=== PATIENT | male | born 1980 | race Caucasian/White ===

== ENCOUNTER → 2019-02-21 | Outpatient (CLI) | payer OTHER ==
--- NOTE | 2019-02-22 08:34 | CT ---
EXAMINATION TYPE: CT iac wo con DATE OF EXAM: 02/21/2019 COMPARISON: 03/06/2016 HISTORY: Right sided ear pain and hearing loss CT DLP: 251 mGycm. Automated Exposure Control for Dose Reduction was Utilized. TECHNIQUE: CT scan of internal auditory canal is performed without contrast, thin cut axial images ar e obtained, coronal reformatted images are also reviewed. FINDINGS: Just cranial to the oval windows bilaterally linear opacity that is attenuation of complex fluid is seen. The previously seen fluid within the petrous apices has resolved in the interim. There is no blunting of the scutum bilaterally. The external auditory canals are patent bilaterally. Mast oid air cells show no evidence of abnormal opacification bilaterally. The middle ear ossicles are sy mmetric and unremarkable. The cochlea and the semicircular canals are symmetric and unremarkable. V estibular aqueduct and internal carotid canal appear unremarkable. Temporomandibular joints are maintained bilaterally. Visualized paranasal sinuses are grossly clear other than mild mucosal thickening in the ethmoid sinuses. The previously seen circumferential mucosa l thickening of the sphenoid sinus is resolved in the interim. Visualized portion brain parenchyma is suboptimally evaluated given technique. IMPRESSION: 1. Bandlike scans complex fluid within the mesotympanum bilaterally may represent sequela of chronic otitis with formation of a septation. 2. Resolution of the previously seen scant petrous apical fluid in the setting of prior petrous apici tis and resolved sphenoid sinus mucosal thickening. 3. Scant mucosal thickening of the ethmoid sinuses.
== END | disposition home or self-care (01) ==
LOC: RADCTMAIN 16:30
PROVIDERS: ATTEND Family Medicine
DX: R93.49 Abnormal radiologic findings on diagnostic imaging of other urinary organs (principal); H70.11 Chronic mastoiditis, right ear
CPT/HCPCS: 70480

== ENCOUNTER → 2021-12-25 | Outpatient (CLI) | payer OTHER ==
--- NOTE | 2021-12-26 03:09 | MR ---
EXAMINATION TYPE: MR lumbar spine wo/w con DATE OF EXAM: 12/25/2021 COMPARISON: 02/10/2012 HISTORY: LBP, BLE radiculopathy. CONTRAST: Standard multiplanar, multisequence MRI departmental protocol images were obtained without contrast a nd with 14 mL intravenous Gadavist gadolinium contrast. The lumbar vertebrae have normal alignment. Disc spaces are fairly well-maintained. There is no compr ession fracture. Posterior elements are intact. Facet joints are intact. The neural foramina are well maintained. There is no lumbar paraspinal mass. There is no spinal stenosis. There is no evidence of lumbar disc herniation. Sacroiliac joints are intact. Lumbar nerve roots appear normal. IMPRESSION: Negative MR scan of the lumbar spine. No lumbar disc herniation or spinal stenosis. No change.
== END | disposition home or self-care (01) ==
LOC: RADMRIMAIN 21:38
PROVIDERS: ATTEND Family Medicine
DX: M54.16 Radiculopathy, lumbar region (principal)
CPT/HCPCS: 72158; A9585

== ENCOUNTER → 2022-01-08 | Outpatient (CLI) | payer OTHER ==
--- NOTE | 2022-01-08 09:27 | P.CON ---
Consult Note - . Consult date: 01/08/22 Assessment/Plan:: HISTORY OF PRESENT ILLNESS: 41 year old male as a referral from Dr. Alda Milton presents today for lower back pain due to muscle strain. Patient states his lower back pain is of an achy, throbbing character, 3 out of 10 in intensity, escalates as high as 8-9 out of 10 in intensity with bending, lifting or extending his spine. He also admits to achy pain that radiates to his left buttock. Alleviates pain with Motrin and Tylenol OTC cannabis use, injections in 2005, physical therapy in 2005, chiropractic treatments months ago, weekly cardio regimen at the gym, and rest. Past Medical History: GERD/Reflux, Hearing Disorder / Deafness, Hypertension, Lumbar DDD, Heterozygous MTHFR, ADD/ADHD, Bipolar Disorder Past Surgical History: Joint Replacement, DVT x3 (last 2012), L knee replacement, L index finger surgery Social History: Denies tobacco use. Rare ETOH use. Cannabis user. Family History: Mother- behavioral health. Father- CAD, [place], Defibrillator implantation. Brother- Denies. Sister- skin cancer All: NKDA Meds: See list REVIEW OF ORGAN SYSTEMS: CONSTITUTIONAL: No fevers or chills. No recent weight loss. HEENT: No visual acuity loss, eye pain, difficulties with hearing. No nosebleeds. No difficulty swallowing. RESPIRATORY: Denies any troubles with breathing or dyspnea on exertion. CARDIOVASCULAR: Denies any chest pain, palpitations, or recent heart attacks. GASTROINTESTINAL: Denies fatty food intolerance. Has change in bowel habits and gas bloat. GENITOURINARY: Denies any blood in urine. Has increased urinary frequency. NEUROLOGICAL: + numbness and tingling along the distal extremities. No seizure disorders or headaches. MUSCULOSKELETAL: + back pain SKIN: No skin cancer. No rash. PSYCHIATRIC: Denies current depression or suicidal thoughts. ENDOCRINE: Denies current thyroid disorders. Denies any blood sugar glucose intolerance. HEME/LYMPHATIC: Denies any lumps and bumps around the neck. History of deep venous thrombosis. ALLERGY/IMMUNOLOGY: No immunoglobulin therapy. No immune deficiencies. BREAST: Denies current breast lumps, pain or nipple discharge. Physical Examinations : Constitutional : Cooperative , not in acute distress . HEENT: Neck supple. No Lymphadenopathy. Normal thyroid size . Eyes no ptosis , no icterus, no photophobia . Hearing intact. Normal oropharynx. No Thrush. Respiratory : Chest clear to auscultations bilaterally. No wheezing. No rhonchi. Cardiovascular : Regular rate and rhythm , S1 / S2. No S3 . No S4. Gastrointestinal : Abdomen soft. No tenderness. Bowel sounds x 4. No organomegaly . Genitourinary : Deferred. Neurologic : Cranial nerve II to XII intact. No focal neurological deficits. Psychiatric : alert & oriented x 3. Matching mood & appropriate affect. Judgment & insight intact. Lymphatic No Lymphadenopathy. Musculoskeletal : Cervical Spine Motor strength in the deltoid and biceps: Normal right side. Normal Left side Motor strength biceps and the wrist extensors: Normal right side . Normal left side Motor strength in the triceps muscle: Normal right side. Normal left side Deep tendon reflexes: Normal at the biceps. Normal at Brachioradialis. Normal at triceps Cervical facet loading test: positive bilaterally Spurling test: positive bilaterally Neck distraction test: positive bilaterally Gatito sign: positive bilaterally Lumbar spine Motor strength lower extremities ,thigh and legs 5/5 Right side , 5/5 Left side Deep tendon reflexes : Normal Knee Jerk. Normal Ankle Jerk Vertebral body tenderness over Lumbar facet Loading Test: positive Right / positive Left Range of motion of the lumbar spine Flexion 30 degrees, extension 10 degrees Straight Leg Raise test: Left/ Right positive at degree Hai test: positive right / positive left. Severe tenderness over the Sacroiliac joint on the Right / Left sides Gaenslen test: positive bilaterally Seated flexion test: positive bilaterally. Imaging: MRI of the lumbar spine from 12/25/21 reviewed. Assessment/ Plan : Recommendation of TPI of the left L3 to S1. He need a series of injections to obtain sufficient pain relief. Risks, benefits of procedure discussed and patient verbalized understanding. Denies aspirin or anti- coagulant use. Denies medical history of DM. All questions answered. I have spent greater than 50 minutes on patient care today. Dr Sigala was available by phone for the evaluation of this patient. The time was used to review the medical records including relevant urine studies and Prescription history (MAPs), review of the available imaging, evaluation and examination of the patient, coordination of care with the medical staff and if applicable referring physicians, as well as creation of the medical record PQRS Measure Charge Sheet PQRS Narrative: Smoking Status Never smoker Narcotic Agreement Date Signed 06/26/14 Pain Intensity [Lower Back] 7 Scale Used Numeric (1 - 10) Hx Alcohol Use (MH) Yes Home Medications: Ambulatory Orders Aspirin 81 mg PO DAILY chew 01/31/16 Apixaban [Eliquis] 5 mg PO BID 01/06/22 Atorvastatin [Lipitor] 20 mg PO DAILY 01/06/22 Esomeprazole Magnesium 40 mg PO DAILY 01/06/22 Vortioxetine Hydrobromide [Trintellix] 10 mg PO DAILY 01/06/22 dilTIAZem HCL [dilTIAZem HCL 24Hr ER (Xr)] 240 mg PO DAILY 01/06/22 hydroCHLOROthiazide [Hydrodiuril] 25 mg PO DAILY 01/06/22 lisinopriL 40 mg PO DAILY 01/06/22 traZODone HCL 100 mg PO HS 01/06/22
[2022-01-08 10:55] VITALS: BP 186/89; PULSE 87; RESP 16; TEMP 97.9
== END ==
LOC: PNWHC3 08:37
PROVIDERS: ATTEND Physician Assistant Medical
DX: M54.50 Low back pain, unspecified (principal); K21.9 Gastro-esophageal reflux disease without esophagitis; H91.90 Unspecified hearing loss, unspecified ear; I10 Essential (primary) hypertension; F31.9 Bipolar disorder, unspecified; Z79.899 Other long term (current) drug therapy
CPT/HCPCS: 99211

== ENCOUNTER 2022-01-09 09:41 | Day surgery (SDC) | payer OTHER ==
[2022-01-06 12:18] VITALS: BMI 43.0
--- NOTE | 2022-01-09 07:50 | P.GSHP ---
History of Present Illness H&P Date: 01/09/22 CHIEF COMPLAINT: Colon screen HISTORY OF PRESENT ILLNESS: The patient is a 41-year-old male who presents for colon screen. Lower endoscopy was offered for further evaluation and management. PAST MEDICAL HISTORY: Please see list. PAST SURGICAL HISTORY: Please see list. MEDICATIONS: Please see list. ALLERGIES: Please see list. SOCIAL HISTORY: No illicit drug use FAMILY HISTORY: No reports of Crohn disease or ulcerative colitis. REVIEW OF ORGAN SYSTEMS: CONSTITUTIONAL: No reports of fevers or chills. PHYSICAL EXAM: VITAL SIGNS: Stable GENERAL: Well-developed pleasant in no acute distress. HEENT: No scleral icterus. Extraocular movements grossly intact. Moist buccal mucosa. NECK: Supple without lymphadenopathy. CHEST: Unlabored respirations. Equal bilateral excursions. CARDIOVASCULAR: Regular rate and rhythm. Distal 2+ pulses. ABDOMEN: Soft, nontender, nondistended. MUSCULOSKELETAL: No clubbing, cyanosis, or edema. ASSESSMENT: 1. Colon screen. PLAN: 1. Recommend proceeding with a lower endoscopy Past Medical History Past Medical History: Atrial Fibrillation, Blood Disorder, GERD/Reflux, Hearing Disorder / Deafness, Hyperlipidemia, Hypertension, Myocardial Infarction (SC) Additional Past Medical History / Comment(s): DVT X 3- LAST TIME 2012- LT LEG, LUMBAR DDD- . HAS HX MTHFR GENE MUTATION-POSITIVE FOR HETEROZYGOUS PER DR. FRANCISCO'S OFFICE,. SLIGHT SC-09/2021 Last Myocardial Infarction Date:: 09/2021 History of Any Multi-Drug Resistant Organisms: None Reported Past Surgical History: Heart Catheterization, Joint Replacement Additional Past Surgical History / Comment(s): LEFT KNEE REPLACEMENT AND LT INDEX JOINT REPLACEMENT, PAIN CLINIC PROCEDURES, COLONOSCOPY Past Anesthesia/Blood Transfusion Reactions: Previous Problems w/ Anesthesia, Family History of Problems w/ Anesthesia, Motion Sickness Additional Past Anesthesia/Blood Transfusion Reaction / Comment(s): HARD TO PUT TO SLEEP-(pt and father) Smoking Status: Never smoker - Past Family History Father Family Medical History: Coronary Artery Disease (CAD) Additional Family Medical History / Comment(s): Father is age 69 with history of coronary artery disease with previous myocardial infarction and defibrillator implantation. Brother(s) Additional Family Medical History / Comment(s): Patient has 1 brother that is healthy and 1 sister with history of skin cancer. Patient has 3 daughters that are age 4, 5, 11. Mother History Unknown: Yes Family Medical History: No Reported History Additional Family Medical History / Comment(s): Mother is 67 years of age and has mental health issues. Medications and Allergies Home Medications Medication Instructions Recorded Confirmed Type Aspirin 81 mg PO DAILY chew 01/31/16 01/06/22 Rx Apixaban [Eliquis] 5 mg PO BID 01/06/22 01/06/22 History Atorvastatin [Lipitor] 20 mg PO DAILY 01/06/22 01/06/22 History Esomeprazole Magnesium 40 mg PO DAILY 01/06/22 01/06/22 History Vortioxetine Hydrobromide 10 mg PO DAILY 01/06/22 01/06/22 History [Trintellix] dilTIAZem HCL [dilTIAZem HCL 24Hr 240 mg PO DAILY 01/06/22 01/06/22 History ER (Xr)] hydroCHLOROthiazide [Hydrodiuril] 25 mg PO DAILY 01/06/22 01/06/22 History lisinopriL 40 mg PO DAILY 01/06/22 01/06/22 History traZODone HCL 100 mg PO HS 01/06/22 01/06/22 History Allergies Allergy/AdvReac Type Severity Reaction Status Date / Time No Known Allergies Allergy Verified 01/06/22 11:57
[~2022-01-09 09:41] MED LIST: LACTATED RINGERS 1,000 ML IV SCH; LIDOCAINE 1% (10MG/ML) FOR IV START INTRADERMA PRN
[2022-01-09 09:57] VITALS: TEMP 96.9
[2022-01-09] MEDS ORDERED: PROPOFOL 10 MG/ML 20 ML VIAL IV ONE (10:14)
[2022-01-09] MEDS ORDERED: LIDOCAINE 1% INJ 10MG/ML (20 ML MDV) ONE (10:14)
[2022-01-09 10:48] VITALS: RESP 16
--- NOTE | 2022-01-09 10:49 | P.PCN ---
Date of Procedure: 01/09/22 Description of Procedure: PREOPERATIVE DIAGNOSIS: Family history malignant colon polyps Colonoscopy screening POSTOPERATIVE DIAGNOSIS: Tubular adenoma hepatic flexure Sigmoid diverticulosis OPERATION: Colonoscopy to the ileocecal valve and appendiceal orifice, cecum Colonoscopy with cold forceps biopsy SURGEON: Lo Sun MD. ANESTHESIA: MAC. INDICATIONS: The patient is an 41-year-old male who presents family history of malignant colon polyps and his first screening. Benefits and risks were described and informed consent was obtained. DESCRIPTION OF PROCEDURE: The patient had undergone Sutab prep. The patient had been brought into the operating room and laid in the left lateral decubitus position. After adequate intravenous sedation, the rectum was examined with 2% lidocaine jelly. The prostate was unremarkable. External hemorrhoids were encountered. The rectal tone was within normal limits. No lesions were palpated in the rectal vault. An Olympus colonoscope was advanced until the cecum, ileocecal valve and appendiceal orifice were clearly viewed. The prep was good. Sigmoid diverticulosis was encountered. Colonic polyps were found and removed. No evidence of focal colitis was found. Retroflexion of the scope demonstrated grade 1 internal hemorrhoids without active bleeding or inflammation. The colon was desufflated. The patient had tolerated the procedure well. Withdrawal time was over 6 minutes. FINDINGS: Aronchick preparation quality scale 2 (1-5) Internal hemorrhoids, grade 1 No external hemorrhoids No arteriovenous malformations. Sigmoid diverticulosis Removal of 1 polyp: - Cold forceps biopsy at hepatic flexure colon, 4 mm polyp. No focal colitis. RECOMMENDATIONS: Repeat colonoscopy in 3 years, 2024 Plan - Discharge Summary Discharge Rx Participant: No New Discharge Prescriptions: Continue Aspirin 81 mg PO DAILY chew hydroCHLOROthiazide [Hydrodiuril] 25 mg PO DAILY Atorvastatin [Lipitor] 20 mg PO DAILY dilTIAZem HCL [dilTIAZem HCL 24Hr ER (Xr)] 240 mg PO DAILY Vortioxetine Hydrobromide [Trintellix] 10 mg PO DAILY Esomeprazole Magnesium 40 mg PO DAILY Apixaban [Eliquis] 5 mg PO BID lisinopriL 40 mg PO DAILY traZODone HCL 100 mg PO HS Discharge Medication List Aspirin 81 mg PO DAILY chew 01/31/16 [Rx] Apixaban [Eliquis] 5 mg PO BID 01/06/22 [History] Atorvastatin [Lipitor] 20 mg PO DAILY 01/06/22 [History] Esomeprazole Magnesium 40 mg PO DAILY 01/06/22 [History] Vortioxetine Hydrobromide [Trintellix] 10 mg PO DAILY 01/06/22 [History] dilTIAZem HCL [dilTIAZem HCL 24Hr ER (Xr)] 240 mg PO DAILY 01/06/22 [History] hydroCHLOROthiazide [Hydrodiuril] 25 mg PO DAILY 01/06/22 [History] lisinopriL 40 mg PO DAILY 01/06/22 [History] traZODone HCL 100 mg PO HS 01/06/22 [History] Follow up Appointment(s)/Referral(s): Lo Sun MD [STAFF PHYSICIAN] - 01/23/22 Patient Instructions/Handouts: Colorectal Polyps (GEN), Diverticulosis Diet (GEN), Diverticulosis (GEN) Activity/Diet/Wound Care/Special Instructions: Repeat colonoscopy in 3 years, 2024 Discharge Disposition: HOME SELF-CARE
[2022-01-09 11:03] VITALS: BP 133/80; PULSE 84
== END 2022-01-09 11:16 | disposition home or self-care (01) ==
LOC: ORWHC2ENDO 09:41
PROVIDERS: ATTEND Surgery Plastic and Reconstructive Surgery
DX: Z12.11 Encounter for screening for malignant neoplasm of colon (principal); K63.5 Polyp of colon; Z80.0 Family history of malignant neoplasm of digestive organs; K57.30 Diverticulosis of large intestine without perforation or abscess without bleeding; K64.0 First degree hemorrhoids; I48.91 Unspecified atrial fibrillation; K21.9 Gastro-esophageal reflux disease without esophagitis; H91.90 Unspecified hearing loss, unspecified ear; E78.5 Hyperlipidemia, unspecified; I10 Essential (primary) hypertension; F32.A Depression, unspecified; I25.2 Old myocardial infarction; Z86.718 Personal history of other venous thrombosis and embolism; E72.12 Methylenetetrahydrofolate reductase deficiency; Z98.890 Other specified postprocedural states; Z96.652 Presence of left artificial knee joint; Z96.692 Finger-joint replacement of left hand; Z82.49 Family history of ischemic heart disease and other diseases of the circulatory system; Z80.8 Family history of malignant neoplasm of other organs or systems; Z79.01 Long term (current) use of anticoagulants; Z79.82 Long term (current) use of aspirin; Z79.899 Other long term (current) drug therapy
CPT/HCPCS: 88305; 45380; J2001; J2704

== ENCOUNTER 2022-01-13 19:37 | Observation (INO) | payer OTHER ==
--- NOTE | 2022-01-13 20:14 | ED ---
Arrhythmia/Palpitations HPI <Misbah Thomas - Last Filed: 01/13/22 21:05> - General Source: patient, RN notes reviewed Mode of arrival: wheelchair Limitations: no limitations <Bruno White - Last Filed: 01/13/22 22:18> - General Chief Complaint: Arrhythmia/Palpitations Stated Complaint: Chest Pain, SOB, AFIB Time Seen by Provider: 01/13/22 20:02 - History of Present Illness Initial Comments: This is a pleasant 41-year-old male with a history of atrial fibrillation and hypertension. Patient states about 4 PM he started developing some chest discomfort. He is describing a pressure in the anterior chest. No radiation. He also had a sensation of shortness of breath. Patient states she checked his watch and saw that his heart rate was well over 100. His pressure was also greater than 200/100. Patient has had some diaphoresis, no nausea, no vomiting, no abdominal pain. Patient states the chest pressure is still present. No headache, no fever or chills, no changes in vision or hearing, no sore throat or difficulty with speech, no neck pain, no abdominal pain, no nausea or vomiting, no changes in urination or bowel movements, no numbness or tingling, no extremity pain, no skin rashes or lesions. (Bruno White) - Related Data Home Medications Medication Instructions Recorded Confirmed Apixaban [Eliquis] 5 mg PO BID 01/06/22 01/13/22 Atorvastatin [Lipitor] 20 mg PO DAILY 01/06/22 01/13/22 Esomeprazole Magnesium 40 mg PO DAILY 01/06/22 01/13/22 Vortioxetine Hydrobromide 10 mg PO DAILY 01/06/22 01/13/22 [Trintellix] dilTIAZem HCL [dilTIAZem HCL 24Hr 240 mg PO DAILY 01/06/22 01/13/22 ER (Xr)] hydroCHLOROthiazide [Hydrodiuril] 25 mg PO DAILY 01/06/22 01/13/22 lisinopriL 40 mg PO DAILY 01/06/22 01/13/22 Mirtazapine [Remeron] 15 mg PO HS PRN 01/13/22 01/13/22 busPIRone HCL 15 mg PO BID 01/13/22 01/13/22 hydrOXYzine HCL [Atarax] 50 mg PO TID 01/13/22 01/13/22 Previous Rx's Medication Instructions Recorded Aspirin 81 mg PO DAILY chew 01/31/16 Allergies Allergy/AdvReac Type Severity Reaction Status Date / Time No Known Allergies Allergy Verified 01/13/22 21:48 Review of Systems ROS Other: All systems not noted in ROS Statement are negative. <Misbah Thomas - Last Filed: 01/13/22 21:05> ROS Other: All systems not noted in ROS Statement are negative. <Bruno White - Last Filed: 01/13/22 22:18> ROS Statement: Those systems with pertinent positive or pertinent negative responses have been documented in the HPI. Past Medical History Past Medical History: Atrial Fibrillation, Blood Disorder, GERD/Reflux, Hearing Disorder / Deafness, Hypertension, Myocardial Infarction ([place]) Additional Past Medical History / Comment(s): DVT X 3- LAST TIME 2012- LT LEG, LUMBAR DDD- . HAS HX MTHFR GENE MUTATION-POSITIVE FOR HETEROZYGOUS PER DR. FRANCISCO'S OFFICE Last Myocardial Infarction Date:: 09/2021 History of Any Multi-Drug Resistant Organisms: None Reported Past Surgical History: Heart Catheterization, Joint Replacement Additional Past Surgical History / Comment(s): LEFT KNEE REPLACEMENT AND LT INDEX JOINT REPLACEMENT, PAIN CLINIC PROCEDURES, COLONOSCOPY Past Anesthesia/Blood Transfusion Reactions: Previous Problems w/ Anesthesia, Family History of Problems w/ Anesthesia, Motion Sickness Additional Past Anesthesia/Blood Transfusion Reaction / Comment(s): HARD TO PUT TO SLEEP-(pt and father) Past Psychological History: Depression Smoking Status: Never smoker Past Alcohol Use History: Occasional Past Drug Use History: None Reported - Past Family History Father Family Medical History: Coronary Artery Disease (CAD) Additional Family Medical History / Comment(s): Father is age 69 with history of coronary artery disease with previous myocardial infarction and defibrillator implantation. Brother(s) Additional Family Medical History / Comment(s): Patient has 1 brother that is healthy and 1 sister with history of skin cancer. Patient has 3 daughters that are age 4, 5, 11. Mother History Unknown: Yes Family Medical History: No Reported History Additional Family Medical History / Comment(s): Mother is 67 years of age and has mental health issues. <Bruno White - Last Filed: 01/13/22 22:18> General Exam Limitations: no limitations General appearance: in distress, obese Head exam: Present: atraumatic, normocephalic, normal inspection Eye exam: Present: normal appearance, PERRL, EOMI. Absent: scleral icterus, conjunctival injection, periorbital swelling ENT exam: Present: normal exam, mucous membranes moist Neck exam: Present: normal inspection. Absent: tenderness, meningismus, lymphadenopathy Respiratory exam: Present: normal lung sounds bilaterally. Absent: respiratory distress, wheezes, rales, rhonchi, stridor Cardiovascular Exam: Present: regular rate, normal rhythm, normal heart sounds. Absent: systolic murmur, diastolic murmur, rubs, gallop, clicks GI/Abdominal exam: Present: soft, normal bowel sounds. Absent: distended, tenderness, guarding, rebound, rigid Extremities exam: Present: normal inspection, full ROM, normal capillary refill. Absent: tenderness, pedal edema, joint swelling, calf tenderness Back exam: Present: normal inspection Neurological exam: Present: alert, oriented X3, CN II-XII intact Psychiatric exam: Present: normal affect, normal mood Skin exam: Present: warm, dry, intact, normal color. Absent: rash <Bruno White - Last Filed: 01/13/22 22:18> - General Exam Comments Initial Comments: Patient in mild distress, noted to be hypertensive. Patient does not appear to be ill or toxic. 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 Patient now being assessed by the ED attending physician, Dr. Thomas Patient is informed of results and questions answered Patient in no distress (Bruno White) Reevaluation #2: 01/13/22 20:57 Medical record is reviewed Symptoms are improved --patient had some relief with nitroglycerin. Patient is informed of results and questions answered Patient in no distress (Bruno White) EKG Findings - EKG Comments: EKG Findings:: EKG shows sinus rhythm with a short IN interval, nonspecific T- wave abnormality, normal axis, no definitive ST elevation. When compared with previous study from May 2014there is no specific change. We will assess for a more recent EKG as the patient states he was given a cardiac catheterization in October. Remainder of the intervals are normal. Repeat EKG at 2112 reveals sinus rhythm with rate of 77, normal axis, no definitive ST changes. No cure his morphology. Normal intervals. No significant change from the initial study <Bruno White - Last Filed: 01/13/22 22:18> Medical Decision Making - Lab Data Result diagrams: 01/13/22 20:16 <Misbah Thomas - Last Filed: 01/13/22 21:05> - Lab Data Result diagrams: 01/13/22 20:16 <Bruno White - Last Filed: 01/13/22 22:18> - Medical Decision Making Patient was seen and evaluated with physician educational program assistant, Jc White. Patient seen and evaluated at the bedside at 8:45 PM. Patient is 41-year-old male presents with typical chest pain for the last several hours. He has strong family history her father was at the bedside had his first heart attack in his 40s. Patient allegedly had a cardiac cath one year ago and did not receive a stent at that time. Unclear what the results of cardiac cath was. Serial EKGs were reviewed. Compared to EKG from 2013. There doesn't appear to be any reciprocal changes however there does appear to be some slight ST elevation seen in the precordial leads. Patient having active chest pain. Cardiology was contacted. Spoke with Dr. Wolfe at 8:50 PM. He will go through the cardiology office charts to look for any results on cardiac cath. Furthermore he will review the EKGs through the electronic medical record. Dr. Wolfe was able to access patient's chart states that he Patient in September with clean cath and no findings of coronary artery disease while he was at [facility]. He also at that time had negative troponins. He did review the EKGs did not feel that patient's EKG reflected ischemia or infarction. His recommendation was to obtain serial troponins and serial EKGs. (Misbah Thomas) The case was discussed in detail with ED attending physician. Presentation, findings, treatment plan discussed in detail--case discussed at 8:[address] Thomas. Patient presents with chest pressure. Differential includes cardiac ischemia, chest wall pain, palpitations, will give aspirin and nitroglycerin. EKG shows nonspecific changes. EKG was discussed immediately with ED attending physician. No definitive ST elevation. We'll repeat EKG 30 minutes. This case was discussed with cardiology by the ED attending physician. I discu ssed the case with the admitting hospitalist physician, Dr. Luo. Patient will be admitted for serial troponins and observation. Cardiology consultation. (Bruno White) - Lab Data Lab Results 01/13/22 01/13/22 01/13/22 Range/Units 20:16 20:16 21:04 WBC 10.5 (3.8-10.6) k/uL RBC 5.49 (4.30-5.90) m/uL Hgb 16.3 (13.0-17.5) gm/dL Hct 48.2 (39.0-53.0) % MCV 87.8 (80.0-100.0) fL MCH 29.7 (25.0-35.0) pg MCHC 33.8 (31.0-37.0) g/dL RDW 14.3 (11.5-15.5) % Plt Count 257 (150-450) k/uL MPV 6.7 Neutrophils % 79 % Lymphocytes % 14 % Monocytes % 5 % Eosinophils % 1 % Basophils % 0 % Neutrophils # 8.3 H (1.3-7.7) k/uL Lymphocytes # 1.5 (1.0-4.8) k/uL Monocytes # 0.5 (0-1.0) k/uL Eosinophils # 0.1 (0-0.7) k/uL Basophils # 0.0 (0-0.2) k/uL PT 10.1 (9.0-12.0) sec INR 0.9 (<1.2) APTT 23.5 (22.0-30.0) sec Troponin I <0.012 (0.000-0.034) ng/mL Disposition <Misbah Thomas - Last Filed: 01/13/22 21:05> Time of Disposition: 22:08 <Bruno White - Last Filed: 01/13/22 22:18> Clinical Impression: Chest pain, Uncontrolled hypertension Disposition: ADMITTED IP TO THIS HOSP Condition: Fair
[2022-01-13] MEDS ORDERED: ASPIRIN 81 MG PO STA (20:18)
[2022-01-13] MEDS ORDERED: NITROGLYCERIN SL TABS 0.4 MG TAB SUBLINGUAL PRN (20:18)
--- NOTE | 2022-01-13 20:28 | XR ---
EXAMINATION TYPE: XR chest 2V DATE OF EXAM: 01/13/2022 8:06 PM COMPARISON:Chest radiographs from 09/03/2013. TECHNIQUE: XR chest 2V Frontal and lateral views of the chest. CLINICAL INDICATION:Male, 41 years old with history of dysrhythmia; FINDINGS: Lungs/Pleura: There is no evidence of pleural effusion, focal consolidation, or pneumothorax. Pulmonary vascularity: Unremarkable. Heart/mediastinum: Cardiomediastinal silhouette is unremarkable. Musculoskeletal: No acute osseous pathology. IMPRESSION: No acute cardiopulmonary disease/process.
[2022-01-13 20:29] LABS: Basophils % (A) 0 %; Eosinophils # (A) 0.1 k/uL (0-0.7); Eosinophils % (A) 1 %; HCT 48.2 % (39.0-53.0); HGB 16.3 gm/dL (13.0-17.5); Lymphocytes # (A) 1.5 k/uL (1.0-4.8); Lymphocytes % (A) 14 %; MCH 29.7 pg (25.0-35.0); MCHC 33.8 g/dL (31.0-37.0); MCV 87.8 fL (80.0-100.0); Mean Platelet Volume 6.7; Monocytes # (A) 0.5 k/uL (0-1.0); Monocytes % (A) 5 %; Neutrophils # (A) 8.3 k/uL (1.3-7.7); Neutrophils % (A) 79 %; Platelet Count 257 k/uL (150-450); RBC 5.49 m/uL (4.30-5.90); RDW 14.3 % (11.5-15.5); WBC 10.5 k/uL (3.8-10.6)
[2022-01-13 20:47] LABS: INR 0.9 (<1.2); Partial Thromboplastin Time 23.5 sec (22.0-30.0); Prothrombin Time 10.1 sec (9.0-12.0)
[2022-01-13] MEDS ORDERED: NITROGLYCERIN-D5W PMX 50 MG in DEXTROSE/WATER 1 250ML.BAG IV ONE (20:57)
[2022-01-13] MEDS ORDERED: NITROGLYCERIN OINT 1 INCH/GM PACKET TOPICAL STA (21:00)
[2022-01-13 21:28] LABS: ALT 55 U/L (4-49); African American GFR (CKD) >90 (>60 ml/min/1.73 sqM); Anion Gap 6 mmol/L; Blood Urea Nitrogen 16 mg/dL (9-20); Calcium 9.1 mg/dL (8.4-10.2); Carbon Dioxide 26 mmol/L (22-30); Chloride 103 mmol/L (98-107); Glucose 112 mg/dL (74-99); Non-African American GFR(CKD) >90 (>60 ml/min/1.73 sqM); Sodium 135 mmol/L (137-145); Total Bilirubin 0.8 mg/dL (0.2-1.3)
[2022-01-13] MEDS ORDERED: ACETAMINOPHEN TAB 325 MG TAB PO PRN (22:13)
[2022-01-13] MEDS ORDERED: NALOXONE 0.4 MG/ML 1 ML VIAL IV PRN (22:13)
[2022-01-13] MEDS ORDERED: ONDANSETRON 4 MG/2 ML VIAL IVP PRN (22:13)
[2022-01-13 22:14] LABS: Total Protein 6.6 g/dL (6.3-8.2)
[2022-01-13 22:15] LABS: AST 41 U/L (17-59); Alkaline Phosphatase 74 U/L (38-126); Magnesium 2.1 mg/dL (1.6-2.3); Potassium 4.1 mmol/L (3.5-5.1)
[2022-01-13] MEDS ORDERED: ENOXAPARIN 40 MG/0.4 ML SYRINGE SQ SCH (22:30)
[2022-01-13] MEDS ORDERED: LORazepam 1 MG TAB PO STA (23:30)
[2022-01-13] MEDS: MORPHINE SULFATE 4 MG/ML SYRINGE IV PRN (23:54)
[2022-01-14] MEDS ORDERED: ZOLPIDEM 5 MG TAB PO PRN (01:28)
--- NOTE | 2022-01-14 01:38 | P.HPIM ---
History of Present Illness H&P Date: 01/13/22 Chief Complaint: Chest pain 41-year-old male with paroxysmal A. fib and hypertension Patient comes in with sudden onset left-sided chest pain rated as 8 out of 10 throbbing in nature, started suddenly while driving he wasn't doing anything physical at the time reports associated diaphoresis and tachypnea denies any nausea or vomiting denies any dizziness or lightheadedness he wears a smart watch which was telling him that he is in A. fib and then we took when he took his vital signs he noticed that his blood pressure was elevated for which she decided to come into the hospital for evaluation. Patient reports strong family history of cardiac disease in the family Patient had clean left heart cath last year. EKG showed nonspecific ST changes. Case was discussed with cardiology recommended admission for observation for chest pain rule out and serial troponins Initial workup showed negative troponin rest of his blood work was unremarkable Chest x-ray was negative Patient denies any recent travel her hospital stay. He denies any exertional dyspnea at baseline. He reports that his A. fib has been controlled with by mouth Cardizem Patient is on Eliquis due to recurrent history of blood clots in the past Review of Systems Pertinent positives as noted in HPI. All other systems were reviewed and are negative Past Medical History Past Medical History: Atrial Fibrillation, Blood Disorder, GERD/Reflux, Hearing Disorder / Deafness, Hypertension, Myocardial Infarction ([place]) Additional Past Medical History / Comment(s): DVT X 3- LAST TIME 2012- LT LEG, LUMBAR DDD- . HAS HX MTHFR GENE MUTATION-POSITIVE FOR HETEROZYGOUS PER DR. FRANCISCO'S OFFICE Last Myocardial Infarction Date:: 09/2021 History of Any Multi-Drug Resistant Organisms: None Reported Past Surgical History: Heart Catheterization, Joint Replacement Additional Past Surgical History / Comment(s): LEFT KNEE REPLACEMENT AND LT INDEX JOINT REPLACEMENT, PAIN CLINIC PROCEDURES, COLONOSCOPY Past Anesthesia/Blood Transfusion Reactions: Previous Problems w/ Anesthesia, Family History of Problems w/ Anesthesia, Motion Sickness Additional Past Anesthesia/Blood Transfusion Reaction / Comment(s): HARD TO PUT TO SLEEP-(pt and father) Past Psychological History: Depression Smoking Status: Never smoker Past Alcohol Use History: Occasional Past Drug Use History: None Reported - Past Family History Father Family Medical History: Coronary Artery Disease (CAD) Additional Family Medical History / Comment(s): Father is age 69 with history of coronary artery disease with previous myocardial infarction and defibrillator implantation. Brother(s) Additional Family Medical History / Comment(s): Patient has 1 brother that is healthy and 1 sister with history of skin cancer. Patient has 3 daughters that are age 4, 5, 11. Mother History Unknown: Yes Family Medical History: No Reported History Additional Family Medical History / Comment(s): Mother is 67 years of age and has mental health issues. Medications and Allergies Home Medications Medication Instructions Recorded Confirmed Type Aspirin 81 mg PO DAILY chew 01/31/16 01/13/22 Rx Apixaban [Eliquis] 5 mg PO BID 01/06/22 01/13/22 History Atorvastatin [Lipitor] 20 mg PO DAILY 01/06/22 01/13/22 History Esomeprazole Magnesium 40 mg PO DAILY 01/06/22 01/13/22 History Vortioxetine Hydrobromide 10 mg PO DAILY 01/06/22 01/13/22 History [Trintellix] dilTIAZem HCL [dilTIAZem HCL 24Hr 240 mg PO DAILY 01/06/22 01/13/22 History ER (Xr)] hydroCHLOROthiazide [Hydrodiuril] 25 mg PO DAILY 01/06/22 01/13/22 History lisinopriL 40 mg PO DAILY 01/06/22 01/13/22 History Mirtazapine [Remeron] 15 mg PO HS PRN 01/13/22 01/13/22 History busPIRone HCL 15 mg PO BID 01/13/22 01/13/22 History hydrOXYzine HCL [Atarax] 50 mg PO TID 01/13/22 01/13/22 History Allergies Allergy/AdvReac Type Severity Reaction Status Date / Time No Known Allergies Allergy Verified 01/13/22 21:48 Physical Exam Vitals: Vital Signs Temp Pulse Pulse Resp BP Pulse Ox 01/14/22 01:28 79 18 144/86 96 01/13/22 23:00 78 18 138/93 97 01/13/22 22:00 76 18 114/76 97 01/13/22 21:53 75 18 126/79 97 01/13/22 20:40 90 01/13/22 20:28 90 18 163/92 97 01/13/22 19:41 98.2 F 92 18 170/96 98 Intake and Output 01/13/22 01/13/22 01/14/22 14:59 22:59 06:59 Other: Weight 149.685 kg Constitutional: No acute distress, conversant, pleasant Eyes: Anicteric sclerae, moist conjunctiva, Pupils equal round reactive to light ENMT: NC/AT Oropharynx clear, no erythema, or exudates Neck: Supple, FROM, no masses, or JVD No carotid bruits No thyromegaly Lungs: Clear to auscultation Clear to percussion Normal respiratory effort, no accessory muscle use Cardiovascular: Heart regular in rate and rhythm, No murmurs, gallops, or rubs No peripheral edema Abdominal: Soft Nontender, no guarding, rebound or rigidity Abdomen moving with respiration Normoactive bowel sounds No hepatomegaly, No splenomegaly No palpable mass No abdominal wall hernia noted Skin: Normal temperature, tone, texture, turgor No induration No subcutaneous nodules No rash, lesions No ulcers Extremities: No digital cyanosis No clubbing Pedal pulses intact and symmetrical Radial pulses intact and symmetrical No calf tenderness Psychiatric: Alert and oriented to person, place and time Appropriate affect fair judgement Neuro Muscles Strength 5/5 in all 4 extremities Sensation to light touch grossly present throughout Cranial nerves II-XII grossly intact No focal sensory deficits Lymphatics: no palpable cervical or supraclavicular , or inguinal lymph nodes Results CBC & Chem 7: 01/13/22 20:16 01/13/22 21:04 Labs: Abnormal Lab Results - Last 24 Hours (Table) 01/13/22 01/13/22 Range/Units 20:16 21:04 Neutrophils # 8.3 H (1.3-7.7) k/uL Sodium 135 L (137-145) mmol/L Glucose 112 H (74-99) mg/dL ALT 55 H (4-49) U/L Assessment and Plan Assessment: Atypical chest pain rule out ACS 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 fib Continue with Cardizem History of multiple episodes of deep vein thrombosis History of genetic mutation Continue Eliquis Hypertension Continue with home cardiac meds Hyperlipidemia Continue statin Anxiety Ambien for sleep Full code DVT prophylaxis patient on Eliquis for history of venous thromboembolic Anticipated length of stay less than 2 midnights
[2022-01-14] MEDS: SODIUM CHLORIDE 0.9% 1,000 ML IV SCH ×2 (03:41→15:00)
[2022-01-14 05:17] LABS: African American GFR (CKD) >90 (>60 ml/min/1.73 sqM); Anion Gap 5 mmol/L; Blood Urea Nitrogen 19 mg/dL (9-20); Calcium 8.9 mg/dL (8.4-10.2); Carbon Dioxide 31 mmol/L (22-30); Chloride 101 mmol/L (98-107); Glucose 103 mg/dL (74-99); Magnesium 2.1 mg/dL (1.6-2.3); Non-African American GFR(CKD) >90 (>60 ml/min/1.73 sqM); Potassium 3.5 mmol/L (3.5-5.1); Sodium 137 mmol/L (137-145)
[2022-01-14 05:26] LABS: Basophils # (A) 0.1 k/uL (0-0.2); Basophils % (A) 1 %; Eosinophils # (A) 0.1 k/uL (0-0.7); Eosinophils % (A) 1 %; HCT 46.2 % (39.0-53.0); HGB 15.3 gm/dL (13.0-17.5); Lymphocytes # (A) 2.4 k/uL (1.0-4.8); Lymphocytes % (A) 29 %; MCH 29.1 pg (25.0-35.0); MCHC 33.1 g/dL (31.0-37.0); MCV 87.9 fL (80.0-100.0); Mean Platelet Volume 6.8; Monocytes # (A) 0.6 k/uL (0-1.0); Monocytes % (A) 7 %; Neutrophils % (A) 61 %; Platelet Count 225 k/uL (150-450); RBC 5.25 m/uL (4.30-5.90); WBC 8.2 k/uL (3.8-10.6)
[2022-01-14] MEDS ORDERED: PANTOPRAZOLE 40 MG TABLET PO SCH (07:30)
[2022-01-14] MEDS ORDERED: POTASSIUM CHLORIDE ER 20 MEQ TAB.ER PO STA (07:59)
[2022-01-14] MEDS: MORPHINE SULFATE 4 MG/ML SYRINGE IV PRN (08:44)
[2022-01-14] MEDS ORDERED: METOPROLOL TARTRATE 12.5 MG TAB PO SCH (09:00)
[2022-01-14] MEDS ORDERED: DILTIAZEM CD 240 MG CAP.ER.24H PO SCH (09:00)
[2022-01-14] MEDS ORDERED: lisinopriL 20 MG TAB PO SCH (09:00)
[2022-01-14] MEDS ORDERED: busPIRone HCl 5 MG TAB PO SCH (09:00)
[2022-01-14] MEDS ORDERED: VORTIOXETINE HYDROBROMIDE 10 MG TABLET PO SCH (09:00)
[2022-01-14] MEDS ORDERED: amLODIPine 5 MG TAB PO SCH (09:00)
[2022-01-14] MEDS ORDERED: ATORVASTATIN 20 MG TAB PO SCH (09:00)
[2022-01-14] MEDS ORDERED: ASPIRIN 325 MG TAB PO SCH (09:00)
[2022-01-14] MEDS ORDERED: hydrOXYzine HCL 25 MG TAB PO SCH (09:00)
[2022-01-14] MEDS ORDERED: APIXABAN 5 MG TAB PO SCH (09:00)
[2022-01-14] MEDS ORDERED: hydroCHLOROthiazide 25 MG TAB PO SCH (09:00)
--- NOTE | 2022-01-14 13:23 | CONS ---
CONSULTATION Jose Juan Crisostomo is a 41-year-old obese gentleman with a history of hypertension, paroxysmal atrial fibrillation and also a history of DVT. He sees Dr. Wolfe in the outpatient setting. In September he had a cardiac catheterization because of atypical chest pain which was unremarkable. His blood pressure control was suboptimal. He takes aspirin and Eliquis combination. He came into the hospital mainly because of accelerated blood pressure and his pressure continued to be high. He was concerned and came into the hospital. He also complained of some chest tightness and pressure. The quality of pain is atypical. Troponins are normal. Blood pressure was, however, higher and that made him more anxious and he came into the hospital. At the time of my evaluation the pressure has improved. He feels better. No further symptoms. He is resting comfortably at the time of my evaluation. His 3 sets of troponins are normal and he had a cardiac catheterization in September that was also unremarkable. On examination, his blood pressure is 160/90. Pulse rate is about 80 per minute. HEENT unremarkable. Fundus was not examined by me. Neck is supple. No JVD. I do not hear a carotid bruit. There is no thyromegaly. Heart exam reveals S1, S2 heard normally but distantly. Lungs are clear. Abdomen is soft, nontender. Lower extremities reveal normal pulses. No edema. Central nervous system is normal. EKG revealed sinus mechanism, no acute changes. Troponins are normal. IMPRESSION: 1. Accelerated hypertension. 2. Atypical chest pain. 3. History of normal coronaries in September. 4. History of paroxysmal atrial fibrillation, in sinus rhythm. 5. History of deep vein thrombosis. RECOMMENDATIONS: I am recommending that we will optimize his blood pressure control, add amlodipine 5 mg b.i.d. to his regimen, and continue his other medications as before except diltiazem, which I will stop. Continue lisinopril and add metoprolol tartrate 12.5 mg daily. We will keep him in the hospital. Once his blood pressure control is optimized, he may be discharged and be compliant with medications and follow up with his PCP and Dr. Wolfe. Thank you very much for the consult. MMODL / IJN: [id number] /
[2022-01-14] MEDS ORDERED: LORazepam 2 MG/ML INJ IV STA (13:35)
[2022-01-14 14:17] VITALS: BP 154/94; PULSE 84; RESP 16; TEMP 98.4
--- NOTE | 2022-01-14 17:29 | P.DS ---
Providers Date of admission: 01/13/22 23:17 Expected date of discharge: 01/14/22 Attending physician: Ofe Luo MD Consults: 01/13/22 23:04 Consult Physician Stat Consulting Provider: Fadi Wolfe Consult Reason/Comments: Chest pain Do you want consulting provider notified?: Already Contacted Primary care physician: Jules Davis Hospital Course: Discharge Diagnosis: Chest pain, acute coronary event ruled out. Hypertensive urgency, patient instructed to monitor blood pressures closely at home Paroxysmal atrial fibrillation on anticoagulation History of MTHFR gene mutation on anticoagulation History of CAD Hyperlipidemia Hospital Course: Patient is a very pleasant 41-year-old male with a past medical history of CAD, hypertension, hyperlipidemia paroxysmal atrial fibrillation and MTHFR gene mutation on anticoagulation with Eliquis. He presented to the emergency department on 01/13/22 with a chief complaint of chest pain. Patient reports chest pain was sudden onset accompanied by diaphoresis. Patient states this pain was felt to his left anterior chest and states that his Smart watch notified him that he was also in atrial fibrillation. Upon arrival to the hospital patient underwent full evaluation. Patient was found to have hypertensive urgency with blood pressure as high as 170/96 and 201/121. EKGs were completed all revealing sinus mechanism with no significant T-wave or ST abnormalities showing no signs of acute ischemia. Troponins were trended and all less than 0.0123 draws. Patient underwent evaluation by cardiology. Patient being placed on additional antihypertensive medications amlodipine and metoprolol in addition to his daily home medication with hydrochlorothiazide and lisinopril. Cardiology recommending patient follow-up outpatient in one week with their office. Patient monitored closely, blood pressures decreasing and do wn to 154/94. Patient denies having any further chest pain, palpitations, shortness of breath, dizziness, lightheadedness, or any other complaints at this time. Patient educated on the importance of monitoring his blood pressures at home twice daily. Patient instructed to document these results in a daily journal/log to bring with him to his next doctor's appointments. Patient instructed if he again experiences hypertensive urgency with blood pressure greater than 180 he is to notify his producer director as additional adjustments may need to be made to his medication regimen. Patient medically stable for discharge at this time and to follow up with PCP and cardiology as directed. Physical examination: Patient seen and examined at bedside. Vital signs reviewed and stable. General: Nontoxic, no distress and appears stated age. Derm: Skin warm and dry, normal coloration for ethnicity. Head: Atraumatic, normocephalic and symmetric. Eyes: EOMs intact, no lid lag, and anicteric sclera Mouth: no lip lesions, mucus membranes moist Cardiovascular: regular rate and rhythm with normal S1S2, no murmur, positive posterior tibial pulses bilaterally, and cap refill < 2 seconds. Lungs: Respirations even, regular, and unlabored on room air. Lungs CTA bilaterally, no rhonchi, no rales, no wheezing, and no accessory muscle usage. Abdominal: soft, nontender to palpation, no guarding, no appreciable organomegaly Ext: ROM intact. No gross muscle atrophy, no edema, no contractures Neuro: Speech clear, face symmetrical and CN II-XII grossly intact with no noted focal neuro deficits Psych: Alert and oriented to person, place, time, and situation. Appropriate and pleasant affect. A total of 35 minutes of time were spent preparing this complex discharge summary. Patient Condition at Discharge: Stable Plan - Discharge Summary New Discharge Prescriptions: New amLODIPine [Norvasc] 5 mg PO BID 30 Days #60 tab Metoprolol Tartrate [Lopressor] 12.5 mg PO BID 30 Days #60 tab Continue Aspirin 81 mg PO DAILY chew hydroCHLOROthiazide [Hydrodiuril] 25 mg PO DAILY Atorvastatin [Lipitor] 20 mg PO DAILY dilTIAZem HCL [dilTIAZem HCL 24Hr ER (Xr)] 240 mg PO DAILY Vortioxetine Hydrobromide [Trintellix] 10 mg PO DAILY Esomeprazole Magnesium 40 mg PO DAILY hydrOXYzine HCL [Atarax] 50 mg PO TID Mirtazapine [Remeron] 15 mg PO HS PRN PRN Reason: sleep Apixaban [Eliquis] 5 mg PO BID lisinopriL 40 mg PO DAILY busPIRone HCL 15 mg PO BID Discharge Medication List Aspirin 81 mg PO DAILY chew 01/31/16 [Rx] Apixaban [Eliquis] 5 mg PO BID 01/06/22 [History] Atorvastatin [Lipitor] 20 mg PO DAILY 01/06/22 [History] Esomeprazole Magnesium 40 mg PO DAILY 01/06/22 [History] Vortioxetine Hydrobromide [Trintellix] 10 mg PO DAILY 01/06/22 [History] dilTIAZem HCL [dilTIAZem HCL 24Hr ER (Xr)] 240 mg PO DAILY 01/06/22 [History] hydroCHLOROthiazide [Hydrodiuril] 25 mg PO DAILY 01/06/22 [History] lisinopriL 40 mg PO DAILY 01/06/22 [History] Mirtazapine [Remeron] 15 mg PO HS PRN 01/13/22 [History] busPIRone HCL 15 mg PO BID 01/13/22 [History] hydrOXYzine HCL [Atarax] 50 mg PO TID 01/13/22 [History] Metoprolol Tartrate [Lopressor] 12.5 mg PO BID 30 Days #60 tab 01/14/22 [Rx] amLODIPine [Norvasc] 5 mg PO BID 30 Days #60 tab 01/14/22 [Rx] Follow up Appointment(s)/Referral(s): Fadi Wolfe DO [STAFF PHYSICIAN] - 01/24/22 3:00 pm Jules Davis [Primary Care Provider] - 1-2 days Patient Instructions/Handouts: A-fib (Atrial Fibrillation) (DC), Chronic Hypertension (DC) Activity/Diet/Wound Care/Special Instructions: Activity: As tolerated. Take breaks as needed. Diet: Heart healthy and carb consistent diet. Avoid salts, or foods with hidden salts such as canned or boxed foods and frozen dinners. Extra salt makes your heart work harder and traps the fluid in your body for longer. Special Instructions: Take all of your medications as directed and remember to keep all of your doctor's appointments and follow-up as needed. As we discussed, it is highly important for you to monitor your blood pressure twice a day every day and document these results in a daily log/journal and bring with you to your next doctor's appointment both with your PCP and producer director. It is important to follow closely with these trends therefore additional adjustments/changes can be made to your medication regimen to provide optimal control. Thank you for allowing us to participate in your care, it was truly a pleasure having you for our patient!!! Discharge Disposition: HOME SELF-CARE
== END 2022-01-14 15:31 | disposition home or self-care (01) ==
LOC: EC 19:37 → 6NMEDSUR 23:17
PROVIDERS: ADMIT Internal Medicine; ATTEND Internal Medicine
DX: R07.89 Other chest pain (principal); I16.0 Hypertensive urgency; I48.0 Paroxysmal atrial fibrillation; I10 Essential (primary) hypertension; E78.5 Hyperlipidemia, unspecified; I25.10 Atherosclerotic heart disease of native coronary artery without angina pectoris; I25.2 Old myocardial infarction; E72.12 Methylenetetrahydrofolate reductase deficiency; K21.9 Gastro-esophageal reflux disease without esophagitis; H91.90 Unspecified hearing loss, unspecified ear; M51.36 Other intervertebral disc degeneration, lumbar region; F32.A Depression, unspecified; F41.9 Anxiety disorder, unspecified; Z79.01 Long term (current) use of anticoagulants; Z79.82 Long term (current) use of aspirin; Z79.899 Other long term (current) drug therapy; Z86.718 Personal history of other venous thrombosis and embolism; Z96.652 Presence of left artificial knee joint; Z96.692 Finger-joint replacement of left hand; Z98.890 Other specified postprocedural states; Z82.49 Family history of ischemic heart disease and other diseases of the circulatory system; Z80.8 Family history of malignant neoplasm of other organs or systems; Z81.8 Family history of other mental and behavioral disorders
CPT/HCPCS: 96376; 96372; 96374; 99285; 36415; 93005; 80053; 80048; 84443; 83735 ×2; 84484 ×2; 85025 ×2; 85610; 85730; 71046; G0378 ×2; J2270 ×2; J1650

== ENCOUNTER → 2022-02-28 | Outpatient (CLI) | payer OTHER ==
[2022-02-28 10:27] LABS: HCT 48.2 % (39.6-50.0); HGB 15.9 g/dL (13.0-17.0); MCH 27.7 pg (27.0-32.0); MCV 84.1 fL (80.0-97.0); Mean Platelet Volume 8.5 fL (9.5-12.2); NRBC Per 100 WBC 0 /100 WBCS (0.0-0.0); Platelet Count 251 X 10*3/uL (140-440); RBC 5.73 X 10*6/uL (4.40-5.60); RDW 13.4 % (11.5-14.5); WBC 7.28 X 10*3/uL (4.50-10.00)
[2022-02-28 10:37] LABS: African American GFR (CKD) 120.8 (60.0-200.0); Anion Gap 8.2 mmol/L (10.00-18.00); Carbon Dioxide 30.7 mmol/L (20.0-27.5); Non-African American GFR(CKD) 104.2 (60.0-200.0); Potassium 4.5 mmol/L (3.5-5.5)
== END | disposition home or self-care (01) ==
LOC: LABPAT 07:35
PROVIDERS: ATTEND Internal Medicine Clinical Cardiac Electrophysiology
DX: Z01.812 Encounter for preprocedural laboratory examination (principal); I48.0 Paroxysmal atrial fibrillation
CPT/HCPCS: 36415; 80051; 82565; 84520; 85027

== ENCOUNTER 2022-03-20 10:52 | Day surgery (SDC) | payer OTHER ==
[2022-03-19 10:34] VITALS: BMI 46.2
[2022-03-20] MEDS: SODIUM CHLORIDE 0.9% 1,000 ML IV SCH ×2 (11:15→22:54)
[2022-03-20] MEDS ORDERED: diphenhydrAMINE 50 MG/ML 1 ML VIAL ONE (11:59)
[2022-03-20] MEDS ORDERED: ePHEDrine 50 MG/ML 1 ML VIAL ONE (11:59)
[2022-03-20] MEDS ORDERED: ONDANSETRON 4 MG/2 ML VIAL ONE (11:59)
[2022-03-20] MEDS ORDERED: fentaNYL (PF) 50 MCG/ML 2 ML AMP ONE (11:59)
[2022-03-20] MEDS ORDERED: PHENYLEPHRINE-0.9% NACL SYG 1,000 MCG/10 ML SYRINGE ONE (11:59)
[2022-03-20] MEDS ORDERED: MIDAZOLAM 2 MG/2 ML VIAL ONE (11:59)
[2022-03-20] MEDS ORDERED: SUCCINYLCHOLINE CHLORIDE VIAL 200 MG/10 ML VIAL IV ONE (11:59)
[2022-03-20] MEDS ORDERED: PROPOFOL 10 MG/ML 20 ML VIAL IV ONE (11:59)
[2022-03-20] MEDS ORDERED: HEPARIN SODIUM,PORCINE 10,000 UNIT/ML 1 ML VIAL ONE (11:59)
[2022-03-20] MEDS ORDERED: ISOPROTERENOL 250 MCG/1.25 ML SYR IV ONE (11:59)
[2022-03-20] MEDS ORDERED: LIDOCAINE 2% INJ 20 MG/ML (2 ML VIAL) ONE (11:59)
[2022-03-20] MEDS ORDERED: HYDROmorphone (PF) 1 MG/ML ONE (11:59)
[2022-03-20] MEDS ORDERED: HEPARIN SOD,PORK IN 0.45% NACL 25,000 UNIT in 0.45% NACL 1 250ML.BAG IV ONE ×2 (12:24)
[2022-03-20] MEDS ORDERED: LIDOCAINE 1% INJ 10MG/ML (30 ML VIAL-PF) SQ ONE (12:55)
[2022-03-20] MEDS ORDERED: IOPAMIDOL-370 100ML BTL INJ ONE (14:40)
[2022-03-20] MEDS ORDERED: SODIUM CHLORIDE 0.9% 500 ML 500 ML IV ONE (14:51)
[2022-03-20] MEDS ORDERED: MIRTAZAPINE 15 MG TAB PO PRN (15:06)
[2022-03-20] MEDS ORDERED: ACETAMINOPHEN IV (For NPO) 1,000 MG in EMPTY BAG 1 BAG IVPB ONE (15:08)
[2022-03-20] MEDS ORDERED: ACETAMINOPHEN TAB 325 MG TAB PO PRN (15:08)
[2022-03-20] MEDS ORDERED: HYDROmorphone 0.5 MG/0.5 ML SYRINGE IVP ONE (16:15)
[2022-03-20] MEDS ORDERED: ACETAMINOPHEN IV (For NPO) 1,000 MG/100 ML VIAL IVPB ONE (16:18)
--- NOTE | 2022-03-20 16:44 | P.HPCAR ---
History of Present Illness This is Dr. Zhang dictating an H/P on this patient The patient was interviewed and examined IMPRESSION / ASSESSMENT: Paroxysmal atrial fibrillation with RVR, symptomatic with shortness of breath and dizziness Hypertension Obesity,morbid Obstructive sleep apnea using CPAP mask History of DVT Normal coronary arteries by Deepti catheterization Regular social alcohol use Patient denies any chest discomfort dizziness lightheadedness undue shortness of breath orthopnea PND in the last one week No fever chills PLAN: Proceed with PVI for management of atrial fibrillation Continue anticoagulation HPI Patient is a history of paroxysmal atrial fibrillation RVR associated dizziness shortness of breath He also has hypertension which, better controlled No orthopnea PND no chest discomfort ROS: No fever chills or rigors, no cough, phlegm or expectoration, no nausea, vomiting or diarrhea, no hematuria, dysuria, no musculoskeletal complaints, no strokes or seizures, no skin lesions. EXAMINATION: Pulse rate in the 90s, afebrile Normal heart sounds regular Normal breath sounds no rhonchi no crackles Extremities warm no edema line no JVD REVIEW OF LABS, ECG & MEDICAL DATA Coronavirus PCR undetectable Physical Exam Vitals: Vital Signs Temp Pulse Pulse Resp BP Pulse Ox 03/20/22 16:00 93 16 141/70 96 03/20/22 15:45 92 16 143/73 96 03/20/22 15:30 94 16 138/66 96 03/20/22 15:17 98.4 F 93 16 147/82 97 03/20/22 11:13 98.5 F 69 18 120/74 96 Intake and Output 03/20/22 03/20/22 03/20/22 06:59 14:59 22:59 Intake Total 989 0 Balance 989 0 Intake: IV 989 0 Other: Weight 163.7 kg Past Medical History Past Medical History: Atrial Fibrillation, Blood Disorder, GERD/Reflux, Hearing Disorder / Deafness, Hypertension, Myocardial Infarction ([place]) Additional Past Medical History / Comment(s): DVT X 3- LAST TIME 2012- LT LEG, LUMBAR DDD- . HAS HX MTHFR GENE MUTATION-POSITIVE FOR HETEROZYGOUS PER DR. FRANCISCO'S OFFICE Last Myocardial Infarction Date:: 09/2021 History of Any Multi-Drug Resistant Organisms: None Reported Past Surgical History: Heart Catheterization, Joint Replacement Additional Past Surgical History / Comment(s): LEFT KNEE REPLACEMENT AND LT INDEX JOINT REPLACEMENT, PAIN CLINIC PROCEDURES, COLONOSCOPY Past Anesthesia/Blood Transfusion Reactions: Previous Problems w/ Anesthesia, Family History of Problems w/ Anesthesia, Motion Sickness Additional Past Anesthesia/Blood Transfusion Reaction / Comment(s): HARD TO PUT TO SLEEP-(pt and father) Past Psychological History: Depression Smoking Status: Never smoker Past Alcohol Use History: Occasional Additional Past Alcohol Use History / Comment(s): Patient is a lifelong nons moker. He states he smokes marijuana occasionally. He drinks alcohol rarely. He has been off oxycodone since April 2015. Past Drug Use History: None Reported Additional Drug Use History / Comment(s): RARE MARIJUANA USE - Past Family History Father Family Medical History: Coronary Artery Disease (CAD) Additional Family Medical History / Comment(s): Father is age 69 with history of coronary artery disease with previous myocardial infarction and defibrillator implantation. Brother(s) Family Medical History: No Reported History Additional Family Medical History / Comment(s): Patient has 1 brother that is healthy and 1 sister with history of skin cancer. Patient has 3 daughters that are age 4, 5, 11. Sister(s) Family Medical History: Cancer Additional Family Medical History / Comment(s): Skin cancer. Mother History Unknown: Yes Family Medical History: No Reported History Additional Family Medical History / Comment(s): Mother is 67 years of age and has mental health issues. Physical Examination Vital Signs Temp Pulse Pulse Resp BP Pulse Ox 03/20/22 16:00 93 16 141/70 96 03/20/22 15:45 92 16 143/73 96 03/20/22 15:30 94 16 138/66 96 03/20/22 15:17 98.4 F 93 16 147/82 97 03/20/22 11:13 98.5 F 69 18 120/74 96 Intake and Output 03/20/22 03/20/22 03/20/22 06:59 14:59 22:59 Intake Total 989 0 Balance 989 0 Intake: IV 989 0 Other: Weight 163.7 kg Results Current Medications Generic Name Dose Route Start Last Admin Trade Name Freq PRN Reason Stop Dose Admin Acetaminophen 650 mg 03/20/22 15:08 Acetaminophen Tab 325 Mg Tab PO 04/19/22 15:09 Q6HR PRN Mild Pain Amlodipine Besylate 5 mg 03/20/22 21:00 Amlodipine 5 Mg Tab PO 04/19/22 21:01 BID [facility] Apixaban 5 mg 03/20/22 21:00 Apixaban 5 Mg Tab PO 04/19/22 21:01 BID [facility] Protocol Aspirin 81 mg 03/21/22 09:00 Aspirin 81 Mg PO 04/20/22 09:01 DAILY [facility] Atorvastatin Calcium 20 mg 03/21/22 09:00 Atorvastatin 20 Mg Tab PO 04/20/22 09:01 DAILY [facility] Buspirone HCl 15 mg 03/20/22 21:00 Buspirone Hcl 5 Mg Tab PO 04/19/22 21:01 BID [facility] Diltiazem HCl 240 mg 03/21/22 09:00 Diltiazem Cd 240 Mg Cap.Er.24h PO 04/20/22 09:01 DAILY [facility] Hydrochlorothiazide 25 mg 03/21/22 09:00 Hydrochlorothiazide 25 Mg Tab PO 04/20/22 09:01 DAILY [facility] Lactated Ringer's 1,000 mls @ 20 mls/hr 03/20/22 06:06 Lactated Ringers IV 04/19/22 06:07 .Q24H [facility] Sodium Chloride 1,000 mls @ 20 mls/hr 03/20/22 06:06 03/20/22 11:15 Saline 0.9% IV 04/19/22 06:07 970 mls .Q24H [facility] Administration Lisinopril 40 mg 03/21/22 09:00 Lisinopril 20 Mg Tab PO 04/20/22 09:01 DAILY [facility] Mirtazapine 15 mg 03/20/22 15:06 Mirtazapine 15 Mg Tab PO 04/19/22 15:07 HS PRN sleep Pantoprazole Sodium 40 mg 03/21/22 07:30 Pantoprazole 40 Mg Tablet PO AC-BRKFST [facility] Sodium Chloride 12 ml 03/20/22 15:08 Sodium Chloride 0.9% Flush 10 Ml Syringe IV 04/19/22 15:09 Q12HR PRN Line Flush Vortioxetine 20 mg 03/21/22 09:00 Vortioxetine Hydrobromide 20 Mg Tablet PO 04/20/22 09:01 DAILY [facility] Intake and Output 03/20/22 03/20/22 03/20/22 06:59 14:59 22:59 Intake Total 989 0 Balance 989 0 Intake: IV 989 0 Other: Weight 163.7 kg Patient Weight 03/21/22 06:59 Weight 163.7 kg
--- NOTE | 2022-03-20 16:55 | P.HPCAR ---
History of Present Illness PROCEDURE A. fib ablation, PVI, left septal ablation, left amanda ablation DIAGNOSIS Paroxysmal Atrial fibrillation, symptomatic RESULT No left atrial appendage mass seen on intracardiac echo: Normal LV function Successful A. fib ablation/pulmonary vein isolation of all veins using cryo- ablation Complete entrance block in all 4 veins confirmed Ablation of the left amanda and ablation of the left septum No evidence for phrenic nerve injury Esophageal deflection YES , right-sided PROCEDURE DETAILS Patient was brought to the EP lab in a fasting state after obtaining written informed consent. Procedure performed under general anesthesia Esophagus was intubated. Esophageal temperature monitoring with circa catheter. Esophageal deflection with an endoscope to avoid hypothermia of the esophagus. After initial muscle relaxant use, muscle relaxants were not given thereafter in order to assess phrenic nerve during procedure. Patient prepped and draped as per protocol Cryo ablation-set up with standard preparation of the cryoablation tools done. Femoral Venous access obtained on the right and left groins and sheaths placed Diagnostic catheters for the high right atrium, phrenic nerve stimulation and pacing, His bundle, coronary sinus placed Intracardiac echo catheter placed. Long sheath placed in the right atrium Left and right transseptal catheterization performed under intracardiac echo guidance. Intravenous heparin with aCT above 300 Later, catheter positioning and balloon positioning in the left atrium and pulmonary veins, under intracardiac echo guidance Diagnostic EP study with coronary sinus pacing and recording Baseline measurements: Sinus cycle length 868 ms, NJ interval 114 ms, QRS 180 ms and QT 418 ms HV interval 35 ms Sinus recovery times at 600, 504 100 ms were 785, 801 and 480 ms AV node Wenckebach block to 50 ms Slow pathway conduction 270 ms No inducible SVT on Isuprel and straight pacing Transseptal catheterization performed RA pressure 23/17/20 LA pressure 20/7/14 Transseptal catheterization performed with standard sheath. The cryoablation sheath was then placed with an over the wire exchange without any acute complications. The cryoablation balloon was placed in the office of each pulmonary vein and all 4 pulmonary veins were isolated. IV dye was injected to confirm occlusion. Goal: achieve complete occlusion of the pulmonary vein, achieve -30 degrees C at 30 seconds and achieve -40 degrees C at 60 seconds and a time to effect of less than 60 seconds. If not, the balloon was repositioned to obtain this result After completion of Cryoblation with durations from 180-240 seconds, entrance block was confirmed with the Attain circular catheter in a roving fashion around the antrum of the pulmonary veins Phrenic nerve pacing was performed from the SVC, right innominate vein area and diaphragm voltage was monitored. Diaphragmatic contractions were also monitored manually for strength of contraction. At the end of the procedure the Achieve catheter was once again used to check for entrance block Phrenic nerve stimulation was performed to confirm diaphragmatic stimulation the end of the procedure Cine fluoroscopy was performed at the very end of the procedure to confirm movement of both diaphragms with inspiration and expiration At the end of the procedure the patient was extubated Venous sheaths were removed and hemostasis assured with a closure device PROCEDURES PERFORMED Diagnostic EP study CS pacing and recording Left and right transseptal catheterization Catheter the mapping of the tachycardia Intracardiac echocardiography Pulmonary vein isolation with transseptal and comprehensive EPS, [id number] Drug infusion, +[id number] Linear ablation, septum left atrium, +[id number] Ablation of the left amanda in between the left superior and left inferior pulmonary veins, +[id number] Physical Exam Vitals: Vital Signs Temp Pulse Pulse Resp BP Pulse Ox 03/20/22 16:00 93 16 141/70 96 03/20/22 15:45 92 16 143/73 96 03/20/22 15:30 94 16 138/66 96 03/20/22 15:17 98.4 F 93 16 147/82 97 03/20/22 11:13 98.5 F 69 18 120/74 96 Intake and Output 03/20/22 03/20/22 03/20/22 06:59 14:59 22:59 Intake Total 989 0 Balance 989 0 Intake: IV 989 0 Other: Weight 163.7 kg Past Medical History Past Medical History: Atrial Fibrillation, Blood Disorder, GERD/Reflux, Hearing Disorder / Deafness, Hypertension, Myocardial Infarction ([place]) Additional Past Medical History / Comment(s): DVT X 3- LAST TIME 2013- LT LEG, LUMBAR DDD- . HAS HX MTHFR GENE MUTATION-POSITIVE FOR HETEROZYGOUS PER DR. FRANCISCO'S OFFICE Last Myocardial Infarction Date:: 09/2021 History of Any Multi-Drug Resistant Organisms: None Reported Past Surgical History: Heart Catheterization, Joint Replacement Additional Past Surgical History / Comment(s): LEFT KNEE REPLACEMENT AND LT INDEX JOINT REPLACEMENT, PAIN CLINIC PROCEDURES, COLONOSCOPY Past Anesthesia/Blood Transfusion Reactions: Previous Problems w/ Anesthesia, Family History of Problems w/ Anesthesia, Motion Sickness Additional Past Anesthesia/Blood Transfusion Reaction / Comment(s): HARD TO PUT TO SLEEP-(pt and father) Past Psychological History: Depression Smoking Status: Never smoker Past Alcohol Use History: Occasional Additional Past Alcohol Use History / Comment(s): Patient is a lifelong nonsmoker. He states he smokes marijuana occasionally. He drinks alcohol rarely. He has been off oxycodone since April 2015. Past Drug Use History: None Reported Additional Drug Use History / Comment(s): RARE MARIJUANA USE - Past Family History Father Family Medical History: Coronary Artery Disease (CAD) Additional Family Medical History / Comment(s): Father is age 69 with history of coronary artery disease with previous myocardial infarction and defibrillator implantation. Brother(s) Family Medical History: No Reported History Additional Family Medical History / Comment(s): Patient has 1 brother that is healthy and 1 sister with history of skin cancer. Patient has 3 daughters that are age 4, 5, 11. Sister(s) Family Medical History: Cancer Additional Family Medical History / Comment(s): Skin cancer. Mother History Unknown: Yes Family Medical History: No Reported History Additional Family Medical History / Comment(s): Mother is 67 years of age and has mental health issues. Physical Examination Vital Signs Temp Pulse Pulse Resp BP Pulse Ox 03/20/22 16:00 93 16 141/70 96 03/20/22 15:45 92 16 143/73 96 03/20/22 15:30 94 16 138/66 96 03/20/22 15:17 98.4 F 93 16 147/82 97 03/20/22 11:13 98.5 F 69 18 120/74 96 Intake and Output 03/20/22 03/20/22 03/20/22 06:59 14:59 22:59 Intake Total 989 0 Balance 989 0 Intake: IV 989 0 Other: Weight 163.7 kg Results Current Medications Generic Name Dose Route Start Last Admin Trade Name Freq PRN Reason Stop Dose Admin Acetaminophen 650 mg 03/20/22 15:08 Acetaminophen Tab 325 Mg Tab PO 04/19/22 15:09 Q6HR PRN Mild Pain Amlodipine Besylate 5 mg 03/20/22 21:00 Amlodipine 5 Mg Tab PO 04/19/22 21:01 BID [facility] Apixaban 5 mg 03/20/22 21:00 Apixaban 5 Mg Tab PO 04/19/22 21:01 BID [facility] Protocol Aspirin 81 mg 03/21/22 09:00 Aspirin 81 Mg PO 04/20/22 09:01 DAILY [facility] Atorvastatin Calcium 20 mg 03/21/22 09:00 Atorvastatin 20 Mg Tab PO 04/20/22 09:01 DAILY [facility] Buspirone HCl 15 mg 03/20/22 21:00 Buspirone Hcl 5 Mg Tab PO 04/19/22 21:01 BID [facility] Diltiazem HCl 240 mg 03/21/22 09:00 Diltiazem Cd 240 Mg Cap.Er.24h PO 04/20/22 09:01 DAILY [facility] Hydrochlorothiazide 25 mg 03/21/22 09:00 Hydrochlorothiazide 25 Mg Tab PO 04/20/22 09:01 DAILY [facility] Lactated Ringer's 1,000 mls @ 20 mls/hr 03/20/22 06:06 Lactated Ringers IV 04/19/22 06:07 .Q24H [facility] Sodium Chloride 1,000 mls @ 20 mls/hr 03/20/22 06:06 03/20/22 11:15 Saline 0.9% IV 04/19/22 06:07 970 mls .Q24H [facility] Administration Lisinopril 40 mg 03/21/22 09:00 Lisinopril 20 Mg Tab PO 04/20/22 09:01 DAILY [facility] Mirtazapine 15 mg 03/20/22 15:06 Mirtazapine 15 Mg Tab PO 04/19/22 15:07 HS PRN sleep Pantoprazole Sodium 40 mg 03/21/22 07:30 Pantoprazole 40 Mg Tablet PO AC-BRKFST [facility] Sodium Chloride 12 ml 03/20/22 15:08 Sodium Chloride 0.9% Flush 10 Ml Syringe IV 04/19/22 15:09 Q12HR PRN Line Flush Vortioxetine 20 mg 03/21/22 09:00 Vortioxetine Hydrobromide 20 Mg Tablet PO 04/20/22 09:01 DAILY [facility] Intake and Output 03/20/22 03/20/22 03/20/22 06:59 14:59 22:59 Intake Total 989 0 Balance 989 0 Intake: IV 989 0 Other: Weight 163.7 kg Patient Weight 03/21/22 06:59 Weight 163.7 kg
[2022-03-20] MEDS: LACTATED RINGERS 1,000 ML IV SCH ×2 (17:18→22:54)
[2022-03-20] MEDS ORDERED: HYDROcodone/APAP 10-325MG 1 EACH TAB PO PRN (18:46)
[2022-03-20] MEDS: APIXABAN 5 MG TAB PO SCH (20:42)
[2022-03-20] MEDS: amLODIPine 5 MG TAB PO SCH (20:42)
[2022-03-20] MEDS: busPIRone HCl 5 MG TAB PO SCH (20:42)
[2022-03-21 06:12] VITALS: PULSE 95
[2022-03-21 07:05] VITALS: BP 106/70; RESP 16; TEMP 97.5
[2022-03-21] MEDS ORDERED: PANTOPRAZOLE 40 MG TABLET PO SCH (07:30)
[2022-03-21] MEDS: busPIRone HCl 5 MG TAB PO SCH (08:15)
[2022-03-21] MEDS: amLODIPine 5 MG TAB PO SCH (08:16)
[2022-03-21] MEDS: APIXABAN 5 MG TAB PO SCH (08:16)
[2022-03-21] MEDS ORDERED: hydroCHLOROthiazide 25 MG TAB PO SCH (09:00)
[2022-03-21] MEDS ORDERED: ATORVASTATIN 20 MG TAB PO SCH (09:00)
[2022-03-21] MEDS ORDERED: lisinopriL 20 MG TAB PO SCH (09:00)
[2022-03-21] MEDS ORDERED: VORTIOXETINE HYDROBROMIDE 20 MG TABLET PO SCH (09:00)
[2022-03-21] MEDS ORDERED: ASPIRIN 81 MG PO SCH (09:00)
[2022-03-21] MEDS ORDERED: DILTIAZEM CD 240 MG CAP.ER.24H PO SCH (09:00)
--- NOTE | 2022-03-21 13:07 | P.PCN ---
Preoperative Diagnosis: Patient is doing well today His groin sites are tender but there is absolutely no hematoma minimal bruising He simply tender to touch on both sides He complained of some sore throat and mild chest discomfort but bruits extremely comfortable No pleuritic discomfort Ablating around in the room Vitals are stable Blood pressure 116/68 mmHg respiratory rate 16 afebrile Breath sounds are clear no rhonchi no crackles Normal heart sounds normal S1 normal S2 Impression Pulmonary vein isolation/cryoablation of the pulmonary veins No inducible atrial fibrillation thereafter on and off Isuprel Plan Stop metoprolol Continue current medications
== END 2022-03-21 13:41 | disposition home or self-care (01) ==
LOC: CATHEP 10:52 → 6NMEDSUR 15:01 → CATHEP 03-21 13:41
PROVIDERS: ATTEND Internal Medicine Clinical Cardiac Electrophysiology
DX: I48.0 Paroxysmal atrial fibrillation (principal); I10 Essential (primary) hypertension; G47.33 Obstructive sleep apnea (adult) (pediatric); K21.9 Gastro-esophageal reflux disease without esophagitis; I25.2 Old myocardial infarction; H91.90 Unspecified hearing loss, unspecified ear; F32.A Depression, unspecified; E66.01 Morbid (severe) obesity due to excess calories; Z20.822 Contact with and (suspected) exposure to COVID-19; Z68.42 Body mass index [BMI] 45.0-49.9, adult; Z86.718 Personal history of other venous thrombosis and embolism; Z79.899 Other long term (current) drug therapy; Z79.01 Long term (current) use of anticoagulants; Z96.652 Presence of left artificial knee joint; Z96.692 Finger-joint replacement of left hand; Z82.49 Family history of ischemic heart disease and other diseases of the circulatory system; Z80.8 Family history of malignant neoplasm of other organs or systems
CPT/HCPCS: 93623; 93656; 87635; C1894 ×2; C1769 ×4; C1760; C1730 ×2; C1759; C1893; C1733; C1766; J2001; J0131; J1170; Q9967; J1644

== ENCOUNTER → 2022-04-11 | Outpatient (CLI) | payer OTHER ==
[2022-04-11 09:17] LABS: Partial Thromboplastin Time 25.7 sec (22.0-30.0); Prothrombin Time 10.6 sec (9.0-12.0)
[2022-04-11 14:21] LABS: HCT 49.6 % (39.6-50.0); MCH 27.7 pg (27.0-32.0); MCHC 32.3 g/dL (32.0-37.0); Mean Platelet Volume 8.9 fL (9.5-12.2); NRBC Per 100 WBC 0 /100 WBCS (0.0-0.0); Platelet Count 312 X 10*3/uL (140-440); RBC 5.77 X 10*6/uL (4.40-5.60); RDW 13.2 % (11.5-14.5); WBC 7.27 X 10*3/uL (4.50-10.00)
[2022-04-11 15:40] LABS: % Iron Saturation 25.22 (15.00-50.00); ALT 61 U/L (10-49); AST 27 U/L (14-35); African American GFR (CKD) 120.8 (60.0-200.0); Albumin 4.5 g/dL (3.8-4.9); Albumin/Globulin Ratio 1.73 (1.60-3.17); Alkaline Phosphatase 90 U/L (41-126); BUN/Creat Ratio 14.56 Ratio (12.00-20.00); Blood Urea Nitrogen 13.1 mg/dL (9.0-27.0); Calcium 9.6 mg/dL (8.7-10.3); Carbon Dioxide 23.4 mmol/L (20.0-27.5); Chloride 98 mmol/L (96-109); Globulin 2.6 g/dL (1.6-3.3); Glucose 144 mg/dL (70-110); Iron 96 ug/dL (65-175); Magnesium 2.1 mg/dL (1.5-2.4); Non-African American GFR(CKD) 104.2 (60.0-200.0); Phosphorus 2.3 mg/dL (2.4-5.1); Potassium 3.7 mmol/L (3.5-5.5); Sodium 136 mmol/L (135-145); Total Iron Binding Capacity 382 ug/dL (228-460); Total Protein 7.1 g/dL (6.2-8.2)
[2022-04-11 15:45] LABS: Chol/HDL Ratio 4.31 Ratio; LDL Cholesterol,Calculated 105.8 mg/dL (0.0-131.0); Prealbumin 33.7 mg/dL (18.0-42.0)
== END | disposition home or self-care (01) ==
LOC: LABWHC1 07:48
PROVIDERS: ATTEND Surgery Plastic and Reconstructive Surgery
DX: E89.1 Postprocedural hypoinsulinemia (principal); E50.8 Other manifestations of vitamin A deficiency; D50.9 Iron deficiency anemia, unspecified; E44.0 Moderate protein-calorie malnutrition; E45 Retarded development following protein-calorie malnutrition; E55.9 Vitamin D deficiency, unspecified; K74.1 Hepatic sclerosis; N19 Unspecified kidney failure; T56.894A Toxic effect of other metals, undetermined, initial encounter; K50.90 Crohn's disease, unspecified, without complications; Z71.51 Drug abuse counseling and surveillance of drug abuser
CPT/HCPCS: 84255; 84134; 84425; 80061; 80053; 82607; 82728; 82525; 82746; 83540; 83550; 83735; 84100; 84443; 84590; 84630; 85027; 85610; 85730; 82306; 83970; 83036; 80307; 36415; G0480; G0482; 80323

== ENCOUNTER 2022-05-05 07:07 | Day surgery (SDC) | payer OTHER ==
[2022-05-01 12:32] VITALS: BMI 43.7
[2022-05-05 07:35] VITALS: TEMP 97.9
--- NOTE | 2022-05-05 08:00 | P.GSHP ---
History of Present Illness H&P Date: 05/05/22 CHIEF COMPLAINT: GERD HISTORY OF PRESENT ILLNESS: The patient is a 42-year-old male who presents reports gastroesophageal reflux disease. Upper endoscopy was offered for further evaluation and management. PAST MEDICAL HISTORY: Please see list. PAST SURGICAL HISTORY: Please see list. MEDICATIONS: Please see list. ALLERGIES: Please see list. SOCIAL HISTORY: No illicit drug use FAMILY HISTORY: No reports of Crohn disease or ulcerative colitis. REVIEW OF ORGAN SYSTEMS: CONSTITUTIONAL: No reports of fevers or chills. GI: Denies any blood in stools or constipation. PHYSICAL EXAM: VITAL SIGNS: Stable GENERAL: Well-developed and pleasant in no acute distress. HEENT: No scleral icterus. Extraocular movements grossly intact. Moist buccal mucosa. NECK: Supple without lymphadenopathy. CHEST: Unlabored respirations. Equal bilateral excursions. CARDIOVASCULAR: Regular rate and rhythm. Distal 2+ pulses. ABDOMEN: Soft, nondistended. MUSCULOSKELETAL: No clubbing, cyanosis, or edema. ASSESSMENT: 1. Gastroesophageal reflux disease PLAN: 1. Recommend proceeding with an upper endoscopy Past Medical History Past Medical History: Atrial Fibrillation, Blood Disorder, Deep Vein Thrombosis (DVT), GERD/Reflux, Hearing Disorder / Deafness, Hypertension, Myocardial Infarction ([place]) Additional Past Medical History / Comment(s): DVT X 3- LAST TIME 2013- LT LEG, LUMBAR DDD- . HAS HX MTHFR GENE MUTATION-POSITIVE FOR HETEROZYGOUS PER DR. FRANCISCO'S OFFICE Last Myocardial Infarction Date:: 09/2021 History of Any Multi-Drug Resistant Organisms: None Reported Past Surgical History: Cardiac Ablation, Heart Catheterization, Joint Replacement Additional Past Surgical History / Comment(s): LEFT KNEE REPLACEMENT, LT INDEX JOINT REPLACEMENT, PAIN CLINIC PROCEDURES, COLONOSCOPY Past Anesthesia/Blood Transfusion Reactions: Previous Problems w/ Anesthesia, Family History of Problems w/ Anesthesia, Motion Sickness Additional Past Anesthesia/Blood Transfusion Reaction / Comment(s): HARD TO PUT TO SLEEP-(pt and father) Smoking Status: Never smoker - Past Family History Father Family Medical History: Coronary Artery Disease (CAD) Additional Family Medical History / Comment(s): Father is age 69 with history of coronary artery disease with previous myocardial infarction and defibrillator implantation. Brother(s) Family Medical History: No Reported History Additional Family Medical History / Comment(s): Patient has 1 brother that is healthy and 1 sister with history of skin cancer. Patient has 3 daughters that are age 4, 5, 11. Sister(s) Family Medical History: Cancer Additional Family Medical History / Comment(s): Skin cancer. Mother History Unknown: Yes Family Medical History: No Reported History Additional Family Medical History / Comment(s): Mother is 67 years of age and has mental health issues. Medications and Allergies Home Medications Medication Instructions Recorded Confirmed Type Aspirin 81 mg PO DAILY chew 01/31/16 05/05/22 Rx Apixaban [Eliquis] 5 mg PO BID 01/06/22 05/05/22 History Atorvastatin [Lipitor] 20 mg PO DAILY 01/06/22 05/05/22 History Esomeprazole Magnesium 40 mg PO DAILY 01/06/22 05/05/22 History Vortioxetine Hydrobromide 20 mg PO DAILY 01/06/22 05/05/22 History [Trintellix] dilTIAZem HCL [dilTIAZem HCL 24Hr 240 mg PO DAILY 01/06/22 05/05/22 History ER (Xr)] hydroCHLOROthiazide [Hydrodiuril] 25 mg PO DAILY 01/06/22 05/05/22 History lisinopriL 40 mg PO DAILY 01/06/22 05/05/22 History Mirtazapine [Remeron] 15 mg PO HS PRN 01/13/22 05/05/22 History busPIRone HCL 15 mg PO BID 01/13/22 05/05/22 History hydrOXYzine HCL [Atarax] 50 mg PO TID 01/13/22 05/05/22 History Metoprolol Tartrate [Lopressor] 12.5 mg PO BID 30 Days #60 tab 01/14/22 05/05/22 Rx amLODIPine [Norvasc] 5 mg PO BID 30 Days #60 tab 01/14/22 05/05/22 Rx Allergies Allergy/AdvReac Type Severity Reaction Status Date / Time No Known Allergies Allergy Verified 05/05/22 07:29 Surgical - Exam Vital Signs Temp Pulse Resp BP Pulse Ox 97.9 F 101 H 18 136/83 97 05/05/22 07:27 05/05/22 07:27 05/05/22 07:27 05/05/22 07:27 05/05/22 07:27
[2022-05-05] MEDS ORDERED: PROPOFOL 10 MG/ML 20 ML VIAL IV ONE (08:02)
[2022-05-05] MEDS ORDERED: LIDOCAINE 2% INJ 20 MG/ML (2 ML VIAL) ONE (08:02)
--- NOTE | 2022-05-05 08:29 | P.PCN ---
Date of Procedure: 05/05/22 Description of Procedure: PREOPERATIVE DIAGNOSIS: Gastroesophageal reflux disease. Morbid obesity. POSTOPERATIVE DIAGNOSIS: Gastroesophageal reflux disease. Morbid obesity. Gastritis. OPERATION: Esophagogastroduodenoscopy with biopsies along antrum. SURGEON: Lo Sun MD ANESTHESIA: MAC. INDICATIONS: The patient is a 42-year-old male who presents with reflux disease. Benefits and risks of the procedure were described. Informed consent was obtained. DESCRIPTION: The patient was brought into the endoscopy suite and laid in the left lateral decubitus position. An Olympus gastroscope was passed along the posterior oropharynx down to the distal esophagus where the squamocolumnar junction was encountered at 43 cm from the incisors. The stomach was entered and no bile reflux was found. Additional findings are listed below. Biopsies with cold forceps were obtained of the antrum. The first through third portion of the duodenum was examined. Retroflexion of the scope confirmed Hill grade 2 lower esophageal valve. The squamocolumnar junction demonstrated LA grade A erosive esophagitis. The stomach was desufflated. The patient tolerated the procedure well. FINDINGS: Squamocolumnar junction 43 cm from the incisors. Diaphragmatic hiatus at 43 cm. Hill grade 2 lower esophageal valve. LA grade A erosive esophagitis. No active duodenitis. Chronic gastritis RECOMMENDATIONS: Upper endoscopy as needed. Plan - Discharge Summary New Discharge Prescriptions: Continue Aspirin 81 mg PO DAILY chew hydroCHLOROthiazide [Hydrodiuril] 25 mg PO DAILY Atorvastatin [Lipitor] 20 mg PO DAILY dilTIAZem HCL [dilTIAZem HCL 24Hr ER (Xr)] 240 mg PO DAILY Vortioxetine Hydrobromide [Trintellix] 20 mg PO DAILY Esomeprazole Magnesium 40 mg PO DAILY hydrOXYzine HCL [Atarax] 50 mg PO TID Mirtazapine [Remeron] 15 mg PO HS PRN PRN Reason: sleep amLODIPine [Norvasc] 5 mg PO BID 30 Days #60 tab Apixaban [Eliquis] 5 mg PO BID lisinopriL 40 mg PO DAILY busPIRone HCL 15 mg PO BID Metoprolol Tartrate [Lopressor] 12.5 mg PO BID 30 Days #60 tab Discharge Medication List Aspirin 81 mg PO DAILY chew 01/31/16 [Rx] Apixaban [Eliquis] 5 mg PO BID 01/06/22 [History] Atorvastatin [Lipitor] 20 mg PO DAILY 01/06/22 [History] Esomeprazole Magnesium 40 mg PO DAILY 01/06/22 [History] Vortioxetine Hydrobromide [Trintellix] 20 mg PO DAILY 01/06/22 [History] dilTIAZem HCL [dilTIAZem HCL 24Hr ER (Xr)] 240 mg PO DAILY 01/06/22 [History] hydroCHLOROthiazide [Hydrodiuril] 25 mg PO DAILY 01/06/22 [History] lisinopriL 40 mg PO DAILY 01/06/22 [History] Mirtazapine [Remeron] 15 mg PO HS PRN 01/13/22 [History] busPIRone HCL 15 mg PO BID 01/13/22 [History] hydrOXYzine HCL [Atarax] 50 mg PO TID 01/13/22 [History] Metoprolol Tartrate [Lopressor] 12.5 mg PO BID 30 Days #60 tab 01/14/22 [Rx] amLODIPine [Norvasc] 5 mg PO BID 30 Days #60 tab 01/14/22 [Rx] [facility] [facility] [place] [place] [facility] - [facility]22 Patient Instructions/Handouts: *[facility] - (Anesthesia) Endoscopy Discharge Instructions, Upper Endoscopy (DC) Activity/Diet/Wound Care/Special Instructions: START BLOOD THINNER ThursdayMAY 08 Discharge Disposition: HOME SELF-CARE
[2022-05-05 08:36] VITALS: BP 106/74; PULSE 94; RESP 20
== END 2022-05-05 08:47 | disposition home or self-care (01) ==
LOC: ORWHC2ENDO 07:07
PROVIDERS: ATTEND Surgery Plastic and Reconstructive Surgery
DX: K21.00 Gastro-esophageal reflux disease with esophagitis, without bleeding (principal); K29.50 Unspecified chronic gastritis without bleeding; K44.9 Diaphragmatic hernia without obstruction or gangrene; E66.01 Morbid (severe) obesity due to excess calories; Z68.41 Body mass index [BMI] 40.0-44.9, adult; Z79.82 Long term (current) use of aspirin; Z79.01 Long term (current) use of anticoagulants; Z79.899 Other long term (current) drug therapy; Z82.49 Family history of ischemic heart disease and other diseases of the circulatory system; Z81.8 Family history of other mental and behavioral disorders; Z80.8 Family history of malignant neoplasm of other organs or systems
CPT/HCPCS: 88305; 43239; J2704; J2001

== ENCOUNTER → 2022-06-24 | Outpatient (CLI) | payer OTHER ==
--- NOTE | 2022-06-24 10:42 | CA ---
Transthoracic Echo Report Name: Jose Juan Crisostomo Age: 42 Gender: M : 1980 Exam Date: 06/24/2022 08:29 Exam Location: [place] [facility] Ht (in): 73 Wt (lb): 380 Ordering Physician: Jules Davis Attending/Referring Phys: Innovation Analyst Lucina Mayorga RDCS Procedure CPT: Indications: R42 orthostatic dizziness Cardiac Hx: Technical Quality: Technically difficult study Contrast 1: Lumason Total Dose (mL): 1 Contrast 2: Total Dose (mL): MEASUREMENTS (Male / Female) Normal Values 2D ECHO LV Diastolic Diameter PLAX 4.3 cm 4.2 - 5.9 / 3.9 - 5.3 cm LV Systolic Diameter PLAX 2.6 cm IVS Diastolic Thickness 1.4 cm 0.6 - 1.0 / 0.6 - 0.9 cm LVPW Diastolic Thickness 1.7 cm 0.6 - 1.0 / 0.6 - 0.9 cm LV Relative Wall Thickness 0.7 M-MODE Aortic Root Diameter MM 3.5 cm LA Systolic Diameter MM 4.3 cm LA Ao Ratio MM 1.2 MV E Point Septal Separation 0.9 cm AV Cusp Separation MM 2.4 cm DOPPLER AV Peak Velocity 105.1 cm/s AV Peak Gradient 4.4 mmHg MV Area PHT 4.0 cm??? MR Peak Velocity 98.2 cm/s MR Peak Gradient 3.9 mmHg Mitral E Point Velocity 49.3 cm/s Mitral A Point Velocity 42.8 cm/s Mitral E to A Ratio 1.2 MV Deceleration Time 189.6 ms TR Peak Velocity 112.9 cm/s TR Peak Gradient 5.1 mmHg Right Ventricular Systolic Press 10.1 mmHg FINDINGS Left Ventricle Mildly increased septal wall thickness. Left ventricular ejection fraction is estimated at 55-60 %. Lumason used to visualize segmental wall motion. Right Ventricle Right ventricle not well visualized. Right Atrium Right atrium not well visualized. Left Atrium Left atrium not well visualized. Mitral Valve Mitral valve not well visualized. Trace mitral regurgitation. Aortic Valve Aortic valve not well visualized. No aortic regurgitation. Tricuspid Valve Tricuspid valve not well visualized. Trace tricuspid regurgitation. Pulmonic Valve Pulmonic valve not well visualized. No pulmonic regurgitation. Pericardium No pericardial effusion. Aorta Aortic root and proximal ascending aorta not well visualized. CONCLUSIONS Technically difficult study for interpretation. Definity was used Normal left ventricular dimension and systolic function Previewed by: Dr. Perfecto Cartagena MD (Electronically Signed) Final Date: 24 June 2022 10:41
== END | disposition home or self-care (01) ==
LOC: RADECHMAIN 08:26
PROVIDERS: ATTEND Family Medicine
DX: E66.01 Morbid (severe) obesity due to excess calories (principal); R06.02 Shortness of breath; R42 Dizziness and giddiness
CPT/HCPCS: C8929; Q9950; 93306

== ENCOUNTER → 2022-07-10 | Outpatient (CLI) | payer OTHER ==
[2022-07-10 15:28] LABS: HCT 42.7 % (39.6-50.0); HGB 14.2 g/dL (13.0-17.0); MCH 28.5 pg (27.0-32.0); MCHC 33.3 g/dL (32.0-37.0); MCV 85.6 fL (80.0-97.0); Mean Platelet Volume 8.7 fL (9.5-12.2); NRBC Per 100 WBC 0 /100 WBCS (0.0-0.0); Platelet Count 305 X 10*3/uL (140-440); RBC 4.99 X 10*6/uL (4.40-5.60); RDW 13.1 % (11.5-14.5); WBC 8.09 X 10*3/uL (4.50-10.00)
[2022-07-10 16:11] LABS: African American GFR (CKD) 109.9 (60.0-200.0); Albumin 4.2 g/dL (3.8-4.9); Anion Gap 8.5 mmol/L (10.00-18.00); BUN/Creat Ratio 14.18 Ratio (12.00-20.00); Blood Urea Nitrogen 13.8 mg/dL (9.0-27.0); Calcium 9.5 mg/dL (8.7-10.3); Carbon Dioxide 30.3 mmol/L (20.0-27.5); Non-African American GFR(CKD) 94.9 (60.0-200.0); Phosphorus 2.2 mg/dL (2.4-5.1); Potassium 4.7 mmol/L (3.5-5.5)
== END | disposition home or self-care (01) ==
LOC: LABWHC1 10:19
PROVIDERS: ATTEND Internal Medicine
DX: D64.9 Anemia, unspecified (principal); I50.9 Heart failure, unspecified; K92.1 Melena; R06.02 Shortness of breath
CPT/HCPCS: 36415; 80069; 83880; 85027

== ENCOUNTER → 2022-11-10 | Outpatient (CLI) | payer OTHER ==
[2022-11-10 10:46] VITALS: BMI 48.9
== END ==
LOC: BARWHC3 08:45
PROVIDERS: ATTEND Surgery Plastic and Reconstructive Surgery
DX: Z71.3 Dietary counseling and surveillance (principal); E66.01 Morbid (severe) obesity due to excess calories; Z68.42 Body mass index [BMI] 45.0-49.9, adult
CPT/HCPCS: 97804

== ENCOUNTER → 2022-12-11 | Outpatient (CLI) | payer OTHER ==
--- NOTE | 2022-12-11 15:13 | XR ---
EXAMINATION TYPE: XR knee complete LT DATE OF EXAM: 12/11/2022 3:01 PM INDICATION: Patient age:Male; 42 years old; Reason for study: M25.562; COMPARISON: None. TECHNIQUE: The Left knee(s) was examined in Frontal, lateral and oblique projections. FINDINGS: Status post total knee arthroplasty changes with hardware in appropriate alignment and in tact. No evidence of fracture. IMPRESSION: Status post total knee arthroplasty changes with hardware intact and appropriate alignment. No fractu res identified.
== END | disposition home or self-care (01) ==
LOC: RADXRMAIN 14:03
PROVIDERS: ATTEND Family Medicine
DX: M25.562 Pain in left knee (principal); Z96.651 Presence of right artificial knee joint

== ENCOUNTER → 2023-02-25 | Outpatient (CLI) | payer OTHER ==
[2023-02-25 11:01] LABS: Basophils # (A) 0.04 X 10*3/uL (0.00-0.10); Basophils % (A) 0.4 %; Eosinophils # (A) 0.14 X 10*3/uL (0.04-0.35); Eosinophils % (A) 1.6 %; HCT 44.9 % (39.6-50.0); Immature Grans, Automated 0.6 %; Lymphocytes # (A) 1.63 X 10*3/uL (0.90-5.00); Lymphocytes % (A) 18.3 %; MCH 27.7 pg (27.0-32.0); MCHC 31.2 g/dL (32.0-37.0); MCV 88.7 fL (80.0-97.0); Mean Platelet Volume 8.3 fL (9.5-12.2); Monocytes # (A) 0.67 X 10*3/uL (0.20-1.00); Monocytes % (A) 7.5 %; NRBC Per 100 WBC 0 /100 WBCS (0.0-0.0); Neutrophils # (A) 6.36 X 10*3/uL (1.80-7.70); Neutrophils % (A) 71.6 %; Platelet Count 395 X 10*3/uL (140-440); RBC 5.06 X 10*6/uL (4.40-5.60); RDW 14.6 % (11.5-14.5); WBC 8.89 X 10*3/uL (4.50-10.00)
[2023-02-25 11:11] LABS: ALT 20 U/L (10-49); AST 17 U/L (14-35); African American GFR (CKD) 84.7 (60.0-200.0); Albumin 4.2 g/dL (3.8-4.9); Albumin/Globulin Ratio 1.83 (1.60-3.17); Alkaline Phosphatase 81 U/L (41-126); BUN/Creat Ratio 14.67 Ratio (12.00-20.00); Blood Urea Nitrogen 17.6 mg/dL (9.0-27.0); Calcium 10.3 mg/dL (8.7-10.3); Carbon Dioxide 28.6 mmol/L (20.0-27.5); Chloride 98 mmol/L (96-109); Chol/HDL Ratio 6.98 Ratio; Globulin 2.3 g/dL (1.6-3.3); Glucose 143 mg/dL (70-110); LDL Cholesterol,Calculated 170.8 mg/dL (0.0-131.0); Non-African American GFR(CKD) 73.1 (60.0-200.0); Sodium 138 mmol/L (135-145); Total Protein 6.5 g/dL (6.2-8.2)
== END | disposition home or self-care (01) ==
LOC: LABWHC1 07:27
PROVIDERS: ATTEND Family Medicine
DX: Z01.812 Encounter for preprocedural laboratory examination (principal)
CPT/HCPCS: 36415; 80053; 80061; 84443; 85025

== ENCOUNTER → 2023-03-13 | Outpatient (CLI) | payer OTHER ==
[2023-03-13 15:09] LABS: Basophils # (A) 0.04 X 10*3/uL (0.00-0.10); Basophils % (A) 0.4 %; Eosinophils # (A) 0.24 X 10*3/uL (0.04-0.35); Eosinophils % (A) 2.3 %; Immature Grans, Automated 0.8 %; Lymphocytes # (A) 1.64 X 10*3/uL (0.90-5.00); Lymphocytes % (A) 15.5 %; MCH 27.6 pg (27.0-32.0); MCHC 30.2 g/dL (32.0-37.0); MCV 91.3 fL (80.0-97.0); Monocytes # (A) 0.63 X 10*3/uL (0.20-1.00); Monocytes % (A) 5.9 %; NRBC Per 100 WBC 0 /100 WBCS (0.0-0.0); Neutrophils # (A) 7.97 X 10*3/uL (1.80-7.70); Neutrophils % (A) 75.1 %; Platelet Count 343 X 10*3/uL (140-440); RBC 4.71 X 10*6/uL (4.40-5.60); RDW 14.9 % (11.5-14.5); WBC 10.61 X 10*3/uL (4.50-10.00)
[2023-03-13 15:29] LABS: Erythrocyte Sedimentation Rate 34 mm/Hr (0-15)
[2023-03-13 17:02] LABS: African American GFR (CKD) 81.4 (60.0-200.0); Albumin 4.1 g/dL (3.8-4.9); Albumin/Globulin Ratio 1.82 (1.60-3.17); Anion Gap 9.9 mmol/L (10.00-18.00); BUN/Creat Ratio 16.29 Ratio (12.00-20.00); Blood Urea Nitrogen 20.2 mg/dL (9.0-27.0); C Reactive Protein 4.1 mg/dL (0.00-0.80); Calcium 9.7 mg/dL (8.7-10.3); Carbon Dioxide 29.8 mmol/L (20.0-27.5); Globulin 2.2 g/dL (1.6-3.3); Non-African American GFR(CKD) 70.3 (60.0-200.0); Potassium 5.4 mmol/L (3.5-5.5); Total Bilirubin 0.3 mg/dL (0.30-1.20); Total Protein 6.3 g/dL (6.2-8.2)
== END | disposition home or self-care (01) ==
LOC: LABWHC1 10:36
PROVIDERS: ATTEND Internal Medicine
DX: L50.9 Urticaria, unspecified (principal)
CPT/HCPCS: 36415; 80053; 84443; 85025; 85652; 86038; 86140; 86160

== ENCOUNTER 2023-03-27 10:27 | Emergency (ER) | payer OTHER ==
[2023-03-27] MEDS ORDERED: SODIUM CHLORIDE 0.9% 1,000 ML IV STA (10:40)
[2023-03-27] MEDS ORDERED: diphenhydrAMINE 50 MG CAP PO STA (10:40)
[2023-03-27] MEDS ORDERED: FAMOTIDINE 20 MG/2 ML VIAL IV STA (10:40)
[2023-03-27] MEDS ORDERED: methylPREDNISolone SOD SUCCI 125 MG/2 ML VIAL IV STA (10:40)
--- NOTE | 2023-03-27 10:48 | ED ---
Allergic Reaction HPI - General Chief complaint: Allergic Reaction Stated complaint: Allergic Reaction Time Seen by Provider: 03/27/23 10:34 Source: patient, RN notes reviewed Mode of arrival: ambulatory Limitations: no limitations - History of Present Illness Initial Comments: This is a 43-year-old male who presents to the emergency department for concerns of an allergic reaction. States that when he woke up this morning, he noticed swelling to his face and lips. Also feels like he had swelling in the hands and feet. Denies any history of similar symptoms in the past and he has no known allergies. Denies any exposures to new medications, soaps, detergents, or foods. He went to urgent care this morning, and they advised him to come to the emergency department. They did not give him any medications. They were concerned that it may be related to the lisinopril. He's been on the lisinopril for many years without any problems. Denies any fevers, chills, sore throat, cough, palpitations, abdominal pain, nausea, vomiting, diarrhea, back pain, or headaches. MD Complaint: allergic reaction, facial swelling Symptoms: facial swelling, lip swelling - Related Data Home Medications Medication Instructions Recorded Confirmed Apixaban [Eliquis] 5 mg PO BID 01/06/22 03/27/23 Esomeprazole Magnesium 40 mg PO DAILY 01/06/22 03/27/23 hydroCHLOROthiazide [Hydrodiuril] 25 mg PO DAILY 01/06/22 03/27/23 busPIRone HCL 15 mg PO TID 01/13/22 03/27/23 Albuterol Sulfate [Albuterol 2 puff INHALATION RT-Q4H PRN 03/27/23 03/27/23 Sulfate Hfa] Bumetanide [BUMEX] 2 mg PO BID 03/27/23 03/27/23 Cetirizine HCl [Zyrtec] 10 mg PO HS 03/27/23 03/27/23 Famotidine [Pepcid] 20 mg PO BID 03/27/23 03/27/23 Fluticasone Propionate 220 Mcg 2 puff INHALATION RT-BID PRN 03/27/23 03/27/23 [Flovent 220 Mcg Inhaler] Loratadine [Claritin] 10 mg PO DAILY 03/27/23 03/27/23 Metoprolol Tartrate [Lopressor] 25 mg PO BID 03/27/23 03/27/23 Mirtazapine [Remeron] 30 mg PO HS PRN 03/27/23 03/27/23 Spironolactone [Aldactone] 50 mg PO DAILY 03/27/23 03/27/23 Spironolactone [Aldactone] 100 mg PO DAILY 03/27/23 03/27/23 Valsartan [Diovan] 320 mg PO DAILY 03/27/23 03/27/23 Venlafaxine HCl [Effexor XR] 75 mg PO DAILY 03/27/23 03/27/23 clonazePAM 0.5 mg PO TID PRN 03/27/23 03/27/23 Previous Rx's Medication Instructions Recorded predniSONE 50 mg PO DAILY 5 Days #5 tab 03/27/23 Allergies Allergy/AdvReac Type Severity Reaction Status Date / Time No Known Allergies Allergy Verified 03/27/23 11:44 Review of Systems ROS Statement: Those systems with pertinent positive or pertinent negative responses have been documented in the HPI. ROS Other: All systems not noted in ROS Statement are negative. Past Medical History Past Medical History: Atrial Fibrillation, Blood Disorder, Deep Vein Thrombosis (DVT), GERD/Reflux, Hearing Disorder / Deafness, Hypertension, Myocardial Infarction ([place]) Additional Past Medical History / Comment(s): DVT X 3- LAST TIME 2012- LT LEG, LUMBAR DDD- . HAS HX MTHFR GENE MUTATION-POSITIVE FOR HETEROZYGOUS PER DR. FRANCISCO'S OFFICE Last Myocardial Infarction Date:: 09/2021 History of Any Multi-Drug Resistant Organisms: None Reported Past Surgical History: Cardiac Ablation, Heart Catheterization, Joint Replacement Additional Past Surgical History / Comment(s): LEFT KNEE REPLACEMENT, LT INDEX JOINT REPLACEMENT, PAIN CLINIC PROCEDURES, COLONOSCOPY Past Anesthesia/Blood Transfusion Reactions: Previous Problems w/ Anesthesia, Family History of Problems w/ Anesthesia, Motion Sickness Additional Past Anesthesia/Blood Transfusion Reaction / Comment(s): HARD TO PUT TO SLEEP-(pt and father) Past Psychological History: Depression Smoking Status: Never smoker Past Alcohol Use History: Occasional Past Drug Use History: None Reported - Past Family History Sister(s) Family Medical History: Cancer Additional Family Medical History / Comment(s): Skin cancer. Mother History Unknown: Yes General Exam Limitations: no limitations General appearance: alert, in no apparent distress Head exam: Present: atraumatic, normocephalic, normal inspection ENT exam: Present: normal oropharynx, mucous membranes moist, other (Minor sw elling to the upper and lower lips.) Respiratory exam: Present: normal lung sounds bilaterally. Absent: respiratory distress, wheezes, rales, rhonchi, stridor Cardiovascular Exam: Present: regular rate, normal rhythm, normal heart sounds. Absent: systolic murmur, diastolic murmur, rubs, gallop, clicks Extremities exam: Present: other (No obvious swelling to the upper or lower extremities.) Neurological exam: Present: alert, oriented X3, CN II-XII intact Psychiatric exam: Present: normal affect, normal mood Skin exam: Present: warm, dry, intact, normal color. Absent: rash Course Vital Signs 03/27/23 03/27/23 10:30 12:01 Temperature 99.9 F H 98.9 F Pulse Rate 123 H 89 Respiratory 20 18 Rate Blood Pressure 186/87 133/64 O2 Sat by Pulse 99 97 Oximetry Medical Decision Making - Medical Decision Making This is a 43-year-old male who presents to the emergency department for concerns of an allergic reaction. Was pt. sent in by a medical professional or institution? @ -Urgent care Did you speak to anyone other than the patient for history? @ -No Did you review nursing and triage notes? @ -Yes, and I agree, it is accurate with regards to the patient's symptoms. Were old charts reviewed? @ -No Differential Diagnosis? @ -Differential Facial Swelling: Allergic reaction, atopic dermatitis, contact dermatitis, hypothyroidism, sinusitis, pharyngitis, COVID, influenza, asthma exacerbation. This is not meant to be an all-inclusive list. EKG interpreted by me (3pts min.)? @ -Not obtained X-rays interpreted by me (1pt min.)? @ -Chest x-ray obtained, my interpretation identifies no localized consolidations or infiltrates. CT interpreted by me (1pt min.)? @ -Not obtained U/S interpreted by me (1pt. min.)? @ -Not obtained What testing was considered but not performed? (CT, X-rays, U/S, labs)? Why? @ -None What meds were considered but not given? Why? @ -None Did you discuss the management of the patient with other professionals? @ -No Did you reconcile home meds? @ -No Was smoking cessation discussed for >3mins.? @ -No Was critical care preformed (if so, how long)? @ -No Were there social determinants of health that impacted care today? How? (Homelessness, low income, unemployed, alcoholism, drug addiction, transpor tation, low edu. Level, literacy, decrease access to med. care, snf, rehab)? @ -No Was there de-escalation of care discussed even if they declined? (Discuss DNR or withdrawal of care, Hospice)? @ -No What co-morbidities impacted this encounter? (DM, HTN, Smoking, COPD, CAD, Cancer, CVA, Hep., AIDS, mental health diagnosis, sleep apnea, morbid obesity)? @ -HTN Was patient admitted / discharged? @ -Discharged. Given that this has never happened to the patient before, I did obtain basic labs on him and a chest x-ray, which were found to be nonactionable. He was given IV fluids and an allergy cocktail consisting Solu- Medrol, Benadryl, and Pepcid. He did note improvement in symptoms following medication administration. Discussed that this can be related to his lisinopril. Instructed him to discontinue this for now and contact his primary care provider regarding the emergency department visit to see what she would like him to do with the medication moving forward. Prescription for an additional 5 day course of prednisone provided with dosing instructions reviewed. Advised taking this with benadryl and pepcid if needed as well. Undiagnosed new problem with uncertain prognosis? @ -None Drug Therapy requiring intensive monitoring for toxicity (Heparin, Nitro, Insulin, Cardizem)? @ -None Were any procedures done? @ -None Diagnosis/symptom? @ -Allergic reaction Acute, or Chronic, or Acute on Chronic? @ -Acute Uncomplicated (without systemic symptoms) or Complicated (systemic symptoms)? @ -Uncomplicated Side effects of treatment? @ -None Exacerbation, Progression, or Severe Exacerbation] @ -Not applicable Poses a threat to life or bodily function? @ -Not at this time, however if he were to develop an anaphylactic reaction, it would be life threatening. Return precautions reviewed in depth, the patient is instructed to return to the emergency department with any new, worsening, or concerning symptoms. Patient verbalized understanding. This case was discussed in detail with the attending ED physician, Dr. Pedro. Presentation, findings, and treatment plan discussed in detail as well. - Lab Data Result diagrams: 03/27/23 10:52 03/27/23 10:52 Lab Results 03/27/23 03/27/23 Range/Units 10:52 10:52 WBC 11.8 H (3.8-10.6) k/uL RBC 4.81 (4.30-5.90) m/uL Hgb 13.8 (13.0-17.5) gm/dL Hct 41.2 (39.0-53.0) % MCV 85.6 (80.0-100.0) fL MCH 28.7 (25.0-35.0) pg MCHC 33.5 (31.0-37.0) g/dL RDW 14.8 (11.5-15.5) % Plt Count 379 (150-450) k/uL MPV 6.4 Neutrophils % 87 % Lymphocytes % 7 % Monocytes % 4 % Eosinophils % 1 % Basophils % 0 % Neutrophils # 10.2 H (1.3-7.7) k/uL Lymphocytes # 0.9 L (1.0-4.8) k/uL Monocytes # 0.5 (0-1.0) k/uL Eosinophils # 0.1 (0-0.7) k/uL Basophils # 0.0 (0-0.2) k/uL Hypochromasia Slight Poikilocytosis Slight Sodium 134 L (137-145) mmol/L Potassium 4.4 (3.5-5.1) mmol/L Chloride 93 L (98-107) mmol/L Carbon Dioxide 30 (22-30) mmol/L Anion Gap 11 mmol/L BUN 21 H (9-20) mg/dL Creatinine 1.01 (0.66-1.25) mg/dL Est GFR (CKD-EPI)AfAm >90 (>60 ml/min/1.73 sqM) Est GFR (CKD-EPI)NonAf >90 (>60 ml/min/1.73 sqM) Glucose 121 H (74-99) mg/dL Calcium 9.5 (8.4-10.2) mg/dL Total Bilirubin 0.6 (0.2-1.3) mg/dL AST 24 (17-59) U/L ALT 25 (4-49) U/L Alkaline Phosphatase 82 (38-126) U/L Total Protein 6.7 (6.3-8.2) g/dL Albumin 4.0 (3.5-5.0) g/dL TSH 1.260 (0.465-4.680) mIU/L - Radiology Data Radiology results: report reviewed, image reviewed Disposition Clinical Impression: Allergic reaction Disposition: HOME SELF-CARE Instructions (If sedation given, give patient instructions): General Allergic Reaction (ED) Additional Instructions: Return to the emergency department with any new, worsening, or concerning symptoms. Take the prednisone daily for 5 days. You can also take this with Benadryl or another brwk-[id number]-[id number] antihistamine if needed. Stop taking the lisinopril for now, and contact your primary care provider regarding the problem and see if they would like you to continue it or change medications. Follow up with your primary care provider in 1-2 days. Prescriptions: predniSONE 50 mg PO DAILY 5 Days #5 tab Is patient prescribed a controlled substance at d/c from ED?: No Referrals: Aden Diaz MD [Primary Care Provider] - 1-2 days
[2023-03-27 11:03] LABS: Basophils % (A) 0 %; Eosinophils # (A) 0.1 k/uL (0-0.7); Eosinophils % (A) 1 %; HCT 41.2 % (39.0-53.0); HGB 13.8 gm/dL (13.0-17.5); Hypochromasia Slight; Lymphocytes # (A) 0.9 k/uL (1.0-4.8); Lymphocytes % (A) 7 %; MCH 28.7 pg (25.0-35.0); MCHC 33.5 g/dL (31.0-37.0); MCV 85.6 fL (80.0-100.0); Mean Platelet Volume 6.4; Monocytes # (A) 0.5 k/uL (0-1.0); Monocytes % (A) 4 %; Neutrophils # (A) 10.2 k/uL (1.3-7.7); Neutrophils % (A) 87 %; Platelet Count 379 k/uL (150-450); Poikilocytosis Slight; RBC 4.81 m/uL (4.30-5.90); RDW 14.8 % (11.5-15.5); WBC 11.8 k/uL (3.8-10.6)
--- NOTE | 2023-03-27 11:07 | XR ---
EXAMINATION TYPE: XR chest 2V DATE OF EXAM: 03/27/2023 COMPARISON: Chest x-ray January 13, 2022 HISTORY: Difficulty in breathing. TECHNIQUE: Frontal and lateral views of the chest are obtained. FINDINGS: There is no focal air space opacity, pleural effusion, or pneumothorax seen. The cardiac silhouette size is stable and within normal limits. The osseous structures are intact. IMPRESSION: No acute process. No significant change from prior.
[2023-03-27 11:10] LABS: ALT 25 U/L (4-49); AST 24 U/L (17-59); African American GFR (CKD) >90 (>60 ml/min/1.73 sqM); Alkaline Phosphatase 82 U/L (38-126); Anion Gap 11 mmol/L; Blood Urea Nitrogen 21 mg/dL (9-20); Calcium 9.5 mg/dL (8.4-10.2); Carbon Dioxide 30 mmol/L (22-30); Chloride 93 mmol/L (98-107); Glucose 121 mg/dL (74-99); Non-African American GFR(CKD) >90 (>60 ml/min/1.73 sqM); Potassium 4.4 mmol/L (3.5-5.1); Sodium 134 mmol/L (137-145); Total Bilirubin 0.6 mg/dL (0.2-1.3); Total Protein 6.7 g/dL (6.3-8.2)
[2023-03-27 12:03] VITALS: BP 133/64; PULSE 89; RESP 18; TEMP 98.9
== END 2023-03-27 12:02 | disposition home or self-care (01) ==
LOC: EC 10:27
DX: T78.40XA Allergy, unspecified, initial encounter (principal); I48.91 Unspecified atrial fibrillation; K21.9 Gastro-esophageal reflux disease without esophagitis; I10 Essential (primary) hypertension; I25.2 Old myocardial infarction; F32.A Depression, unspecified; Z79.01 Long term (current) use of anticoagulants; Z79.899 Other long term (current) drug therapy
CPT/HCPCS: 36415; 80053; 84443; 85025; 71046; 99283; 96374; 96375; 96361; J2930

== ENCOUNTER → 2023-04-01 | Outpatient (CLI) | payer OTHER ==
[2023-04-01 11:16] LABS: INR 0.9 (<1.2); Partial Thromboplastin Time 24.4 sec (22.0-30.0); Prothrombin Time 9.9 sec (9.0-12.0)
[2023-04-01 15:39] LABS: % Iron Saturation 11.6 (15.00-50.00); Magnesium 2.2 mg/dL (1.5-2.4); Phosphorus 2.7 mg/dL (2.4-5.1); Prealbumin 31.1 mg/dL (18.0-42.0)
[2023-04-01 16:50] LABS: HDL Cholesterol 41.5 mg/dL (40.00-60.00)
[2023-04-01 17:02] LABS: Chol/HDL Ratio 5.88 Ratio
[2023-04-02 09:39] LABS: Zinc, Serum 71 ug/dL (60-130)
[2023-04-03 07:22] LABS: Vit B1(Thiamine) 77 ug/L (38-122)
== END | disposition home or self-care (01) ==
LOC: LABWHC1 09:27
PROVIDERS: ATTEND Surgery Plastic and Reconstructive Surgery
DX: E66.01 Morbid (severe) obesity due to excess calories (principal); E89.1 Postprocedural hypoinsulinemia; D50.8 Other iron deficiency anemias; K91.2 Postsurgical malabsorption, not elsewhere classified; E45 Retarded development following protein-calorie malnutrition; E46 Unspecified protein-calorie malnutrition; E55.9 Vitamin D deficiency, unspecified; K74.1 Hepatic sclerosis; N19 Unspecified kidney failure; T56.894A Toxic effect of other metals, undetermined, initial encounter; K50.90 Crohn's disease, unspecified, without complications; I44.4 Left anterior fascicular block; I21.19 ST elevation (STEMI) myocardial infarction involving other coronary artery of inferior wall; R94.31 Abnormal electrocardiogram [ECG] [EKG]
CPT/HCPCS: 36415; 80061; 82306; 82525; 82607; 82728; 82746; 83036; 83540; 83550; 83721; 83735; 83970; 84100; 84134; 84255; 84425; 84590; 84630; 85610; 85730; 93005

== ENCOUNTER → 2023-04-08 | Outpatient (CLI) | payer OTHER ==
[2023-04-08 19:53] LABS: Protein, Total 6.2 g/dL (6.2-8.2)
[2023-04-10 06:39] LABS: Albumin 3.43 g/dL (3.80-4.90); Gamma Globulin 0.5 g/dL (0.70-1.50)
== END | disposition home or self-care (01) ==
LOC: LABWHC1 15:12
PROVIDERS: ATTEND Internal Medicine
DX: T78.3XXA Angioneurotic edema, initial encounter (principal)
CPT/HCPCS: 36415; 84165; 86160; 86161

== ENCOUNTER → 2023-04-08 | Outpatient (CLI) | payer OTHER ==
[2023-04-08 16:07] VITALS: BP 151/83; PULSE 114; TEMP 97.9; BMI 53.5
--- NOTE | 2023-04-08 16:55 | P.BASOAP ---
Subjective Progress Note Date: 04/08/23 He completed his labs. Findings of multiple vitamin deficiences including iron new, vitamin d, higher triglycerides, cholesterol. Has worsening leukocytosis. Findings of iron deficiency anemia. Patient then reveals dark stools with epigastric pain and worsening. Findings consistent with iron deficiency due to blood loss. Recommend women MVI, vitamin D weekly, re-check chol, do 2 week protein diet. Objective - Vital Signs Vital signs: Vital Signs Temp 97.9 F 04/08/23 16:03 Pulse 114 H 04/08/23 16:03 Resp BP 151/83 04/08/23 16:03 Pulse Ox FiO2 Intake & Output 04/07/23 04/08/23 04/08/23 18:59 06:59 18:59 Weight 184.159 kg Assessment/Plan Plan: Date: 04/08/23 Initial Weight: Initial BMI: Current Weight: 184.159 kg Current BMI: 53.5 Type of Surgery: Total Volume in Band: Previous Volume: Volume Removed: Volume Added: Band Size:
== END ==
LOC: BARWHC3 15:36
PROVIDERS: ATTEND Surgery Plastic and Reconstructive Surgery
DX: E66.01 Morbid (severe) obesity due to excess calories (principal); Z68.43 Body mass index [BMI] 50.0-59.9, adult
CPT/HCPCS: 99211

== ENCOUNTER 2023-04-27 07:02 | Day surgery (SDC) | payer OTHER ==
[2023-04-27 07:31] VITALS: RESP 16; TEMP 97.6
--- NOTE | 2023-04-27 07:34 | P.GSHP ---
History of Present Illness H&P Date: 04/27/23 CHIEF COMPLAINT: GERD and colon screen HISTORY OF PRESENT ILLNESS: The patient is a 43-year-old male who presents with gastroesophageal reflux disease and need for colon screen. Upper and lower endoscopy were offered for further evaluation and management. PAST MEDICAL HISTORY: Please see list. PAST SURGICAL HISTORY: Please see list. MEDICATIONS: Please see list. ALLERGIES: Please see list. SOCIAL HISTORY: No illicit drug use FAMILY HISTORY: No reports of Crohn disease or ulcerative colitis. REVIEW OF ORGAN SYSTEMS: CONSTITUTIONAL: No reports of fevers or chills. GI: Denies any blood in stools or constipation. PHYSICAL EXAM: VITAL SIGNS: Stable GENERAL: Well-developed pleasant in no acute distress. HEENT: No scleral icterus. Extraocular movements grossly intact. Moist buccal mucosa. NECK: Supple without lymphadenopathy. CHEST: Unlabored respirations. Equal bilateral excursions. CARDIOVASCULAR: Regular rate and rhythm. Distal 2+ pulses. ABDOMEN: Soft, nondistended. MUSCULOSKELETAL: No clubbing, cyanosis, or edema. ASSESSMENT: 1. Gastroesophageal reflux disease 2. Colon screen. PLAN: 1. Recommend proceeding with an upper and lower endoscopy Past Medical History Past Medical History: Atrial Fibrillation, Asthma, Blood Disorder, Deep Vein Thrombosis (DVT), GERD/Reflux, Hearing Disorder / Deafness, Hyperlipidemia, Hypertension, Myocardial Infarction ([place]), Pneumonia, Sleep Apnea/CPAP/BIPAP Additional Past Medical History / Comment(s): Recent rectal bleed. DVT X 3- LAST TIME 2012- LT LEG, L leg edema, LUMBAR DDD- . HAS HX MTHFR GENE MUTATION- POSITIVE FOR HETEROZYGOUS PER DR. FRANCISCO'S OFFICE, PILY/difficulty tolerating device, bilateral hearing loss, recent allergic reaction/hives/cause unknown. Last Myocardial Infarction Date:: 09/2021 History of Any Multi-Drug Resistant Organisms: None Reported Past Surgical History: Cardiac Ablation, Heart Catheterization, Joint Replacement Additional Past Surgical History / Comment(s): LEFT KNEE REPLACEMENT, LT INDEX JOINT REPLACEMENT, PAIN CLINIC PROCEDURES, COLONOSCOPY Past Anesthesia/Blood Transfusion Reactions: Previous Problems w/ Anesthesia, Family History of Problems w/ Anesthesia, Motion Sickness, Postoperative Nausea & Vomiting (PONV) Additional Past Anesthesia/Blood Transfusion Reaction / Comment(s): HARD TO PUT TO SLEEP-(pt and father) Smoking Status: Never smoker - Past Family History Sister(s) Family Medical History: Cancer Additional Family Medical History / Comment(s): Skin cancer. Mother History Unknown: Yes Medications and Allergies Home Medications Medication Instructions Recorded Confirmed Type Apixaban [Eliquis] 5 mg PO BID 01/06/22 04/27/23 History Esomeprazole Magnesium 40 mg PO DAILY 01/06/22 04/22/23 History Bumetanide [BUMEX] 2 mg PO BID 03/27/23 04/22/23 History Metoprolol Tartrate [Lopressor] 25 mg PO BID 03/27/23 04/22/23 History Spironolactone [Aldactone] 50 mg PO DAILY 03/27/23 04/22/23 History Valsartan [Diovan] 320 mg PO QAM 03/27/23 04/22/23 History Venlafaxine HCl [Effexor XR] 187.5 mg PO QAM 03/27/23 04/22/23 History clonazePAM 0.5 mg PO TID PRN 03/27/23 04/22/23 History Cholecalciferol [Vitamin D3 (25 25 mcg PO BID 04/22/23 04/22/23 History Mcg = 1000 Iu)] Mirtazapine [Remeron] 30 mg PO HS PRN 04/22/23 04/22/23 History Multivit with Calcium,Iron,Min 1 each PO DAILY 04/22/23 04/22/23 History [Women's Multivitamin] hydroCHLOROthiazide [Hydrodiuril] 25 mg PO DAILY 04/22/23 04/22/23 History Allergies Allergy/AdvReac Type Severity Reaction Status Date / Time No Known Allergies Allergy Verified 04/27/23 07:19 Surgical - Exam Vital Signs Temp Pulse Resp BP Pulse Ox 97.6 F 90 16 154/81 96 04/27/23 07:24 04/27/23 07:24 04/27/23 07:24 04/27/23 07:24 04/27/23 07:24
[2023-04-27] MEDS ORDERED: LIDOCAINE 2% INJ 20 MG/ML (2 ML VIAL) ONE (07:46)
[2023-04-27] MEDS ORDERED: KETAMINE 10 MG/ML 20 ML VIAL ONE (07:46)
[2023-04-27] MEDS ORDERED: PROPOFOL 10 MG/ML 20 ML VIAL IV ONE (07:46)
--- NOTE | 2023-04-27 08:05 | P.PCN ---
Date of Procedure: 04/27/23 Description of Procedure: PREOPERATIVE DIAGNOSIS: Gastroesophageal reflux disease. Morbid obesity. GI bleed POSTOPERATIVE DIAGNOSIS: Gastroesophageal reflux disease. Morbid obesity. Gastritis. OPERATION: Esophagogastroduodenoscopy with biopsies along antrum. SURGEON: Lo Sun MD ANESTHESIA: MAC. INDICATIONS: The patient is a 43-year-old male who presents with reflux disease. Benefits and risks of the procedure were described. Informed consent was obtained. DESCRIPTION: The patient was brought into the endoscopy suite and laid in the left lateral decubitus position. An Olympus gastroscope was passed along the posterior oropharynx down to the distal esophagus where the squamocolumnar junction was encountered at 45 cm from the incisors. The stomach was entered and no bile reflux was found. Additional findings are listed below. Biopsies with cold forceps were obtained of the antrum. The first through third portion of the duodenum was examined. Retroflexion of the scope confirmed Hill grade 2 lower esophageal valve. The squamocolumnar junction demonstrated LA grade B erosive es ophagitis. The stomach was desufflated. The patient tolerated the procedure well. FINDINGS: Squamocolumnar junction 45 cm from the incisors. Diaphragmatic hiatus at 45 cm. Hill grade 2 lower esophageal valve. LA grade B erosive esophagitis. Biopsies obtained of the duodenum. Chronic gastritis with biopsies obtained. RECOMMENDATIONS: Upper endoscopy as needed.
--- NOTE | 2023-04-27 08:31 | P.PCN ---
Date of Procedure: 04/27/23 Description of Procedure: PREOPERATIVE DIAGNOSIS: GI bleed History of anticoagulant use POSTOPERATIVE DIAGNOSIS: Tubular adenoma cecum Pandiverticulosis, scattered Sigmoid diverticulosis Internal hemorrhoids, grade 2 OPERATION: Colonoscopy to the ileocecal valve and appendiceal orifice, cecum Colonoscopy with cold forceps biopsy SURGEON: Lo Sun MD. ANESTHESIA: MAC. INDICATIONS: The patient is an 43-year-old male who presents with GI bleed. Benefits and risks were described and informed consent was obtained. DESCRIPTION OF PROCEDURE: The patient had undergone Sutab prep. The patient had been brought into the operating room and laid in the left lateral decubitus position. After adequate intravenous sedation, the rectum was examined with 2% lidocaine jelly. The prostate was unremarkable. External hemorrhoids were encountered. The rectal tone was within normal limits. No lesions were palpated in the rectal vault. An Olympus colonoscope was advanced until the cecum, ileocecal valve and appendiceal orifice were clearly viewed. The prep was excellent. Scattered pandiverticulosis with few sigmoid diverticulosis was encountered. Colonic polyps were found and removed. No evidence of focal colitis was found. Retroflexion of the scope demonstrated grade 2 internal hemorrhoids without active bleeding or inflammation. The colon was desufflated. The patient had tolerated the procedure well. Withdrawal time was over 6 minutes. FINDINGS: Aronchick preparation quality scale 1 (1-5) Internal hemorrhoids, grade 2 External hemorrhoids, grade 2. No arteriovenous malformations. Sigmoid diverticulosis with pandiverticulosis Removal of 2 polyps: - Cold forceps biopsy at cecum 2, 3 to 4 mm adenoma No focal colitis. RECOMMENDATIONS: Repeat colonoscopy 3 years, 2025 Plan - Discharge Summary Discharge Rx Participant: No New Discharge Prescriptions: Continue Esomeprazole Magnesium 40 mg PO DAILY Bumetanide [BUMEX] 2 mg PO BID Venlafaxine HCl [Effexor XR] 187.5 mg PO QAM Multivit with Calcium,Iron,Min [Women's Multivitamin] 1 each PO DAILY Mirtazapine [Remeron] 30 mg PO HS PRN PRN Reason: sleep Apixaban [Eliquis] 5 mg PO BID Metoprolol Tartrate [Lopressor] 25 mg PO BID Spironolactone [Aldactone] 50 mg PO DAILY clonazePAM 0.5 mg PO TID PRN PRN Reason: Anxiety Valsartan [Diovan] 320 mg PO QAM Cholecalciferol [Vitamin D3 (25 Mcg = 1000 Iu)] 25 mcg PO BID hydroCHLOROthiazide [Hydrodiuril] 25 mg PO DAILY Discharge Medication List Apixaban [Eliquis] 5 mg PO BID 01/06/22 [History] Esomeprazole Magnesium 40 mg PO DAILY 01/06/22 [History] Bumetanide [BUMEX] 2 mg PO BID 03/27/23 [History] Metoprolol Tartrate [Lopressor] 25 mg PO BID 03/27/23 [History] Spironolactone [Aldactone] 50 mg PO DAILY 03/27/23 [History] Valsartan [Diovan] 320 mg PO QAM 03/27/23 [History] Venlafaxine HCl [Effexor XR] 187.5 mg PO QAM 03/27/23 [History] clonazePAM 0.5 mg PO TID PRN 03/27/23 [History] Cholecalciferol [Vitamin D3 (25 Mcg = 1000 Iu)] 25 mcg PO BID 04/22/23 [History] Mirtazapine [Remeron] 30 mg PO HS PRN 04/22/23 [History] Multivit with Calcium,Iron,Min [Women's Multivitamin] 1 each PO DAILY 04/22/23 [History] hydroCHLOROthiazide [Hydrodiuril] 25 mg PO DAILY 04/22/23 [History] [place] [facility] [facility] [place] [place] Patient Instructions/Handouts: GERD (Gastroesophageal Reflux Disease) (DC), Colorectal Polyps (GEN), Diverticulosis Diet (GEN), Diverticulosis (DC) Activity/Diet/Wound Care/Special Instructions: Repeat colonoscopy in 3 years, 2025 Discharge Disposition: HOME SELF-CARE
[2023-04-27 08:36] VITALS: BP 135/90; PULSE 105
== END 2023-04-27 08:59 | disposition home or self-care (01) ==
LOC: ORWHC2ENDO 07:02
PROVIDERS: ATTEND Surgery Plastic and Reconstructive Surgery
DX: D12.0 Benign neoplasm of cecum (principal); K57.30 Diverticulosis of large intestine without perforation or abscess without bleeding; K64.1 Second degree hemorrhoids; K64.4 Residual hemorrhoidal skin tags; K29.90 Gastroduodenitis, unspecified, without bleeding; K21.00 Gastro-esophageal reflux disease with esophagitis, without bleeding; K44.9 Diaphragmatic hernia without obstruction or gangrene; I25.2 Old myocardial infarction; I25.10 Atherosclerotic heart disease of native coronary artery without angina pectoris; I48.91 Unspecified atrial fibrillation; I10 Essential (primary) hypertension; E78.5 Hyperlipidemia, unspecified; G47.33 Obstructive sleep apnea (adult) (pediatric); Z99.89 Dependence on other enabling machines and devices; Z86.718 Personal history of other venous thrombosis and embolism; J45.909 Unspecified asthma, uncomplicated; H91.93 Unspecified hearing loss, bilateral; Z79.01 Long term (current) use of anticoagulants; Z79.899 Other long term (current) drug therapy
CPT/HCPCS: 88305; 45380; 43239; J2704; J2001

== ENCOUNTER → 2023-05-14 | Outpatient (CLI) | payer OTHER ==
--- NOTE | 2023-05-14 08:55 | US ---
EXAMINATION TYPE: US renal artery duplex complet DATE OF EXAM: 05/14/2023 COMPARISON: NONE CLINICAL INDICATION: Male, 43 years old with history of I10 HTN; HTN for 20 years MEASUREMENTS: RENAL SIZE: Rt Kidney: 11.9 x 5.9 x 5.7cm Lt Kidney: 12.6 x 5.8 x 5.5cm RESISTANCE INDEX Right: 0.65 Left: 0.62 RA/AO RATIO (< 3.5 ) Right: Cannot calculate due to obscuration of the aorta due to overlying bowel gas Left: Cannot calculate due to obscuration of the aorta due to overlying bowel gas RA VELOCITY ( < 180 cm/s) Right: 150.9cm/s Left: 124.9cm/s Extremely limited exam due to patient's body habitus and large amount of overlying bowel content. Aor ta obscured. Renals appear unremarkable as visualized. Limited evaluation of bilateral renal arteries . IMPRESSION: Extremely limited examination due to patient's body habitus and overlying bowel gas. The aorta was ob scured. The renal artery velocities and resistive indices are within normal limits. No definitive ult rasound evidence for renal artery stenosis within these limitations. If there is continued clinical c oncern, consider further evaluation with CTA or MRA abdomen.
== END | disposition home or self-care (01) ==
LOC: RADUSWWP 07:58
PROVIDERS: ATTEND Family Medicine
DX: I10 Essential (primary) hypertension (principal)
CPT/HCPCS: 93975

== ENCOUNTER 2023-05-15 10:42 | Emergency (ER) | payer OTHER ==
[2023-05-15 10:50] VITALS: RESP 18
[2023-05-15] MEDS ORDERED: HYDROcodone/APAP 7.5-325MG 1 EACH TAB PO ONE (11:02)
--- NOTE | 2023-05-15 11:21 | ED ---
Extremity Problem HPI - General Chief complaint: Extremity Problem,Nontraumatic Stated complaint: left leg poss DVT Time Seen by Provider: 05/15/23 10:51 Source: patient, RN notes reviewed Mode of arrival: ambulatory Limitations: no limitations - History of Present Illness Initial comments: This is a 43-year-old male who presents to the emergency department for left lower extremity pain and swelling. States that this started yesterday. He is concerned about a blood clot. He does have a history of DVTs and is currently taking Eliquis. States that he has had blood clots while on Eliquis before. He is not taking anything to treat his pain. Denies any chest pain or shortness of breath. Denies any fevers, chills, sore throat, cough, dyspnea, chest pain, palpitations, abdominal pain, nausea, vomiting, diarrhea, back pain, or headaches. MD Complaint: extremity pain, extremity swelling - Related Data Home Medications Medication Instructions Recorded Confirmed Apixaban [Eliquis] 5 mg PO BID 01/06/22 04/27/23 Esomeprazole Magnesium 40 mg PO DAILY 01/06/22 04/22/23 Bumetanide [BUMEX] 2 mg PO BID 03/27/23 04/22/23 Metoprolol Tartrate [Lopressor] 25 mg PO BID 03/27/23 04/22/23 Spironolactone [Aldactone] 50 mg PO DAILY 03/27/23 04/22/23 Valsartan [Diovan] 320 mg PO QAM 03/27/23 04/22/23 Venlafaxine HCl [Effexor XR] 187.5 mg PO QAM 03/27/23 04/22/23 clonazePAM 0.5 mg PO TID PRN 03/27/23 04/22/23 Cholecalciferol [Vitamin D3 (25 25 mcg PO BID 04/22/23 04/22/23 Mcg = 1000 Iu)] Mirtazapine [Remeron] 30 mg PO HS PRN 04/22/23 04/22/23 Multivit with Calcium,Iron,Min 1 each PO DAILY 04/22/23 04/22/23 [Women's Multivitamin] hydroCHLOROthiazide [Hydrodiuril] 25 mg PO DAILY 04/22/23 04/22/23 Previous Rx's Medication Instructions Recorded Cephalexin [Keflex] 500 mg PO Q6HR 7 Days #28 cap 05/15/23 HYDROcodone/APAP 5-325MG [[place] 1 tab PO Q6HR PRN 3 Days #12 tab 05/15/23 5-325] Allergies Allergy/AdvReac Type Severity Reaction Status Date / Time No Known Allergies Allergy Verified 05/15/23 10:50 Review of Systems ROS Statement: Those systems with pertinent positive or pertinent negative responses have been documented in the HPI. ROS Other: All systems not noted in ROS Statement are negative. Past Medical History Past Medical History: Atrial Fibrillation, Blood Disorder, Deep Vein Thrombosis (DVT), GERD/Reflux, Hearing Disorder / Deafness, Hypertension, Myocardial Infarction (NE) Additional Past Medical History / Comment(s): DVT X 3- LAST TIME 2012- LT LEG, LUMBAR DDD- . HAS HX MTHFR GENE MUTATION-POSITIVE FOR HETEROZYGOUS PER DR. FRANCISCO'S OFFICE Last Myocardial Infarction Date:: 09/2021 History of Any Multi-Drug Resistant Organisms: None Reported Past Surgical History: Cardiac Ablation, Heart Catheterization, Joint Replacement Additional Past Surgical History / Comment(s): LEFT KNEE REPLACEMENT, LT INDEX JOINT REPLACEMENT, PAIN CLINIC PROCEDURES, COLONOSCOPY Past Anesthesia/Blood Transfusion Reactions: Previous Problems w/ Anesthesia, Family History of Problems w/ Anesthesia, Motion Sickness Additional Past Anesthesia/Blood Transfusion Reaction / Comment(s): HARD TO PUT TO SLEEP-(pt and father) Past Psychological History: Depression Smoking Status: Never smoker Past Alcohol Use History: Occasional - Past Family History Sister(s) Family Medical History: Cancer Additional Family Medical History / Comment(s): Skin cancer. Mother History Unknown: Yes General Exam Limitations: no limitations General appearance: alert, in no apparent distress Head exam: Present: atraumatic, normocephalic, normal inspection Respiratory exam: Present: normal lung sounds bilaterally. Absent: respiratory distress, wheezes, rales, rhonchi, stridor Cardiovascular Exam: Present: regular rate, normal rhythm, normal heart sounds. Absent: systolic murmur, diastolic murmur, rubs, gallop, clicks Extremities exam: Present: other (Left lower extremity erythema, swelling, and tenderness beginning in the mid calf and spreading distally. 2+ DP and PT pulses.) Neurological exam: Present: alert, oriented X3, CN II-XII intact Psychiatric exam: Present: normal affect, normal mood Skin exam: Present: warm, dry, intact Course Vital Signs 05/15/23 05/15/23 10:47 13:28 Temperature 98 F 97.9 F Pulse Rate 96 86 Respiratory 18 18 Rate Blood Pressure 115/66 121/74 O2 Sat by Pulse 94 L 95 Oximetry Medical Decision Making - Medical Decision Making This is a 43-year-old male who presents to the emergency department for left leg pain. Was pt. sent in by a medical professional or institution? @ -No Did you speak to anyone other than the patient for history? @ -No Did you review nursing and triage notes? @ -Yes, and I agree, it is accurate with regards to the patient's symptoms. Were old charts reviewed? @ -No Differential Diagnosis? @ -Differential Leg Pain: Leg fracture, leg sprain, DVT, PVD, arterial insufficiency, iliac artery aneurysm, cellulitis, compartment syndrome, tendinopathy, nerve entrapment, piriformis syndrome, osteoarthritis, rhabdomyolysis, myositis, cramping from an electrolyte imbalance, this is not meant to be an all inclusive list. EKG interpreted by me (3pts min.)? @ -Not obtained X-rays interpreted by me (1pt min.)? @ -X-ray of the left tib-fib obtained. My interpretation identifies no acute fractures or dislocations. CT interpreted by me (1pt min.)? @ -Not obtained U/S interpreted by me (1pt. min.)? @ -Duplex ultrasound of the left lower extremity obtained. My interpretation identifies no evidence of a DVT. What testing was considered but not performed? (CT, X-rays, U/S, labs)? Why? @ -None What meds were considered but not given? Why? @ -None Did you discuss the management of the patient with other professionals? @ -No Did you reconcile home meds? @ -No Was smoking cessation discussed for >3mins.? @ -No Was critical care preformed (if so, how long)? @ -No Were there social determinants of health that impacted care today? How? (Homelessness, low income, unemployed, alcoholism, drug addiction, transportation, low edu. Level, literacy, decrease access to med. care, correction, rehab)? @ -No Was there de-escalation of care discussed even if they declined? (Discuss DNR or withdrawal of care, Hospice)? @ -No What co-morbidities impacted this encounter? (DM, HTN, Smoking, COPD, CAD, Cancer, CVA, Hep., AIDS, mental health diagnosis, sleep apnea, morbid obesity)? @ -A-fib, HTN, morbid obesity Was patient admitted / discharged? @ -Discharged. Duplex US of the left lower extremity obtained. No evidence of a DVT was identified. The leg was erythematous, hot, and swollen. He does also appear to have abrasions. Discussed the possibility of a cellulitis, as they can prevent very similarly. Rx for Keflex provided with dosing instructions reviewed. He is advised follow-up with his primary care provider for reevaluation and possible repeat ultrasound in the event this persists. Given his severe pain and because he has to limit his use of NSAIDs due to being on Eliquis, he was given a prescription for a short course of [place]. Advised he ta ke this very sparingly when his pain is the most severe and he is also advised to avoid driving or operating machinery when taking this. Undiagnosed new problem with uncertain prognosis? @ -None Drug Therapy requiring intensive monitoring for toxicity (Heparin, Nitro, Insulin, Cardizem)? @ -None Were any procedures done? @ -None Diagnosis/symptom? @ -Left lower extremity cellulitis Acute, or Chronic, or Acute on Chronic? @ -Acute Uncomplicated (without systemic symptoms) or Complicated (systemic symptoms)? @ -Uncomplicated Side effects of treatment? @ -None Exacerbation, Progression, or Severe Exacerbation] @ -Not applicable Poses a threat to life or bodily function? @ -No Return precautions reviewed in depth, the patient is instructed to return to the emergency department with any new, worsening, or concerning symptoms. Patient verbalized understanding. This case was discussed in detail with the attending ED physician, Dr. De Souza. Presentation, findings, and treatment plan discussed in detail as well. - Radiology Data Radiology results: report reviewed, image reviewed Disposition Clinical Impression: Left leg cellulitis Disposition: HOME SELF-CARE Instructions (If sedation given, give patient instructions): Cellulitis (ED) Additional Instructions: Return to the emergency department with any new, worsening, or concerning symptoms. Take the antibiotics as prescribed for 7 days. Take Tylenol as needed for pain relief. Take the [place] sparingly when your pain is the most severe and avoid driving or operating machinery when taking this. Follow up with your primary care provider in 1-2 days. Prescriptions: Cephalexin [Keflex] 500 mg PO Q6HR 7 Days #28 cap HYDROcodone/APAP 5-325MG [[place] 5-325] 1 tab PO Q6HR PRN 3 Days #12 tab PRN Reason: Pain Is patient prescribed a controlled substance at d/c from ED?: No Referrals: Aden Diaz MD [Primary Care Provider] - 1-2 days
--- NOTE | 2023-05-15 11:52 | US ---
EXAMINATION TYPE: US venous doppler duplex LE LT DATE OF EXAM: 05/15/2023 11:44 AM COMPARISON: CLINICAL INDICATION: Male, 43 years old with history of Left leg pain and swelling; On blood thinners . Patient states he is gets left leg DVT. Calf pain. SIDE PERFORMED: Left TECHNIQUE: The lower extremity deep venous system is examined utilizing real time linear array sonog matheus with graded compression, doppler sonography and color-flow sonography. VESSELS IMAGED: Common Femoral Vein Deep Femoral Vein Greater Saphenous Vein * Femoral Vein Popliteal Vein Small Saphenous Vein * Proximal Calf Veins (* superficial vessels) Limited exam due to patient body habitus Left Leg: Appears negative for acute DVT. IMPRESSION: Grayscale, color doppler, spectral doppler imaging performed of the deep veins of the lo wer extremities. There is normal flow, compressibility, vascular waveforms.
[2023-05-15] MEDS ORDERED: KETOROLAC 15 MG/ML 1 ML VIAL IM SCH (12:00)
[2023-05-15] MEDS ORDERED: MORPHINE SULFATE 4 MG/ML SYRINGE IM STA (12:07)
--- NOTE | 2023-05-15 12:38 | XR ---
EXAMINATION TYPE: XR tibia fibula LT DATE OF EXAM: 05/15/2023 12:31 PM INDICATION: Patient age:Male; 43 years old; Reason for study: Leg pain and redness; COMPARISON: 12/11/2022 TECHNIQUE: The left tibia/fibula was examined in AP and lateral projections. FINDINGS: Left knee arthroplasty changes. Hardware appears intact. No evidence of any acute osseous p athology, joint dislocation, or soft tissue swelling is noted. IMPRESSION: 1. No evidence of acute fracture. 2. Arthroplasty changes of the left knee without evidence of fracture. Hardware is intact.
[2023-05-15 13:29] VITALS: BP 121/74; PULSE 86; TEMP 97.9
== END 2023-05-15 13:29 | disposition home or self-care (01) ==
LOC: EC 10:42
DX: L03.116 Cellulitis of left lower limb (principal); I10 Essential (primary) hypertension; I25.2 Old myocardial infarction; I48.91 Unspecified atrial fibrillation; F32.A Depression, unspecified; K21.9 Gastro-esophageal reflux disease without esophagitis; Z79.01 Long term (current) use of anticoagulants; Z79.899 Other long term (current) drug therapy
CPT/HCPCS: 73590; 93971; 99284; 96372 ×2; J2270; J1885

== ENCOUNTER 2023-06-22 13:45 | Inpatient (IN) | payer OTHER ==
[2023-07-06] MEDS ORDERED: ENOXAPARIN 40 MG/0.4 ML SYRINGE SQ PRN (05:00)
[2023-07-06] MEDS ORDERED: ceFAZolin 3 GM in SODIUM CHLORIDE 0.9% 100 ML IVPB PRN (05:00)
[2023-07-06] MEDS ORDERED: ALVIMOPAN 12 MG CAPSULE PO PRN (05:00)
[2023-07-06] MEDS ORDERED: ACETAMINOPHEN TAB 500 MG TAB PO PRN (05:00)
[2023-07-06] MEDS ORDERED: ONDANSETRON 4 MG/2 ML VIAL IVP PRN (05:00)
[2023-07-06] MEDS ORDERED: CHLORHEXIDINE GLUCONATE 15 ML CUP MUCOUS MEM PRN (07:00)
[2023-07-06] MEDS ORDERED: PANTOPRAZOLE 40 MG/10 ML VIAL IVP PRN (07:00)
[2023-07-06] MEDS ORDERED: droPERidol 5 MG/2 ML VIAL IVP ONE (08:49)
[2023-07-06] MEDS ORDERED: SCOPOLAMINE 1 MG/72 HR PATCH TRANSDERM STA (08:49)
--- NOTE | 2023-07-06 08:49 | P.GSHP ---
History of Present Illness H&P Date: 07/06/23 CHIEF COMPLAINT: Morbid obesity HISTORY OF PRESENT ILLNESS: Jose Juan Crisostomo is a 43-year-old male who comes with morbid obesity. As a result of his morbid obesity, he has hypertensive heart disease. He is looking into the sleeve gastrectomy. He has completed medical supervised weight loss, cardiac risk assessment, psychological assessment and medical risk assessment. At height of 6 feet 1 inches, ideal body weight is 188 pounds. His highest weight is 409 pounds, body mass index 54.1. He is 221 pounds overweight PAST MEDICAL HISTORY: 1. Morbid obesity due to excess calories, BMI 47.4 2. Atrial fibrillation 3. Hyperlipidemia 4. Gastroesophageal reflux disease 5. Hypertensive heart disease 6. Depressive disorder 7. Coronary artery disease 8. History of hypercoagulable disorder, MTHFR 9. Deep venous thrombosis 10. Myocardial infarction PAST SURGICAL HISTORY: 1. Cardiac catheterization HOME MEDICATIONS: Home Medications Medication Instructions Recorded Confirmed Apixaban [Eliquis] 5 mg PO BID 01/06/22 05/21/22 Atorvastatin [Lipitor] 20 mg PO DAILY 01/06/22 05/21/22 Esomeprazole Magnesium 40 mg PO DAILY 01/06/22 05/21/22 Vortioxetine Hydrobromide 20 mg PO DAILY 01/06/22 05/21/22 [Trintellix] dilTIAZem HCL [dilTIAZem HCL 24Hr 240 mg PO DAILY 01/06/22 05/21/22 ER (Xr)] hydroCHLOROthiazide [Hydrodiuril] 25 mg PO DAILY 01/06/22 05/21/22 lisinopriL 40 mg PO DAILY 01/06/22 05/21/22 Mirtazapine [Remeron] 15 mg PO HS PRN 01/13/22 05/21/22 busPIRone HCL 15 mg PO BID 01/13/22 05/21/22 hydrOXYzine HCL [Atarax] 50 mg PO TID 01/13/22 05/21/22 Previous Rx's Medication Instructions Recorded Aspirin 81 mg PO DAILY chew 01/31/16 Metoprolol Tartrate [Lopressor] 12.5 mg PO BID 30 Days #60 tab 01/14/22 amLODIPine [Norvasc] 5 mg PO BID 30 Days #60 tab 01/14/22 ALLERGIES: Allergies Allergy/AdvReac Type Severity Reaction Status Date / Time No Known Allergies Allergy Verified 05/05/22 07:29 SOCIAL HISTORY: Denies tobacco use. FAMILY HISTORY: No family history of ulcerative colitis disease or Crohn's disease. Family history of morbid obesity. No lupus in the family. No reports of stomach or esophageal cancer. REVIEW OF ORGAN SYSTEMS: CONSTITUTIONAL: At height of 6 feet 1 inches, ideal body weight is 188 pounds. His highest weight is 409 pounds, body mass index 54.1. He is 221 pounds overweight HEENT: Denies any active troubles with vision or hearing. ENDOCRINE: Denies diabetes. Denies hypothyroidism. CARDIOVASCULAR: History of myocardial infarction. History of cardiac catheterization. RESPIRATORY: Has daytime somnolence and snores. GASTROINTESTINAL: Denies any bright red blood per rectum. No diarrhea. No constipation. Has gastroesophageal reflux disease. GENITOURINARY: Denies bladder urgency. No recent blood in urine MUSCULOSKELETAL: Has lower back pain and joint pain. NEURO: Denies migraines. No seizure disorders. PSYCH: Has depression. No suicidal ideation. RHEUMATOLOGIC: No lupus. No rheumatoid arthritis. HEMATOLOGIC: Has hypercoagulable state. with MTHFR gene. SKIN: No rash. No skin cancer. PHYSICAL EXAM: VITAL SIGNS: Height 6 foot 1 inches, weight 409 pounds. BMI 54.1 GENERAL: Well-developed in no acute distress. HEENT: No scleral icterus. Extraocular movements grossly intact. Hears conversational speech. No nasal drainage. NECK: Supple without lymphadenopathy. CHEST: Nonlabored respirations with equal bilateral excursions. CARDIOVASCULAR: Regular rate and regular rhythm. Distal 2+ pulses. ABDOMEN: Obese, soft, nontender, nondistended. MUSCULOSKELETAL: No clubbing, cyanosis. NEURO: No focal or lateralizing signs. Cranial nerves 2 through 12 grossly within normal limits. PSYCH: Appropriate affect. Alert and oriented to person, place and time. SKIN: Good skin turgor. Well perfused. ASSESSMENT: 1. Morbid obesity due to excess calories, BMI 54.1 2. Atrial fibrillation 3. Hyperlipidemia 4. Gastroesophageal reflux disease 5. Hypertensive heart disease 6. Depressive disorder 7. Coronary artery disease 8. History of hypercoagulable disorder, MTHFR 9. Deep venous thrombosis 10. Myocardial infarction 11. Phosphorus low 12. Vitamin D deficiency 13. Hypertriglyceridemia 14. Abnormal EKG PLAN: 1. Bariatric options between a sleeve, band and a Sedrick-en-Y gastric bypass were reviewed in detail. The patient elected for a sleeve gastrectomy. Robotic assisted approach described. 2. The [place] [facility] Data was also reviewed with benefits and risks as described. 3. An 8 page second-generation bariatric consent form was reviewed in detail including potential of bleeding, infection, leaks, adequate weight loss, nutritional deficiencies which the patient demonstrated understanding of the risks. 4. A 2 week high-protein low caloric 800 kcal diet described to address hepatomegaly. 5. Preoperative labs including complete metabolic panel and CBC with type and screen recommended. 6. DVT prophylaxis per [place] [facility]. 7. Antibiotic prophylaxis. 8. Inpatient hospitalization anticipated for more than 2 nights. 9. All questions and concerns were addressed with the patient. 10. The patient is at elevated risk for perioperative complications with sleep apnea and hypertensive heart disease. 11. Overall, patient has expressed understanding of bariatric care including postoperative diet and commitment of lifestyle. Patient should benefit from surgical intervention for correction of morbid obesity. 12. He is elevated risk due to pre-existing comorbid conditions Past Medical History Past Medical History: Atrial Fibrillation, Asthma, Blood Disorder, Deep Vein Thrombosis (DVT), GERD/Reflux, Hearing Disorder / Deafness, Hypertension, Myocardial Infarction (AL), Sleep Apnea/CPAP/BIPAP Additional Past Medical History / Comment(s): DVT X 3- LAST TIME 2012- LT LEG, LUMBAR DDD- . HAS HX MTHFR GENE MUTATION-POSITIVE FOR HETEROZYGOUS PER DR. FRANCISCO'S OFFICE, supposed to use CPAP, chronic swelling left lower leg, this surg. rescheduled a few times Last Myocardial Infarction Date:: 09/2021 History of Any Multi-Drug Resistant Organisms: None Reported Past Surgical History: Cardiac Ablation, Heart Catheterization, Joint Replacement Additional Past Surgical History / Comment(s): LEFT KNEE REPLACEMENT, LT INDEX JOINT REPLACEMENT, PAIN CLINIC PROCEDURES, COLONOSCOPY, EGD Past Anesthesia/Blood Transfusion Reactions: Previous Problems w/ Anesthesia, Family History of Problems w/ Anesthesia, Motion Sickness Additional Past Anesthesia/Blood Transfusion Reaction / Comment(s): HARD TO PUT TO SLEEP-(pt and father)-needs more than normal Past Psychological History: Depression Smoking Status: Never smoker Past Alcohol Use History: Occasional Additional Past Alcohol Use History / Comment(s): . Past Drug Use History: None Reported Additional Drug Use History / Comment(s): . - Past Family History Sister(s) Family Medical History: Cancer Additional Family Medical History / Comment(s): Skin cancer. Mother History Unknown: Yes Medications and Allergies Home Medications Medication Instructions Recorded Confirmed Type Apixaban [Eliquis] 5 mg PO BID 01/06/22 06/30/23 History Esomeprazole Magnesium 40 mg PO DAILY 01/06/22 06/30/23 History Bumetanide [BUMEX] 2 mg PO BID 03/27/23 06/30/23 History Metoprolol Tartrate [Lopressor] 25 mg PO BID 03/27/23 06/30/23 History Spironolactone [Aldactone] 50 mg PO DAILY 03/27/23 06/30/23 History Venlafaxine HCl [Effexor XR] 187.5 mg PO QAM 03/27/23 06/30/23 History Cholecalciferol [Vitamin D3 (25 25 mcg PO BID 04/22/23 06/30/23 History Mcg = 1000 Iu)] Multivit with Calcium,Iron,Min 1 each PO DAILY 04/22/23 06/30/23 History [Women's Multivitamin] hydroCHLOROthiazide [Hydrodiuril] 25 mg PO DAILY 04/22/23 06/30/23 History Albuterol Inhaler [Ventolin Hfa 1 - 2 puff INHALATION Q6H PRN 06/11/23 06/30/23 History Inhaler] Allergies Allergy/AdvReac Type Severity Reaction Status Date / Time No Known Allergies Allergy Verified 06/30/23 15:25
[2023-07-06] MEDS ORDERED: DEXAMETHASONE SOD PHOSPHATE 4 MG/ML 1 ML VIAL IV ONE (10:03)
[2023-07-06] MEDS ORDERED: ONDANSETRON 4 MG/2 ML VIAL IVP ONE (10:03)
[2023-07-06] MEDS: LACTATED RINGERS 1,000 ML IV SCH (10:33)
[2023-07-06 12:06] LABS: Basophils % (A) 0 %; Eosinophils # (A) 0.1 k/uL (0-0.7); Eosinophils % (A) 1 %; HCT 42.7 % (39.0-53.0); HGB 13.9 gm/dL (13.0-17.5); Lymphocytes # (A) 1.9 k/uL (1.0-4.8); Lymphocytes % (A) 16 %; MCH 26.7 pg (25.0-35.0); MCHC 32.6 g/dL (31.0-37.0); Mean Platelet Volume 6.9; Monocytes # (A) 0.8 k/uL (0-1.0); Monocytes % (A) 6 %; Neutrophils # (A) 9.5 k/uL (1.3-7.7); Neutrophils % (A) 77 %; Platelet Count 374 k/uL (150-450); RBC 5.21 m/uL (4.30-5.90); RDW 14.8 % (11.5-15.5); WBC 12.4 k/uL (3.8-10.6)
[2023-07-06] MEDS ORDERED: LIDOCAINE 2% INJ 20 MG/ML (2 ML VIAL) ONE (12:16)
[2023-07-06] MEDS ORDERED: ROCURONIUM 10 MG/ML (5 ML VIAL) IV ONE (12:16)
[2023-07-06] MEDS ORDERED: NEOSTIGMINE 1 MG/ML 10 ML VIAL ONE (12:16)
[2023-07-06] MEDS ORDERED: HYDROmorphone (PF) 1 MG/ML ONE (12:16)
[2023-07-06] MEDS ORDERED: ONDANSETRON 4 MG/2 ML VIAL ONE (12:16)
[2023-07-06] MEDS ORDERED: PROPOFOL 10 MG/ML 20 ML VIAL IV ONE (12:16)
[2023-07-06] MEDS ORDERED: GLYCOPYRROLATE 0.2 MG/ML 2 ML VIAL ONE (12:16)
[2023-07-06] MEDS ORDERED: MIDAZOLAM 2 MG/2 ML VIAL ONE (12:16)
[2023-07-06] MEDS ORDERED: KETAMINE 10 MG/ML 20 ML VIAL ONE (12:16)
[2023-07-06] MEDS ORDERED: SUCCINYLCHOLINE CHLORIDE 200 MG/10 ML VIAL IV ONE (12:16)
[2023-07-06] MEDS ORDERED: fentaNYL (PF) 50 MCG/ML 2 ML AMP ONE (12:16)
[2023-07-06 12:25] LABS: ALT 23 U/L (4-49); AST 20 U/L (17-59); African American GFR (CKD) >90 (>60 ml/min/1.73 sqM); Alkaline Phosphatase 78 U/L (38-126); Anion Gap 9 mmol/L; Blood Urea Nitrogen 27 mg/dL (9-20); Calcium 9.4 mg/dL (8.4-10.2); Carbon Dioxide 36 mmol/L (22-30); Chloride 87 mmol/L (98-107); Glucose 126 mg/dL (74-99); Non-African American GFR(CKD) >90 (>60 ml/min/1.73 sqM); Potassium 3.8 mmol/L (3.5-5.1); Sodium 132 mmol/L (137-145); Total Bilirubin 0.6 mg/dL (0.2-1.3); Total Protein 6.7 g/dL (6.3-8.2)
[2023-07-06] MEDS ORDERED: LIDOCAINE 0.5%-EPI 1:200,000 50 ML VIAL SQ ONE (13:06)
[2023-07-06] MEDS ORDERED: LACTATED RINGERS 1,000 ML IV ONE (13:52)
[2023-07-06] MEDS: HYDROmorphone 0.5 MG/0.5 ML SYRINGE IVP PRN ×3 (15:17→17:03)
[2023-07-06] MEDS ORDERED: NALOXONE 0.4 MG/ML 1 ML VIAL IV PRN (15:40)
[2023-07-06] MEDS ORDERED: diphenhydrAMINE 50 MG/ML 1 ML VIAL IVP PRN (15:40)
[2023-07-06] MEDS: SIMETHICONE 80 MG CHEWABLE PO SCH ×2 (16:00→20:51)
[2023-07-06] MEDS: HYDROmorphone 1 MG/ML 1 ML SYRINGE IVP PRN ×2 (18:27→21:10)
[2023-07-06] MEDS: ACETAMINOPHEN IV (For NPO) 1,000 MG in EMPTY BAG 1 BAG IVPB SCH (18:27)
[2023-07-06] MEDS: 0.9% NACL WITH KCL 20 MEQ/L 1,000 ML IV SCH (19:53)
[2023-07-06] MEDS ORDERED: ceFAZolin 3 GM in SODIUM CHLORIDE 0.9% 100 ML IVPB SCH (20:00)
[2023-07-06] MEDS: ONDANSETRON 4 MG/2 ML VIAL IVP SCH (20:46)
[2023-07-06] MEDS: METOPROLOL TARTRATE 25 MG TAB PO SCH (20:51)
[2023-07-06] MEDS: PANTOPRAZOLE 40 MG/10 ML VIAL IV SCH (20:51)
[2023-07-06] MEDS: ALBUTEROL NEBULIZED 2.5 MG/3 ML INHALATION SCH (21:51)
[2023-07-07] MEDS: ONDANSETRON 4 MG/2 ML VIAL IVP SCH ×4 (00:07→18:11)
[2023-07-07] MEDS: ACETAMINOPHEN IV (For NPO) 1,000 MG in EMPTY BAG 1 BAG IVPB SCH ×3 (00:07→12:05)
[2023-07-07] MEDS: SIMETHICONE 80 MG CHEWABLE PO SCH ×4 (00:08→18:11)
[2023-07-07] MEDS: HYDROmorphone 1 MG/ML 1 ML SYRINGE IVP PRN ×7 (00:45→21:05)
[2023-07-07] MEDS: 0.9% NACL WITH KCL 20 MEQ/L 1,000 ML IV SCH ×3 (01:38→19:35)
[2023-07-07 06:02] LABS: Basophils % (A) 0 %; Eosinophils # (A) 0.2 k/uL (0-0.7); Eosinophils % (A) 2 %; HCT 41.5 % (39.0-53.0); HGB 13.2 gm/dL (13.0-17.5); Hypochromasia Slight; Lymphocytes % (A) 7 %; MCH 26.3 pg (25.0-35.0); MCHC 31.9 g/dL (31.0-37.0); MCV 82.7 fL (80.0-100.0); Mean Platelet Volume 6.7; Monocytes # (A) 0.8 k/uL (0-1.0); Monocytes % (A) 5 %; Neutrophils % (A) 85 %; Platelet Count 368 k/uL (150-450); RBC 5.01 m/uL (4.30-5.90); RDW 14.8 % (11.5-15.5); WBC 15.2 k/uL (3.8-10.6)
[2023-07-07 06:13] LABS: African American GFR (CKD) >90 (>60 ml/min/1.73 sqM); Anion Gap 6 mmol/L; Blood Urea Nitrogen 22 mg/dL (9-20); Calcium 8.9 mg/dL (8.4-10.2); Carbon Dioxide 31 mmol/L (22-30); Chloride 94 mmol/L (98-107); Magnesium 2.1 mg/dL (1.6-2.3); Non-African American GFR(CKD) >90 (>60 ml/min/1.73 sqM); Phosphorus 3.6 mg/dL (2.5-4.5); Potassium 4.1 mmol/L (3.5-5.1); Sodium 131 mmol/L (137-145)
[2023-07-07] MEDS: ENOXAPARIN 40 MG/0.4 ML SYRINGE SQ SCH (08:02)
[2023-07-07] MEDS: METOPROLOL TARTRATE 25 MG TAB PO SCH ×2 (08:03→21:05)
[2023-07-07] MEDS: PANTOPRAZOLE 40 MG/10 ML VIAL IV SCH ×2 (08:03→21:04)
[2023-07-07] MEDS: ALBUTEROL NEBULIZED 2.5 MG/3 ML INHALATION SCH ×4 (08:18→20:54)
--- NOTE | 2023-07-07 11:18 | FL ---
EXAMINATION TYPE: FL UGI DATE OF EXAM: 07/07/2023 CLINICAL HISTORY: Status post gastric sleeve Contrast: Omnipaque 350 50 mL The patient ingested contrast without difficulty or delay. Noted are postsurgical changes of gastric sleeve. There is no evidence for leak or obstruction. Contrast is noted within the duodenum. IMPRESSION: Post-surgical change of gastric sleeve without evidence for obstruction or leak at this point in time.
[2023-07-07] MEDS: LACTATED RINGERS 1,000 ML IV SCH (12:00)
[2023-07-07 13:07] VITALS: BMI 49.1
--- NOTE | 2023-07-07 15:12 | P.DS ---
Providers Date of admission: 07/06/23 10:01 Expected date of discharge: 07/07/23 Attending physician: Lo Sun Primary care physician: Aden Diaz MD Hospital Course: Discharge diagnosis 1. Morbid obesity due to excess calories, BMI 54.1 2. Atrial fibrillation 3. Hyperlipidemia 4. Gastroesophageal reflux disease 5. Hypertensive heart disease 6. Depressive disorder 7. Coronary artery disease 8. History of hypercoagulable disorder, MTHFR 9. Deep venous thrombosis 10. Myocardial infarction 11. Phosphorus low 12. Vitamin D deficiency 13. Hypertriglyceridemia 14. Abnormal EKG 15. Leukocytosis likely secondary to steroids Hospital course This is a 43-year-old male with a history of morbid obesity. He is status post Robotic laparoscopic sleeve gastrectomy. Patient tolerated surgery well. Pain is controlled. Upper GI shows no evidence of leak or obstruction. He is tolerating diet. He's having flatus. He has been up and ambulating. He is stable for discharge. Physician Employee Benefits Administrator note has been reviewed by physician. Signing provider agrees with the documented findings, assessment, and plan of care. Patient Condition at Discharge: Stable Plan - Discharge Summary Discharge Rx Participant: Yes New Discharge Prescriptions: New Acetaminophen Tab [Tylenol] 1,000 mg PO Q6HR PRN #30 tablet PRN Reason: Pain Ondansetron Odt [Zofran Odt] 4 mg PO Q8HR PRN #9 tab PRN Reason: Nausea bisacodyL [Dulcolax] 5 mg PO DAILY PRN #10 tab PRN Reason: Constipation Simethicone 40 mg/0.6 ml Drops [Mylicon Drops] 40 mg PO PCHS PRN #30 ml PRN Reason: Gas Continue Esomeprazole Magnesium 40 mg PO DAILY Venlafaxine HCl [Effexor XR] 187.5 mg PO QAM Metoprolol Tartrate [Lopressor] 25 mg PO BID Albuterol Inhaler [Ventolin Hfa Inhaler] 1 - 2 puff INHALATION Q6H PRN PRN Reason: Shortness Of Breath Discontinued Bumetanide [BUMEX] 2 mg PO BID Multivit with Calcium,Iron,Min [Women's Multivitamin] 1 each PO DAILY Apixaban [Eliquis] 5 mg PO BID Spironolactone [Aldactone] 50 mg PO DAILY Cholecalciferol [Vitamin D3 (25 Mcg = 1000 Iu)] 25 mcg PO BID hydroCHLOROthiazide [Hydrodiuril] 25 mg PO DAILY Discharge Medication List Esomeprazole Magnesium 40 mg PO DAILY 01/06/22 [History] Metoprolol Tartrate [Lopressor] 25 mg PO BID 03/27/23 [History] Venlafaxine HCl [Effexor XR] 187.5 mg PO QAM 03/27/23 [History] Albuterol Inhaler [Ventolin Hfa Inhaler] 1 - 2 puff INHALATION Q6H PRN 06/11/23 [History] Acetaminophen Tab [Tylenol] 1,000 mg PO Q6HR PRN #30 tablet 07/07/23 [Rx] Ondansetron Odt [Zofran Odt] 4 mg PO Q8HR PRN #9 tab 07/07/23 [Rx] Simethicone 40 mg/0.6 ml Drops [Mylicon Drops] 40 mg PO PCHS PRN #30 ml 07/07/23 [Rx] bisacodyL [Dulcolax] 5 mg PO DAILY PRN #10 tab 07/07/23 [Rx] Follow up [facility]ment[facility] [place] [facility] - 07/10/23 9:00 am Patient Instructions/Handouts: *Surgery [facility] - Scopalamine Patch Instructions, Nutrition after Bariatric Surgery (DC), Nutrition after Bariatric Surgery (GEN), Laparoscopic Sleeve Gastrectomy (DC), Laparoscopic Sleeve Gastrectomy (GEN) Activity/Diet/Wound Care/Special Instructions: Liquid diet only for 2 weeks No lifting over 4 pounds in 4 weeks May Shower. No soaking in bath tubs for 2 weeks Please notify your surgeon if you develop nausea and vomiting including new onset of abdominal pain. Continue to use incentive spirometry to prevent pneumonias. Please continue to ambulate at home to prevent blood clots in legs. Follow-up at the bariatric center. May shower. Dressings to be discontinued by surgeon in the office. Drink 64 oz of fluid daily. Start protein shakes on . Notify bariatric center for temp over 101.0, increased pain, drainage from incisions. No straws or carbonated beverages. Liquid diet only. Sugar content should be less than 6 g to avoid dumping syndrome. Take MOM for constipation. CRUSH, OPEN, OR CUT TABLETS LARGER THAN A SIZE OF A TIC TAC Discharge Disposition: HOME SELF-CARE
[2023-07-07] MEDS ORDERED: TRIMETHOBENZAMIDE 100 MG/ML 2 ML VIAL IM PRN (18:42)
[2023-07-07] MEDS ORDERED: DEXAMETHASONE SOD PHOSPHATE 10 MG/ML 1 ML VIAL IVP STA (18:42)
[2023-07-07] MEDS ORDERED: SODIUM CHLORIDE 0.9% 2,000 ML IV ONE (18:42)
[2023-07-08] MEDS: ONDANSETRON 4 MG/2 ML VIAL IVP SCH ×3 (00:29→12:21)
[2023-07-08] MEDS: HYDROmorphone 1 MG/ML 1 ML SYRINGE IVP PRN ×4 (01:07→11:12)
[2023-07-08 02:28] VITALS: RESP 18
[2023-07-08] MEDS: 0.9% NACL WITH KCL 20 MEQ/L 1,000 ML IV SCH ×2 (03:44→11:11)
[2023-07-08] MEDS: SIMETHICONE 80 MG CHEWABLE PO SCH ×2 (06:23→12:21)
[2023-07-08 07:51] VITALS: BP 125/70; PULSE 108; TEMP 98
[2023-07-08] MEDS ORDERED: bisacodyL 5 MG TABLET.DR PO PRN (08:00)
[2023-07-08] MEDS: ENOXAPARIN 40 MG/0.4 ML SYRINGE SQ SCH (08:07)
[2023-07-08] MEDS: METOPROLOL TARTRATE 25 MG TAB PO SCH (08:07)
[2023-07-08] MEDS: PANTOPRAZOLE 40 MG/10 ML VIAL IV SCH (08:07)
[2023-07-08] MEDS: ALBUTEROL NEBULIZED 2.5 MG/3 ML INHALATION SCH ×2 (08:51→11:37)
[2023-07-08] MEDS: LACTATED RINGERS 1,000 ML IV SCH (09:47)
--- NOTE | 2023-07-22 21:36 | P.OP ---
Date of Procedure: 07/06/23 Description of Procedure: SURGEON: [place] FERRARA MD PREOPERATIVE DIAGNOSES: 1. Morbid obesity due to excess calories, BMI 54.1 2. Atrial fibrillation 3. Hyperlipidemia 4. Gastroesophageal reflux disease 5. Hypertensive heart disease 6. Depressive disorder 7. Coronary artery disease 8. History of hypercoagulable disorder, MTHFR 9. Deep venous thrombosis 10. Myocardial infarction 11. Phosphorus low 12. Vitamin D deficiency 13. Hypertriglyceridemia 14. Abnormal EKG POSTOPERATIVE DIAGNOSES: 1. Morbid obesity due to excess calories, BMI 54.1 2. Atrial fibrillation 3. Hyperlipidemia 4. Gastroesophageal reflux disease 5. Hypertensive heart disease 6. Depressive disorder 7. Coronary artery disease 8. History of hypercoagulable disorder, MTHFR 9. Deep venous thrombosis 10. Myocardial infarction 11. Phosphorus low 12. Vitamin D deficiency 13. Hypertriglyceridemia 14. Abnormal EKG OPERATION: 1. Robotic assisted daVinci Xi laparoscopic sleeve gastrectomy with 40-Chilean bougie, multiport. 2. Intraoperative esophagogastroduodenoscopy. ANESTHESIA: Gen. local anesthetic ESTIMATED BLOOD LOSS: 5 mL SPECIMENS REMOVED: Sleeve gastrectomy COMPLICATIONS: None. FINDINGS: 1. Negative intraoperative esophagogastrojejunoscopy leak test. 2. No large hiatus hernia. 3. Total of 8 staplers used including 2 - 60 mm black, 3 - 60 mm green, 3 - 60 mm blue robot emir used to create the gastric sleeve. 4. Sleeve gastrectomy 38 x 6 cm INDICATIONS: Jose Juan Crisostomo is a 43-year-old male who comes with morbid obesity. As a result of his morbid obesity, he has hypertensive heart disease. He is looking into the sleeve gastrectomy. He has completed medical supervised weight loss, cardiac risk assessment, psychological assessment and medical risk assessment. At height of 6 feet 1 inches, ideal body weight is 188 pounds. His highest weight is 409 pounds, body mass index 54.1. He is 221 pounds overweight All surgical options for morbid obesity had been described using the [place] [facility] collaborative comorbidity resolution including complication risk score. A second-generation bariatric consent form was described in detail including the possibility of protein malnutrition, leaks, gastric stricture, venous thrombosis, gastroesophageal reflux disease, need for further surgery for which he demonstrated understanding. Benefits and risks of the procedure were described at length. Informed consent was obtained. DESCRIPTION: The patient was brought into the operating room theater. Preoperatively he had received Lovenox subcutaneously for DVT prophylaxis. Additionally he had Peridex oral solution as an oral decontaminant. After general induction, the abdomen was prepped and draped in standard sterile fashion. An Ioban draping was placed along the abdomen. No rashid catheter was placed. A robotic da Dae Xi system was prepped and primed. At 15 cm from the xiphoid, proposed port sites were marked with indelible marker along the anterior axillary line bilaterally, mid axillary line bilaterally with each ports were marked 10 to 15 cm from each other. The registrar assistant port was marked along the left lateral abdominal wall. The robotic stapler port was marked for the right midclavicular line. A 5 mm 0 degrees laparoscopic trocar entry was performed along the left upper quadrant. The abdomen was insufflated to 15 mmHg pressure he tolerated well. Diagnostic laparoscopy demonstrated no injury to bowel, viscera, or mesentery. The liver surface was remarkable for fatty liver disease. No injury had occurred to the small bowel or viscera. Along the hiatus no recurrent hiatal hernia was found. A 8 mm port was placed along the right upper abdominal wall after exchanging the 5 mm port. A separate 8 mm port was placed along the left lateral abdominal wall. Please note that the ports were placed at least 20 cm away from the target anatomy. Care was taken to check each robotic arms were safely away from collision with the bed or the patient. At the epigastrium, a medium sized Lio liver retractor was placed under direct visualization with the [employer] Equipment Mechanic placed under the right shoulder of the patient. Next, 12-mm robot stapler port was placed along the right upper quadrant. The camera 8-mm port was maintained along the epigastrium. The patient was repositioned in reverse Trendelenburg position at 21-degrees after lowering the bed. The robot was docked along the left side of the patient. Using a grasper for arm 4, a veseel sealer for arm 3, including grasper for arm 1, the robotic system was docked and primed as described. Instruments were interchanged by the registrar assistant for stapler loads. The camera was placed at 30-degrees down. I had sat at the console. The pylorus was identified and 6 cm proximally along the greater curvature of the stomach, the short gastrics were mobilized upwards to the angle of His using a vessel sealer. Hemostasis was excellent during this portion of the procedure. Next, the upper pole of the stomach was adherent to the left ovidio, which was gently dissected free using atraumatic grasper. The nursing glass cut off tender placed a 40-Chilean blunted tip bougie into the stomach. Robotic stapler black, green and blue loads 60 mm x 8 were used to create the sleeve. Initial firing was across the antrum of the stomach towards the angle of [facility]. The staple line was completely hemostatic and linear without corkscrewing. Hemostasis was excellent. The space from the angularis incisura of the sleeve was approximately 4 cm. I then went to the head of the bed to perform the intraoperative esophagogastroduodenoscopy leak test. The upper pole of the stomach was bathed using normal saline solution. The scope was withdrawn with careful inspection along the staple line for which no leaks were found along the entire length. Additionally, the sleeve was completely hemostatic without any encroachment along the angularis incisura. Its topology was a soft "J". No stricture was encountered upon placement of the scope. The GI tract was desufflated. The patient tolerated this portion of the procedure well. The scope was completely withdrawn. The robot was undocked. I then rescrubbed into case, whereby the irrigation fluid was aspirated from the abdominal cavity. Tisseel fibrin sealant was placed along the staple length. Once dried the Lio liver retractor was removed. Attention was now brought to removal of the specimen. The distal end of the sleeve gastrectomy specimen was brought out through the 12 mm port at the left upper quadrant. The specimen was gently removed en total, corresponding to 38 cm x 6 cm sleeve gastrectomy specimen. No contamination had occurred during this process. All instruments and pneumoperitoneum including irrigation fluid was removed from the abdominal cavity. The 12 mm port site was irrigated with warm normal saline solution and diluted hydron peroxide. The 12-mm port site was reapproximated using 0 Vicryl and Jomar-Adelita of the left upper quadrant. The final incisions were closed using subcuticular interrupted suture of 4-0 Monocryl. Dermabond was applied to the skin once the skin had been cleansed. OptiFoam dressing was placed along the stomach extraction site. At the end of the procedure, needle, sponge, and instrument count was verified correct by the surgical services manager. The patient was taken to the postanesthesia care unit in stable condition. He had tolerated the procedure well. Intraoperative films and findings were reviewed with the patient's family.
== END 2023-07-08 14:35 | disposition home or self-care (01) | DRG 403 ==
LOC: 2ORMAIN 07-06 10:01 → 4SSUR 07-06 17:54
PROVIDERS: ADMIT Surgery Plastic and Reconstructive Surgery; ATTEND Surgery Plastic and Reconstructive Surgery
PROC: 0D768ZZ Dilation of Stomach, Via Natural or Artificial Opening Endoscopic (ICD-10-PCS; 2023-07-06)
PROC: 8E0W4CZ Robotic Assisted Procedure of Trunk Region, Percutaneous Endoscopic Approach (ICD-10-PCS; 2023-07-06)
PROC: 0DB64Z3 Excision of Stomach, Percutaneous Endoscopic Approach, Vertical (ICD-10-PCS; principal; 2023-07-06 11:15)
DX: E66.01 Morbid (severe) obesity due to excess calories (principal); E72.12 Methylenetetrahydrofolate reductase deficiency; Z68.43 Body mass index [BMI] 50.0-59.9, adult; I48.91 Unspecified atrial fibrillation; I11.9 Hypertensive heart disease without heart failure; F32.A Depression, unspecified; J45.909 Unspecified asthma, uncomplicated; E78.5 Hyperlipidemia, unspecified; H91.90 Unspecified hearing loss, unspecified ear; K21.9 Gastro-esophageal reflux disease without esophagitis; I25.10 Atherosclerotic heart disease of native coronary artery without angina pectoris; I25.2 Old myocardial infarction; E55.9 Vitamin D deficiency, unspecified; T38.0X5A Adverse effect of glucocorticoids and synthetic analogues, initial encounter; E78.1 Pure hyperglyceridemia; D72.828 Other elevated white blood cell count; K76.0 Fatty (change of) liver, not elsewhere classified; M51.36 Other intervertebral disc degeneration, lumbar region; G47.30 Sleep apnea, unspecified; Z96.652 Presence of left artificial knee joint; Z96.692 Finger-joint replacement of left hand; Z86.718 Personal history of other venous thrombosis and embolism; Z79.82 Long term (current) use of aspirin; Z79.899 Other long term (current) drug therapy; Z79.01 Long term (current) use of anticoagulants
CPT/HCPCS: 74240; 80051; 80053; 82310; 82565; 83735; 84100; 84520; 85025; 86850; 86900; 86901; 88307; 94640; 94760

== ENCOUNTER → 2023-07-02 | Outpatient (CLI) | payer OTHER ==
[2023-07-02 15:22] LABS: ALT 23 U/L (10-49); AST 17 U/L (14-35); Albumin 4.2 d/dL (3.8-4.9); Alkaline Phosphatase 89 U/L (41-126); Blood Urea Nitrogen 10.7 mg/dL (9.0-27.0); Calcium 9.7 mg/dL (8.7-10.3); Carbon Dioxide 30.8 mmol/L (21.6-31.8); Chloride 99 mmol/L (96-109); Glucose 95 mg/dL (70-110); Potassium 4.8 mmol/L (3.5-5.5); Sodium 139 mmol/L (135-145); Total Bilirubin 0.3 mg/dL (0.3-1.2); Total Protein 6.2 d/dL (6.2-8.2)
[2023-07-02 17:59] LABS: Basophils # (A) 0.02 X 10*3/uL (0.00-0.10); Basophils % (A) 0.2 %; Eosinophils # (A) 0.19 X 10*3/uL (0.04-0.35); Eosinophils % (A) 1.9 %; HCT 43.8 % (39.6-50.0); HGB 13.3 d/dL (13.0-17.0); Lymphocytes # (A) 1.65 X 10*3/uL (0.90-5.00); Lymphocytes % (A) 16.9 %; MCH 26.2 pg (27.0-32.0); MCHC 30.4 d/dL (32.0-37.0); MCV 86.2 FL (80.0-97.0); Mean Platelet Volume 8.9 FL (9.5-12.2); Monocytes # (A) 0.62 X 10*3/uL (0.20-1.00); Monocytes % (A) 6.3 %; NRBC Per 100 WBC 0 X 10*3/uL (0.00-0.01); Neutrophils # (A) 7.24 X 10*3/uL (1.80-7.70); Neutrophils % (A) 74.2 %; Platelet Count 369 X 10*3/uL (140-440); RBC 5.08 X 10*6/uL (4.40-5.60); RDW 14.3 % (11.5-14.5); WBC 9.77 X 10*3/uL (4.50-10.00)
== END | disposition home or self-care (01) ==
LOC: LABPAT 10:58
PROVIDERS: ATTEND Surgery Plastic and Reconstructive Surgery
DX: Z01.812 Encounter for preprocedural laboratory examination (principal)
CPT/HCPCS: 80053; 85025

== ENCOUNTER → 2023-07-10 | Outpatient (CLI) | payer OTHER ==
[2023-07-10 09:30] VITALS: BP 120/76; PULSE 93; TEMP 98.1; BMI 47.9
--- NOTE | 2023-07-10 10:25 | P.BASOAP ---
Subjective Progress Note Date: 07/10/23 Patient is status post sleeve gastrectomy. Comes in with erythema of the conjunctiva. No signs of infection. Recommend start blood thinner Thursday. Additionally, using Benadryl scheduled for the next 48 hours advised. Caution with stimulants for pre-existing heart disease. Antibacterial soap and hydroperoxide for wound care. May start protein shakes. Overall doing very well. Objective - Vital Signs Vital signs: Vital Signs Temp 98.1 F 07/10/23 09:26 Pulse 93 07/10/23 09:26 Resp BP 120/76 07/10/23 09:26 Pulse Ox FiO2 Intake & Output 07/09/23 07/10/23 07/10/23 18:59 06:59 18:59 Weight 164.654 kg Assessment/Plan Plan: Date: 07/10/23 Initial Weight: Initial BMI: Current Weight: 164.654 kg Current BMI: 47.9 Type of Surgery: Total Volume in Band: Previous Volume: Volume Removed: Volume Added: Band Size:
== END ==
LOC: BARWHC3 08:56
PROVIDERS: ATTEND Surgery Plastic and Reconstructive Surgery
DX: Z53.9 Procedure and treatment not carried out, unspecified reason (principal)
CPT/HCPCS: 99211

== ENCOUNTER → 2023-07-15 | Outpatient (CLI) | payer OTHER ==
[2023-07-15 15:16] VITALS: PULSE 90; TEMP 98.1; BMI 49.8
[2023-07-15 15:18] VITALS: BP 97/66
== END ==
LOC: BARWHC3 15:02
PROVIDERS: ATTEND Surgery Plastic and Reconstructive Surgery
DX: E66.01 Morbid (severe) obesity due to excess calories (principal); Z68.42 Body mass index [BMI] 45.0-49.9, adult; Z09 Encounter for follow-up examination after completed treatment for conditions other than malignant neoplasm; Z98.84 Bariatric surgery status
CPT/HCPCS: 97802; G0463; 99211

== ENCOUNTER → 2023-07-16 | Outpatient (CLI) | payer OTHER ==
[~2023-07-16] MED LIST changes: -LACTATED RINGERS 1,000 ML IV SCH; -LIDOCAINE 1% (10MG/ML) FOR IV START INTRADERMA PRN; +SODIUM CHLORIDE 0.9% 500 ML 500 ML in EMPTY BAG 1 BAG IV PRN
[2023-07-16 11:37] VITALS: BP 108/69; PULSE 94; RESP 16; TEMP 97.9
[2023-07-16] MEDS: SODIUM CHLORIDE 0.9% 1,000 ML IV NR ×2 (11:40→12:52)
== END ==
LOC: PROCWHC3 11:24
PROVIDERS: ATTEND Surgery Plastic and Reconstructive Surgery
DX: E86.0 Dehydration (principal)
CPT/HCPCS: 96360; 96361

== ENCOUNTER → 2023-07-20 | Outpatient (CLI) | payer OTHER ==
--- NOTE | 2023-07-20 10:25 | XR ---
EXAMINATION TYPE: XR sacroiliac joint comp BILAT DATE OF EXAM: 07/20/2023 COMPARISON: NONE HISTORY: M46.1 SACROILIITIS, NOT ELSEWHERE CLASSIFIED TECHNIQUE: 3 views of the sacroiliac joints are submitted. FINDINGS: There is mild narrowing and vacuum changes seen of the sacroiliac joints right greater than left. No evidence for abnormal widening or erosive change. No fracture or bony destructive process. 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
== END | disposition home or self-care (01) ==
LOC: RADXRMAIN 09:07
PROVIDERS: ATTEND Psychiatry & Neurology Pain Medicine
DX: M46.1 Sacroiliitis, not elsewhere classified (principal); M51.36 Other intervertebral disc degeneration, lumbar region
CPT/HCPCS: 72202

== ENCOUNTER → 2023-08-18 | Outpatient (CLI) | payer OTHER ==
--- NOTE | 2023-08-18 09:52 | MR ---
EXAMINATION TYPE: MR lumbar spine wo con DATE OF EXAM: 08/18/2023 COMPARISON: NONE HISTORY: Back pain TECHNIQUE: T1 and T2 axial and sagittal images of the lumbar spine are submitted. FINDINGS: There is no abnormal signal seen within the visualized spinal cord or paraspinal soft tissu es. At L1-2 there is no evidence of degenerative disc disease, disc herniation, canal stenosis or foramin al encroachment. At L2-3 there is no evidence of degenerative disc disease, disc herniation, canal stenosis or foramin al encroachment. At L3-4 there is no evidence of degenerative disc disease, disc herniation, canal stenosis or foramin al encroachment. Mild hypertrophic changes of the facet. At L4-5 there is facet arthropathy with no disc herniation or canal stenosis. No evidence of foramina l encroachment. At L5-S1 there is annular tear with facet arthropathy but no disc herniation or canal stenosis. Neuro foramina are patent. IMPRESSION: 1. Annular tear L5-S1 with no discrete herniation or canal stenosis. 2. No significant degenerative disc disease. 3. Facet arthropathy L4-5 and L5-S1.
== END | disposition home or self-care (01) ==
LOC: RADMRIMAIN 08:09
PROVIDERS: ATTEND Psychiatry & Neurology Neurology
DX: M47.817 Spondylosis without myelopathy or radiculopathy, lumbosacral region (principal); M51.87 Other intervertebral disc disorders, lumbosacral region
CPT/HCPCS: 72148

== ENCOUNTER → 2023-08-19 | Outpatient (CLI) | payer OTHER ==
[2023-08-19 14:19] VITALS: BP 129/81; PULSE 88; RESP 13; TEMP 97.9; BMI 48.2
--- NOTE | 2023-08-19 14:48 | P.BASOAP ---
Subjective Progress Note Date: 08/19/23 Highest weight 425 pounds. Increase protein 100 grams. Currently at 75 grams. REcommend labs. FU for After thanks giving. No GERD. Objective - Vital Signs Vital signs: Vital Signs Temp 97.9 F 08/19/23 14:14 Pulse 88 08/19/23 14:14 Resp 13 08/19/23 14:14 BP 129/81 08/19/23 14:14 Pulse Ox FiO2 Intake & Output 08/18/23 08/19/23 08/19/23 18:59 06:59 18:59 Weight 165.652 kg Assessment/Plan Plan: Date: 08/19/23 Initial Weight: Initial BMI: Current Weight: 165.652 kg Current BMI: 48.2 Type of Surgery: Total Volume in Band: Previous Volume: Volume Removed: Volume Added: Band Size:
== END ==
LOC: BARWHC3 08:29
PROVIDERS: ATTEND Surgery Plastic and Reconstructive Surgery
DX: E66.01 Morbid (severe) obesity due to excess calories (principal); Z68.42 Body mass index [BMI] 45.0-49.9, adult; Z71.3 Dietary counseling and surveillance
CPT/HCPCS: 97803; G0463; 99211

== ENCOUNTER → 2023-10-07 | Outpatient (CLI) | payer OTHER ==
--- NOTE | 2023-10-07 15:04 | P.BASOAP ---
Subjective Progress Note Date: 10/07/23 Was 420 pounds now 348 pounds. He has lost over 70 pounds. He wants to get 240 pounds. Got height of 6'1'.5. Plan for labs. He is getting moderate dizziness from his medications. Magnesium 400 mg at night. Metoprolol in the monring. Esophagram and EHD. US gallbladder. Objective - Vital Signs Vital signs: Vital Signs Temp 98.3 F 10/07/23 14:43 Pulse 101 H 10/07/23 14:43 Resp BP 113/75 10/07/23 14:43 Pulse Ox FiO2 Intake & Output 10/06/23 10/07/23 10/07/23 18:59 06:59 18:59 Weight 157.85 kg Assessment/Plan Plan: Date: 10/07/23 Initial Weight: Initial BMI: Current Weight: 157.85 kg Current BMI: 45.9 Type of Surgery: Total Volume in Band: Previous Volume: Volume Removed: Volume Added: Band Size:
[2023-10-07 15:14] VITALS: BP 113/75; PULSE 101; TEMP 98.3; BMI 45.9
== END ==
LOC: BARWHC3 13:53
PROVIDERS: ATTEND Surgery Plastic and Reconstructive Surgery
DX: Z53.9 Procedure and treatment not carried out, unspecified reason (principal)
CPT/HCPCS: 99211

== ENCOUNTER → 2023-10-27 | Outpatient (CLI) | payer OTHER ==
[2023-10-27 08:45] LABS: INR 0.9 (<1.2); Prothrombin Time 10.4 sec (10.0-12.5)
[2023-10-27 09:07] LABS: ALT 21 U/L (4-49); AST 21 U/L (17-59); African American GFR (CKD) >90 (>60 ml/min/1.73 sqM); Albumin 3.8 g/dL (3.5-5.0); Albumin/Globulin Ratio 1.6; Alkaline Phosphatase 84 U/L (38-126); Anion Gap 9 mmol/L; Blood Urea Nitrogen 21 mg/dL (9-20); Calcium 9.4 mg/dL (8.4-10.2); Carbon Dioxide 29 mmol/L (22-30); Chloride 100 mmol/L (98-107); Globulin 2.4 g/dL; Glucose 110 mg/dL (74-99); Magnesium 2.1 mg/dL (1.6-2.3); Non-African American GFR(CKD) >90 (>60 ml/min/1.73 sqM); Phosphorus 3.3 mg/dL (2.5-4.5); Potassium 4.2 mmol/L (3.5-5.1); Sodium 138 mmol/L (137-145); Total Bilirubin 0.6 mg/dL (0.2-1.3); Total Protein 6.2 g/dL (6.3-8.2)
[2023-10-27 10:54] LABS: HCT 41.9 % (39.6-50.0); HGB 13.3 g/dL (13.0-17.0); MCHC 31.7 g/dL (32.0-37.0); Mean Platelet Volume 8.9 FL (9.5-12.2); NRBC Per 100 WBC 0 X 10*3/uL (0.00-0.01); Platelet Count 275 X 10*3/uL (140-440); RBC 5.11 X 10*6/uL (4.40-5.60)
--- NOTE | 2023-10-27 15:30 | NM ---
EXAMINATION TYPE: NM hepatobiliary w EF DATE OF EXAM: 10/27/2023 COMPARISON: NONE CLINICAL INDICATION: Male, 43 years old with history of R10.11 RUQ pain; TECHNIQUE: After the intravenous administration of 5.0 mCi Tc 99m Mebrofenin hepatobiliary scintigrap hy is performed. Immediate images post injection. FINDINGS: There is satisfactory initial accumulation of tracer by the liver. The gallbladder is visualized wit hin 10 minutes. The small bowel activity is noted within 6 minutes. At one hour 8 ounces of oral en sure plus is given to mimic CCK and gallbladder ejection fraction is calculated at 72 %, upper limits of the normal range. IMPRESSION: No scintigraphic evidence for acute/chronic cholecystitis or biliary dyskinesia.
[2023-10-27 16:18] LABS: Prealbumin 27.8 mg/dL (18.0-42.0)
[2023-10-27 16:37] LABS: Chol/HDL Ratio 5.44 Ratio
[2023-10-27 16:38] LABS: % Iron Saturation 13.52 (15.00-50.00); Iron 43 UG/DL (65-175); LDL Cholesterol,Calculated 89.8 mg/dL (0.0-131.0); Total Iron Binding Capacity 318 UG/DL (228-460)
[2023-10-28 09:23] LABS: Zinc, Serum 50 ug/dL (60-130)
[2023-10-29 06:52] LABS: Vitamin A 80 ug/dL (38-106)
[2023-10-29 07:22] LABS: Vit B1(Thiamine) 80 ug/L (38-122)
== END | disposition home or self-care (01) ==
LOC: RADNMMAIN 06:58
PROVIDERS: ATTEND Surgery Plastic and Reconstructive Surgery
DX: R10.11 Right upper quadrant pain (principal); R13.10 Dysphagia, unspecified
CPT/HCPCS: 84255; 84134; 84425; 80061; 80053; 82607; 82728; 82525; 82746; 83540; 83550; 83735; 84100; 84443; 84590; 84630; 85027; 85610; 85730; 82306; 83970; 83036; 78226; A9537; 36415

== ENCOUNTER 2023-11-04 09:08 | Day surgery (SDC) | payer OTHER ==
[2023-10-29 13:02] VITALS: BMI 44.9
--- NOTE | 2023-11-04 07:47 | P.GSHP ---
History of Present Illness H&P Date: 11/04/23 CHIEF COMPLAINT: GERD HISTORY OF PRESENT ILLNESS: The patient is a 43-year-old male who presents reports gastroesophageal reflux disease. Upper endoscopy was offered for further evaluation and management. PAST MEDICAL HISTORY: Please see list. PAST SURGICAL HISTORY: Please see list. MEDICATIONS: Please see list. ALLERGIES: Please see list. SOCIAL HISTORY: No illicit drug use FAMILY HISTORY: No reports of Crohn disease or ulcerative colitis. REVIEW OF ORGAN SYSTEMS: CONSTITUTIONAL: No reports of fevers or chills. GI: Denies any blood in stools or constipation. PHYSICAL EXAM: VITAL SIGNS: Stable GENERAL: Well-developed and pleasant in no acute distress. HEENT: No scleral icterus. Extraocular movements grossly intact. Moist buccal mucosa. NECK: Supple without lymphadenopathy. CHEST: Unlabored respirations. Equal bilateral excursions. CARDIOVASCULAR: Regular rate and rhythm. Distal 2+ pulses. ABDOMEN: Soft, nondistended. MUSCULOSKELETAL: No clubbing, cyanosis, or edema. ASSESSMENT: 1. Gastroesophageal reflux disease PLAN: 1. Recommend proceeding with an upper endoscopy Past Medical History Past Medical History: Atrial Fibrillation, Blood Disorder, CVA/TIA, Deep Vein Thrombosis (DVT), GERD/Reflux, Hearing Disorder / Deafness, Hypertension, Myocardial Infarction (ND), Sleep Apnea/CPAP/BIPAP Additional Past Medical History / Comment(s): DVT X 3- LAST TIME 2012- LT LEG, LUMBAR DDD- . HAS HX MTHFR GENE MUTATION-POSITIVE FOR HETEROZYGOUS PER DR. FRANCISCO'S OFFICE, supposed to use CPAP, chronic swelling left lower leg stroke at 23 no deficits Last Myocardial Infarction Date:: 09/2021 History of Any Multi-Drug Resistant Organisms: None Reported Past Surgical History: Bariatric Surgery, Cardiac Ablation, Heart Catheterization, Joint Replacement Additional Past Surgical History / Comment(s): LEFT KNEE REPLACEMENT, LT INDEX JOINT REPLACEMENT, PAIN CLINIC PROCEDURES, COLONOSCOPY, EGD. Gastric bypass 07-06-23 Past Anesthesia/Blood Transfusion Reactions: Previous Problems w/ Anesthesia, Family History of Problems w/ Anesthesia, Motion Sickness Additional Past Anesthesia/Blood Transfusion Reaction / Comment(s): HARD TO PUT TO SLEEP-(pt and father)-needs more than normal Smoking Status: Never smoker - Past Family History Sister(s) Family Medical History: Cancer Additional Family Medical History / Comment(s): Skin cancer. Mother History Unknown: Yes Medications and Allergies Home Medications Medication Instructions Recorded Confirmed Type Esomeprazole Magnesium 400 mg PO DAILY 01/06/22 10/29/23 History Metoprolol Tartrate [Lopressor] 25 mg PO DAILY 03/27/23 10/29/23 History Omeprazole 40 mg PO DAILY 07/10/23 10/29/23 History Apixaban [Eliquis] 5 mg PO BID 10/08/23 10/29/23 History Allergies Allergy/AdvReac Type Severity Reaction Status Date / Time No Known Allergies Allergy Verified 08/19/23 14:11
[~2023-11-04 09:08] MED LIST changes: +LACTATED RINGERS 1,000 ML IV SCH; +LIDOCAINE 1% (10MG/ML) FOR IV START INTRADERMA PRN; -SODIUM CHLORIDE 0.9% 500 ML 500 ML in EMPTY BAG 1 BAG IV PRN
[2023-11-04 10:04] VITALS: TEMP 97.6
[2023-11-04] MEDS ORDERED: LIDOCAINE 1% INJ 10MG/ML (20 ML MDV) ONE (10:16)
[2023-11-04] MEDS ORDERED: PROPOFOL 10 MG/ML 20 ML VIAL IV ONE (10:16)
--- NOTE | 2023-11-04 10:29 | P.PCN ---
Date of Procedure: 11/04/23 Description of Procedure: PREOPERATIVE DIAGNOSIS: Gastroesophageal reflux disease. Status post sleeve gastrectomy. Epigastric abdominal pain. POSTOPERATIVE DIAGNOSIS: Status post sleeve gastrectomy. Gastroesophageal reflux disease with erosive esophagitis Epigastric abdominal pain. Erosive esophagitis, chronic. OPERATION: Esophagogastroduodenoscopy SURGEON: Lo Sun MD ANESTHESIA: MAC. INDICATIONS: The patient is a 43-year-old male who presents with gastroesophageal reflux disease, history of sleeve gastrectomy with abdominal pain. Benefits and risks of the procedure were described. Informed consent was obtained. DESCRIPTION: The patient was brought into the endoscopy suite and laid in the left lateral decubitus position. An Olympus gastroscope was passed along the posterior oropharynx down to the distal esophagus where the squamocolumnar junction was at centimeters from the incisors remarkable for chronic erosive esophagitis with LA grade A without ulceration. The stomach was entered where diaphragmatic hiatus found at 43 cm. The sleeve reservoir was within normal limits Chronic gastritis albeit mild was found along the antrum with cold biopsies obtained. The first through third portion of the duodenum was examined and unremarkable. The scope again had easily retroflexed along the antrum. The stomach was desufflated. The patient tolerated the procedure well. FINDINGS: No acute ulceration found along her sleeve. No corkscrewing sleeve gastrectomy. Squamocolumnar junction at 43 cm from the incisors. Diaphragmatic hiatus at 43 cm. Gastric reservoir with prior history of sleeve gastrectomy allowing retroflexion of the gastroscope to view the lower esophageal valve. LA grade B erosive esophagitis. No active duodenitis. Chronic gastritis. RECOMMENDATIONS: Upper endoscopy as needed. Continue omeprazole. Add Carafate for reflux Plan - Discharge Summary Discharge Rx Participant: No New Discharge Prescriptions: Continue Esomeprazole Magnesium 400 mg PO DAILY Metoprolol Tartrate [Lopressor] 25 mg PO DAILY Omeprazole 40 mg PO DAILY Apixaban [Eliquis] 5 mg PO BID Discharge Medication List Esomeprazole Magnesium 400 mg PO DAILY 01/06/22 [History] Metoprolol Tartrate [Lopressor] 25 mg PO DAILY 03/27/23 [History] Omeprazole 40 mg PO DAILY 07/10/23 [History] Apixaban [Eliquis] 5 mg PO BID 10/08/23 [History] Follow up Appointment(s)/Referral(s): [facility] [[facility]-STAFF] - 11/18/23 Patient Instructions/Handouts: GERD (Gastroesophageal Reflux Disease) (GEN) Activity/Diet/Wound Care/Special Instructions: Start blood thinner Thursday, 11/06 Discharge Disposition: HOME SELF-CARE
[2023-11-04 11:02] VITALS: BP 140/81; PULSE 90; RESP 20
== END 2023-11-04 11:13 | disposition home or self-care (01) ==
LOC: ORWHC2ENDO 09:08
PROVIDERS: ATTEND Surgery Plastic and Reconstructive Surgery
DX: K21.00 Gastro-esophageal reflux disease with esophagitis, without bleeding (principal); K44.9 Diaphragmatic hernia without obstruction or gangrene; I10 Essential (primary) hypertension; G47.33 Obstructive sleep apnea (adult) (pediatric); I25.2 Old myocardial infarction; I48.91 Unspecified atrial fibrillation; E66.01 Morbid (severe) obesity due to excess calories; K22.10 Ulcer of esophagus without bleeding; Z79.01 Long term (current) use of anticoagulants; Z79.899 Other long term (current) drug therapy; Z86.718 Personal history of other venous thrombosis and embolism; Z86.73 Personal history of transient ischemic attack (TIA), and cerebral infarction without residual deficits; Z98.84 Bariatric surgery status; Z68.42 Body mass index [BMI] 45.0-49.9, adult
CPT/HCPCS: 43235; J2001; J2704

== ENCOUNTER → 2023-11-18 | Outpatient (CLI) | payer OTHER ==
--- NOTE | 2023-11-18 15:15 | P.BASOAP ---
Subjective Progress Note Date: 11/18/23 DATE OF SERVICE: 11/18/23 CHIEF COMPLAINT: Status post sleeve gastrectomy HISTORY OF PRESENT ILLNESS: Jose Juan Crisostomo is a 43-year-old male status post sleeve gastrectomy 06/28/2023. He is 4 months postop. He reports pre-existing epigastric abdominal pain. He had EGD that was unremarkable. He hardly eats. His weight loss has slowed. He reports lower belt like pain. Presents due to his persistent abdominal pain of the epigastrium for over 1 to 2 months. At height of 6 feet 1 inches, ideal body weight is 188 pounds. His highest weight is 405 pounds, body mass index 53.6. He comes in 345 pounds from 372 pounds 1 year ago. He has lost 28 pounds in 1 year. His body mass index is 45.5. He is 157 pounds overweight. Lifetime weight loss 60 pounds. Lifetime percent excess weight loss 28%. PAST MEDICAL HISTORY: 1. Morbid obesity due to excess calories, BMI 49.2 2. Atrial fibrillation 3. Hyperlipidemia 4. Gastroesophageal reflux disease 5. Hypertensive heart disease 6. Depressive disorder 7. Coronary artery disease 8. History of hypercoagulable disorder, MTHFR 9. Deep venous thrombosis 10. Myocardial infarction PAST SURGICAL HISTORY: 1. Cardiac catheterization 2. Status post sleeve gastrectomy HOME MEDICATIONS: Home Medications Medication Instructions Recorded Confirmed Omeprazole 40 mg PO DAILY 07/10/23 11/30/23 Apixaban [Eliquis] 5 mg PO BID 10/08/23 11/30/23 Atorvastatin [Lipitor] 40 mg PO HS 11/18/23 11/30/23 Cyclobenzaprine HCl 10 mg PO QID PRN 11/18/23 11/30/23 Ergocalciferol [Vitamin D2 (1250 1,250 mcg PO MO 11/18/23 11/30/23 Mcg = 34947 Iu)] Famotidine [Pepcid] 20 mg PO DAILY 11/18/23 11/30/23 Gabapentin [Neurontin] 400 mg PO TID 11/18/23 11/30/23 Loratadine 10 mg PO BID 11/18/23 11/30/23 Metoprolol Tartrate [Lopressor] 25 mg PO BID 11/18/23 11/30/23 Spironolactone 50 mg PO DAILY 11/18/23 11/30/23 Sucralfate [Carafate] 1 gm PO BID 11/18/23 11/30/23 Valsartan 320 mg PO DAILY 11/18/23 11/30/23 hydroCHLOROthiazide 25 mg PO DAILY 11/18/23 11/30/23 Ferrous Sulfate [Iron (65 MG 325 mg PO DAILY 11/30/23 11/30/23 Elemental)] HYDROcodone/APAP 10-325MG [Barton 1 tab PO TID PRN 11/30/23 11/30/23 10-325] Magnesium Oxide [Magnesium] 1,000 mg PO DAILY 11/30/23 11/30/23 Previous Rx's Medication Instructions Recorded Fenofibrate [Lofibra] 160 mg PO DAILY 30 Days #30 tab 12/03/23 ALLERGIES: Allergies Allergy/AdvReac Type Severity Reaction Status Date / Time No Known Allergies Allergy Verified 11/30/23 15:38 SOCIAL HISTORY: Denies tobacco use. FAMILY HISTORY: No family history of ulcerative colitis disease or Crohn's disease. Family history of morbid obesity. No lupus in the family. No reports of stomach or esophageal cancer. REVIEW OF ORGAN SYSTEMS: CONSTITUTIONAL: At height of 6 feet 1 inches, ideal body weight is 188 pounds. His highest weight is 405 pounds, body mass index 53.6. He comes in 345 pounds from 372 pounds 1 year ago. He has lost 28 pounds in 1 year. His body mass index is 45.5. He is 157 pounds overweight. Lifetime weight loss 60 pounds. Lifetime percent excess weight loss 28%. HEENT: Denies any active troubles with vision or hearing. ENDOCRINE: Denies diabetes. Denies hypothyroidism. CARDIOVASCULAR: History of myocardial infarction. History of cardiac catheterization. RESPIRATORY: Has daytime somnolence and snores. GASTROINTESTINAL: Denies any bright red blood per rectum. No diarrhea. No constipation. Has gastroesophageal reflux disease. GENITOURINARY: Denies bladder urgency. No recent blood in urine MUSCULOSKELETAL: Has lower back pain and joint pain. NEURO: Denies migraines. No seizure disorders. PSYCH: Has depression. No suicidal ideation. RHEUMATOLOGIC: No lupus. No rheumatoid arthritis. HEMATOLOGIC: Has hypercoagulable state. with MTHFR gene. SKIN: No rash. No skin cancer. PHYSICAL EXAM: VITAL SIGNS: Height 6 foot 1 inches, weight 345 pounds. BMI 45.5 Vital Signs Temp 98.5 F 11/18/23 15:09 Pulse 97 11/18/23 15:09 Resp BP 126/81 11/18/23 15:09 Pulse Ox FiO2 GENERAL: Well-developed in no acute distress. HEENT: No scleral icterus. Extraocular movements grossly intact. Hears conversational speech. No nasal drainage. NECK: Supple without lymphadenopathy. CHEST: Nonlabored respirations with equal bilateral excursions. CARDIOVASCULAR: Regular rate and regular rhythm. Distal 2+ pulses. ABDOMEN: Obese, soft, nontender, nondistended. MUSCULOSKELETAL: No clubbing, cyanosis. NEURO: No focal or lateralizing signs. Cranial nerves 2 through 12 grossly within normal limits. PSYCH: Appropriate affect. Alert and oriented to person, place and time. SKIN: Good skin turgor. Well perfused. LABS: Bariatric labs reviewed demonstrating zinc deficiency. Iron low. EGD FINDINGS: No acute ulceration found along her sleeve. No corkscrewing sleeve gastrectomy. Squamocolumnar junction at 43 cm from the incisors. Diaphragmatic hiatus at 43 cm. Gastric reservoir with prior history of sleeve gastrectomy allowing retroflexion of the gastroscope to view the lower esophageal valve. LA grade B erosive esophagitis. No active duodenitis. Chronic gastritis. STUDIES: Hepatobiliary scan independently reviewed demonstrates normal ejection fraction of 72%. This is my independent interpretation. ASSESSMENT: 1. Morbid obesity due to excess calories, BMI 53.6 to 45.5 2. Atrial fibrillation 3. Hyperlipidemia 4. Gastroesophageal reflux disease 5. Hypertensive heart disease 6. Depressive disorder 7. Coronary artery disease 8. History of hypercoagulable disorder, MTHFR 9. Deep venous thrombosis 10. Myocardial infarction 11. Phosphorus low 12. Vitamin D deficiency 13. Hypertriglyceridemia 14. Abnormal EKG 15. Iron deficiency 16. Status post sleeve gastrectomy 17. Zinc deficiency PLAN: 1. He has epigastric abdominal pain and has not been evaluated for gallbladder disease. Recommend ultrasound of the gallbladder. 2. With worsening epigastric abdominal pain and risk of gallstones, recommend low-fat diet. Objective - Vital Signs Vital signs: Vital Signs Temp 98.5 F 11/18/23 15:09 Pulse 97 11/18/23 15:09 Resp BP 126/81 11/18/23 15:09 Pulse Ox FiO2 Intake & Output 11/17/23 11/18/23 11/18/23 18:59 06:59 18:59 Weight 156.353 kg Assessment/Plan Plan: Date: 11/18/23 Initial Weight: Initial BMI: Current Weight: 156.353 kg Current BMI: 45.4 Type of Surgery: Total Volume in Band: Previous Volume: Volume Removed: Volume Added: Band Size:
[2023-11-18 15:27] VITALS: BP 126/81; PULSE 97; TEMP 98.5; BMI 45.4
== END ==
LOC: BARWHC3 14:02
PROVIDERS: ATTEND Surgery Plastic and Reconstructive Surgery
DX: K21.9 Gastro-esophageal reflux disease without esophagitis (principal); E66.01 Morbid (severe) obesity due to excess calories; I48.91 Unspecified atrial fibrillation; E78.5 Hyperlipidemia, unspecified; I11.9 Hypertensive heart disease without heart failure; F32.A Depression, unspecified; I25.10 Atherosclerotic heart disease of native coronary artery without angina pectoris; I25.2 Old myocardial infarction; E55.9 Vitamin D deficiency, unspecified; E78.1 Pure hyperglyceridemia; R94.31 Abnormal electrocardiogram [ECG] [EKG]; E61.1 Iron deficiency; E60 Dietary zinc deficiency; Z98.84 Bariatric surgery status; Z86.2 Personal history of diseases of the blood and blood-forming organs and certain disorders involving the immune mechanism; Z86.718 Personal history of other venous thrombosis and embolism; Z68.42 Body mass index [BMI] 45.0-49.9, adult; Z79.01 Long term (current) use of anticoagulants; Z79.899 Other long term (current) drug therapy
CPT/HCPCS: 99211

== ENCOUNTER → 2023-11-19 | Outpatient (CLI) | payer OTHER ==
--- NOTE | 2023-11-20 12:03 | US ---
EXAMINATION TYPE: US gallbladder DATE OF EXAM: 11/19/2023 COMPARISON: NONE CLINICAL INDICATION: Male, 43 years old with history of R10.11 RIGHT UPPER QUADRANT PAIN R13.10 DYSP HAGIA; RUQ pain, vomiting after gastric bypass in June 2023 TECHNIQUE: Multiple sonographic images of the right upper quadrant are obtained. FINDINGS: EXAM MEASUREMENTS: Liver Length: 16.0 cm Gallbladder Wall: 0.2 cm CBD: 0.3 cm Right Kidney: 10.9x5.0x6.2 cm [employer] NOTES: Pancreas: Obscured by bowel gas Liver: upper limits, increased echogenicity Gallbladder: No stones seen Evidence for sonographic Brandt's sign: No CBD: wnl Right Kidney: No hydronephrosis or masses seen exam limited by bowel and body habitus IMPRESSION: Mild fatty infiltration liver. Borderline hepatic enlargement present.
== END | disposition home or self-care (01) ==
LOC: RADUSWWP 06:57
PROVIDERS: ATTEND Surgery Plastic and Reconstructive Surgery
DX: K76.0 Fatty (change of) liver, not elsewhere classified (principal); R13.10 Dysphagia, unspecified; R11.0 Nausea
CPT/HCPCS: 76705

== ENCOUNTER → 2023-11-19 | Outpatient (CLI) | payer OTHER ==
--- NOTE | 2023-11-19 08:32 | XR ---
EXAMINATION TYPE: XR chest 2V DATE OF EXAM: 11/19/2023 COMPARISON: 03/27/2023 INDICATION: Deep venous thrombosis TECHNIQUE: Frontal and lateral views of the chest are obtained. FINDINGS: The heart size is normal. The pulmonary vasculature is normal. The lungs are clear. IMPRESSION: 1. No acute pulmonary process radiographically apparent..
== END | disposition home or self-care (01) ==
LOC: RADXRMAIN 07:33
PROVIDERS: ATTEND Internal Medicine Hematology & Oncology
DX: I82.5Z9 Chronic embolism and thrombosis of unspecified deep veins of unspecified distal lower extremity (principal); D68.59 Other primary thrombophilia
CPT/HCPCS: 71046

== ENCOUNTER 2023-11-30 13:48 | Observation (INO) | payer OTHER ==
[2023-11-30] MEDS ORDERED: SODIUM CHLORIDE 0.9% 1,000 ML IV ONE (14:48)
[2023-11-30] MEDS ORDERED: IBUPROFEN 600 MG TAB PO STA (14:48)
[2023-11-30] MEDS ORDERED: ACETAMINOPHEN TAB 500 MG TAB PO STA (14:48)
--- NOTE | 2023-11-30 15:00 | ED ---
General Adult HPI - General Chief complaint: Chest Pain Stated complaint: Afib,Chest Pain,Dizziness Time Seen by Provider: 11/30/23 14:20 Source: patient, RN notes reviewed, old records reviewed Mode of arrival: wheelchair Limitations: no limitations - History of Present Illness Initial comments: This is a 43-year-old male presents emergency Department complaining that he felt his heart racing a little dizzy and had some body aches so he decided come to the emergency department. Patient does have a history of atrial fibrillation. Patient also states he has a history of a heart attack and a stroke. Patient denies any fever but does feel hot. Patient states he is also a little lightheaded. Patient denies any significant cough. Patient states she's having some tightness in his chest along with the palpitations. Patient denies shortness of breath. Patient denies abdominal pain patient denies nausea vomiting diarrhea. - Related Data Home Medications Medication Instructions Recorded Confirmed Omeprazole 40 mg PO DAILY 07/10/23 11/30/23 Apixaban [Eliquis] 5 mg PO BID 10/08/23 11/30/23 Atorvastatin [Lipitor] 40 mg PO HS 11/18/23 11/30/23 Cyclobenzaprine HCl 10 mg PO QID PRN 11/18/23 11/30/23 Ergocalciferol [Vitamin D2 (1250 1,250 mcg PO [place] 11/18/23 11/30/23 Mcg = 04359 Iu)] Famotidine [Pepcid] 20 mg PO DAILY 11/18/23 11/30/23 Gabapentin [Neurontin] 400 mg PO TID 11/18/23 11/30/23 Loratadine 10 mg PO BID 11/18/23 11/30/23 Metoprolol Tartrate [Lopressor] 25 mg PO BID 11/18/23 11/30/23 Spironolactone 50 mg PO DAILY 11/18/23 11/30/23 Sucralfate [Carafate] 1 gm PO BID 11/18/23 11/30/23 Valsartan 320 mg PO DAILY 11/18/23 11/30/23 hydroCHLOROthiazide 25 mg PO DAILY 11/18/23 11/30/23 Ferrous Sulfate [Feosol] 325 mg PO DAILY 11/30/23 11/30/23 HYDROcodone/APAP 10-325MG [[place] 1 tab PO TID PRN 11/30/23 11/30/23 10-325] Magnesium Oxide [Magnesium] 1,000 mg PO DAILY 11/30/23 11/30/23 Allergies Allergy/AdvReac Type Severity Reaction Status Date / Time No Known Allergies Allergy Verified 11/30/23 15:38 Review of Systems ROS Statement: Those systems with pertinent positive or pertinent negative responses have been documented in the HPI. ROS Other: All systems not noted in ROS Statement are negative. Past Medical History Past Medical History: Atrial Fibrillation, Asthma, Blood Disorder, Deep Vein Thrombosis (DVT), GERD/Reflux, Hearing Disorder / Deafness, Hypertension, Myocardial Infarction ([place]), Sleep Apnea/CPAP/BIPAP Additional Past Medical History / Comment(s): DVT X 3- LAST TIME 2012- LT LEG, LUMBAR DDD- . HAS HX MTHFR GENE MUTATION-POSITIVE FOR HETEROZYGOUS PER DR. FRANCISCO'S OFFICE, supposed to use CPAP, chronic swelling left lower leg Last Myocardial Infarction Date:: 09/2021 History of Any Multi-Drug Resistant Organisms: None Reported Past Surgical History: Bariatric Surgery, Cardiac Ablation, Heart Catheterization, Joint Replacement Additional Past Surgical History / Comment(s): LEFT KNEE REPLACEMENT, LT INDEX JOINT REPLACEMENT, PAIN CLINIC PROCEDURES, COLONOSCOPY, EGD. Gastric bypass 07-06-23 Past Anesthesia/Blood Transfusion Reactions: Previous Problems w/ Anesthesia, Family History of Problems w/ Anesthesia, Motion Sickness Additional Past Anesthesia/Blood Transfusion Reaction / Comment(s): HARD TO PUT TO SLEEP-(pt and father)-needs more than normal Past Psychological History: Depression Smoking Status: Never smoker Past Alcohol Use History: Occasional Past Drug Use History: None Reported - Past Family History Sister(s) Family Medical History: Cancer Additional Family Medical History / Comment(s): Skin cancer. Mother History Unknown: Yes General Exam - General Exam Comments Initial Comments: GENERAL: Patient is well-developed and well-nourished. Patient is nontoxic and well- hydrated and is in mild distress. I took an oral temperature patient's temperature was 100.3 ENT: Neck is soft and supple. No significant lymphadenopathy is noted. Oropharynx is clear. Moist mucous membranes. Neck has full range of motion without eliciting any pain. EYES: The sclera were anicteric and conjunctiva were pink and moist. Extraocular movements were intact and pupils were equal round and reactive to light. Eyelids were unremarkable. PULMONARY: Unlabored respirations. Good breath sounds bilaterally. No audible rales rhonchi or wheezing was noted. CARDIOVASCULAR: Patient is tachycardic in the 130 beats minute ABDOMEN: Soft and nontender with normal bowel sounds. SKIN: Skin is clear with no lesions or rashes and otherwise unremarkable. NEUROLOGIC: Patient is alert and oriented x3. Cranial nerves II through XII are grossly intact. Motor and sensory are also intact. Normal speech, volume and content. Symmetrical smile. Cerebellar exam grossly intact. MUSCULOSKELETAL: Normal extremities with adequate strength and full range of motion. No lower extremity swelling or edema. No calf tenderness. LYMPHATICS: No significant lymphadenopathy is noted PSYCHIATRIC: Normal psychiatric evaluation. Limitations: no limitations Course Vital Signs 11/30/23 11/30/23 13:53 15:43 Temperature 98.8 F 98.4 F Pulse Rate 132 H 104 H Respiratory 18 16 Rate Blood Pressure 134/78 115/77 O2 Sat by Pulse 98 97 Oximetry Medical Decision Making - Medical Decision Making EKG is interpreted by myself. EKG shows a sinus tachycardia 121 bpm MT interval 141 QRS is 95 Q-T intervals to a 70 QTC is 359. Patient's EKG shows no ST segment elevation or depression. Was pt. sent in by a medical professional or institution (, PA, CARTON FOLDER, urgent care, hospital, or custodial...) When possible be specific @ -No Did you speak to anyone other than the patient for history (EMS, parent, family, police, friend...)? What history was obtained from this source @ -No Did you review nursing and triage notes (agree or disagree)? Why? @ -I reviewed and agree with nursing and triage notes Were old charts reviewed (outside hosp., previous admission, EMS record, old EKG, old radiological studies, urgent care reports/EKG's, custodial records)? Report findings @ -Prior charts in prior laboratory comes patient Differential Diagnosis (chest pain, altered mental status, abdominal pain women, abdominal pain men, vaginal bleeding, weakness, fever, dyspnea, syncope, headache, dizziness, GI bleed, back pain, seizure, CVA, palpatations, mental health, musculoskeletal)? @ -Differential Chest Pain: Stable Angina, Unstable Angina, STEMI, NSTEMI Aortic Dissection, Pneumothorax, Musculoskeletal, Esophageal Spasm GERD, Cholecystitis, Pancreatitis, Zoster, this is not meant to be an all-inclusive list. Differential Dyspnea: Coronary syndrome, arrhythmia, tamponade, asthma, COPD, pulmonary embolism, pneumonia, pneumothorax, pulmonary effusion, anaphylaxis, diabetic ketoacidosis, flailed chest, pulmonary contusion, diaphragmatic rupture, anemia, n euromuscular, this is not meant to be an all-inclusive list. EKG interpreted by me (3pts min.). @ -As above X-rays interpreted by me (1pt min.). @ -Chest x-ray shows no acute abnormality CT interpreted by me (1pt min.). @ -None done U/S interpreted by me (1pt. min.). @ -None done What testing was considered but not performed or refused? (CT, X-rays, U/S, labs)? Why? @ -None What meds were considered but not given or refused? Why? @ -None Did you discuss the management of the patient with other professionals (professionals i.e. , PA, CARTON F[employer]DER, lab, RT, psych nurse, sexual assault social worker, brick grader, teacher, combat information center officer, case resource manager)? Give summary @ -I spoke with Dr. Landaverde and he agreed to admit the patient admitted the patient wrote admitting orders Was smoking cessation discussed for >3mins.? @ -No Was critical care preformed (if so, how long)? @ -No Were there social determinants of health that impacted care today? How? (Homelessness, low income, unemployed, alcoholism, drug addiction, transportation, low edu. Level, literacy, decrease access to med. care, senior living, rehab)? @ -No Was there de-escalation of care discussed even if they declined (Discuss DNR or withdrawal of care, Hospice)? DNR status @ -No What co-morbidities impacted this encounter? (DM, HTN, Smoking, COPD, CAD, Cancer, CVA, ARF, Chemo, Hep., AIDS, mental health diagnosis, sleep apnea, morbid obesity)? @ -None Was patient admitted / discharged? Hospital course, mention meds given and route, prescriptions, significant lab abnormalities, going to OR and other pertinent info. @ -Patient was given Motrin and Tylenol fever came down but his heart rate stayed at 105 and he still was feeling some chest tightness and shortness of breath. Patient stated in the past had a blood clot in his leg when he was on another thinner he can't remember what that there was. At this point, I decided to order CT for PE. I spoke with Dr. Landaverde he was in agreement to follow up this test and patient will be admitted off both cardiology consult Undiagnosed new problem with uncertain prognosis? @ -No Drug Therapy requiring intensive monitoring for toxicity (Heparin, Nitro, Insuli n, Cardizem)? @ -No Were any procedures done? @ -No Diagnosis/symptom? @ -Chest pain Acute, or Chronic, or Acute on Chronic? @ -Acute Uncomplicated (without systemic symptoms) or Complicated (systemic symptoms)? @ -Complicated Side effects of treatment? @ -No Exacerbation, Progression, or Severe Exacerbation? @ -No Poses a threat to life or bodily function? How? (Chest pain, [place], [place], pneumonia, PE, COPD, DKA, ARF, appy, cholecystitis, CVA, Diverticulitis, Homicidal, Suicidal, threat to staff... and all critical care pts) @ -Yes this could lead to an [place] and end organ dysfunction Diagnosis/symptom? @ -Dyspnea with fever Acute, or Chronic, or Acute on Chronic? @ -Acute Uncomplicated (without systemic symptoms) or Complicated (systemic symptoms)? @ -Complicated Side effects of treatment? @ -none Exacerbation, Progression, or Severe Exacerbation] @ -no Poses a threat to life or bodily function? @ -no - Lab Data Result diagrams: 11/30/23 14:54 11/30/23 14:54 Lab Results 11/30/23 11/30/23 11/30/23 Range/Units 14:54 14:54 14:54 WBC 12.4 H (3.8-10.6) k/uL RBC 5.44 (4.30-5.90) m/uL Hgb 14.8 (13.0-17.5) gm/dL Hct 45.2 (39.0-53.0) % MCV 83.1 (80.0-100.0) fL MCH 27.1 (25.0-35.0) pg MCHC 32.6 (31.0-37.0) g/dL RDW 14.2 (11.5-15.5) % Plt Count 400 (150-450) k/uL MPV 6.8 Neutrophils % 79 % Lymphocytes % 12 % Monocytes % 5 % Eosinophils % 2 % Basophils % 0 % Neutrophils # 9.8 H (1.3-7.7) k/uL Lymphocytes # 1.5 (1.0-4.8) k/uL Monocytes # 0.6 (0-1.0) k/uL Eosinophils # 0.3 (0-0.7) k/uL Basophils # 0.0 (0-0.2) k/uL Hypochromasia Slight Sodium 139 (137-145) mmol/L Potassium 4.6 (3.5-5.1) mmol/L Chloride 103 (98-107) mmol/L Carbon Dioxide 29 (22-30) mmol/L Anion Gap 7 mmol/L BUN 13 (9-20) mg/dL Creatinine 0.91 (0.66-1.25) mg/dL Est GFR (CKD-EPI)AfAm >90 (>60 ml/min/1.73 sqM) Est GFR (CKD-EPI)NonAf >90 (>60 ml/min/1.73 sqM) Glucose 93 (74-99) mg/dL Plasma Lactic Acid Jordan (0.7-2.0) mmol/L Calcium 9.7 (8.4-10.2) mg/dL Magnesium 2.0 (1.6-2.3) mg/dL Total Bilirubin 0.5 (0.2-1.3) mg/dL AST 21 (17-59) U/L ALT 18 (4-49) U/L Alkaline Phosphatase 89 (38-126) U/L Troponin I <0.012 (0.000-0.034) ng/mL Total Protein 6.8 (6.3-8.2) g/dL Albumin 4.2 (3.5-5.0) g/dL Influenza Type A (PCR) (Not Detectd) Influenza Type B (PCR) (Not Detectd) RSV (PCR) (Not Detectd) SARS-CoV-2 (PCR) (Not Detectd) 11/30/23 11/30/23 Range/Units 14:54 14:54 WBC (3.8-10.6) k/uL RBC (4.30-5.90) m/uL Hgb (13.0-17.5) gm/dL Hct (39.0-53.0) % MCV (80.0-100.0) fL MCH (25.0-35.0) pg MCHC (31.0-37.0) g/dL RDW (11.5-15.5) % Plt Count (150-450) k/uL MPV Neutrophils % % Lymphocytes % % Monocytes % % Eosinophils % % Basophils % % Neutrophils # (1.3-7.7) k/uL Lymphocytes # (1.0-4.8) k/uL Monocytes # (0-1.0) k/uL Eosinophils # (0-0.7) k/uL Basophils # (0-0.2) k/uL Hypochromasia Sodium (137-145) mmol/L Potassium (3.5-5.1) mmol/L Chloride (98-107) mmol/L Carbon Dioxide (22-30) mmol/L Anion Gap mmol/L BUN (9-20) mg/dL Creatinine (0.66-1.25) mg/dL Est GFR (CKD-EPI)AfAm (>60 ml/min/1.73 sqM) Est GFR (CKD-EPI)NonAf (>60 ml/min/1.73 sqM) Glucose (74-99) mg/dL Plasma Lactic Acid Jordan 2.0 (0.7-2.0) mmol/L Calcium (8.4-10.2) mg/dL Magnesium (1.6-2.3) mg/dL Total Bilirubin (0.2-1.3) mg/dL AST (17-59) U/L ALT (4-49) U/L Alkaline Phosphatase (38-126) U/L Troponin I (0.000-0.034) ng/mL Total Protein (6.3-8.2) g/dL Albumin (3.5-5.0) g/dL Influenza Type A (PCR) Not Detected (Not Detectd) Influenza Type B (PCR) Not Detected (Not Detectd) RSV (PCR) Not Detected (Not Detectd) SARS-CoV-2 (PCR) Not Detected (Not Detectd) Disposition Clinical Impression: Chest pain, Dyspnea, Fever Disposition: ADMITTED IP TO THIS HOSP Referrals: Aden Diaz MD [Primary Care Provider] - 1-2 days Time of Disposition: 16:28
[2023-11-30 15:11] LABS: Basophils % (A) 0 %; Eosinophils # (A) 0.3 k/uL (0-0.7); Eosinophils % (A) 2 %; HCT 45.2 % (39.0-53.0); HGB 14.8 gm/dL (13.0-17.5); Hypochromasia Slight; Lymphocytes # (A) 1.5 k/uL (1.0-4.8); Lymphocytes % (A) 12 %; MCH 27.1 pg (25.0-35.0); MCHC 32.6 g/dL (31.0-37.0); MCV 83.1 fL (80.0-100.0); Mean Platelet Volume 6.8; Monocytes # (A) 0.6 k/uL (0-1.0); Monocytes % (A) 5 %; Neutrophils # (A) 9.8 k/uL (1.3-7.7); Neutrophils % (A) 79 %; Platelet Count 400 k/uL (150-450); RBC 5.44 m/uL (4.30-5.90); RDW 14.2 % (11.5-15.5); WBC 12.4 k/uL (3.8-10.6)
[2023-11-30 15:20] LABS: ALT 18 U/L (4-49); AST 21 U/L (17-59); African American GFR (CKD) >90 (>60 ml/min/1.73 sqM); Albumin 4.2 g/dL (3.5-5.0); Alkaline Phosphatase 89 U/L (38-126); Anion Gap 7 mmol/L; Blood Urea Nitrogen 13 mg/dL (9-20); Calcium 9.7 mg/dL (8.4-10.2); Carbon Dioxide 29 mmol/L (22-30); Chloride 103 mmol/L (98-107); Glucose 93 mg/dL (74-99); Non-African American GFR(CKD) >90 (>60 ml/min/1.73 sqM); Potassium 4.6 mmol/L (3.5-5.1); Sodium 139 mmol/L (137-145); Total Bilirubin 0.5 mg/dL (0.2-1.3); Total Protein 6.8 g/dL (6.3-8.2)
--- NOTE | 2023-11-30 15:22 | XR ---
EXAMINATION TYPE: XR chest 2V DATE OF EXAM: 11/30/2023 COMPARISON: 11/19/2023 HISTORY: 43-year-old male with chest pain TECHNIQUE: PA and lateral views FINDINGS: The cardiomediastinal silhouette, aorta, and pulmonary vasculature are within normal limits. Lungs an d pleural spaces are clear. IMPRESSION: No acute cardiopulmonary process.
[2023-11-30] MEDS ORDERED: ASPIRIN 81 MG PO STA (16:29)
[2023-11-30] MEDS ORDERED: NITROGLYCERIN SL TABS 0.4 MG TAB SUBLINGUAL PRN (16:29)
[2023-11-30] MEDS ORDERED: MAG HYDROX/AL HYDROX/SIMETH 30 ML, HYOSCYAMINE ELIXIR 10 ML, LIDOCAINE VISCOUS 10 ML PO ONE ×3 (17:38)
[2023-11-30] MEDS ORDERED: HYDROmorphone 1 MG/ML 1 ML SYRINGE IVP STA (17:38)
--- NOTE | 2023-11-30 17:46 | P.HPIM ---
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 He presented to the emergency department with a chief complaint of palpitations, chest pain, and dizziness/lightheadedness. Patient reports his day starting out normal and suddenly he began having tightness throughout his chest and feelings of his heart racing so he came to the emergency department for evaluation. Patient denies having any headache, changes in vision or hearing, palpitations, shortness of breath, sore throat, cough or congestion, abdominal pain, nausea, vomiting, or experiencing any numbness/tingling/weakness/swelling in his extremities. He underwent full evaluation in the emergency department. Vital signs upon arrival show blood pressure 134/78, heart rate 132, respiratory rate 18, temp 98.8F, and SpO2 of 98% on room air. EKG was completed showing sinus tachycardia at 121 bpm with T- wave inversion in lateral leads 2 and aVL. Chest x-ray completed negative for acute cardiopulmonary process. Labs completed and reviewed. CBC showing mild cytosis with WBC count of 12.4. BMP unremarkable. Lactic acid normal findings at 2.0. Magnesium also normal findings at 2.0. Liver profile unremarkable. Troponin negative at less than 0.012. Influenza A, influenza B, RSV, and Covid PCR negative. Patient admitted under our services with consultation cardiology. Patient reports that he follows with Dr. Wolfe with [facility]. Review of systems: Pertinent positives and negatives as discussed in HPI, a complete review of systems was performed and all other systems are negative. Physical exam: Vital signs reviewed and stable. General: Nontoxic, no distress and appears stated age. Derm: Skin warm and dry, normal coloration for ethnicity. Head: Atraumatic, normocephalic and symmetric. Eyes: EOMs intact, no lid lag, and anicteric sclera Mouth: no lip lesions, mucus membranes moist Cardiovascular: tachycardic rate with regular rhythm, normal S1S2, no murmur, positive posterior tibial pulses bilaterally, and cap refill < 2 seconds. Lungs: Respirations even, regular, and unlabored on room air. Lungs CTA bilaterally, no rhonchi, no rales, no wheezing, and no accessory muscle usage. Abdominal: soft, nontender to palpation, no guarding, no appreciable organomegaly Ext: ROM intact. No gross muscle atrophy, no edema, no contractures Neuro: Speech clear, face symmetrical and CN II-XII grossly intact with no noted focal neuro deficits Psych: Alert and oriented to person, place, time, and situation. Appropriate and pleasant affect. Assessment and Plan of Care: Chest pain, palpitations and dizziness/lightheadedness rule out acute coronary event Sinus tachycardia History of atrial fibrillation with recurrent DVTs History of CAD Hypertension Hyperlipidemia MTHFR gene mutation -Cardiology consulted, appreciate further recommendations -Telemetry monitoring -Trend troponins and obtain a stat TSH with reflex free T4 -CTA ordered by ED physician and awaiting completion. -Cardiac diet, NPO at midnight -Continue cardiac medication regimen with aspirin 81 mg daily, Eliquis 5 mg twice daily, atorvastatin 40 mg nightly, hydrochlorothiazide 25 mg daily, metoprolol 25 mg twice daily, Aldactone 50 mg daily, and valsartan 320 mg daily. -Lipid profile with a.m. labs. -Echocardiogram completed 06/24/22 showing preserved EF of 55-60%. Will defer ordering of repeat echocardiogram to motor teacher per their discretion. GERD History of gastric bypass 06/2023 Continue daily medication regimen with omeprazole 40 mg daily, Pepcid 20 mg daily, and Carafate 1 g twice daily. Order placed for GI cocktail 1 dose secondary to patient's reports of chest tightness and burning. Patient recently underwent gallbladder ultrasound on 11/19/23 and report reviewed showing mild fatty infiltration of liver with borderline hepatic enlargement and HIDA scan on 10/27/23 which showed gallbladder ejection fraction to be calculated at 72% upper limits of the normal range. Data and imaging reviewed: As stated above in HPI. The patient is admitted with an anticipated less than 2 midnight stay for evaluation of chest pain. CODE STATUS: Full code DVT prophylaxis: Eliquis Anticipated discharge date: 24-[address]: Home Patient was seen independently by Nurse Practitioner. This document was prepared using [employer] dictation software. Please allow for errors in rn enterostomal while rare they do occur. I reviewed the documentation as provided by the СЕРГЕЙ above, who is the original author of this note. I agree with the documented assessment and plan, with the following changes: none Past Medical History Past Medical History: Atrial Fibrillation, Asthma, Blood Disorder, Deep Vein Thrombosis (DVT), GERD/Reflux, Hearing Disorder / Deafness, Hypertension, Myocardial Infarction ([place]), Sleep Apnea/CPAP/BIPAP Additional Past Medical History / Comment(s): DVT X 3- LAST TIME 2012- LT LEG, LUMBAR DDD- . HAS HX MTHFR GENE MUTATION-POSITIVE FOR HETEROZYGOUS PER DR. FRANCISCO'S OFFICE, supposed to use CPAP, chronic swelling left lower leg Last Myocardial Infarction Date:: 09/2021 History of Any Multi-Drug Resistant Organisms: None Reported Past Surgical History: Bariatric Surgery, Cardiac Ablation, Heart Catheterization, Joint Replacement Additional Past Surgical History / Comment(s): LEFT KNEE REPLACEMENT, LT INDEX JOINT REPLACEMENT, PAIN CLINIC PROCEDURES, COLONOSCOPY, EGD. Gastric bypass 07-06-23 Past Anesthesia/Blood Transfusion Reactions: Previous Problems w/ Anesthesia, Family History of Problems w/ Anesthesia, Motion Sickness Additional Past Anesthesia/Blood Transfusion Reaction / Comment(s): HARD TO PUT TO SLEEP-(pt and father)-needs more than normal Past Psychological History: Depression Smoking Status: Never smoker Past Alcohol Use History: Occasional Past Drug Use History: None Reported - Past Family History Sister(s) Family Medical History: Cancer Additional Family Medical History / Comment(s): Skin cancer. Mother History Unknown: Yes Medications and Allergies Home Medications Medication Instructions Recorded Confirmed Type Omeprazole 40 mg PO DAILY 07/10/23 11/30/23 History Apixaban [Eliquis] 5 mg PO BID 10/08/23 11/30/23 History Atorvastatin [Lipitor] 40 mg PO HS 11/18/23 11/30/23 History Cyclobenzaprine HCl 10 mg PO QID PRN 11/18/23 11/30/23 History Ergocalciferol [Vitamin D2 (1250 1,250 mcg PO MO 11/18/23 11/30/23 History Mcg = 80325 Iu)] Famotidine [Pepcid] 20 mg PO DAILY 11/18/23 11/30/23 History Gabapentin [Neurontin] 400 mg PO TID 11/18/23 11/30/23 History Loratadine 10 mg PO BID 11/18/23 11/30/23 History Metoprolol Tartrate [Lopressor] 25 mg PO BID 11/18/23 11/30/23 History Spironolactone 50 mg PO DAILY 11/18/23 11/30/23 History Sucralfate [Carafate] 1 gm PO BID 11/18/23 11/30/23 History Valsartan 320 mg PO DAILY 11/18/23 11/30/23 History hydroCHLOROthiazide 25 mg PO DAILY 11/18/23 11/30/23 History Ferrous Sulfate [Feosol] 325 mg PO DAILY 11/30/23 11/30/23 History HYDROcodone/APAP 10-325MG [[place] 1 tab PO TID PRN 11/30/23 11/30/23 History 10-325] Magnesium Oxide [Magnesium] 1,000 mg PO DAILY 11/30/23 11/30/23 History Allergies Allergy/AdvReac Type Severity Reaction Status Date / Time No Known Allergies Allergy Verified 11/30/23 15:38 Physical Exam Osteopathic Statement: *. No significant issues noted on an osteopathic structural exam other than those noted in the History and Physical/Consult. Vitals: Vital Signs Temp Pulse Resp BP Pulse Ox 11/30/23 15:43 98.4 F 104 H 16 115/77 97 11/30/23 13:53 98.8 F 132 H 18 134/78 98 Intake and Output 11/30/23 11/30/23 11/30/23 06:59 14:59 22:59 Other: Weight 154.221 kg Results CBC & Chem 7: 11/30/23 14:54 11/30/23 14:54 Labs: Abnormal Lab Results - Last 24 Hours (Table) 11/30/23 Range/Units 14:54 WBC 12.4 H (3.8-10.6) k/uL Neutrophils # 9.8 H (1.3-7.7) k/uL
[2023-11-30] MEDS: NITROGLYCERIN OINT 1 INCH/GM PACKET TOPICAL SCH (18:04)
--- NOTE | 2023-11-30 18:10 | CT ---
EXAMINATION TYPE: CT chest angio for PE DATE OF EXAM: 11/30/2023 COMPARISON: None HISTORY: Dyspnea, Chest tightness, fever. CT DLP: 1010.4 mGycm Automated exposure control for dose reduction was used. CONTRAST: CT Chest for pulmonary embolism performed with with IV Contrast, patient injected with 100ml mL of Is ovue 300. 3-D postprocessing was performed. FINDINGS: LUNGS: The lungs are grossly clear, there is no concerning parenchymal mass or nodule identified. T here is no pleural effusion or pneumothorax seen. The tracheobronchial tree is patent. MEDIASTINUM: There is satisfactory enhancement of the pulmonary artery and its branches, there is no CT evidence for pulmonary embolism. There are no greater than 1 cm hilar or mediastinal lymph nodes. No pericardial effusion is seen. OTHER: No additional significant abnormality is seen. IMPRESSION: 1. No acute cardiopulmonary disease. 2. Slightly suboptimal opacification of pulmonary arteries and branches but no filling defects are se en within the limits the exam. Tiny distal subsegmental branch emboli cannot be entirely excluded wit h this technique. Follow-up recommendations for incidental pulmonary nodules are per [employer] or [employer].
[2023-11-30] MEDS: METOPROLOL TARTRATE 25 MG TAB PO SCH (21:26)
[2023-11-30] MEDS: SUCRALFATE 1 GM TAB PO SCH (21:26)
[2023-11-30] MEDS: APIXABAN 5 MG TAB PO SCH (21:26)
[2023-11-30] MEDS: ATORVASTATIN 40 MG TAB PO SCH (21:26)
[2023-11-30 22:17] LABS: T4, Free (Free Thyroxine) 1.16 ng/dL (0.78-2.19)
[2023-11-30] MEDS: GABAPENTIN 400 MG CAP PO SCH (22:47)
[2023-11-30] MEDS: HYDROcodone/APAP 10-325MG 1 EACH TAB PO PRN (22:50)
[2023-12-01] MEDS: NITROGLYCERIN OINT 1 INCH/GM PACKET TOPICAL SCH ×5 (00:18→23:25)
[2023-12-01] MEDS ORDERED: ASPIRIN 325 MG TAB PO SCH (09:00)
[2023-12-01] MEDS: ASPIRIN 81 MG PO SCH (09:22)
[2023-12-01] MEDS: APIXABAN 5 MG TAB PO SCH ×2 (09:22→21:11)
[2023-12-01] MEDS: METOPROLOL TARTRATE 25 MG TAB PO SCH ×2 (09:23→21:11)
[2023-12-01] MEDS: hydroCHLOROthiazide 25 MG TAB PO SCH (09:23)
[2023-12-01] MEDS: SPIRONOLACTONE 25 MG TAB PO SCH (09:23)
[2023-12-01] MEDS: FERROUS SULFATE 325 MG TAB PO SCH (09:23)
[2023-12-01] MEDS: FAMOTIDINE 20 MG TAB PO SCH (09:23)
[2023-12-01] MEDS: SUCRALFATE 1 GM TAB PO SCH ×2 (09:23→21:11)
[2023-12-01] MEDS: PANTOPRAZOLE 40 MG TABLET PO SCH (09:23)
[2023-12-01] MEDS: GABAPENTIN 400 MG CAP PO SCH ×3 (09:27→21:11)
[2023-12-01] MEDS: HYDROcodone/APAP 10-325MG 1 EACH TAB PO PRN ×2 (09:27→16:43)
[2023-12-01] MEDS: VALSARTAN 160 MG TAB PO SCH (09:48)
[2023-12-01] MEDS ORDERED: HYDROmorphone 1 MG/ML 1 ML SYRINGE IVP STA (12:04)
--- NOTE | 2023-12-01 12:17 | P.CRDCN ---
History of Present Illness Consult date: 12/01/23 Consult reason: chest pain (dyspnea) History of present illness: History of present illness: This is a 43-year-old male patient of Dr. Wolfe with past medical history of DVT on long-term anticoagulation with Eliquis, MTHFR gene mutation, obstructive sleep apnea, hypertension, strong family history of coronary artery disease, normal coronary arteries on heart catheterization, paroxysmal atrial fibrillation status post atrial fibrillation ablation in March [address] Zhang, chronic venous insufficiency. We have been asked to evaluate the patient for chest pain and dyspnea. Patient is seen today in the emergency center waiting for a bed on the observation unit. Patient states he had sudden onset that her heart rate was elevated and also experienced chest pain with this that was achy and tight. He also had a little lightheadedness and dizziness without syncope. He states his heart rate at the time was 145 bpm. Patient also voiced concern that he was in atrial fibrillation. He states he has been taking all of his medications as directed. He had a temperature of 100.1. Patient denies any sick contacts, no fevers. Reviewed telemetry and EKGs with no sign of atrial fibrillation. Patient is also complaining of back pain going down his leg. EKG sinus tach at 121 bpm CTA of the chest: No acute cardiopulmonary disease. Distal subsegmental branch emboli cannot be entirely excluded. Chest x-ray: No acute finding. WBC 12.4, hemoglobin 14.8, platelet count 400. Electrolytes, renal function, liver function test are all within normal limits. TSH 0.321, free T4 normal at 1.16. Troponin negative x 3. Home cardiac medications: Eliquis 5 mg twice daily, atorvastatin 40 mg at bedtime, hydrochlorothiazide 25 mg daily, magnesium oxide 1000 mg daily, Lopressor 25 mg twice daily, spironolactone 50 mg daily, valsartan 320 mg daily, patient is also on ferrous sulfate 325 mg daily. Echocardiogram performed 06/24/2022 revealed technically difficult study for interpretation. Definity was used. Normal left ventricular dimension and systolic function. Atrial fibrillation ablation 03/20/[address] Zhang. Review Of Systems: At the time of my evaluation: Constitutional: No fever, no chills. No weakness, fatigue or lethargy. EENT: No headache. No dizziness. Lungs: No shortness of breath, cough, no sputum production. No wheezing. Cardiovascular: No chest pain, no lower extremity edema. No palpitations. No p aroxysmal nocturnal dyspnea. No orthopnea. No lightheadedness or dizziness. No syncopal episodes. Abdominal: No abdominal pain. No nausea, vomiting. No diarrhea. No constipation. No bloody or tarry stools. Genitourinary: No dysuria.. No urinary retention. Musculoskeletal: No myalgias. No muscle weakness, no frequent falls. No back pain. No neck pain. Integumentary: No wounds. No rash. No unusual bruising. Neurologic: No aphasia. No facial droop. No change in mentation. No head injury. No headache. Physical examination: Gen: This is a 43-year-old male in no acute distress VS: reviewed blood pressure 126/80, heart rate 96 HEENT: Head is atraumatic, normocephalic. Pupils equal, round. Sclerae is anicteric. NECK: Supple. No JVD. LUNGS: Clear to auscultation. No wheezes or rhonchi. No intercostal retractions. HEART: Regular rate and rhythm. No murmur. ABDOMEN: Soft No tenderness. EXTREMITIES: No pedal edema. No calf tenderness. NEUROLOGICAL: Patient is awake, alert and oriented x3. Assessment: Sinus tachycardia Atypical chest pain most likely secondary to tachycardia History of DVT MTHFR gene mutation Obstructive sleep apnea Hypertension Strong family history of coronary artery disease Paroxysmal atrial fibrillation status post atrial fibrillation ablation in March 2022 Fever per patient. Temperature max documented as 99.8 Plan: Continue patient's home cardiac medications Continue telemetry monitoring overnight Obtain 2-D echocardiogram and Doppler study to assess cardiac structure and function Further recommendations to follow based upon clinical course Thank you kindly for this consultation. Nurse practitioner note has been reviewed, I agree with documented findings and plan of care. Patient was seen and examined. Past Medical History Past Medical History: Atrial Fibrillation, Asthma, Blood Disorder, Deep Vein Thrombosis (DVT), GERD/Reflux, Hearing Disorder / Deafness, Hypertension, Myocardial Infarction ([place]), Sleep Apnea/CPAP/BIPAP Additional Past Medical History / Comment(s): DVT X 3- LAST TIME 2012- LT LEG, LUMBAR DDD- . HAS HX MTHFR GENE MUTATION-POSITIVE FOR HETEROZYGOUS PER DR. FRANCISCO'S OFFICE, supposed to use CPAP, chronic swelling left lower leg Last Myocardial Infarction Date:: 09/2021 History of Any Multi-Drug Resistant Organisms: None Reported Past Surgical History: Bariatric Surgery, Cardiac Ablation, Heart Catheterization, Joint Replacement Additional Past Surgical History / Comment(s): LEFT KNEE REPLACEMENT, LT INDEX JOINT REPLACEMENT, PAIN CLINIC PROCEDURES, COLONOSCOPY, EGD. Gastric bypass 07-06-23 Past Anesthesia/Blood Transfusion Reactions: Previous Problems w/ Anesthesia, Family History of Problems w/ Anesthesia, Motion Sickness Additional Past Anesthesia/Blood Transfusion Reaction / Comment(s): HARD TO PUT TO SLEEP-(pt and father)-needs more than normal Past Psychological History: Depression Smoking Status: Never smoker Past Alcohol Use History: Occasional Past Drug Use History: None Reported - Past Family History Sister(s) Family Medical History: Cancer Additional Family Medical History / Comment(s): Skin cancer. Mother History Unknown: Yes Medications and Allergies Home Medications Medication Instructions Recorded Confirmed Type Omeprazole 40 mg PO DAILY 07/10/23 11/30/23 History Apixaban [Eliquis] 5 mg PO BID 10/08/23 11/30/23 History Atorvastatin [Lipitor] 40 mg PO HS 11/18/23 11/30/23 History Cyclobenzaprine HCl 10 mg PO QID PRN 11/18/23 11/30/23 History Ergocalciferol [Vitamin D2 (1250 1,250 mcg PO MO 11/18/23 11/30/23 History Mcg = 94651 Iu)] Famotidine [Pepcid] 20 mg PO DAILY 11/18/23 11/30/23 History Gabapentin [Neurontin] 400 mg PO TID 11/18/23 11/30/23 History Loratadine 10 mg PO BID 11/18/23 11/30/23 History Metoprolol Tartrate [Lopressor] 25 mg PO BID 11/18/23 11/30/23 History Spironolactone 50 mg PO DAILY 11/18/23 11/30/23 History Sucralfate [Carafate] 1 gm PO BID 11/18/23 11/30/23 History Valsartan 320 mg PO DAILY 11/18/23 11/30/23 History hydroCHLOROthiazide 25 mg PO DAILY 11/18/23 11/30/23 History Ferrous Sulfate [Feosol] 325 mg PO DAILY 11/30/23 11/30/23 History HYDROcodone/APAP 10-325MG [[place] 1 tab PO TID PRN 11/30/23 11/30/23 History 10-325] Magnesium Oxide [Magnesium] 1,000 mg PO DAILY 11/30/23 11/30/23 History Allergies Allergy/AdvReac Type Severity Reaction Status Date / Time No Known Allergies Allergy Verified 11/30/23 15:38 Physical Exam Vitals: Vital Signs Temp Pulse Resp BP Pulse Ox 12/01/23 08:55 96 126/80 96 12/01/23 06:26 98.3 F 89 19 131/80 100 12/01/23 05:14 57 L 19 12/01/23 00:20 80 18 117/84 96 11/30/23 17:42 99.8 F H 97 18 131/71 98 11/30/23 15:43 98.4 F 104 H 16 115/77 97 11/30/23 13:53 98.8 F 132 H 18 134/78 98 Results 11/30/23 14:54 11/30/23 14:54 Cardiac Enzymes 11/30/23 11/30/23 11/30/23 Range/Units 14:54 14:54 18:56 AST 21 (17-59) U/L Troponin I <0.012 <0.012 (0.000-0.034) ng/mL 11/30/23 Range/Units 21:08 AST (17-59) U/L Troponin I <0.012 (0.000-0.034) ng/mL CBC 11/30/23 Range/Units 14:54 WBC 12.4 H (3.8-10.6) k/uL RBC 5.44 (4.30-5.90) m/uL Hgb 14.8 (13.0-17.5) gm/dL Hct 45.2 (39.0-53.0) % Plt Count 400 (150-450) k/uL Comprehensive Metabolic Panel 11/30/23 Range/Units 14:54 Sodium 139 (137-145) mmol/L Potassium 4.6 (3.5-5.1) mmol/L Chloride 103 (98-107) mmol/L Carbon Dioxide 29 (22-30) mmol/L BUN 13 (9-20) mg/dL Creatinine 0.91 (0.66-1.25) mg/dL Glucose 93 (74-99) mg/dL Calcium 9.7 (8.4-10.2) mg/dL AST 21 (17-59) U/L ALT 18 (4-49) U/L Alkaline Phosphatase 89 (38-126) U/L Total Protein 6.8 (6.3-8.2) g/dL Albumin 4.2 (3.5-5.0) g/dL Current Medications Generic Name Dose Route Start Last Admin Trade Name Freq PRN Reason Stop Dose Admin Hydrocodone Bitart/Acetaminophen 1 each 11/30/23 16:46 12/01/23 09:27 Hydrocodone/Apap 10-325mg 1 Each Tab PO 1 each TID PRN Administration Pain Apixaban 5 mg 11/30/23 21:00 12/01/23 09:22 Apixaban 5 Mg Tab PO 5 mg BID [facility] Administration Protocol Aspirin 81 mg 12/01/23 09:00 12/01/23 09:22 Aspirin 81 Mg PO 81 mg DAILY [facility]ARD Administration Atorvastatin Calcium 40 mg 11/30/23 21:00 11/30/23 21:26 Atorvastatin 40 Mg Tab PO 40 mg HS [facility] Administration Famotidine 20 mg 12/01/23 09:00 12/01/23 09:23 Famotidine 20 Mg Tab PO 20 mg DAILY LEONARD Administration Ferrous Sulfate 325 mg 12/01/23 09:00 12/01/23 09:23 Ferrous Sulfate 325 Mg Tab PO 325 mg DAILY [facility]ONARD Administration Gabapentin 400 mg 11/30/23 22:00 12/01/23 09:27 Gabapentin 400 Mg Cap PO 400 mg TID [facility] Administration Hydrochlorothiazide 25 mg 12/01/23 09:00 12/01/23 09:23 Hydrochlorothiazide 25 Mg Tab PO 25 mg DAILY [facility] Administration Metoprolol Tartrate 25 mg 11/30/23 21:00 12/01/23 09:23 Metoprolol Tartrate 25 Mg Tab PO 25 mg BID [facility] Administration Nitroglycerin 0.4 mg 11/30/23 16:29 Nitroglycerin Sl Tabs 0.4 Mg Tab SUBLINGUAL Q5M PRN Chest Pain Nitroglycerin 1 inch 11/30/23 18:00 12/01/23 05:34 Nitroglycerin Oint 1 Inch/Gm Packet TOPICAL Not Given Q6HR [facility] Pantoprazole Sodium 40 mg 12/01/23 07:30 01/23/24 09:23 Pantoprazole 40 Mg Tablet PO 40 mg [id number] [facility] Administration Spironolactone 50 mg 12/01/23 09:00 12/01/23 09:23 Spironolactone 25 Mg Tab PO 50 mg DAILY [facility] Administration Sucralfate 1 gm 11/30/23 21:00 12/01/23 09:23 Sucralfate 1 Gm Tab PO 1 gm BID [facility] Administration Valsartan 320 mg 12/01/23 09:00 12/01/23 09:48 Valsartan 160 Mg Tab PO 320 mg DAILY [facility] Administration 11/30/23 14:54 11/30/23 14:54
--- NOTE | 2023-12-01 12:26 | P.PN ---
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 He presented to the emergency department with a chief complaint of palpitations, chest pain, and dizziness/lightheadedness. He underwent full evaluation in the emergency department. Vital signs upon arrival show blood pressure 134/78, heart rate 132, respiratory rate 18, temp 98.8F, and SpO2 of 98% on room air. EKG was completed showing sinus tachycardia at 121 bpm with T-wave inversion in lateral leads 2 and aVL. Chest x-ray completed negative for acute cardiopulmonary process. Labs completed and reviewed. CBC showing mild cytosis with WBC count of 12.4. BMP unremarkable. Lactic acid normal findings at 2.0. Magnesium also normal findings at 2.0. Liver profile unremarkable. Troponin negative at less than 0.012. Influenza A, influenza B, RSV, and Covid PCR negative. Patient admitted under our services with consultation cardiology. Patient reports that he follows with Dr. Wolfe with [facility]. Troponins trended overnight all negative at less than 0 .012 x 3 draws. CTA chest completed with radiology report stating no CT evidence for pulmonary embolism and no pericardial effusion, revealing slightly suboptimal opacification of pulmonary arteries and branches but no filling defects are reported. Physical exam: Patient seen and evaluated at bedside this morning. Reports feeling slightly better but continues to have mild pain/pressure to midsternal chest and also reports acute on chronic lower back pain with pain radiating down the left leg. Vital signs reviewed and stable. General: Nontoxic, no distress and appears stated age. Derm: Skin warm and dry, normal coloration for ethnicity. Head: Atraumatic, normocephalic and symmetric. Eyes: EOMs intact, no lid lag, and anicteric sclera Mouth: no lip lesions, mucus membranes moist Cardiovascular: tachycardic rate with regular rhythm, normal S1S2, no murmur, positive posterior tibial pulses bilaterally, and cap refill < 2 seconds. Lungs: Respirations even, regular, and unlabored on room air. Lungs CTA bilaterally, no rhonchi, no rales, no wheezing, and no accessory muscle usage. Abdominal: soft, nontender to palpation, no guarding, no appreciable organomegaly Ext: ROM intact. No gross muscle atrophy, no edema, no contractures Neuro: Speech clear, face symmetrical and CN II-XII grossly intact with no noted focal neuro deficits Psych: Alert and oriented to person, place, time, and situation. Appropriate and pleasant affect. Assessment and Plan of Care: Chest pain, palpitations and dizziness/lightheadedness, acute coronary event ruled out Sinus tachycardia History of atrial fibrillation with recurrent DVTs History of CAD Hypertension Hyperlipidemia MTHFR gene mutation -Cardiology consulted, appreciate further recommendations -Telemetry monitoring -Troponins negative at less than 0.012 x 3 draws. -TSH was low at 0.321 however free T4 normal findings at 1.16. -CTA chest completed with radiology report stating no CT evidence for pulmonary embolism and no pericardial effusion, revealing slightly suboptimal opacification of pulmonary arteries and branches but no filling defects are reported. -Cardiac diet -Continue cardiac medication regimen with aspirin 81 mg daily, Eliquis 5 mg twice daily, atorvastatin 40 mg nightly, hydrochlorothiazide 25 mg daily, metoprolol 25 mg twice daily, Aldactone 50 mg daily, and valsartan 320 mg daily. -Lipid profile pending. -Echocardiogram completed 06/24/22 showing preserved EF of 55-60%. Will defer ordering of repeat echocardiogram to cleaning validation consultant per their discretion. GERD History of gastric bypass 06/2023 Continue daily medication regimen with omeprazole 40 mg daily, Pepcid 20 mg daily, and Carafate 1 g twice daily. Order placed for GI cocktail 1 dose secondary to patient's reports of chest tightness and burning. Patient recently underwent gallbladder ultrasound on 11/19/23 and report reviewed showing mild fatty infiltration of liver with borderline hepatic enlargement and HIDA scan on 10/27/23 which showed gallbladder ejection fraction to be calculated at 72% upper limits of the normal range. Data and imaging reviewed: Vital signs reviewed. Blood pressure 126/80, heart rate 96, respiratory rate 19, temp 98.3 F, SpO2 of 96% on room air. Troponins trended overnight all negative at less than 0.012 x 3 draws. TSH low at 0.321 however free T4 was normal at 1.16. CODE STATUS: Full code DVT prophylaxis: Eliquis Anticipated discharge date: Anticipate discharge within the next [address]: Home Patient was seen independently by Nurse Practitioner. This document was prepared using [employer] dictation software. Please allow for errors in mailroom coordinator while rare they do occur. Jacob Ying [employer]AV[employer] EQUIPMENT OPERATOR rendered care for this patient independently, reviewed the findings and plan as documented in the note above. I did not physically speak with or examine the patient on this date. Objective - Vital Signs Vital signs: Vital Signs Temp 98.3 F 12/01/23 06:26 Pulse 96 12/01/23 08:55 Resp 19 12/01/23 06:26 BP 126/80 12/01/23 08:55 Pulse Ox 96 12/01/23 08:55 FiO2 Intake & Output 11/30/23 12/01/23 12/01/23 18:59 06:59 18:59 Weight 154.221 kg - Labs CBC & Chem 7: 11/30/23 14:54 11/30/23 14:54 Labs: Abnormal Lab Results - Last 24 Hours (Table) 11/30/23 11/30/23 Range/Units 14:54 14:54 WBC 12.4 H (3.8-10.6) k/uL Neutrophils # 9.8 H (1.3-7.7) k/uL TSH 0.321 L (0.465-4.680) mIU/L
[2023-12-01 13:42] LABS: HCT 43.4 % (39.6-50.0); HGB 12.9 g/dL (13.0-17.0); MCH 25.6 pg (27.0-32.0); MCHC 29.7 g/dL (32.0-37.0); MCV 86.3 FL (80.0-97.0); Mean Platelet Volume 9.4 FL (9.5-12.2); NRBC Per 100 WBC 0 X 10*3/uL (0.00-0.01); Platelet Count 334 X 10*3/uL (140-440); RBC 5.03 X 10*6/uL (4.40-5.60); RDW 14.4 % (11.5-14.5); WBC 11.09 X 10*3/uL (4.50-10.00)
[2023-12-01 13:51] LABS: ALT 11 U/L (10-49); AST 14 U/L (14-35); Albumin 3.8 g/dL (3.8-4.9); Alkaline Phosphatase 79 U/L (41-126); BUN/Creat Ratio 11.27 Ratio (12.00-20.00); Blood Urea Nitrogen 12.4 mg/dL (9.0-27.0); Calcium 9.9 mg/dL (8.7-10.3); Carbon Dioxide 27.5 mmol/L (21.6-31.8); Chloride 103 mmol/L (96-109); Chol/HDL Ratio 4.73 Ratio; Glucose 108 mg/dL (70-110); LDL Cholesterol,Calculated 95.9 mg/dL (0.0-131.0); Sodium 141 mmol/L (135-145); Total Bilirubin 0.5 mg/dL (0.3-1.2); Total Protein 5.8 g/dL (6.2-8.2)
--- NOTE | 2023-12-01 17:58 | CA ---
Transthoracic Echo Report Name: Jose Juan Crisostomo Age: 43 Gender: M : 1980 Exam Date: 12/01/2023 14:59 Exam Location: [facility] Ht (in): 75 Wt (lb): 340 Ordering Physician: Rosa Champion Attending/Referring Phys: [id number], Jaycee Brush Finisher Ashok Edmondson RD Procedure CPT: Indications: LVF Cardiac Hx: Technical Quality: Very technically difficult study Contrast 1: Total Dose (mL): Contrast 2: Total Dose (mL): MEASUREMENTS (Male / Female) Normal Values 2D ECHO LV Diastolic Diameter PLAX 4.8 cm 4.2 - 5.9 / 3.9 - 5.3 cm LV Systolic Diameter PLAX 3.4 cm IVS Diastolic Thickness 1.3 cm 0.6 - 1.0 / 0.6 - 0.9 cm LVPW Diastolic Thickness 1.4 cm 0.6 - 1.0 / 0.6 - 0.9 cm LV Relative Wall Thickness 0.6 RV Internal Dim ED PLAX 3.1 cm LVOT Diameter 2.6 cm Aortic Root Diameter 3.4 cm LA Systolic Diameter LX 2.8 cm 3.0 - 4.0 / 2.7 - 3.8 cm LV Diastolic Volume MOD 4C 105.3 cm??? LV Diastolic Length 4C 8.3 cm LA Volume 62.5 cm??? 18 - 58 / 22 - 52 cm??? LA Volume Index 21.4 cm???/m??? 16 - 28 cm???/m??? Ascending Aorta Diameter 3.0 cm DOPPLER AV Peak Velocity 111.7 cm/s AV Peak Gradient 5.0 mmHg LVOT Peak Velocity 111.8 cm/s LVOT Peak Gradient 5.0 mmHg LVOT Velocity Time Integral 21.5 cm LVOT Stroke Volume 114.4 cm??? LVOT Stroke Volume Index 41.6 ml/m??? LVOT Cardiac Index 3173.8 cm???/min???m??? AV Area Cont Eq pk 5.3 cm??? MV Peak Velocity 69.9 cm/s MV Peak Gradient 2.0 mmHg MV Mean Velocity 30.4 cm/s MV Mean Gradient 0.5 mmHg MV Velocity Time Integral 19.2 cm Mitral E Point Velocity 65.4 cm/s Mitral A Point Velocity 38.1 cm/s Mitral E to A Ratio 1.7 MV Deceleration Time 163.5 ms MV E' Velocity 11.8 cm/s Mitral E to MV E' Ratio 5.6 TR Peak Velocity 115.4 cm/s TR Peak Gradient 5.3 mmHg Right Ventricular Systolic Press 10.3 mmHg FINDINGS Left Ventricle Normal LV size. Mild concentric LVH. Left ventricular ejection fraction is estimated at 50 %. Right Ventricle Normal right ventricular size. Right Atrium Normal right atrial size. Left Atrium Normal left atrial size. Mitral Valve Structurally normal mitral valve. No mitral regurgitation. Aortic Valve Aortic valve not well visualized. No aortic valve stenosis or regurgitation. Tricuspid Valve Tricuspid valve not well visualized. Trace TR. Pulmonic Valve Pulmonic valve not well visualized. No pulmonic regurgitation. Pericardium Not well visualized. Aorta Normal size aortic root and proximal ascending aorta. CONCLUSIONS Technically difficult study for interpretation Low normal LV systolic function. The EF is at 50% Previewed by: Dr. Perfecto Cartagena MD (Electronically Signed) Final Date: 01 December 2023 17:57
[2023-12-02] MEDS: HYDROcodone/APAP 10-325MG 1 EACH TAB PO PRN ×3 (01:09→23:28)
[2023-12-02] MEDS: NITROGLYCERIN OINT 1 INCH/GM PACKET TOPICAL SCH ×4 (05:11→23:28)
[2023-12-02] MEDS: PANTOPRAZOLE 40 MG TABLET PO SCH (05:59)
[2023-12-02] MEDS: FERROUS SULFATE 325 MG TAB PO SCH (09:33)
[2023-12-02] MEDS: ASPIRIN 81 MG PO SCH (09:33)
[2023-12-02] MEDS: GABAPENTIN 400 MG CAP PO SCH ×3 (09:33→20:59)
[2023-12-02] MEDS: SUCRALFATE 1 GM TAB PO SCH ×2 (09:33→20:59)
[2023-12-02] MEDS: hydroCHLOROthiazide 25 MG TAB PO SCH (09:34)
[2023-12-02] MEDS: SPIRONOLACTONE 25 MG TAB PO SCH (09:34)
[2023-12-02] MEDS: FAMOTIDINE 20 MG TAB PO SCH (09:34)
--- NOTE | 2023-12-02 10:05 | P.PN ---
Subjective Progress Note Date: 12/02/23 Consult reason: chest pain (dyspnea) History of present illness: History of present illness: This is a 43-year-old male patient of Dr. Wolfe with past medical history of DVT on long-term anticoagulation with Eliquis, MTHFR gene mutation, obstructive sleep apnea, hypertension, strong family history of coronary artery disease, normal coronary arteries on heart catheterization, paroxysmal atrial fibrillation status post atrial fibrillation ablation in March [address] Zhang, chronic venous insufficiency. We have been asked to evaluate the patient for chest pain and dyspnea. Patient is seen today in the emergency center waiting for a bed on the observation unit. Patient states he had sudden onset that her heart rate was elevated and also experienced chest pain with this that was achy and tight. He also had a little lightheadedness and dizziness without syncope. He states his heart rate at the time was 145 bpm. Patient also voiced concern that he was in atrial fibrillation. He states he has been taking all of his medications as directed. He had a temperature of 100.1. Patient denies any sick contacts, no fevers. Reviewed telemetry and EKGs with no sign of atrial fibrillation. Patient is also complaining of back pain going down his leg. EKG sinus tach at 121 bpm CTA of the chest: No acute cardiopulmonary disease. Distal subsegmental branch emboli cannot be entirely excluded. Chest x-ray: No acute finding. WBC 12.4, hemoglobin 14.8, platelet count 400. Electrolytes, renal function, liver function test are all within normal limits. TSH 0.321, free T4 normal at 1.16. Troponin negative x 3. Home cardiac medications: Eliquis 5 mg twice daily, atorvastatin 40 mg at bedtime, hydrochlorothiazide 25 mg daily, magnesium oxide 1000 mg daily, Lopressor 25 mg twice daily, spironolactone 50 mg daily, valsartan 320 mg daily, patient is also on ferrous sulfate 325 mg daily. Echocardiogram performed 06/24/2022 revealed technically difficult study for interpretation. Definity was used. Normal left ventricular dimension and systolic function. Atrial fibrillation ablation 03/20/[address] Zhang. 12/02 Patient is seen today in follow-up on the observation unit. He denies having any chest pain or shortness of breath, no lightheadedness or dizziness. No palpitations. He states he has been ambulating without any symptoms. Heart rate has been in the 70s and 80s, blood pressure 135/79, pulse ox 96% on room air. Telemetry sinus rhythm Physical examination: Gen: This is a 43-year-old male in no acute distress VS: reviewed HEENT: Head is atraumatic, normocephalic. Pupils equal, round. Sclerae is anicteric. NECK: Supple. No JVD. LUNGS: Clear to auscultation. No wheezes or rhonchi. No intercostal retractio ns. HEART: Regular rate and rhythm. No murmur. ABDOMEN: Soft No tenderness. EXTREMITIES: No pedal edema. No calf tenderness. NEUROLOGICAL: Patient is awake, alert and oriented x3. Assessment: Sinus tachycardia Atypical chest pain most likely secondary to tachycardia History of DVT MTHFR gene mutation Obstructive sleep apnea Hypertension Strong family history of coronary artery disease Paroxysmal atrial fibrillation status post atrial fibrillation ablation in March 2022 Fever per patient. Temperature max documented as 99.8 Plan: Continue patient's home cardiac medications Schedule patient for exercise stress test today. If this testing is within normal limits, patient is cleared for discharge and may follow-up with Dr. Wolfe in 2 weeks. Nurse practitioner note has been reviewed, I agree with documented findings and plan of care. Patient was seen and examined. Objective - Vital Signs Vital signs: Vital Signs Temp 98.2 F 12/02/23 07:00 Pulse 84 12/02/23 07:00 Resp 16 12/02/23 07:00 BP 135/79 12/02/23 07:00 Pulse Ox 96 12/02/23 07:00 FiO2 Intake & Output 12/01/23 12/02/23 12/02/23 18:59 06:59 18:59 Weight 154.221 kg Other: Voiding Method Toilet # Voids 3 2 - Labs CBC & Chem 7: 12/01/23 06:34 12/01/23 06:34 Labs: Abnormal Lab Results - Last 24 Hours (Table) 12/01/23 12/01/23 Range/Units 06:34 06:34 WBC 11.09 H (4.50-10.00) X 10*3/uL Hgb 12.9 L (13.0-17.0) g/dL MCH 25.6 L (27.0-32.0) pg MCHC 29.7 L (32.0-37.0) g/dL MPV 9.4 L (9.5-12.2) FL BUN/Creatinine Ratio 11.27 L (12.00-20.00) Ratio Total Protein 5.8 L (6.2-8.2) g/dL Triglycerides 179.00 H (0.00-149.00) mg/dL HDL Cholesterol 35.30 L (40.00-60.00) mg/dL
[2023-12-02] MEDS ORDERED: AMINOPHYLLINE 500 MG/20 ML VIAL IV PRN (10:27)
[2023-12-02] MEDS ORDERED: REGADENOSON 0.4 MG/5 ML SYRINGE IV PRN (10:27)
[2023-12-02] MEDS ORDERED: CAFFEINE CITRATE 60 MG/3 ML VIAL IV PRN (10:27)
--- NOTE | 2023-12-02 11:23 | P.PN ---
Subjective Progress Note Date: 12/02/23 Hospital Course: Patient is a pleasant 43-year-old male with a past medical history of CAD, atrial fibrillation and recurrent DVTs on anticoagulation with Eliquis, MTHFR gene mutation, hypertension, hyperlipidemia, GERD, gastric bypass 06/2023, and obstructive sleep apnea. He presented to the emergency department with a chief complaint of palpitations, chest pain, and dizziness/lightheadedness. He underwent full evaluation in the emergency department. Vital signs upon arrival show blood pressure 134/78, heart rate 132, respiratory rate 18, temp 98.8F, and SpO2 of 98% on room air. EKG was completed showing sinus tachycardia at 121 bpm with T-wave inversion in lateral leads 2 and aVL. Chest x-ray completed negative for acute cardiopulmonary process. Labs completed and reviewed. CBC showing mild cytosis with WBC count of 12.4. BMP unremarkable. Lactic acid normal findings at 2.0. Magnesium also normal findings at 2.0. Liver profile unremarkable. Troponin negative at less than 0.012. Influenza A, influenza B, RSV, and Covid PCR negative. Patient admitted under our services with consultation cardiology. Patient reports that he follows with Dr. Wolfe with [facility]. Troponins trended overnight all negative at less than 0 .012 x 3 draws. CTA chest completed with radiology report stating no CT evidence for pulmonary embolism and no pericardial effusion, revealing slightly suboptimal opacification of pulmonary arteries and branches but no filling defects are reported. Physical exam: Patient seen and evaluated at bedside this morning. Reports continued light pressure to midsternal chest and acute on chronic back pain radiating down left leg and into the arches of his foot. Patient taking [place] for pain management. Vital signs reviewed and stable. General: Nontoxic, no distress and appears stated age. Derm: Skin warm and dry, normal coloration for ethnicity. Head: Atraumatic, normocephalic and symmetric. Eyes: EOMs intact, no lid lag, and anicteric sclera Mouth: no lip lesions, mucus membranes moist Cardiovascular: tachycardic rate with regular rhythm, normal S1S2, no murmur, positive posterior tibial pulses bilaterally, and cap refill < 2 seconds. Lungs: Respirations even, regular, and unlabored on room air. Lungs CTA bilaterally, no rhonchi, no rales, no wheezing, and no accessory muscle usage. Abdominal: soft, nontender to palpation, no guarding, no appreciable organomegaly Ext: ROM intact. No gross muscle atrophy, no edema, no contractures Neuro: Speech clear, face symmetrical and CN II-XII grossly intact with no noted focal neuro deficits Psych: Alert and oriented to person, place, time, and situation. Appropriate and pleasant affect. Assessment and Plan of Care: Chest pain, palpitations and dizziness/lightheadedness, acute coronary event ruled out Sinus tachycardia History of atrial fibrillation with recurrent DVTs History of CAD Hypertension Hyperlipidemia MTHFR gene mutation -Cardiology Following, taking patient for Lexiscan stress test later today. -Telemetry monitoring -Troponins were negative at less than 0.012 x 3 draws. -TSH was low at 0.321 however free T4 normal findings at 1.16. -CTA chest completed with radiology report stating no CT evidence for pulmonary embolism and no pericardial effusion, revealing slightly suboptimal opac ification of pulmonary arteries and branches but no filling defects are reported. -Cardiac diet -Continue cardiac medication regimen with aspirin 81 mg daily, Eliquis 5 mg twice daily, atorvastatin 40 mg nightly, hydrochlorothiazide 25 mg daily, metoprolol 25 mg twice daily, Aldactone 50 mg daily, and valsartan 320 mg daily. -Lipid profile showing elevated triglycerides of 179 and low HDL of 35.30. Patient started on fenofibrate 160 mg daily in addition to atorvastatin 40 mg daily. -Echocardiogram completed 06/24/22 showing preserved EF of 55-60%. Will defer ordering of repeat echocardiogram to resume specialist per their discretion. GERD History of gastric bypass 06/2023 Continue daily medication regimen with omeprazole 40 mg daily, Pepcid 20 mg daily, and Carafate 1 g twice daily. Order placed for GI cocktail 1 dose secondary to patient's reports of chest tightness and burning. Patient recently underwent gallbladder ultrasound on 11/19/23 and report reviewed showing mild fatty infiltration of liver with borderline hepatic enlargement and HIDA scan on 10/27/23 which showed gallbladder ejection fraction to be calculated at 72% upper limits of the normal range. Data and imaging reviewed: Vital signs reviewed. Blood pressure 135/79, heart rate 84, respiratory rate 16, temp 98.2 F, and SpO2 of 96% on room air. Lipid profile showing elevated triglycerides of 179 and low HDL of 35.30. CODE STATUS: Full code DVT prophylaxis: Eliquis Anticipated discharge date: Anticipate discharge within the next 24 hours, likely today if stress is negative. Anticipated discharge place: Home Patient was seen independently by Nurse Practitioner. This document was prepared using [employer] dictation software. Please allow for errors in actionscript developer while rare they do occur. Jacob Ying TEMPERING OVEN OPERATOR rendered care for this patient independently, reviewed the findings and plan as documented in the note above. I did not physically speak with or examine the patient on this date. Objective - Vital Signs Vital signs: Vital Signs Temp 98.2 F 12/02/23 07:00 Pulse 84 12/02/23 07:00 Resp 16 12/02/23 07:00 BP 135/79 12/02/23 07:00 Pulse Ox 96 12/02/23 07:00 FiO2 Intake & Output 12/01/23 12/02/23 12/02/23 18:59 06:59 18:59 Weight 154.221 kg Other: Voiding Method Toilet # Voids 3 2 - Labs CBC & Chem 7: 12/01/23 06:34 12/01/23 06:34 Labs: Abnormal Lab Results - Last 24 Hours (Table) 12/01/23 12/01/23 Range/Units 06:34 06:34 WBC 11.09 H (4.50-10.00) X 10*3/uL Hgb 12.9 L (13.0-17.0) g/dL MCH 25.6 L (27.0-32.0) pg MCHC 29.7 L (32.0-37.0) g/dL MPV 9.4 L (9.5-12.2) FL BUN/Creatinine Ratio 11.27 L (12.00-20.00) Ratio Total Protein 5.8 L (6.2-8.2) g/dL Triglycerides 179.00 H (0.00-149.00) mg/dL HDL Cholesterol 35.30 L (40.00-60.00) mg/dL
[2023-12-02] MEDS: VALSARTAN 160 MG TAB PO SCH (11:27)
[2023-12-02] MEDS: METOPROLOL TARTRATE 25 MG TAB PO SCH ×2 (11:27→20:59)
[2023-12-02] MEDS: APIXABAN 5 MG TAB PO SCH ×2 (15:33→20:59)
[2023-12-02] MEDS: FENOFIBRATE 160 MG TAB PO SCH (15:33)
--- NOTE | 2023-12-02 16:47 | NM ---
EXAMINATION TYPE: NM stress lexiscan cardiolite DATE OF EXAM: 12/02/2023 COMPARISON: NONE CLINICAL INDICATION: Male, 43 years old with history of cp; TECHNIQUE: After the intravenous administration of 9.8 mCi Tc 99m Sestamibi - Cardiolite resting SPE CT images acquired 45 minutes post injection. The patient received 0.4mg Lexiscan, 25.5 mCi Tc 99m Sestamibi - Stress images obtained [address] injection FINDINGS: Review of stress and rest SPECT images demonstrates defect along the anterior mid to apical wall. Thi s is most pronounced on rest images suggesting attenuation artifact. Gated analysis shows normal wall motion with an estimated left ventricular ejection fraction of 60 %. TID is calculated at 0.97. IMPRESSION: Perfusion defect involving the anterior wall is more pronounced on rest images suggesting attenuation artifact. No definite reversibility is identified.
[2023-12-02] MEDS: ATORVASTATIN 40 MG TAB PO SCH (20:59)
[2023-12-03 03:32] VITALS: RESP 18
[2023-12-03] MEDS: NITROGLYCERIN OINT 1 INCH/GM PACKET TOPICAL SCH (05:37)
[2023-12-03] MEDS: PANTOPRAZOLE 40 MG TABLET PO SCH (06:00)
[2023-12-03 08:20] VITALS: BP 111/68; PULSE 79; TEMP 97.9
[2023-12-03] MEDS: FAMOTIDINE 20 MG TAB PO SCH (08:37)
[2023-12-03] MEDS: hydroCHLOROthiazide 25 MG TAB PO SCH (08:37)
[2023-12-03] MEDS: HYDROcodone/APAP 10-325MG 1 EACH TAB PO PRN (08:37)
[2023-12-03] MEDS: GABAPENTIN 400 MG CAP PO SCH (08:38)
[2023-12-03] MEDS: APIXABAN 5 MG TAB PO SCH (08:38)
[2023-12-03] MEDS: VALSARTAN 160 MG TAB PO SCH (08:38)
[2023-12-03] MEDS: SPIRONOLACTONE 25 MG TAB PO SCH (08:38)
[2023-12-03] MEDS: ASPIRIN 81 MG PO SCH (08:38)
[2023-12-03] MEDS: METOPROLOL TARTRATE 25 MG TAB PO SCH (08:39)
[2023-12-03] MEDS: FERROUS SULFATE 325 MG TAB PO SCH (08:39)
[2023-12-03] MEDS: SUCRALFATE 1 GM TAB PO SCH (08:39)
[2023-12-03] MEDS: FENOFIBRATE 160 MG TAB PO SCH (08:39)
--- NOTE | 2023-12-03 10:32 | CA ---
Lexiscan Nuclear Stress Test Report Name: Jose Juan Crisostomo Exam Date: 12/02/2023 12:38 Exam Location: [place] Stress Ht (in): 73 Wt (lb): 345 BSA: 2.71 Ordering Phys: Rosa Champion Referring Phys: PERFECTO CARTAGENA,, Technologist: Bernard Haddad Age: 43 Gender: M : 1980 Procedure CPT: Indications: Reflex order-Stress test ICD-10 Codes: Patient History: Medications: SEE CHART Meds past 24 hrs: Pretest Chest Pain: STRESS TEST Lexiscan Protocol Exercise Duration (min:sec): 02:[address] Depressions (mm): Angina Score: Herbert Score: Resting HR (bpm): 75 Peak HR (bpm): 98 Resting BP (mmHg): 114 / 88 Peak BP (mmHg): 132 / 66 MPHR: 176 Target HR: 150 % MPHR: 56 METS: 1.0 Total Dose: Peak Dose: Atropine: Double Product: 12692 BP Response: Stress Termination: PROTOCOL COMPLETE Stress Symptoms: NO SYMPTOMS Stress Summary: ECG ANALYSIS Resting ECG: Stress ECG: CONCLUSIONS Nonspecific EKG changes in response to Lexiscan Dr. Perfecto Cartagena MD (Electronically Signed) Final Date: 03 December 2023 10:31
--- NOTE | 2023-12-03 11:33 | P.DS ---
Providers Date of admission: 11/30/23 16:32 Expected date of discharge: 12/03/23 Attending physician: Sintia Landaverde MD Consults: 11/30/23 16:30 Consult Physician Urgent Consulting Provider: [facility] Consult Reason/Comments: Chest pain, dyspnea Do you want consulting provider notified?: Yes Primary care physician: Aden Diaz MD Hospital Course: Discharge Diagnosis: Chest pain, palpitations and dizziness/lightheadedness, acute coronary event ruled out. Continue cardiac medication regimen with aspirin 81 mg daily, Eliquis 5 mg twice daily, atorvastatin 40 mg nightly, hydrochlorothiazide 25 mg daily, metoprolol 25 mg twice daily, Aldactone 50 mg daily, and valsartan 320 mg daily.Lipid profile showing elevated triglycerides of 179 and low HDL of 35.30. Patient started on fenofibrate 160 mg daily in addition to above medications. Echocardiogram revealed EF of 50% and Lexiscan stress test was negative. Sinus tachycardia, resolved without intervention. History of atrial fibrillation with recurrent DVTs History of CAD Hypertension Hyperlipidemia MTHFR gene mutation GERD History of gastric bypass 06/2023 Hospital Course: Patient is a pleasant 43-year-old male with a past medical history of CAD, atrial fibrillation and recurrent DVTs on anticoagulation with Eliquis, MTHFR gene mutation, hypertension, hyperlipidemia, GERD, gastric bypass 06/2023, and ob structive sleep apnea. He presented to the emergency department with a chief complaint of palpitations, chest pain, and dizziness/lightheadedness. He underwent full evaluation in the emergency department. Vital signs upon arrival show blood pressure 134/78, heart rate 132, respiratory rate 18, temp 98.8F, and SpO2 of 98% on room air. EKG was completed showing sinus tachycardia at 121 bpm with T-wave inversion in lateral leads 2 and aVL. Chest x-ray completed negative for acute cardiopulmonary process. Labs completed and reviewed. CBC showing mild cytosis with WBC count of 12.4. BMP unremarkable. Lactic acid normal findings at 2.0. Magnesium also normal findings at 2.0. Liver profile unremarkable. Troponin negative at less than 0.012. Influenza A, influenza B, RSV, and Covid PCR negative. Patient admitted under our services with consultation cardiology. Patient reports that he follows with Dr. Wolfe with [facility]. Troponins trended overnight all negative at less than 0.012 x 3 draws. CTA chest completed with radiology report stating no CT evidence for pulmonary embolism and no pericardial effusion, revealing slightly suboptimal opacification of pulmonary arteries and branches but no filling defects are reported.. Patient was evaluated by tin can feeder and a repeat echocardiogram was completed showing an EF of 50% with no significant valvular or structural abnormalities reported. Patient then underwent a Lexiscan stress test which was reviewed by tin can feeder and negative showing no signs of reversible ischemia. Cardiology clearing patient from cardiac perspective recommending outpatient follow-up in their office in 2 weeks. Medically, patient is stable at this time and stable for discharge home. Patient to follow-up outpatient with PCP in 1 to 2 days and with tin can feeder in 1 to 2 weeks. Physical exam: Vital signs reviewed and stable. General: Nontoxic, no distress and appears stated age. Derm: Skin warm and dry, normal coloration for ethnicity. Head: Atraumatic, normocephalic and symmetric. Eyes: EOMs intact, no lid lag, and anicteric sclera Mouth: no lip lesions, mucus membranes moist Cardiovascular: tachycardic rate with regular rhythm, normal S1S2, no murmur, positive posterior tibial pulses bilaterally, and cap refill < 2 seconds. Lungs: Respirations even, regular, and unlabored on room air. Lungs CTA bilaterally, no rhonchi, no rales, no wheezing, and no accessory muscle usage. Abdominal: soft, nontender to palpation, no guarding, no appreciable organomegaly Ext: ROM intact. No gross muscle atrophy, no edema, no contractures Neuro: Speech clear, face symmetrical and CN II-XII grossly intact with no noted focal neuro deficits Psych: Alert and oriented to person, place, time, and situation. Appropriate and pleasant affect. A total of 33 minutes of time were spent preparing this complex discharge summary. Pt was discharged on 12/03/2023 at 11:32 AM. Patient was seen independently by Nurse Practitioner. This document was prepared using [employer] dictation software. Please allow for errors in lacing cutter while rare they do occur. Jacob Ying NP rendered care for this patient independently, reviewed the findings and plan as documented in the note above. I did not physically speak with or examine the patient on this date. Patient Condition at Discharge: Stable Plan - Discharge Summary New Discharge Prescriptions: New Fenofibrate [Lofibra] 160 mg PO DAILY 30 Days #30 tab Continue Loratadine 10 mg PO BID Metoprolol Tartrate [Lopressor] 25 mg PO BID Cyclobenzaprine HCl 10 mg PO QID PRN PRN Reason: Pain Famotidine [Pepcid] 20 mg PO DAILY Valsartan 320 mg PO DAILY Ergocalciferol [Vitamin D2 (1250 Mcg = 39209 Iu)] 1,250 mcg PO MO Magnesium Oxide [Magnesium] 1,000 mg PO DAILY Ferrous Sulfate [Iron (65 MG Elemental)] 325 mg PO DAILY Omeprazole 40 mg PO DAILY Apixaban [Eliquis] 5 mg PO BID Gabapentin [Neurontin] 400 mg PO TID Atorvastatin [Lipitor] 40 mg PO HS hydroCHLOROthiazide 25 mg PO DAILY Spironolactone 50 mg PO DAILY Sucralfate [Carafate] 1 gm PO BID HYDROcodone/APAP 10-325MG [[place] 10-325] 1 tab PO TID PRN PRN Reason: Pain Discharge Medication List Omeprazole 40 mg PO DAILY 07/10/23 [History] Apixaban [Eliquis] 5 mg PO BID 10/08/23 [History] Atorvastatin [Lipitor] 40 mg PO HS 11/18/23 [History] Cyclobenzaprine HCl 10 mg PO QID PRN 11/18/23 [History] Ergocalciferol [Vitamin D2 (1250 Mcg = 68636 Iu)] 1,250 mcg PO MO 11/18/23 [History] Famotidine [Pepcid] 20 mg PO DAILY 11/18/23 [History] Gabapentin [Neurontin] 400 mg PO TID 11/18/23 [History] Loratadine 10 mg PO BID 11/18/23 [History] Metoprolol Tartrate [Lopressor] 25 mg PO BID 11/18/23 [History] Spironolactone 50 mg PO DAILY 11/18/23 [History] Sucralfate [Carafate] 1 gm PO BID 11/18/23 [History] Valsartan 320 mg PO DAILY 11/18/23 [History] hydroCHLOROthiazide 25 mg PO DAILY 11/18/23 [History] Ferrous Sulfate [Iron (65 MG Elemental)] 325 mg PO DAILY 11/30/23 [History] HYDROcodone/APAP 10-325MG [[place] 10-325] 1 tab PO TID PRN 11/30/23 [History] Magnesium Oxide [Magnesium] 1,000 mg PO DAILY 11/30/23 [History] Fenofibrate [Lofibra] 160 mg PO DAILY 30 Days #30 tab 12/03/23 [Rx] Follow up Appointment(s)/Referral(s): Fadi Wolfe DO [STAFF PHYSICIAN] - 12/10/23 9:30 am Aden Diaz MD [Primary Care Provider] - 1-2 days (please call for an appointment ) Patient Instructions/Handouts: Chest Pain (GEN) Activity/Diet/Wound Care/Special Instructions: Activity: As tolerated. Take breaks as needed. Diet: Heart healthy and carb consistent diet. Avoid salts, or foods with hidden salts such as canned or boxed foods and frozen dinners. Extra salt makes your heart work harder and traps the fluid in your body for longer. Special Instructions: Take all of your medications as directed and remember to keep all of your doctor's appointments and follow-up as needed. Thank you for allowing us to participate in your care, it was truly a pleasure having you for our patient!!! Discharge Disposition: HOME SELF-CARE
--- NOTE | 2023-12-03 15:13 | P.PN ---
Subjective Progress Note Date: 12/03/23 Consult reason: chest pain (dyspnea) History of present illness: History of present illness: This is a 43-year-old male patient of Dr. Wolfe with past medical history of DVT on long-term anticoagulation with Eliquis, MTHFR gene mutation, obstructive sleep apnea, hypertension, strong family history of coronary artery disease, normal coronary arteries on heart catheterization, paroxysmal atrial fibrillation status post atrial fibrillation ablation in March [address] Zhang, chronic venous insufficiency. We have been asked to evaluate the patient for chest pain and dyspnea. Patient is seen today in the emergency center waiting for a bed on the observation unit. Patient states he had sudden onset that her heart rate was elevated and also experienced chest pain with this that was achy and tight. He also had a little lightheadedness and dizziness without syncope. He states his heart rate at the time was 145 bpm. Patient also voiced concern that he was in atrial fibrillation. He states he has been taking all of his medications as directed. He had a temperature of 100.1. Patient denies any sick contacts, no fevers. Reviewed telemetry and EKGs with no sign of atrial fibrillation. Patient is also complaining of back pain going down his leg. EKG sinus tach at 121 bpm CTA of the chest: No acute cardiopulmonary disease. Distal subsegmental branch emboli cannot be entirely excluded. Chest x-ray: No acute finding. WBC 12.4, hemoglobin 14.8, platelet count 400. Electrolytes, renal function, liver function test are all within normal limits. TSH 0.321, free T4 normal at 1.16. Troponin negative x 3. Home cardiac medications: Eliquis 5 mg twice daily, atorvastatin 40 mg at bedtime, hydrochlorothiazide 25 mg daily, magnesium oxide 1000 mg daily, Lopressor 25 mg twice daily, spironolactone 50 mg daily, valsartan 320 mg daily, patient is also on ferrous sulfate 325 mg daily. Echocardiogram performed 06/24/2022 revealed technically difficult study for interpretation. Definity was used. Normal left ventricular dimension and systolic function. Atrial fibrillation ablation 03/20/[address] Zhang. 12/02 Patient is seen today in follow-up on the observation unit. He denies having any chest pain or shortness of breath, no lightheadedness or dizziness. No palpitations. He states he has been ambulating without any symptoms. Heart rate has been in the 70s and 80s, blood pressure 135/79, pulse ox 96% on room air. Telemetry sinus rhythm 12/03 Stress testing report was reviewed and was negative. Patient denies having any chest pain. He does complain of headache. Telemetry is a sinus rhythm. Blood pressure 111/60, heart rate in the 70s. Physical examination: Gen: This is a 43-year-old male in no acute distress VS: reviewed HEENT: Head is atraumatic, normocephalic. Pupils equal, round. Sclerae is anicteric. NECK: Supple. No JVD. LUNGS: Clear to auscultation. No wheezes or rhonchi. No intercostal ret ractions. HEART: Regular rate and rhythm. No murmur. ABDOMEN: Soft No tenderness. EXTREMITIES: No pedal edema. No calf tenderness. NEUROLOGICAL: Patient is awake, alert and oriented x3. Assessment: Sinus tachycardia Atypical chest pain most likely secondary to tachycardia History of DVT MTHFR gene mutation Obstructive sleep apnea Hypertension Strong family history of coronary artery disease Paroxysmal atrial fibrillation status post atrial fibrillation ablation in March 2022 Fever per patient. Temperature max documented as 99.8 Plan: Continue patient's home cardiac medications Patient is cleared for discharge and may follow-up with Dr. Wolfe in 2 weeks. Nurse practitioner note has been reviewed, I agree with documented findings and plan of care. Patient was seen and examined. Objective - Vital Signs Vital signs: Vital Signs Temp 97.9 F 12/03/23 07:25 Pulse 79 12/03/23 08:00 Resp 18 12/03/23 08:00 BP 111/68 12/03/23 07:25 Pulse Ox 97 12/03/23 07:25 FiO2 Intake & Output 12/02/23 12/03/23 12/03/23 18:59 06:59 18:59 Intake Total 0 400 Balance 0 400 Intake: Oral 0 400 Other: Voiding Method Toilet Toilet Toilet # Voids 2 2 # Bowel Movements 1 - Labs CBC & Chem 7: 12/01/23 06:34 12/01/23 06:34
== END 2023-12-03 12:17 | disposition home or self-care (01) ==
LOC: EC 13:48 → 6NMEDSUR 16:32
PROVIDERS: ADMIT Internal Medicine; ATTEND Internal Medicine
DX: R07.89 Other chest pain (principal); R00.2 Palpitations; R42 Dizziness and giddiness; R50.9 Fever, unspecified; I48.0 Paroxysmal atrial fibrillation; K21.9 Gastro-esophageal reflux disease without esophagitis; I10 Essential (primary) hypertension; I25.10 Atherosclerotic heart disease of native coronary artery without angina pectoris; F32.A Depression, unspecified; G47.33 Obstructive sleep apnea (adult) (pediatric); E72.12 Methylenetetrahydrofolate reductase deficiency; E78.5 Hyperlipidemia, unspecified; I25.2 Old myocardial infarction; Z20.822 Contact with and (suspected) exposure to COVID-19; Z86.718 Personal history of other venous thrombosis and embolism; Z98.84 Bariatric surgery status; Z79.01 Long term (current) use of anticoagulants; Z79.899 Other long term (current) drug therapy; Z82.49 Family history of ischemic heart disease and other diseases of the circulatory system
CPT/HCPCS: 96376; 96361 ×2; 96374; 99285; 36415; 93005; 93017; 84439; 80061; 80053 ×2; 84443; 83605; 83735 ×2; 84484; 85025; 85027; 87636; 71046; 71275; 78452; G0378 ×4; C8929; A9500; J1170 ×2; J2785; Q9967; 93306

== ENCOUNTER 2024-01-16 15:21 | Emergency (ER) | payer OTHER ==
--- NOTE | 2024-01-16 15:45 | ED ---
General Adult HPI - General Chief complaint: Neuro Symptoms/Deficit Stated complaint: Chest pain - pos stroke Time Seen by Provider: 01/16/24 15:37 Source: patient Mode of arrival: ambulatory Limitations: no limitations - History of Present Illness Initial comments: Patient presents to the ED complaining of having left ear pain for the past week or so. Patient states that he has been diagnosed with a left ear infection, and he is currently being treated with a course of antibiotics. Patient states that for the past 2 days, he has had slurred speech, a left-sided headache, blurry vision out of his left eye and generalized weakness/dizziness. Patient denies any new medication use besides the antibiotic that he was prescribed. Patient admits to taking hydrocodone fairly regularly for pain management. Patient denies taking any other pain medications or sedatives. Patient denies any alcohol use today. Patient denies illicit drug use. Patient denies trauma or injury, sudden onset of headache, neck pain or stiffness, eye pain, focal numbne ss or weakness, sore throat, chest pain or pressure, dyspnea, cough, palpitations, syncope, abdominal pain, nausea/vomiting/diarrhea, bloody or melanotic stool, dysuria or urinary symptoms, leg or calf swelling or pain, or any other symptoms or complaints. Patient is on Eliquis due to having a history of DVTs. - Related Data Home Medications Medication Instructions Recorded Confirmed Omeprazole 40 mg PO DAILY 07/10/23 01/16/24 Apixaban [Eliquis] 5 mg PO BID 10/08/23 01/16/24 Atorvastatin [Lipitor] 40 mg PO HS 11/18/23 01/16/24 Cyclobenzaprine HCl 10 mg PO TID PRN 11/18/23 01/16/24 Ergocalciferol [Vitamin D2 (1250 1,250 mcg PO TU 11/18/23 01/16/24 Mcg = 77050 Iu)] Famotidine [Pepcid] 20 mg PO DAILY 11/18/23 01/16/24 Gabapentin [Neurontin] 400 mg PO TID 11/18/23 01/16/24 Loratadine 10 mg PO BID 11/18/23 01/16/24 Metoprolol Tartrate [Lopressor] 25 mg PO BID 11/18/23 01/16/24 Spironolactone 50 mg PO DAILY 11/18/23 01/16/24 Sucralfate [Carafate] 1 gm PO BID 11/18/23 01/16/24 Valsartan 320 mg PO DAILY 11/18/23 01/16/24 hydroCHLOROthiazide 25 mg PO DAILY 11/18/23 01/16/24 Ferrous Sulfate [Iron (65 MG 325 mg PO DAILY 11/30/23 01/16/24 Elemental)] HYDROcodone/APAP 10-325MG [[place] 1 tab PO QID PRN 11/30/23 01/16/24 10-325] Magnesium Oxide [Magnesium] 1,000 mg PO DAILY 11/30/23 01/16/24 Albuterol Inhaler [Ventolin Hfa 1 - 2 puff INHALATION RT-Q6H PRN 01/16/24 01/16/24 Inhaler] Doxycycline Hyclate 100 mg PO BID 01/16/24 01/16/24 EPINEPHrine (Auto Inject) [Epipen] 0.3 mg IM ONCE PRN 01/16/24 01/16/24 clonazePAM [KlonoPIN] 1 mg PO BID PRN 01/16/24 01/16/24 Allergies Allergy/AdvReac Type Severity Reaction Status Date / Time No Known Allergies Allergy Verified 01/16/24 18:41 Review of Systems ROS Statement: Those systems with pertinent positive or pertinent negative responses have been documented in the HPI. ROS Other: All systems not noted in ROS Statement are negative. Past Medical History Past Medical History: Atrial Fibrillation, Asthma, Blood Disorder, Deep Vein Thrombosis (DVT), GERD/Reflux, Hearing Disorder / Deafness, Hypertension, My ocardial Infarction (RI), Sleep Apnea/CPAP/BIPAP Additional Past Medical History / Comment(s): DVT X 3- LAST TIME 2012- LT LEG, LUMBAR DDD- . HAS HX MTHFR GENE MUTATION-POSITIVE FOR HETEROZYGOUS PER DR. FRANCISCO'S OFFICE, supposed to use CPAP, chronic swelling left lower leg Last Myocardial Infarction Date:: 09/2021 History of Any Multi-Drug Resistant Organisms: None Reported Past Surgical History: Bariatric Surgery, Cardiac Ablation, Heart Catheterization, Joint Replacement Additional Past Surgical History / Comment(s): LEFT KNEE REPLACEMENT, LT INDEX JOINT REPLACEMENT, PAIN CLINIC PROCEDURES, COLONOSCOPY, EGD. Gastric bypass 07-06-23 Past Anesthesia/Blood Transfusion Reactions: Previous Problems w/ Anesthesia, Family History of Problems w/ Anesthesia, Motion Sickness Additional Past Anesthesia/Blood Transfusion Reaction / Comment(s): HARD TO PUT TO SLEEP-(pt and father)-needs more than normal Past Psychological History: Depression Smoking Status: Never smoker Past Alcohol Use History: Occasional Past Drug Use History: None Reported - Past Family History Sister(s) Family Medical History: Cancer Additional Family Medical History / Comment(s): Skin cancer. Mother History Unknown: Yes General Exam Limitations: no limitations General appearance: alert, in no apparent distress Head exam: Present: atraumatic, normocephalic Eye exam: Present: normal appearance, PERRL, EOMI ENT exam: Present: mucous membranes moist, other (Left TM is mildly bulging and with loss of landmarks) Neck exam: Present: other (Trachea is in midline; no nuchal rigidity or meningeal signs are present on exam). Absent: tenderness, meningismus Respiratory exam: Present: normal lung sounds bilaterally. Absent: respiratory distress, wheezes, rales, rhonchi, stridor Cardiovascular Exam: Present: regular rate, normal rhythm, normal heart sounds, other (Normal radial pulses bilaterally) GI/Abdominal exam: Present: soft, other (Obese abdomen). Absent: tenderness, guarding Extremities exam: Absent: tenderness, pedal edema, calf tenderness Neurological exam: Present: alert, oriented X3, CN II-XII intact, other (Possible mild slurred speech; NIH stroke scale score = 1). Absent: motor sensory deficit Skin exam: Present: warm, dry, normal color Course Vital Signs 01/16/24 01/16/24 01/16/24 15:23 16:20 18:38 Temperature 97.6 F Pulse Rate 89 85 88 Respiratory 18 18 18 Rate Blood Pressure 147/89 104/68 106/63 O2 Sat by Pulse 98 94 L 95 Oximetry 01/16/24 18:49 Temperature Pulse Rate 83 Respiratory 18 Rate Blood Pressure 106/63 O2 Sat by Pulse 97 Oximetry - Reevaluation(s) Reevaluation #1: 01/16/24 19:01 Patient's neurological exam is unchanged. Patient is aware of his test results. I discussed hospital admission at this time for further evaluation given the patient's reported symptoms, but patient declines admission at this time, stating that he wishes to go home. Patient is A & O x 4 and completely coherent. He understands the risks of this decision, and he still wishes to be discharged home from the ED at this time. He states that he will return if his symptoms worsen. He was counseled about otitis media and his symptoms, and he was clearly explained return and follow-up instructions. Patient was instructed to return to the ED should he change his mind or should his symptoms worsen. He was also instructed to follow-up closely with his primary care provider and to complete the course of antibiotics that he is currently taking. He feels co mfortable with this plan. EKG Findings - EKG Comments: EKG Findings:: ED physician interpretation (interpreted by me): Normal sinus rh ythm, no ectopy, ventricular rate of 84 bpm, normal AL interval, normal QRS duration, normal QT interval, normal axis, no ST or T wave abnormality Medical Decision Making - Medical Decision Making Was pt. sent in by a medical professional or institution (, [facility], PRODUCTION CLERKS SUPERVISOR, urgent care, hospital, or long term...) When possible be specific @ -No Did you speak to anyone other than the patient for history (EMS, parent, family, police, friend...)? What history was obtained from this source @ -No Did you review nursing and triage notes (agree or disagree)? Why? @ -I reviewed and agree with nursing and triage notes Were old charts reviewed (outside hosp., previous admission, EMS record, old EKG, old radiological studies, urgent care reports/EKG's, long term records)? Report findings @ -No old charts were reviewed Differential Diagnosis (chest pain, altered mental status, abdominal pain women, abdominal pain men, vaginal bleeding, weakness, fever, dyspnea, syncope, headache, dizziness, GI bleed, back pain, seizure, CVA, palpatations, mental health, musculoskeletal)? @ -Differential CVA Ischemic stroke, hemorrhagic stroke, brain tumor, brain mass, otitis media, intracranial abscess, atypical migraine, multiple sclerosis, hypoglycemia, electrolytes disturbance, myasthenia gravis.... This is not meant to be an all- inclusive list EKG interpreted by me (3pts min.). @ -As above X-rays interpreted by me (1pt min.). @ -Chest x-ray was reviewed myself and shows no acute process. I agree with the radiologist's interpretation as above. CT interpreted by me (1pt min.). @ -Noncontrast head CT was reviewed myself and shows no acute intracranial abnormality. I agree with the radiologist's interpretation as above. U/S interpreted by me (1pt. min.). @ -None done What testing was considered but not performed or refused? (CT, X-rays, U/S, labs)? Why? @ -None What meds were considered but not given or refused? Why? @ -None Did you discuss the management of the patient with other professionals (professionals i.e. , PA, PRODUCTION CLERKS SUPERVISOR, lab, RT, psych nurse, social sciences department chair, table and desk finisher, teacher, chief school finance officer, case advocate)? Give summary @ -No Was smoking cessation discussed for >3mins.? @ -No Was critical care preformed (if so, how long)? @ -No Were there social determinants of health that impacted care today? How? (Homelessness, low income, unemployed, alcoholism, drug addiction, transportation, low edu. Level, literacy, decrease access to med. care, [facility], rehab)? @ -No Was there de-escalation of care discussed even if they declined (Discuss DNR or withdrawal of care, Hospice)? DNR status @ -No What co-morbidities impacted this encounter? (DM, HTN, Smoking, COPD, CAD, Cancer, CVA, ARF, Chemo, Hep., AIDS, mental health diagnosis, sleep apnea, morbid obesity)? @ -None Was patient admitted / discharged? Hospital course, mention meds given and route, prescriptions, significant lab abnormalities, going to OR and other pertinent info. @ -Patient's neurological exam is unchanged. Patient's labs and imaging studies are fairly unremarkable. Patient is aware of his test results. I discussed hospital admission at this time for further evaluation given the patient's reported symptoms, but patient declines admission at this time, stating that he wishes to go home. Patient is A & O x 4 and completely coherent. He understands the risks of this decision, and he still wishes to be discharged home from the ED at this time. He states that he will return if his symptoms worsen. He was counseled about otitis media and his symptoms, and he was clearly explained return and follow-up instructions. Patient was instructed to return to the ED should he change his mind or should his symptoms worsen. He was also instructed to follow-up closely with his primary care provider and to complete the course of antibiotics that he is currently taking. He feels comfortable with this plan. Undiagnosed new problem with uncertain prognosis? @ -No Drug Therapy requiring intensive monitoring for toxicity (Heparin, Nitro, Insulin, Cardizem)? @ -No Were any procedures done? @ -No Diagnosis/symptom? @ -Left otitis media Acute, or Chronic, or Acute on Chronic? @ -Default Uncomplicated (without systemic symptoms) or Complicated (systemic symptoms)? @ -Default Side effects of treatment? @ -No Exacerbation, Progression, or Severe Exacerbation? @ -No Poses a threat to life or bodily function? How? (Chest pain, [place], RI, pneumonia, PE, COPD, DKA, ARF, appy, cholecystitis, CVA, Diverticulitis, Homicidal, Suicidal, threat to staff... and all critical care pts) @ -No Diagnosis/symptom? @ -Slurred speech, blurry vision, generalized weakness Acute, or Chronic, or Acute on Chronic? @ -Acute Uncomplicated (without systemic symptoms) or Complicated (systemic symptoms)? @ -Default Side effects of treatment? @ -None Exacerbation, Progression, or Severe Exacerbation] @ -No Poses a threat to life or bodily function? @ -No - Lab Data Result diagrams: 01/16/24 16:00 01/16/24 16:00 Lab Results 01/16/24 01/16/24 01/16/24 Range/Units 15:47 16:00 16:00 WBC 8.8 (3.8-10.6) k/uL RBC 4.64 (4.30-5.90) m/uL Hgb 12.8 L (13.0-17.5) gm/dL Hct 39.6 (39.0-53.0) % MCV 85.4 (80.0-100.0) fL MCH 27.7 (25.0-35.0) pg MCHC 32.4 (31.0-37.0) g/dL RDW 14.3 (11.5-15.5) % Plt Count 309 (150-450) k/uL MPV 6.6 Neutrophils % 69 % Lymphocytes % 22 % Monocytes % 5 % Eosinophils % 3 % Basophils % 0 % Neutrophils # 6.0 (1.3-7.7) k/uL Lymphocytes # 1.9 (1.0-4.8) k/uL Monocytes # 0.4 (0-1.0) k/uL Eosinophils # 0.3 (0-0.7) k/uL Basophils # 0.0 (0-0.2) k/uL Hypochromasia Slight PT 10.3 (10.0-12.5) sec INR 0.9 (<1.2) APTT 27.2 (22.0-30.0) sec Sodium (137-145) mmol/L Potassium (3.5-5.1) mmol/L Chloride (98-107) mmol/L Carbon Dioxide (22-30) mmol/L Anion Gap mmol/L BUN (9-20) mg/dL Creatinine (0.66-1.25) mg/dL Est GFR (CKD-EPI)AfAm (>60 ml/min/1.73 sqM) Est GFR (CKD-EPI)NonAf (>60 ml/min/1.73 sqM) Glucose (74-99) mg/dL POC Glucose (mg/dL) 98 (70-110) mg/dL POC Glu Doughnut Fryer ID Jono Camilo Calcium (8.4-10.2) mg/dL Total Bilirubin (0.2-1.3) mg/dL AST (17-59) U/L ALT (4-49) U/L Alkaline Phosphatase (38-126) U/L Creatine Kinase (55-170) U/L Troponin I (0.000-0.034) ng/mL Total Protein (6.3-8.2) g/dL Albumin (3.5-5.0) g/dL Urine Opiates Screen (NotDetected) Ur Oxycodone Screen (NotDetected) Urine Methadone Screen (NotDetected) Ur Barbiturates Screen (NotDetected) U Tricyclic Antidepress (NotDetected) Ur Phencyclidine Scrn (NotDetected) Ur Amphetamines Screen (NotDetected) U Methamphetamines Scrn (NotDetected) U Benzodiazepines Scrn (NotDetected) Urine Cocaine Screen (NotDetected) U Marijuana (THC) Screen (NotDetected) Serum Alcohol mg/dL 01/16/24 01/16/24 01/16/24 Range/Units 16:00 16:00 16:00 WBC (3.8-10.6) k/uL RBC (4.30-5.90) m/uL Hgb (13.0-17.5) gm/dL Hct (39.0-53.0) % MCV (80.0-100.0) fL MCH (25.0-35.0) pg MCHC (31.0-37.0) g/dL RDW (11.5-15.5) % Plt Count (150-450) k/uL MPV Neutrophils % % Lymphocytes % % Monocytes % % Eosinophils % % Basophils % % Neutrophils # (1.3-7.7) k/uL Lymphocytes # (1.0-4.8) k/uL Monocytes # (0-1.0) k/uL Eosinophils # (0-0.7) k/uL Basophils # (0-0.2) k/uL Hypochromasia PT (10.0-12.5) sec INR (<1.2) APTT (22.0-30.0) sec Sodium 135 L (137-145) mmol/L Potassium 4.2 (3.5-5.1) mmol/L Chloride 100 (98-107) mmol/L Carbon Dioxide 32 H (22-30) mmol/L Anion Gap 3 mmol/L BUN 15 (9-20) mg/dL Creatinine 0.98 (0.66-1.25) mg/dL Est GFR (CKD-EPI)AfAm >90 (>60 ml/min/1.73 sqM) Est GFR (CKD-EPI)NonAf >90 (>60 ml/min/1.73 sqM) Glucose 100 H (74-99) mg/dL POC Glucose (mg/dL) (70-110) mg/dL POC Glu Doughnut Fryer ID Calcium 9.1 (8.4-10.2) mg/dL Total Bilirubin 0.3 (0.2-1.3) mg/dL AST 18 (17-59) U/L ALT 15 (4-49) U/L Alkaline Phosphatase 88 (38-126) U/L Creatine Kinase 43 L (55-170) U/L Troponin I <0.012 (0.000-0.034) ng/mL Total Protein 5.9 L (6.3-8.2) g/dL Albumin 3.7 (3.5-5.0) g/dL Urine Opiates Screen Detected H (NotDetected) Ur Oxycodone Screen Detected H (NotDetected) Urine Methadone Screen Not Detected (NotDetected) Ur Barbiturates Screen Not Detected (NotDetected) U Tricyclic Antidepress Detected H (NotDetected) Ur Phencyclidine Scrn Not Detected (NotDetected) Ur Amphetamines Screen Not Detected (NotDetected) U Methamphetamines Scrn Not Detected (NotDetected) U Benzodiazepines Scrn Not Detected (NotDetected) Urine Cocaine Screen Not Detected (NotDetected) U Marijuana (THC) Screen Not Detected (NotDetected) Serum Alcohol <10 mg/dL - Radiology Data Chest x-ray: Borderline heart size. No acute process seen. Noncontrast head CT: No acute intracranial abnormality seen. The middle ear cavities and mastoid air cells are clear. Disposition Clinical Impression: Left otitis media, Slurred speech, Blurry vision, Generalized weakness Disposition: HOME SELF-CARE Condition: Stable Instructions (If sedation given, give patient instructions): Ear Infection (ED), Weakness (ED), Dizziness (ED) Additional Instructions: Return to the ER should you change your mind or develop new or worsening symptoms. Follow-up closely with your primary care provider. Is patient prescribed a controlled substance at d/c from ED?: No Referrals: Aden Diaz MD [Primary Care Provider] - 1-2 days Time of Disposition: 19:04
[2024-01-16 15:49] LABS: Glucose,Whole Blood 98 mg/dL (70-110)
[2024-01-16 16:08] LABS: Basophils % (A) 0 %; Eosinophils # (A) 0.3 k/uL (0-0.7); Eosinophils % (A) 3 %; HCT 39.6 % (39.0-53.0); HGB 12.8 gm/dL (13.0-17.5); Hypochromasia Slight; Lymphocytes # (A) 1.9 k/uL (1.0-4.8); Lymphocytes % (A) 22 %; MCH 27.7 pg (25.0-35.0); MCHC 32.4 g/dL (31.0-37.0); MCV 85.4 fL (80.0-100.0); Mean Platelet Volume 6.6; Monocytes # (A) 0.4 k/uL (0-1.0); Monocytes % (A) 5 %; Neutrophils % (A) 69 %; Platelet Count 309 k/uL (150-450); RBC 4.64 m/uL (4.30-5.90); RDW 14.3 % (11.5-15.5); WBC 8.8 k/uL (3.8-10.6)
[2024-01-16 16:20] LABS: ALT 15 U/L (4-49); AST 18 U/L (17-59); African American GFR (CKD) >90 (>60 ml/min/1.73 sqM); Albumin 3.7 g/dL (3.5-5.0); Alcohol <10 mg/dL; Alkaline Phosphatase 88 U/L (38-126); Anion Gap 3 mmol/L; Blood Urea Nitrogen 15 mg/dL (9-20); Calcium 9.1 mg/dL (8.4-10.2); Carbon Dioxide 32 mmol/L (22-30); Chloride 100 mmol/L (98-107); Creatine Kinase 43 U/L (55-170); Glucose 100 mg/dL (74-99); INR 0.9 (<1.2); Non-African American GFR(CKD) >90 (>60 ml/min/1.73 sqM); Partial Thromboplastin Time 27.2 sec (22.0-30.0); Potassium 4.2 mmol/L (3.5-5.1); Prothrombin Time 10.3 sec (10.0-12.5); Sodium 135 mmol/L (137-145); Total Bilirubin 0.3 mg/dL (0.2-1.3); Total Protein 5.9 g/dL (6.3-8.2)
--- NOTE | 2024-01-16 16:22 | CT ---
EXAMINATION TYPE: CT brain wo con DATE OF EXAM: 01/16/2024 COMPARISON: 02/21/2019 HISTORY: 43-year-old male Slurred speech, Dizziness. Left ear infection. Hx of stroke. TECHNIQUE: Examination was done in axial plane without intravenous contrast. Coronal and sagittal r econstructions performed. CT DLP: 1195.5 mGycm Automated exposure control for dose reduction was used. FINDINGS: There is no evidence of acute intracranial hemorrhage, acute ischemic changes, mass, mass-effect, or extra-axial fluid collection. There is no effacement of cerebral sulci or basal subarachnoid cister ns. There is no hydrocephalus. There is no midline shift. Blanco-white matter distinction is preserv ed. The middle ear cavities and mastoid air cells are clear. Trace mucosal thickening ethmoid air cells. Orbits and globes are intact. IMPRESSION: No acute intracranial abnormality seen. The middle ear cavities and mastoid air cells are clear.
[2024-01-16 16:24] VITALS: RESP 18; TEMP 97.6
[2024-01-16] MEDS: MORPHINE SULFATE 2 MG/ML SYRINGE IVP STA (16:26)
--- NOTE | 2024-01-16 17:30 | XR ---
EXAMINATION TYPE: XR chest 2V DATE OF EXAM: 01/16/2024 COMPARISON: 11/30/2023 HISTORY: 43-year-old male confusion, altered mental status TECHNIQUE: PA and lateral views FINDINGS: Heart borderline in size. Aorta and pulmonary vasculature within normal limits. No consolidation or p leural effusion. IMPRESSION: Borderline heart size. No acute process seen.
[2024-01-16 17:41] LABS: Amphetamine Screen,Urine Not Detected (NotDetected); Barbiturate Screen,Urine Not Detected (NotDetected); Benzodiazepines Screen,Urine Not Detected (NotDetected); Cocaine Screen,Urine Not Detected (NotDetected); Methadone Screen, Urine Not Detected (NotDetected); Opiate Screen,Urine Detected (NotDetected); Oxycodone Screen, Urine Detected (NotDetected); Phencyclidine Screen,Urine Not Detected (NotDetected); Tricyclic Antidepressant,Urine Detected (NotDetected); Urn Cannabinoid Scrn Not Detected (NotDetected)
[2024-01-16 18:57] VITALS: BP 106/63; PULSE 83
== END 2024-01-16 19:22 | disposition home or self-care (01) ==
LOC: EC 15:21
DX: H66.92 Otitis media, unspecified, left ear (principal); H53.8 Other visual disturbances; R53.1 Weakness; I10 Essential (primary) hypertension; I25.2 Old myocardial infarction; I48.91 Unspecified atrial fibrillation; G47.30 Sleep apnea, unspecified; J45.909 Unspecified asthma, uncomplicated; K21.9 Gastro-esophageal reflux disease without esophagitis; F32.A Depression, unspecified; Z79.01 Long term (current) use of anticoagulants; Z79.899 Other long term (current) drug therapy; Z86.73 Personal history of transient ischemic attack (TIA), and cerebral infarction without residual deficits
CPT/HCPCS: 36415; 93005; 80053; 82550; 84484; 85025; 85610; 85730; 80306; 71046; 70450; 99285; 96374; G0480; J2270; 80320

== ENCOUNTER 2024-02-08 18:07 | Observation (INO) | payer OTHER ==
--- NOTE | 2024-02-08 18:19 | ED ---
Neuro HPI - General Chief Complaint: Neuro Symptoms/Deficit Stated Complaint: Neuro Symptons Time Seen by Provider: 02/08/24 18:18 Source: patient, RN notes reviewed, old records reviewed Mode of arrival: ambulatory Limitations: no limitations - History of Present Illness Is the patient presenting with stroke symptoms?: Yes -: hour(s) Initial Comments: This is a 43 male to the ED co slurred speech back pain chest pain headache difficulty with speech difficulty moving lips and tongue. Patient has history of TIA CVA. History of atrial fibrillation on Eliquis. Patient awoke with the symptoms today Location: speech, left face History of same: No Place: home Severity: moderate Improves With: none Worsens With: none On Anticoagulants: Yes Context: gradual onset Associated Symptoms: weakness Treatments Prior to Arrival: none - Related Data Home Medications: Home Medications Medication Instructions Recorded Confirmed Omeprazole 40 mg PO DAILY 07/10/23 02/08/24 Apixaban [Eliquis] 5 mg PO BID 10/08/23 02/08/24 Atorvastatin [Lipitor] 40 mg PO HS 11/18/23 02/08/24 Cyclobenzaprine HCl 10 mg PO TID PRN 11/18/23 02/08/24 Ergocalciferol [Vitamin D2 (1250 1,250 mcg PO TU 11/18/23 02/08/24 Mcg = 10129 Iu)] Famotidine [Pepcid] 20 mg PO DAILY 11/18/23 02/08/24 Gabapentin [Neurontin] 400 mg PO TID 11/18/23 02/08/24 Loratadine 10 mg PO BID 11/18/23 02/08/24 Metoprolol Tartrate [Lopressor] 25 mg PO BID 11/18/23 02/08/24 Spironolactone 50 mg PO DAILY 11/18/23 02/08/24 Sucralfate [Carafate] 1 gm PO BID 11/18/23 02/08/24 Valsartan 320 mg PO DAILY 11/18/23 02/08/24 hydroCHLOROthiazide 25 mg PO DAILY 11/18/23 02/08/24 Ferrous Sulfate [Iron (65 MG 325 mg PO DAILY 11/30/23 02/08/24 Elemental)] HYDROcodone/APAP 10-325MG [[place] 1 tab PO QID PRN 11/30/23 02/08/24 10-325] Magnesium Oxide [Magnesium] 1,000 mg PO DAILY 11/30/23 02/08/24 Albuterol Inhaler [Ventolin Hfa 1 - 2 puff INHALATION RT-Q6H PRN 01/16/24 02/08/24 Inhaler] Doxycycline Hyclate 100 mg PO DIRECTED 01/16/24 02/08/24 EPINEPHrine (Auto Inject) [Epipen] 0.3 mg IM ONCE PRN 01/16/24 02/08/24 clonazePAM [KlonoPIN] 1 mg PO BID PRN 01/16/24 02/08/24 methylPREDNISolone Dose Pack See Taper PO DIRECTED 02/08/24 02/08/24 [Medrol Dose Pack] Allergies/Adverse Reactions: Allergies Allergy/AdvReac Type Severity Reaction Status Date / Time No Known Allergies Allergy Verified 02/08/24 18:58 Review of Systems ROS Statement: Those systems with pertinent positive or pertinent negative responses have been documented in the HPI. ROS Other: All systems not noted in ROS Statement are negative. General Exam - General Exam Comments Initial Comments: NIH 3 - slurred speech Limitations: no limitations General appearance: alert, in no apparent distress Head exam: Present: atraumatic, normocephalic, normal inspection Eye exam: Present: normal appearance, PERRL, EOMI. Absent: scleral icterus, conjunctival injection, periorbital swelling ENT exam: Present: normal exam, mucous membranes moist Neck exam: Present: normal inspection. Absent: tenderness, meningismus, lymphadenopathy Respiratory exam: Present: normal lung sounds bilaterally. Absent: respiratory distress, wheezes, rales, rhonchi, stridor Cardiovascular Exam: Present: regular rate, normal rhythm, normal heart sounds. Absent: systolic murmur, diastolic murmur, rubs, gallop, clicks GI/Abdominal exam: Present: soft, normal bowel sounds. Absent: distended, tenderness, guarding, rebound, rigid Extremities exam: Present: normal inspection, full ROM, normal capillary refill. Absent: tenderness, pedal edema, joint swelling, calf tenderness Back exam: Present: normal inspection Neurological exam: Present: alert, oriented X3, CN II-XII intact Psychiatric exam: Present: normal affect, normal mood Skin exam: Present: warm, dry, intact, normal color. Absent: rash Stroke MDM - Lab Data Result diagrams: 02/08/24 18:23 02/08/24 18:23 Lab Results 02/08/24 02/08/24 02/08/24 Range/Units 18:23 18:23 18:23 WBC 12.2 H (3.8-10.6) k/uL RBC 5.12 (4.30-5.90) m/uL Hgb 13.7 (13.0-17.5) gm/dL Hct 44.2 (39.0-53.0) % MCV 86.4 (80.0-100.0) fL MCH 26.7 (25.0-35.0) pg MCHC 30.9 L (31.0-37.0) g/dL RDW 14.6 (11.5-15.5) % Plt Count 366 (150-450) k/uL MPV 6.6 Neutrophils % 70 % Lymphocytes % 20 % Monocytes % 7 % Eosinophils % 1 % Basophils % 1 % Neutrophils # 8.5 H (1.3-7.7) k/uL Lymphocytes # 2.5 (1.0-4.8) k/uL Monocytes # 0.9 (0-1.0) k/uL Eosinophils # 0.1 (0-0.7) k/uL Basophils # 0.1 (0-0.2) k/uL Hypochromasia Slight PT 10.2 (10.0-12.5) sec INR 0.9 (<1.2) APTT 24.8 (22.0-30.0) sec Sodium 140 (137-145) mmol/L Potassium 3.8 (3.5-5.1) mmol/L Chloride 101 (98-107) mmol/L Carbon Dioxide 28 (22-30) mmol/L Anion Gap 11 mmol/L BUN 18 (9-20) mg/dL Creatinine 1.08 (0.66-1.25) mg/dL Est GFR (CKD-EPI)AfAm >90 (>60 ml/min/1.73 sqM) Est GFR (CKD-EPI)NonAf 83 (>60 ml/min/1.73 sqM) Glucose 90 (74-99) mg/dL POC Glucose (mg/dL) (70-110) mg/dL POC Glu Skiving Machine Operator ID Plasma Lactic Acid Jordan (0.7-2.0) mmol/L Calcium 9.4 (8.4-10.2) mg/dL Phosphorus 3.4 (2.5-4.5) mg/dL Magnesium 2.0 (1.6-2.3) mg/dL Total Bilirubin 0.3 (0.2-1.3) mg/dL AST 22 (17-59) U/L ALT 22 (4-49) U/L Alkaline Phosphatase 95 (38-126) U/L Troponin I (0.000-0.034) ng/mL Total Protein 6.8 (6.3-8.2) g/dL Albumin 4.1 (3.5-5.0) g/dL TSH 0.703 (0.465-4.680) mIU/L 02/08/24 02/08/24 02/08/24 Range/Units 18:23 18:23 18:23 WBC (3.8-10.6) k/uL RBC (4.30-5.90) m/uL Hgb (13.0-17.5) gm/dL Hct (39.0-53.0) % MCV (80.0-100.0) fL MCH (25.0-35.0) pg MCHC (31.0-37.0) g/dL RDW (11.5-15.5) % Plt Count (150-450) k/uL MPV Neutrophils % % Lymphocytes % % Monocytes % % Eosinophils % % Basophils % % Neutrophils # (1.3-7.7) k/uL Lymphocytes # (1.0-4.8) k/uL Monocytes # (0-1.0) k/uL Eosinophils # (0-0.7) k/uL Basophils # (0-0.2) k/uL Hypochromasia PT (10.0-12.5) sec INR (<1.2) APTT (22.0-30.0) sec Sodium (137-145) mmol/L Potassium (3.5-5.1) mmol/L Chloride (98-107) mmol/L Carbon Dioxide (22-30) mmol/L Anion Gap mmol/L BUN (9-20) mg/dL Creatinine (0.66-1.25) mg/dL Est GFR (CKD-EPI)AfAm (>60 ml/min/1.73 sqM) Est GFR (CKD-EPI)NonAf (>60 ml/min/1.73 sqM) Glucose (74-99) mg/dL POC Glucose (mg/dL) 104 (70-110) mg/dL POC Glu Skiving Machine Operator Jono Mirza Plasma Lactic Acid Jordan 1.9 (0.7-2.0) mmol/L Calcium (8.4-10.2) mg/dL Phosphorus (2.5-4.5) mg/dL Magnesium (1.6-2.3) mg/dL Total Bilirubin (0.2-1.3) mg/dL AST (17-59) U/L ALT (4-49) U/L Alkaline Phosphatase (38-126) U/L Troponin I <0.012 (0.000-0.034) ng/mL Total Protein (6.3-8.2) g/dL Albumin (3.5-5.0) g/dL TSH (0.465-4.680) mIU/L - NIH Stroke Scale 1a. Level of Consciousness: (0) alert 1b. LOC Questions: (0) answers correctly 1c. LOC Commands: (0) performs tasks correctly 2. Best Gaze: (0) normal 3. Visual: (0) no visual loss 4. Facial Palsy: (0) normal symmetrical movement 5a. Motor Arm Left: (0) no drift 5b. Motor Arm Right: (0) no drift 6a. Motor Leg Left: (0) no drift 6b. Motor Leg Right: (0) no drift 7. Limb Ataxia: (0) absent 8. Sensory: (1) mild/moderate sensory loss 9. Best Language: (1) mild/moderate aphasia 10. Dysarthria: (1) mild/moderate dysarthria 11. Extinction/Inattention: (0) no abnormality - Thrombolytic Inclusion/Exclusion Thrombolytic Exclusion Criteria: Symptom Onset > 4.5 Hours - Medical Decision Making 43 male to ER with severe symptoms. Patient also having other complaints of headache and chest pain. Patient does have history of atrial fibrillation on Eliquis so not a tPA candidate as well as patient awoke with symptoms today. Patient will be admitted for further evaluation, neurology. - Radiology Data Radiology results: report reviewed (CT brain and CTA head and neck negative for acute disease), image reviewed - EKG Data -: EKG Interpreted by Me (EG is sinus 96 [place] 123 QRS 110 QTc 406) Past Medical History Past Medical History: Atrial Fibrillation, Asthma, Blood Disorder, Deep Vein Thrombosis (DVT), GERD/Reflux, Hearing Disorder / Deafness, Hypertension, Myocardial Infarction (ME), Sleep Apnea/CPAP/BIPAP Additional Past Medical History / Comment(s): DVT X 3- LAST TIME 2012- LT LEG, LUMBAR DDD- . HAS HX MTHFR GENE MUTATION-POSITIVE FOR HETEROZYGOUS PER DR. FRANCISCO'S OFFICE, supposed to use CPAP, chronic swelling left lower leg Last Myocardial Infarction Date:: 09/2021 History of Any Multi-Drug Resistant Organisms: None Reported Past Surgical History: Bariatric Surgery, Cardiac Ablation, Heart Catheterization, Joint Replacement Additional Past Surgical History / Comment(s): LEFT KNEE REPLACEMENT, LT INDEX JOINT REPLACEMENT, PAIN CLINIC PROCEDURES, COLONOSCOPY, EGD. Gastric bypass 07-06-23 Past Anesthesia/Blood Transfusion Reactions: Previous Problems w/ Anesthesia, Family History of Problems w/ Anesthesia, Motion Sickness Additional Past Anesthesia/Blood Transfusion Reaction / Comment(s): HARD TO PUT TO SLEEP-(pt and father)-needs more than normal Past Psychological History: Depression Smoking Status: Never smoker Past Alcohol Use History: Occasional Past Drug Use History: None Reported - Past Family History Sister(s) Family Medical History: Cancer Additional Family Medical History / Comment(s): Skin cancer. Mother History Unknown: Yes Course Vital Signs 02/08/24 02/08/24 02/08/24 18:11 18:23 18:38 Temperature 97.9 F Pulse Rate 96 94 91 Respiratory 16 18 18 Rate Blood Pressure 132/79 134/88 134/72 O2 Sat by Pulse 97 98 96 Oximetry 02/08/24 02/08/24 02/08/24 18:53 19:08 19:23 Temperature Pulse Rate 92 89 87 Respiratory 18 18 18 Rate Blood Pressure 130/69 115/76 118/65 O2 Sat by Pulse 97 96 96 Oximetry - Reevaluation(s) Reevaluation #1: 02/08/24 22:15 Medical records reviewed 02/08/24 22:16 Code stroke paged on patient evaluation on arrival in the ER Patient was not a tPA candidate secondary to wake up with symptoms Reevaluation #2: 02/08/24 22:16 Patient has no change in symptoms here in the ER Reevaluation #3: 02/08/24 22:16 Patient informed of results and questions answered Reevaluation #4: Was pt. sent in by a medical professional or institution ([facility], [employer], urgent care, hospital, or halfway...) When possible be specific @ -no Did you speak to anyone other than the patient for history (EMS, parent, family, police, friend...)? What history was obtained from this source @ -no Did you review nursing and triage notes (agree or disagree)? Why? @ -agree Are old charts reviewed (outside hosp., previous admission, EMS record, old EKG, old radiological studies, urgent care reports/EKG's, halfway records)? Report findings @ -yes Differential Diagnosis (chest pain, altered mental status, abdominal pain women, abdominal pain men, vaginal bleeding, weakness, fever, dyspnea, syncope, headache, dizziness, GI bleed, back pain, seizure, CVA, palpatations, mental health, musculoskeletal)? @ -prior EKG interpreted by me (3pts min.). @ -yes X-rays interpreted by me (1pt min.). @ -yes negative for acute disease CT interpreted by me (1pt min.). @ -no U/S interpreted by me (1pt. min.). @ -no What testing was considered but not performed or refused? (CT, X-rays, U/S, labs)? Why? @ -none What meds were considered but not given or refused? Why? @ -none Did you discuss the management of the patient with other professionals (p rofessionals i.e. [facility], [employer], lab, RT, psych nurse, criminal justice social worker, tombstone polisher, teacher, revenue officer, nurse case management)? Give summary @ -no Was smoking cessation discussed for >3mins.? @ -no Was critical care preformed (if so, how long)? @ -no Were there social determinants of health that impacted care today? How? (Homelessness, low income, unemployed, alcoholism, drug addiction, transportation, low edu. Level, literacy, decrease access to med. care, detention, rehab)? @ -none Was there de-escalation of care discussed even if they declined (Discuss DNR or withdrawal of care, Hospice)? DNR status @ -no What co-morbidities impacted this encounter? (DM, HTN, Smoking, COPD, CAD, Cancer, CVA, ARF, Chemo, Hep., AIDS, mental health diagnosis, sleep apnea, morbid obesity)? @ -none Was patient admitted / discharged? Hospital course, mention meds given and route, prescriptions, significant lab abnormalities, going to OR and other pertinent info. @ - Undiagnosed new problem with uncertain prognosis? @ -no Drug Therapy requiring intensive monitoring for toxicity (Heparin, Nitro, Insulin, Cardizem)? @ -no Were any procedures done? @ -no Diagnosis/symptom? @ - Acute, or Chronic, or Acute on Chronic? @ -Acute Uncomplicated (without systemic symptoms) or Complicated (systemic symptoms)? @ -Complicated Side effects of treatment? @ -no Exacerbation, Progression, or Severe Exacerbation? @ -exacerbation Poses a threat to life or bodily function? How? (Chest pain, USA, ME, pneumonia, PE, COPD, DKA, ARF, appy, cholecystitis, CVA, Diverticulitis, Homicidal, Suicidal, threat to staff... and all critical care pts) @ -yes Reevaluation #5: 02/08/24 22:16 Differential CVA Ischemic stroke, hemorrhagic stroke, brain tumor, atypical migraine, Wernicke's encephalopathy, seizure, multiple sclerosis, meningitis, encephalitis, hypoglycemia, Guillain-Camacho, electrolytes disturbance, myasthenia gravis.... This is not meant to be an all-inclusive list - Consultations Consultation #1: Spoke with sound who agrees to admit this patient Critical Care Time Critical Care Time: Yes Total Critical Care Time: 31 Disposition Clinical Impression: Slurred speech, Generalized weakness, Uncontrolled hypertension, Atrial fibrillation, Chest pain Disposition: ADMITTED IP TO THIS HOSP Condition: Fair Is patient prescribed a controlled substance at d/c from ED?: No Referrals: Aden Diaz MD [Primary Care Provider] - 1-2 days Time of Disposition: 22:00
[2024-02-08 18:25] LABS: Glucose,Whole Blood 104 mg/dL (70-110)
[2024-02-08] MEDS: SODIUM CHLORIDE 0.9% 1,000 ML IV STA (18:30)
[2024-02-08 18:39] LABS: Basophils # (A) 0.1 k/uL (0-0.2); Basophils % (A) 1 %; Eosinophils # (A) 0.1 k/uL (0-0.7); Eosinophils % (A) 1 %; HCT 44.2 % (39.0-53.0); HGB 13.7 gm/dL (13.0-17.5); Hypochromasia Slight; Lymphocytes # (A) 2.5 k/uL (1.0-4.8); Lymphocytes % (A) 20 %; MCH 26.7 pg (25.0-35.0); MCHC 30.9 g/dL (31.0-37.0); MCV 86.4 fL (80.0-100.0); Mean Platelet Volume 6.6; Monocytes # (A) 0.9 k/uL (0-1.0); Monocytes % (A) 7 %; Neutrophils # (A) 8.5 k/uL (1.3-7.7); Neutrophils % (A) 70 %; Platelet Count 366 k/uL (150-450); RBC 5.12 m/uL (4.30-5.90); RDW 14.6 % (11.5-15.5); WBC 12.2 k/uL (3.8-10.6)
[2024-02-08 18:49] LABS: ALT 22 U/L (4-49); AST 22 U/L (17-59); African American GFR (CKD) >90 (>60 ml/min/1.73 sqM); Albumin 4.1 g/dL (3.5-5.0); Alkaline Phosphatase 95 U/L (38-126); Anion Gap 11 mmol/L; Blood Urea Nitrogen 18 mg/dL (9-20); Calcium 9.4 mg/dL (8.4-10.2); Carbon Dioxide 28 mmol/L (22-30); Chloride 101 mmol/L (98-107); Glucose 90 mg/dL (74-99); INR 0.9 (<1.2); Non-African American GFR(CKD) 83 (>60 ml/min/1.73 sqM); Partial Thromboplastin Time 24.8 sec (22.0-30.0); Phosphorus 3.4 mg/dL (2.5-4.5); Potassium 3.8 mmol/L (3.5-5.1); Prothrombin Time 10.2 sec (10.0-12.5); Sodium 140 mmol/L (137-145); Total Bilirubin 0.3 mg/dL (0.2-1.3); Total Protein 6.8 g/dL (6.3-8.2)
--- NOTE | 2024-02-08 19:13 | CT ---
EXAMINATION TYPE: CT brain wo con CT DLP: 1197.4 mGycm, Automated exposure control for dose reduction was used. DATE OF EXAM: 02/08/2024 6:51 PM COMPARISON: 01/16/2024. CLINICAL INDICATION:Male, 43 years old with history of weakness, Left side weakness, Left eye vision changes, slurred speech. TECHNIQUE: Brain: Axial CT images of the brain were obtained with coronal and sagittal reformats created and rev iewed. Contrast used: None. Oral contrast used: None. FINDINGS: Brain: Extra-axial spaces: No abnormal extra-axial fluid collections. Ventricular system: Within normal limits Cerebral parenchyma: No acute intraparenchymal hemorrhage or mass effect. The martin-white junction is well differentiated. Cerebellum: Unremarkable. Mass effect: No evidence of midline shift. Intracranial vasculature: unremarkable Soft tissues: Normal. Calvarium/osseous structures: No depressed skull fracture. Paranasal sinuses and mastoid air cells: Mild scattered paranasal sinus disease. Visualized orbits: Orbital contents are intact. IMPRESSION: No acute intracranial process.
--- NOTE | 2024-02-08 20:29 | CT ---
EXAMINATION TYPE: CT angio head neck CT DLP: 1317.4 mGycm, Automated exposure control for dose reduction was used. DATE OF EXAM: 02/08/2024 7:49 PM COMPARISON: 02/08/2024. CLINICAL INDICATION:Male, 43 years old with history of cp, left side weakness, left side vision collins es TECHNIQUE: Axially acquired helical CT angiogram of the head and neck was obtained with contrast. Axi al images are supplemented with 3D reconstructions and MIP images which were post-processed at an in dependent workstation. NASCET criteria used. Contrast used:65ml mL of Isovue 370 with IV Contrast, Oral contrast used: None. FINDINGS: Limited evaluation secondary to bolus timing. CTA HEAD: No evidence of acute intracranial hemorrhage, mass effect, or midline shift. The ventricles, sulci, a nd cisterns are unremarkable. Poorly visualized intracranial vasculature due to bolus timing. No obvious aneurysmal dilation within the larger vessels of the intracranial vasculature. CTA NECK: Limited evaluation secondary to bolus timing. Right Carotid System: The common carotid artery and external carotid artery are patent. The carotid bifurcation demonstrate s no evidence of hemodynamically significant stenosis. The remaining portions of the internal carotid artery demonstrate normal size without significant narrowing. Left Carotid System: The common carotid artery and external carotid artery are patent. The carotid bifurcation demonstrate s no evidence of hemodynamically significant stenosis. The remaining portions of the internal carotid artery demonstrate normal size without significant narrowing. Vertebral arteries are poorly visualized due to bolus timing. There is a 2-vessel aortic arch. The origins of the great vessels are patent. No evidence of hemodyna mically significant stenosis. IMPRESSION: Limited evaluation secondary to bolus timing. 1. No evidence for significant stenosis in the neck or poorly visualized intracranial vasculature. C onsider repeat examination. 2. Poor visualization of the vertebral arteries within the neck. 3. The larger vessels within the intracranial vasculature appear patent. No evidence for aneurysmal dilation.
--- NOTE | 2024-02-08 20:36 | CT ---
EXAMINATION TYPE: CT angio chest CT DLP: 1430 mGycm, Automated exposure control for dose reduction was used. DATE OF EXAM: 02/08/2024 7:49 PM COMPARISON: 01/16/2024, 11/30/2023. CLINICAL INDICATION:Male, 43 years old with history of cp; chest pain TECHNIQUE/CONTRAST: CTA scan of the thorax is performed with IV Contrast, patient injected with 100 mL of Isovue 370, MIP images are created and reviewed these are created on a separate workstation.. FINDINGS: Pulmonary Artery: There is no evidence for a filling defect within the pulmonary vasculature to sugge st acute pulmonary embolism. The pulmonary artery is of normal size. Lungs/Pleura: Subtle asymmetric reticular opacities throughout the upper and lower lungs on the right which are new from prior. No evidence of focal consolidation, pleural effusion or pneumothorax. Airway: Large airways are patent. Heart: Is prominent in size. Vasculature: No evidence of aortic aneurysm. Mediastinum: No gross evidence of adenopathy. Musculoskeletal: No acute osseous abnormalities Soft Tissues: Unremarkable. Lower neck: No significant findings. Upper Abdomen: Postsurgical changes to the gastric lumen. IMPRESSION: 1. No evidence of pulmonary embolism. 2. Subtle asymmetric right-sided reticular opacities throughout the lungs correlate for atypical pneu monia. Attention on follow-up imaging CT chest. Findings are new from 11/30/2023.
[2024-02-08] MEDS: ASPIRIN 325 MG TAB PO STA (22:45)
[2024-02-08] MEDS: HYDROmorphone 1 MG/ML 1 ML SYRINGE IVP STA (22:45)
[2024-02-09] MEDS ORDERED: ALBUTEROL NEBULIZED 2.5 MG/3 ML INHALATION PRN (02:40)
[2024-02-09] MEDS ORDERED: ACETAMINOPHEN TAB 325 MG TAB PO PRN (02:41)
--- NOTE | 2024-02-09 02:49 | P.HPIM ---
History of Present Illness H&P Date: 02/08/24 Chief Complaint: Slurred speech 43-year-old male with A-fib on Eliquis, hypertension history of DVT Patient coming in reporting symptoms of feeling disoriented since he woke up along with numbness in his upper extremities with headache. He also was found to have some slurred speech as he started talking with his dad who recommended that he goes to the hospital for evaluation due to concerns of stroke patient reports history of TIA he denies any recent fall or head injury denies any changes in his medication. Patient also reports symptoms of shortness of breath with sore throat productive cough and occasional nausea vomiting he describes vomiting phlegm due to feeling congested he denies any fevers or chills denies any abdominal pain denies any GI bleeding denies any diarrhea Patient denies tobacco smoking illicit drugs or heavy alcohol Upon arrival to the ED code stroke was activated patient was evaluated CT imaging of the brain showed no acute intracranial pathology review of systems Pertinent positives as noted in HPI. All other systems were reviewed and are negative on exam Constitutional: No acute distress, conversant, pleasant Eyes: Anicteric sclerae, moist conjunctiva, Pupils equal round reactive to light ENMT: NC/AT Oropharynx clear, no erythema, or exudates Neck: Supple, no masses, or JVD No carotid bruits No thyromegaly Lungs: Clear to auscultation Clear to percussion Normal respiratory effort, no accessory muscle use Cardiovascular: Heart regular in rate and rhythm, No murmurs, gallops, or rubs No peripheral edema Abdominal: Soft Nontender, no guarding, rebound or rigidity Abdomen moving with respiration Normoactive bowel sounds No hepatomegaly, No splenomegaly No palpable mass No abdominal wall hernia noted Skin: Normal temperature, tone, texture, turgor No induration No subcutaneous nodules No rash, lesions No ulcers Extremities: No digital cyanosis No clubbing Pedal pulses intact and symmetrical Radial pulses intact and symmetrical No calf tenderness Psychiatric: Alert and oriented to person, place and time Appropriate affect fair judgement Neuro Muscles Strength 5/5 in all 4 extremities Sensation to light touch grossly present throughout Cranial nerves II-XII grossly intact Past Medical History Past Medical History: Atrial Fibrillation, Asthma, Blood Disorder, Deep Vein Thrombosis (DVT), GERD/Reflux, Hearing Disorder / Deafness, Hypertension, Myocardial Infarction (HI), Sleep Apnea/CPAP/BIPAP Additional Past Medical History / Comment(s): DVT X 3- LAST TIME 2012- LT LEG, LUMBAR DDD- . HAS HX MTHFR GENE MUTATION-POSITIVE FOR HETEROZYGOUS PER DR. FRANCISCO'S OFFICE, supposed to use CPAP, chronic swelling left lower leg Last Myocardial Infarction Date:: 09/2021 History of Any Multi-Drug Resistant Organisms: None Reported Past Surgical History: Bariatric Surgery, Cardiac Ablation, Heart Catheterization, Joint Replacement Additional Past Surgical History / Comment(s): LEFT KNEE REPLACEMENT, LT INDEX JOINT REPLACEMENT, PAIN CLINIC PROCEDURES, COLONOSCOPY, EGD. Gastric bypass 07-06-23 Past Anesthesia/Blood Transfusion Reactions: Previous Problems w/ Anesthesia, Family History of Problems w/ Anesthesia, Motion Sickness Additional Past Anesthesia/Blood Transfusion Reaction / Comment(s): HARD TO PUT TO SLEEP-(pt and father)-needs more than normal Past Psychological History: Depression Smoking Status: Never smoker Past Alcohol Use History: Occasional Past Drug Use History: None Reported - Past Family History Sister(s) Family Medical History: Cancer Additional Family Medical History / Comment(s): Skin cancer. Mother History Unknown: Yes Medications and Allergies Home Medications Medication Instructions Recorded Confirmed Type Omeprazole 40 mg PO DAILY 07/10/23 02/08/24 History Apixaban [Eliquis] 5 mg PO BID 10/08/23 02/08/24 History Atorvastatin [Lipitor] 40 mg PO HS 11/18/23 02/08/24 History Cyclobenzaprine HCl 10 mg PO TID PRN 11/18/23 02/08/24 History Ergocalciferol [Vitamin D2 (1250 1,250 mcg PO TU 11/18/23 02/08/24 History Mcg = 99499 Iu)] Famotidine [Pepcid] 20 mg PO DAILY 11/18/23 02/08/24 History Gabapentin [Neurontin] 400 mg PO TID 11/18/23 02/08/24 History Loratadine 10 mg PO BID 11/18/23 02/08/24 History Metoprolol Tartrate [Lopressor] 25 mg PO BID 11/18/23 02/08/24 History Spironolactone 50 mg PO DAILY 11/18/23 02/08/24 History Sucralfate [Carafate] 1 gm PO BID 11/18/23 02/08/24 History Valsartan 320 mg PO DAILY 11/18/23 02/08/24 History hydroCHLOROthiazide 25 mg PO DAILY 11/18/23 02/08/24 History Ferrous Sulfate [Iron (65 MG 325 mg PO DAILY 11/30/23 02/08/24 History Elemental)] HYDROcodone/APAP 10-325MG [[place] 1 tab PO QID PRN 11/30/23 02/08/24 History 10-325] Magnesium Oxide [Magnesium] 1,000 mg PO DAILY 11/30/23 02/08/24 History Albuterol Inhaler [Ventolin Hfa 1 - 2 puff INHALATION RT-Q6H PRN 01/16/24 02/08/24 History Inhaler] Doxycycline Hyclate 100 mg PO DIRECTED 01/16/24 02/08/24 History EPINEPHrine (Auto Inject) [Epipen] 0.3 mg IM ONCE PRN 01/16/24 02/08/24 History clonazePAM [KlonoPIN] 1 mg PO BID PRN 01/16/24 02/08/24 History methylPREDNISolone Dose Pack See Taper PO DIRECTED 02/08/24 02/08/24 History [Medrol Dose Pack] Allergies Allergy/AdvReac Type Severity Reaction Status Date / Time No Known Allergies Allergy Verified 02/08/24 18:58 Physical Exam Vitals: Vital Signs Temp Pulse Resp BP Pulse Ox 02/08/24 22:15 80 18 120/70 97 02/08/24 22:00 80 18 113/70 96 02/08/24 21:30 76 18 109/68 97 02/08/24 21:00 80 18 108/62 97 02/08/24 20:38 81 18 109/66 96 02/08/24 20:23 80 18 106/72 97 02/08/24 20:08 85 18 101/72 96 02/08/24 19:53 88 18 103/58 97 02/08/24 19:38 89 18 108/60 96 02/08/24 19:23 87 18 118/65 96 02/08/24 19:08 89 18 115/76 96 02/08/24 18:53 92 18 130/69 97 02/08/24 18:38 91 18 134/72 96 02/08/24 18:23 94 18 134/88 98 02/08/24 18:11 97.9 F 96 16 132/79 97 Intake and Output 02/08/24 02/08/24 02/09/24 14:59 22:59 06:59 Other: Weight 154.221 kg Results CBC & Chem 7: 02/08/24 18:23 02/08/24 18:23 Labs: Abnormal Lab Results - Last 24 Hours (Table) 02/08/24 Range/Units 18:23 WBC 12.2 H (3.8-10.6) k/uL MCHC 30.9 L (31.0-37.0) g/dL Neutrophils # 8.5 H (1.3-7.7) k/uL Assessment and Plan Assessment: 43-year-old male coming in due to waking up feeling disoriented having slurred speech and some bilateral upper extremity numbness patient also reports symptoms suggestive of upper respiratory infection symptoms I discussed case with ED doctor and accepted the admission for TIA and pneumonia with anticipated length of stay less than 2 midnights Community-acquired pneumonia Check acute respiratory viral panel COVID, influenza, RSV Check blood cultures now Check urine Legionella antigen Empirically start patient on Rocephin 2 g IV piggyback daily and azithromycin 500 mg p.o. daily Continue with inhalers as needed Tylenol for fever and headache CTA of the chest showed hazy opacities suggestive of atypical pneumonia White count 12.2 elevated Hemoglobin 13.7 unremarkable TIA Patient presented with symptoms of disorientation and numbness of the upper extremities which has resolved CT of the brain and CT angio of the head and neck showed no acute intracranial pathology no high-grade blockages Fall precautions PT OT eval Neurology consult Check echocardiogram Chronic conditions A-fib on Eliquis Continue with metoprolol and Eliquis Cardiac monitoring History of recurrent venous thromboembolism Continue with Eliquis Blood work showing Renal function unremarkable sodium 140 potassium 3.8 BUN 18 creatinine 1 Troponin unremarkable 0.012 Full code DVT prophylaxis on Eliquis for A-fib and history of DVT GERD continue with famotidine 20 mg p.o. daily
[2024-02-09] MEDS: AZITHROMYCIN 500 MG TAB PO SCH (03:21)
[2024-02-09] MEDS: HYDROmorphone 1 MG/ML 1 ML SYRINGE IVP PRN (04:25)
[2024-02-09] MEDS: ASPIRIN 325 MG TAB PO SCH (09:31)
[2024-02-09] MEDS: APIXABAN 5 MG TAB PO SCH (09:31)
[2024-02-09] MEDS: SPIRONOLACTONE 25 MG TAB PO SCH (09:32)
[2024-02-09] MEDS: FAMOTIDINE 20 MG TAB PO SCH (09:32)
[2024-02-09] MEDS: GABAPENTIN 400 MG CAP PO SCH (09:32)
[2024-02-09] MEDS: METOPROLOL TARTRATE 25 MG TAB PO SCH (09:32)
[2024-02-09] MEDS: hydroCHLOROthiazide 25 MG TAB PO SCH (09:32)
[2024-02-09] MEDS: VALSARTAN 160 MG TAB PO SCH (10:08)
--- NOTE | 2024-02-09 13:57 | P.PN ---
Subjective Progress Note Date: 02/09/24 Hospital course: Patient is a very pleasant 43-year-old male with a past medical history of CAD, atrial fibrillation status postcardiac ablation on anticoagulation with Eliquis, hypertension, hyperlipidemia, GERD, MTHFR gene mutation, chronic swelling left lower extremity, and recent gastric bypass 07/06/2023. He presented to the emergency department on 02/08/2024 with a chief complaint of slurred speech, left upper extremity numbness/weakness, and feeling disorientated accompanied by reports of upper respiratory infection symptoms. Patient underwent evaluation in the emergency department. Vital signs upon arrival show blood pressure 132/79, heart rate 96, respiratory rate 16, temp 97.9 F, and SpO2 of 97% on room air. EKG completed showing normal sinus rhythm at 96 bpm with no significant T wave or ST abnormalities showing no signs of acute ischemia upon personal review and interpretation. Brain CT completed negative for acute intracranial process. CTA head and neck negative for acute process showing no evidence for significant stenosis in the neck, poor visualization of the vertebral arteries within the neck and patent appearing larger vessels within the intracranial vasculature with no evidence for aneurysmal dilation. CTA chest negative for pulmonary emboli showing subtle asymmetric right-sided reticular opacities throughout the lungs correlating for atypical pneumonia. Labs completed and reviewed. CBC showing leukocytosis with WBC count of 12.2. Coagulation profile normal findings. CMP unremarkable. Lactic acid 1.9. Magnesium 2.0. Troponin less than 0.012. TSH 0.703. Influenza A, influenza B, RSV, and COVID PCR negative. Physical exam: Vital signs reviewed and stable. General: Nontoxic, no distress and appears stated age. Derm: Skin warm and dry, normal coloration for ethnicity. Head: Atraumatic, normocephalic and symmetric. Eyes: EOMs intact, no lid lag, and anicteric sclera Mouth: no lip lesions, mucus membranes moist Cardiovascular: regular rate and rhythm with normal S1S2, no murmur, positive posterior tibial pulses bilaterally, and cap refill < 2 seconds. Lungs: Respirations even, regular, and unlabored on room air. Lungs CTA bilaterally, no rhonchi, no rales, no wheezing, and no accessory muscle usage. Abdominal: soft, nontender to palpation, no guarding, no appreciable organomegaly Ext: ROM intact. No gross muscle atrophy, no edema, no contractures Neuro: Speech clear, face symmetrical and CN II-XII grossly intact with no noted focal neuro deficits Psych: Alert and oriented to person, place, time, and situation. Appropriate and pleasant affect. Assessment and Plan of Care: TIA, reports of slurred speech and left upper extremity weakness/numbness -Neurology following. -MRI brain without contrast -Echocardiogram -TSH 0.703. -Continue NIH stroke scale with neuro checks every 4 hours and as needed -Daily aspirin and atorvastatin. -PT/OT consult -Swallow evaluation. -Telemetry monitoring. Community-acquired pneumonia -Influenza A, influenza B, RSV, and COVID PCR negative. -Oxygenation to be administered and titrated as needed to maintain SPO2 equal to or greater than 92% -Telemetry monitoring. -Continuous Pulse-oximetry -Duonebs as needed for SOB and/or wheezing -Incentive Spirometry -Antibiotics: Rocephin 2 g IVPB and a Zithromax 500 mg daily. -Follow-up on Legionell antigen and blood culture results.a Chronic conditions... Paroxysmal A-fib on Eliquis CAD Hypertension Hyperlipidemia MTHFR gene mutation Chronic left lower extremity edema Continue daily medication regimen with Eliquis 5 mg twice daily, aspirin 81 mg daily, atorvastatin 80 mg nightly, Aldactone 50 mg daily, valsartan 320 mg daily, Neurontin 400 mg 3 times daily, hydrochlorothiazide 25 mg daily, and metoprolol 25 mg twice daily. Telemetry monitoring. History of recurrent venous thromboembolism Continue with Eliquis 5 mg twice daily GERD History of gastric bypass Continue GI prophylaxis with Protonix 40 mg daily and Carafate 1 g with meals twice daily. Data and imaging reviewed: Vital signs reviewed. Blood pressure 124/79, heart rate 91, respiratory rate 18, temp 97.7 F, and SpO2 of 99% on room air. Influenza A, influenza B, RSV, and COVID PCR negative. CODE STATUS: Full code DVT prophylaxis: Eliquis Anticipated discharge date: Clinical course to determine, likely 24 to [address]: Home Patient was seen independently by Nurse Pracitioner. This document was prepared using [employer] dictation software. 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 Objective - Vital Signs Vital signs: Vital Signs Temp 97.7 F 02/09/24 07:51 Pulse 91 02/09/24 07:51 Resp 18 04/02/24 07:51 BP 124/79 02/09/24 07:51 Pulse Ox 99 02/09/24 07:51 FiO2 Intake & Output 02/08/24 02/09/24 02/09/24 18:59 06:59 18:59 Weight 154.221 kg - Labs CBC & Chem 7: 02/08/24 18:23 02/08/24 18:23 Labs: Abnormal Lab Results - Last 24 Hours (Table) 02/08/24 Range/Units 18:23 WBC 12.2 H (3.8-10.6) k/uL MCHC 30.9 L (31.0-37.0) g/dL Neutrophils # 8.5 H (1.3-7.7) k/uL
--- NOTE | 2024-02-09 14:17 | US ---
EXAMINATION TYPE: US carotid duplex BILAT DATE OF EXAM: 02/09/2024 COMPARISON: NONE CLINICAL INDICATION: Male, 43 years old with history of Recurrent ? TIA; Dizziness, visual changes le ft eye, slurred speech, TIA TECHNIQUE: Carotid duplex ultrasound examination. Indirect Doppler criteria was utilized. FINDINGS: EXAM MEASUREMENTS: RIGHT: Peak Systolic Velocity (PSV) cm/sec ----- Right CCA: 101.6 ----- Right ICA: 90.5 ----- Right ECA: 87.9 ICA/CCA ratio: 0.9 RIGHT: End Diastole cm/sec ----- Right CCA: 19.4 ----- Right ICA: 33.5 ----- Right ECA: 11.5 LEFT: Peak Systolic Velocity (PSV) cm/sec ----- Left CCA: 87.1 ----- Left ICA: 98.2 ----- Left ECA: 141.7 ICA/CCA ratio: 1.1 LEFT: End Diastole cm/sec ----- Left CCA: 21.0 ----- Left ICA: 25.8 ----- Left ECA: 19.5 VERTEBRALS (direction of flow): Right Vertebral: Antegrade Left Vertebral: Antegrade Rhythm: Normal WALL CLEANER NOTES: Minimal plaque bilateral bifurcations. No evidence of significant stenosis IMPRESSION: No evidence for hemodynamically significant stenosis. Criteria for Assigning % of Stenosis / Diameter reduction (Estimation based on the indirect measurements of the internal carotid artery velocities (ICA PSV). 1. Normal (no stenosis)=ICA PSV < 125 cm/s: ratio < 2.0: ICA EDV<40 cm/s. 2. Less than 50% stenosis=ICA PSV < 125 cm/s: ratio < 2.0: ICA EDV<40 cm/s. 3. 50 to 69% stenosis=ICA PSV of 125 to 230 cm/s: ration 2.0 ? 4.0: ICA EDV 40-100 cm/s. 4. Greater than 70% stenosis to near occlusion= ICA PSV > 230 cm/s: ratio > 4.0: ICA EDV > 100 cm/s. 5. Near occlusion= ICA PSV velocities may be low or undetectable: variable ratio and ICA EDV. 6. Total occlusion=unable to detect flow.
--- NOTE | 2024-02-09 15:04 | P.CNNES ---
History of Present Illness Consult date: 02/09/24 Requesting physician: Clint Richardson Reason for Consult: CVA History of Present Illness: Patient is a 43-year-old right-handed male with history of hypertension, hyperlipidemia, atrial fibrillation, came to the hospital yesterday at 6:03 PM, with recurrent episodes of dizziness, lightheadedness, nausea and slurred speech. Patient states that in the last 2 and half months, he had about 10 or 12 episodes consisting of feeling dizziness, lightheadedness, nausea, and feels leaning to the left side. His left eye gets fuzzy and sometimes difficult to see and also gets slurred speech sometimes. These episodes last for about 6 hours. He states similar episode happened last night when he became dizzy at work. His dad could not understand what he was saying and had some slurred speech. He also had blurred vision in the left eye but was not as bad this time. Patient states that by the time he went to sleep at night, he still had some symptoms, but this morning when he woke up, all symptoms are gone. He denied any focal numbness or tingling or weakness or facial droop. Patient states that when this episode happens, his head tilts to the left side but no jerking. He states that usually his fully oriented but sometimes he gets slightly disoriented, confused with these spells. Vital signs on arrival blood pressure 132/79, pulse rate 96, temperature 97.9. Blood test shows WBC 12.2 hemoglobin 13.7, normal platelets, PT PTT, normal CMP troponin. TSH is normal. Influenza, RSV and coronavirus PCR negative. CT head revealed no acute intracranial process. I personally reviewed CT head, agree w ith the findings. CTA of the chest negative for pulmonary embolism. Subtle asymmetric right-sided reticular opacities throughout the lungs, correlate for atypical pneumonia. Findings are new from 11/30/2023. EKG shows sinus rhythm. Patient has history of hypertension, hyperlipidemia but no diabetes. Denies any history of seizures. Patient states that he had history of mild stroke about 25 years ago with no residual deficits. He has never smoked, drinks alcohol socially. Patient has history of atrial fibrillation diagnosed 1 year ago, and also has history of DVT, currently on Eliquis as well as aspirin 81 mg daily. He states he is compliant with the medication. Review of Systems Constitutional: Denies chills, Denies fever Eyes: left blurred vision, denies diplopia, denies pain, denies loss of vision Ears: bilateral: decreased hearing, tinnitus, deny: earache Ears, nose, mouth and throat: Reports headache (Gets frequent headaches), Rep orts vertigo, Denies sore throat Cardiovascular: Reports chest pain, Reports shortness of breath Respiratory: Reports cough, Reports excessive sputum, Denies hemoptysis, Denies home oxygen Gastrointestinal: Reports nausea, Reports vomiting, Denies abdominal pain, Denies diarrhea Genitourinary: Denies incontinence, Denies urinary frequency Musculoskeletal: Reports low back pain, Denies neck pain Integumentary: Denies pruritus, Denies rash Neurological: Reports as per HPI Psychiatric: Reports anxiety, Denies depression Endocrine: Denies fatigue, Denies weight change Hematologic/Lymphatic: Denies easy bleeding, Denies easy bruising Past Medical History Past Medical History: Atrial Fibrillation, Asthma, Blood Disorder, Deep Vein Thrombosis (DVT), GERD/Reflux, Hearing Disorder / Deafness, Hypertension, M yocardial Infarction (NC), Sleep Apnea/CPAP/BIPAP Additional Past Medical History / Comment(s): DVT X 3- LAST TIME 2012- LT LEG, LUMBAR DDD- . HAS HX MTHFR GENE MUTATION-POSITIVE FOR HETEROZYGOUS PER DR. FRANCISCO'S OFFICE, supposed to use CPAP, chronic swelling left lower leg Last Myocardial Infarction Date:: 09/2021 History of Any Multi-Drug Resistant Organisms: None Reported Past Surgical History: Bariatric Surgery, Cardiac Ablation, Heart Catheterization, Joint Replacement Additional Past Surgical History / Comment(s): LEFT KNEE REPLACEMENT, LT INDEX JOINT REPLACEMENT, PAIN CLINIC PROCEDURES, COLONOSCOPY, EGD. Gastric bypass 07-06-23 Past Anesthesia/Blood Transfusion Reactions: Previous Problems w/ Anesthesia, Family History of Problems w/ Anesthesia, Motion Sickness Additional Past Anesthesia/Blood Transfusion Reaction / Comment(s): HARD TO PUT TO SLEEP-(pt and father)-needs more than normal Past Psychological History: Depression Smoking Status: Never smoker Past Alcohol Use History: Occasional Past Drug Use History: None Reported - Past Family History Sister(s) Family Medical History: Cancer Additional Family Medical History / Comment(s): Skin cancer. Mother History Unknown: Yes Medications and Allergies Home Medications Medication Instructions Recorded Confirmed Type Omeprazole 40 mg PO DAILY 07/10/23 02/08/24 History Apixaban [Eliquis] 5 mg PO BID 10/08/23 02/08/24 History Atorvastatin [Lipitor] 40 mg PO HS 11/18/23 02/08/24 History Cyclobenzaprine HCl 10 mg PO TID PRN 11/18/23 02/08/24 History Ergocalciferol [Vitamin D2 (1250 1,250 mcg PO TU 11/18/23 02/08/24 History Mcg = 35332 Iu)] Famotidine [Pepcid] 20 mg PO DAILY 11/18/23 02/08/24 History Gabapentin [Neurontin] 400 mg PO TID 11/18/23 02/08/24 History Loratadine 10 mg PO BID 11/18/23 02/08/24 History Metoprolol Tartrate [Lopressor] 25 mg PO BID 11/18/23 02/08/24 History Spironolactone 50 mg PO DAILY 11/18/23 02/08/24 History Sucralfate [Carafate] 1 gm PO BID 11/18/23 02/08/24 History Valsartan 320 mg PO DAILY 11/18/23 02/08/24 History hydroCHLOROthiazide 25 mg PO DAILY 11/18/23 02/08/24 History Ferrous Sulfate [Iron (65 MG 325 mg PO DAILY 11/30/23 02/08/24 History Elemental)] HYDROcodone/APAP 10-325MG [[place] 1 tab PO QID PRN 11/30/23 02/08/24 History 10-325] Magnesium Oxide [Magnesium] 1,000 mg PO DAILY 11/30/23 02/08/24 History Albuterol Inhaler [Ventolin Hfa 1 - 2 puff INHALATION RT-Q6H PRN 01/16/24 02/08/24 History Inhaler] Doxycycline Hyclate 100 mg PO DIRECTED 01/16/24 02/08/24 History EPINEPHrine (Auto Inject) [Epipen] 0.3 mg IM ONCE PRN 01/16/24 02/08/24 History clonazePAM [KlonoPIN] 1 mg PO BID PRN 01/16/24 02/08/24 History methylPREDNISolone Dose Pack See Taper PO DIRECTED 02/08/24 02/08/24 History [Medrol Dose Pack] Allergies Allergy/AdvReac Type Severity Reaction Status Date / Time No Known Allergies Allergy Verified 02/08/24 18:58 Physical Examination - Vital Signs Vital Signs: Vital Signs Temp Pulse Resp BP Pulse Ox 02/09/24 10:08 98 20 124/68 96 02/09/24 07:51 97.7 F 91 18 124/79 99 02/09/24 06:00 84 19 110/82 100 02/09/24 03:00 84 18 111/80 94 L 02/09/24 01:31 81 19 118/70 96 02/08/24 23:46 74 20 108/72 97 02/08/24 22:15 80 18 120/70 97 02/08/24 22:00 80 18 113/70 96 02/08/24 21:30 76 18 109/68 97 02/08/24 21:00 80 18 108/62 97 02/08/24 20:38 81 18 109/66 96 02/08/24 20:23 80 18 106/72 97 02/08/24 20:08 85 18 101/72 96 02/08/24 19:53 88 18 103/58 97 02/08/24 19:38 89 18 108/60 96 02/08/24 19:23 87 18 118/65 96 02/08/24 19:08 89 18 115/76 96 02/08/24 18:53 92 18 130/69 97 02/08/24 18:38 91 18 134/72 96 02/08/24 18:23 94 18 134/88 98 02/08/24 18:11 97.9 F 96 16 132/79 97 Intake and Output 02/08/24 02/09/24 02/09/24 22:59 06:59 14:59 Other: Weight 154.221 kg Patient is a middle aged male, in no acute distress. Patient is alert awake oriented to time place and person. Speech and language functions are normal. Patient can name and repeat very well. No aphasia or dysarthria. Attention, concentration and fund of knowledge is adequate. On cranial nerve examination, pupils are equal, round and reacting to light, visual [place] are full on confrontation, with no neglect on double simultaneous stimulation. Extraocular muscles are intact with no nystagmus. Face is symmetric, tongue protrudes to the midline. Palatal elevation and sensation normal, hearing and shoulder shrug normal, facial sensation normal. On muscle strength testing, there is no pronator drift and the strength is normal in arms and legs distally and proximally. Deep tendon reflexes are symmetric 1+ at the biceps, 1+ brachioradialis, 2 at the knees 1 ankles and plantars downgoing bilaterally. Sensory to touch is equal with no neglect on double simultaneous stimulation. Cerebellar function showed no ataxia for [id number] testing. No dysdiadochokinesia. No ataxia for [id number] testing on either side. Tone and bulk of muscles normal. Gait deferred.. On general examination, there is no carotid bruit or murmur, S1-S2 audible. Chest is clear on consultation. Abdomen is soft nontender. No organomegaly, bowel sounds present. Peripheral pulses are present. No peripheral edema. Results - Laboratory Findings CBC and BMP: 02/08/24 18:23 02/08/24 18:23 Abnormal Lab Findings: Abnormal Labs 02/08/24 18:23 WBC 12.2 H MCHC 30.9 L Neutrophils # 8.5 H Assessment and Plan Assessment: * Recurrent episodes (x10-12 in the last 2-1/2 months) of focal neurological symptoms consisting of dizziness, lightheadedness, left eye blurred vision, slurred speech and leaning to the left side. Each episode last for about 6 to 8 hours. Exact cause uncertain. Rule out TIA, seizures less likely. Patient is already on optimal dose of anticoagulation with Eliquis and aspirin 81 mg. * Hypertension * Hyperlipidemia * Atrial fibrillation * History of DVT * Obesity Plan: MRI of the brain without contrast, evaluate for acute CVA 2-D echo with bubble study to rule out PFO CTA head and neck showed: Limited evaluation secondary to bolus timing. No evidence for significant stenosis in the neck or poorly visualized intracranial vasculature. Poor visualization of the vertebral arteries within the neck. The larger vessels within the intracranial vasculature appears patent. No evidence for aneurysmal dilation. Carotid Doppler, performed revealed no significant stenosis in either ICA, with antegrade flow in both vertebral arteries. Patient has recurrent TIAs, rule out focal seizures. Will check EEG rule out any epileptiform activity. Fasting a.m. lipid panel Hemoglobin A1c Optimize control of blood pressure Continue Eliquis 5 mg twice daily and aspirin 81 mg daily. Neuro checks every shift. Telemetry monitoring rule out any arrhythmia PT, OT, speech therapy DVT prophylaxis: On Eliquis. Neurology will continue to follow. Thank you for the consult.
--- NOTE | 2024-02-09 15:45 | MR ---
EXAMINATION TYPE: MR brain wo con DATE OF EXAM: 02/09/2024 COMPARISON: 10/02/2010 HISTORY: Recurrent TIA. CONTRAST: Performed utilizing 0 mL intravenous Gadavist gadolinium contrast. TECHNIQUE: Multiplanar, multiecho imaging on a 3.0 Colette magnet is performed through the brain. Stud y is performed within 24 hours of arrival to the hospital. The craniovertebral junction is normal. The pituitary is normal. Diffusion-weighted imaging is performed. No abnormal hyperintensity is present to suggest an acute i ntracranial infarct or acute ischemic change. No abnormal signal is present within the brain. Ventricles and sulci are appropriate for the patient age. IMPRESSION: 1. No acute intracranial process.
[2024-02-09] MEDS: SUCRALFATE 1 GM TAB PO SCH (16:57)
[2024-02-09] MEDS ORDERED: ATORVASTATIN 40 MG TAB PO SCH (21:00)
[2024-02-09] MEDS: ATORVASTATIN 80 MG TAB PO SCH (21:25)
[2024-02-10] MEDS: clonazePAM 1 MG TAB PO STA (02:53)
[2024-02-10] MEDS: PANTOPRAZOLE 40 MG TABLET PO SCH (06:06)
[2024-02-10] MEDS: ASPIRIN 81 MG PO SCH (09:15)
[2024-02-10] MEDS: FERROUS SULFATE 325 MG TAB PO SCH (09:15)
--- NOTE | 2024-02-10 09:38 | EEG ---
DATE OF SERVICE 02/09/2024 ELECTROENCEPHALOGRAM REPORT PREAMBLE: This is a 43-year-old male with recurrent TIAs. Rule out focal seizures. EEG FINDINGS: This is a 21-channel digital EEG recorded with video component, utilizing 10/20 international system with referential and bipolar montages. Background consists of well developed, well regulated, moderate voltage activity in about 9 to 10 Hertz alpha. Background is posterior dominant and reactive to eye opening and closing. Photic driving response was not seen. The patient was drowsy during most of the study with presence of some theta frequency rhythm. Stage 2 sleep was seen with the presence of vertex waves, sleep spindles. Hyperventilation was not done. No focal or generalized epileptiform activity was seen. EKG channel showed no obvious arrhythmia. IMPRESSION: This is a normal EEG during wakefulness, drowsiness, and stage 2 sleep. No focal, lateralized or epileptiform activity was seen. MMODL / IJN: [id number] / [facility]
[2024-02-10 10:36] VITALS: RESP 16
[2024-02-10 11:57] VITALS: BP 98/67; PULSE 87; TEMP 98.1
--- NOTE | 2024-02-10 13:39 | P.DS ---
Providers Date of admission: 02/08/24 22:15 Expected date of discharge: 02/10/24 Attending physician: Raghu Jasmine MD Consults: 02/08/24 22:14 Consult Physician Routine Consulting Provider: Josh Persaud Consult Reason/Comments: cva Do you want consulting provider notified?: Yes Primary care physician: Aden Diaz MD Hospital Course: Discharge Diagnosis: Recurrent episodes of focal neurologic symptoms including reports of slurred speech and left upper extremity weakness/numbness, possible recurrent TIAs. CVA ruled out. Neurological workup negative. Community-acquired pneumonia, patient received 3-day course of IV antibiotics with azithromycin and Rocephin. Patient to complete remaining 7-day course of doxycycline as previously prescribed. Paroxysmal A-fib on Eliquis. Continue daily medication regimen with Eliquis 5 mg twice daily and metoprolol 25 mg twice daily. CAD. Continue daily medication regimen with Eliquis 5 mg twice daily, aspirin 81 mg daily, atorvastatin 40 mg nightly, Aldactone 50 mg daily, valsartan 320 mg daily, hydrochlorothiazide 25 mg daily, and metoprolol 25 mg twice daily. Hypertension. Continue daily medication regimen with Aldactone 50 mg daily, valsartan 320 mg daily, hydrochlorothiazide 25 mg daily, and metoprolol 25 mg twice daily. Hyperlipidemia. Continue daily medication regimen with atorvastatin 40 mg nightly. MTHFR gene mutation. Chronic left lower extremity edema. Continue hydrochlorothiazide 25 mg daily and Aldactone 50 mg daily. History of recurrent venous thromboembolism. Continue with Eliquis 5 mg twice daily GERD. Continue GI prophylaxis with Protonix 40 mg daily and Carafate 1 g with meals twice daily. History of gastric bypass. Continue to follow heart healthy and carb consistent diet. Hospital Course: Patient is a very pleasant 43-year-old male with a past medical history of CAD, atrial fibrillation status postcardiac ablation on anticoagulation with Eliquis, hypertension, hyperlipidemia, GERD, MTHFR gene mutation, chronic swelling left lower extremity, and recent gastric bypass 07/06/2023. He presented to the emergency department on 02/08/2024 with a chief complaint of slurred speech, left upper extremity numbness/weakness, and feeling disorientated accompanied by reports of upper respiratory infection symptoms. Patient underwent evaluation in the emergency department. Vital signs upon arrival show blood pressure 132/79, heart rate 96, respiratory rate 16, temp 97.9 F, and SpO2 of 97% on room air. EKG completed showing normal sinus rhythm at 96 bpm with no significant T wave or ST abnormalities showing no signs of acute ischemia upon personal review and interpretation. Brain CT completed negative for acute intracranial process. CTA head and neck negative for acute process showing no evidence for significant stenosis in the neck, poor visualization of the vertebral arteries within the neck and patent appearing larger vessels within the intracranial vasculature with no evidence for aneurysmal dilation. CTA chest negative for pulmonary emboli showing subtle asymmetric right-sided reticular opacities throughout the lungs correlating for atypical pneumonia. Labs completed and reviewed. CBC showing leukocytosis with WBC count of 12.2. Coagulation profile normal findings. CMP unremarkable. Lactic acid 1.9. Magnesium 2.0. Troponin less than 0.012. TSH 0.703. Influenza A, influenza B, RSV, and COVID PCR negative. Patient was placed on IV antibiotics with Rocephin and azithromycin for treatment of community-acquired pneumonia. He was evaluated by neurologist. Carotid Dopplers were completed showing no evidence for hemodynamically significant stenosis. MRI brain completed negative for acute intercranial process. EEG also completed showing normal EEG with no focal, lateralized, or epileptiform activity reported. Patient cleared from neurology perspective and is medically stable for discharge home at this time. Physical exam: Vital signs reviewed and stable. General: Nontoxic, no distress and appears stated age. Derm: Skin warm and dry, normal coloration for ethnicity. Head: Atraumatic, normocephalic and symmetric. Eyes: EOMs intact, no lid lag, and anicteric sclera Mouth: no lip lesions, mucus membranes moist Cardiovascular: regular rate and rhythm with normal S1S2, no murmur, positive posterior tibial pulses bilaterally, and cap refill < 2 seconds. Lungs: Respirations even, regular, and unlabored on room air. Lungs CTA bilaterally, no rhonchi, no rales, no wheezing, and no accessory muscle usage. Abdominal: soft, nontender to palpation, no guarding, no appreciable organomegaly Ext: ROM intact. No gross muscle atrophy, no edema, no contractures Neuro: Speech clear, face symmetrical and CN II-XII grossly intact with no noted focal neuro deficits Psych: Alert and oriented to person, place, time, and situation. Appropriate and pleasant affect. A total of 34 minutes of time were spent preparing this complex discharge summary. Pt was discharged on 02/10/2024 at 1:25 PM. Patient was seen independently by Nurse Practitioner. This document was prepared using [employer] dictation software. Please allow for errors in meal packer while rare they do occur. Patient Condition at Discharge: Stable Plan - Discharge Summary Discharge Rx Participant: No New Discharge Prescriptions: New Aspirin 81 mg PO DAILY 30 Days #30 tab Doxycycline [Vibramycin] 100 mg PO BID 7 Days #14 capsule Continue Loratadine 10 mg PO BID Metoprolol Tartrate [Lopressor] 25 mg PO BID Cyclobenzaprine HCl 10 mg PO TID PRN PRN Reason: Pain Famotidine [Pepcid] 20 mg PO DAILY Valsartan 320 mg PO DAILY Ergocalciferol [Vitamin D2 (1250 Mcg = 70962 Iu)] 1,250 mcg PO TU Magnesium Oxide [Magnesium] 1,000 mg PO DAILY Ferrous Sulfate [Iron (65 MG Elemental)] 325 mg PO DAILY EPINEPHrine (Auto Inject) [Epipen] 0.3 mg IM ONCE PRN PRN Reason: Anaphylaxis Albuterol Inhaler [Ventolin Hfa Inhaler] 1 - 2 puff INHALATION RT-Q6H PRN PRN Reason: Shortness Of Breath Omeprazole 40 mg PO DAILY Apixaban [Eliquis] 5 mg PO BID Gabapentin [Neurontin] 400 mg PO TID Atorvastatin [Lipitor] 40 mg PO HS hydroCHLOROthiazide 25 mg PO DAILY Spironolactone 50 mg PO DAILY Sucralfate [Carafate] 1 gm PO BID HYDROcodone/APAP 10-325MG [[place] 10-325] 1 tab PO QID PRN PRN Reason: Pain clonazePAM [KlonoPIN] 1 mg PO BID PRN PRN Reason: Anxiety methylPREDNISolone Dose Pack [Medrol Dose Pack] See Taper PO DIRECTED Discontinued Doxycycline Hyclate 100 mg PO DIRECTED Discharge Medication List Omeprazole 40 mg PO DAILY 07/10/23 [History] Apixaban [Eliquis] 5 mg PO BID 10/08/23 [History] Atorvastatin [Lipitor] 40 mg PO HS 11/18/23 [History] Cyclobenzaprine HCl 10 mg PO TID PRN 11/18/23 [History] Ergocalciferol [Vitamin D2 (1250 Mcg = 34760 Iu)] 1,250 mcg PO TU 11/18/23 [History] Famotidine [Pepcid] 20 mg PO DAILY 11/18/23 [History] Gabapentin [Neurontin] 400 mg PO TID 11/18/23 [History] Loratadine 10 mg PO BID 11/18/23 [History] Metoprolol Tartrate [Lopressor] 25 mg PO BID 11/18/23 [History] Spironolactone 50 mg PO DAILY 11/18/23 [History] Sucralfate [Carafate] 1 gm PO BID 11/18/23 [History] Valsartan 320 mg PO DAILY 11/18/23 [History] hydroCHLOROthiazide 25 mg PO DAILY 11/18/23 [History] Ferrous Sulfate [Iron (65 MG Elemental)] 325 mg PO DAILY 11/30/23 [History] HYDROcodone/APAP 10-325MG [[place] 10-325] 1 tab PO QID PRN 11/30/23 [History] Magnesium Oxide [Magnesium] 1,000 mg PO DAILY 11/30/23 [History] Albuterol Inhaler [Ventolin Hfa Inhaler] 1 - 2 puff INHALATION RT-Q6H PRN 01/16/24 [History] EPINEPHrine (Auto Inject) [Epipen] 0.3 mg IM ONCE PRN 01/16/24 [History] clonazePAM [KlonoPIN] 1 mg PO BID PRN 01/16/24 [History] methylPREDNISolone Dose Pack [Medrol Dose Pack] See Taper PO DIRECTED 02/08/24 [History] Aspirin 81 mg PO DAILY 30 Days #30 tab 02/10/24 [Rx] Doxycycline [Vibramycin] 100 mg PO BID 7 Days #14 capsule 02/10/24 [Rx] Follow up Appointment(s)/Referral(s): Aden Diaz MD [Primary Care Provider] - 1-2 days Activity/Diet/Wound Care/Special Instructions: Activity: As tolerated. Take breaks as needed. Diet: Heart healthy and carb consistent diet. Avoid salts, or foods with hidden salts such as canned or boxed foods and frozen dinners. Extra salt makes your heart work harder and traps the fluid in your body for longer. Special Instructions: Take all of your medications as directed and remember to keep all of your doctor's appointments and follow-up as needed. Thank you for allowing us to participate in your care, it was truly a pleasure having you for our patient!!! Discharge Disposition: HOME SELF-CARE
[2024-02-10] MEDS: HYDROcodone/APAP 10-325MG 1 EACH TAB PO PRN (13:57)
[2024-02-10 15:41] LABS: Chol/HDL Ratio 5.22 Ratio; LDL Cholesterol,Calculated 85.7 mg/dL (0.0-131.0)
== END 2024-02-10 14:12 | disposition home or self-care (01) ==
LOC: EC 18:07 → 3SCARD 22:15
PROVIDERS: ADMIT Internal Medicine; ATTEND Internal Medicine
DX: G45.9 Transient cerebral ischemic attack, unspecified (principal); R47.81 Slurred speech; M54.9 Dorsalgia, unspecified; R07.9 Chest pain, unspecified; I48.91 Unspecified atrial fibrillation; J18.9 Pneumonia, unspecified organism; I48.0 Paroxysmal atrial fibrillation; E66.9 Obesity, unspecified; I25.2 Old myocardial infarction; I25.10 Atherosclerotic heart disease of native coronary artery without angina pectoris; I10 Essential (primary) hypertension; E78.5 Hyperlipidemia, unspecified; E72.12 Methylenetetrahydrofolate reductase deficiency; R60.0 Localized edema; K21.9 Gastro-esophageal reflux disease without esophagitis; Z98.84 Bariatric surgery status; Z86.718 Personal history of other venous thrombosis and embolism; Z79.82 Long term (current) use of aspirin; Z79.01 Long term (current) use of anticoagulants; Z79.899 Other long term (current) drug therapy; Z86.73 Personal history of transient ischemic attack (TIA), and cerebral infarction without residual deficits; Z11.52 Encounter for screening for COVID-19
CPT/HCPCS: 96361; 96365; 96366 ×2; 96367; 99285; 36415; 95816; 93005; 97161; 92610; 80061; 80053; 87449; 83605; 83735; 84100; 84443; 84484; 85025; 85610; 85730; 87040; 83036; 87636; 93880; 70496; 70450; 70498; 71275; 70551; G0378 ×3; J0696 ×2; J1170 ×3; Q9967

== ENCOUNTER → 2024-03-23 | Outpatient (CLI) | payer OTHER ==
[2024-03-23 14:30] VITALS: BP 121/79; PULSE 92; RESP 14; TEMP 98.2; BMI 43.1
--- NOTE | 2024-03-23 14:35 | P.BASOAP ---
Subjective Progress Note Date: 03/23/24 He has GI bleed. Has diverticulosis. Has chronic gallbladder attacks. Has full cardiac work-up. Colonoscopy reviewed for tics and polyps, and hemorrhoids. Need gallbladder removal. Nitrostat cream for fissure. Sitz baths. SUTAB prescribed. Objective - Vital Signs Vital signs: Vital Signs Temp 98.2 F 03/23/24 13:54 Pulse 92 03/23/24 13:54 Resp 14 03/23/24 13:54 BP 121/79 03/23/24 13:54 Pulse Ox FiO2 Intake & Output 03/22/24 03/23/24 03/23/24 18:59 06:59 18:59 Weight 148.325 kg Assessment/Plan Plan: Date: 03/23/24 Initial Weight: Initial BMI: Current Weight: 148.325 kg Current BMI: 43.1 Type of Surgery: Total Volume in Band: Previous Volume: Volume Removed: Volume Added: Band Size:
[2024-03-23 15:29] LABS: INR 0.9 (<1.2); Partial Thromboplastin Time 26.3 sec (22.0-30.0); Prothrombin Time 10.4 sec (10.0-12.5)
[2024-03-23 19:11] LABS: HCT 45.8 % (39.6-50.0); HGB 14.2 g/dL (13.0-17.0); MCH 26.9 pg (27.0-32.0); MCV 86.7 FL (80.0-97.0); Mean Platelet Volume 9.4 FL (9.5-12.2); NRBC Per 100 WBC 0 X 10*3/uL (0.00-0.01); Platelet Count 353 X 10*3/uL (140-440); RBC 5.28 X 10*6/uL (4.40-5.60); WBC 6.65 X 10*3/uL (4.50-10.00)
[2024-03-23 19:50] LABS: % Iron Saturation 10.03 (15.00-50.00); ALT 13 U/L (10-49); AST 14 U/L (14-35); Albumin 4.4 g/dL (3.8-4.9); Alkaline Phosphatase 92 U/L (41-126); BUN/Creat Ratio 9.11 Ratio (12.00-20.00); Blood Urea Nitrogen 8.2 mg/dL (9.0-27.0); Calcium 9.6 mg/dL (8.7-10.3); Chloride 100 mmol/L (96-109); Chol/HDL Ratio 5.18 Ratio; Globulin 2.1 g/dL (1.6-3.3); Glucose 97 mg/dL (70-110); Iron 35 UG/DL (65-175); LDL Cholesterol,Calculated 101.9 mg/dL (0.0-131.0); Magnesium 2.2 mg/dL (1.5-2.4); Phosphorus 3.6 mg/dL (2.4-5.1); Potassium 4.9 mmol/L (3.5-5.5); Sodium 140 mmol/L (135-145); Total Bilirubin 0.2 mg/dL (0.3-1.2); Total Iron Binding Capacity 349 UG/DL (228-460); Total Protein 6.5 g/dL (6.2-8.2)
[2024-03-24 05:29] LABS: Prealbumin 25.8 mg/dL (18.0-42.0)
[2024-03-30 22:43] LABS: Albumin, LC/MS/MS 4.3 g/dL (3.6-5.1); Testosterone, Free, LC/MS/MS 48.3 pg/mL (46.0-224.0)
== END ==
LOC: BARWHC3 13:33
PROVIDERS: ATTEND Surgery Plastic and Reconstructive Surgery
DX: E66.01 Morbid (severe) obesity due to excess calories (principal); D50.8 Other iron deficiency anemias; K90.89 Other intestinal malabsorption; E89.1 Postprocedural hypoinsulinemia; E55.9 Vitamin D deficiency, unspecified; K74.1 Hepatic sclerosis; N19 Unspecified kidney failure; T56.894A Toxic effect of other metals, undetermined, initial encounter; K50.90 Crohn's disease, unspecified, without complications; K57.90 Diverticulosis of intestine, part unspecified, without perforation or abscess without bleeding; K64.8 Other hemorrhoids; K82.8 Other specified diseases of gallbladder; Z68.41 Body mass index [BMI] 40.0-44.9, adult
CPT/HCPCS: 84255; 84134; 84425; 80061; 80053; 84443; 82607; 82728; 82525; 82746; 83540; 83550; 83735; 84100; 84590; 84630; 85027; 85610; 85730; 84270; 82040; 84403; 83090; 82306; 83970; 83036; G0463; 99211

== ENCOUNTER → 2024-03-23 | Outpatient (CLI) | payer OTHER | END | disposition home or self-care (01) | LOC: LABT 14:49 | PROVIDERS: ATTEND Family Medicine | DX: Z53.9 Procedure and treatment not carried out, unspecified reason (principal) ==

== ENCOUNTER 2024-04-18 07:17 | Day surgery (SDC) | payer OTHER ==
[2024-04-14 17:28] VITALS: BMI 32.1
[~2024-04-18 07:17] MED LIST changes: -LACTATED RINGERS 1,000 ML IV SCH
[2024-04-18 07:40] VITALS: TEMP 97
[2024-04-18] MEDS: IV FLUID CONTINUATION 1,000 ML IV ONE (07:40)
--- NOTE | 2024-04-18 07:47 | P.GSHP ---
History of Present Illness H&P Date: 04/18/24 CHIEF COMPLAINT: Change in bowel habits GI bleed HISTORY OF PRESENT ILLNESS: The patient is a 44-year-old male who presents for change in bowel habits over 6 month including GI bleed. Lower endoscopy was offered for further evaluation and management. PAST MEDICAL HISTORY: Please see list. PAST SURGICAL HISTORY: Please see list. MEDICATIONS: Please see list. ALLERGIES: Please see list. SOCIAL HISTORY: No illicit drug use FAMILY HISTORY: No reports of Crohn disease or ulcerative colitis. REVIEW OF ORGAN SYSTEMS: CONSTITUTIONAL: No reports of fevers or chills. PHYSICAL EXAM: VITAL SIGNS: Stable GENERAL: Well-developed pleasant in no acute distress. HEENT: No scleral icterus. Extraocular movements grossly intact. Moist buccal mucosa. NECK: Supple without lymphadenopathy. CHEST: Unlabored respirations. Equal bilateral excursions. CARDIOVASCULAR: Regular rate and rhythm. Distal 2+ pulses. ABDOMEN: Soft, nontender, nondistended. MUSCULOSKELETAL: No clubbing, cyanosis, or edema. ASSESSMENT: 1. Change in bowel habit GI bleed 2. GI bleed PLAN: 1. Recommend proceeding with a lower endoscopy Past Medical History Past Medical History: Atrial Fibrillation, Asthma, Blood Disorder, Deep Vein Thrombosis (DVT), GERD/Reflux, Hearing Disorder / Deafness, Hypertension, Myocardial Infarction ([place]), Sleep Apnea/CPAP/BIPAP Additional Past Medical History / Comment(s): bleeding with and without stools from the rectal area,DVT X 3- LAST TIME 2012- LT LEG, LUMBAR DDD- . HAS HX MTHFR GENE MUTATION-POSITIVE FOR HETEROZYGOUS PER DR. FRANCISCO'S OFFICE, doen not use CPAP, chronic swelling left lower leg Last Myocardial Infarction Date:: 09/2021 History of Any Multi-Drug Resistant Organisms: None Reported Past Surgical History: Bariatric Surgery, Cardiac Ablation, Heart Catheterization, Joint Replacement Additional Past Surgical History / Comment(s): LEFT KNEE REPLACEMENT, LT INDEX JOINT REPLACEMENT, PAIN CLINIC PROCEDURES, COLONOSCOPY, EGD. Gastric bypass 07-06-23 Past Anesthesia/Blood Transfusion Reactions: Previous Problems w/ Anesthesia, Family History of Problems w/ Anesthesia, Motion Sickness Additional Past Anesthesia/Blood Transfusion Reaction / Comment(s): HARD TO PUT TO SLEEP-(pt and father)-needs more than normal. no hx blood transfusion Smoking Status: Never smoker - Past Family History Sister(s) Family Medical History: Cancer Additional Family Medical History / Comment(s): Skin cancer. Mother History Unknown: Yes Medications and Allergies Home Medications Medication Instructions Recorded Confirmed Type Omeprazole 40 mg PO DAILY 07/10/23 04/18/24 History Apixaban [Eliquis] 5 mg PO BID 10/08/23 04/18/24 History Cyclobenzaprine HCl 10 mg PO TID PRN 11/18/23 04/18/24 History Ergocalciferol [Vitamin D2 (1250 1,250 mcg PO TU 11/18/23 04/18/24 History Mcg = 38630 Iu)] Famotidine [Pepcid] 20 mg PO QAM 11/18/23 04/18/24 History Gabapentin [Neurontin] 400 mg PO TID 11/18/23 04/18/24 History Loratadine 10 mg PO BID 11/18/23 04/18/24 History Metoprolol Tartrate [Lopressor] 25 mg PO BID 11/18/23 04/18/24 History Spironolactone 50 mg PO DAILY 11/18/23 04/18/24 History Sucralfate [Carafate] 1 gm PO BID 11/18/23 04/18/24 History Valsartan 320 mg PO QAM 11/18/23 04/18/24 History hydroCHLOROthiazide 25 mg PO DAILY 11/18/23 04/18/24 History Ferrous Sulfate [Iron (65 MG 325 mg PO DAILY 11/30/23 04/18/24 History Elemental)] HYDROcodone/APAP 10-325MG [[place] 1 tab PO QID PRN 11/30/23 04/18/24 History 10-325] Magnesium Oxide [Magnesium] 1,000 mg PO DAILY 11/30/23 04/18/24 History Albuterol Inhaler [Ventolin Hfa 1 - 2 puff INHALATION RT-Q6H PRN 01/16/24 04/18/24 History Inhaler] EPINEPHrine (Auto Inject) [Epipen] 0.3 mg IM ONCE PRN 01/16/24 04/18/24 History clonazePAM [KlonoPIN] 1 mg PO BID PRN 01/16/24 04/18/24 History Aspirin 81 mg PO DAILY 30 Days #30 tab 02/10/24 04/18/24 Rx Hydrocortisone/Pramoxine 1 applic RECTAL BID #20 gm 03/23/24 04/18/24 Rx [Proctofoam-Hc 1%-1% Foam] Allergies Allergy/AdvReac Type Severity Reaction Status Date / Time No Known Allergies Allergy Verified 04/18/24 07:34 Surgical - Exam Vital Signs Temp Pulse Resp BP Pulse Ox 97 F L 103 H 16 142/74 100 04/18/24 07:35 04/18/24 07:35 04/18/24 07:35 04/18/24 07:35 04/18/24 07:35
[2024-04-18] MEDS ORDERED: PROPOFOL 10 MG/ML 20 ML VIAL IV ONE (07:50)
[2024-04-18] MEDS: LACTATED RINGERS 1,000 ML IV SCH (07:52)
--- NOTE | 2024-04-18 08:22 | P.PCN ---
Date of Procedure: 04/18/24 Description of Procedure: PREOPERATIVE DIAGNOSIS: GI bleeding History of anticoagulant use POSTOPERATIVE DIAGNOSIS: Tubular adenoma ascending colon Internal hemorrhoids, grade 2 OPERATION: Colonoscopy to the ileocecal valve and appendiceal orifice, cecum Colonoscopy with cold forceps biopsy SURGEON: Lo Sun MD. ANESTHESIA: MAC. INDICATIONS: The patient is an 64-year-old male who presents family history of malignant colon polyps and personal history of colon polyps. Last colonoscopy 5 years. Benefits and risks were described and informed consent was obtained. DESCRIPTION OF PROCEDURE: The patient had undergone Sutab prep. The patient had been brought into the operating room and laid in the left lateral decubitus position. After adequate intravenous sedation, the rectum was examined with 2% lidocaine jelly. The prostate was unremarkable. External hemorrhoids were encountered. The rectal tone was within normal limits. No lesions were palpated in the rectal vault. An Olympus colonoscope was advanced until the cecum, ileocecal valve and appendiceal orifice were clearly viewed. The prep was fair. Moderate bubbles were identified within the colon. No large sigmoid diverticulosis was encountered. Colonic polyps were found and removed. No evidence of focal colitis was found. Retroflexion of the scope demonstrated grade 2 internal hemorrhoids without active bleeding or inflammation. The colon was desufflated. The patient had tolerated the procedure well. Withdrawal time was over 6 minutes. FINDINGS: Aronchick preparation quality scale 2+ (1-5) Internal hemorrhoids, grade 2 External hemorrhoids, grade 2. No arteriovenous malformations. No large sigmoid diverticulosis Removal of 1 polyps: - Cold forceps biopsy at mid transverse colon, 4 mm adenoma No focal colitis. RECOMMENDATIONS: Repeat colonoscopy 3 years, 2026 Plan - Discharge Summary Discharge Rx Participant: No New Discharge Prescriptions: Continue Loratadine 10 mg PO BID Metoprolol Tartrate [Lopressor] 25 mg PO BID Cyclobenzaprine HCl 10 mg PO TID PRN PRN Reason: Pain Valsartan 320 mg PO QAM Ergocalciferol [Vitamin D2 (1250 Mcg = 30961 Iu)] 1,250 mcg PO TU Magnesium Oxide [Magnesium] 1,000 mg PO DAILY Ferrous Sulfate [Iron (65 MG Elemental)] 325 mg PO DAILY EPINEPHrine (Auto Inject) [Epipen] 0.3 mg IM ONCE PRN PRN Reason: Anaphylaxis Albuterol Inhaler [Ventolin Hfa Inhaler] 1 - 2 puff INHALATION RT-Q6H PRN PRN Reason: Shortness Of Breath Aspirin 81 mg PO DAILY 30 Days #30 tab Hydrocortisone/Pramoxine [Proctofoam-Hc 1%-1% Foam] 1 applic RECTAL BID #20 gm Omeprazole 40 mg PO DAILY Apixaban [Eliquis] 5 mg PO BID Gabapentin [Neurontin] 400 mg PO TID hydroCHLOROthiazide 25 mg PO DAILY Spironolactone 50 mg PO DAILY Sucralfate [Carafate] 1 gm PO BID HYDROcodone/APAP 10-325MG [[place] 10-325] 1 tab PO QID PRN PRN Reason: Pain clonazePAM [KlonoPIN] 1 mg PO BID PRN PRN Reason: Anxiety Discontinued Famotidine [Pepcid] 20 mg PO QAM Discharge Medication List Omeprazole 40 mg PO DAILY 07/10/23 [History] Apixaban [Eliquis] 5 mg PO BID 10/08/23 [History] Cyclobenzaprine HCl 10 mg PO TID PRN 11/18/23 [History] Ergocalciferol [Vitamin D2 (1250 Mcg = 11356 Iu)] 1,250 mcg PO TU 11/18/23 [History] Gabapentin [Neurontin] 400 mg PO TID 11/18/23 [History] Loratadine 10 mg PO BID 11/18/23 [History] Metoprolol Tartrate [Lopressor] 25 mg PO BID 11/18/23 [History] Spironolactone 50 mg PO DAILY 11/18/23 [History] Sucralfate [Carafate] 1 gm PO BID 11/18/23 [History] Valsartan 320 mg PO QAM 11/18/23 [History] hydroCHLOROthiazide 25 mg PO DAILY 11/18/23 [History] Ferrous Sulfate [Iron (65 MG Elemental)] 325 mg PO DAILY 11/30/23 [History] HYDROcodone/APAP 10-325MG [[place] 10-325] 1 tab PO QID PRN 11/30/23 [History] Magnesium Oxide [Magnesium] 1,000 mg PO DAILY 11/30/23 [History] Albuterol Inhaler [Ventolin Hfa Inhaler] 1 - 2 puff INHALATION RT-Q6H PRN 01/16/24 [History] EPINEPHrine (Auto Inject) [Epipen] 0.3 mg IM ONCE PRN 01/16/24 [History] clonazePAM [KlonoPIN] 1 mg PO BID PRN 01/16/24 [History] Aspirin 81 mg PO DAILY 30 Days #30 tab 02/10/24 [Rx] Hydrocortisone/Pramoxine [Proctofoam-Hc 1%-1% Foam] 1 applic RECTAL BID #20 gm 03/23/24 [Rx] Follow up Appointment(s)/Referral(s): [facility] [place] [place] - 05/11/24 Patient Instructions/Handouts: Colorectal Polyps (GEN), Hemorrhoids (DC), Rectal Bleeding (DC) Activity/Diet/Wound Care/Special Instructions: Repeat colonoscopy 3 years, 2026 Discharge Disposition: HOME SELF-CARE
[2024-04-18 08:29] VITALS: PULSE 79; RESP 18
[2024-04-18 08:32] VITALS: BP 130/83
== END 2024-04-18 09:04 | disposition home or self-care (01) ==
LOC: ORWHC2ENDO 07:17
PROVIDERS: ATTEND Surgery Plastic and Reconstructive Surgery
DX: D12.2 Benign neoplasm of ascending colon (principal); K64.1 Second degree hemorrhoids; K64.4 Residual hemorrhoidal skin tags; K21.9 Gastro-esophageal reflux disease without esophagitis; J45.909 Unspecified asthma, uncomplicated; I25.2 Old myocardial infarction; I10 Essential (primary) hypertension; I48.91 Unspecified atrial fibrillation; G47.33 Obstructive sleep apnea (adult) (pediatric); Z79.01 Long term (current) use of anticoagulants; Z79.82 Long term (current) use of aspirin; Z79.899 Other long term (current) drug therapy; Z80.0 Family history of malignant neoplasm of digestive organs; Z86.718 Personal history of other venous thrombosis and embolism; Z98.84 Bariatric surgery status; Z95.5 Presence of coronary angioplasty implant and graft
CPT/HCPCS: 88305; 45380; J2704

== ENCOUNTER → 2024-06-01 | Outpatient (CLI) | payer OTHER ==
[2024-06-02 02:26] LABS: Basophils # (A) 0.04 X 10*3/uL (0.00-0.10); Basophils % (A) 0.5 %; Eosinophils # (A) 0.17 X 10*3/uL (0.04-0.35); HGB 12.6 g/dL (13.0-17.0); Lymphocytes # (A) 1.48 X 10*3/uL (0.90-5.00); Lymphocytes % (A) 17.2 %; MCH 26.4 pg (27.0-32.0); MCHC 30.7 g/dL (32.0-37.0); MCV 85.8 FL (80.0-97.0); Mean Platelet Volume 9.3 FL (9.5-12.2); Monocytes # (A) 0.59 X 10*3/uL (0.20-1.00); Monocytes % (A) 6.9 %; NRBC Per 100 WBC 0 X 10*3/uL (0.00-0.01); Neutrophils # (A) 6.31 X 10*3/uL (1.80-7.70); Neutrophils % (A) 73.2 %; Platelet Count 329 X 10*3/uL (140-440); RBC 4.78 X 10*6/uL (4.40-5.60); RDW 13.3 % (11.5-14.5); WBC 8.61 X 10*3/uL (4.50-10.00)
[2024-06-02 02:56] LABS: ALT 10 U/L (10-49); AST 17 U/L (14-35); Albumin 4.1 g/dL (3.8-4.9); Albumin/Globulin Ratio 1.95 Ratio (1.60-3.17); Alkaline Phosphatase 78 U/L (41-126); BUN/Creat Ratio 10.33 Ratio (12.00-20.00); Blood Urea Nitrogen 9.3 mg/dL (9.0-27.0); Calcium 9.8 mg/dL (8.7-10.3); Carbon Dioxide 27.2 mmol/L (21.6-31.8); Chloride 101 mmol/L (96-109); Globulin 2.1 g/dL (1.6-3.3); Glucose 118 mg/dL (70-110); Potassium 4.4 mmol/L (3.5-5.5); Sodium 140 mmol/L (135-145); Total Bilirubin 0.3 mg/dL (0.3-1.2); Total Protein 6.2 g/dL (6.2-8.2)
== END | disposition home or self-care (01) ==
LOC: LABPAT 16:05
PROVIDERS: ATTEND Surgery Plastic and Reconstructive Surgery
DX: Z01.812 Encounter for preprocedural laboratory examination (principal)
CPT/HCPCS: 80053; 85025

== ENCOUNTER 2024-06-03 06:10 | Day surgery (SDC) | payer OTHER ==
[2024-06-01 15:45] VITALS: BMI 40.8
[~2024-06-03 06:10] MED LIST changes: +MIDAZOLAM 2 MG/2 ML VIAL IV PRN; +fentaNYL (PF) 50 MCG/ML 2 ML AMP IVP PRN
--- NOTE | 2024-06-03 07:07 | P.GSHP ---
History of Present Illness H&P Date: 06/03/24 CHIEF COMPLAINT: Cholecystitis HISTORY OF PRESENT ILLNESS: The patient is a 44-year-old male who presents with history of epigastric including right upper quadrant abdominal pain. He underwent diagnostic studies for the gallbladder. Separately his clinical picture was consistent with cholecystitis. Now he presents for surgical intervention. PAST MEDICAL HISTORY: Please see list PAST SURGICAL HISTORY: Please see list MEDICATIONS: Please see list ALLERGIES: Denies. SOCIAL HISTORY: No illicit drug use or recent tobacco use FAMILY HISTORY: Pertinent for gallbladder disease REVIEW OF ORGAN SYSTEMS: CONSTITUTIONAL: No reports of fevers or chills. HEENT: Denies any troubles with hearing. ENDOCRINE: No reports of hypothyroidism. No diabetes. RESPIRATORY: No recent pneumonias. CARDIOVASCULAR: Past palpitations GI: Has blood in stools or constipation. MUSCULOSKELETAL: Has occasional joint pain including back pain. NEURO: No seizure disorders or headaches. No recent stroke. PSYCH: No depression or suicidal ideation. HEMATOLOGIC: No personal or family history of DVTs or pulmonary emboli. PHYSICAL EXAM: VITAL SIGNS: Afebrile vital signs stable GENERAL: Well-developed pleasant male in no acute distress. HEENT: No scleral icterus. Extraocular movements grossly intact. Moist buccal mucosa. NECK: Supple without lymphadenopathy. CHEST: Unlabored respirations. Equal bilateral excursions. CARDIOVASCULAR: Regular rate regular rhythm rhythm. Distal 2+ pulses. ABDOMEN: Soft, nondistended. Tender along the epigastrium and right upper quadrant. MUSCULOSKELETAL: No clubbing, cyanosis, or edema. NEURO : No focal or lateralizing signs. Cranial nerves II-12 within normal limits. PSYCH: Alert and oriented to person, place and time. SKIN: Well perfused. Good skin turgor. ASSESSMENT: 1. Epigastric and right upper quadrant abdominal pain 2. Chronic cholecystitis PLAN: 1. Will need a robotic cholecystectomy possible open. Benefits and risks were described. 2. Heparin for DVT prophylaxis 5000 units. 3. Antibiotic prophylaxis. 4. CBC and CMP reviewed. 5. Non-narcotic pre and post op pain management reviewed. 6. Indocyanine green for biliary imaging. Past Medical History Past Medical History: Atrial Fibrillation, Asthma, Blood Disorder, Deep Vein Thrombosis (DVT), GERD/Reflux, Hearing Disorder / Deafness, Hypertension, Myocardial Infarction ([place]), Sleep Apnea/CPAP/BIPAP Additional Past Medical History / Comment(s): bleeding with and without stools from the rectal area,DVT X 3- LAST TIME 2013- LT LEG, LUMBAR DDD- . HAS HX MTHFR GENE MUTATION-POSITIVE FOR HETEROZYGOUS PER DR. FRANCISCO'S OFFICE, doen not use CPAP, chronic swelling left lower leg Last Myocardial Infarction Date:: 09/2021 History of Any Multi-Drug Resistant Organisms: None Reported Past Surgical History: Bariatric Surgery, Cardiac Ablation, Heart Catheterization, Joint Replacement Additional Past Surgical History / Comment(s): LEFT KNEE REPLACEMENT, LT INDEX JOINT REPLACEMENT, PAIN CLINIC PROCEDURES, COLONOSCOPY, EGD. Gastric bypass 07-06-23 Past Anesthesia/Blood Transfusion Reactions: Previous Problems w/ Anesthesia, Family History of Problems w/ Anesthesia, Motion Sickness Additional Past Anesthesia/Blood Transfusion Reaction / Comment(s): HARD TO PUT TO SLEEP-(pt and father)-needs more than normal. no hx blood transfusion Smoking Status: Never smoker - Past Family History Sister(s) Family Medical History: Cancer Additional Family Medical History / Comment(s): Skin cancer. Mother History Unknown: Yes Medications and Allergies Home Medications Medication Instructions Recorded Confirmed Type Omeprazole 40 mg PO QAM 07/10/23 06/03/24 History Apixaban [Eliquis] 5 mg PO BID 10/08/23 06/03/24 History Cyclobenzaprine HCl 10 mg PO TID PRN 11/18/23 06/03/24 History Ergocalciferol [Vitamin D2 (1250 1,250 mcg PO TU 11/18/23 06/03/24 History Mcg = 53454 Iu)] Gabapentin [Neurontin] 400 mg PO TID 11/18/23 06/03/24 History Metoprolol Tartrate [Lopressor] 25 mg PO BID 11/18/23 06/03/24 History Spironolactone 50 mg PO DAILY 11/18/23 06/03/24 History Sucralfate [Carafate] 1 gm PO BID 11/18/23 06/03/24 History Valsartan 160 mg PO QAM 11/18/23 06/03/24 History hydroCHLOROthiazide 25 mg PO DAILY 11/18/23 06/03/24 History Ferrous Sulfate [Iron (65 MG 325 mg PO DAILY 11/30/23 06/03/24 History Elemental)] HYDROcodone/APAP 10-325MG [[place] 1 tab PO QID PRN 11/30/23 06/03/24 History 10-325] Magnesium Oxide [Magnesium] 1,000 mg PO DAILY 11/30/23 06/03/24 History EPINEPHrine (Auto Inject) [Epipen] 0.3 mg IM ONCE PRN 01/16/24 06/03/24 History clonazePAM [KlonoPIN] 1 mg PO BID PRN 01/16/24 06/03/24 History Aspirin 81 mg PO DAILY 30 Days #30 tab 02/10/24 06/03/24 Rx Allergies Allergy/AdvReac Type Severity Reaction Status Date / Time No Known Allergies Allergy Verified 06/03/24 06:53
[2024-06-03] MEDS: IV FLUID CONTINUATION 1,000 ML IV ONE (07:08)
[2024-06-03] MEDS: LACTATED RINGERS 1,000 ML IV SCH (07:17)
[2024-06-03] MEDS: ONDANSETRON 4 MG/2 ML VIAL IVP ONE (07:18)
[2024-06-03] MEDS: HEPARIN SODIUM,PORCINE 5,000 UNIT/ML 1 ML VIAL SQ PRN (07:18)
[2024-06-03] MEDS: DEXAMETHASONE SOD PHOSPHATE 4 MG/ML 1 ML VIAL IV ONE (07:18)
[2024-06-03] MEDS ORDERED: ROCURONIUM 10 MG/ML (5 ML VIAL) IV ONE (07:29)
[2024-06-03] MEDS ORDERED: NEOSTIGMINE 1 MG/ML 10 ML VIAL ONE (07:29)
[2024-06-03] MEDS ORDERED: PROPOFOL 10 MG/ML 20 ML VIAL IV ONE (07:29)
[2024-06-03] MEDS ORDERED: SUCCINYLCHOLINE CHLORIDE 200 MG/10 ML VIAL IV ONE (07:29)
[2024-06-03] MEDS ORDERED: KETOROLAC 30 MG/ML 1 ML VIAL ONE (07:29)
[2024-06-03] MEDS ORDERED: HYDROmorphone (PF) 1 MG/ML ONE (07:29)
[2024-06-03] MEDS ORDERED: LIDOCAINE 1% INJ 10MG/ML (20 ML MDV) ONE (07:29)
[2024-06-03] MEDS ORDERED: MIDAZOLAM 2 MG/2 ML VIAL ONE (07:29)
[2024-06-03] MEDS ORDERED: fentaNYL (PF) 50 MCG/ML 2 ML AMP ONE (07:29)
[2024-06-03] MEDS ORDERED: GLYCOPYRROLATE 0.2 MG/ML 2 ML VIAL ONE (07:29)
[2024-06-03] MEDS ORDERED: METOPROLOL TARTRATE 5 MG/5 ML VIAL IVP ONE (07:29)
[2024-06-03] MEDS: FAMOTIDINE 20 MG/2 ML VIAL IV STA (07:31)
[2024-06-03] MEDS: ceFAZolin 3 GM in SODIUM CHLORIDE 0.9% 100 ML IVPB PRN (07:35)
[2024-06-03] MEDS: LIDOCAINE 1%-EPI 1:100,000 20 ML VIAL SQ ONE (08:01)
[2024-06-03] MEDS: LACTATED RINGERS 1,000 ML IV ONE (08:50)
[2024-06-03] MEDS: HYDROmorphone 0.5 MG/0.5 ML SYRINGE IVP PRN (09:50)
[2024-06-03] MEDS: hydrALAZINE HCL 20 MG/ML 1 ML VIAL IVP PRN (09:57)
--- NOTE | 2024-06-03 10:47 | P.OP ---
Date of Procedure: 06/03/24 Description of Procedure: SURGEON: [place] MD PREOPERATIVE DIAGNOSES: 1. Chronic cholecystitis 2. Atrial fibrillation 3. Hyperlipidemia 4. Gastroesophageal reflux disease 5. Hypertensive heart disease 6. Depressive disorder 7. Coronary artery disease 8. History of hypercoagulable disorder, MTHFR 9. Deep venous thrombosis 10. Myocardial infarction, history 11. Phosphorus low 12. Vitamin D deficiency 13. Hypertriglyceridemia 14. Abnormal EKG 15. Morbid obesity due to excess calories, BMI 41.9 16. Status post sleeve gastrectomy 17. Chronic anticoagulation 18. Symptomatic internal/external hemorrhoids POSTOPERATIVE DIAGNOSES: 1. Chronic cholecystitis with hydrops cholecystitis 2. Atrial fibrillation 3. Hyperlipidemia 4. Gastroesophageal reflux disease 5. Hypertensive heart disease 6. Depressive disorder 7. Coronary artery disease 8. History of hypercoagulable disorder, MTHFR 9. Deep venous thrombosis 10. Myocardial infarction, history 11. Phosphorus low 12. Vitamin D deficiency 13. Hypertriglyceridemia 14. Abnormal EKG 15. Morbid obesity due to excess calories, BMI 41.9 16. Status post sleeve gastrectomy 17. Chronic anticoagulation 18. Symptomatic internal/external hemorrhoids OPERATION: Robotic-assisted da Dae Xi laparoscopic cholecystectomy, multiport with FIREFLY ESTIMATED BLOOD LOSS: 10 mL. SPECIMENS REMOVED: Gallbladder. COMPLICATIONS: None. OPERATIVE FINDINGS: 1. Hydrops cholecystitis with gallbladder 200% size of normal gallbladder, 15 cm INDICATIONS: The patient is a 44-year-old male who presents with symptomatic gallstones. Robotic assisted laparoscopic approach was described. Benefits and risks of the procedure including but not limited to bleeding, infection, injury to the biliary tree was described. Informed consent was obtained. DESCRIPTION OF PROCEDURE: Patient was brought to the operating room, placed in supine position. After general induction, the abdomen had been prepped and draped in standard sterile fashion. The robotic da Dae XI system was primed. After a timeout protocol was performed, the patient had been prepped and draped in standard sterile fashion. The patient was injected with indocyanine green. A 5 mm 0 degrees laparoscopic trocar entry was performed along the left upper quadrant. The abdomen insufflated to 15 mmHg pressure which was tolerated well. Diagnostic laparoscopy demonstrated no injury to bowel viscera or mesentery. The liver surface was unremarkable. Next, two 8 mm robotic ports were placed along the right upper abdomen. The camera 8-mm port was maintained along the epigastrium. Another 8 mm port was placed along the left upper abdominal wall after exchanging the 5 mm port. Please note that the ports were placed at least 10 to 15 cm away from the target anatomy of the gallbladder. The robot was docked along the left lateral abdomen. The patient was repositioned in reverse Trendelenburg position. Using a grasper for arm 3, a grasper for arm 4, including hook cautery for arm 1, the robotic system was docked and primed as described. Instruments were interchanged by the assistant professor of physics including hook cautery, Bovie cautery and clip appliers. I had sat at the console. The gallbladder was moderately distended with features of hydrops cholecystitis. Dome down technique was performed from the fundus towards the infundibulum using hook artery. Next attention was brought to the infundibulum and cystic structures. The infundibulum and cystic duct were dissected free from surrounding tissues. The cystic duct was isolated. FIREFLY was used to identify the cystic artery and cystic structures. A critical view of safety was obtained. Large PLASTIC clips were used throughout the entire case. Using a clip surgical corsetier, 3 clips were placed along the cystic artery and divided using hook artery. Additional venous structure was divided after placing 2 clips. Similarly, at the junction of the infundibulum and cystic duct, 3 clips were applied and divided using hook artery. Electro-Bovie cautery was used to remove the gallbladder from the hepatic fossa. Hemostasis was checked and found to be adequate. The robot was undocked. I re-scrubbed into the case. An initial 10 mm Endo Catch bag was used to envelope the gallbladder however was too large. An additional 10 mm Endo Catch bag via the left upper quadrant incision was placed, the specimen was removed from the abdominal cavity after widening the incision to 3 cm. Jomar Rosa 0 Vicryl was used to close the fascial defect. All pneumoperitoneum instruments were evacuated from the abdominal cavity. The incisions were reapproximated using 4-0 Monocryl in an interrupted subcuticular fashion. Please note along the trocar sites, local anesthetic was placed as a field block prior to insertion of all instruments. Liquid glue was applied to the skin. At the end of the procedure needle, sponge, and instrument count had been verified correct by the neurosurgical nurse practitioner. The patient was transferred to postanesthesia care unit in stable condition. Intraoperative films were shared with the patient's family. Plan - Discharge Summary Discharge Rx Participant: No New Discharge Prescriptions: New witmaggy Gregg [Tucks Medicated Pads] 1 pad TOPICAL BID #30 pad Simethicone [Gas-X] 125 mg PO AC-TID PRN #20 capsule PRN Reason: Pain Acetaminophen Tab [Tylenol Tab] 1,000 mg PO Q6HR PRN #30 tablet PRN Reason: Pain Pramox/Mineral Oil/Znox Oint [Tucks Hemorrhoidal Oint] 1 applic RECTAL BID #28 gm Continue Metoprolol Tartrate [Lopressor] 25 mg PO BID Cyclobenzaprine HCl 10 mg PO TID PRN PRN Reason: Pain Valsartan 160 mg PO QAM Ergocalciferol [Vitamin D2 (1250 Mcg = 57409 Iu)] 1,250 mcg PO TU Magnesium Oxide [Magnesium] 1,000 mg PO DAILY Ferrous Sulfate [Iron (65 MG Elemental)] 325 mg PO DAILY EPINEPHrine (Auto Inject) [Epipen] 0.3 mg IM ONCE PRN PRN Reason: Anaphylaxis Aspirin 81 mg PO DAILY 30 Days #30 tab Omeprazole 40 mg PO QAM Gabapentin [Neurontin] 400 mg PO TID hydroCHLOROthiazide 25 mg PO DAILY Spironolactone 50 mg PO DAILY HYDROcodone/APAP 10-325MG [[place] 10-325] 1 tab PO QID PRN PRN Reason: Pain clonazePAM [KlonoPIN] 1 mg PO BID PRN PRN Reason: Anxiety Discontinued Apixaban [Eliquis] 5 mg PO BID Sucralfate [Carafate] 1 gm PO BID Discharge Medication List Omeprazole 40 mg PO QAM 07/10/23 [History] Cyclobenzaprine HCl 10 mg PO TID PRN 11/18/23 [History] Ergocalciferol [Vitamin D2 (1250 Mcg = 77014 Iu)] 1,250 mcg PO TU 11/18/23 [History] Gabapentin [Neurontin] 400 mg PO TID 11/18/23 [History] Metoprolol Tartrate [Lopressor] 25 mg PO BID 11/18/23 [History] Spironolactone 50 mg PO DAILY 11/18/23 [History] Valsartan 160 mg PO QAM 11/18/23 [History] hydroCHLOROthiazide 25 mg PO DAILY 11/18/23 [History] Ferrous Sulfate [Iron (65 MG Elemental)] 325 mg PO DAILY 11/30/23 [History] HYDROcodone/APAP 10-325MG [[place] 10-325] 1 tab PO QID PRN 11/30/23 [History] Magnesium Oxide [Magnesium] 1,000 mg PO DAILY 11/30/23 [History] EPINEPHrine (Auto Inject) [Epipen] 0.3 mg IM ONCE PRN 01/16/24 [History] clonazePAM [KlonoPIN] 1 mg PO BID PRN 01/16/24 [History] Aspirin 81 mg PO DAILY 30 Days #30 tab 02/10/24 [Rx] Acetaminophen Tab [Tylenol Tab] 1,000 mg PO Q6HR PRN #30 tablet 06/03/24 [Rx] Pramox/Mineral Oil/Znox Oint [Tucks Hemorrhoidal Oint] 1 applic RECTAL BID #28 gm 06/03/24 [Rx] Simethicone [Gas-X] 125 mg PO AC-TID PRN #20 capsule 06/03/24 [Rx] billy crookseL [Tucks Medicated Pads] 1 pad TOPICAL BID #30 pad 06/03/24 [Rx] Follow up Appointment(s)/Referral(s): Bariatric [place], [place] [NON-STAFF] - 06/08/24 4:00 pm Patient Instructions/Handouts: *Surgery [facility] - (Anesthesia) Discharge Instructions Outpatient Surgery, Hemorrhoids (DC), Low Fat Diet (DC), Sitz Bath (DC), Laparoscopic Cholecystectomy (DC) Activity/Diet/Wound Care/Special Instructions: DO NOT RESTART ELIQUIS UNTIL ThursdayJUNE 06 No lifting over 10 pounds in 2 weeks until Jun 17. March shower. No bath tub soaks for two weeks until Jun 17. NO LONG DRIVES OR AIRPLANE RIDES OVER 30 MINUTES FOR THE NEXT 2 WEEKS DUE TO HIGH RISK OF PULMONARY EMBOLISM/DVTs Diet as tolerated. No driving while on narcotics. Use Tylenol scheduled for the next 24-48 hours for best pain relief. Use ice along incisions for today to prevent swelling. For today, avoid high fat foods for next 2 days HEMORRHOIDS Use Tucks and preparation H Discharge Disposition: HOME SELF-CARE
[2024-06-03] MEDS: HYDROcodone/APAP 10-325MG 1 EACH TAB PO ONE (11:25)
[2024-06-03] MEDS: INDOCYANINE GREEN 25 MG VIAL IV STA (13:47)
--- NOTE | 2024-06-03 14:38 | P.PN ---
Progress Note - Text Progress Note Date: 06/03/24 Patient reports moderate diffuse pain including from hemorrhoids and back pain. He is very uncomfortable to go home. Patient being admitted for observation. Will continue with pain management. Start sitz bath's.
[2024-06-03] MEDS ORDERED: CYCLOBENZAPRINE 10 MG TAB PO PRN (14:40)
[2024-06-03] MEDS ORDERED: NON FORMULARY DRUG (Epinephrine (Auto Inject) 0.3 MG/0.3 ML Each) IM PRN (14:40)
[2024-06-03] MEDS: HYDROmorphone 1 MG/ML 1 ML SYRINGE IVP PRN (14:48)
[2024-06-03] MEDS: HYDROCORTISONE 2.5% RECTAL CREAM 30 GM TUBE RECTAL SCH (15:36)
[2024-06-03] MEDS: ENOXAPARIN 40 MG/0.4 ML SYRINGE SQ SCH (15:38)
[2024-06-03] MEDS: SIMETHICONE 40 MG/0.6 ML DROPS 2,000 MG/30 ML BOTTLE PO SCH (15:38)
--- NOTE | 2024-06-03 16:24 | P.CONS ---
History of Present Illness - Reason for Consult Consult date: 06/03/24 Medical Management Requesting physician: Lo Sun - History of Present Illness History of Presenting Illness: Patient is a very pleasant 44-year-old male with a past medical history of CAD, atrial fibrillation status postcardiac ablation on anticoagulation with Eliquis (stopped taking 3 days ago for planned surgical procedure), hypertension, hyperlipidemia, GERD, MTHFR gene mutation, TIA, chronic swelling left lower extremity, and gastric bypass 07/06/2023. He is currently admitted under general surgery team status post laparoscopic cholecystectomy secondary to chronic cholecystitis. Patient was seen and evaluated at bedside in room 619. He reports postoperative nausea and moderate postoperative abdominal pain. He denies having any headache, lightheadedness, dizziness, chest pain, palpitations, shortness of breath, cough or congestion, episodes of vomiting, or any other complaints at this time. Patient reports he has urinated and postoperative period. Review of systems: Pertinent positives and negatives as discussed in HPI, a complete review of systems was performed and all other systems are negative. Physical exam: Vital signs reviewed and stable. General: Nontoxic, no distress and appears stated age. Derm: Skin warm and dry, normal coloration for ethnicity. Head: Atraumatic, normocephalic and symmetric. Eyes: EOMs intact, no lid lag, and anicteric sclera Mouth: no lip lesions, mucus membranes moist Cardiovascular: regular rate and rhythm with normal S1S2, no murmur, positive posterior tibial pulses bilaterally, and cap refill < 2 seconds. Lungs: Respirations even, regular, and unlabored on room air. Lungs CTA bilaterally, no rhonchi, no rales, no wheezing, and no accessory muscle usage. Abdominal: soft, diffuse tenderness, no guarding, no appreciable organomegaly. Laparoscopic incisions well-approximated, no drainage, erythema or bleeding noted. Ext: ROM intact. No gross muscle atrophy, no edema, no contractures Neuro: Speech clear, face symmetrical and CN II-XII grossly intact with no noted focal neuro deficits Psych: Alert and oriented to person, place, time, and situation. Appropriate and pleasant affect. Assessment and Plan of Care: Status post laparoscopic cholecystectomy Chronic cholecystitis -Management per primary admitting general surgery team including DVT prophylaxis, pain management, wound/dressing management, advancement of diet. -Order placed for postoperative labs including CBC, CMP, and magnesium for tomorrow morning. Will follow-up on these results and place additional orders if indicated based upon these findings. -Encourage ambulation and use of incentive spirometry. Paroxysmal A-fib on Eliquis CAD Hypertension Hyperlipidemia MTHFR gene mutation Chronic left lower extremity edema Continue daily medication regimen with aspirin 81 mg daily, Aldactone 50 mg daily, valsartan 320 mg daily, Neurontin 400 mg 3 times daily, hydrochlorothiazide 25 mg daily, and metoprolol 25 mg twice daily. Recommend resuming Eliquis once cleared by general surgery team to resume. Telemetry monitoring Data and imaging reviewed: Reviewed operative report Vital signs reviewed. Blood pressure 130/87, heart rate 94, respiratory rate 16, temp 98.1 F, and SpO2 of 94% on room air. Preoperative labs completed and reviewed. CBC showing WBC count of 8.61, hemoglobin 12.6, and platelet count of 329,000. Thank you for allowing us to participate in the care of this pleasant patient. Do not hesitate to contact us with questions. Someone can be reached from the [facility] hospitalist group all hours of the day at [phone] or via MyStream. Patient was seen independently by Nurse Practitioner. This document was prepared using [employer] dictation software. Please allow for errors in wall scraper while rare they do occur. I reviewed the documentation as provided by the СЕРГЕЙ above, who is the original author of this note. I agree with the documented assessment and plan, with the following changes: none Past Medical History Past Medical History: Atrial Fibrillation, Asthma, Blood Disorder, Deep Vein Thrombosis (DVT), GERD/Reflux, Hearing Disorder / Deafness, Hypertension, Myocardial Infarction ([place]), Sleep Apnea/CPAP/BIPAP Additional Past Medical History / Comment(s): bleeding with and without stools from the rectal area,DVT X 3- LAST TIME 2013- LT LEG, LUMBAR DDD- . HAS HX MTHFR GENE MUTATION-POSITIVE FOR HETEROZYGOUS PER DR. FRANCISCO'S OFFICE, doen not use CPAP, chronic swelling left lower leg Last Myocardial Infarction Date:: 09/2021 History of Any Multi-Drug Resistant Organisms: None Reported Past Surgical History: Bariatric Surgery, Cardiac Ablation, Heart Catheterization, Joint Replacement Additional Past Surgical History / Comment(s): LEFT KNEE REPLACEMENT, LT INDEX JOINT REPLACEMENT, PAIN CLINIC PROCEDURES, COLONOSCOPY, EGD. Gastric bypass 07-06-23 Past Anesthesia/Blood Transfusion Reactions: Previous Problems w/ Anesthesia, Family History of Problems w/ Anesthesia, Motion Sickness Additional Past Anesthesia/Blood Transfusion Reaction / Comm: HARD TO PUT TO SLEEP-(pt and father)-needs more than normal. no hx blood transfusion Past Psychological History: Depression Smoking Status: Never smoker Past Alcohol Use History: Occasional Additional Past Alcohol Use History / Comment(s): . Past Drug Use History: None Reported Additional Drug Use History / Comment(s): . - Past Family History Sister(s) Family Medical History: Cancer Additional Family Medical History / Comment(s): Skin cancer. Mother History Unknown: Yes Medications and Allergies Home Medications Medication Instructions Recorded Confirmed Type Omeprazole 40 mg PO QAM 07/10/23 06/03/24 History Cyclobenzaprine HCl 10 mg PO TID PRN 11/18/23 06/03/24 History Ergocalciferol [Vitamin D2 (1250 1,250 mcg PO TU 11/18/23 06/03/24 History Mcg = 54402 Iu)] Gabapentin [Neurontin] 400 mg PO TID 11/18/23 06/03/24 History Metoprolol Tartrate [Lopressor] 25 mg PO BID 11/18/23 06/03/24 History Spironolactone 50 mg PO DAILY 11/18/23 06/03/24 History Valsartan 160 mg PO QAM 11/18/23 06/03/24 History hydroCHLOROthiazide 25 mg PO DAILY 11/18/23 06/03/24 History Ferrous Sulfate [Iron (65 MG 325 mg PO DAILY 11/30/23 06/03/24 History Elemental)] HYDROcodone/APAP 10-325MG [[place] 1 tab PO QID PRN 11/30/23 06/03/24 History 10-325] Magnesium Oxide [Magnesium] 1,000 mg PO DAILY 11/30/23 06/03/24 History EPINEPHrine (Auto Inject) [Epipen] 0.3 mg IM ONCE PRN 01/16/24 06/03/24 History clonazePAM [KlonoPIN] 1 mg PO BID PRN 01/16/24 06/03/24 History Aspirin 81 mg PO DAILY 30 Days #30 tab 02/10/24 06/03/24 Rx Acetaminophen Tab [Tylenol Tab] 1,000 mg PO Q6HR PRN #30 tablet 06/03/24 Rx Apixaban [Eliquis] 5 mg PO BID 06/03/24 06/03/24 History Pramox/Mineral Oil/Znox Oint 1 applic RECTAL BID #28 gm 06/03/24 Rx [Tucks Hemorrhoidal Oint] Simethicone [Gas-X] 125 mg PO AC-TID PRN #20 capsule 06/03/24 Rx witch Gregg [Tucks Medicated Pads] 1 pad TOPICAL BID #30 pad 06/03/24 Rx Allergies Allergy/AdvReac Type Severity Reaction Status Date / Time No Known Allergies Allergy Verified 06/03/24 06:53 Physical Exam Vitals: Vital Signs Temp Pulse Resp BP Pulse Ox 06/03/24 15:00 94 137/87 95 06/03/24 14:01 95 142/88 98 06/03/24 13:31 98.1 F 92 16 142/86 95 06/03/24 13:00 98.1 F 92 16 144/88 98 06/03/24 12:13 89 16 116/71 98 06/03/24 11:27 82 18 132/75 98 06/03/24 11:12 87 18 116/67 95 06/03/24 11:05 81 16 133/64 93 L 06/03/24 10:49 88 16 125/57 93 L 06/03/24 10:34 89 16 135/64 94 L 06/03/24 10:19 85 16 172/75 98 06/03/24 10:04 88 16 173/77 99 06/03/24 09:51 82 16 172/73 98 06/03/24 09:36 86 16 171/90 99 06/03/24 09:21 84 16 161/92 99 06/03/24 09:06 99.3 F 97 14 178/74 100 06/03/24 07:00 97.5 F L 91 16 139/86 98 Intake and Output 06/03/24 06/03/24 06/03/24 06:59 14:59 22:59 Intake Total 1750 Output Total 10 Balance 1740 Intake: IV 1750 Output: Estimated Blood Loss 10 Other: # Voids 1 Weight 148 kg Results CBC & Chem 7: 06/04/24 06:45 06/04/24 06:45
[2024-06-03] MEDS: GABAPENTIN 400 MG CAP PO SCH (16:33)
[2024-06-03] MEDS: KETOROLAC 15 MG/ML 1 ML VIAL IVP SCH (17:58)
[2024-06-03] MEDS: METOPROLOL TARTRATE 25 MG TAB PO SCH (20:00)
[2024-06-03] MEDS: HYDROcodone/APAP 10-325MG 1 EACH TAB PO PRN (21:49)
[2024-06-03] MEDS: clonazePAM 1 MG TAB PO PRN (23:13)
[2024-06-04] MEDS: SPIRONOLACTONE 25 MG TAB PO SCH (09:11)
[2024-06-04] MEDS: MAGNESIUM OXIDE 400 MG TAB PO SCH (09:11)
[2024-06-04] MEDS: hydroCHLOROthiazide 25 MG TAB PO SCH (09:11)
[2024-06-04] MEDS: VALSARTAN 160 MG TAB PO SCH (09:12)
[2024-06-04] MEDS: PANTOPRAZOLE 40 MG TABLET PO SCH (09:12)
[2024-06-04] MEDS: FERROUS SULFATE 325 MG TAB PO SCH (09:12)
[2024-06-04] MEDS: ASPIRIN 81 MG PO SCH (09:12)
[2024-06-04 10:26] LABS: HCT 35.6 % (39.6-50.0); HGB 11.5 g/dL (13.0-17.0); MCH 26.9 pg (27.0-32.0); MCHC 32.3 g/dL (32.0-37.0); MCV 83.2 FL (80.0-97.0); NRBC Per 100 WBC 0 X 10*3/uL (0.00-0.01); Platelet Count 278 X 10*3/uL (140-440); RBC 4.28 X 10*6/uL (4.40-5.60); RDW 13.3 % (11.5-14.5); WBC 10.88 X 10*3/uL (4.50-10.00)
[2024-06-04 10:44] LABS: ALT 14 U/L (10-49); AST 20 U/L (14-35); Albumin 3.5 g/dL (3.8-4.9); Albumin/Globulin Ratio 2.06 Ratio (1.60-3.17); Alkaline Phosphatase 68 U/L (41-126); Blood Urea Nitrogen 12.8 mg/dL (9.0-27.0); Calcium 8.8 mg/dL (8.7-10.3); Carbon Dioxide 26.4 mmol/L (21.6-31.8); Chloride 101 mmol/L (96-109); Globulin 1.7 g/dL (1.6-3.3); Glucose 106 mg/dL (70-110); Potassium 4.3 mmol/L (3.5-5.5); Sodium 138 mmol/L (135-145); Total Bilirubin 0.3 mg/dL (0.3-1.2); Total Protein 5.2 g/dL (6.2-8.2)
--- NOTE | 2024-06-04 11:06 | P.PN ---
Subjective Progress Note Date: 06/04/24 Principal diagnosis: I reviewed the documentation as provided by the СЕРГЕЙ above, who is the original author of this note. I agree with the documented assessment and plan, with the following changes: none Hospital course: Patient is a very pleasant 44-year-old male with a past medical history of CAD, atrial fibrillation status postcardiac ablation on anticoagulation with Eliquis (stopped taking 3 days ago for planned surgical procedure), hypertension, hyperlipidemia, GERD, MTHFR gene mutation, TIA, chronic swelling left lower extremity, and gastric bypass 07/06/2023. He is currently admitted under general surgery team status post laparoscopic cholecystectomy secondary to chronic cholecystitis completed by Dr. Sun on 06/03/2024.. Physical exam: Patient was seen and fully evaluated at the bedside this morning. He reports moderate postoperative discomfort but denies any further episodes of postoperative nausea or vomiting. Patient tolerated oral intake with regular diet and ate most of his breakfast. He is urinating without any difficulties. Patient denies having any other pain or complaints. Vital signs reviewed and stable. General: Nontoxic, no distress and appears stated age. Derm: Skin warm and dry, normal coloration for ethnicity. Head: Atraumatic, normocephalic and symmetric. Eyes: EOMs intact, no lid lag, and anicteric sclera Mouth: no lip lesions, mucus membranes moist Cardiovascular: regular rate and rhythm with normal S1S2, no murmur, positive posterior tibial pulses bilaterally, and cap refill < 2 seconds. Lungs: Respirations even, regular, and unlabored on room air. Lungs CTA bilaterally, no rhonchi, no rales, no wheezing, and no accessory muscle usage. Abdominal: soft, diffuse tenderness, no guarding, no appreciable organomegaly. Laparoscopic incisions well-approximated, no drainage, erythema or bleeding no vivian. Ext: ROM intact. No gross muscle atrophy, no edema, no contractures Neuro: Speech clear, face symmetrical and CN II-XII grossly intact with no noted focal neuro deficits Psych: Alert and oriented to person, place, time, and situation. Appropriate and pleasant affect. Assessment and Plan of Care: Status post laparoscopic cholecystectomy Chronic cholecystitis -Management per primary admitting general surgery team including DVT prophylaxis, pain management, wound/dressing management, advancement of diet. -Order placed for postoperative labs including CBC, CMP, and magnesium for tomorrow morning. Will follow-up on these results and place additional orders if indicated based upon these findings. -Encourage ambulation and use of incentive spirometry. Postoperative nausea, resolved -Continue Zofran 4 mg IVP every 6 hours as needed. Acute postoperative blood loss anemia Stable and expected finding. Preoperative hemoglobin of 12.6 with p ostoperative hemoglobin of 11.5. No need for transfusion, repeat labs, or further intervention at this time. Paroxysmal A-fib on Eliquis CAD Hypertension Hyperlipidemia MTHFR gene mutation Chronic left lower extremity edema Continue daily medication regimen with aspirin 81 mg daily, Aldactone 50 mg daily, valsartan 320 mg daily, Neurontin 400 mg 3 times daily, hydrochlorothiazide 25 mg daily, and metoprolol 25 mg twice daily. Recommend resuming Eliquis once cleared by general surgery team to resume. Telemetry monitoring Data and imaging reviewed: Vital signs reviewed. Blood pressure 118/71, heart rate 86, respiratory rate 14, temp 97.8 F, and SpO2 of 98% on room air. Postoperative labs reviewed. CBC showing mild leukocytosis with WBC count of 10.88 and acute postoperative blood loss anemia with hemoglobin of 11.5 and stable. BMP unremarkable. Liver profile unremarkable with the exception of slightly low albumin of 3.5. Magnesium normal findings at 2.0. Patient is medically optimized for discharge and cleared once discharged by primary admitting general surgery team. Patient to resume Eliquis once cleared by general surgery team to resume anticoagulant. Thank you for allowing us to participate in the care of this pleasant patient. Do not hesitate to contact us with questions. Someone can be reached from the [facility] hospitalist group all hours of the day at [phone] or via perfect serve. Patient was seen independently by Nurse Practitioner. This document was prepared using [employer] dictation software. Please allow for errors in conduit reamer operator while rare they do occur. Objective - Vital Signs Vital signs: Vital Signs Temp 97.8 F 06/04/24 07:00 Pulse 86 06/04/24 07:00 Resp 14 06/04/24 07:00 BP 118/71 06/04/24 07:00 Pulse Ox 98 06/04/24 07:00 FiO2 Intake & Output 06/03/24 06/04/24 06/04/24 18:59 06:59 18:59 Intake Total 1868 Output Total 10 Balance 1858 Weight 148 kg Intake: IV 1750 Oral 118 Output: Estimated Blood Loss 10 Other: # Voids 2 3 - Labs CBC & Chem 7: 06/04/24 06:45 06/04/24 06:45
[2024-06-04 15:21] VITALS: BP 114/73; PULSE 70; RESP 15; TEMP 98.2
== END 2024-06-04 20:22 | disposition home or self-care (01) ==
LOC: OR 06:10 → 6NMEDSUR 09:11 → OR 06-04 20:22
PROVIDERS: ATTEND Surgery Plastic and Reconstructive Surgery
DX: K81.1 Chronic cholecystitis (principal); K82.1 Hydrops of gallbladder; J45.909 Unspecified asthma, uncomplicated; K21.9 Gastro-esophageal reflux disease without esophagitis; K64.4 Residual hemorrhoidal skin tags; K64.8 Other hemorrhoids; I25.2 Old myocardial infarction; I25.10 Atherosclerotic heart disease of native coronary artery without angina pectoris; I48.0 Paroxysmal atrial fibrillation; I11.9 Hypertensive heart disease without heart failure; F32.A Depression, unspecified; E66.01 Morbid (severe) obesity due to excess calories; G47.30 Sleep apnea, unspecified; E55.9 Vitamin D deficiency, unspecified; E78.1 Pure hyperglyceridemia; E72.12 Methylenetetrahydrofolate reductase deficiency; D62 Acute posthemorrhagic anemia; Z68.41 Body mass index [BMI] 40.0-44.9, adult; Z79.01 Long term (current) use of anticoagulants; Z79.82 Long term (current) use of aspirin; Z79.899 Other long term (current) drug therapy; Z86.718 Personal history of other venous thrombosis and embolism; Z98.84 Bariatric surgery status; Z86.73 Personal history of transient ischemic attack (TIA), and cerebral infarction without residual deficits; Z90.49 Acquired absence of other specified parts of digestive tract
CPT/HCPCS: 47562; S2900; 80053; 83735; 85027; 88304

== ENCOUNTER 2024-06-06 18:14 | Emergency (ER) | payer OTHER ==
[2024-06-06 19:21] LABS: Basophils % (A) 0 %; Eosinophils # (A) 0.3 k/uL (0-0.7); Eosinophils % (A) 3 %; HCT 39.9 % (39.0-53.0); HGB 12.9 gm/dL (13.0-17.5); Hypochromasia Moderate; Lymphocytes # (A) 1.1 k/uL (1.0-4.8); Lymphocytes % (A) 12 %; MCH 26.9 pg (25.0-35.0); MCHC 32.2 g/dL (31.0-37.0); MCV 83.4 fL (80.0-100.0); Mean Platelet Volume 6.8; Monocytes # (A) 0.3 k/uL (0-1.0); Monocytes % (A) 4 %; Neutrophils # (A) 7.5 k/uL (1.3-7.7); Neutrophils % (A) 80 %; Platelet Count 292 k/uL (150-450); RBC 4.79 m/uL (4.30-5.90); RDW 13.7 % (11.5-15.5); WBC 9.4 k/uL (3.8-10.6)
[2024-06-06 19:32] LABS: ALT 15 U/L (4-49); AST 21 U/L (17-59); African American GFR (CKD) >90 (>60 ml/min/1.73 sqM); Albumin 3.8 g/dL (3.5-5.0); Alkaline Phosphatase 69 U/L (38-126); Amylase 35 U/L (30-110); Anion Gap 7 mmol/L; Blood Urea Nitrogen 11 mg/dL (9-20); Calcium 9.2 mg/dL (8.4-10.2); Carbon Dioxide 27 mmol/L (22-30); Chloride 102 mmol/L (98-107); Glucose 84 mg/dL (74-99); Lipase 37 U/L (23-300); Non-African American GFR(CKD) >90 (>60 ml/min/1.73 sqM); Potassium 4.1 mmol/L (3.5-5.1); Sodium 136 mmol/L (137-145); Total Bilirubin 0.6 mg/dL (0.2-1.3)
[2024-06-06 19:33] LABS: Partial Thromboplastin Time 26.5 sec (22.0-30.0); Prothrombin Time 10.7 sec (10.0-12.5)
--- NOTE | 2024-06-06 20:03 | XR ---
EXAMINATION TYPE: XR chest 2V DATE OF EXAM: 06/06/2024 7:33 PM CLINICAL INDICATION:Male, 44 years old with history of Chest Pain; COMPARISON: 01/16/2024 TECHNIQUE: XR chest 2V Frontal view of the chest. FINDINGS: Lungs/Pleura: There is no evidence of pleural effusion, focal consolidation, or pneumothorax. Pulmonary vascularity: Unremarkable. Heart/mediastinum: Cardiomediastinal silhouette is unremarkable. Musculoskeletal: No acute osseous pathology. Other findings: None IMPRESSION: No acute cardiopulmonary disease/process.
[2024-06-06 21:18] VITALS: RESP 17; TEMP 98.4
[2024-06-06 21:42] LABS: Appearance,Urine Clear (Clear); Bilirubin,Urine Negative (Negative); Blood,Urine Negative (Negative); Color,Urine Yellow; Glucose,Urine (UA) Negative (Negative); Ketones,Urine Negative (Negative); Leukocyte Esterase,Urine Negative (Negative); Nitrite,Urine Negative (Negative); Protein,Urine Trace (Negative); Specific Gravity,Urine 1.026 (1.001-1.035); Urobilinogen,Urine <2.0 mg/dL (<2.0)
--- NOTE | 2024-06-06 22:28 | ED ---
General Adult HPI - General Chief complaint: Chest Pain Stated complaint: Post-op abd pain,vomiting Time Seen by Provider: 06/06/24 22:16 Source: patient Mode of arrival: ambulatory Limitations: no limitations - History of Present Illness Initial comments: This patient is a 44-year-old man who is postoperative day 3 following laparoscopic cholecystectomy by Dr. Sun, and presents to have evaluation of epigastric pain, nausea vomiting, and seeing that his Apple Watch was telling him he was in atrial fibrillation. The patient states that the symptoms have subsided a little bit from when they were at their worst. He has not noted fever or chills. No diaphoresis or dyspnea associated. -: hour(s) Location: chest, abdomen Radiation: non-radiation Quality: dull Consistency: now resolved Improves with: none Worsens with: none Associated Symptoms: nausea/vomiting Treatments Prior to Arrival: none - Related Data Home Medications Medication Instructions Recorded Confirmed Omeprazole 40 mg PO DAILY 07/10/23 06/12/24 Cyclobenzaprine HCl 10 mg PO TID PRN 11/18/23 06/12/24 Gabapentin [Neurontin] 400 mg PO TID 11/18/23 06/12/24 Valsartan 320 mg PO DAILY 11/18/23 06/12/24 Ferrous Sulfate [Iron (65 MG 325 mg PO BID 11/30/23 06/12/24 Elemental)] HYDROcodone/APAP 10-325MG [[place] 1 tab PO QID PRN 11/30/23 06/12/24 10-325] EPINEPHrine (Auto Inject) [Epipen] 0.3 mg IM ONCE PRN 01/16/24 06/12/24 clonazePAM [KlonoPIN] 1 mg PO TID 01/16/24 06/12/24 Apixaban [Eliquis] 5 mg PO BID 06/03/24 06/12/24 Albuterol Inhaler [Ventolin Hfa 2 puff INHALATION RT-Q6H PRN 06/08/24 06/12/24 Inhaler] Atorvastatin [Lipitor] 40 mg PO HS 06/08/24 06/12/24 Famotidine [Pepcid] 20 mg PO DAILY 06/08/24 06/12/24 Lactulose [Constulose] 30 gm PO BID 06/08/24 06/12/24 Loratadine 10 mg PO DAILY 06/08/24 06/12/24 Metoprolol Tartrate [Lopressor] 25 mg PO BID 06/08/24 06/12/24 Previous Rx's Medication Instructions Recorded Aspirin 81 mg PO DAILY 30 Days #30 tab 02/10/24 Acetaminophen Tab [Tylenol Tab] 1,000 mg PO Q6HR PRN #30 tablet 06/03/24 oxyCODONE HCL/ACETAMINOPHEN 1 tab PO Q6HR PRN 5 Days #20 tab 06/11/24 [Percocet 10-325 mg] Allergies Allergy/AdvReac Type Severity Reaction Status Date / Time No Known Allergies Allergy Verified 06/12/24 18:58 Review of Systems ROS Statement: Those systems with pertinent positive or pertinent negative responses have been documented in the HPI. ROS Other: All systems not noted in ROS Statement are negative. Constitutional: Denies: fever, chills, weakness Respiratory: Denies: cough, dyspnea Cardiovascular: Reports: chest pain, palpitations. Denies: orthopnea, edema, syncope Gastrointestinal: Reports: abdominal pain, nausea, vomiting. Denies: diarrhea, hematemesis, melena, hematochezia Genitourinary: Denies: dysuria, hematuria Musculoskeletal: Denies: back pain Skin: Denies: rash Neurological: Denies: headache, weakness, numbness Past Medical History Past Medical History: Atrial Fibrillation, Asthma, Blood Disorder, Deep Vein Thrombosis (DVT), GERD/Reflux, Hearing Disorder / Deafness, Hypertension, Myocardial Infarction ([place]), Sleep Apnea/CPAP/BIPAP Additional Past Medical History / Comment(s): bleeding with and without stools from the rectal area,DVT X 3- LAST TIME 2012- LT LEG, LUMBAR DDD- . HAS HX MTHFR GENE MUTATION-POSITIVE FOR HETEROZYGOUS PER DR. FRANCISCO'S OFFICE, doen not use CPAP, chronic swelling left lower leg Last Myocardial Infarction Date:: 09/2021 History of Any Multi-Drug Resistant Organisms: None Reported Past Surgical History: Bariatric Surgery, Cardiac Ablation, Cholecystectomy, Heart Catheterization, Joint Replacement Additional Past Surgical History / Comment(s): LEFT KNEE REPLACEMENT, LT INDEX JOINT REPLACEMENT, PAIN CLINIC PROCEDURES, COLONOSCOPY, EGD. Gastric bypass 07-06-23 Past Anesthesia/Blood Transfusion Reactions: Previous Problems w/ Anesthesia, Family History of Problems w/ Anesthesia, Motion Sickness Additional Past Anesthesia/Blood Transfusion Reaction / Comment(s): HARD TO PUT TO SLEEP-(pt and father)-needs more than normal. no hx blood transfusion Past Psychological History: Depression Smoking Status: Never smoker Past Alcohol Use History: Occasional Past Drug Use History: None Reported - Past Family History Sister(s) Family Medical History: Cancer Additional Family Medical History / Comment(s): Skin cancer. Mother History Unknown: Yes General Exam Limitations: no limitations General appearance: alert, in no apparent distress Head exam: Present: atraumatic, normocephalic Eye exam: Present: normal appearance. Absent: scleral icterus, conjunctival injection ENT exam: Present: normal oropharynx Neck exam: Present: normal inspection Respiratory exam: Present: normal lung sounds bilaterally. Absent: respiratory distress, wheezes, rales, rhonchi, stridor, accessory muscle use Cardiovascular Exam: Present: regular rate, normal rhythm, normal heart sounds. Absent: systolic murmur, diastolic murmur, rubs, gallop GI/Abdominal exam: Present: soft, tenderness (There is some mild miah-incisional tenderness. No rebound or guarding), normal bowel sounds, other (The patient's surgical incisions are clean dry and intact without any abnormal erythema or warmth.). Absent: distended, guarding, rebound, rigid, mass, pulsatile mass, hernia Extremities exam: Present: normal inspection, normal capillary refill. Absent: pedal edema, calf tenderness Back exam: Present: normal inspection. Absent: CVA tenderness (R), CVA tenderness (L) Neurological exam: Present: alert Skin exam: Present: warm, dry, intact, normal color. Absent: rash Course Vital Signs 06/06/24 06/06/24 06/07/24 18:25 21:12 00:06 Temperature 97.3 F L 98.4 F Pulse Rate 94 97 96 Respiratory 20 17 17 Rate Blood Pressure 132/69 153/96 152/97 O2 Sat by Pulse 92 L 100 99 Oximetry EKG Findings - EKG Results: EKG: interpreted by ERMD, sinus rhythm (With PVC, rate 91 bpm), normal axis, normal QRS, normal ST/T Medical Decision Making - Medical Decision Making Patient had chest x-ray that interpreted as negative for acute infiltrate, pneumothorax, congestive heart failure Was pt. sent in by a medical professional or institution (, PA, MUSIC BOX MECHANIC, urgent care, hospital, or snf...) When possible be specific @ -[No] Did you speak to anyone other than the patient for history (EMS, parent, family, police, friend...)? What history was obtained from this source @ -[No] Did you review nursing and triage notes (agree or disagree)? Why? @ -[I reviewed and agree with nursing and triage notes] Were old charts reviewed (outside hosp., previous admission, EMS record, old EKG, old radiological studies, urgent care reports/EKG's, snf records)? Report findings @ -[No old charts were reviewed] Differential Diagnosis (chest pain, altered mental status, abdominal pain women, abdominal pain men, vaginal bleeding, weakness, fever, dyspnea, syncope, headache, dizziness, GI bleed, back pain, seizure, CVA, palpatations, mental health, musculoskeletal)? @ -[Differential Chest Pain: Stable Angina, Unstable Angina, STEMI, NSTEMI Aortic Dissection, Pneumothorax, Musculoskeletal, Esophageal Spasm GERD, Cholecystitis, Pancreatitis, Zoster, this is not meant to be an all-inclusive list. EKG interpreted by me (3pts min.). @ -[I interpreted as above X-rays interpreted by me (1pt min.). @ -I interpreted as above CT interpreted by me (1pt min.). @ -[None done] U/S interpreted by me (1pt. min.). @ -[None done] What testing was considered but not performed or refused? (CT, X-rays, U/S, labs)? Why? @ -[A CT scan of the abdomen was considered but the patient has had resolution of symptoms, feels well and will have close follow-up. Will return for this s tudy should symptoms recur What meds were considered but not given or refused? Why? @ -[None] Did you discuss the management of the patient with other professionals (professionals i.e. , PA, MUSIC BOX MECHANIC, lab, RT, psych nurse, health and social care teacher, campaign advisor, teacher, chief nursing officer, insurance case manager)? Give summary @ -[No] Was smoking cessation discussed for >3mins.? @ -[No] Was critical care preformed (if so, how long)? @ -[No] Were there social determinants of health that impacted care today? How? (Homelessness, low income, unemployed, alcoholism, drug addiction, transportation, low edu. Level, literacy, decrease access to med. care, fdc, rehab)? @ -[No] Was there de-escalation of care discussed even if they declined (Discuss DNR or withdrawal of care, Hospice)? DNR status @ -[No] What co-morbidities impacted this encounter? (DM, HTN, Smoking, COPD, CAD, Cancer, CVA, ARF, Chemo, Hep., AIDS, mental health diagnosis, sleep apnea, morbid obesity)? @ -[None] Was patient admitted / discharged? Hospital course, mention meds given and route, prescriptions, significant lab abnormalities, going to OR and other pertinent info. @ -[Patient is 44-year-old man postop day 3 following cholecystectomy. His symptoms have improved. His exam is unremarkable. There does not appear to be any postsurgical complication at this point. The patient stable to see Dr. Sun as outpatient and he will call to set up appointment in the morning. Discussed return parameters Undiagnosed new problem with uncertain prognosis? @ -[No] Drug Therapy requiring intensive monitoring for toxicity (Heparin, Nitro, In sulin, Cardizem)? @ -[No] Were any procedures done? @ -[No] Diagnosis/symptom? @ -[Postoperative pain, acute Acute, or Chronic, or Acute on Chronic? @ -[Acute Uncomplicated (without systemic symptoms) or Complicated (systemic symptoms)? @ -[Uncomplicated Side effects of treatment? @ -[No] Exacerbation, Progression, or Severe Exacerbation? @ -[No] Poses a threat to life or bodily function? How? (Chest pain, [place], [place], pneumonia, PE, COPD, DKA, ARF, appy, cholecystitis, CVA, Diverticulitis, Homicidal, Suicidal, threat to staff... and all critical care pts) @ -[No] - Lab Data Result diagrams: 06/06/24 19:08 06/06/24 19:08 Lab Results 06/06/24 06/06/24 06/06/24 Range/Units 19:08 19:08 19:08 WBC 9.4 (3.8-10.6) k/uL RBC 4.79 (4.30-5.90) m/uL Hgb 12.9 L (13.0-17.5) gm/dL Hct 39.9 (39.0-53.0) % MCV 83.4 (80.0-100.0) fL MCH 26.9 (25.0-35.0) pg MCHC 32.2 (31.0-37.0) g/dL RDW 13.7 (11.5-15.5) % Plt Count 292 (150-450) k/uL MPV 6.8 Neutrophils % 80 % Lymphocytes % 12 % Monocytes % 4 % Eosinophils % 3 % Basophils % 0 % Neutrophils # 7.5 (1.3-7.7) k/uL Lymphocytes # 1.1 (1.0-4.8) k/uL Monocytes # 0.3 (0-1.0) k/uL Eosinophils # 0.3 (0-0.7) k/uL Basophils # 0.0 (0-0.2) k/uL Hypochromasia Moderate ESR 47 H (0-15) mm/Hr PT 10.7 (10.0-12.5) sec INR 1.0 (<1.2) APTT 26.5 (22.0-30.0) sec Sodium 136 L (137-145) mmol/L Potassium 4.1 (3.5-5.1) mmol/L Chloride 102 (98-107) mmol/L Carbon Dioxide 27 (22-30) mmol/L Anion Gap 7 mmol/L BUN 11 (9-20) mg/dL Creatinine 0.83 (0.66-1.25) mg/dL Est GFR (CKD-EPI)AfAm >90 (>60 ml/min/1.73 sqM) Est GFR (CKD-EPI)NonAf >90 (>60 ml/min/1.73 sqM) Glucose 84 (74-99) mg/dL Plasma Lactic Acid [place] (0.7-2.0) mmol/L Calcium 9.2 (8.4-10.2) mg/dL Magnesium 2.0 (1.6-2.3) mg/dL Total Bilirubin 0.6 (0.2-1.3) mg/dL AST 21 (17-59) U/L ALT 15 (4-49) U/L Alkaline Phosphatase 69 (38-126) U/L Troponin I (0.000-0.034) ng/mL Total Protein 6.0 L (6.3-8.2) g/dL Albumin 3.8 (3.5-5.0) g/dL Amylase 35 (30-110) U/L Lipase 37 (23-300) U/L Urine Color Urine Appearance (Clear) Urine pH (5.0-8.0) Ur Specific [place] (1.001-1.035) Urine Protein (Negative) Urine Glucose (UA) (Negative) Urine Ketones (Negative) Urine Blood (Negative) Urine Nitrite (Negative) Urine Bilirubin (Negative) Urine Urobilinogen (<2.0) mg/dL Ur Leukocyte Esterase (Negative) 06/06/24 06/06/24 06/06/24 Range/Units 19:08 19:08 21:18 WBC (3.8-10.6) k/uL RBC (4.30-5.90) m/uL Hgb (13.0-17.5) gm/dL Hct (39.0-53.0) % MCV (80.0-100.0) fL MCH (25.0-35.0) pg MCHC (31.0-37.0) g/dL RDW (11.5-15.5) % Plt Count (150-450) k/uL MPV Neutrophils % % Lymphocytes % % Monocytes % % Eosinophils % % Basophils % % Neutrophils # (1.3-7.7) k/uL Lymphocytes # (1.0-4.8) k/uL Monocytes # (0-1.0) k/uL Eosinophils # (0-0.7) k/uL Basophils # (0-0.2) k/uL Hypochromasia ESR (0-15) mm/Hr PT (10.0-12.5) sec INR (<1.2) APTT (22.0-30.0) sec Sodium (137-145) mmol/L Potassium (3.5-5.1) mmol/L Chloride (98-107) mmol/L Carbon Dioxide (22-30) mmol/L Anion Gap mmol/L BUN (9-20) mg/dL Creatinine (0.66-1.25) mg/dL Est GFR (CKD-EPI)AfAm (>60 ml/min/1.73 sqM) Est GFR (CKD-EPI)NonAf (>60 ml/min/1.73 sqM) Glucose (74-99) mg/dL Plasma Lactic Acid [place] 2.0 (0.7-2.0) mmol/L Calcium (8.4-10.2) mg/dL Magnesium (1.6-2.3) mg/dL Total Bilirubin (0.2-1.3) mg/dL AST (17-59) U/L ALT (4-49) U/L Alkaline Phosphatase (38-126) U/L Troponin I <0.012 (0.000-0.034) ng/mL Total Protein (6.3-8.2) g/dL Albumin (3.5-5.0) g/dL Amylase (30-110) U/L Lipase (23-300) U/L Urine Color Yellow Urine Appearance Clear (Clear) Urine pH 8.0 (5.0-8.0) Ur Specific [place] 1.026 (1.001-1.035) Urine Protein Trace H (Negative) Urine Glucose (UA) Negative (Negative) Urine Ketones Negative (Negative) Urine Blood Negative (Negative) Urine Nitrite Negative (Negative) Urine Bilirubin Negative (Negative) Urine Urobilinogen <2.0 (<2.0) mg/dL Ur Leukocyte Esterase Negative (Negative) Disposition Clinical Impression: Abdominal pain Disposition: HOME SELF-CARE Condition: Good Instructions (If sedation given, give patient instructions): Abdominal Pain (ED) Is patient prescribed a controlled substance at d/c from ED?: No Referrals: Aden Diaz MD [Primary Care Provider] - 1-2 days Lo Sun MD [STAFF PHYSICIAN] - 1-2 days
[2024-06-06] MEDS: SODIUM CHLORIDE 0.9% 1,000 ML IV STA (22:48)
[2024-06-06] MEDS: SODIUM CHLORIDE 0.9% 1,000 ML IV ONE (22:48)
[2024-06-06] MEDS: HYDROmorphone 0.5 MG/0.5 ML SYRINGE IVP STA (22:54)
[2024-06-06] MEDS: ONDANSETRON 4 MG/2 ML VIAL IVP STA (22:55)
[2024-06-07 00:08] VITALS: BP 152/97; PULSE 96
[2024-06-07] MEDS: HYDROmorphone 0.5 MG/0.5 ML SYRINGE IVP STA (00:08)
[2024-06-07 02:40] LABS: Erythrocyte Sedimentation Rate 47 mm/Hr (0-15)
== END 2024-06-07 00:41 | disposition home or self-care (01) ==
LOC: EC 18:14
DX: R10.13 Epigastric pain (principal); I48.91 Unspecified atrial fibrillation; Z90.49 Acquired absence of other specified parts of digestive tract
CPT/HCPCS: 36415; 93005; 80053; 85652; 82150; 83605; 83690; 83735; 84484; 85025; 85610; 85730; 81003; 71046; 99285; 96374; 96375; 96361 ×2; 96376; J2405; J1170 ×2; 25605

== ENCOUNTER 2024-06-08 16:10 | Inpatient (IN) | payer OTHER ==
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
[2024-06-08] MEDS: PANTOPRAZOLE 40 MG/10 ML VIAL IVP STA (17:18)
[2024-06-08] MEDS: HYDROmorphone 1 MG/ML 1 ML SYRINGE IVP STA ×2 (17:19→18:52)
[2024-06-08] MEDS: SODIUM CHLORIDE 0.9% 1,000 ML IV STA (17:20)
[2024-06-08 17:38] LABS: Basophils % (A) 0 %; Eosinophils # (A) 0.4 k/uL (0-0.7); Eosinophils % (A) 4 %; HGB 12.3 gm/dL (13.0-17.5); Hypochromasia Moderate; Lymphocytes # (A) 1.6 k/uL (1.0-4.8); Lymphocytes % (A) 18 %; MCH 26.4 pg (25.0-35.0); MCHC 31.7 g/dL (31.0-37.0); MCV 83.5 fL (80.0-100.0); Mean Platelet Volume 6.9; Monocytes # (A) 0.5 k/uL (0-1.0); Monocytes % (A) 6 %; Neutrophils # (A) 6.2 k/uL (1.3-7.7); Neutrophils % (A) 70 %; Platelet Count 308 k/uL (150-450); RBC 4.67 m/uL (4.30-5.90); RDW 13.5 % (11.5-15.5); WBC 8.8 k/uL (3.8-10.6)
[2024-06-08 17:41] LABS: Appearance,Urine Clear (Clear); Bilirubin,Urine Negative (Negative); Blood,Urine Negative (Negative); Color,Urine Colorless; Glucose,Urine (UA) Negative (Negative); Ketones,Urine Negative (Negative); Leukocyte Esterase,Urine Negative (Negative); Nitrite,Urine Negative (Negative); PH, Urine 6.5 (5.0-8.0); Protein,Urine Negative (Negative); Specific Gravity,Urine 1.012 (1.001-1.035); Urobilinogen,Urine <2.0 mg/dL (<2.0)
[2024-06-08 17:51] LABS: Partial Thromboplastin Time 29.5 sec (22.0-30.0); Prothrombin Time 10.7 sec (10.0-12.5)
[2024-06-08 17:55] LABS: ALT 10 U/L (4-49); AST 17 U/L (17-59); African American GFR (CKD) >90 (>60 ml/min/1.73 sqM); Albumin 3.5 g/dL (3.5-5.0); Alkaline Phosphatase 67 U/L (38-126); Amylase <30 U/L (30-110); Anion Gap 6 mmol/L; Blood Urea Nitrogen 8 mg/dL (9-20); Calcium 9.4 mg/dL (8.4-10.2); Carbon Dioxide 25 mmol/L (22-30); Chloride 104 mmol/L (98-107); Glucose 88 mg/dL (74-99); Lipase 44 U/L (23-300); Non-African American GFR(CKD) >90 (>60 ml/min/1.73 sqM); Potassium 4.5 mmol/L (3.5-5.1); Sodium 135 mmol/L (137-145); Total Bilirubin 0.4 mg/dL (0.2-1.3); Total Protein 5.9 g/dL (6.3-8.2)
[2024-06-08] MEDS: IOPAMIDOL CONTRAST (ORAL USE) VIAL PO PRN (18:43)
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
[2024-06-08] MEDS ORDERED: NALOXONE 0.4 MG/ML 1 ML VIAL IV PRN (22:02)
[2024-06-08] MEDS ORDERED: ONDANSETRON 4 MG/2 ML VIAL IVP PRN (22:02)
--- NOTE | 2024-06-08 22:02 | ED ---
Medical Decision Making - Medical Decision Making Dr. Epperson did come down evaluate patient as patient is still having some discomfort. She will keep patient for observation. - Lab Data Result diagrams: 06/08/24 17:26 06/08/24 17:26 Lab Results 06/08/24 06/08/24 06/08/24 Range/Units 17:26 17:26 17:26 WBC 8.8 (3.8-10.6) k/uL RBC 4.67 (4.30-5.90) m/uL Hgb 12.3 L (13.0-17.5) gm/dL Hct 39.0 (39.0-53.0) % MCV 83.5 (80.0-100.0) fL MCH 26.4 (25.0-35.0) pg MCHC 31.7 (31.0-37.0) g/dL RDW 13.5 (11.5-15.5) % Plt Count 308 (150-450) k/uL MPV 6.9 Neutrophils % 70 % Lymphocytes % 18 % Monocytes % 6 % Eosinophils % 4 % Basophils % 0 % Neutrophils # 6.2 (1.3-7.7) k/uL Lymphocytes # 1.6 (1.0-4.8) k/uL Monocytes # 0.5 (0-1.0) k/uL Eosinophils # 0.4 (0-0.7) k/uL Basophils # 0.0 (0-0.2) k/uL Hypochromasia Moderate PT 10.7 (10.0-12.5) sec INR 1.0 (<1.2) APTT 29.5 (22.0-30.0) sec Sodium (137-145) mmol/L Potassium (3.5-5.1) mmol/L Chloride (98-107) mmol/L Carbon Dioxide (22-30) mmol/L Anion Gap mmol/L BUN (9-20) mg/dL Creatinine (0.66-1.25) mg/dL Est GFR (CKD-EPI)AfAm (>60 ml/min/1.73 sqM) Est GFR (CKD-EPI)NonAf (>60 ml/min/1.73 sqM) Glucose (74-99) mg/dL Calcium (8.4-10.2) mg/dL Total Bilirubin (0.2-1.3) mg/dL AST (17-59) U/L ALT (4-49) U/L Alkaline Phosphatase (38-126) U/L Total Protein (6.3-8.2) g/dL Albumin (3.5-5.0) g/dL Amylase (30-110) U/L Lipase (23-300) U/L Urine Color Colorless Urine Appearance Clear (Clear) Urine pH 6.5 (5.0-8.0) Ur Specific [place] 1.012 (1.001-1.035) Urine Protein Negative (Negative) Urine Glucose (UA) Negative (Negative) Urine Ketones Negative (Negative) Urine Blood Negative (Negative) Urine Nitrite Negative (Negative) Urine Bilirubin Negative (Negative) Urine Urobilinogen <2.0 (<2.0) mg/dL Ur Leukocyte Esterase Negative (Negative) 06/08/24 Range/Units 17:26 WBC (3.8-10.6) k/uL RBC (4.30-5.90) m/uL Hgb (13.0-17.5) gm/dL Hct (39.0-53.0) % MCV (80.0-100.0) fL MCH (25.0-35.0) pg MCHC (31.0-37.0) g/dL RDW (11.5-15.5) % Plt Count (150-450) k/uL MPV Neutrophils % % Lymphocytes % % Monocytes % % Eosinophils % % Basophils % % Neutrophils # (1.3-7.7) k/uL Lymphocytes # (1.0-4.8) k/uL Monocytes # (0-1.0) k/uL Eosinophils # (0-0.7) k/uL Basophils # (0-0.2) k/uL Hypochromasia PT (10.0-12.5) sec INR (<1.2) APTT (22.0-30.0) sec Sodium 135 L (137-145) mmol/L Potassium 4.5 (3.5-5.1) mmol/L Chloride 104 (98-107) mmol/L Carbon Dioxide 25 (22-30) mmol/L Anion Gap 6 mmol/L BUN 8 L (9-20) mg/dL Creatinine 0.77 (0.66-1.25) mg/dL Est GFR (CKD-EPI)AfAm >90 (>60 ml/min/1.73 sqM) Est GFR (CKD-EPI)NonAf >90 (>60 ml/min/1.73 sqM) Glucose 88 (74-99) mg/dL Calcium 9.4 (8.4-10.2) mg/dL Total Bilirubin 0.4 (0.2-1.3) mg/dL AST 17 (17-59) U/L ALT 10 (4-49) U/L Alkaline Phosphatase 67 (38-126) U/L Total Protein 5.9 L (6.3-8.2) g/dL Albumin 3.5 (3.5-5.0) g/dL Amylase <30 L (30-110) U/L Lipase 44 (23-300) U/L Urine Color Urine Appearance (Clear) Urine pH (5.0-8.0) Ur Specific [place] (1.001-1.035) Urine Protein (Negative) Urine Glucose (UA) (Negative) Urine Ketones (Negative) Urine Blood (Negative) Urine Nitrite (Negative) Urine Bilirubin (Negative) Urine Urobilinogen (<2.0) mg/dL Ur Leukocyte Esterase (Negative) Disposition Clinical Impression: Abdominal pain Disposition: ADMITTED IP TO THIS HOSP Condition: Stable Instructions (If sedation given, give patient instructions): Abdominal Pain (ED) Additional Instructions: Please do follow-up with your primary care physician and surgeon in the next day or 2 for recheck. Return for increased pain, fever, vomiting, worsening or changing symptoms or other concerns. Is patient prescribed a controlled substance at d/c from ED?: No Referrals: Aden Diaz MD [Primary Care Provider] - 1-2 days Time of Disposition: 22:01
[2024-06-08] MEDS: ACETAMINOPHEN IV (For NPO) 1,000 MG in EMPTY BAG 1 BAG IVPB ONE (22:17)
[2024-06-08] MEDS: SODIUM CHLORIDE 0.9% 1,000 ML IV SCH (22:19)
[2024-06-08] MEDS: HYDROmorphone 1 MG/ML 1 ML SYRINGE IVP PRN (22:55)
[2024-06-08] MEDS: clonazePAM 1 MG TAB PO STA (23:17)
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
[2024-06-09 07:46] LABS: Basophils % (A) 0 %; Eosinophils # (A) 0.5 k/uL (0-0.7); Eosinophils % (A) 6 %; HGB 11.9 gm/dL (13.0-17.5); Hypochromasia Marked; Lymphocytes # (A) 1.5 k/uL (1.0-4.8); Lymphocytes % (A) 18 %; MCH 27.1 pg (25.0-35.0); MCHC 32.2 g/dL (31.0-37.0); MCV 84.3 fL (80.0-100.0); Mean Platelet Volume 6.9; Monocytes # (A) 0.4 k/uL (0-1.0); Monocytes % (A) 5 %; Neutrophils # (A) 5.6 k/uL (1.3-7.7); Neutrophils % (A) 70 %; Platelet Count 305 k/uL (150-450); RBC 4.39 m/uL (4.30-5.90); RDW 13.6 % (11.5-15.5); WBC 8.1 k/uL (3.8-10.6)
[2024-06-09] MEDS ORDERED: HYDROcodone/APAP 10-325MG 1 EACH TAB PO PRN (08:04)
[2024-06-09 08:21] LABS: ALT 10 U/L (4-49); AST 15 U/L (17-59); African American GFR (CKD) >90 (>60 ml/min/1.73 sqM); Albumin 3.1 g/dL (3.5-5.0); Alkaline Phosphatase 61 U/L (38-126); Anion Gap 4 mmol/L; Blood Urea Nitrogen 6 mg/dL (9-20); Calcium 9.2 mg/dL (8.4-10.2); Carbon Dioxide 27 mmol/L (22-30); Chloride 105 mmol/L (98-107); Glucose 90 mg/dL (74-99); Non-African American GFR(CKD) >90 (>60 ml/min/1.73 sqM); Potassium 4.6 mmol/L (3.5-5.1); Sodium 136 mmol/L (137-145); Total Bilirubin 0.6 mg/dL (0.2-1.3); Total Protein 5.4 g/dL (6.3-8.2)
[2024-06-09] MEDS: PANTOPRAZOLE 40 MG/10 ML VIAL IV SCH (08:36)
--- NOTE | 2024-06-09 11:49 | NM ---
EXAMINATION TYPE: NM hepatobiliary wo EF DATE OF EXAM: 06/09/2024 COMPARISON: NONE CLINICAL INDICATION: Male, 44 years old with history of Fluid s/p cholecystectomy for bile leak, pain ; TECHNIQUE: After the intravenous administration of 5.2 mCi Tc 99m Mebrofenin hepatobiliary scintigrap hy is performed. Immediate images post injection. FINDINGS: Delayed images demonstrate small focus of increased radiotracer accumulation overlying the expected l ocation of the gallbladder fossa which may reflect a small contained bile leak. No evidence of par[place] lic, interloop or pelvic radiotracer accumulation. IMPRESSION: I Cannot exclude a small contained leak at the level of the gallbladder fossa
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
[2024-06-09] MEDS: HEPARIN SODIUM,PORCINE 5,000 UNIT/ML 1 ML VIAL SQ SCH (15:53)
[2024-06-09] MEDS ORDERED: NON FORMULARY DRUG (Epinephrine (Auto Inject) 0.3 MG/0.3 ML Each) IM PRN (16:33)
[2024-06-09] MEDS ORDERED: ALBUTEROL HFA INHALER INHALATION PRN (16:33)
[2024-06-09] MEDS: KETOROLAC 15 MG/ML 1 ML VIAL IVP SCH (18:36)
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
[2024-06-09] MEDS: HYDROmorphone 1 MG/ML 1 ML SYRINGE IVP PRN (18:54)
[2024-06-09] MEDS: clonazePAM 1 MG TAB PO SCH (21:56)
[2024-06-09] MEDS: METOPROLOL TARTRATE 25 MG TAB PO SCH (21:56)
[2024-06-09] MEDS: GABAPENTIN 400 MG CAP PO SCH (21:56)
[2024-06-09] MEDS: LACTULOSE 200 GM/300 ML (FROM 1/2 GAL JUG) PO SCH (23:26)
[2024-06-10] MEDS: LORATADINE 10 MG TAB PO SCH (08:29)
[2024-06-10] MEDS: PANTOPRAZOLE 40 MG TABLET PO SCH (08:35)
[2024-06-10] MEDS: VALSARTAN 160 MG TAB PO SCH (08:38)
[2024-06-10] MEDS ORDERED: ASPIRIN 81 MG PO SCH (09:00)
[2024-06-10] MEDS ORDERED: methylPREDNISolone ACETATE 80 MG/ML 1 ML VIAL ONE (11:30)
[2024-06-10] MEDS ORDERED: MIDAZOLAM 2 MG/2 ML VIAL ONE (11:30)
[2024-06-10] MEDS ORDERED: IOPAMIDOL M200 10 ML VIAL ONE (11:30)
[2024-06-10] MEDS ORDERED: ROPIVACAINE 5MG/ML 20ML VIAL ONE (11:30)
[2024-06-10] MEDS ORDERED: fentaNYL (PF) 50 MCG/ML 2 ML AMP ONE ×2 (11:30→16:45)
--- NOTE | 2024-06-10 11:44 | P.PCN ---
Date of Procedure: 06/10/24 Procedure(s) Performed: PREOPERATIVE DIAGNOSIS: 1- Lumbar Degenerative Disc Diseases 2-Lumbar spondylosis with Facet arthropathy without myelopathy. 3-lumbar myofascial pain syndrome POSTOPERATIVE DIAGNOSIS: 1-lumbar degenerative disc disease. 2-lumbar spondylosis with facet arthropathy without myelopathy. 3-lumbar myofascial pain syndrome PROCEDURE 1. Lumbar epidural steroid injection under fluoroscopic guidance at the L5-S1 level. (Fluoroscopy imaging was available in radiology department) 2. Lumbar epidurogram. 3-trigger point injection lumbar paraspinal muscles 4 on the left side, and 2 on the right side lumbar paraspinal muscles ANESTHESIA: Moderate sedation with Versed 2 mg and fentanyl 100 mcg, ( sedations start at 11:30, finished at 11:35 ). EBL: Minimal PROCEDURE INDICATION: The patient with low back pain and radiculitis symptoms unresponsive to conservative treatment. Fluoroscopy was used to optimize visualization of the needle placement and to maximize safety. PROCEDURE DESCRIPTION / TECHNIQUE: The patient was seen and identified in the preoperative area. Risks, benefits, complications including but not limited to infections ,bleeding ,allergic reaction to the medications ,nerve damage and not complete pain releife , and alternatives were discussed with the patient. The patient agreed to proceed with the procedure and signed the consent, and vital signs were stable. Patient was taken to the OR and time out was completed. The patient was placed in the prone position on procedure table and a pillow was placed under the abdomen to reduce lumbar lordosis. The lumbosacral area was prepped and draped in the usual sterile fashion.ere closely monitored during the procedure. Vital signs was monitered during the entire procedure. Using anterior-posterior fluoroscopy, the L5-S1 interlaminar space was identified and the skin over this site was marked and then infiltrated with 1% lidocaine subcutaneously. Subsequently, a 18 -gauge 6 inches Tuohy epidural needle was inserted and advanced toward the epidural space using the ``Loss of resistance technique and guided by AP and lateral fluoroscopy. The correct needle position in the epidural space was verified with the injection of 2 mL of the water soluble contrast dye Isovue 200 contrast and observing an excellent epidurogram with the epidural spread of the dye, after negative aspiration for blood and CSF and in the absence of paresthesias. Again after negative aspiration, a 6 ml mixture containing 80 mg of Depo-medrol ( Preservetive Free ), and 2 ml of preservative free Normal Saline, and 2 ml of preservative free lidocaine 1% solution was injected and a washout of epidurogram was seen. Needle was withdrawn intact. And after that the trigger point injection done using 25-gauge needle each of the trigger point injected with the ropivacaine 0.5% 2 mL injected at each trigger point after negative aspiration a total of 12 mL of ropivacaine used 2 mL injected at each trigger point 4 on the left side lumbar paraspinal muscles and 2 on the right side lumbar paraspinal muscles. Patient tolerated the procedure well without any complications COMPLICATIONS: None DISPOSITION / PLANS: . There was no evidence of lower extremity motor or sensory deficit after the procedure.
--- NOTE | 2024-06-10 11:57 | FL ---
Fluoroscopy History: GLADYSI MARY 1 SEC [place] .[id number] DAP
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
[2024-06-10] MEDS: LEVOFLOXACIN 500MG-D5W PMX 500 MG in DEXTROSE/WATER 1 100ML.BAG IVPB SCH (15:27)
[2024-06-10] MEDS: INDOMETHACIN 100 MG SUPPOSITORY RECTAL ONE (15:31)
[2024-06-10] MEDS ORDERED: SUCCINYLCHOLINE CHLORIDE 200 MG/10 ML VIAL IV ONE (16:45)
[2024-06-10] MEDS ORDERED: LIDOCAINE 1% INJ 10MG/ML (20 ML MDV) ONE (16:45)
[2024-06-10] MEDS ORDERED: PROPOFOL 10 MG/ML 20 ML VIAL IV ONE (16:45)
[2024-06-10] MEDS: IOPAMIDOL-300 50ML BTL MISCELLANE ONE (17:19)
[2024-06-10] MEDS: IV FLUID CONTINUATION 1,000 ML IV ONE (17:25)
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
[2024-06-10] MEDS: HYDROmorphone 0.5 MG/0.5 ML SYRINGE IVP PRN ×2 (17:42→18:21)
[2024-06-10] MEDS: HYDROmorphone 0.5 MG/0.5 ML SYRINGE IVP STA (18:00)
[2024-06-10] MEDS: LACTULOSE 20 GM/30 ML CUP PO SCH (21:51)
[2024-06-11 07:33] VITALS: BP 146/85; PULSE 78; RESP 17; TEMP 97.7
[2024-06-11] MEDS ORDERED: oxyCODONE-APAP 10-325MG 1 EACH TAB PO PRN (10:45)
--- NOTE | 2024-06-11 16:36 | FL ---
EXAMINATION TYPE: FL ERCP DATE OF EXAM: 06/10/2024 FLUOROSCOPY Procedure fluoroscopy during ERCP. One image is provided. FL TIME- 23.7 SEC DAP- [id number] Gycm2
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
== END 2024-06-11 14:34 | disposition home or self-care (01) ==
LOC: EC 16:10 → 1SOBS 22:03 → OBSVTOIN 22:04 → 1SOBS 22:18
PROVIDERS: ADMIT Surgery Plastic and Reconstructive Surgery; ATTEND Surgery Plastic and Reconstructive Surgery
PROC: B01B1ZZ Fluoroscopy of Spinal Cord using Low Osmolar Contrast (ICD-10-PCS; 2024-06-10)
PROC: 3E0233Z Introduction of Anti-inflammatory into Muscle, Percutaneous Approach (ICD-10-PCS; 2024-06-10)
PROC: 3E023BZ Introduction of Anesthetic Agent into Muscle, Percutaneous Approach (ICD-10-PCS; 2024-06-10)
PROC: 0F798DZ Dilation of Common Bile Duct with Intraluminal Device, Via Natural or Artificial Opening Endoscopic (ICD-10-PCS; principal; 2024-06-10 08:00)
PROC: 3E0R33Z Introduction of Anti-inflammatory into Spinal Canal, Percutaneous Approach (ICD-10-PCS; 2024-06-10 09:00)
DX: K83.2 Perforation of bile duct (principal); R10.10 Upper abdominal pain, unspecified; Y92.410 Unspecified street and highway as the place of occurrence of the external cause; V48.5XXA Car driver injured in noncollision transport accident in traffic accident, initial encounter; E55.9 Vitamin D deficiency, unspecified; E66.01 Morbid (severe) obesity due to excess calories; E78.1 Pure hyperglyceridemia; F32.A Depression, unspecified; G89.4 Chronic pain syndrome; I25.10 Atherosclerotic heart disease of native coronary artery without angina pectoris; I25.2 Old myocardial infarction; I48.0 Paroxysmal atrial fibrillation; H91.90 Unspecified hearing loss, unspecified ear; I10 Essential (primary) hypertension; M79.18 Myalgia, other site; J45.909 Unspecified asthma, uncomplicated; K21.9 Gastro-esophageal reflux disease without esophagitis; M47.816 Spondylosis without myelopathy or radiculopathy, lumbar region; Z68.41 Body mass index [BMI] 40.0-44.9, adult; Z79.01 Long term (current) use of anticoagulants; Z79.82 Long term (current) use of aspirin; Z79.899 Other long term (current) drug therapy; Z86.718 Personal history of other venous thrombosis and embolism; Z90.49 Acquired absence of other specified parts of digestive tract; Z96.652 Presence of left artificial knee joint; Z98.84 Bariatric surgery status; E72.12 Methylenetetrahydrofolate reductase deficiency
CPT/HCPCS: 36415; 74177; 74330; 78226; 80053; 81003; 82150; 83690; 85025; 85610; 85730; 93005; 96361; 96365; 96375; 96376; 99152; 99285

== ENCOUNTER 2024-06-12 13:22 | Observation (INO) | payer OTHER ==
--- NOTE | 2024-06-12 13:53 | ED ---
Abdominal Pain HPI - General Source: patient, RN notes reviewed Mode of arrival: ambulatory Limitations: no limitations <BryanAmita - Last Filed: 06/12/24 13:54> - General Source: patient, RN notes reviewed, old records reviewed Mode of arrival: ambulatory Limitations: no limitations - History of Present Illness MD Complaint: abdominal pain -: days(s) Location: diffuse, periumbilical, epigastric, suprapubic Radiation: epigastric, suprapubic Severity: moderate Severity scale (1-10): 7 Quality: stabbing, aching Consistency: constant Improves With: nothing Worsens With: nothing Associated Symptoms: nausea Treatments Prior to Arrival: other (0) <Clint Richardson - Last Filed: 07/06/24 02:48> - General Chief Complaint: Abdominal Pain Stated Complaint: abd pain Time Seen by Provider: 06/12/24 13:52 - History of Present Illness Initial Comments: Quick [id number] male presenting for right upper quadrant abdominal pain. He recently underwent cholecystectomy by Dr. Sun and was discharged yesterday. He states that his pain is not being relieved by his home medi cations. (Amita Adams) This is a 44-year-old male to the ER for evaluation of severe abdominal pain right upper quadrant abdominal pain with recent cholecystectomy, after chol ecystectomy patient did have stent placed gallbladder stent with persistent abdominal pain here in the emergency department. Patient has mild nausea and vomiting but no bowel movement for the last few days. (Clint Richardson) - Related Data Home Medications Medication Instructions Recorded Confirmed Omeprazole 40 mg PO DAILY 07/10/23 06/12/24 Cyclobenzaprine HCl 10 mg PO TID PRN 11/18/23 06/12/24 Gabapentin [Neurontin] 400 mg PO TID 11/18/23 06/12/24 Valsartan 320 mg PO DAILY 11/18/23 06/12/24 Ferrous Sulfate [Iron (65 MG 325 mg PO BID 11/30/23 06/12/24 Elemental)] HYDROcodone/APAP 10-325MG [[place] 1 tab PO QID PRN 11/30/23 06/12/24 10-325] EPINEPHrine (Auto Inject) [Epipen] 0.3 mg IM ONCE PRN 01/16/24 06/12/24 clonazePAM [KlonoPIN] 1 mg PO TID 01/16/24 06/12/24 Apixaban [Eliquis] 5 mg PO BID 06/03/24 06/12/24 Albuterol Inhaler [Ventolin Hfa 2 puff INHALATION RT-Q6H PRN 06/08/24 06/12/24 Inhaler] Atorvastatin [Lipitor] 40 mg PO HS 06/08/24 06/12/24 Famotidine [Pepcid] 20 mg PO DAILY 06/08/24 06/12/24 Lactulose [Constulose] 30 gm PO BID 06/08/24 06/12/24 Loratadine 10 mg PO DAILY 06/08/24 06/12/24 Metoprolol Tartrate [Lopressor] 25 mg PO BID 06/08/24 06/12/24 Previous Rx's Medication Instructions Recorded Aspirin 81 mg PO DAILY 30 Days #30 tab 02/10/24 Acetaminophen Tab [Tylenol Tab] 1,000 mg PO Q6HR PRN #30 tablet 06/03/24 oxyCODONE HCL/ACETAMINOPHEN 1 tab PO Q6HR PRN 5 Days #20 tab 06/11/24 [Percocet 10-325 mg] Allergies Allergy/AdvReac Type Severity Reaction Status Date / Time No Known Allergies Allergy Verified 06/12/24 18:58 Review of Systems ROS Other: All systems not noted in ROS Statement are negative. <Amita Adams - Last Filed: 06/12/24 13:54> ROS Other: All systems not noted in ROS Statement are negative. <Clint Richardson - Last Filed: 07/06/24 02:48> ROS Statement: Those systems with pertinent positive or pertinent negative responses have been documented in the HPI. Past Medical History Past Medical History: Atrial Fibrillation, Asthma, Blood Disorder, Deep Vein Thrombosis (DVT), GERD/Reflux, Hearing Disorder / Deafness, Hypertension, Myocardial Infarction ([place]), Sleep Apnea/CPAP/BIPAP Additional Past Medical History / Comment(s): bleeding with and without stools from the rectal area,DVT X 3- LAST TIME 2012- LT LEG, LUMBAR DDD- . HAS HX MTHFR GENE MUTATION-POSITIVE FOR HETEROZYGOUS PER DR. FRANCISCO'S OFFICE, doen not use CPAP, chronic swelling left lower leg Last Myocardial Infarction Date:: 09/2021 History of Any Multi-Drug Resistant Organisms: None Reported Past Surgical History: Bariatric Surgery, Cardiac Ablation, Cholecystectomy, Heart Catheterization, Joint Replacement Additional Past Surgical History / Comment(s): LEFT KNEE REPLACEMENT, LT INDEX JOINT REPLACEMENT, PAIN CLINIC PROCEDURES, COLONOSCOPY, EGD. Gastric bypass 07-06-23 Past Anesthesia/Blood Transfusion Reactions: Previous Problems w/ Anesthesia, Family History of Problems w/ Anesthesia, Motion Sickness Additional Past Anesthesia/Blood Transfusion Reaction / Comment(s): HARD TO PUT TO SLEEP-(pt and father)-needs more than normal. no hx blood transfusion Past Psychological History: Depression Smoking Status: Never smoker Past Alcohol Use History: Occasional Past Drug Use History: None Reported - Past Family History Sister(s) Family Medical History: Cancer Additional Family Medical History / Comment(s): Skin cancer. Mother History Unknown: Yes <Amita Adams - Last Filed: 06/12/24 13:54> General Exam Limitations: no limitations <AdamsAmita - Last Filed: 06/12/24 13:54> General appearance: alert, in no apparent distress, anxious Head exam: Present: atraumatic, normocephalic, normal inspection Eye exam: Present: normal appearance, PERRL, EOMI. Absent: scleral icterus, conjunctival injection, periorbital swelling ENT exam: Present: normal exam, mucous membranes moist Neck exam: Present: normal inspection. Absent: tenderness, meningismus, lymphadenopathy Respiratory exam: Present: normal lung sounds bilaterally. Absent: respiratory distress, wheezes, rales, rhonchi, stridor Cardiovascular Exam: Present: regular rate, normal rhythm, normal heart sounds. Absent: systolic murmur, diastolic murmur, rubs, gallop, clicks GI/Abdominal exam: Present: soft, normal bowel sounds. Absent: distended, tenderness, guarding, rebound, rigid Extremities exam: Present: normal inspection, full ROM, normal capillary refill. Absent: tenderness, pedal edema, joint swelling, calf tenderness Back exam: Present: normal inspection Neurological exam: Present: alert, oriented X3, CN II-XII intact Psychiatric exam: Present: normal affect, normal mood Skin exam: Present: warm, dry, intact, normal color. Absent: rash <Clint Richardson - Last Filed: 07/06/24 02:48> - General Exam Comments Initial Comments: Visual Physical Exam Vital signs reviewed General: Well-appearing, nontoxic, no acute distress. Head: Normocephalic, atraumatic Eyes: PERRLA, EOMI ENT: Airway patent Chest: Nonlabored breathing Skin: No visual rash, normal skin tone Neuro: Alert and oriented 3 Musculoskeletal: No gross abnormalities (AdamsAmita) Course <Clint Richardson - Last Filed: 07/06/24 02:48> Vital Signs 06/12/24 06/12/24 06/12/24 13:30 16:53 20:09 Temperature 97.8 F Pulse Rate 86 84 77 Pulse Rate [ Pulse Oximetery ] Respiratory 18 16 16 Rate Blood Pressure 121/74 128/74 132/76 Blood Pressure [Left Arm] O2 Sat by Pulse 97 98 99 Oximetry 06/12/24 22:01 Temperature 98.6 F Pulse Rate Pulse Rate [ 73 Pulse Oximetery ] Respiratory 16 Rate Blood Pressure Blood Pressure 122/81 [Left Arm] O2 Sat by Pulse 95 Oximetry - Reevaluation(s) Reevaluation #1: 06/12/24 15:52 Records reviewed (Clint Richardson) Reevaluation #2: 06/12/24 17:48 Medical records reviewed (Clint Richardson) Reevaluation #3: 06/12/24 17:48 Informed of results and questions answered (Clint Richardson) Reevaluation #4: Was pt. sent in by a medical professional or institution (, PA, HEAD WORKER, urgent care, hospital, or correction...) When possible be specific @ -no Did you speak to anyone other than the patient for history (EMS, parent, family, police, friend...)? What history was obtained from this source @ -no Did you review nursing and triage notes (agree or disagree)? Why? @ -agree Are old charts reviewed (outside hosp., previous admission, EMS record, old EKG, old radiological studies, urgent care reports/EKG's, correction records)? Report findings @ -yes Differential Diagnosis (chest pain, altered mental status, abdominal pain women, abdominal pain men, vaginal bleeding, weakness, fever, dyspnea, syncope, headache, dizziness, GI bleed, back pain, seizure, CVA, palpatations, mental health, musculoskeletal)? @ -prior EKG interpreted by me (3pts min.). @ -yes X-rays interpreted by me (1pt min.). @ -no CT interpreted by me (1pt min.). @ -yes negative for acute disease U/S interpreted by me (1pt. min.). @ -no What testing was considered but not performed or refused? (CT, X-rays, U/S, labs)? Why? @ -none What meds were considered but not given or refused? Why? @ -none Did you discuss the management of the patient with other professionals (professionals i.e. , PA, HEAD WORKER, lab, RT, psych nurse, secondary social studies teacher, middle school spanish teacher, teacher, recruitment officer, housing case manager)? Give summary @ -no Was smoking cessation discussed for >3mins.? @ -no Was critical care preformed (if so, how long)? @ -no Were there social determinants of health that impacted care today? How? (Homelessness, low income, unemployed, alcoholism, drug addiction, transportation, low edu. Level, literacy, decrease access to med. care, penitentiary, rehab)? @ -none Was there de-escalation of care discussed even if they declined (Discuss DNR or withdrawal of care, Hospice)? DNR status @ -no What co-morbidities impacted this encounter? (DM, HTN, Smoking, COPD, CAD, Cancer, CVA, ARF, Chemo, Hep., AIDS, mental health diagnosis, sleep apnea, morbid obesity)? @ -none Was patient admitted / discharged? Hospital course, mention meds given and route, prescriptions, significant lab abnormalities, going to OR and other pertinent info. @ - 44 male to the ER for evaluation of severe abdominal pain postoperative abdominal pain noted here in the emergency room. Patient be admitted for pain control Admitted Undiagnosed new problem with uncertain prognosis? @ -no Drug Therapy requiring intensive monitoring for toxicity (Heparin, Nitro, Insulin, Cardizem)? @ -no Were any procedures done? @ -no Diagnosis/symptom? @ -Postoperative pain Acute, or Chronic, or Acute on Chronic? @ -Acute Uncomplicated (without systemic symptoms) or Complicated (systemic symptoms)? @ -Complicated Side effects of treatment? @ -no Exacerbation, Progression, or Severe Exacerbation? @ -exacerbation Poses a threat to life or bodily function? How? (Chest pain, [place], [place], pneumonia, PE, COPD, DKA, ARF, appy, cholecystitis, CVA, Diverticulitis, Homicidal, Suicidal, threat to staff... and all critical care pts) @ -yes with postoperative complications (Clint Richardson) Reevaluation #5: Differential Abdominal Pain Men: Appendicitis, cholecystitis, diverticulosis, ischemic bowel, pancreatitis, hepatitis, UTI, gastroenteritis, AAA, incarcerated hernia, bowel obstruction, constipation, inflammatory bowel, hepatitis, peptic ulcer disease, splenic infarction, perforated viscus, testicular torsion, this is not meant to be an all-inclusive list (Clint Richardson) - Consultations Consultation #1: Spoke with patient agrees to admit this patient (Clint Richardson) Medical Decision Making <Amita Adams - Last Filed: 06/12/24 13:54> - Lab Data Result diagrams: 06/12/24 13:55 06/12/24 13:55 - Radiology Data Radiology results: report reviewed (CT abdomen pelvis is negative for acute disease), image reviewed <Clint Richardson - Last Filed: 07/06/24 02:48> - Medical Decision Making I completed the quick note portion of this chart signed Amita Adams PA-C (Amita Adams) 44 male to the ER for evaluation of severe abdominal pain postoperative abdominal pain noted here in the emergency room. Patient be admitted for pain control (Clint Richardson) - Lab Data Lab Results 06/12/24 06/12/24 06/12/24 Range/Units 13:55 13:55 13:55 WBC 10.5 (3.8-10.6) k/uL RBC 5.01 (4.30-5.90) m/uL Hgb 13.2 (13.0-17.5) gm/dL Hct 42.3 (39.0-53.0) % MCV 84.3 (80.0-100.0) fL MCH 26.3 (25.0-35.0) pg MCHC 31.1 (31.0-37.0) g/dL RDW 13.5 (11.5-15.5) % Plt Count 378 (150-450) k/uL MPV 6.6 Neutrophils % 72 % Lymphocytes % 15 % Monocytes % 5 % Eosinophils % 7 % Basophils % 0 % Neutrophils # 7.6 (1.3-7.7) k/uL Lymphocytes # 1.6 (1.0-4.8) k/uL Monocytes # 0.6 (0-1.0) k/uL Eosinophils # 0.7 (0-0.7) k/uL Basophils # 0.0 (0-0.2) k/uL Hypochromasia Marked Sodium 141 (137-145) mmol/L Potassium 4.5 (3.5-5.1) mmol/L Chloride 104 (98-107) mmol/L Carbon Dioxide 31 H (22-30) mmol/L Anion Gap 6 mmol/L BUN 13 (9-20) mg/dL Creatinine 1.11 (0.66-1.25) mg/dL Est GFR (CKD-EPI)AfAm >90 (>60 ml/min/1.73 sqM) Est GFR (CKD-EPI)NonAf 80 (>60 ml/min/1.73 sqM) Glucose 98 (74-99) mg/dL Lactic Ac Sepsis Rflx Plasma Lactic Acid Jordan 2.3 H* (0.7-2.0) mmol/L Calcium 9.3 (8.4-10.2) mg/dL Total Bilirubin 0.4 (0.2-1.3) mg/dL AST 16 L (17-59) U/L ALT 11 (4-49) U/L Alkaline Phosphatase 73 (38-126) U/L Total Protein 6.2 L (6.3-8.2) g/dL Albumin 3.8 (3.5-5.0) g/dL Lipase 64 (23-300) U/L 06/12/24 Range/Units 16:09 WBC (3.8-10.6) k/uL RBC (4.30-5.90) m/uL Hgb (13.0-17.5) gm/dL Hct (39.0-53.0) % MCV (80.0-100.0) fL MCH (25.0-35.0) pg MCHC (31.0-37.0) g/dL RDW (11.5-15.5) % Plt Count (150-450) k/uL MPV Neutrophils % % Lymphocytes % % Monocytes % % Eosinophils % % Basophils % % Neutrophils # (1.3-7.7) k/uL Lymphocytes # (1.0-4.8) k/uL Monocytes # (0-1.0) k/uL Eosinophils # (0-0.7) k/uL Basophils # (0-0.2) k/uL Hypochromasia Sodium (137-145) mmol/L Potassium (3.5-5.1) mmol/L Chloride (98-107) mmol/L Carbon Dioxide (22-30) mmol/L Anion Gap mmol/L BUN (9-20) mg/dL Creatinine (0.66-1.25) mg/dL Est GFR (CKD-EPI)AfAm (>60 ml/min/1.73 sqM) Est GFR (CKD-EPI)NonAf (>60 ml/min/1.73 sqM) Glucose (74-99) mg/dL Lactic Ac Sepsis Rflx Y Plasma Lactic Acid Jordan (0.7-2.0) mmol/L Calcium (8.4-10.2) mg/dL Total Bilirubin (0.2-1.3) mg/dL AST (17-59) U/L ALT (4-49) U/L Alkaline Phosphatase (38-126) U/L Total Protein (6.3-8.2) g/dL Albumin (3.5-5.0) g/dL Lipase (23-300) U/L Disposition <Amita Adams - Last Filed: 06/12/24 13:54> Is patient prescribed a controlled substance at d/c from ED?: No Time of Disposition: 17:25 <Clint Richardson - Last Filed: 07/06/24 02:48> Clinical Impression: Obesity (BMI 30-39.9), Generalized weakness, Abdominal pain, Status post laparoscopic cholecystectomy, Chest pain, Postoperative pain Disposition: ADMITTED IP TO THIS HOSP Condition: Fair
[2024-06-12 15:52] LABS: Basophils % (A) 0 %; Eosinophils # (A) 0.7 k/uL (0-0.7); Eosinophils % (A) 7 %; HCT 42.3 % (39.0-53.0); HGB 13.2 gm/dL (13.0-17.5); Hypochromasia Marked; Lymphocytes # (A) 1.6 k/uL (1.0-4.8); Lymphocytes % (A) 15 %; MCH 26.3 pg (25.0-35.0); MCHC 31.1 g/dL (31.0-37.0); MCV 84.3 fL (80.0-100.0); Mean Platelet Volume 6.6; Monocytes # (A) 0.6 k/uL (0-1.0); Monocytes % (A) 5 %; Neutrophils # (A) 7.6 k/uL (1.3-7.7); Neutrophils % (A) 72 %; Platelet Count 378 k/uL (150-450); RBC 5.01 m/uL (4.30-5.90); RDW 13.5 % (11.5-15.5); WBC 10.5 k/uL (3.8-10.6)
[2024-06-12] MEDS: HYDROmorphone 1 MG/ML 1 ML SYRINGE IVP STA ×2 (16:03→18:06)
[2024-06-12] MEDS: SODIUM CHLORIDE 0.9% 500 ML 500 ML IV STA (16:07)
[2024-06-12] MEDS: SODIUM CHLORIDE 0.9% 1,000 ML IV STA ×2 (16:07)
[2024-06-12 16:10] LABS: ALT 11 U/L (4-49); AST 16 U/L (17-59); African American GFR (CKD) >90 (>60 ml/min/1.73 sqM); Albumin 3.8 g/dL (3.5-5.0); Alkaline Phosphatase 73 U/L (38-126); Anion Gap 6 mmol/L; Blood Urea Nitrogen 13 mg/dL (9-20); Calcium 9.3 mg/dL (8.4-10.2); Carbon Dioxide 31 mmol/L (22-30); Chloride 104 mmol/L (98-107); Glucose 98 mg/dL (74-99); Lipase 64 U/L (23-300); Non-African American GFR(CKD) 80 (>60 ml/min/1.73 sqM); Potassium 4.5 mmol/L (3.5-5.1); Sodium 141 mmol/L (137-145); Total Bilirubin 0.4 mg/dL (0.2-1.3); Total Protein 6.2 g/dL (6.3-8.2)
--- NOTE | 2024-06-12 16:39 | CT ---
EXAMINATION TYPE: CT abdomen pelvis w con CT DLP: 2380.9 mGycm, Automated exposure control for dose reduction was used. DATE OF EXAM: 06/12/2024 4:25 PM COMPARISON: CT abdomen pelvis most recent from 06/08/2024 CLINICAL INDICATION:Male, 44 years old with history of abdominal pain; pt presentd with abdominal amber n after recent GB sx with stent. TECHNIQUE: Axial CT of the abdomen and pelvis. Sagittal and coronal reformats were created on a [employer] workstation. Contrast used:100ml mL of Isovue 300 with IV Contrast, (none if empty) Oral contrast used: without Oral Contrast (none if empty) FINDINGS: LOWER CHEST: Unremarkable ABDOMEN LIVER: Unremarkable GALLBLADDER AND BILE DUCTS: Redemonstrated postsurgical changes from recent cholecystectomy. Simple f luid is again identified within the gallbladder fossa and adjacent to the right hepatic lobe, no sign ificant increase in volume when compared to the prior study. Pneumobilia is identified as well as sabrina iary stent which courses through the common bile duct and into the duodenum. PANCREAS: Unremarkable. SPLEEN: Unremarkable. ADRENAL GLANDS: Unremarkable. KIDNEYS AND URETERS: No evidence of hydronephrosis or renal calculus. The ureters are unremarkable. PELVIS BLADDER: Unremarkable REPRODUCTIVE: Unremarkable. ABDOMEN & PELVIS STOMACH AND BOWEL: Postsurgical changes are appreciated of the gastric fundus. No evidence of bowel o bstruction. PERITONEUM/RETROPERITONEUM: No evidence of pneumoperitoneum VASCULATURE: No evidence of aortic aneurysm. MUSCULOSKELETAL: No acute osseous abnormalities. Mild disc degeneration changes are present throughou t the thoracolumbar spine. LYMPH NODES: No gross evidence for lymphadenopathy. SOFT TISSUE/ABDOMINAL WALL: Postsurgical changes of anterior abdominal wall. IMPRESSION: 1. Redemonstrate postsurgical changes from recent cholecystectomy, simple fluid within the gallbladd er fossa in felt postsurgical in nature. If symptoms persist, consider follow-up right upper quadrant ultrasound to ensure continued decrease in size of the collection. 2. Biliary stent in place with small volume expected pneumobilia.
[2024-06-12 16:53] VITALS: RESP 16
[2024-06-12] MEDS ORDERED: NALOXONE 0.4 MG/ML 1 ML VIAL IV PRN (17:44)
[2024-06-12] MEDS: SODIUM CHLORIDE 0.9% 1,000 ML IV SCH (18:06)
[2024-06-12 18:24] LABS: Appearance,Urine Clear (Clear); Bilirubin,Urine Negative (Negative); Blood,Urine Negative (Negative); Color,Urine Light Yellow; Glucose,Urine (UA) Negative (Negative); Ketones,Urine Negative (Negative); Leukocyte Esterase,Urine Negative (Negative); Nitrite,Urine Negative (Negative); PH, Urine 6.5 (5.0-8.0); Protein,Urine Negative (Negative); Urobilinogen,Urine <2.0 mg/dL (<2.0)
[2024-06-12 18:29] LABS: Specific Gravity,Urine >1.050 (1.001-1.035)
[2024-06-12] MEDS: MORPHINE SULFATE 4 MG/ML SYRINGE IV PRN (21:11)
[2024-06-12] MEDS ORDERED: ALBUTEROL NEBULIZED 2.5 MG/3 ML INHALATION PRN (21:32)
[2024-06-12] MEDS: ONDANSETRON 4 MG/2 ML VIAL IVP PRN (21:51)
[2024-06-12] MEDS: METOPROLOL TARTRATE 25 MG TAB PO SCH (22:09)
[2024-06-12] MEDS: clonazePAM 1 MG TAB PO SCH (22:09)
[2024-06-12] MEDS: GABAPENTIN 400 MG CAP PO SCH (22:09)
--- NOTE | 2024-06-13 00:27 | P.HPIM ---
History of Present Illness H&P Date: 06/12/24 Chief Complaint: Abdominal pain 44-year-old male with A-fib on Eliquis hypertension history of gastric bypass surgery Patient coming in for worsening abdominal pain he has recently underwent lap christina and stent placement around June 04 stayed in the hospital for couple days and was discharged home since discharge he continues to have worsening abdominal pain he describes it as dull achy pain around his left flank and right upper quadrant not related to food but gets worse with movement and trying to get up denies any nausea vomiting reports constipation but he has been passing gases. Patient has no problem with urination denies any fevers or chills denies any chest pain or trouble breathing Patient claims surgical wound looks clean dry and intact no drainage no swelling no surrounding erythema or induration Patient denies tobacco smoking illicit drugs or heavy alcohol review of systems Pertinent positives as noted in HPI. All other systems were reviewed and are negative on exam Constitutional: No acute distress, conversant, pleasant Eyes: Anicteric sclerae, moist conjunctiva, Pupils equal round reactive to light ENMT: NC/AT Oropharynx clear, no erythema, or exudates Neck: Supple, no masses, or JVD No carotid bruits No thyromegaly Lungs: Clear to auscultation Clear to percussion Normal respiratory effort, no accessory muscle use Cardiovascular: Heart regular in rate and rhythm, No murmurs, gallops, or rubs No peripheral edema Abdominal: Soft Tender to palpation over the left flank and right upper quadrant no guarding, rebound or rigidity Abdomen moving with respiration Normoactive bowel sounds Extremities: No digital cyanosis No clubbing Pedal pulses intact and symmetrical Radial pulses intact and symmetrical No calf tenderness Psychiatric: Alert and oriented to person, place and time Appropriate affect fair judgement Neuro Muscles Strength 5/5 in all 4 extremities Sensation to light touch grossly present throughout Cranial nerves II-XII grossly intact Past Medical History Past Medical History: Atrial Fibrillation, Asthma, Blood Disorder, Deep Vein Thrombosis (DVT), GERD/Reflux, Hearing Disorder / Deafness, Hypertension, Myocardial Infarction ([place]), Sleep Apnea/CPAP/BIPAP Additional Past Medical History / Comment(s): bleeding with and without stools from the rectal area,DVT X 3- LAST TIME 2012- LT LEG, LUMBAR DDD- . HAS HX MTHFR GENE MUTATION-POSITIVE FOR HETEROZYGOUS PER DR. FRANCISCO'S OFFICE, doen not use CPAP, chronic swelling left lower leg Last Myocardial Infarction Date:: 09/2021 History of Any Multi-Drug Resistant Organisms: None Reported Past Surgical History: Bariatric Surgery, Cardiac Ablation, Cholecystectomy, Heart Catheterization, Joint Replacement Additional Past Surgical History / Comment(s): LEFT KNEE REPLACEMENT, LT INDEX JOINT REPLACEMENT, PAIN CLINIC PROCEDURES, COLONOSCOPY, EGD. Gastric bypass 07-06-23 Past Anesthesia/Blood Transfusion Reactions: Previous Problems w/ Anesthesia, Family History of Problems w/ Anesthesia, Motion Sickness Additional Past Anesthesia/Blood Transfusion Reaction / Comment(s): HARD TO PUT TO SLEEP-(pt and father)-needs more than normal. no hx blood transfusion Past Psychological History: Depression Smoking Status: Never smoker Past Alcohol Use History: Occasional Past Drug Use History: None Reported - Past Family History Sister(s) Family Medical History: Cancer Additional Family Medical History / Comment(s): Skin cancer. Mother History Unknown: Yes Medications and Allergies Home Medications Medication Instructions Recorded Confirmed Type Omeprazole 40 mg PO DAILY 07/10/23 06/12/24 History Cyclobenzaprine HCl 10 mg PO TID PRN 11/18/23 06/12/24 History Gabapentin [Neurontin] 400 mg PO TID 11/18/23 06/12/24 History Valsartan 320 mg PO DAILY 11/18/23 06/12/24 History Ferrous Sulfate [Iron (65 MG 325 mg PO BID 11/30/23 06/12/24 History Elemental)] HYDROcodone/APAP 10-325MG [[place] 1 tab PO QID PRN 11/30/23 06/12/24 History 10-325] EPINEPHrine (Auto Inject) [Epipen] 0.3 mg IM ONCE PRN 01/16/24 06/12/24 History clonazePAM [KlonoPIN] 1 mg PO TID 01/16/24 06/12/24 History Aspirin 81 mg PO DAILY 30 Days #30 tab 02/10/24 06/12/24 Rx Acetaminophen Tab [Tylenol Tab] 1,000 mg PO Q6HR PRN #30 tablet 06/03/24 06/12/24 Rx Apixaban [Eliquis] 5 mg PO BID 06/03/24 06/12/24 History Albuterol Inhaler [Ventolin Hfa 2 puff INHALATION RT-Q6H PRN 06/08/24 06/12/24 H istory Inhaler] Atorvastatin [Lipitor] 40 mg PO HS 06/08/24 06/12/24 History Famotidine [Pepcid] 20 mg PO DAILY 06/08/24 06/12/24 History Lactulose [Constulose] 30 gm PO BID 06/08/24 06/12/24 History Loratadine 10 mg PO DAILY 06/08/24 06/12/24 History Metoprolol Tartrate [Lopressor] 25 mg PO BID 06/08/24 06/12/24 History oxyCODONE HCL/ACETAMINOPHEN 1 tab PO Q6HR PRN 5 Days #20 tab 06/11/24 06/12/24 Rx [Percocet 10-325 mg] Allergies Allergy/AdvReac Type Severity Reaction Status Date / Time No Known Allergies Allergy Verified 06/12/24 18:58 Physical Exam Vitals: Vital Signs Temp Pulse Pulse Resp BP BP Pulse Ox 06/12/24 22:01 98.6 F 73 16 122/81 95 06/12/24 20:09 77 16 132/76 99 06/12/24 16:53 84 16 128/74 98 06/12/24 13:30 97.8 F 86 18 121/74 97 Intake and Output 06/12/24 06/12/24 06/13/24 14:59 22:59 06:59 Other: Weight 138.346 kg Results CBC & Chem 7: 06/12/24 13:55 06/12/24 13:55 Labs: Abnormal Lab Results - Last 24 Hours (Table) 06/12/24 06/12/24 06/12/24 Range/Units 13:55 13:55 18:11 Carbon Dioxide 31 H (22-30) mmol/L Plasma Lactic Acid [place] 2.3 H* (0.7-2.0) mmol/L AST 16 L (17-59) U/L Total Protein 6.2 L (6.3-8.2) g/dL Ur Specific [place] >1.050 H (1.001-1.035) Assessment and Plan Assessment: 44-year-old male with gastric bypass surgery GERD A-fib on Eliqu coming into the hospital for evaluation of abdominal pain which started after he had his lap christina surgery done on June 04 denies passing any bowel movements since then but he does endorse passing gases. I discussed the case with ED doctor and accepted the admission for intractable abdominal pain status post lap christina with anticipated length of stay more than 2 midnights Intractable abdominal pain status post lap christina and stenting General surgery consultation N.p.o. after midnight IV fluid hydration with normal saline 130 cc/h Pain control with Dilaudid White count 7.5 unremarkable Hemoglobin 13.2 unremarkable Lactic acid elevated slightly 2.3 upon repeat and follow-up trended down to 2.7 Troponins negative Urine analysis unremarkable Paroxysmal A-fib Eliquis on hold pending general surgery evaluation if no surgical plans consider resuming Eliquis Hypertension Resume home medications valsartan, metoprolol Renal function unremarkable sodium of 141 potassium 4.5 BUN 13 creatinine 1.11 Full code DVT prophylaxis heparin subcu 3 times daily GI prophylaxis continue with famotidine
[2024-06-13] MEDS: HYDROmorphone 1 MG/ML 1 ML SYRINGE IVP PRN ×2 (01:02→05:21)
[2024-06-13] MEDS: MELATONIN 5 MG TABLET PO STA (01:29)
[2024-06-13 01:32] VITALS: BP 124/78; PULSE 61; TEMP 97.9
[2024-06-13] MEDS ORDERED: HEPARIN SODIUM,PORCINE 5,000 UNIT/ML 1 ML VIAL SQ SCH (08:00)
[2024-06-13] MEDS ORDERED: clonazePAM 1 MG TAB ONE ×3 (08:05→22:19)
[2024-06-13] MEDS ORDERED: PANTOPRAZOLE 40 MG TABLET PO ONE (08:05)
[2024-06-13] MEDS ORDERED: FAMOTIDINE 20 MG TAB ONE (08:05)
[2024-06-13] MEDS ORDERED: GABAPENTIN 400 MG CAP ONE ×3 (08:05→22:19)
[2024-06-13] MEDS ORDERED: HEPARIN SODIUM,PORCINE 5,000 UNIT/ML 1 ML VIAL ONE ×3 (08:05→22:20)
[2024-06-13] MEDS ORDERED: HYDROmorphone 1 MG/ML 1 ML SYRINGE ONE ×5 (08:06→22:19)
[2024-06-13] MEDS ORDERED: METOPROLOL TARTRATE 25 MG TAB ONE ×2 (08:07→22:19)
[2024-06-13] MEDS ORDERED: PANTOPRAZOLE 40 MG TABLET PO SCH (09:00)
[2024-06-13] MEDS ORDERED: VALSARTAN 160 MG TAB PO SCH (09:00)
[2024-06-13] MEDS ORDERED: FAMOTIDINE 20 MG TAB PO SCH (09:00)
[2024-06-13] MEDS ORDERED: PANTOPRAZOLE 40 MG/10 ML VIAL IV SCH (09:00)
[2024-06-13] MEDS ORDERED: ALBUTEROL NEBULIZED 2.5 MG/3 ML INHALATION ONE (19:39)
[2024-06-13] MEDS ORDERED: ATORVASTATIN 40 MG TAB PO SCH (21:00)
[2024-06-13] MEDS ORDERED: ATORVASTATIN 40 MG TAB ONE (22:19)
[2024-06-14] MEDS ORDERED: HYDROmorphone 1 MG/ML 1 ML SYRINGE ONE ×5 (02:30→21:09)
[2024-06-14] MEDS ORDERED: PANTOPRAZOLE 40 MG TABLET PO ONE (09:44)
[2024-06-14] MEDS ORDERED: PANTOPRAZOLE 40 MG/10 ML VIAL ONE (09:44)
[2024-06-14] MEDS ORDERED: HEPARIN SODIUM,PORCINE 5,000 UNIT/ML 1 ML VIAL ONE ×3 (09:44→22:16)
[2024-06-14] MEDS ORDERED: FAMOTIDINE 20 MG TAB ONE (09:44)
[2024-06-14] MEDS ORDERED: METOPROLOL TARTRATE 25 MG TAB ONE ×2 (09:44→20:24)
[2024-06-14] MEDS ORDERED: clonazePAM 1 MG TAB ONE ×3 (09:45→22:19)
[2024-06-14] MEDS ORDERED: GABAPENTIN 400 MG CAP ONE ×3 (09:45→22:19)
[2024-06-14] MEDS ORDERED: ALBUTEROL NEBULIZED 2.5 MG/3 ML INHALATION ONE (20:11)
[2024-06-14] MEDS ORDERED: ATORVASTATIN 40 MG TAB ONE (20:25)
[2024-06-14] MEDS ORDERED: APIXABAN 5 MG TAB ONE (20:26)
[2024-06-14] MEDS ORDERED: LACTULOSE 20 GM/30 ML CUP ONE ×2 (20:26)
[2024-06-15] MEDS ORDERED: HYDROmorphone 1 MG/ML 1 ML SYRINGE ONE ×5 (00:03→15:31)
[2024-06-15] MEDS ORDERED: PANTOPRAZOLE 40 MG TABLET PO ONE (08:38)
[2024-06-15] MEDS ORDERED: FAMOTIDINE 20 MG TAB ONE (08:38)
[2024-06-15] MEDS ORDERED: HEPARIN SODIUM,PORCINE 5,000 UNIT/ML 1 ML VIAL ONE ×3 (08:38→23:34)
[2024-06-15] MEDS ORDERED: clonazePAM 1 MG TAB ONE ×3 (08:39→19:40)
[2024-06-15] MEDS ORDERED: GABAPENTIN 400 MG CAP ONE ×3 (08:39→19:41)
[2024-06-15] MEDS ORDERED: ASPIRIN 325 MG TAB ONE (10:00)
[2024-06-15] MEDS ORDERED: ATORVASTATIN 80 MG TAB ONE (10:00)
[2024-06-15] MEDS ORDERED: HEPARIN SODIUM 1,000 UN/ML (10ML VL) ONE ×2 (10:24)
[2024-06-15] MEDS ORDERED: MIDAZOLAM 2 MG/2 ML VIAL ONE ×3 (10:24→10:37)
[2024-06-15] MEDS ORDERED: fentaNYL (PF) 50 MCG/ML 2 ML AMP ONE ×4 (10:24→10:38)
[2024-06-15] MEDS: IOPAMIDOL-370 100ML BTL INJ ONE (10:40)
[2024-06-15] MEDS ORDERED: PIPERACILLIN-TAZOBACTAM 3.375 GM VIAL ONE ×2 (16:32→23:34)
[2024-06-15] MEDS ORDERED: HYDROcodone/APAP 10-325MG 1 EACH TAB ONE ×4 (18:59→23:46)
[2024-06-15] MEDS ORDERED: ATORVASTATIN 40 MG TAB ONE (19:39)
[2024-06-15] MEDS ORDERED: METOPROLOL TARTRATE 25 MG TAB ONE (19:39)
[2024-06-15] MEDS ORDERED: APIXABAN 5 MG TAB ONE (19:40)
[2024-06-15] MEDS ORDERED: LACTULOSE 20 GM/30 ML CUP ONE ×2 (19:41)
[2024-06-15] MEDS ORDERED: SODIUM CHLORIDE 0.9% 1,000 ML BAG ONE (23:59)
[2024-06-16] MEDS ORDERED: HYDROmorphone 0.5 MG/0.5 ML SYRINGE ONE ×4 (02:19→08:37)
[2024-06-16] MEDS ORDERED: HYDROcodone/APAP 10-325MG 1 EACH TAB ONE ×4 (06:39→10:35)
[2024-06-16] MEDS ORDERED: MAGNESIUM OXIDE 400 MG TAB ONE (10:10)
[2024-06-16] MEDS ORDERED: CYCLOBENZAPRINE 10 MG TAB ONE (10:10)
[2024-06-16] MEDS ORDERED: LACTULOSE 20 GM/30 ML CUP ONE ×2 (10:14)
[2024-06-16] MEDS ORDERED: FAMOTIDINE 20 MG TAB ONE (10:14)
[2024-06-16] MEDS ORDERED: HEPARIN SODIUM,PORCINE 5,000 UNIT/ML 1 ML VIAL ONE (10:14)
[2024-06-16] MEDS ORDERED: bisacodyL 5 MG TABLET.DR PO ONE (10:14)
[2024-06-16] MEDS ORDERED: APIXABAN 5 MG TAB ONE (10:14)
[2024-06-16] MEDS ORDERED: METOPROLOL TARTRATE 25 MG TAB ONE (10:15)
[2024-06-16] MEDS ORDERED: PIPERACILLIN-TAZOBACTAM 3.375 GM VIAL ONE (10:16)
[2024-06-16] MEDS ORDERED: PANTOPRAZOLE 40 MG TABLET PO ONE (10:16)
[2024-06-16] MEDS ORDERED: GABAPENTIN 300 MG CAP ONE (10:21)
[2024-06-16] MEDS ORDERED: clonazePAM 1 MG TAB ONE (10:21)
== END 2024-06-16 14:40 | disposition home or self-care (01) ==
LOC: EC 13:22 → 6NMEDSUR 17:46
PROVIDERS: ADMIT Internal Medicine; ATTEND Internal Medicine
DX: R10.11 Right upper quadrant pain (principal); G89.18 Other acute postprocedural pain; R53.1 Weakness; R07.9 Chest pain, unspecified; F32.A Depression, unspecified; I48.0 Paroxysmal atrial fibrillation; K21.9 Gastro-esophageal reflux disease without esophagitis; I10 Essential (primary) hypertension; G47.30 Sleep apnea, unspecified; J45.909 Unspecified asthma, uncomplicated; I25.2 Old myocardial infarction; E66.9 Obesity, unspecified; Z68.39 Body mass index [BMI] 39.0-39.9, adult; Z86.718 Personal history of other venous thrombosis and embolism; Z90.49 Acquired absence of other specified parts of digestive tract; Z98.84 Bariatric surgery status; Z79.01 Long term (current) use of anticoagulants; Z79.82 Long term (current) use of aspirin; Z79.899 Other long term (current) drug therapy
CPT/HCPCS: 36415; 80053; 83605; 83690; 84484; 85025; 81003; 74177; J2270; J2405; J1170; Q9967; 80048; 83735; 84100; 93306; 93458; 96361; 96374; 96375; 96376; 99285

== ENCOUNTER 2024-08-16 10:34 | Day surgery (SDC) | payer OTHER ==
[2024-08-16 11:16] VITALS: TEMP 97.5
[2024-08-16] MEDS: LACTATED RINGERS 1,000 ML IV SCH (11:20)
[2024-08-16] MEDS: IV FLUID CONTINUATION 1,000 ML IV ONE ×2 (11:21→12:28)
[2024-08-16] MEDS ORDERED: PROPOFOL 10 MG/ML 20 ML VIAL IV ONE (12:09)
[2024-08-16] MEDS ORDERED: LIDOCAINE 1% INJ 10MG/ML (20 ML MDV) ONE (12:09)
--- NOTE | 2024-08-16 12:20 | P.PCN ---
Date of Procedure: 08/16/24 Procedure(s) Performed: BRIEF HISTORY: Patient is a 44-year-old, pleasant, white male scheduled for an EGD for CBD stent t removal.. He had a gallbladder surgery in May of this year that was complicated by a bile leak for which he underwent ERCP with CBD stent placement on June 10, 2024.. PROCEDURE PERFORMED: Esophagogastroduodenoscopy with CBD stent removal. PREOPERATIVE DIAGNOSIS: History of bile leak status post ERCP with CBD stent placement June 2024. IV sedation per anesthesia. PROCEDURE: After informed consent was obtained, the patient was brought into the endoscopy unit. IV sedation was administered by Anesthesia under continuous monitoring. Initially the Olympus GIF-140 video endoscope was inserted into the mouth. Esophagus intubated without any difficulty. It was gradually advanced into the stomach and duodenum and carefully examined. The bulb and the second part of the duodenum appeared normal. The plastic CBD stent was visible which was held by the snare that was passed with the scope. It was gradually withdrawn along with the scope. The scope at this time was withdrawn to the stomach, adequately insufflated with air, and upon careful examination, mucosa of the antrum, body, cardia and the fundus appeared normal. The scope was then withdrawn into the esophagus. The GE junction was located at 39 cm from the incisors. The esophagus appeared normal. There were no erosions or ulcerations seen and the patient tolerated the procedure well. IMPRESSION: 1. Successful removal of the CBD stent as described above. 2. Mild gastritis. RECOMMENDATIONS: The findings of this examination were discussed with the patient as well as his family.. He was advised to resume Eliquis today. Follow-up with the office as needed.
[2024-08-16 12:47] VITALS: BP 109/57; PULSE 69; RESP 16
== END 2024-08-16 13:09 | disposition home or self-care (01) ==
LOC: ORWHC2ENDO 10:34
PROVIDERS: ATTEND Internal Medicine Gastroenterology
DX: K83.3 Fistula of bile duct
CPT/HCPCS: 44799

== ENCOUNTER 2024-08-27 18:19 | Emergency (ER) | payer OTHER ==
[2024-08-27 18:30] VITALS: RESP 18
--- NOTE | 2024-08-27 19:32 | ED ---
Abdominal Pain HPI - General Chief Complaint: Abdominal Pain Stated Complaint: Bowel issue Time Seen by Provider: 08/27/24 18:33 Source: patient Mode of arrival: ambulatory Limitations: no limitations - History of Present Illness Initial Comments: 44-year-old male presenting with chief complaint of constipation. He reports no bowel movement for the last 2 weeks. He is on chronic pain medication. He is reporting diffuse abdominal discomfort and bloating. At times he feels like the pressure is pushing up into his chest. He was seen at his PCPs office 2 days ago and told to come to the ER as they exhausted other options in the office, however the patient did not come until today. He had 1 episode of vomiting 4 days ago. He is still eating and drinking, states that over the past 4 days his appetite is somewhat decreased, but prior to that he was eating and drinking normally. No fevers or chills. No difficulty breathing. History of bariatric surgery and cholecystectomy. - Related Data Home Medications Medication Instructions Recorded Confirmed Omeprazole 40 mg PO BID 07/10/23 08/12/24 Cyclobenzaprine HCl 10 mg PO TID PRN 11/18/23 08/12/24 Gabapentin [Neurontin] 400 mg PO TID 11/18/23 08/12/24 Valsartan 320 mg PO DAILY 11/18/23 08/12/24 Ferrous Sulfate [Iron (65 MG 325 mg PO BID 11/30/23 08/12/24 Elemental)] HYDROcodone/APAP 10-325MG [[place] 1 tab PO QID PRN 11/30/23 08/12/24 10-325] EPINEPHrine (Auto Inject) [Epipen] 0.3 mg IM ONCE PRN 01/16/24 08/12/24 clonazePAM [KlonoPIN] 1 mg PO TID 01/16/24 08/16/24 Apixaban [Eliquis] 5 mg PO BID 06/03/24 08/16/24 Atorvastatin [Lipitor] 40 mg PO HS 06/08/24 08/12/24 Lactulose [Constulose] 30 gm PO BID 06/08/24 08/12/24 Loratadine 10 mg PO DAILY 06/08/24 08/12/24 Metoprolol Tartrate [Lopressor] 25 mg PO BID 06/08/24 08/16/24 Previous Rx's Medication Instructions Recorded Aspirin 81 mg PO DAILY 30 Days #30 tab 02/10/24 Acetaminophen Tab [Tylenol Tab] 1,000 mg PO Q6HR PRN #30 tablet 06/03/24 Docusate [Colace] 100 mg PO BID #60 capsule 07/27/24 Allergies Allergy/AdvReac Type Severity Reaction Status Date / Time No Known Allergies Allergy Verified 08/27/24 18:25 Review of Systems ROS Statement: Those systems with pertinent positive or pertinent negative responses have been documented in the HPI. ROS Other: All systems not noted in ROS Statement are negative. Past Medical History Past Medical History: Atrial Fibrillation, Blood Disorder, Deep Vein Thrombosis (DVT), GERD/Reflux, Hearing Disorder / Deafness, Hypertension, Myocardial Infarction (NC), Osteoarthritis (OA), Sleep Apnea/CPAP/BIPAP Additional Past Medical History / Comment(s): DVT X 3- LAST TIME 2012- LT LEG, LUMBAR DDD- . HAS HX MTHFR GENE MUTATION-POSITIVE FOR HETEROZYGOUS PER DR. FRANCISCO'S OFFICE, doesn't not use CPAP, occasional swelling left lower leg Last Myocardial Infarction Date:: 09/2021 History of Any Multi-Drug Resistant Organisms: None Reported Past Surgical History: Bariatric Surgery, Cardiac Ablation, Cholecystectomy, Heart Catheterization, Joint Replacement Additional Past Surgical History / Comment(s): LEFT KNEE REPLACEMENT, LT INDEX JOINT REPLACEMENT, PAIN CLINIC PROCEDURES, COLONOSCOPY, EGD. Gastric bypass 07-06-23 Past Anesthesia/Blood Transfusion Reactions: Previous Problems w/ Anesthesia, Family History of Problems w/ Anesthesia, Motion Sickness Additional Past Anesthesia/Blood Transfusion Reaction / Comment(s): HARD TO PUT TO SLEEP-(pt and father)-needs more than normal. no hx blood transfusion Past Psychological History: Depression Smoking Status: Never smoker - Past Family History Sister(s) Family Medical History: Cancer Additional Family Medical History / Comment(s): Skin cancer. Mother History Unknown: Yes General Exam Limitations: no limitations General appearance: alert, in no apparent distress Head exam: Present: atraumatic, normocephalic, normal inspection Eye exam: Present: normal appearance, EOMI Neck exam: Present: normal inspection. Absent: meningismus Respiratory exam: Absent: respiratory distress Cardiovascular Exam: Present: regular rate GI/Abdominal exam: Present: distended, tenderness (diffuse). Absent: guarding, rebound, rigid Neurological exam: Present: alert, oriented X3 Psychiatric exam: Present: normal affect, normal mood Skin exam: Present: warm, dry Course Vital Signs 08/27/24 08/28/24 18:25 01:55 Temperature 97.4 F L 97.8 F Pulse Rate 86 91 Respiratory 18 18 Rate Blood Pressure 103/66 115/78 O2 Sat by Pulse 97 98 Oximetry Medical Decision Making - Medical Decision Making Was pt. sent in by a medical professional or institution (, PA, FABRICATING MACHINE OPERATOR, urgent care, hospital, or fpc...) When possible be specific @ -No Did you speak to anyone other than the patient for history (EMS, parent, family, police, friend...)? What history was obtained from this source @ -No Did you review nursing and triage notes (agree or disagree)? Why? @ -I reviewed and agree with nursing and triage notes Were old charts reviewed (outside hosp., previous admission, EMS record, old EKG, old radiological studies, urgent care reports/EKG's, fpc records)? Report findings @ -No old charts were reviewed Differential Diagnosis (chest pain, altered mental status, abdominal pain women, abdominal pain men, vaginal bleeding, weakness, fever, dyspnea, syncope, headache, dizziness, GI bleed, back pain, seizure, CVA, palpatations, mental health, musculoskeletal)? @ -MDM Differential Abdominal Pain Men: Appendicitis, cholecystitis, diverticulosis, ischemic bowel, pancreatitis, hepatitis, UTI, gastroenteritis, AAA, incarcerated hernia, bowel obstruction, constipation, inflammatory bowel, hepatitis, peptic ulcer disease, splenic infarction, perforated viscus, testicular torsion... This is not meant to be an all-inclusive list EKG interpreted by me (3pts min.). @ -As above X-rays interpreted by me (1pt min.). @ -KUB shows multiple air-fluid levels throughout the abdomen correlate for obstruction versus ileus. Feces is seen throughout the rectum. CT interpreted by me (1pt min.). @ -CT shows large stool burden throughout the colon. Otherwise no evidence for acute abdominal process. No evidence for small bowel or large bowel obstruction U/S interpreted by me (1pt. min.). @ -None done What testing was considered but not performed or refused? (CT, X-rays, U/S, labs)? Why? @ -None What meds were considered but not given or refused? Why? @ -None Did you discuss the management of the patient with other professionals (professionals i.e. DrSteve, PA, FABRICATING MACHINE OPERATOR, lab, RT, psych nurse, social and human services assistant, hand booked folder and stitcher, teacher, logistics supply officer, rehabilitation case coordinator)? Give summary @ -No Was smoking cessation discussed for >3mins.? @ -No Was critical care preformed (if so, how long)? @ -No Were there social determinants of health that impacted care today? How? (Homelessness, low income, unemployed, alcoholism, drug addiction, trans portation, low edu. Level, literacy, decrease access to med. care, fdc, rehab)? @ -No Was there de-escalation of care discussed even if they declined (Discuss DNR or withdrawal of care, Hospice)? DNR status @ -No What co-morbidities impacted this encounter? (DM, HTN, Smoking, COPD, CAD, Cancer, CVA, ARF, Chemo, Hep., AIDS, mental health diagnosis, sleep apnea, morbid obesity)? @ -None Was patient admitted / discharged? Hospital course, mention meds given and route, prescriptions, significant lab abnormalities, going to OR and other pertinent info. @ -44-year-old male presenting with chief complaint of constipation. No bowel movement in 2 weeks. On exam his abdomen is distended. KUB showed air-fluid levels concerning for possible obstruction or ileus, CT shows large stool burden with no evidence of obstruction. BUN 21 creatinine 1.35, patient is receiving IV fluids. Patient is requesting pain medication, I explained to the patient that his chronic pain medication is the cause of his constipation, and extra doses here in the ER will not help long-term with his issue. Patient was given an enema, no significant relief. I attempted a disimpaction but was unable to reach the stool burden. Patient is given GoLytely to use at home. He is instructed to drink 8 ounces of the solution every 3-4 hours until constipation is resolved. Discharged. Follow-up with PCP. Report back to ER with any new or worsening symptoms. Discussed return parameters and answered all questions. Patient conveyed verbal understanding and agreed to the plan. I discussed this case in detail with my attending Dr. Parada Undiagnosed new problem with uncertain prognosis? @ -No Drug Therapy requiring intensive monitoring for toxicity (Heparin, Nitro, Insulin, Cardizem)? @ -No Were any procedures done? @ -No Diagnosis/symptom? @ -Constipation Acute, or Chronic, or Acute on Chronic? @ -Acute Uncomplicated (without systemic symptoms) or Complicated (systemic symptoms)? @ -Uncomplicated Side effects of treatment? @ -No Exacerbation, Progression, or Severe Exacerbation? @ -No Poses a threat to life or bodily function? How? (Chest pain, USA, NC, pneumonia, PE, COPD, DKA, ARF, appy, cholecystitis, CVA, Diverticulitis, Homicidal, Suicidal, threat to staff... and all critical care pts) @ -Unlikely - Lab Data Result diagrams: 08/27/24 20:29 08/27/24 20:29 Lab Results 08/27/24 08/27/24 08/27/24 Range/Units 20:29 20: 20:29 WBC 8.8 (3.8-10.6) k/uL RBC 4.77 (4.30-5.90) m/uL Hgb 12.5 L (13.0-17.5) gm/dL Hct 40.7 (39.0-53.0) % MCV 85.3 (80.0-100.0) fL MCH 26.3 (25.0-35.0) pg MCHC 30.8 L (31.0-37.0) g/dL RDW 14.7 (11.5-15.5) % Plt Count 310 (150-450) k/uL MPV 6.7 Neutrophils % 58 % Lymphocytes % 31 % Monocytes % 6 % Eosinophils % 3 % Basophils % 0 % Neutrophils # 5.2 (1.3-7.7) k/uL Lymphocytes # 2.7 (1.0-4.8) k/uL Monocytes # 0.5 (0-1.0) k/uL Eosinophils # 0.3 (0-0.7) k/uL Basophils # 0.0 (0-0.2) k/uL Hypochromasia Marked Sodium 135 L (137-145) mmol/L Potassium 3.5 (3.5-5.1) mmol/L Chloride 100 (98-107) mmol/L Carbon Dioxide 31 H (22-30) mmol/L Anion Gap 4 mmol/L BUN 21 H (9-20) mg/dL Creatinine 1.35 H (0.66-1.25) mg/dL Est GFR (CKD-EPI)AfAm 73 (>60 ml/min/1.73 sqM) Est GFR (CKD-EPI)NonAf 63 (>60 ml/min/1.73 sqM) Glucose 89 (74-99) mg/dL Plasma Lactic Acid [place] 0.9 (0.7-2.0) mmol/L Calcium 8.5 (8.4-10.2) mg/dL Total Bilirubin 0.4 (0.2-1.3) mg/dL AST 15 L (17-59) U/L ALT 15 (4-49) U/L Alkaline Phosphatase 82 (38-126) U/L Total Protein 5.7 L (6.3-8.2) g/dL Albumin 3.5 (3.5-5.0) g/dL Amylase 34 (30-110) U/L Lipase 45 (23-300) U/L Disposition Clinical Impression: Constipation Disposition: HOME SELF-CARE Condition: Good Instructions (If sedation given, give patient instructions): Constipation (ED), High Fiber Diet (ED) Additional Instructions: Follow-up with PCP. Report back to ER with any new or worsening symptoms. Drink 8 ounces of GoLytely solution every 3-4 hours as needed until constipation resolves. You want to be sure that you will be close to a bathroom during the entirety of this Is patient prescribed a controlled substance at d/c from ED?: No Referrals: Aden Diaz MD [Primary Care Provider] - 1-2 days Time of Disposition: 01:06
[2024-08-27] MEDS: KETOROLAC 15 MG/ML 1 ML VIAL IM STA (20:06)
--- NOTE | 2024-08-27 20:06 | XR ---
EXAMINATION TYPE: XR KUB DATE OF EXAM: 08/27/2024 7:47 PM CLINICAL INDICATION: Male, 44 years old with history of costipation; [facility] COMPARISON: Constipation 04/22/2011. TECHNIQUE: One radiographic view of the abdomen was obtained. FINDINGS: There is air-fluid levels throughout the abdomen. No abnormal calcifications. There is fece s seen within the descending colon and rectum. IMPRESSION: Multiple air-fluid levels throughout the abdomen correlate for obstruction versus ileus. Feces is see n throughout the rectum. [facility], Workstation: [id number], 08/27/2024 8:03 PM
[2024-08-27] MEDS: SODIUM CHLORIDE 0.9% 1,000 ML IV STA (20:30)
[2024-08-27 20:47] LABS: Basophils % (A) 0 %; Eosinophils # (A) 0.3 k/uL (0-0.7); Eosinophils % (A) 3 %; HCT 40.7 % (39.0-53.0); HGB 12.5 gm/dL (13.0-17.5); Hypochromasia Marked; Lymphocytes # (A) 2.7 k/uL (1.0-4.8); Lymphocytes % (A) 31 %; MCH 26.3 pg (25.0-35.0); MCHC 30.8 g/dL (31.0-37.0); MCV 85.3 fL (80.0-100.0); Mean Platelet Volume 6.7; Monocytes # (A) 0.5 k/uL (0-1.0); Monocytes % (A) 6 %; Neutrophils # (A) 5.2 k/uL (1.3-7.7); Neutrophils % (A) 58 %; Platelet Count 310 k/uL (150-450); RBC 4.77 m/uL (4.30-5.90); RDW 14.7 % (11.5-15.5); WBC 8.8 k/uL (3.8-10.6)
[2024-08-27] MEDS: HYDROmorphone 1 MG/ML 1 ML SYRINGE IVP STA (20:54)
[2024-08-27 21:06] LABS: ALT 15 U/L (4-49); AST 15 U/L (17-59); African American GFR (CKD) 73 (>60 ml/min/1.73 sqM); Albumin 3.5 g/dL (3.5-5.0); Alkaline Phosphatase 82 U/L (38-126); Amylase 34 U/L (30-110); Anion Gap 4 mmol/L; Blood Urea Nitrogen 21 mg/dL (9-20); Calcium 8.5 mg/dL (8.4-10.2); Carbon Dioxide 31 mmol/L (22-30); Chloride 100 mmol/L (98-107); Glucose 89 mg/dL (74-99); Lipase 45 U/L (23-300); Non-African American GFR(CKD) 63 (>60 ml/min/1.73 sqM); Potassium 3.5 mmol/L (3.5-5.1); Sodium 135 mmol/L (137-145); Total Bilirubin 0.4 mg/dL (0.2-1.3); Total Protein 5.7 g/dL (6.3-8.2)
--- NOTE | 2024-08-27 21:27 | CT ---
EXAMINATION TYPE: CT abdomen pelvis w con CT DLP: 2387 mGycm, Automated exposure control for dose reduction was used. DATE OF EXAM: 08/27/2024 9:01 PM COMPARISON: 06/12/2024 CLINICAL INDICATION: Male, 44 years old with history of abdominal pain, ileus versus obstruction; abd ominal pain, ileus versus obstruction TECHNIQUE: Axial CT abdomen pelvis w con;Sagittal and coronal reformats were created on a separate w orkstation. Contrast used:100 ml mL of Isovue 300 with IV Contrast, (none if empty) Oral contrast used: without Oral Contrast (none if empty) FINDINGS: LOWER CHEST: Unremarkable ABDOMEN LIVER: Unremarkable GALLBLADDER AND BILE DUCTS: The gallbladder is surgically absent. PANCREAS: Unremarkable. SPLEEN: Unremarkable. ADRENAL GLANDS: Unremarkable. KIDNEYS AND URETERS: No evidence of hydronephrosis or renal calculus. The ureters are unremarkable. PELVIS BLADDER: Unremarkable REPRODUCTIVE: Unremarkable. ABDOMEN & PELVIS STOMACH AND BOWEL: No evidence of bowel obstruction. Postsurgical changes of gastric lumen. Large amadou unt stool throughout colon. No evidence for large bowel obstruction. Feces extends to the rectum. PERITONEUM/RETROPERITONEUM: No evidence of pneumoperitoneum or free fluid. VASCULATURE: No evidence of aortic aneurysm. MUSCULOSKELETAL: No acute osseous abnormalities LYMPH NODES: No gross evidence for lymphadenopathy. SOFT TISSUE/ABDOMINAL WALL: Unremarkable IMPRESSION: Large stool burden throughout the colon. Otherwise no evidence for acute abdominal process. No eviden ce for small bowel or large bowel obstruction. [facility], , 08/27/2024 9:24 PM
[2024-08-27] MEDS: DICYCLOMINE 20 MG TAB PO STA (23:27)
[2024-08-28] MEDS: PEG 3350 (236 GM/BTL) + LYTES 4,000 ML BOTTLE PO ONE (01:52)
[2024-08-28 01:57] VITALS: BP 115/78; PULSE 91; TEMP 97.8
== END 2024-08-28 01:56 | disposition home or self-care (01) ==
LOC: EC 18:19
CPT/HCPCS: 36415; 74018; 74177; 80053; 82150; 83605; 83690; 85025; 96361; 96374; 99285

== ENCOUNTER → 2024-11-15 | Day surgery (SDC) | payer OTHER ==
[~2024-11-15] MED LIST changes: +BENZOCAINE SPRAY 1 CAN TOPICAL PRN; -LIDOCAINE 1% (10MG/ML) FOR IV START INTRADERMA PRN; -MIDAZOLAM 2 MG/2 ML VIAL IV PRN; +SODIUM CHLORIDE 0.9% 500 ML 500 ML IV SCH; -fentaNYL (PF) 50 MCG/ML 2 ML AMP IVP PRN
[2024-11-15 11:26] VITALS: TEMP 97.2
[2024-11-15] MEDS: IV FLUID CONTINUATION 1,000 ML IV ONE (11:39)
[2024-11-15] MEDS: BENZOCAINE SPRAY 1 EACH MM ONE ×2 (11:59→12:05)
[2024-11-15] MEDS: fentaNYL (PF) 50 MCG/ML 2 ML AMP IVP ONE ×2 (12:06→12:12)
[2024-11-15] MEDS: MIDAZOLAM 2 MG/2 ML VIAL IVP ONE ×3 (12:06→12:14)
[2024-11-15] MEDS: fentaNYL (PF) 50 MCG/ML 5 ML AMP IVP PRN (12:09)
[2024-11-15] MEDS: MIDAZOLAM 2 MG/2 ML VIAL IV PRN (12:12)
--- NOTE | 2024-11-15 13:19 | CA ---
Transesophageal Echo Report Jose Juan Crisostomo Age: 44 Gender: M : 1980 Exam Date: 11/15/2024 11:56 Exam Location: [facility] Ht (in): Wt (lb): Ordering Physician: Referring Physician: Technologist: Jaimee Petty RDCS Fellow: Procedure CPT: Indications: R/O VALVE DX/CLOT ICD-9 Codes: Technical Quality: MEASUREMENTS (Male / Female) Normal Values Contrast Medications Complications Proc. Components FINDINGS Left Ventricle Right Ventricle Right Atrium Left Atrium LA Appendage IA Septum Mitral Valve Aortic Valve Tricuspid Valve Pulmonic Valve Pericardium Aorta CONCLUSIONS Previewed by: Dr French Malone (Electronically Signed) Final Date: 15 November 2024 13:18
[2024-11-15 16:25] VITALS: RESP 16
[2024-11-15 16:27] VITALS: BP 113/66; PULSE 64
== END ==
LOC: CATHCVL 10:52
PROVIDERS: ATTEND Internal Medicine
DX: T82.867A Thrombosis due to cardiac prosthetic devices, implants and grafts, initial encounter (principal)
CPT/HCPCS: 93312; 93320; 93325; J2250; J3010 ×2

== ENCOUNTER 2024-11-17 12:44 | Observation (INO) | payer OTHER ==
[2024-11-17] MEDS: SODIUM CHLORIDE 0.9% 500 ML 500 ML IV STA (13:15)
[2024-11-17 13:20] LABS: Basophils % (A) 0 %; Eosinophils # (A) 0.3 k/uL (0-0.7); Eosinophils % (A) 4 %; HCT 41.1 % (39.0-53.0); HGB 13.5 gm/dL (13.0-17.5); Lymphocytes # (A) 1.9 k/uL (1.0-4.8); Lymphocytes % (A) 25 %; MCH 27.1 pg (25.0-35.0); MCHC 32.8 g/dL (31.0-37.0); MCV 82.6 fL (80.0-100.0); Mean Platelet Volume 6.9; Monocytes # (A) 0.4 k/uL (0-1.0); Monocytes % (A) 5 %; Neutrophils # (A) 4.9 k/uL (1.3-7.7); Neutrophils % (A) 65 %; Platelet Count 225 k/uL (150-450); RBC 4.98 m/uL (4.30-5.90); RDW 14.4 % (11.5-15.5); WBC 7.5 k/uL (3.8-10.6)
--- NOTE | 2024-11-17 13:26 | ED ---
General Adult HPI - General Chief complaint: Neuro Symptoms/Deficit Stated complaint: DIZZY, NO MEMORY Time Seen by Provider: 11/17/24 12:54 Source: patient, RN notes reviewed, old records reviewed Mode of arrival: wheelchair Limitations: no limitations - History of Present Illness Initial comments: 44-year-old male with history of recent CVA with slurred speech right arm numbness and weakness and gait instability. Patient was seen at outside [facility] where he was treated, he states this was at [facility]. This was 3 weeks prior. Patient states he fell today striking his head and he believes this was due to weakness in both of his legs. He reports that it was not 1 leg or the other. He states that his speech had somewhat improved over the past 3 weeks. The history is limited in this patient as the exact sequence of events and timing of symptom onset and improvement is difficult to obtain. Patient is on Eliquis. - Related Data Home Medications Medication Instructions Recorded Confirmed Omeprazole 40 mg PO BID 07/10/23 11/15/24 Cyclobenzaprine HCl 10 mg PO TID PRN 11/18/23 11/15/24 Gabapentin [Neurontin] 400 mg PO TID 11/18/23 11/15/24 Valsartan 320 mg PO DAILY 11/18/23 11/15/24 Ferrous Sulfate [Iron (65 MG 325 mg PO BID 11/30/23 11/15/24 Elemental)] HYDROcodone/APAP 10-325MG [[place] 1 tab PO QID PRN 11/30/23 11/15/24 10-325] EPINEPHrine (Auto Inject) [Epipen] 0.3 mg IM ONCE PRN 01/16/24 11/15/24 clonazePAM [KlonoPIN] 1 mg PO TID 01/16/24 11/15/24 Apixaban [Eliquis] 5 mg PO BID 06/03/24 11/15/24 Atorvastatin [Lipitor] 40 mg PO HS 06/08/24 11/15/24 Lactulose [Constulose] 30 gm PO BID 06/08/24 11/15/24 Loratadine 10 mg PO DAILY 06/08/24 11/15/24 Metoprolol Tartrate [Lopressor] 25 mg PO BID 06/08/24 11/15/24 Previous Rx's Medication Instructions Recorded Aspirin 81 mg PO DAILY 30 Days #30 tab 02/10/24 Acetaminophen Tab [Tylenol Tab] 1,000 mg PO Q6HR PRN #30 tablet 06/03/24 Docusate [Colace] 100 mg PO BID #60 capsule 07/27/24 Allergies Allergy/AdvReac Type Severity Reaction Status Date / Time No Known Allergies Allergy Verified 11/17/24 12:48 Review of Systems ROS Statement: Those systems with pertinent positive or pertinent negative responses have been documented in the HPI. ROS Other: All systems not noted in ROS Statement are negative. Past Medical History Past Medical History: Atrial Fibrillation, Blood Disorder, Deep Vein Thrombosis (DVT), GERD/Reflux, Hearing Disorder / Deafness, Hypertension, Myocardial Infarction (NE), Osteoarthritis (OA), Sleep Apnea/CPAP/BIPAP Additional Past Medical History / Comment(s): DVT X 3- LAST TIME 2012- LT LEG, LUMBAR DDD- . HAS HX MTHFR GENE MUTATION-POSITIVE FOR HETEROZYGOUS PER DR. FRANCISCO'S OFFICE, doesn't not use CPAP, occasional swelling left lower leg Last Myocardial Infarction Date:: 09/2021 History of Any Multi-Drug Resistant Organisms: None Reported Past Surgical History: Bariatric Surgery, Cardiac Ablation, Cholecystectomy, Heart Catheterization, Joint Replacement Additional Past Surgical History / Comment(s): LEFT KNEE REPLACEMENT, LT INDEX JOINT REPLACEMENT, PAIN CLINIC PROCEDURES, COLONOSCOPY, EGD. Gastric bypass 07-06-23 Past Anesthesia/Blood Transfusion Reactions: Previous Problems w/ Anesthesia, Family History of Problems w/ Anesthesia, Motion Sickness Additional Past Anesthesia/Blood Transfusion Reaction / Comment(s): HARD TO PUT TO SLEEP-(pt and father)-needs more than normal. no hx blood transfusion Past Psychological History: Depression Smoking Status: Never smoker Past Alcohol Use History: Rare - Past Family History Sister(s) Family Medical History: Cancer Additional Family Medical History / Comment(s): Skin cancer. Mother History Unknown: Yes General Exam Limitations: altered mental status General appearance: alert, in no apparent distress Head exam: Present: atraumatic, normocephalic Eye exam: Present: normal appearance, PERRL Respiratory exam: Present: normal lung sounds bilaterally. Absent: respiratory distress, wheezes Cardiovascular Exam: Present: regular rate, normal rhythm GI/Abdominal exam: Present: soft. Absent: distended, tenderness, guarding Extremities exam: Present: normal inspection Neurological exam: Present: alert, motor sensory deficit (Mild dysarthria, weakness in all 4 extremities this does not appear to be localized) Skin exam: Present: warm, dry, intact. Absent: cyanosis, diaphoretic Course Vital Signs 11/17/24 11/17/24 12:49 13:19 Temperature 97.4 F L Pulse Rate 77 73 Respiratory 18 16 Rate Blood Pressure 101/70 99/65 O2 Sat by Pulse 99 97 Oximetry - Reevaluation(s) Reevaluation #1: 11/17/24 13:57 I was able to obtain part of the records from hospital stay 3 weeks ago which indicated the patient had presented with left-sided weakness, and slurred speech. Patient had CT CT angiography which were negative at that time. He has had previous TIA and CVAs in the past as well as history of pulmonary embolism. Medical Decision Making - Medical Decision Making Was pt. sent in by a medical professional or institution (, PA, HEAD OF HOUSEKEEPING, urgent c are, hospital, or custodial...) When possible be specific @ -No Did you speak to anyone other than the patient for history (EMS, parent, family, police, friend...)? What history was obtained from this source @ -No Did you review nursing and triage notes (agree or disagree)? Why? @ -I reviewed and agree with nursing and triage notes Were old charts reviewed (outside hosp., previous admission, EMS record, old EKG, old radiological studies, urgent care reports/EKG's, custodial records)? Report findings @ -No old charts were reviewed Differential CVA Ischemic stroke, hemorrhagic stroke, brain tumor, atypical migraine, Wernicke's encephalopathy, seizure, multiple sclerosis, meningitis, encephalitis, hypoglycemia, Guillain-Camacho, electrolytes disturbance, myasthenia gravis.... This is not meant to be an all-inclusive list EKG interpreted by me (3pts min.). @ -EKG: Sinus rhythm rate of 74, SC interval 139, QRS duration 104, QTc [address] segment elevation. X-rays interpreted by me (1pt min.). @ -None done CT interpreted by me (1pt min.). @ -[CT brain negative for intracranial hemorrhage or mass effect U/S interpreted by me (1pt. min.). @ -None done What testing was considered but not performed or refused? (CT, X-rays, U/S, labs)? Why? @ -None What meds were considered but not given or refused? Why? @ -None Did you discuss the management of the patient with other professionals (professionals i.e. , PA, HEAD OF HOUSEKEEPING, lab, RT, psych nurse, criminal justice social worker, tray worker, teacher, project control officer, egg caser)? Give summary @ -[facility] physician group Dr. Irizarry Was smoking cessation discussed for >3mins.? @ -No Was critical care preformed (if so, how long)? @ -No Were there social determinants of health that impacted care today? How? (Homelessness, low income, unemployed, alcoholism, drug addiction, transportation, low edu. Level, literacy, decrease access to med. care, fdc, rehab)? @ -No Was there de-escalation of care discussed even if they declined (Discuss DNR or withdrawal of care, Hospice)? DNR status @ -No What co-morbidities impacted this encounter? (DM, HTN, Smoking, COPD, CAD, Cancer, CVA, ARF, Chemo, Hep., AIDS, mental health diagnosis, sleep apnea, morb id obesity)? @ -[DVT, PE, previous CVA, recent CVA at outside hospital Was patient admitted / discharged? Hospital course, mention meds given and route, prescriptions, significant lab abnormalities, going to OR and other pertinent info. @ -44-year-old male presenting with fall, generalized weakness, slurred speech. Patient had recent evaluation at outside hospital for slurred speech and left-sided weakness. Part of the medical record was obtained from this visit 3 weeks ago at [facility]. Patient is on Eliquis and states that he fell due to leg weakness. There was no external signs of trauma. Head CT was negative for intracranial hemorrhage. Patient is in sinus rhythm. Patient has low normal blood pressure, no hypertension. Laboratory testing is unremarkable. Patient will be observed with neurology on consultation for evaluation of symptoms. Undiagnosed new problem with uncertain prognosis? @ -No Drug Therapy requiring intensive monitoring for toxicity (Heparin, Nitro, Insulin, Cardizem)? @ -No Were any procedures done? @ -No Diagnosis/symptom? @ -[Generalized weakness, recent CVA with slurred speech Acute, or Chronic, or Acute on Chronic? @ -Acute Uncomplicated (without systemic symptoms) or Complicated (systemic symptoms)? @ -Complicated Side effects of treatment? @ -No Exacerbation, Progression, or Severe Exacerbation? @ -No Poses a threat to life or bodily function? How? (Chest pain, [place], NE, pneumonia, PE, COPD, DKA, ARF, appy, cholecystitis, CVA, Diverticulitis, Homicidal, Suicidal, threat to staff... and all critical care pts) @ -Yes, CVA, seizure - Lab Data Result diagrams: 11/17/24 13:12 11/17/24 13:12 Lab Results 11/17/24 11/17/24 11/17/24 Range/Units 13:12 13:12 13:12 WBC 7.5 (3.8-10.6) k/uL RBC 4.98 (4.30-5.90) m/uL Hgb 13.5 (13.0-17.5) gm/dL Hct 41.1 (39.0-53.0) % MCV 82.6 (80.0-100.0) fL MCH 27.1 (25.0-35.0) pg MCHC 32.8 (31.0-37.0) g/dL RDW 14.4 (11.5-15.5) % Plt Count 225 (150-450) k/uL MPV 6.9 Neutrophils % 65 % Lymphocytes % 25 % Monocytes % 5 % Eosinophils % 4 % Basophils % 0 % Neutrophils # 4.9 (1.3-7.7) k/uL Lymphocytes # 1.9 (1.0-4.8) k/uL Monocytes # 0.4 (0-1.0) k/uL Eosinophils # 0.3 (0-0.7) k/uL Basophils # 0.0 (0-0.2) k/uL PT 11.3 (10.0-12.5) sec INR 1.0 (<1.2) APTT 23.2 (22.0-30.0) sec Sodium 133 L (137-145) mmol/L Potassium 4.8 (3.5-5.1) mmol/L Chloride 99 (98-107) mmol/L Carbon Dioxide 27 (22-30) mmol/L Anion Gap 7 mmol/L BUN 15 (9-20) mg/dL Creatinine 1.06 (0.66-1.25) mg/dL Est GFR (CKD-EPI)AfAm >90 (>60 ml/min/1.73 sqM) Est GFR (CKD-EPI)NonAf 85 (>60 ml/min/1.73 sqM) Glucose 80 (74-99) mg/dL Calcium 8.9 (8.4-10.2) mg/dL Total Bilirubin 0.7 (0.2-1.3) mg/dL AST 23 (17-59) U/L ALT 18 (4-49) U/L Alkaline Phosphatase 75 (38-126) U/L Creatine Kinase 55 (55-170) U/L Troponin I (0.000-0.034) ng/mL Total Protein 6.1 L (6.3-8.2) g/dL Albumin 3.9 (3.5-5.0) g/dL 11/17/24 Range/Units 13:12 WBC (3.8-10.6) k/uL RBC (4.30-5.90) m/uL Hgb (13.0-17.5) gm/dL Hct (39.0-53.0) % MCV (80.0-100.0) fL MCH (25.0-35.0) pg MCHC (31.0-37.0) g/dL RDW (11.5-15.5) % Plt Count (150-450) k/uL MPV Neutrophils % % Lymphocytes % % Monocytes % % Eosinophils % % Basophils % % Neutrophils # (1.3-7.7) k/uL Lymphocytes # (1.0-4.8) k/uL Monocytes # (0-1.0) k/uL Eosinophils # (0-0.7) k/uL Basophils # (0-0.2) k/uL PT (10.0-12.5) sec INR (<1.2) APTT (22.0-30.0) sec Sodium (137-145) mmol/L Potassium (3.5-5.1) mmol/L Chloride (98-107) mmol/L Carbon Dioxide (22-30) mmol/L Anion Gap mmol/L BUN (9-20) mg/dL Creatinine (0.66-1.25) mg/dL Est GFR (CKD-EPI)AfAm (>60 ml/min/1.73 sqM) Est GFR (CKD-EPI)NonAf (>60 ml/min/1.73 sqM) Glucose (74-99) mg/dL Calcium (8.4-10.2) mg/dL Total Bilirubin (0.2-1.3) mg/dL AST (17-59) U/L ALT (4-49) U/L Alkaline Phosphatase (38-126) U/L Creatine Kinase (55-170) U/L Troponin I <0.012 (0.000-0.034) ng/mL Total Protein (6.3-8.2) g/dL Albumin (3.5-5.0) g/dL Disposition Clinical Impression: Slurred speech, Generalized weakness Disposition: ADMITTED IP TO THIS HOSP Condition: Stable Is patient prescribed a controlled substance at d/c from ED?: No Referrals: Aden Diaz MD [Primary Care Provider] - 1-2 days Time of Disposition: 14:24
[2024-11-17 13:29] LABS: Partial Thromboplastin Time 23.2 sec (22.0-30.0); Prothrombin Time 11.3 sec (10.0-12.5)
[2024-11-17 13:30] LABS: ALT 18 U/L (4-49); African American GFR (CKD) >90 (>60 ml/min/1.73 sqM); Anion Gap 7 mmol/L; Blood Urea Nitrogen 15 mg/dL (9-20); Calcium 8.9 mg/dL (8.4-10.2); Carbon Dioxide 27 mmol/L (22-30); Chloride 99 mmol/L (98-107); Creatine Kinase 55 U/L (55-170); Glucose 80 mg/dL (74-99); Non-African American GFR(CKD) 85 (>60 ml/min/1.73 sqM); Sodium 133 mmol/L (137-145); Total Bilirubin 0.7 mg/dL (0.2-1.3)
[2024-11-17 13:51] LABS: Albumin 3.9 g/dL (3.5-5.0); Potassium 4.8 mmol/L (3.5-5.1); Total Protein 6.1 g/dL (6.3-8.2)
[2024-11-17 13:52] LABS: AST 23 U/L (17-59); Alkaline Phosphatase 75 U/L (38-126)
--- NOTE | 2024-11-17 13:54 | CT ---
EXAMINATION TYPE: CT brain wo con DATE OF EXAM: 11/17/2024 COMPARISON: 02/08/2024 CLINICAL INDICATION: Male, 44 years old with history of Neuro deficit, acute, stroke suspected; PHH, AMS CT DLP: 1126.4 mGycm Automated exposure control for dose reduction was used. Findings: The ventricles, basal cisterns and sulci over the convexities are within normal limits and there is n o mass effect or shift of midline structures. No abnormal density is seen throughout the brain parenchyma and there is no acute intra or extra-axia l hemorrhage. The posterior fossa including the brainstem, fourth ventricle and cerebellar pontine angles appear no rmal. Intraorbital contents appear normal and symmetric. Visualized paranasal sinuses and mastoid air cells are well aerated. The calvarium is intact. IMPRESSION: No significant abnormality seen. There is no acute bleed or mass effect. [facility], , 11/17/2024 1:51 PM
[2024-11-17] MEDS ORDERED: NALOXONE 0.4 MG/ML 1 ML VIAL IV PRN ×2 (14:24→17:16)
[2024-11-17] MEDS ORDERED: ACETAMINOPHEN TAB 500 MG TAB PO PRN (16:01)
--- NOTE | 2024-11-17 16:08 | P.HPIM ---
History of Present Illness H&P Date: 11/17/24 Patient is a 44-year-old male with medical history of CAD, A-fib s/p cardiac ablation on Eliquis, HTN, HLD, GERD, sleep apnea, MTHFR gene mutation, TIA, PILY not using CPAP as prescribed, chronic swelling of the left lower extremity, history of DVT, history of gastric bypass 06/2023, cholecystectomy 05/2024, recent admission at [facility] for CVA with slurred speech and right arm numbness, weakness, gait instability, who presented today after a fall. Patient struck his head, he believes that that was due to bilateral lower extremity weakness. Patient is a poor historian, he does not remember what side of the brain was affected by stroke. To me he reports that he had whole body weakness and numbness, left eye blurred vision, symptoms are gone now, no particular limb weakness or sensation deficit noticed, he thinks that his speech is actually better now. He admits having chronic lower back pain that is now flaring up, he requests pain medications, specifically Dilaudid. He states that the pain radiates to his left lower extremity. He was able to ambulate today, but noted back pain. There is DREW documented as a 11/15/2024, no full report available, type. The EF was 50 to 55%, no PFO ED course: Patient was afebrile on admission, heart rate in 70s, BP 101/78, satting well on room air. Blood work: Unremarkable CBC, BMP with mild hyponatremia 133, otherwise unremarkable. EKG showed sinus rhythm, no ST elevation, depression. CT brain with no acute abnormalities. Patient admitted under observation status to our service for further evaluation of fall, neurology consult Pertinent positives and negatives as discussed in HPI, a complete review of systems was performed and all other systems are negative. Patient seen and examined at bedside. Vital signs reviewed General: nontoxic, no distress, appears at stated age, obese Derm: warm, dry Head: atraumatic, normocephalic, symmetric Eyes: EOMI, no lid lag, anicteric sclera, pupils equal round reactive to light ENT: Nose and ears atraumatic Neck: No thyromegaly, supple Mouth: no lip lesion, mucus membranes moist Cardiovascular: S1S2 reg, no murmur, no edema Lungs: clear to auscultation bilateral, no rhonchi, no rales, no wheeze, no accessory muscle use Abdominal: soft, nontender to palpation, no guarding, no appreciable organomegaly Ext: no gross muscle atrophy, muscle strength muscle strength 5 out of 5 in all 4 extremities, no contractures Neuro: CN II-XII grossly intact, speech is mildly slurred, no aphasia, no limb weakness, sensation deficit, normal finger-nose Psych: Alert, oriented, appropriate affect Assessment/Plan: Status post mechanical fall without loss of consciousness Nonspecific symptoms of whole body weakness and numbness Left eye blurred vision CVA with slurred speech and right arm numbness, weakness, gait instabilit bilateral LE weakness, unclear if residual Recent CVA TIA CAD A-fib s/p cardiac ablation on Eliquis HTN HLD -Continue patient's home aspirin 81 daily, 80 mg of atorvastatin -Continue metoprolol 25 twice daily, continue valsartan 320 daily with holding parameters -Continue Eliquis 5 twice daily -Ordered B12, B9, TSH -Denies dysuria, no UA ordered -PT OT -Neurology consulted, appreciate recommendations -Case management consulted, requested records from [facility] on chronic lower back pain Left-sided sciatica -Continue oxycodone 10 every 6 hours as needed, continue gabapentin 600 3 times daily, Tylenol 1 g every 6 hours as needed -Lidocaine patch GERD: Continue home omeprazole 40 Chronic constipation: Continue docusate, lactulose Iron deficiency: Continue iron sleep apnea, not using CPAP at home, refused CPAP in the hospital MTHFR gene mutation chronic swelling of the left lower extremity history of DVT history of gastric bypass 06/2023, cholecystectomy 05/2024 The patient is admitted with an anticipated [greater] than 2 midnight stay as [inpatient/observation] status for evaluation of nonspecific neurological symptoms, possible CVA. CODE STATUS full code DVT prophylaxis: Eliquis Anticipated discharge date: [address]: TBD, PT OT ordered A total of 40 minutes was spent on the care of this complex patient more than 50% of the time was spent in counseling and care coordination. Past Medical History Past Medical History: Atrial Fibrillation, Blood Disorder, Deep Vein Thrombosis (DVT), GERD/Reflux, Hearing Disorder / Deafness, Hypertension, Myocardial Infarction (HI), Osteoarthritis (OA), Sleep Apnea/CPAP/BIPAP Additional Past Medical History / Comment(s): DVT X 3- LAST TIME 2013- LT LEG, LUMBAR DDD- . HAS HX MTHFR GENE MUTATION-POSITIVE FOR HETEROZYGOUS PER DR. FRANCISCO'S OFFICE, doesn't not use CPAP, occasional swelling left lower leg Last Myocardial Infarction Date:: 09/2021 History of Any Multi-Drug Resistant Organisms: None Reported Past Surgical History: Bariatric Surgery, Cardiac Ablation, Cholecystectomy, Heart Catheterization, Joint Replacement Additional Past Surgical History / Comment(s): LEFT KNEE REPLACEMENT, LT INDEX JOINT REPLACEMENT, PAIN CLINIC PROCEDURES, COLONOSCOPY, EGD. Gastric bypass 07-06-23 Past Anesthesia/Blood Transfusion Reactions: Previous Problems w/ Anesthesia, Family History of Problems w/ Anesthesia, Motion Sickness Additional Past Anesthesia/Blood Transfusion Reaction / Comment(s): HARD TO PUT TO SLEEP-(pt and father)-needs more than normal. no hx blood transfusion Past Psychological History: Depression Smoking Status: Never smoker Past Alcohol Use History: Rare - Past Family History Sister(s) Family Medical History: Cancer Additional Family Medical History / Comment(s): Skin cancer. Mother History Unknown: Yes Medications and Allergies Home Medications Medication Instructions Recorded Confirmed Type Omeprazole 40 mg PO DAILY 07/10/23 11/17/24 History Cyclobenzaprine HCl 10 mg PO TID PRN 11/18/23 11/17/24 History Valsartan 320 mg PO DAILY 11/18/23 11/17/24 History Ferrous Sulfate [Iron (65 MG 325 mg PO BID 11/30/23 11/17/24 History Elemental)] EPINEPHrine (Auto Inject) [Epipen] 0.3 mg IM ONCE PRN 01/16/24 11/17/24 History clonazePAM [KlonoPIN] 1 mg PO QID 01/16/24 11/17/24 History Aspirin 81 mg PO DAILY 30 Days #30 tab 02/10/24 11/17/24 Rx Acetaminophen Tab [Tylenol Tab] 1,000 mg PO Q6HR PRN #30 tablet 06/03/24 11/17/24 Rx Apixaban [Eliquis] 5 mg PO BID 06/03/24 11/17/24 History Lactulose [Constulose] 30 gm PO BID 06/08/24 11/17/24 History Loratadine 10 mg PO DAILY 06/08/24 11/17/24 History Metoprolol Tartrate [Lopressor] 25 mg PO BID 06/08/24 11/17/24 History Docusate [Colace] 100 mg PO BID #60 capsule 07/27/24 11/17/24 Rx Atorvastatin [Lipitor] 80 mg PO HS 11/17/24 11/17/24 History Gabapentin 600 mg PO TID 11/17/24 11/17/24 History Tamsulosin HCl [Flomax] 0.4 mg PO DAILY 11/17/24 11/17/24 History oxyCODONE-APAP 10-325MG [Percoc[place] 1 tab PO Q6H PRN 11/17/24 11/17/24 History 10-325 mg] Allergies Allergy/AdvReac Type Severity Reaction Status Date / Time No Known Allergies Allergy Verified 11/17/24 15:40 Physical Exam Vitals: Vital Signs Temp Pulse Resp BP Pulse Ox 11/17/24 15:35 66 16 107/74 97 11/17/24 13:19 73 16 99/65 97 11/17/24 12:49 97.4 F L 77 18 101/70 99 Intake and Output 11/17/24 11/17/24 11/17/24 06:59 14:59 22:59 Other: Weight 136.078 kg Results CBC & Chem 7: 11/17/24 13:12 11/17/24 13:12 Labs: Abnormal Lab Results - Last 24 Hours (Table) 11/17/24 Range/Units 13:12 Sodium 133 L (137-145) mmol/L Total Protein 6.1 L (6.3-8.2) g/dL
[2024-11-17] MEDS: oxyCODONE-APAP 10-325MG 1 EACH TAB PO PRN (16:21)
[2024-11-17] MEDS: LIDOCAINE 4% PATCH TOPICAL SCH ×2 (16:22→20:37)
[2024-11-17] MEDS: METOPROLOL TARTRATE 25 MG TAB PO SCH (20:15)
[2024-11-17] MEDS: GABAPENTIN 300 MG CAP PO SCH (20:15)
[2024-11-17] MEDS: ATORVASTATIN 80 MG TAB PO SCH (20:16)
[2024-11-17] MEDS: LACTULOSE 20 GM/30 ML CUP PO SCH (20:17)
[2024-11-17] MEDS: DOCUSATE 100 MG CAP PO SCH (20:17)
[2024-11-17] MEDS: FERROUS SULFATE 325 MG TAB PO SCH (20:17)
[2024-11-17] MEDS: APIXABAN 5 MG TAB PO SCH (20:17)
[2024-11-17] MEDS: clonazePAM 1 MG TAB PO SCH (20:37)
[2024-11-18] MEDS: CYCLOBENZAPRINE 10 MG TAB PO PRN (03:40)
[2024-11-18] MEDS: LORATADINE 10 MG TAB PO SCH (10:19)
[2024-11-18] MEDS: VALSARTAN 160 MG TAB PO SCH (10:19)
[2024-11-18] MEDS: PANTOPRAZOLE 40 MG TABLET PO SCH (10:19)
[2024-11-18] MEDS: TAMSULOSIN 0.4 MG CAP.ER.24H PO SCH (10:19)
[2024-11-18] MEDS: ASPIRIN 81 MG PO SCH (10:20)
--- NOTE | 2024-11-18 15:26 | P.PN ---
Subjective Progress Note Date: 11/18/24 Hospital Course: Patient is a 44-year-old male with medical history of CAD, A-fib s/p cardiac a blation on Eliquis, HTN, HLD, GERD, sleep apnea, MTHFR gene mutation, TIA, PILY not using CPAP as prescribed, chronic swelling of the left lower extremity, history of DVT, history of gastric bypass 06/2023, cholecystectomy 05/2024, recent admission at [facility] for CVA with slurred speech and right arm numbness, weakness, gait instability, who presented today after a fall. Patient struck his head, he believes that that was due to bilateral lower extremity weakness. Patient is a poor historian, he does not remember what side of the brain was affected by stroke. To me he reports that he had whole body weakness and numbness, left eye blurred vision, symptoms are gone now, no particular limb weakness or sensation deficit noticed, he thinks that his speech is actually better now. He admits having chronic lower back pain that is now flaring up, he requests pain medications, specifically Dilaudid. He states that the pain radiates to his left lower extremity. He was able to ambulate today, but noted back pain. There is DREW documented as a 11/15/2024, no full report available, type. The EF was 50 to 55%, no PFO ED course: Patient was afebrile on admission, heart rate in 70s, BP 101/78, satting well on room air. Blood work: Unremarkable CBC, BMP with mild hyponatremia 133, otherwise u nremarkable. EKG showed sinus rhythm, no ST elevation, depression. CT brain with no acute abnormalities. Patient admitted under observation status to our service for further evaluation of fall, neurology consult 11/18: Patient continues to complain lower back pain radiating to the left leg, he states that he was able to ambulate in the hallway, still feels weak, patient states that he has severe pain although does not appear to be in any distress, he repeatedly requested Dilaudid for lower back pain, it was explained that opioids are not the optimal treatment for his sciatica and no Dilaudid will be ordered. Pertinent Imaging: Pertinent positives and negatives as discussed above, a complete review of systems was performed and all other systems are negative. Vitals Signs Reviewed. General: nontoxic, no distress, appears at stated age, obese Derm: warm, dry Head: atraumatic, normocephalic, symmetric Eyes: EOMI, no lid lag, anicteric sclera, pupils equal round reactive to light ENT: Nose and ears atraumatic Neck: No thyromegaly, supple Mouth: no lip lesion, mucus membranes moist Cardiovascular: S1S2 reg, no murmur, no edema Lungs: clear to auscultation bilateral, no rhonchi, no rales, no wheeze, no accessory muscle use Abdominal: soft, nontender to palpation, no guarding, no appreciable organomegaly Ext: no gross muscle atrophy, muscle strength muscle strength 5 out of 5 in all 4 extremities, no contractures Neuro: CN II-XII grossly intact, speech is mildly slurred, no aphasia, no limb weakness, sensation deficit, normal finger-nose, positive straight leg on the left Psych: Alert, oriented, appropriate affect Data Reviewed Today: No new blood work or imaging Assessment and Plan: Status post mechanical fall without loss of consciousness Nonspecific symptoms of whole body weakness and numbness Left eye blurred vision CVA with slurred speech and right arm numbness, weakness, gait instabilit bilateral LE weakness, unclear if residual Recent CVA TIA CAD A-fib s/p cardiac ablation on Eliquis HTN HLD -Continue patient's home aspirin 81 daily, 80 mg of atorvastatin -Continue metoprolol 25 twice daily, continue valsartan 320 daily with holding parameters -Continue Eliquis 5 twice daily -Ordered B12, B9, TSH -Denies dysuria, no UA ordered -PT OT: Discharge home -Neurology consulted, appreciate recommendations -Case management consulted, requested records from [facility] on chronic lower back pain Left-sided sciatica -Continue oxycodone 10 every 6 hours as needed, continue gabapentin 600 3 times daily, Tylenol 1 g every 6 hours as needed -Lidocaine patch -no dilaudid indicated GERD: Continue home omeprazole 40 Chronic constipation: Continue docusate, lactulose Iron deficiency: Continue iron sleep apnea, not using CPAP at home, refused CPAP in the hospital MTHFR gene mutation chronic swelling of the left lower extremity history of DVT history of gastric bypass 06/2023, cholecystectomy 05/2024 The patient is admitted with an anticipated [greater] than 2 midnight stay as [inpatient/observation] status for evaluation of nonspecific neurological symptoms, possible CVA. CODE STATUS full code DVT prophylaxis: Eliquis Anticipated discharge date: [address]: Home Objective - Vital Signs Vital signs: Vital Signs Temp 98.0 F 11/18/24 07:00 Pulse 75 11/18/24 07:00 Resp 17 11/18/24 07:00 BP 119/74 11/18/24 07:00 Pulse Ox 97 11/18/24 07:00 FiO2 Intake & Output 11/17/24 11/18/24 11/18/24 18:59 06:59 18:59 Intake Total 740 Balance 740 Weight 136.078 kg Intake: Oral 740 Other: Voiding Method Toilet # Voids 2 # Bowel Movements 1 - Labs CBC & Chem 7: 11/17/24 13:12 11/17/24 13:12
[2024-11-19] MEDS: clonazePAM 1 MG TAB PO PRN (02:45)
[2024-11-19 07:44] VITALS: RESP 17; TEMP 97.6
--- NOTE | 2024-11-19 08:51 | P.CNNES ---
History of Present Illness Consult date: 11/18/24 Requesting physician: Paul Carrazna Reason for Consult: Generalized weakness, slurred speech History of Present Illness: Patient is a 44-year-old male came to the hospital yesterday at 12:44 PM for dizziness, memory disturbance. Patient states that he came to the hospital because his heart was racing, left side of the body was numb, blurred vision in the left eye, could not pick anything with the left arm. Symptoms lasted for 6 to 7 hours and then resolved. At present all presenting symptoms have resolved. He is focused about back pain and is asking for Dilaudid constantly. As soon as I entered the room, patient states that he has "terrible headache", low back pain if he can get Dilaudid. Patient is receiving Percocets. Patient states that he has couple strokes in the past, although at least with 1 admission, when I had seen the patient, he had an MRI which did not show any acute stroke. Patient is already on optimal antiplatelet/anticoagulant regimen. Vital signs arrival blood pressure 101/70, pulse rate 77 temperature 97.4. Blood test shows normal CBC, PT PTT, normal CMP. Troponin negative. B12 293, TSH 0.695. EKG shows sinus rhythm. CT head revealed no significant abnormality seen. No acute process. I personally reviewed CT head, agree with the findings. Patient has been seen by myself on 02/09/2024 for possible CVA. Patient had presented at that time with recurrent episodes of focal neurological symptoms of dizziness lightheadedness, left eye blurred vision, slurred speech and leaning to the left side. Patient had a brain MRI done at that time, which was normal. Carotid Doppler showed no evidence of hemodynamically significant stenosis. Patient had a CTA performed 02/08/2024, which revealed no evidence of significant stenosis in the neck. It was a poor study. 2D echo performed 12/01/2023 was significant for low normal LV systolic function with EF 50%. Normal left atrial size. No valvular abnormalities. Patient had a normal EEG on 02/09/2024. Patient has history of hypertension, hyperlipidemia but no diabetes. Denies any history of seizures. Patient states that he had history of mild stroke about 25 years ago with no residual deficits. He has never smoked, drinks alcohol socially. Patient has history of atrial fibrillation diagnosed 2 years ago, and also has history of DVT, currently on Eliquis 5 mg twice daily, Lipitor 80 mg as well as aspirin 81 mg daily. He states he is compliant with the medication. Review of Systems All pertinent positive and negative review of systems mentioned in the HPI. Past Medical History Past Medical History: Atrial Fibrillation, Blood Disorder, Deep Vein Thrombosis (DVT), GERD/Reflux, Hearing Disorder / Deafness, Hypertension, Myocardial Infarction (DE), Osteoarthritis (OA), Sleep Apnea/CPAP/BIPAP Additional Past Medical History / Comment(s): DVT X 3- LAST TIME 2012- LT LEG, LUMBAR DDD- . HAS HX MTHFR GENE MUTATION-POSITIVE FOR HETEROZYGOUS PER DR. FRANCISCO'S OFFICE, doesn't not use CPAP, occasional swelling left lower leg Last Myocardial Infarction Date:: 09/2021 History of Any Multi-Drug Resistant Organisms: None Reported Past Surgical History: Bariatric Surgery, Cardiac Ablation, Cholecystectomy, Heart Catheterization, Joint Replacement Additional Past Surgical History / Comment(s): LEFT KNEE REPLACEMENT, LT INDEX JOINT REPLACEMENT, PAIN CLINIC PROCEDURES, COLONOSCOPY, EGD. Gastric bypass 07-06-23 Past Anesthesia/Blood Transfusion Reactions: Previous Problems w/ Anesthesia, Family History of Problems w/ Anesthesia, Motion Sickness Additional Past Anesthesia/Blood Transfusion Reaction / Comment(s): HARD TO PUT TO SLEEP-(pt and father)-needs more than normal. no hx blood transfusion Past Psychological History: Depression Smoking Status: Never smoker Past Alcohol Use History: Rare Additional Past Alcohol Use History / Comment(s): . Past Drug Use History: None Reported Additional Drug Use History / Comment(s): . - Past Family History Sister(s) Family Medical History: Cancer Additional Family Medical History / Comment(s): Skin cancer. Mother History Unknown: Yes Medications and Allergies Home Medications Medication Instructions Recorded Confirmed Type Omeprazole 40 mg PO DAILY 07/10/23 11/17/24 History Cyclobenzaprine HCl 10 mg PO TID PRN 11/18/23 11/17/24 History Valsartan 320 mg PO DAILY 11/18/23 11/17/24 History Ferrous Sulfate [Iron (65 MG 325 mg PO BID 11/30/23 11/17/24 History Elemental)] EPINEPHrine (Auto Inject) [Epipen] 0.3 mg IM ONCE PRN 01/16/24 11/17/24 History clonazePAM [KlonoPIN] 1 mg PO QID 01/16/24 11/17/24 History Aspirin 81 mg PO DAILY 30 Days #30 tab 02/10/24 11/17/24 Rx Acetaminophen Tab [Tylenol Tab] 1,000 mg PO Q6HR PRN #30 tablet 06/03/24 11/17/24 Rx Apixaban [Eliquis] 5 mg PO BID 06/03/24 11/17/24 History Lactulose [Constulose] 30 gm PO BID 06/08/24 11/17/24 History Loratadine 10 mg PO DAILY 06/08/24 11/17/24 History Metoprolol Tartrate [Lopressor] 25 mg PO BID 06/08/24 11/17/24 History Docusate [Colace] 100 mg PO BID #60 capsule 07/27/24 11/17/24 Rx Atorvastatin [Lipitor] 80 mg PO HS 11/17/24 11/17/24 History Gabapentin 600 mg PO TID 11/17/24 11/17/24 History Tamsulosin HCl [Flomax] 0.4 mg PO DAILY 11/17/24 11/17/24 History oxyCODONE-APAP 10-325MG [Percocet 1 tab PO Q6H PRN 11/17/24 11/17/24 History 10-325 mg] Allergies Allergy/AdvReac Type Severity Reaction Status Date / Time No Known Allergies Allergy Verified 11/17/24 15:40 Physical Examination - Vital Signs Vital Signs: Vital Signs Temp Pulse Pulse Resp BP BP Pulse Ox 11/18/24 07:00 98.0 F 75 17 119/74 97 11/18/24 01:05 97.6 F 68 18 105/62 95 11/17/24 18:30 98.3 F 68 16 150/74 100 11/17/24 17:59 98.4 F 70 14 112/69 99 11/17/24 16:00 67 18 110/77 98 11/17/24 15:35 66 16 107/74 97 Intake and Output 11/17/24 11/18/24 11/18/24 22:59 06:59 14:59 Intake Total 740 Balance 740 Intake: Oral 740 Other: Voiding Method Toilet # Voids 1 2 # Bowel Movements 1 Weight 136.078 kg Patient is a middle aged male, in no acute distress. Patient appears very comfortable. Patient is alert awake oriented to time place and person. Speech and language functions are normal. Patient can name and repeat very well. No aphasia or dysarthria. Attention, concentration and fund of knowledge is adequate. On cranial nerve examination, pupils are equal, round and reacting to light, visual carl[place] are full on confrontation, with no neglect on double simultaneous stimulation. Extraocular muscles are intact with no nystagmus. Face is symmetric, tongue protrudes to the midline. Palatal elevation and sensation normal, hearing and shoulder shrug normal, facial sensation normal. On muscle strength testing, there is no pronator drift and the strength is normal in arms and legs distally and proximally. Deep tendon reflexes are symmetric 1 at the biceps, 1 brachioradialis, 2 at the right knee, probably absent on the left from previous knee surgery. 1 at ankles and plantars downgoing bilaterally. Sensory to touch is equal with no neglect on double simultaneous stimulation. Cerebellar function showed no ataxia for eccotn-dc-daaf testing. No dys diadochokinesia. No ataxia for wfhx-tf-bhnl testing on either side. Tone and bulk of muscles normal. Gait deferred.. On general examination, there is no carotid bruit or murmur, S1-S2 audible. Ch est is clear on consultation. Abdomen is soft nontender. No organomegaly, bowel sounds present. Peripheral pulses are present. No peripheral edema. Results - Laboratory Findings CBC and BMP: 11/17/24 13:12 11/17/24 13:12 Abnormal Lab Findings: Abnormal Labs 11/17/24 13:12 Sodium 133 L Total Protein 6.1 L Assessment and Plan Assessment: * Transient symptoms including left-sided numbness, blurred vision, weakness left arm, resolved in 6 to 7 hours. Rule out TIA. Patient is already on optimal dose of anticoagulation with Eliquis and aspirin 81 mg. * Chronic back pain, asking for Dilaudid. * Hypertension * Hyperlipidemia * Atrial fibrillation * History of DVT * Obesity * Vitamin B12 deficiency * Borderline folate Plan: * Patient is already on optimal dose of medication regimen including Eliquis 5 mg twice daily and aspirin 81 mg daily. His symptoms have completely resolved. * Patient had complete workup performed on 02/09/2024 for similar symptomatology, and all tests were normal, including MRI of the brain. Other tests results as mentioned below. No need to repeat. * Carotid Doppler 02/09/2024 showed no evidence of hemodynamically significant stenosis. Antegrade flow in both vertebral arteries. * CTA performed 02/08/2024, which revealed no evidence of significant stenosis in the neck. It was a poor study. * 2D echo performed 12/01/2023 was significant for low normal LV systolic function with EF 50%. Normal left atrial size. No valvular abnormalities. * EEG on 02/09/2024 was normal. * Current CT head is normal. * Hemoglobin A1c 5.6 * Vitamin B1 293, which is low. We will start vitamin B12 replacement. * Folic acid 8.7, start folic acid 1 mg daily. TSH normal. * Regarding back pain, will defer to IM. * Neurologically clear for discharge. Thank you for the consult.
[2024-11-19 09:12] VITALS: PULSE 86
[2024-11-19 10:06] VITALS: BP 108/72
--- NOTE | 2024-11-19 13:52 | P.DS ---
Providers Date of admission: 11/17/24 14:26 Attending physician: Alex Irizarry Consults: 11/17/24 14:24 Consult Physician Routine Consulting Provider: Josh Persaud Consult Reason/Comments: gen weakness, slurred speech Do you want consulting provider notified?: Yes Primary care physician: Aden Diaz MD Hospital Course: Discharge Diagnosis: Transient left-sided numbness, left eye blurred vision, left arm weakness, rule out TIA Folate deficiency Vitamin B12 deficiency hx of CVA with slurred speech and right arm numbness, weakness, gait instabilit bilateral LE weakness, unclear if residual Recent CVA TIA CAD A-fib s/p cardiac ablation on Eliquis HTN HLD Acute on chronic lower back pain Left-sided sciatica Hospital Course: Patient is a 44-year-old male with medical history of CAD, A-fib s/p cardiac ablation on Eliquis, HTN, HLD, GERD, sleep apnea, MTHFR gene mutation, TIA, PILY not using CPAP as prescribed, chronic swelling of the left lower extremity, history of DVT, history of gastric bypass 06/2023, cholecystectomy 05/2024, recent admission at [facility] for CVA with slurred speech and right arm numbness, weakness, gait instability, who presented today after a fall. Patient struck his head, he believes that that was due to bilateral lower extremity weakness. Patient is a poor historian, he does not remember what side of the brain was affected by stroke. To me he reports that he had whole body weakness and numbness, left eye blurred vision, symptoms are gone now, no particular limb weakness or sensation deficit noticed, he thinks that his speech is actually be tter now. He admits having chronic lower back pain that is now flaring up, he requests pain medications, specifically Dilaudid. He states that the pain radiates to his left lower extremity. He was able to ambulate today, but noted back pain. There is DREW documented as a 11/15/2024, no full report available, type. The EF was 50 to 55%, no PFO ED course: Patient was afebrile on admission, heart rate in 70s, BP 101/78, satting well on room air. Blood work: Unremarkable CBC, BMP with mild hyponatremia 133, otherwise unremarkable. EKG showed sinus rhythm, no ST elevation, depression. CT brain with no acute abnormalities. Patient admitted under observation status to our service for further evaluation of fall, neurology consult. Patient is in optimal treatment regimen, symptoms have completely resolved. Vitamin B 12 and B9 will be replaced. Neurologically cleared for discharge 11/18: Patient continues to complain lower back pain radiating to the left leg, he states that he was able to ambulate in the hallway, still feels weak, patient states that he has severe pain although does not appear to be in any distress, he repeatedly requested Dilaudid for lower back pain, it was explained that opioids are not the optimal treatment for his sciatica and no Dilaudid will be ordered. Patient seen and examined at bedside. No active complaints Vital signs reviewed and stable. General: nontoxic, no distress, appears at stated age, obese Derm: warm, dry Head: atraumatic, normocephalic, symmetric Eyes: EOMI, no lid lag, anicteric sclera, pupils equal round reactive to light ENT: Nose and ears atraumatic Neck: No thyromegaly, supple Mouth: no lip lesion, mucus membranes moist Cardiovascular: S1S2 reg, no murmur, no edema Lungs: clear to auscultation bilateral, no rhonchi, no rales, no wheeze, no accessory muscle use Abdominal: soft, nontender to palpation, no guarding, no appreciable organomegaly Ext: no gross muscle atrophy, muscle strength muscle strength 5 out of 5 in all 4 extremities, no contractures Neuro: CN II-XII grossly intact, speech is mildly slurred, no aphasia, no limb weakness, sensation deficit, normal finger-nose, positive straight leg on the left Psych: Alert, oriented, appropriate affect A total of 40 minutes of time were spent preparing this complex discharge summary. Patient was discharged on 11/19/2024. Patient Condition at Discharge: Stable Plan - Discharge Summary Discharge Rx Participant: No New Discharge Prescriptions: No Action Cyclobenzaprine HCl 10 mg PO TID PRN PRN Reason: Pain Valsartan 320 mg PO DAILY Ferrous Sulfate [Iron (65 MG Elemental)] 325 mg PO BID EPINEPHrine (Auto Inject) [Epipen] 0.3 mg IM ONCE PRN PRN Reason: Anaphylaxis Aspirin 81 mg PO DAILY 30 Days #30 tab Apixaban [Eliquis] 5 mg PO BID Metoprolol Tartrate [Lopressor] 25 mg PO BID Docusate [Colace] 100 mg PO BID #60 capsule oxyCODONE-APAP 10-325MG [Percocet 10-325 mg] 1 tab PO Q6H PRN PRN Reason: Pain Tamsulosin HCl [Flomax] 0.4 mg PO DAILY Gabapentin 600 mg PO TID Atorvastatin [Lipitor] 80 mg PO HS Omeprazole 40 mg PO DAILY clonazePAM [KlonoPIN] 1 mg PO QID Acetaminophen Tab [Tylenol Tab] 1,000 mg PO Q6HR PRN #30 tablet PRN Reason: Pain Loratadine 10 mg PO DAILY Lactulose [Constulose] 30 gm PO BID Discharge Medication List Omeprazole 40 mg PO DAILY 07/10/23 [History] Cyclobenzaprine HCl 10 mg PO TID PRN 11/18/23 [History] Valsartan 320 mg PO DAILY 11/18/23 [History] Ferrous Sulfate [Iron (65 MG Elemental)] 325 mg PO BID 11/30/23 [History] EPINEPHrine (Auto Inject) [Epipen] 0.3 mg IM ONCE PRN 01/16/24 [History] clonazePAM [KlonoPIN] 1 mg PO QID 01/16/24 [History] Aspirin 81 mg PO DAILY 30 Days #30 tab 02/10/24 [Rx] Acetaminophen Tab [Tylenol Tab] 1,000 mg PO Q6HR PRN #30 tablet 06/03/24 [Rx] Apixaban [Eliquis] 5 mg PO BID 06/03/24 [History] Lactulose [Constulose] 30 gm PO BID 06/08/24 [History] Loratadine 10 mg PO DAILY 06/08/24 [History] Metoprolol Tartrate [Lopressor] 25 mg PO BID 06/08/24 [History] Docusate [Colace] 100 mg PO BID #60 capsule 07/27/24 [Rx] Atorvastatin [Lipitor] 80 mg PO HS 11/17/24 [History] Gabapentin 600 mg PO TID 11/17/24 [History] Tamsulosin HCl [Flomax] 0.4 mg PO DAILY 11/17/24 [History] oxyCODONE-APAP 10-325MG [Percocet 10-325 mg] 1 tab PO Q6H PRN 11/17/24 [History] Follow up Appointment(s)/Referral(s): Aden Diaz MD [Primary Care Provider] - 1-2 days Discharge/Stand Alone Forms: Outpatient Counseling
== END 2024-11-19 14:30 | disposition home or self-care (01) ==
LOC: EC 12:44 → 6NMEDSUR 14:26
PROVIDERS: ADMIT Student in an Organized Health Care Education/Training Program; ATTEND Student in an Organized Health Care Education/Training Program
DX: R53.1 Weakness (principal); R20.0 Anesthesia of skin; H53.8 Other visual disturbances; I69.928 Other speech and language deficits following unspecified cerebrovascular disease; I69.998 Other sequelae following unspecified cerebrovascular disease; R26.89 Other abnormalities of gait and mobility; E53.8 Deficiency of other specified B group vitamins; E61.1 Iron deficiency; E66.9 Obesity, unspecified; E78.5 Hyperlipidemia, unspecified; E87.1 Hypo-osmolality and hyponatremia; F32.A Depression, unspecified; G47.33 Obstructive sleep apnea (adult) (pediatric); G89.29 Other chronic pain; H91.90 Unspecified hearing loss, unspecified ear; I10 Essential (primary) hypertension; I25.10 Atherosclerotic heart disease of native coronary artery without angina pectoris; I25.2 Old myocardial infarction; I48.91 Unspecified atrial fibrillation; K21.9 Gastro-esophageal reflux disease without esophagitis; K59.09 Other constipation; M54.42 Lumbago with sciatica, left side; W19.XXXA Unspecified fall, initial encounter; E72.12 Methylenetetrahydrofolate reductase deficiency; M19.90 Unspecified osteoarthritis, unspecified site; M51.360 Other intervertebral disc degeneration, lumbar region with discogenic back pain only; Z79.01 Long term (current) use of anticoagulants; Z79.82 Long term (current) use of aspirin; Z79.899 Other long term (current) drug therapy; Z86.718 Personal history of other venous thrombosis and embolism; Z96.652 Presence of left artificial knee joint; Z98.84 Bariatric surgery status
CPT/HCPCS: 99285; 36415; 93005; 97161; 97165; 82747; 80053; 84443; 82607; 82550; 84484; 85025; 85610; 85730; 70450; G0378 ×3

== ENCOUNTER 2024-11-20 11:24 | Observation (INO) | payer OTHER ==
[2024-11-20] MEDS: SODIUM CHLORIDE 0.9% 500 ML 500 ML IV STA ×2 (12:06→13:26)
[2024-11-20 12:07] LABS: Basophils % (A) 0 %; Eosinophils # (A) 0.3 k/uL (0-0.7); Eosinophils % (A) 2 %; HCT 42.2 % (39.0-53.0); HGB 13.8 gm/dL (13.0-17.5); Hypochromasia Slight; Lymphocytes # (A) 1.3 k/uL (1.0-4.8); Lymphocytes % (A) 11 %; MCH 27.3 pg (25.0-35.0); MCHC 32.6 g/dL (31.0-37.0); MCV 83.6 fL (80.0-100.0); Mean Platelet Volume 6.8; Monocytes # (A) 0.5 k/uL (0-1.0); Monocytes % (A) 4 %; Neutrophils # (A) 10.2 k/uL (1.3-7.7); Neutrophils % (A) 82 %; Platelet Count 184 k/uL (150-450); RBC 5.05 m/uL (4.30-5.90); RDW 13.9 % (11.5-15.5); WBC 12.4 k/uL (3.8-10.6)
[2024-11-20 12:17] LABS: ALT 12 U/L (4-49); AST 13 U/L (17-59); African American GFR (CKD) >90 (>60 ml/min/1.73 sqM); Albumin 3.6 g/dL (3.5-5.0); Alkaline Phosphatase 88 U/L (38-126); Anion Gap 5 mmol/L; Blood Urea Nitrogen 14 mg/dL (9-20); Carbon Dioxide 31 mmol/L (22-30); Chloride 99 mmol/L (98-107); Glucose 84 mg/dL (74-99); Lipase 38 U/L (23-300); Magnesium 1.9 mg/dL (1.6-2.3); Non-African American GFR(CKD) >90 (>60 ml/min/1.73 sqM); Sodium 135 mmol/L (137-145); Total Bilirubin 0.5 mg/dL (0.2-1.3); Total Protein 5.8 g/dL (6.3-8.2)
[2024-11-20 12:25] LABS: NT-Pro-B-Type Natriuretic Pept 109 pg/mL
--- NOTE | 2024-11-20 12:25 | XR ---
EXAMINATION TYPE: XR chest 2V DATE OF EXAM: 11/20/2024 12:14 PM COMPARISON: 06/06/2024 CLINICAL INDICATION: Male, 44 years old with history of Chest Pain, TECHNIQUE: XR chest 2V view(s) obtained. FINDINGS: The heart size is normal. The pulmonary vasculature is normal. The lungs are clear. IMPRESSION: 1. No acute pulmonary process. [facility], , 11/20/2024 12:23 PM
--- NOTE | 2024-11-20 12:25 | ED ---
General Adult HPI - General Chief complaint: Chest Pain Stated complaint: chest pain and L side weakness Time Seen by Provider: 11/20/24 11:45 Source: patient, RN notes reviewed, old records reviewed Mode of arrival: wheelchair Limitations: no limitations - History of Present Illness Initial comments: Patient is a 44-year-old male who presents emergency department complaining of chest pain. States he has a history of experience this type of chest pain. Reproducible of the lower sternum. Does not radiate. No diaphoresis. No nausea or vomiting. States he took nitro at home with no improvement of the pain. Endorses worsening headache. Has a history of CVA, TIAs. Also has a history of A-fib and is on Eliquis. States he has been compliant with it. Is endorsing some paresthesias of the left upper extremity which she states he has on intermittent basis. Patient was admitted almost with identical complaints a few days ago and discharged home. States all of his symptoms started approximately 1 hour prior to arrival. Denies any recent trauma. Has been compliant with his blood thinning medications. Presents for further evaluation at this time. Attempted multiple nitro tablets prior to arrival which did not improve his symptoms. - Related Data Home Medications Medication Instructions Recorded Confirmed Omeprazole 40 mg PO DAILY 07/10/23 11/20/24 Cyclobenzaprine HCl 10 mg PO TID PRN 11/18/23 11/20/24 Valsartan 320 mg PO DAILY 11/18/23 11/20/24 Ferrous Sulfate [Iron (65 MG 325 mg PO BID 11/30/23 11/20/24 Elemental)] EPINEPHrine (Auto Inject) [Epipen] 0.3 mg IM ONCE PRN 01/16/24 11/20/24 clonazePAM [KlonoPIN] 1 mg PO QID 01/16/24 11/20/24 Apixaban [Eliquis] 5 mg PO BID 06/03/24 11/20/24 Lactulose [Constulose] 30 gm PO BID 06/08/24 11/20/24 Loratadine 10 mg PO DAILY 06/08/24 11/20/24 Metoprolol Tartrate [Lopressor] 25 mg PO BID 06/08/24 11/20/24 Atorvastatin [Lipitor] 80 mg PO HS 11/17/24 11/20/24 Gabapentin 600 mg PO TID 11/17/24 11/20/24 Tamsulosin HCl [Flomax] 0.4 mg PO DAILY 11/17/24 11/20/24 oxyCODONE-APAP 10-325MG [Percocet 1 tab PO Q6H PRN 11/17/24 11/20/24 10-325 mg] Previous Rx's Medication Instructions Recorded Aspirin 81 mg PO DAILY 30 Days #30 tab 02/10/24 Acetaminophen Tab [Tylenol] 1,000 mg PO Q6HR PRN #30 tablet 06/03/24 Docusate [Colace] 100 mg PO BID #60 capsule 07/27/24 Cyanocobalamin (Vitamin B-12) 1,000 mcg PO DAILY #30 tablet 11/19/24 [Vitamin B-12] Folic Acid 1 mg PO DAILY #60 tablet 11/19/24 Allergies Allergy/AdvReac Type Severity Reaction Status Date / Time No Known Allergies Allergy Verified 11/20/24 13:39 Review of Systems ROS Statement: Those systems with pertinent positive or pertinent negative responses have been documented in the HPI. Review of Systems: CONST: Denies fever EYES: Denies blurry vision ENT: Denies nasal congestion C/V: Endorses chest pain RESP: Denies shortness of breath GI: Denies abdominal pain : Denies dysuria SKIN: Denies rash. MSK: Denies joint pain. NEURO: Denies headache ROS Other: All systems not noted in ROS Statement are negative. Past Medical History Past Medical History: Atrial Fibrillation, Blood Disorder, Deep Vein Thrombosis (DVT), GERD/Reflux, Hearing Disorder / Deafness, Hypertension, Myocardial Infarction ([place]), Osteoarthritis (OA), Sleep Apnea/CPAP/BIPAP Additional Past Medical History / Comment(s): DVT X 3- LAST TIME 2012- LT LEG, LUMBAR DDD- . HAS HX MTHFR GENE MUTATION-POSITIVE FOR HETEROZYGOUS PER DR. FRANCISCO'S OFFICE, doesn't not use CPAP, occasional swelling left lower leg Last Myocardial Infarction Date:: 09/2021 History of Any Multi-Drug Resistant Organisms: None Reported Past Surgical History: Bariatric Surgery, Cardiac Ablation, Cholecystectomy, Heart Catheterization, Joint Replacement Additional Past Surgical History / Comment(s): LEFT KNEE REPLACEMENT, LT INDEX JOINT REPLACEMENT, PAIN CLINIC PROCEDURES, COLONOSCOPY, EGD. Gastric bypass 07-06-23 Past Anesthesia/Blood Transfusion Reactions: Previous Problems w/ Anesthesia, Family History of Problems w/ Anesthesia, Motion Sickness Additional Past Anesthesia/Blood Transfusion Reaction / Comment(s): HARD TO PUT TO SLEEP-(pt and father)-needs more than normal. no hx blood transfusion Past Psychological History: Depression Smoking Status: Never smoker Past Alcohol Use History: Rare Past Drug Use History: None Reported - Past Family History Sister(s) Family Medical History: Cancer Additional Family Medical History / Comment(s): Skin cancer. Mother History Unknown: Yes General Exam - General Exam Comments Initial Comments: General: Appears in no acute distress. HEAD: Normal with no signs of head trauma. EYES: PERRLA, EOMI, conjunctiva normal, no discharge. ENT: Hearing grossly intact, normal oropharynx. RESPIRATORY: Clear breath sounds bilaterally. No wheezes, rales, or rhonchi. C/V: Regular rate and rhythm. S1 and S2 auscultated, no edema, peripheral pulses 2+ and intact throughout ABD: Abd is soft, nontender, nondistended EXT: Normal range of motion, no obvious deformity. Chest pain is reproducible on palpation of the sternum as well as the ribs around the sternum. SKIN: No rashes or lesions observed on exposed skin. NEURO: Alert and oriented x 4. Cranial nerves II-XII intact. No focal sensory or strength deficits. NIH is 0. GCS 15. Subjective paresthesias of the left upper extremity. Limitations: no limitations Course Vital Signs 11/20/24 11/20/24 11:28 12:54 Temperature 98.5 F Pulse Rate 59 L 79 Respiratory 18 16 Rate Blood Pressure 91/57 99/64 O2 Sat by Pulse 99 97 Oximetry Medical Decision Making - Medical Decision Making Was pt. sent in by a medical professional or institution (, PA, LIQUID CENTER ASSEMBLER, urgent care, hospital, or senior living...) When possible be specific @ -No Did you speak to anyone other than the patient for history (EMS, parent, family, police, friend...)? What history was obtained from this source @ -No Did you review nursing and triage notes (agree or disagree)? Why? @ -I reviewed and agree with nursing and triage notes Were old charts reviewed (outside hosp., previous admission, EMS record, old EKG, old radiological studies, urgent care reports/EKG's, senior living records)? Report findings @ -Reviewed chart from earlier this week when he was admitted on November 17, 2024. Almost identical complaints. Today's EKG compared with EKG from November 17 which showed no obvious acute dynamic changes. Differential Diagnosis (chest pain, altered mental status, abdominal pain women, abdominal pain men, vaginal bleeding, weakness, fever, dyspnea, syncope, he adache, dizziness, GI bleed, back pain, seizure, CVA, palpatations, mental health, musculoskeletal)? @ -Differential Chest Pain: Stable Angina, Unstable Angina, STEMI, NSTEMI Aortic Dissection, Pneumothorax, Musculoskeletal, Esophageal Spasm GERD, Cholecystitis, Pancreatitis, Zoster, this is not meant to be an all-inclusive list. EKG interpreted by me (3pts min.). @ -As above X-rays interpreted by me (1pt min.). @ -Chest x-ray reveals no obvious acute cardiopulmonary process. CT interpreted by me (1pt min.). @ -CT brain reveals no evidence of acute intracranial process. U/S interpreted by me (1pt. min.). @ -None done What testing was considered but not performed or refused? (CT, X-rays, U/S, labs)? Why? @ -None What meds were considered but not given or refused? Why? @ -None Did you discuss the management of the patient with other professionals (professionals i.e. , PA, LIQUID CENTER ASSEMBLER, lab, RT, psych nurse, social media senior associate, medical stenographer, teacher, transportation officer, registered nurse hh case manager)? Give summary @ -No Was smoking cessation discussed for >3mins.? @ -No Was critical care preformed (if so, how long)? @ -No Were there social determinants of health that impacted care today? How? (Homelessness, low income, unemployed, alcoholism, drug addiction, transportation, low edu. Level, literacy, decrease access to med. care, group home, rehab)? @ -No Was there de-escalation of care discussed even if they declined (Discuss DNR or withdrawal of care, Hospice)? DNR status @ -No What co-morbidities impacted this encounter? (DM, HTN, Smoking, COPD, CAD, Cancer, CVA, ARF, Chemo, Hep., AIDS, mental health diagnosis, sleep apnea, morbid obesity)? @ -Atrial fibrillation on blood thinners. History of CVA with residual speech deficits/slurred speech. Was patient admitted / discharged? Hospital course, mention meds given and route, prescriptions, significant lab abnormalities, going to OR and other pertinent info. @ -Patient presents emergency department with acute on chronic symptoms of chest pain, left arm paresthesias. Was seen with similar complaints a few days ago. Was not evaluated by cardiology he states during that stay. No history of cardiac stents. Symptoms began prior to arrival. Vital signs remarkable for mild hypotension in triage however patient took multiple nitroglycerin tablets prior to arrival. His symptoms did not improve with this nitro and therefore patient will be administered IV Dilaudid at his request. States morphine does not help with pain. He is also given a small fluid bolus. We will obtain cardiopulmonary workup. Patient was in agreement this plan. EKG shows no signs of acute ischemia. Laboratory studies are remarkable for normal BNP.Troponin is undetectable. Imaging is unremarkable. On reevaluation, patient is still complaining of the chest wall/chest pain. Due to multiple risk factors as well as patient having this for a few days, patient will be admitted as observation telemetry. Cardiology consulted. Patient will be restarted on his home Percocet. Patient given 324 mg of aspirin. Patient was in agreement this plan. I discussed the admission with the admitting team, Dr. Lozada who accepted the admission. Undiagnosed new problem with uncertain prognosis? @ -No Drug Therapy requiring intensive monitoring for toxicity (Heparin, Nitro, Insulin, Cardizem)? @ -No Were any procedures done? @ -No Diagnosis/symptom? @ -Chest pain, chest wall pain Acute, or Chronic, or Acute on Chronic? @ -Acute Uncomplicated (without systemic symptoms) or Complicated (systemic symptoms)? @ -Complicated Side effects of treatment? @ -None Exacerbation, Progression, or Severe Exacerbation] @ -No Poses a threat to life or bodily function? @ -Potentially, yes - Lab Data Result diagrams: 11/20/24 11:49 11/20/24 11:49 Lab Results 11/20/24 11/20/24 11/20/24 Range/Units 11:49 11:49 11:49 WBC 12.4 H (3.8-10.6) k/uL RBC 5.05 (4.30-5.90) m/uL Hgb 13.8 (13.0-17.5) gm/dL Hct 42.2 (39.0-53.0) % MCV 83.6 (80.0-100.0) fL MCH 27.3 (25.0-35.0) pg MCHC 32.6 (31.0-37.0) g/dL RDW 13.9 (11.5-15.5) % Plt Count 184 (150-450) k/uL MPV 6.8 Neutrophils % 82 % Lymphocytes % 11 % Monocytes % 4 % Eosinophils % 2 % Basophils % 0 % Neutrophils # 10.2 H (1.3-7.7) k/uL Lymphocytes # 1.3 (1.0-4.8) k/uL Monocytes # 0.5 (0-1.0) k/uL Eosinophils # 0.3 (0-0.7) k/uL Basophils # 0.0 (0-0.2) k/uL Hypochromasia Slight PT 10.7 (10.0-12.5) sec INR 1.0 (<1.2) APTT 25.0 (22.0-30.0) sec Sodium 135 L (137-145) mmol/L Potassium 4.0 (3.5-5.1) mmol/L Chloride 99 (98-107) mmol/L Carbon Dioxide 31 H (22-30) mmol/L Anion Gap 5 mmol/L BUN 14 (9-20) mg/dL Creatinine 0.95 (0.66-1.25) mg/dL Est GFR (CKD-EPI)AfAm >90 (>60 ml/min/1.73 sqM) Est GFR (CKD-EPI)NonAf >90 (>60 ml/min/1.73 sqM) Glucose 84 (74-99) mg/dL Calcium 9.0 (8.4-10.2) mg/dL Magnesium 1.9 (1.6-2.3) mg/dL Total Bilirubin 0.5 (0.2-1.3) mg/dL AST 13 L (17-59) U/L ALT 12 (4-49) U/L Alkaline Phosphatase 88 (38-126) U/L Troponin I (0.000-0.034) ng/mL NT-Pro-B Natriuret Pep 109 pg/mL Total Protein 5.8 L (6.3-8.2) g/dL Albumin 3.6 (3.5-5.0) g/dL Lipase 38 (23-300) U/L 11/20/24 Range/Units 11:49 WBC (3.8-10.6) k/uL RBC (4.30-5.90) m/uL Hgb (13.0-17.5) gm/dL Hct (39.0-53.0) % MCV (80.0-100.0) fL MCH (25.0-35.0) pg MCHC (31.0-37.0) g/dL RDW (11.5-15.5) % Plt Count (150-450) k/uL MPV Neutrophils % % Lymphocytes % % Monocytes % % Eosinophils % % Basophils % % Neutrophils # (1.3-7.7) k/uL Lymphocytes # (1.0-4.8) k/uL Monocytes # (0-1.0) k/uL Eosinophils # (0-0.7) k/uL Basophils # (0-0.2) k/uL Hypochromasia PT (10.0-12.5) sec INR (<1.2) APTT (22.0-30.0) sec Sodium (137-145) mmol/L Potassium (3.5-5.1) mmol/L Chloride (98-107) mmol/L Carbon Dioxide (22-30) mmol/L Anion Gap mmol/L BUN (9-20) mg/dL Creatinine (0.66-1.25) mg/dL Est GFR (CKD-EPI)AfAm (>60 ml/min/1.73 sqM) Est GFR (CKD-EPI)NonAf (>60 ml/min/1.73 sqM) Glucose (74-99) mg/dL Calcium (8.4-10.2) mg/dL Magnesium (1.6-2.3) mg/dL Total Bilirubin (0.2-1.3) mg/dL AST (17-59) U/L ALT (4-49) U/L Alkaline Phosphatase (38-126) U/L Troponin I <0.012 (0.000-0.034) ng/mL NT-Pro-B Natriuret Pep pg/mL Total Protein (6.3-8.2) g/dL Albumin (3.5-5.0) g/dL Lipase (23-300) U/L - EKG Data -: EKG Interpreted by Me EKG Comments: 12-lead Electrocardiogram Interpretation Note EKG was reviewed and interpreted by myself. 12-lead ECG performed at 1149 is interpreted by me as revealing normal sinus rhythm at a rate of 93 beats per minute. [place] is normal. AR interval is 135 ms, QRS durations 100 ms, QTc is 378 ms.. There were no ST or T wave abnormalities to suggest myocardial ischemia or injury. R wave progression across the precordium was satisfactory. By my interpretation this EKG is non-diagnostic for acute ischemia. 12-lead Electrocardiogram Interpretation Note EKG was reviewed and interpreted by myself. 12-lead ECG performed at 1401 is interpreted by me as revealing normal sinus rhythm at a rate of 79 beats per minute. Troy is normal. AR interval is 145 ms, QRS duration is 106 ms, QTc is 3 989 ms.. There were no ST or T wave abnormalities to suggest myocardial ischemia or injury. R wave progression across the precordium was satisfactory. By my interpretation this EKG is non-diagnostic for acute ischemia. When compared with EKG from earlier, no obvious dynamic changes. Disposition Clinical Impression: Chest pain, Chest wall pain Disposition: ADMITTED IP TO THIS HOSP Condition: Stable Time of Disposition: 13:58
[2024-11-20 12:26] LABS: Prothrombin Time 10.7 sec (10.0-12.5)
[2024-11-20] MEDS: HYDROmorphone 0.5 MG/0.5 ML SYRINGE IVP STA ×2 (12:33→12:36)
--- NOTE | 2024-11-20 12:34 | CT ---
EXAMINATION TYPE: CT brain wo con DATE OF EXAM: 11/20/2024 12:26 PM COMPARISON: 11/27/2024 CLINICAL INDICATION: Male, 44 years old with history of left arm parasthesias, L sided numbness, L ey e blurry TECHNIQUE: CT of the brain is performed utilizing 3 mm thick sections through the posterior fossa and 3 mm thick sections through the remaining calvarium. Study is performed within 24 hours of arrival to the hospital. Contrast used: mL of , (none if empty) CT DLP: 1153.1 mGycm, Automated exposure control for dose reduction was used. FINDINGS: No abnormal hyperdensity is present to suggest an acute intracranial hemorrhage. No mass lesion is evident. No acute infarcts are evident. Ventricles and sulci are appropriate for the patient age. Paranasal sinuses and mastoid air cells within the [id number] are clear. No interval change. IMPRESSION: 1. No acute intracranial process. Follow up MRI can be performed as clinically indicated. [facility], , 11/20/2024 12:31 PM
[2024-11-20] MEDS: ASPIRIN 81 MG PO STA (13:27)
[2024-11-20] MEDS: SODIUM CHLORIDE 0.9% 1,000 ML IV STA (13:28)
[2024-11-20] MEDS ORDERED: ONDANSETRON 4 MG/2 ML VIAL IVP PRN (13:36)
[2024-11-20] MEDS ORDERED: NALOXONE 0.4 MG/ML 1 ML VIAL IV PRN (13:36)
[2024-11-20] MEDS ORDERED: CYCLOBENZAPRINE 10 MG TAB PO PRN (13:49)
[2024-11-20] MEDS ORDERED: ACETAMINOPHEN TAB 500 MG TAB PO PRN (13:49)
[2024-11-20] MEDS: LIDOCAINE 4% PATCH TOPICAL SCH (14:10)
[2024-11-20] MEDS: oxyCODONE-APAP 10-325MG 1 EACH TAB PO PRN (14:13)
--- NOTE | 2024-11-20 14:25 | P.HPIM ---
History of Present Illness H&P Date: 11/20/24 Patient is a 44-year-old male with medical history of CAD, A-fib s/p cardiac ablation on Eliquis, HTN, HLD, GERD, sleep apnea, MTHFR gene mutation, TIA, PILY not using CPAP as prescribed, chronic swelling of the left lower extremity, history of DVT, history of gastric bypass 06/2023, cholecystectomy 05/2024, recent admission at [facility] for CVA with slurred speech and right arm numbness, weakness, gait instability, 11/19 discharged after being evaluated for transient left-sided numbness, left-sided blurred vision left arm weakness, seen by neurology who recommended to continue patient's current treatment, his symptoms have resolved after admission, he did not require any physical therapy, of note, patient was complaining of acute on chronic lower back pain with radiation to the left leg, repeatedly requesting Dilaudid. Presented to the ER 11/20 with chest pain with no associated diaphoresis, nausea, vomiting, radiation, also stated that his whole left side of the body was hurting especially left foot. Started at9 :45in the morning. He took nitroglycerin at home with no symptoms relief, admits having left upper extremity numbness that comes and goes chronically. No trauma, falls before symptoms onset reported. Chest pain is reproducible on palpation. Left foot is also tender to palpation, no decreased ROM ED course: Afebrile, normal heart rate, respiratory rate, BP 99/64, satting well on room air, BP appears to be around patient's baseline and similar to BP during previous admission. CBC with mild leukocytosis 12.4, sodium 135, kidney function normal and stable, troponin negative. EKG showed no changes from previous, no signs of acute ischemia. Chest x-ray with no acute process. Patient will be admitted under ops with serial tropes, cardiology consulted by ED. Pertinent positives and negatives as discussed in HPI, a complete review of systems was performed and all other systems are negative. Patient seen and examined at bedside. Vital signs reviewed General: nontoxic, no distress, appears at stated age, obese, appears comfortable Derm: warm, dry Head: atraumatic, normocephalic, symmetric Eyes: EOMI, no lid lag, anicteric sclera, pupils equal round reactive to light ENT: Nose and ears atraumatic Neck: No thyromegaly, supple Mouth: no lip lesion, mucus membranes moist Cardiovascular: S1S2 reg, no murmur, no edema, chest tenderness Lungs: clear to auscultation bilateral, no rhonchi, no rales, no wheeze, no accessory muscle use Abdominal: soft, nontender to palpation, no guarding, no appreciable organomegaly Ext: no gross muscle atrophy, muscle strength muscle strength 5 out of 5 in all 4 extremities, no contractures Neuro: CN II-XII grossly intact, no aphasia, no limb weakness, sensation deficit, normal finger-nose, positive straight leg on the left Psych: Alert, oriented, appropriate affect Assessment/Plan: Reproducible chest pain likely musculoskeletal Unspecific symptoms of left-sided body pain Chronic opioid use, concern for opioid seeking behavior, asking for Dilaudid CAD A-fib s/p cardiac ablation on Eliquis HTN HLD History of CVA with slurred speech and right arm numbness, weakness, gait instabilit History of TIA -Continue patient's home aspirin 81 daily, 80 mg of atorvastatin -Continue metoprolol 25 twice daily, continue valsartan 320 daily with holding parameters -Continue Eliquis 5 twice daily -Serial troponins -Lidocaine patch -Cardiology consulted by ER -Concern for opioid seeking behavior. Will benefit from pain clinic referral chronic lower back pain -Continue oxycodone 10 every 6 hours as needed, continue gabapentin 600 3 times daily, Tylenol 1 g every 6 hours as needed -Lidocaine patch -no dilaudid indicated GERD: Continue home omeprazole 40 Chronic constipation: Continue docusate, lactulose Iron deficiency: Continue iron sleep apnea, not using CPAP at home, refused CPAP in the hospital MTHFR gene mutation Morbid obesity chronic swelling of the left lower extremity history of DVT history of gastric bypass 06/2023, cholecystectomy 05/2024 CODE STATUS full code DVT prophylaxis: Eliquis Anticipated discharge date: [address]: Home A total of 40] minutes was spent on the care of this complex patient more than 50% of the time was spent in counseling and care coordination. Past Medical History Past Medical History: Atrial Fibrillation, Blood Disorder, Deep Vein Thrombosis (DVT), GERD/Reflux, Hearing Disorder / Deafness, Hypertension, Myocardial Infarction ([place]), Osteoarthritis (OA), Sleep Apnea/CPAP/BIPAP Additional Past Medical History / Comment(s): DVT X 3- LAST TIME 2012- LT LEG, LUMBAR DDD- . HAS HX MTHFR GENE MUTATION-POSITIVE FOR HETEROZYGOUS PER DR. FRANCISCO'S OFFICE, doesn't not use CPAP, occasional swelling left lower leg Last Myocardial Infarction Date:: 09/2021 History of Any Multi-Drug Resistant Organisms: None Reported Past Surgical History: Bariatric Surgery, Cardiac Ablation, Cholecystectomy, Heart Catheterization, Joint Replacement Additional Past Surgical History / Comment(s): LEFT KNEE REPLACEMENT, LT INDEX JOINT REPLACEMENT, PAIN CLINIC PROCEDURES, COLONOSCOPY, EGD. Gastric bypass 07-06-23 Past Anesthesia/Blood Transfusion Reactions: Previous Problems w/ Anesthesia, Family History of Problems w/ Anesthesia, Motion Sickness Additional Past Anesthesia/Blood Transfusion Reaction / Comment(s): HARD TO PUT TO SLEEP-(pt and father)-needs more than normal. no hx blood transfusion Past Psychological History: Depression Smoking Status: Never smoker Past Alcohol Use History: Rare Past Drug Use History: None Reported - Past Family History Sister(s) Family Medical History: Cancer Additional Family Medical History / Comment(s): Skin cancer. Mother History Unknown: Yes Medications and Allergies Home Medications Medication Instructions Recorded Confirmed Type Omeprazole 40 mg PO DAILY 07/10/23 11/20/24 History Cyclobenzaprine HCl 10 mg PO TID PRN 11/18/23 11/20/24 History Valsartan 320 mg PO DAILY 11/18/23 11/20/24 History Ferrous Sulfate [Iron (65 MG 325 mg PO BID 11/30/23 11/20/24 History Elemental)] EPINEPHrine (Auto Inject) [Epipen] 0.3 mg IM ONCE PRN 01/16/24 11/20/24 History clonazePAM [KlonoPIN] 1 mg PO QID 01/16/24 11/20/24 History Aspirin 81 mg PO DAILY 30 Days #30 tab 02/10/24 11/20/24 Rx Acetaminophen Tab [Tylenol] 1,000 mg PO Q6HR PRN #30 tablet 06/03/24 11/20/24 Rx Apixaban [Eliquis] 5 mg PO BID 06/03/24 11/20/24 History Lactulose [Constulose] 30 gm PO BID 06/08/24 11/20/24 History Loratadine 10 mg PO DAILY 06/08/24 11/20/24 History Metoprolol Tartrate [Lopressor] 25 mg PO BID 06/08/24 11/20/24 History Docusate [Colace] 100 mg PO BID #60 capsule 07/27/24 11/20/24 Rx Atorvastatin [Lipitor] 80 mg PO HS 11/17/24 11/20/24 History Gabapentin 600 mg PO TID 11/17/24 11/20/24 History Tamsulosin HCl [Flomax] 0.4 mg PO DAILY 11/17/24 11/20/24 History oxyCODONE-APAP 10-325MG [Percocet 1 tab PO Q6H PRN 11/17/24 11/20/24 History 10-325 mg] Cyanocobalamin (Vitamin B-12) 1,000 mcg PO DAILY #30 tablet 11/19/24 11/20/24 Rx [Vitamin B-12] Folic Acid 1 mg PO DAILY #60 tablet 11/19/24 11/20/24 Rx Allergies Allergy/AdvReac Type Severity Reaction Status Date / Time No Known Allergies Allergy Verified 11/20/24 13:39 Physical Exam Vitals: Vital Signs Temp Pulse Resp BP Pulse Ox 11/20/24 12:54 79 16 99/64 97 11/20/24 11:28 98.5 F 59 L 18 91/57 99 Intake and Output 11/19/24 11/20/24 11/20/24 22:59 06:59 14:59 Other: Weight 149.685 kg Results CBC & Chem 7: 11/20/24 11:49 11/20/24 11:49 Labs: Abnormal Lab Results - Last 24 Hours (Table) 11/20/24 11/20/24 Range/Units 11:49 11:49 WBC 12.4 H (3.8-10.6) k/uL Neutrophils # 10.2 H (1.3-7.7) k/uL Sodium 135 L (137-145) mmol/L Carbon Dioxide 31 H (22-30) mmol/L AST 13 L (17-59) U/L Total Protein 5.8 L (6.3-8.2) g/dL
[2024-11-20] MEDS: GABAPENTIN 300 MG CAP PO SCH (16:41)
[2024-11-20] MEDS: clonazePAM 1 MG TAB PO SCH (18:22)
[2024-11-20] MEDS: METOPROLOL TARTRATE 25 MG TAB PO SCH (20:52)
[2024-11-20] MEDS: ATORVASTATIN 80 MG TAB PO SCH (20:53)
[2024-11-20] MEDS: FERROUS SULFATE 325 MG TAB PO SCH (20:53)
[2024-11-20] MEDS: APIXABAN 5 MG TAB PO SCH (20:53)
[2024-11-20] MEDS: DOCUSATE 100 MG CAP PO SCH (20:53)
[2024-11-20] MEDS: LACTULOSE 20 GM/30 ML CUP PO SCH (20:54)
[2024-11-20] MEDS: MELATONIN 5 MG TABLET PO ONE (22:17)
[2024-11-21] MEDS: PANTOPRAZOLE 40 MG TABLET PO SCH (05:43)
[2024-11-21 07:47] VITALS: BP 126/73; PULSE 72; RESP 16; TEMP 97.6
[2024-11-21 08:55] LABS: ALT 7 U/L (10-49); AST 9 U/L (14-35); Albumin 3.3 g/dL (3.8-4.9); Albumin/Globulin Ratio 1.94 Ratio (1.60-3.17); Alkaline Phosphatase 81 U/L (41-126); BUN/Creat Ratio 12.88 Ratio (12.00-20.00); Blood Urea Nitrogen 10.3 mg/dL (9.0-27.0); Calcium 8.6 mg/dL (8.7-10.3); Carbon Dioxide 27.3 mmol/L (21.6-31.8); Chloride 106 mmol/L (96-109); Globulin 1.7 g/dL (1.6-3.3); Glucose 81 mg/dL (70-110); Potassium 4.4 mmol/L (3.5-5.5); Sodium 140 mmol/L (135-145); Total Bilirubin 0.3 mg/dL (0.3-1.2)
[2024-11-21] MEDS: TAMSULOSIN 0.4 MG CAP.ER.24H PO SCH (09:00)
[2024-11-21] MEDS: ASPIRIN 81 MG PO SCH (09:00)
[2024-11-21] MEDS: CYANOCOBALAMIN 500 MCG TAB PO SCH (09:00)
[2024-11-21] MEDS: FOLIC ACID 1 MG TAB PO SCH (09:00)
[2024-11-21] MEDS: LORATADINE 10 MG TAB PO SCH (09:00)
--- NOTE | 2024-11-21 09:09 | P.DS ---
Providers Date of admission: 11/20/24 13:36 Expected date of discharge: 11/21/24 Attending physician: Carmen Lozada MD Consults: 11/20/24 13:36 Consult Physician Routine Consulting Provider: [facility] Consult Reason/Comments: chest pain Do you want consulting provider notified?: Yes Primary care physician: Aden Diaz MD Hospital Course: Discharge Diagnosis: Costochondritis Leukocytosis, reactive Chest pain, ACS ruled out Chronic opioid dependence CAD Paroxysmal atrial fibrillation status post cardiac ablation on Eliquis History of CVA/TIA Hypertension Dyslipidemia Chronic low back pain History of DVT Morbid obesity, BMI 42.4 Hospital Course: 44-year-old male with medical history of CAD, A-fib s/p cardiac ablation on Eliquis, HTN, HLD, GERD, sleep apnea, MTHFR gene mutation, TIA, PILY not using CPAP as prescribed, chronic swelling of the left lower extremity, history of DVT, history of gastric bypass 06/2023, cholecystectomy 05/2024, recent admission at [facility] for CVA with slurred speech and right arm numbness, weakness, gait instability, 11/19 discharged after being evaluated for transient left-sided numbness, left-sided blurred vision left arm weakness, seen by neurology who recommended to continue patient's current treatment, his symptoms have resolved after admission, he did not require any physical therapy, of note, patient was complaining of acute on chronic lower back pain with radiation to the left leg, repeatedly requesting Dilaudid. Presented to the ER 11/20 with chest pain with no associated diaphoresis, nausea, vomiting, radiation, also stated that his whole left side of the body was hurting especially left foot. ED course: Afebrile, normal heart rate, respiratory rate, BP 99/64, satting well on room air, BP appears to be around patient's baseline and similar to BP during previous admission. CBC with mild leukocytosis 12.4, sodium 135, kidney function normal and stable, troponin negative. EKG showed no changes from previous, no signs of acute ischemia. Chest x-ray with no acute process. Troponin negative x 3. Patient was evaluated by cardiology. Likely costochondritis. Patient started on topical lidocaine patches. Patient seen and examined at bedside. Vital signs reviewed and stable. General: Nontoxic, no distress, appears at stated age, morbid obesity Derm: Warm, dry Head: Atraumatic, normocephalic, symmetric Eyes: EOMI, no lid lag, anicteric sclera Mouth: No lip lesion, mucus membranes moist Cardiovascular: S1S2 reg, no murmur, reproducible chest pain Lungs: CTA bilateral, no rhonchi, no rales, no accessory muscle use Abdominal: Soft, nontender to palpation, no guarding, no appreciable organomegaly Ext: No gross muscle atrophy, no edema, no contractures Neuro: CN II-XI grossly intact, no focal neuro deficits Psych: Alert, oriented, appropriate affect A total of 36 minutes of time were spent preparing this complex discharge summary. Patient was discharged on 11/21/2024 at 903. Patient Condition at Discharge: Stable Plan - Discharge Summary Discharge Rx Participant: No New Discharge Prescriptions: New Lidocaine 4% Patch 1 patch TOPICAL DAILY #14 patch Continue Cyclobenzaprine HCl 10 mg PO TID PRN PRN Reason: Pain Valsartan 320 mg PO DAILY Ferrous Sulfate [Iron (65 MG Elemental)] 325 mg PO BID EPINEPHrine (Auto Inject) [Epipen] 0.3 mg IM ONCE PRN PRN Reason: Anaphylaxis Aspirin 81 mg PO DAILY 30 Days #30 tab Apixaban [Eliquis] 5 mg PO BID Metoprolol Tartrate [Lopressor] 25 mg PO BID Docusate [Colace] 100 mg PO BID #60 capsule oxyCODONE-APAP 10-325MG [Percocet 10-325 mg] 1 tab PO Q6H PRN PRN Reason: Pain Tamsulosin HCl [Flomax] 0.4 mg PO DAILY Gabapentin 600 mg PO TID Atorvastatin [Lipitor] 80 mg PO HS Omeprazole 40 mg PO DAILY clonazePAM [KlonoPIN] 1 mg PO QID Acetaminophen Tab [Tylenol] 1,000 mg PO Q6HR PRN #30 tablet PRN Reason: Pain Loratadine 10 mg PO DAILY Lactulose [Constulose] 30 gm PO BID Folic Acid 1 mg PO DAILY #60 tablet Cyanocobalamin (Vitamin B-12) [Vitamin B-12] 1,000 mcg PO DAILY #30 tablet Discharge Medication List Omeprazole 40 mg PO DAILY 07/10/23 [History] Cyclobenzaprine HCl 10 mg PO TID PRN 11/18/23 [History] Valsartan 320 mg PO DAILY 11/18/23 [History] Ferrous Sulfate [Iron (65 MG Elemental)] 325 mg PO BID 11/30/23 [History] EPINEPHrine (Auto Inject) [Epipen] 0.3 mg IM ONCE PRN 01/16/24 [History] clonazePAM [KlonoPIN] 1 mg PO QID 01/16/24 [History] Aspirin 81 mg PO DAILY 30 Days #30 tab 02/10/24 [Rx] Acetaminophen Tab [Tylenol] 1,000 mg PO Q6HR PRN #30 tablet 06/03/24 [Rx] Apixaban [Eliquis] 5 mg PO BID 06/03/24 [History] Lactulose [Constulose] 30 gm PO BID 06/08/24 [History] Loratadine 10 mg PO DAILY 06/08/24 [History] Metoprolol Tartrate [Lopressor] 25 mg PO BID 06/08/24 [History] Docusate [Colace] 100 mg PO BID #60 capsule 07/27/24 [Rx] Atorvastatin [Lipitor] 80 mg PO HS 11/17/24 [History] Gabapentin 600 mg PO TID 11/17/24 [History] Tamsulosin HCl [Flomax] 0.4 mg PO DAILY 11/17/24 [History] oxyCODONE-APAP 10-325MG [Percocet 10-325 mg] 1 tab PO Q6H PRN 11/17/24 [History] Cyanocobalamin (Vitamin B-12) [Vitamin B-12] 1,000 mcg PO DAILY #30 tablet 11/19/24 [Rx] Folic Acid 1 mg PO DAILY #60 tablet 11/19/24 [Rx] Lidocaine 4% Patch 1 patch TOPICAL DAILY #14 patch 11/21/24 [Rx] Follow up Appointment(s)/Referral(s): Aden Diaz MD [Primary Care Provider] - 1-2 days Patient Instructions/Handouts: Costochondritis (DC), Noncardiac Chest Pain (DC) Activity/Diet/Wound Care/Special Instructions: Please see your PCP. Discharge Disposition: HOME SELF-CARE
[2024-11-21 09:39] LABS: Basophils # (A) 0.03 X 10*3/uL (0.00-0.10); Basophils % (A) 0.6 %; Eosinophils # (A) 0.26 X 10*3/uL (0.04-0.35); Eosinophils % (A) 5.1 %; HCT 41.1 % (39.6-50.0); HGB 12.9 g/dL (13.0-17.0); Lymphocytes # (A) 1.84 X 10*3/uL (0.90-5.00); Lymphocytes % (A) 35.8 %; MCH 26.4 pg (27.0-32.0); MCHC 31.4 g/dL (32.0-37.0); MCV 84.2 FL (80.0-97.0); Mean Platelet Volume 9.5 FL (9.5-12.2); Monocytes # (A) 0.37 X 10*3/uL (0.20-1.00); Monocytes % (A) 7.2 %; NRBC Per 100 WBC 0 X 10*3/uL (0.00-0.01); Neutrophils # (A) 2.63 X 10*3/uL (1.80-7.70); Neutrophils % (A) 51.1 %; Platelet Count 180 X 10*3/uL (140-440); RBC 4.88 X 10*6/uL (4.40-5.60); RDW 13.5 % (11.5-14.5); WBC 5.14 X 10*3/uL (4.50-10.00)
[2024-11-21] MEDS: VALSARTAN 160 MG TAB PO SCH (09:54)
--- NOTE | 2024-11-21 11:09 | P.CRDCN ---
History of Present Illness History of present illness: HISTORY OF PRESENT ILLNESS: This is a 44-year-old male with a past medical history significant for DVT, obstructive sleep apnea, hypertension, normal coronary arteries, paroxysmal atrial fibrillation, and CVA. Patient follows in the office with Dr. Wolfe. We have been asked to see the patient in consultation for chest pain. Patient examined at the bedside. Patient presented to the hospital with multiple symptoms. He states that over the past few days he has been having numbness on the left side of his body. He reports having a headache at home. He also reports the bottom of his left foot was very sore. He states that he felt like he could feel his heart beating fast. He does have a history of atrial fibrillation. The patient claims he is feeling his atrial fibrillation act up 3-4 times per week. Patient has been noted to be in sinus mechanism with no evidence of atrial fibrillation on telemetry since coming to the hospital. Patient reports having some chest discomfort yesterday which she reports was minor in the morning and then continued to worsen as the day went on. He states the pain lasted pretty much all day. Patient also complaining of mild abdominal pain this morning. Patient also complains of shortness of breath. Patient also complaining of having some blood in his stool recently. His hemoglobin has remained stable. Patient does report having a history of syncope however no syncopal episodes recently. DIAGNOSTICS: - EKG reveals sinus mechanism with no signs of acute ischemia. - Chest xray negative for acute process - Laboratory data: WBC 5.14. Hemoglobin 12.9. Platelet count 180. Sodium 140. Potassium 4.4. BUN 10. Creatinine 0.80 troponin negative x 3. proBNP 109. - Current home cardiac medications include Eliquis 5 mg twice a day, aspirin 81 mg daily, atorvastatin 80 mg at night, metoprolol tartrate 25 mg twice a day, va lsartan 320 mg daily. - Patient underwent DREW with Dr. Wolfe on 11/15/2024 revealing EF 50 to 55%, no left atrial appendage thrombus. Positive PFO. - Most recent echocardiogram obtained in November 2023 revealing ejection fraction 50% with trace TR - Cardiac catheterization history: June 2024 revealing normal coronary arteries REVIEW OF SYSTEMS: At the time of my exam: CONSTITUTIONAL: Denies fever or chills. HEENT: Denies blurred vision, vision changes, or eye pain. Denies hemoptysis CARDIOVASCULAR: Denies chest pain. Denies orthopnea. Denies PND. Denies palpitations RESPIRATORY: Denies shortness of breath. GASTROINTESTINAL: Denies abdominal pain. Denies nausea or vomiting. HEMATOLOGIC: Denies bleeding disorders. GENITOURINARY: Denies any blood in urine. SKIN: Denies pruitis. Denies rash. PHYSICAL EXAM: VITAL SIGNS: Reviewed. GENERAL: Well-developed in no acute distress. HEENT: Head is normocephalic. Pupils are equal, round. Sclerae anicteric. Mucous membranes of the mouth are moist. Neck supple. No JVD or thyromegaly LUNGS: Respirations even and unlabored. Lungs essentially clear to auscultation bilaterally. HEART: Regular rate and rhythm. S1 and S2 heard. ABDOMEN: Soft. Nondistended. Nontender. EXTREMITIES: Normal range of motion. No clubbing or cyanosis. Peripheral pulses intact. No lower extremity edema NEUROLOGIC: Awake and alert. Oriented x 3. ASSESSMENT: Left-sided weakness Recent CVA Chest pain, troponin negative x 3 Paroxysmal atrial fibrillation with previous ablation History of DVT Normal coronary arteries, per cardiac catheterization, 2023 Positive PFO, per DREW in 11/2024 Obstructive sleep apnea Hypertension Chronic venous insufficiency Obesity: BMI 42.4 PLAN: An acute coronary event has been ruled out Resume home cardiac medications No need to repeat echocardiogram as patient underwent DREW in 11/2024 Patient has been maintaining sinus mechanism with no evidence of atrial fibrillation during hospitalization. May discuss further long-term monitoring with Dr. Wolfe at follow-up appointment Patient is stable from a cardiac standpoint Patient to follow-up postdischarge with Dr. Wolfe Nurse practitioner note has been reviewed by physician. Signing provider agrees with the documented findings, assessment, and plan of care documented by [employer]IN [employer] as a scribe. Past Medical History Past Medical History: Atrial Fibrillation, Blood Disorder, Deep Vein Thrombosis (DVT), GERD/Reflux, Hearing Disorder / Deafness, Hypertension, Myocardial Infarction ([place]), Osteoarthritis (OA), Sleep Apnea/CPAP/BIPAP Additional Past Medical History / Comment(s): DVT X 3- LAST TIME 2012- LT LEG, LUMBAR DDD- . HAS HX MTHFR GENE MUTATION-POSITIVE FOR HETEROZYGOUS PER DR. FRANCISCO'S OFFICE, doesn't not use CPAP, occasional swelling left lower leg Last Myocardial Infarction Date:: 09/2021 History of Any Multi-Drug Resistant Organisms: None Reported Past Surgical History: Bariatric Surgery, Cardiac Ablation, Cholecystectomy, Heart Catheterization, Joint Replacement Additional Past Surgical History / Comment(s): LEFT KNEE REPLACEMENT, LT INDEX JOINT REPLACEMENT, PAIN CLINIC PROCEDURES, COLONOSCOPY, EGD. Gastric bypass 07-06-23 Past Anesthesia/Blood Transfusion Reactions: Previous Problems w/ Anesthesia, Family History of Problems w/ Anesthesia, Motion Sickness Additional Past Anesthesia/Blood Transfusion Reaction / Comment(s): HARD TO PUT TO SLEEP-(pt and father)-needs more than normal. no hx blood transfusion Past Psychological History: Depression Smoking Status: Never smoker Past Alcohol Use History: Rare Past Drug Use History: None Reported - Past Family History Sister(s) Family Medical History: Cancer Additional Family Medical History / Comment(s): Skin cancer. Mother History Unknown: Yes Medications and Allergies Home Medications Medication Instructions Recorded Confirmed Type Omeprazole 40 mg PO DAILY 07/10/23 11/20/24 History Cyclobenzaprine HCl 10 mg PO TID PRN 11/18/23 11/20/24 History Valsartan 320 mg PO DAILY 11/18/23 11/20/24 History Ferrous Sulfate [Iron (65 MG 325 mg PO BID 11/30/23 11/20/24 History Elemental)] EPINEPHrine (Auto Inject) [Epipen] 0.3 mg IM ONCE PRN 01/16/24 11/20/24 History clonazePAM [KlonoPIN] 1 mg PO QID 01/16/24 11/20/24 History Aspirin 81 mg PO DAILY 30 Days #30 tab 02/10/24 11/20/24 Rx Acetaminophen Tab [Tylenol] 1,000 mg PO Q6HR PRN #30 tablet 06/03/24 11/20/24 Rx Apixaban [Eliquis] 5 mg PO BID 06/03/24 11/20/24 History Lactulose [Constulose] 30 gm PO BID 06/08/24 11/20/24 History Loratadine 10 mg PO DAILY 06/08/24 11/20/24 History Metoprolol Tartrate [Lopressor] 25 mg PO BID 06/08/24 11/20/24 History Docusate [Colace] 100 mg PO BID #60 capsule 07/27/24 11/20/24 Rx Atorvastatin [Lipitor] 80 mg PO HS 11/17/24 11/20/24 History Gabapentin 600 mg PO TID 11/17/24 11/20/24 History Tamsulosin HCl [Flomax] 0.4 mg PO DAILY 11/17/24 11/20/24 History oxyCODONE-APAP 10-325MG [Percocet 1 tab PO Q6H PRN 11/17/24 11/20/24 History 10-325 mg] Cyanocobalamin (Vitamin B-12) 1,000 mcg PO DAILY #30 tablet 11/19/24 11/20/24 Rx [Vitamin B-12] Folic Acid 1 mg PO DAILY #60 tablet 11/19/24 11/20/24 Rx Lidocaine 4% Patch 1 patch TOPICAL DAILY #14 patch 11/21/24 Rx Allergies Allergy/AdvReac Type Severity Reaction Status Date / Time No Known Allergies Allergy Verified 11/20/24 13:39 Physical Exam Vitals: Vital Signs Temp Pulse Pulse Resp BP BP Pulse Ox 11/21/24 07:00 97.6 F 72 16 126/73 97 11/21/24 02:31 97.9 F 74 15 120/80 97 11/20/24 18:14 97.8 F 14 126/72 99 11/20/24 17:30 77 16 118/77 97 11/20/24 12:54 79 16 99/64 97 11/20/24 11:28 98.5 F 59 L 18 91/57 99 Intake and Output 11/20/24 11/21/24 11/21/24 22:59 06:59 14:59 Intake Total 0 Balance 0 Intake: Oral 0 Other: # Voids 1 2 Weight 149.685 kg Results 11/21/24 05:11 11/21/24 05:11 Cardiac Enzymes 11/20/24 11/20/24 11/20/24 Range/Units 11:49 11:49 14:36 AST 13 L (17-59) U/L Troponin I <0.012 <0.012 (0.000-0.034) ng/mL 11/20/24 Range/Units 17:34 AST (17-59) U/L Troponin I <0.012 (0.000-0.034) ng/mL Coagulation 11/20/24 Range/Units 11:49 PT 10.7 (10.0-12.5) sec APTT 25.0 (22.0-30.0) sec CBC 11/20/24 Range/Units 11:49 WBC 12.4 H (3.8-10.6) k/uL RBC 5.05 (4.30-5.90) m/uL Hgb 13.8 (13.0-17.5) gm/dL Hct 42.2 (39.0-53.0) % Plt Count 184 (150-450) k/uL Comprehensive Metabolic Panel 11/20/24 Range/Units 11:49 Sodium 135 L (137-145) mmol/L Potassium 4.0 (3.5-5.1) mmol/L Chloride 99 (98-107) mmol/L Carbon Dioxide 31 H (22-30) mmol/L BUN 14 (9-20) mg/dL Creatinine 0.95 (0.66-1.25) mg/dL Glucose 84 (74-99) mg/dL Calcium 9.0 (8.4-10.2) mg/dL AST 13 L (17-59) U/L ALT 12 (4-49) U/L Alkaline Phosphatase 88 (38-126) U/L Total Protein 5.8 L (6.3-8.2) g/dL Albumin 3.6 (3.5-5.0) g/dL Current Medications Generic Name Dose Route Start Last Admin Trade Name Freq PRN Reason Stop Dose Admin Acetaminophen 1,000 mg 11/20/24 13:49 Acetaminophen Tab 500 Mg Tab PO Q6HR PRN Mild Pain Apixaban 5 mg 11/20/24 21:00 11/20/24 20:53 Apixaban 5 Mg Tab PO 5 mg BID [facility] Administration Protocol Aspirin 81 mg 11/21/24 09:00 Aspirin 81 Mg PO DAILY [facility] Atorvastatin Calcium 80 mg 11/20/24 21:00 11/20/24 20:53 Atorvastatin 80 Mg Tab PO 80 mg HS [facility] Administration Clonazepam 1 mg 11/20/24 18:00 11/20/24 22:17 Clonazepam 1 Mg Tab PO 1 mg QID [facility] Administration Cyanocobalamin 1,000 mcg 11/21/24 09:00 Cyanocobalamin 500 Mcg Tab PO DAILY [facility] Cyclobenzaprine HCl 10 mg 11/20/24 13:49 Cyclobenzaprine 10 Mg Tab PO TID PRN Pain Docusate Sodium 100 mg 11/20/24 21:00 11/20/24 20:53 Docusate 100 Mg Cap PO 100 mg BID [facility] Administration Ferrous Sulfate 325 mg 11/20/24 21:00 11/20/24 20:53 Ferrous Sulfate 325 Mg Tab PO 325 mg BID [facility] Administration Folic Acid 1 mg 11/21/24 09:00 Folic Acid 1 Mg Tab PO DAILY [facility] Gabapentin 600 mg 11/20/24 16:00 11/20/24 20:52 Gabapentin 300 Mg Cap PO 600 mg TID [facility] Administration Lactulose 30 gm 11/20/24 21:00 11/20/24 20:54 Lactulose 20 Gm/30 Ml Cup PO Not Given BID [facility] Lidocaine 1 patch 11/20/24 14:00 11/20/24 14:10 Lidocaine 4% Patch TOPICAL 1 patch DAILY [facility] Administration Protocol Loratadine 10 mg 11/21/24 09:00 Loratadine 10 Mg Tab PO DAILY [facility] Metoprolol Tartrate 25 mg 11/20/24 21:00 11/20/24 20:52 Metoprolol Tartrate 25 Mg Tab PO 25 mg BID [facility] Administration Naloxone HCl 0.2 mg 11/20/24 13:36 Naloxone 0.4 Mg/Ml 1 Ml Vial IV Q2M PRN Opioid Reversal Ondansetron HCl 4 mg 11/20/24 13:36 Ondansetron 4 Mg/2 Ml Vial IVP Q8HR PRN Nausea And Vomiting Oxycodone/Acetaminophen 1 each 11/20/24 13:38 11/21/24 02:41 Oxycodone-Apap 10-325mg 1 Each Tab PO 1 each Q6H PRN Administration Pain Pantoprazole Sodium 40 mg 11/21/24 07:30 11/21/24 05:43 Pantoprazole 40 Mg Tablet PO 40 mg [id number] [facility] Administration Tamsulosin HCl 0.4 mg 11/21/24 09:00 Tamsulosin 0.4 Mg Cap.Er.24h PO DAILY [facility] Valsartan 320 mg 11/21/24 09:00 Valsartan 160 Mg Tab PO DAILY [facility] Intake and Output 11/20/24 11/21/24 11/21/24 22:59 06:59 14:59 Intake Total 0 Balance 0 Intake: Oral 0 Other: # Voids 1 2 Weight 149.685 kg 11/20/24 11:49 11/20/24 11:49
== END 2024-11-21 10:50 | disposition home or self-care (01) ==
LOC: EC 11:24 → 6NMEDSUR 13:36
PROVIDERS: ADMIT Student in an Organized Health Care Education/Training Program; ATTEND Student in an Organized Health Care Education/Training Program
DX: M94.0 Chondrocostal junction syndrome [Tietze] (principal); R53.1 Weakness; G89.29 Other chronic pain; M54.50 Low back pain, unspecified; K59.09 Other constipation; E61.1 Iron deficiency; D72.829 Elevated white blood cell count, unspecified; I48.0 Paroxysmal atrial fibrillation; K21.9 Gastro-esophageal reflux disease without esophagitis; I10 Essential (primary) hypertension; F32.A Depression, unspecified; G47.33 Obstructive sleep apnea (adult) (pediatric); Q21.12 Patent foramen ovale; E78.5 Hyperlipidemia, unspecified; I25.10 Atherosclerotic heart disease of native coronary artery without angina pectoris; F11.90 Opioid use, unspecified, uncomplicated; I25.2 Old myocardial infarction; I87.2 Venous insufficiency (chronic) (peripheral); E66.01 Morbid (severe) obesity due to excess calories; Z68.41 Body mass index [BMI] 40.0-44.9, adult; Z86.718 Personal history of other venous thrombosis and embolism; Z86.73 Personal history of transient ischemic attack (TIA), and cerebral infarction without residual deficits; Z79.01 Long term (current) use of anticoagulants; Z79.82 Long term (current) use of aspirin; Z79.899 Other long term (current) drug therapy
CPT/HCPCS: 96361; 96374; 99285; 36415; 94760; 93005; 92523; 83880; 80053 ×2; 83690; 83735; 84484; 85025 ×2; 85610; 85730; 71046; 70450; G0378 ×2; J1171

== ENCOUNTER 2024-12-03 14:46 | Inpatient (IN) | payer OTHER ==
[2024-12-03 15:04] LABS: Glucose,Whole Blood 99 mg/dL (70-110)
[2024-12-03 15:26] LABS: Basophils % (A) 0 %; Eosinophils # (A) 0.2 k/uL (0-0.7); Eosinophils % (A) 2 %; HGB 13.5 gm/dL (13.0-17.5); Hypochromasia Slight; Lymphocytes # (A) 1.7 k/uL (1.0-4.8); Lymphocytes % (A) 18 %; MCH 26.6 pg (25.0-35.0); MCHC 32.1 g/dL (31.0-37.0); Mean Platelet Volume 6.7; Monocytes # (A) 0.4 k/uL (0-1.0); Monocytes % (A) 4 %; Neutrophils # (A) 7.4 k/uL (1.3-7.7); Neutrophils % (A) 75 %; Platelet Count 285 k/uL (150-450); RBC 5.06 m/uL (4.30-5.90); RDW 14.4 % (11.5-15.5); WBC 9.8 k/uL (3.8-10.6)
[2024-12-03 15:36] LABS: ALT 10 U/L (4-49); AST 17 U/L (17-59); African American GFR (CKD) >90 (>60 ml/min/1.73 sqM); Alkaline Phosphatase 69 U/L (38-126); Anion Gap 7 mmol/L; Blood Urea Nitrogen 9 mg/dL (9-20); Calcium 9.7 mg/dL (8.4-10.2); Carbon Dioxide 27 mmol/L (22-30); Chloride 105 mmol/L (98-107); Creatine Kinase 48 U/L (55-170); Glucose 107 mg/dL (74-99); Non-African American GFR(CKD) >90 (>60 ml/min/1.73 sqM); Potassium 4.5 mmol/L (3.5-5.1); Sodium 139 mmol/L (137-145); Total Bilirubin 0.5 mg/dL (0.2-1.3); Total Protein 6.4 g/dL (6.3-8.2)
--- NOTE | 2024-12-03 15:43 | ED ---
Neuro HPI - General Chief Complaint: Neuro Symptoms/Deficit Stated Complaint: LS Numb/Fatigue/Left Eye Fuzzy Time Seen by Provider: 12/03/24 15:19 Source: patient, RN notes reviewed, old records reviewed Mode of arrival: ambulatory Limitations: no limitations - History of Present Illness Is the patient presenting with stroke symptoms?: Yes -: hour(s) (8) Initial Comments: This is a 44-year-old male with multiple complaints today, first and foremost left-sided left arm weakness left leg weakness as well as slurred speech history of CVA, on Eliquis. Patient also having severe headache currently did take nitro and aspirin prior to arrival no chest pain no shortness of breath no other complaints Location: speech, left arm, left leg Place: home Severity: moderate Improves With: none Worsens With: none On Anticoagulants: Yes Associated Symptoms: denies other symptoms Treatments Prior to Arrival: none - Related Data Home Medications: Home Medications Medication Instructions Recorded Confirmed Omeprazole 40 mg PO DAILY 07/10/23 12/03/24 Cyclobenzaprine HCl 10 mg PO TID PRN 11/18/23 12/03/24 Valsartan 320 mg PO DAILY 11/18/23 12/03/24 Ferrous Sulfate [Iron (65 MG 325 mg PO BID 11/30/23 12/03/24 Elemental)] EPINEPHrine (Auto Inject) [Epipen] 0.3 mg IM ONCE PRN 01/16/24 12/03/24 clonazePAM [KlonoPIN] 1 mg PO DAILY 01/16/24 12/03/24 Apixaban [Eliquis] 5 mg PO BID 06/03/24 12/03/24 Lactulose [Constulose] 30 gm PO BID 06/08/24 12/03/24 Loratadine 10 mg PO DAILY 06/08/24 12/03/24 Atorvastatin [Lipitor] 80 mg PO HS 11/17/24 12/03/24 Gabapentin 600 mg PO TID 11/17/24 12/03/24 Tamsulosin HCl [Flomax] 0.4 mg PO DAILY 11/17/24 12/03/24 oxyCODONE-APAP 10-325MG [Percocet 1 tab PO Q4-6H PRN 11/17/24 12/03/24 10-325 mg] clonazePAM [KlonoPIN] 2 mg PO BID@1200,2100 12/03/24 12/03/24 Previous Rx's Medication Instructions Recorded Acetaminophen Tab [Tylenol] 1,000 mg PO Q6HR PRN #30 tablet 06/03/24 Docusate [Colace] 100 mg PO BID #60 capsule 07/27/24 Cyanocobalamin (Vitamin B-12) 1,000 mcg PO DAILY #30 tablet 11/19/24 [Vitamin B-12] Folic Acid 1 mg PO DAILY #60 tablet 11/19/24 Lidocaine 4% Patch 1 patch TOPICAL DAILY #14 patch 11/21/24 Clopidogrel [Plavix] 75 mg PO DAILY 30 Days #30 tablet 12/06/24 niCARdipine HCL 20 mg PO TID 30 Days #90 cap 12/06/24 Allergies/Adverse Reactions: Allergies Allergy/AdvReac Type Severity Reaction Status Date / Time No Known Allergies Allergy Verified 12/03/24 17:53 Review of Systems ROS Statement: Those systems with pertinent positive or pertinent negative responses have been documented in the HPI. ROS Other: All systems not noted in ROS Statement are negative. General Exam Limitations: no limitations General appearance: alert, in no apparent distress Head exam: Present: atraumatic, normocephalic, normal inspection Eye exam: Present: normal appearance, PERRL, EOMI. Absent: scleral icterus, c onjunctival injection, periorbital swelling ENT exam: Present: normal exam, mucous membranes moist Neck exam: Present: normal inspection. Absent: tenderness, meningismus, lymphadenopathy Respiratory exam: Present: normal lung sounds bilaterally. Absent: respiratory distress, wheezes, rales, rhonchi, stridor Cardiovascular Exam: Present: regular rate, normal rhythm, normal heart sounds. Absent: systolic murmur, diastolic murmur, rubs, gallop, clicks GI/Abdominal exam: Present: soft, normal bowel sounds. Absent: distended, tenderness, guarding, rebound, rigid Extremities exam: Present: normal inspection, full ROM, normal capillary refill. Absent: tenderness, pedal edema, joint swelling, calf tenderness Back exam: Present: normal inspection Neurological exam: Present: alert, oriented X3, CN II-XII intact Psychiatric exam: Present: normal affect, normal mood Skin exam: Present: warm, dry, intact, normal color. Absent: rash Stroke MDM - Lab Data Result diagrams: 12/03/24 15:17 12/03/24 15:17 Lab Results 12/03/24 12/03/24 12/03/24 Range/Units 15:01 15:17 15:17 WBC 9.8 (3.8-10.6) k/uL RBC 5.06 (4.30-5.90) m/uL Hgb 13.5 (13.0-17.5) gm/dL Hct 42.0 (39.0-53.0) % MCV 83.0 (80.0-100.0) fL MCH 26.6 (25.0-35.0) pg MCHC 32.1 (31.0-37.0) g/dL RDW 14.4 (11.5-15.5) % Plt Count 285 (150-450) k/uL MPV 6.7 Neutrophils % 75 % Lymphocytes % 18 % Monocytes % 4 % Eosinophils % 2 % Basophils % 0 % Neutrophils # 7.4 (1.3-7.7) k/uL Lymphocytes # 1.7 (1.0-4.8) k/uL Monocytes # 0.4 (0-1.0) k/uL Eosinophils # 0.2 (0-0.7) k/uL Basophils # 0.0 (0-0.2) k/uL Hypochromasia Slight PT 11.0 (10.0-12.5) sec INR 1.0 (<1.2) APTT 24.3 (22.0-30.0) sec Sodium (137-145) mmol/L Potassium (3.5-5.1) mmol/L Chloride (98-107) mmol/L Carbon Dioxide (22-30) mmol/L Anion Gap mmol/L BUN (9-20) mg/dL Creatinine (0.66-1.25) mg/dL Est GFR (CKD-EPI)AfAm (>60 ml/min/1.73 sqM) Est GFR (CKD-EPI)NonAf (>60 ml/min/1.73 sqM) Glucose (74-99) mg/dL POC Glucose (mg/dL) 99 (70-110) mg/dL POC Glu Equipment Technician ID Angelito Ines Calcium (8.4-10.2) mg/dL Phosphorus (2.5-4.5) mg/dL Magnesium (1.6-2.3) mg/dL Total Bilirubin (0.2-1.3) mg/dL AST (17-59) U/L ALT (4-49) U/L Alkaline Phosphatase (38-126) U/L Creatine Kinase (55-170) U/L Troponin I (0.000-0.034) ng/mL Total Protein (6.3-8.2) g/dL Albumin (3.5-5.0) g/dL 12/03/24 12/03/24 12/03/24 Range/Units 15:17 15:17 15:17 WBC (3.8-10.6) k/uL RBC (4.30-5.90) m/uL Hgb (13.0-17.5) gm/dL Hct (39.0-53.0) % MCV (80.0-100.0) fL MCH (25.0-35.0) pg MCHC (31.0-37.0) g/dL RDW (11.5-15.5) % Plt Count (150-450) k/uL MPV Neutrophils % % Lymphocytes % % Monocytes % % Eosinophils % % Basophils % % Neutrophils # (1.3-7.7) k/uL Lymphocytes # (1.0-4.8) k/uL Monocytes # (0-1.0) k/uL Eosinophils # (0-0.7) k/uL Basophils # (0-0.2) k/uL Hypochromasia PT (10.0-12.5) sec INR (<1.2) APTT (22.0-30.0) sec Sodium 139 (137-145) mmol/L Potassium 4.5 (3.5-5.1) mmol/L Chloride 105 (98-107) mmol/L Carbon Dioxide 27 (22-30) mmol/L Anion Gap 7 mmol/L BUN 9 (9-20) mg/dL Creatinine 0.88 (0.66-1.25) mg/dL Est GFR (CKD-EPI)AfAm >90 (>60 ml/min/1.73 sqM) Est GFR (CKD-EPI)NonAf >90 (>60 ml/min/1.73 sqM) Glucose 107 H (74-99) mg/dL POC Glucose (mg/dL) (70-110) mg/dL POC Glu Equipment Technician ID Calcium 9.7 (8.4-10.2) mg/dL Phosphorus 3.8 (2.5-4.5) mg/dL Magnesium 2.0 (1.6-2.3) mg/dL Total Bilirubin 0.5 (0.2-1.3) mg/dL AST 17 (17-59) U/L ALT 10 (4-49) U/L Alkaline Phosphatase 69 (38-126) U/L Creatine Kinase 48 L (55-170) U/L Troponin I <0.012 (0.000-0.034) ng/mL Total Protein 6.4 (6.3-8.2) g/dL Albumin 4.0 (3.5-5.0) g/dL - NIH Stroke Scale 1a. Level of Consciousness: (0) alert 1b. LOC Questions: (0) answers correctly 1c. LOC Commands: (0) performs tasks correctly 2. Best Gaze: (0) normal 3. Visual: (0) no visual loss 4. Facial Palsy: (0) normal symmetrical movement 5a. Motor Arm Left: (2) some gravity effort 5b. Motor Arm Right: (0) no drift 6a. Motor Leg Left: (2) some gravity effort 6b. Motor Leg Right: (0) no drift 7. Limb Ataxia: (1) present 1 limb 8. Sensory: (1) mild/moderate sensory loss 9. Best Language: (1) mild/moderate aphasia 10. Dysarthria: (1) mild/moderate dysarthria 11. Extinction/Inattention: (0) no abnormality - Thrombolytic Inclusion/Exclusion Thrombolytic Exclusion Criteria: Symptom Onset > 4.5 Hours - Medical Decision Making 44 male for CVA symptoms with headache left arm weakness and numbness NIH 6 no i mprovement patient will be admitted for evaluation and treatment patient does believe he has a hole in his heart - Radiology Data Radiology results: report reviewed (CT brain and CTA head neck negative for acute disease), image reviewed - EKG Data -: EKG Interpreted by Me (EKG sinus 70 [place] 144 QRS 100 QTc 406) Past Medical History Past Medical History: Atrial Fibrillation, Blood Disorder, Deep Vein Thrombosis (DVT), GERD/Reflux, Hearing Disorder / Deafness, Hypertension, Myocardial Infarction (NH), Osteoarthritis (OA), Sleep Apnea/CPAP/BIPAP Additional Past Medical History / Comment(s): DVT X 3- LAST TIME 2013- LT LEG, LUMBAR DDD- . HAS HX MTHFR GENE MUTATION-POSITIVE FOR HETEROZYGOUS PER DR. FRANCISCO'S OFFICE, doesn't not use CPAP, occasional swelling left lower leg Last Myocardial Infarction Date:: 09/2021 History of Any Multi-Drug Resistant Organisms: None Reported Past Surgical History: Bariatric Surgery, Cardiac Ablation, Cholecystectomy, Heart Catheterization, Joint Replacement Additional Past Surgical History / Comment(s): LEFT KNEE REPLACEMENT, LT INDEX JOINT REPLACEMENT, PAIN CLINIC PROCEDURES, COLONOSCOPY, EGD. Gastric bypass 07-06-23 Past Anesthesia/Blood Transfusion Reactions: Previous Problems w/ Anesthesia, Family History of Problems w/ Anesthesia, Motion Sickness Additional Past Anesthesia/Blood Transfusion Reaction / Comment(s): HARD TO PUT TO SLEEP-(pt and father)-needs more than normal. no hx blood transfusion Past Psychological History: Depression Smoking Status: Never smoker Past Alcohol Use History: Rare Past Drug Use History: None Reported - Past Family History Sister(s) Family Medical History: Cancer Additional Family Medical History / Comment(s): Skin cancer. Mother History Unknown: Yes Course Vital Signs 12/03/24 12/03/24 12/03/24 14:49 14:57 15:15 Temperature 98 F Pulse Rate 72 69 73 Respiratory 18 16 16 Rate Blood Pressure 124/87 126/73 118/83 O2 Sat by Pulse 97 98 100 Oximetry 12/03/24 12/03/24 12/03/24 16:29 17:00 17:59 Temperature 98.6 F Pulse Rate 69 71 71 Respiratory 17 16 18 Rate Blood Pressure 136/82 130/93 136/76 O2 Sat by Pulse 100 98 98 Oximetry - Reevaluation(s) Reevaluation #1: 12/03/24 15:52 Medical records reviewed Code stroke paged on evaluation Patient woke up with symptoms 830 on Eliquis no tPA Reevaluation #2: 12/03/24 17:48 Patient has no improvement in symptoms still with headache Reevaluation #3: 12/03/24 17:48 Patient informed of results questions answered Reevaluation #4: Was pt. sent in by a medical professional or institution (, PA, TECHNICAL REP, urgent care, hospital, or skilled nursing...) When possible be specific @ -no Did you speak to anyone other than the patient for history (EMS, parent, family, police, friend...)? What history was obtained from this source @ -no Did you review nursing and triage notes (agree or disagree)? Why? @ -agree Are old charts reviewed (outside hosp., previous admission, EMS record, old EKG, old radiological studies, urgent care reports/EKG's, skilled nursing records)? Report findings @ -yes Differential Diagnosis (chest pain, altered mental status, abdominal pain women, abdominal pain men, vaginal bleeding, weakness, fever, dyspnea, syncope, headache, dizziness, GI bleed, back pain, seizure, CVA, palpatations, mental health, musculoskeletal)? @ -prior EKG interpreted by me (3pts min.). @ -yes X-rays interpreted by me (1pt min.). @ -yes negative for acute disease CT interpreted by me (1pt min.). @ -Yes negative for acute disease U/S interpreted by me (1pt. min.). @ -no What testing was considered but not performed or refused? (CT, X-rays, U/S, labs)? Why? @ -none What meds were considered but not given or refused? Why? @ -none Did you discuss the management of the patient with other professionals (professionals i.e. , PA, TECHNICAL REP, lab, RT, psych nurse, licensed master social worker, supervisor [place], teacher, correctional officer captain, case management director)? Give summary @ -no Was smoking cessation discussed for >3mins.? @ -no Was critical care preformed (if so, how long)? @ -no Were there social determinants of health that impacted care today? How? (Homeles sness, low income, unemployed, alcoholism, drug addiction, transportation, low edu. Level, literacy, decrease access to med. care, penitentiary, rehab)? @ -none Was there de-escalation of care discussed even if they declined (Discuss DNR or withdrawal of care, Hospice)? DNR status @ -no What co-morbidities impacted this encounter? (DM, HTN, Smoking, COPD, CAD, Cancer, CVA, ARF, Chemo, Hep., AIDS, mental health diagnosis, sleep apnea, morbid obesity)? @ -none Was patient admitted / discharged? Hospital course, mention meds given and route, prescriptions, significant lab abnormalities, going to OR and other pertinent info. @ - 44 male for CVA symptoms with headache left arm weakness and numbness NIH 6 no improvement patient will be admitted for evaluation and treatment patient does believe he has a hole in his heart Admitted Undiagnosed new problem with uncertain prognosis? @ -no Drug Therapy requiring intensive monitoring for toxicity (Heparin, Nitro, Insulin, Cardizem)? @ -no Were any procedures done? @ -no Diagnosis/symptom? @ -TIA, hypertension, CVA Acute, or Chronic, or Acute on Chronic? @ -Acute Uncomplicated (without systemic symptoms) or Complicated (systemic symptoms)? @ -Complicated Side effects of treatment? @ -no Exacerbation, Progression, or Severe Exacerbation? @ -exacerbation Poses a threat to life or bodily function? How? (Chest pain, USA, NH, pneumonia, PE, COPD, DKA, ARF, appy, cholecystitis, CVA, Diverticulitis, Homicidal, Suicidal, threat to staff... and all critical care pts) @ -yes with CVA Reevaluation #5: Differential CVA Ischemic stroke, hemorrhagic stroke, brain tumor, atypical migraine, Wernicke's encephalopathy, seizure, multiple sclerosis, meningitis, encephalitis, hypoglycemia, Guillain-Camacho, electrolytes disturbance, myasthenia gravis.... This is not meant to be an all-inclusive list - Consultations Consultation #1: Spoke with sound to admit this patient Disposition Clinical Impression: Cerebrovascular accident (CVA), Slurred speech, Headache, Uncontrolled hypertension Disposition: ADMITTED IP TO THIS HOSP Condition: Fair Is patient prescribed a controlled substance at d/c from ED?: No Time of Disposition: 17:30
[2024-12-03] MEDS: SODIUM CHLORIDE 0.9% 1,000 ML IV STA ×2 (15:48→15:49)
[2024-12-03 15:52] LABS: Partial Thromboplastin Time 24.3 sec (22.0-30.0)
--- NOTE | 2024-12-03 16:21 | CT ---
EXAMINATION TYPE: CT brain wo con DATE OF EXAM: 12/03/2024 4:11 PM COMPARISON: . CLINICAL INDICATION: Male, 44 years old with history of neuro, left side weakness/slurred speech TECHNIQUE: Brain: Axial CT images of the brain were obtained with coronal and sagittal reformats created and rev iewed. Contrast used: None. Oral contrast used: None. CT DLP: 1180.5 mGycm, Automated exposure control for dose reduction was used. FINDINGS: Brain: Extra-axial spaces: No abnormal extra-axial fluid collections. Ventricular system: Within normal limits Cerebral parenchyma: No acute intraparenchymal hemorrhage or mass effect. The martin-white junction is well differentiated. Cerebellum: Unremarkable. Mass effect: No evidence of midline shift. Intracranial vasculature: unremarkable Soft tissues: Normal. Calvarium/osseous structures: No depressed skull fracture. Paranasal sinuses and mastoid air cells: Mild scattered paranasal sinus disease. Visualized orbits: Orbital contents are intact. IMPRESSION: No acute intracranial process. *Results of the study were discussed with Dr. Richardson at 4:13 PM on 12/03/2024. [facility], , 12/03/2024 4:19 PM
[2024-12-03] MEDS: ONDANSETRON 4 MG/2 ML VIAL IVP STA (16:29)
[2024-12-03] MEDS: HYDROmorphone 1 MG/ML 1 ML SYRINGE IVP STA (16:30)
[2024-12-03 17:02] LABS: Phosphorus 3.8 mg/dL (2.5-4.5)
--- NOTE | 2024-12-03 17:10 | CT ---
EXAMINATION TYPE: CT angio head neck DATE OF EXAM: 12/03/2024 4:27 PM COMPARISON: Previous CT head study 11/20/2024. CLINICAL INDICATION: Male, 44 years old with history of Neuro deficit, acute, stroke suspected; PHH, left side weakness/slurred speech TECHNIQUE: Axially acquired helical CT angiogram of the head and neck was obtained with contrast. Axi al images are supplemented with 3D reconstructions and MIP images which were post-processed at an in dependent workstation. NASCET criteria used. Contrast used:100ml mL of Isovue 370 with IV Contrast, Oral contrast used: None. CT DLP: 1047.7 mGycm, Automated exposure control for dose reduction was used. FINDINGS: CTA HEAD: No evidence of acute intracranial hemorrhage, mass effect, or midline shift. The ventricles, sulci, a nd cisterns are unremarkable. Vertebral arteries: The vertebral arteries are patent. Vertebral artery dominance: Codominant Basilar artery: The basilar artery is intact. The basilar artery bifurcation is normal. Internal Carotid arteries: The cervical, petrous, cavernous and supraclinoid segments are normal. SARIKA: Patent with no evidence of aneurysm. ACOM: Present without evidence of aneurysm. MCA: Patent with no evidence of aneurysm. FILLER SHREDDER HELPER: Patent with no evidence of aneurysm. PCOM: Hypoplastic bilaterally. Dural sinuses: Patent. CTA NECK: Right Carotid System: The common carotid artery and external carotid artery are patent. The carotid bifurcation demonstrate s no evidence of hemodynamically significant stenosis. The remaining portions of the internal carotid artery demonstrate normal size without significant narrowing. Left Carotid System: The common carotid artery and external carotid artery are patent. The carotid bifurcation demonstrate s no evidence of hemodynamically significant stenosis. The remaining portions of the internal carotid artery demonstrate normal size without significant narrowing. Vertebral arteries are patent without evidence hemodynamically significant stenosis. There is a three-vessel aortic arch. The origins of the great vessels are patent. No evidence of hemo dynamically significant stenosis. Upper thorax: IMPRESSION: 1. No evidence of dissection of the cervical internal carotid arteries or vertebral arteries. 2. No any evidence of significant stenosis at the carotid bifurcations. 3. No evidence of intracranial high-grade stenosis or intracranial aneurysm. [facility], , 12/03/2024 5:08 PM
--- NOTE | 2024-12-03 17:11 | XR ---
EXAMINATION TYPE: XR chest 2V DATE OF EXAM: 12/03/2024 5:02 PM COMPARISON: Previous chest radiograph 11/20/2024. CLINICAL INDICATION: Male, 44 years old with history of altered mental status; [facility] TECHNIQUE: XR chest 2V Frontal and lateral views of the chest. FINDINGS: Lungs/Pleura: There is no evidence of pleural effusion, focal consolidation, or pneumothorax. Pulmonary vascularity: Unremarkable. Heart/mediastinum: Cardiomegaly. Musculoskeletal: No acute osseous pathology. Old left-sided rib fracture deformities. Other findings: None IMPRESSION: No acute cardiopulmonary disease/process. [facility], , 12/03/2024 5:09 PM
[2024-12-03] MEDS: SODIUM CHLORIDE 0.9% 1,000 ML IV SCH (17:50)
[2024-12-03] MEDS ORDERED: ACETAMINOPHEN TAB 500 MG TAB PO PRN (21:32)
[2024-12-03] MEDS: oxyCODONE-APAP 10-325MG 1 EACH TAB PO PRN (21:52)
[2024-12-03] MEDS: GABAPENTIN 300 MG CAP PO SCH (21:52)
[2024-12-03] MEDS: ATORVASTATIN 80 MG TAB PO SCH (21:52)
--- NOTE | 2024-12-04 00:40 | P.HPIM ---
History of Present Illness H&P Date: 12/03/24 Patient is a 44-year-old male with PMH of ? CAD, A-fib status post cardiac ablation on Eliquis, hypertension, hyperlipidemia, GERD, TIA, PILY (not on CPAP), history of DVT presents to the ER with with complaints of feeling of left-sided weakness in upper and lower extremities as well as blurry vision in his left eye. Patient states that he started to feel numbness and tingling in his left upper and lower extremities earlier this morning around 8 AM and by afternoon he started experiencing left-sided weakness associated with blurry vision of left eye. The patient then also reports that he has been experiencing L sided weakness for the past several years but that it may have gotten worse today. He felt very weak and was barely able to stand straight. He also noticed left facial drooping as well as slurred speech. No recent travel or trauma to head. Denies any fall. Patient was recently hospitalized on 11/20/2024 for similar symptoms and was extensively evaluated to rule out CVA/TIA including CT of the brain showed no acute abnormality. Patient was discharged after CVA was ruled out. Patient stated that he continues to feel residual numbness and tingling as well as weakness of left sided in the interim until today when he got worse. Brain MRI from 02/09/2024 also showed no acute intracranial abnormality. Patient also underwent DREW with Dr. Wolfe on 11/15/2024 revealing ejection fraction of 50 to 55% and positive PFO. Patient is currently established with a pain management and neurologist at the [facility] Dr. Melvin Ogden for his chronic lower back pain. Patient states that currently pain is 10 out of 10. However the pain was better while patient was in ED where he got a dose of Dilaudid. At the time of interview, patient states that he continues to feel paresthesia and weakness in left lower and upper extremities but has improved compared to how he presented earlier in the day. He also states that his vision in left eye has improved as well. Laboratory data: WBC 9.8, hemoglobin 13.5, hematocrit 42.0, MCV 83.0, platelet count 285, PT 11.0, INR 1.0, APTT 24.3, sodium 139, potassium 4.5, chloride 105, bicarb 27, BUN 9, creatinine 0.88, glucose 107, calcium 9.7, magnesium 2.0, total bili 0.5, AST 17, ALT 10, ALP 69, creatinine kinase 48, Images: CT brain done in the ER shows no acute intracranial process or abnormalities. CT angio of head and neck done in the ER shows: - No evidence of dissection of the cervical internal carotid arteries or ve rtebral arteries. - No evidence of significant stenosis of the carotid bifurcations. - No evidence of intracranial high-grade stenosis or intracranial aneurysm. Chest x-ray done in the ER interpreted independently shows no acute cardiopulmonary process or disease. EKG done in the ER interpreted independently shows sinus rhythm with ventricular rate of 70 bpm. WV interval 144 ms. QRS duration 100 ms. QTc 4 6 ms. Vitals: Vitals on arrival: Temperature 98 F, pulse rate 72, respiratory rate 18, blood pressure 124/87, oxygen saturation 97% on room air Review of systems: Pertinent positives and negatives as discussed in HPI, a complete review of systems was performed and all other systems are negative. Patient denies chest pain, shortness of breath, abdominal pain, nausea, vomiting Social history: Tobacco: Non-smoker Alcohol: Occasionally Recreational drugs: None Family History: Cancer in the family Physical examination: Vital signs reviewed General: non toxic, no distress, appears at stated age, obese Derm: no unusual rashes/lesions, warm Head: atraumatic, normocephalic, symmetric Eyes: EOMI, no lid lag, anicteric sclera, pupils equal round reactive to light ENT: Nose and ears atraumatic Neck: No cervical lymphadenopathy, trachea midline, supple Mouth: no lip lesion, mucus membranes moist Cardiovascular: S1S2 reg, no murmur, positive dorsalis pedis pulse bilateral, no edema Lungs: CTA bilateral, no rhonchi, no rales, no accessory muscle use Abdominal: soft, nontender to palpation, no guarding Ext: Muscle strength 4 out of 5 in the left upper extremity and lower left extremity. Muscle strength 5 out of 5 in RUL and RLL, no gross muscle atrophy, no contractures, Neuro: CN II-XI grossly intact, no gross focal neuro deficits Psych: Alert, oriented, appropriate affect Assessment/Plan: This is a Patient is a 44-year-old male with PMH of ? CAD, A-fib status post cardiac ablation on Eliquis, hypertension, hyperlipidemia, GERD, sleep apnea, MTHFR gene mutation, TIA, PILY (not on CPAP), history of DVT presents to the ER with with complaints of feeling of left-sided weakness in upper and lower extremities as well as blurry vision in his left eye. . Case was discussed with the Emergency Room provider and decision was made to admit the patient for concerns regarding CVA, rule out CVA #Left upper and lower extremity paresthesia and weakness #Rule out CVA #Hx of DREW positive for PFO CT brain and CT angio head and neck in the ER are unremarkable Vitamin B12 293, TSH 0.695 and RBC folate 447 ordered on 11/18/2024 Brain MRI from 02/09/2024 also showed no acute intracranial abnormality. DREW on 11/15/2024 showed ejection fraction of 50 to 55% and positive PFO. Neurochecks Consult neurology Consult cardiology Consult PT OT Consult speech therapy Obtain LE venous Duplex #Hyperglycemia Glucose 106 Accu-Chek and sliding scale insulin #Chronic lower back pain Resume Percocet 10-325 mg 1 tab p.o. every every 4-6 hour as needed Resume gabapentin 600 mg p.o. 3 times daily and acetaminophen 1000 mg p.o. every 6 hours as needed Patient following an outpatient pain management and neurologist. Chronic condition: Chronic constipation: Resume docusate 100 mg p.o. twice daily Hypertension: Resume valsartan 320 mg p.o. daily, Lopressor 25 mg p.o. twice daily, BPH: Resume Flomax 0.4 mg p.o. daily Iron deficiency anemia: Resume ferrous sulfate 325 mg p.o. twice daily Hyperlipidemia: Resume atorvastatin 80 mg p.o. at bedtime DVT prophylaxis: Eliquis GI prophylaxis: Omeprazole 40 mg p.o. daily F: None E: Replete as needed N: Speech therapy consulted A: Patient ambulatory at baseline The patient is admitted with an anticipated less than than 2 midnight stay for evaluation of stroke/TIA, rule out CVA CODE STATUS: Full code Discussed with: Patient Anticipated discharge place: Pending clinical course Dictation was produced using [employer] dictation software. Please excuse any grammatical, word or spelling errors. Past Medical History Past Medical History: Atrial Fibrillation, Blood Disorder, Deep Vein Thrombosis (DVT), GERD/Reflux, Hearing Disorder / Deafness, Hypertension, Myocardial Infarction (MO), Osteoarthritis (OA), Sleep Apnea/CPAP/BIPAP Additional Past Medical History / Comment(s): DVT X 3- LAST TIME 2012- LT LEG, LUMBAR DDD- . HAS HX MTHFR GENE MUTATION-POSITIVE FOR HETEROZYGOUS PER DR. FRANCISCO'S OFFICE, doesn't not use CPAP, occasional swelling left lower leg Last Myocardial Infarction Date:: 09/2021 History of Any Multi-Drug Resistant Organisms: None Reported Past Surgical History: Bariatric Surgery, Cardiac Ablation, Cholecystectomy, Heart Catheterization, Joint Replacement Additional Past Surgical History / Comment(s): LEFT KNEE REPLACEMENT, LT INDEX JOINT REPLACEMENT, PAIN CLINIC PROCEDURES, COLONOSCOPY, EGD. Gastric bypass 07-06-23 Past Anesthesia/Blood Transfusion Reactions: Previous Problems w/ Anesthesia, Family History of Problems w/ Anesthesia, Motion Sickness Additional Past Anesthesia/Blood Transfusion Reaction / Comment(s): HARD TO PUT TO SLEEP-(pt and father)-needs more than normal. no hx blood transfusion Past Psychological History: Depression Smoking Status: Never smoker Past Alcohol Use History: Rare Additional Past Alcohol Use History / Comment(s): . Past Drug Use History: None Reported Additional Drug Use History / Comment(s): . - Past Family History Sister(s) Family Medical History: Cancer Additional Family Medical History / Comment(s): Skin cancer. Mother History Unknown: Yes Medications and Allergies Home Medications Medication Instructions Recorded Confirmed Type Omeprazole 40 mg PO DAILY 07/10/23 12/03/24 History Cyclobenzaprine HCl 10 mg PO TID PRN 11/18/23 12/03/24 History Valsartan 320 mg PO DAILY 11/18/23 12/03/24 History Ferrous Sulfate [Iron (65 MG 325 mg PO BID 11/30/23 12/03/24 History Elemental)] EPINEPHrine (Auto Inject) [Epipen] 0.3 mg IM ONCE PRN 01/16/24 12/03/24 History clonazePAM [KlonoPIN] 1 mg PO DAILY 01/16/24 12/03/24 History Aspirin 81 mg PO DAILY 30 Days #30 tab 02/10/24 12/03/24 Rx Acetaminophen Tab [Tylenol] 1,000 mg PO Q6HR PRN #30 tablet 06/03/24 12/03/24 Rx Apixaban [Eliquis] 5 mg PO BID 06/03/24 12/03/24 History Lactulose [Constulose] 30 gm PO BID 06/08/24 12/03/24 History Loratadine 10 mg PO DAILY 06/08/24 12/03/24 History Metoprolol Tartrate [Lopressor] 25 mg PO BID 06/08/24 12/03/24 History Docusate [Colace] 100 mg PO BID #60 capsule 07/27/24 12/03/24 Rx Atorvastatin [Lipitor] 80 mg PO HS 11/17/24 12/03/24 History Gabapentin 600 mg PO TID 11/17/24 12/03/24 History Tamsulosin HCl [Flomax] 0.4 mg PO DAILY 11/17/24 12/03/24 History oxyCODONE-APAP 10-325MG [Percocet 1 tab PO Q4-6H PRN 11/17/24 12/03/24 History 10-325 mg] Cyanocobalamin (Vitamin B-12) 1,000 mcg PO DAILY #30 tablet 11/19/24 12/03/24 Rx [Vitamin B-12] Folic Acid 1 mg PO DAILY #60 tablet 11/19/24 12/03/24 Rx Lidocaine 4% Patch 1 patch TOPICAL DAILY #14 patch 11/21/24 12/03/24 Rx clonazePAM [KlonoPIN] 2 mg PO BID@1200,2100 12/03/24 12/03/24 History Allergies Allergy/AdvReac Type Severity Reaction Status Date / Time No Known Allergies Allergy Verified 12/03/24 17:53 Physical Exam Vitals: Vital Signs Temp Pulse Pulse Resp BP BP Pulse Ox 12/03/24 21:38 98.3 F 88 18 151/90 96 12/03/24 17:59 98.6 F 71 18 136/76 98 12/03/24 17:00 71 16 130/93 98 12/03/24 16:29 69 17 136/82 100 12/03/24 15:15 73 16 118/83 100 12/03/24 14:57 69 16 126/73 98 12/03/24 14:49 98 F 72 18 124/87 97 Intake and Output 12/03/24 12/03/24 12/03/24 06:59 14:59 22:59 Other: Weight 126.099 kg Results CBC & Chem 7: 12/03/24 15:17 12/03/24 15:17 Labs: Abnormal Lab Results - Last 24 Hours (Table) 12/03/24 Range/Units 15:17 Glucose 107 H (74-99) mg/dL Creatine Kinase 48 L (55-170) U/L Thrombosis Risk Factor Assmnt - Choose All That Apply Any of the Below Risk Factors Present?: Yes Each Factor Represents 1 point: Age 41-60 years, Obesity (BMI >25) Other Risk Factors: Yes Each Risk Factor Represents 3 Points: History of DVT/PE Other congenital or acquired thrombophilia - If yes, enter type in comment: Yes Thrombosis Risk Factor Assessment Total Risk Factor Score: 5 Thrombosis Risk Factor Assessment Level: High Risk
[2024-12-04] MEDS: METOPROLOL TARTRATE 25 MG TAB PO SCH (02:01)
[2024-12-04] MEDS: LACTULOSE 20 GM/30 ML CUP PO SCH (02:01)
[2024-12-04] MEDS: PANTOPRAZOLE 40 MG TABLET PO SCH (06:48)
--- NOTE | 2024-12-04 07:44 | US ---
EXAMINATION TYPE: US venous doppler duplex LE BI DATE OF EXAM: 12/04/2024 7:33 AM COMPARISON: 05/15/2023 08/31/2015 CLINICAL INDICATION: Male, 44 years old with history of r/o dvt; Patient came in for stroke like symp toms - BL LE numbness, left worse than right; New onset swelling , Pain TECHNIQUE: The lower extremity deep venous system is examined utilizing real time linear array sonog matheus with graded compression, color doppler sonography, and spectral doppler. SIDE PERFORMED: Bilateral FINDINGS: VESSELS IMAGED: Common Femoral Vein Deep Femoral Vein Greater Saphenous Vein * Femoral Vein Popliteal Vein Small Saphenous Vein * Proximal Calf Veins (* superficial vessels) Cystic, complex, ? vascular area seen within left popliteal fossa Right Leg: Negative for DVT, Color Doppler imaging shows patency of the vessels. Spectral waveforms are within normal limits. Left Leg: Negative for DVT, Color Doppler imaging shows patency of the vessels. Spectral waveforms a re within normal limits. IMPRESSION: No ultrasound evidence for deep venous thrombosis. Probable large 6.4 x 2.5 cm left popliteal cyst. [facility], , 12/04/2024 7:42 AM
[2024-12-04] MEDS ORDERED: ASPIRIN 325 MG TAB PO SCH (09:00)
[2024-12-04] MEDS: CYANOCOBALAMIN 500 MCG TAB PO SCH (09:10)
[2024-12-04] MEDS: DOCUSATE 100 MG CAP PO SCH (09:10)
[2024-12-04] MEDS: APIXABAN 5 MG TAB PO SCH (09:10)
[2024-12-04] MEDS: FOLIC ACID 1 MG TAB PO SCH (09:11)
[2024-12-04] MEDS: TAMSULOSIN 0.4 MG CAP.ER.24H PO SCH (09:11)
[2024-12-04] MEDS: clonazePAM 1 MG TAB PO SCH ×2 (09:11→21:29)
[2024-12-04] MEDS: ASPIRIN 81 MG PO SCH (09:11)
[2024-12-04] MEDS: FERROUS SULFATE 325 MG TAB PO SCH (09:11)
[2024-12-04] MEDS: VALSARTAN 160 MG TAB PO SCH (09:12)
--- NOTE | 2024-12-04 09:57 | P.PN ---
Subjective Progress Note Date: 12/04/24 Hospital course: Patient is a 44-year-old male with a past medical history of atrial fibrillation status post cardiac ablation on anticoagulation with Eliquis, TIAs, recently diagnosed PFO, hypertension, hyperlipidemia, GERD, MTHFR gene mutation, chronic swelling left lower extremity, and gastric bypass. He presented to the emergency department on 12/03/2024 with a chief complaint of left upper and lower extremity numbness, weakness, and tingling accompanied by reports of difficulties with speech/stuttering and blurred vision of left eye. This is 3rd admit to our facility this month along with one additional known admission to [facility] for similar complaints. Upon arrival to our facility, patient underwent evaluation in the emergency department. Vital signs upon arrival show blood pressure 124/87, heart rate 72, respiratory rate 18, temp 98.0 F, and SpO2 of 97% on room air. EKG completed showing normal sinus rhythm at 70 bpm with no noted T wave or ST abnormality showing no signs of acute ischemia upon personal review and interpretation. Blood glucose 99. CT head negative for acute intracranial process. CTA head no evidence of acute process. CTA neck negative showing no evidence of dissection or significant stenosis. Dopplers bilateral lower extremity negative for DVT. Labs completed and reviewed. CBC unremarkable. Coagulation profile normal findings. BMP normal findings. Blood glucose 107. Magnesium 2.0. Liver profile normal findings. Creatinine kinase low at 48. Troponin was negative at less than 0.012. Patient was admitted under services with consultation to cardiology and neurology. Physical exam: Patient seen and fully evaluated at bedside this morning. He reports continued headache 7 out of 10 at this time. He also states some residual left sided weakness/tingling and mild blurred vision of left eye but states improvement since arrival to our facility. Patient also states that he is having difficulties with occasional stuttering in his speech. Patient requesting Dilaudid for headache, order placed for migraine cocktail with Toradol, Compazine, and Benadryl at this time. Vital signs reviewed and stable. General: Nontoxic, no distress and appears stated age. Derm: Skin warm and dry, normal coloration for ethnicity. Head: Atraumatic, normocephalic and symmetric. Eyes: EOM's intact, no lid lag, and anicteric sclera Mouth: no lip lesions, mucus membranes moist Cardiovascular: regular rate and rhythm with normal S1S2, no murmur, positive posterior tibial pulses bilaterally, and cap refill < 2 seconds. Lungs: Respirations even, regular, and unlabored on room air. Lungs CTA bilaterally, no rhonchi, no rales, no wheezing, and no accessory muscle usage. Abdominal: soft, nontender to palpation, no guarding, no appreciable organomegaly Ext: ROM intact. No gross muscle atrophy, no edema, no contractures Neuro: Speech clear, face symmetrical and CN II-XII grossly intact with no noted focal neuro deficits Psych: Alert and oriented to person, place, time, and situation. Appropriate and pleasant affect. Assessment and Plan of Care: Headache, blurred vision of left eye, difficulties with reported stuttering and left sided weakness/numbness/tingling, rule out TIA versus CVA versus complex migraine History of TIAs Recently diagnosed PFO -Neurology following. Reviewed documentation in chart -Cardiology following, reviewed documentation in chart. -MRI brain without contrast -Continue NIH stroke scale with neuro checks every 4 hours and as needed -Continue aspirin 81 mg daily, Eliquis 5 mg twice daily, and atorvastatin 80 mg nightly. -PT/OT consulted, appreciate recommendations -Speech and language pathologist consulted, appreciate recommendations -Telemetry monitoring. Paroxysmal atrial fibrillation status postcardiac ablation Hypertension Hyperlipidemia MTHFR gene mutation Chronic left lower extremity edema History of DVT -Continue daily medication regimen with Eliquis 5 mg twice daily, aspirin 81 mg daily, atorvastatin 80 mg nightly, metoprolol 25 mg twice daily, and valsartan 320 mg daily. GERD Continue Protonix 40 mg daily. Data and imaging reviewed: -EKG completed showing normal sinus rhythm at 70 bpm with no noted T wave or ST abnormality showing no signs of acute ischemia upon personal review and interpretation. -CT head negative for acute intracranial process. CTA head no evidence of acute process. CTA neck negative showing no evidence of dissection or significant stenosis. Dopplers bilateral lower extremity negative for DVT. -Labs completed and reviewed. CBC unremarkable. Coagulation profile normal f indings. BMP normal findings. Blood glucose 107. Magnesium 2.0. Liver profile normal findings. Creatinine kinase low at 48. Troponin was negative at less than 0.012 -Blood pressure 147/90, heart rate 74, respiratory rate 14, temp 98.0 F, and SpO2 of 97% on room air. CODE STATUS: Full code DVT prophylaxis: Eliquis Anticipated discharge date: Pending clinical course, likely 24 to [address]: Home Patient was seen independently by Nurse Pracitioner. This document was prepared using [id number] dictation software. Please allow for errors in optical systems engineer, while rare they do occur. Jacob Ying J2EE CONSULTANT rendered care for this patient independently, reviewed the findings and plan as documented in the note above and agree with plan. I did not physically speak with or examine the patient on this date. Objective - Vital Signs Vital signs: Vital Signs Temp 97.5 F L 12/04/24 04:00 Pulse 75 12/04/24 04:00 Resp 20 12/04/24 04:00 BP 142/91 12/04/24 04:00 Pulse Ox 99 12/04/24 04:00 FiO2 Intake & Output 12/03/24 12/04/24 12/04/24 18:59 06:59 18:59 Weight 126.099 kg 126.099 kg Other: Voiding Method Toilet - Labs CBC & Chem 7: 12/03/24 15:17 12/03/24 15:17 Labs: Abnormal Lab Results - Last 24 Hours (Table) 12/03/24 Range/Units 15:17 Glucose 107 H (74-99) mg/dL Creatine Kinase 48 L (55-170) U/L
--- NOTE | 2024-12-04 10:09 | P.CRDCN ---
History of Present Illness History of present illness: HISTORY OF PRESENT ILLNESS: This is a 44-year-old male with a past medical history significant for DVT, obstructive sleep apnea, hypertension, normal coronary arteries, paroxysmal atrial fibrillation, and CVA. Patient follows in the office with Dr. Wolfe. We have been asked to see the patient in consultation for "known". Patient examined at the bedside. Patient presented to the hospital with a chief complaint of left-sided weakness that started yesterday. He also reports having dizziness and decreased vision. He states the symptoms lasted for approximately 15 minutes. He states that it was severe enough that he was afraid to drive. He denied having any chest pain or shortness of breath. This is the patients third admission to the hospital this month for neurological symptoms. However patient's neurological workup has been negative at each time. The patient reports that he followed up with his neurologist in [place] and states that his neurologist told him that he needed to have his PFO closed. DIAGNOSTICS: - EKG reveals sinus mechanism with no signs of acute ischemia - Chest xray negative for acute process - Venous Doppler no ultrasound evidence for DVT. Probable large 6.4 x 2.5 cm left popliteal cyst - CT of the brain: Negative for acute process - Laboratory data: WBC 9.8. Hemoglobin 13.5. Platelet count 285. Sodium 139. Potassium 4.5. BUN 9. Creatinine 0.88. Troponin negative x 1. - Current home cardiac medications include valsartan 320 mg daily, metoprolol tartrate 25 mg twice a day, atorvastatin 80 mg at night, aspirin 81 mg daily, Eliquis 5 mg twice a day. - Patient underwent DREW with Dr. Wolfe on 11/15/2024 revealing EF 50 to 55%, no left atrial appendage thrombus. Positive PFO. - Most recent echocardiogram obtained in November 2023 revealing ejection fraction 50% with trace TR - Cardiac catheterization history: June 2024 revealing normal coronary arteries REVIEW OF SYSTEMS: At the time of my exam: CONSTITUTIONAL: Denies fever or chills. HEENT: Denies blurred vision, vision changes, or eye pain. Denies hemoptysis CARDIOVASCULAR: Denies chest pain. Denies orthopnea. Denies PND. Denies palpitations RESPIRATORY: Denies shortness of breath. GASTROINTESTINAL: Denies abdominal pain. Denies nausea or vomiting. HEMATOLOGIC: Denies bleeding disorders. GENITOURINARY: Denies any blood in urine. SKIN: Denies pruitis. Denies rash. PHYSICAL EXAM: VITAL SIGNS: Reviewed. GENERAL: Well-developed in no acute distress. HEENT: Head is normocephalic. Pupils are equal, round. Sclerae anicteric. Mucous membranes of the mouth are moist. Neck supple. No JVD or thyromegaly LUNGS: Respirations even and unlabored. Lungs essentially clear to auscultation bilaterally. HEART: Regular rate and rhythm. S1 and S2 heard. ABDOMEN: Soft. Nondistended. Nontender. EXTREMITIES: Normal range of motion. No clubbing or cyanosis. Peripheral pulses intact. No lower extremity edema NEUROLOGIC: Awake and alert. Oriented x 3. ASSESSMENT: Left-sided weakness, dizziness, and decrease vision Paroxysmal atrial fibrillation with previous ablation History of DVT Normal coronary arteries, per cardiac catheterization, 2023 Positive PFO, per DREW in 11/2024 Obstructive sleep apnea Hypertension Chronic venous insufficiency Obesity: BMI 42.4 History of CVA PLAN: No need to obtain echocardiogram as patient underwent DREW in November 2024 Resume home cardiac medications Patient states that he saw his primary neurologist out of [place] within the last 1 to 2 weeks. He states that his neurologist told him that he needed to have his PFO closed. Will attempt to get records from patient's primary neurology office tomorrow, Thursday, December 05, [address] Wolfe. Unsure if patients symptoms are related to patients PFO. If patient's primary neurologist feels that patient needs to have his PFO closed, Dr. Wolfe will consider closing it. Further recommendations pending patient course Nurse practitioner note has been reviewed by physician. Signing provider agrees with the documented findings, assessment, and plan of care documented by [employer] as a scribe. Past Medical History Past Medical History: Atrial Fibrillation, Blood Disorder, Deep Vein Thrombosis (DVT), GERD/Reflux, Hearing Disorder / Deafness, Hypertension, Myocardial Infarction ([place]), Osteoarthritis (OA), Sleep Apnea/CPAP/BIPAP Additional Past Medical History / Comment(s): DVT X 3- LAST TIME 2012- LT LEG, LUMBAR DDD- . HAS HX MTHFR GENE MUTATION-POSITIVE FOR HETEROZYGOUS PER DR. FRANCISCO'S OFFICE, doesn't not use CPAP, occasional swelling left lower leg Last Myocardial Infarction Date:: 09/2021 History of Any Multi-Drug Resistant Organisms: None Reported Past Surgical History: Bariatric Surgery, Cardiac Ablation, Cholecystectomy, Heart Catheterization, Joint Replacement Additional Past Surgical History / Comment(s): LEFT KNEE REPLACEMENT, LT INDEX JOINT REPLACEMENT, PAIN CLINIC PROCEDURES, COLONOSCOPY, EGD. Gastric bypass 07-06-23 Past Anesthesia/Blood Transfusion Reactions: Previous Problems w/ Anesthesia, Family History of Problems w/ Anesthesia, Motion Sickness Additional Past Anesthesia/Blood Transfusion Reaction / Comment(s): HARD TO PUT TO SLEEP-(pt and father)-needs more than normal. no hx blood transfusion Past Psychological History: Depression Smoking Status: Never smoker Past Alcohol Use History: Rare Additional Past Alcohol Use History / Comment(s): . Past Drug Use History: None Reported Additional Drug Use History / Comment(s): . - Past Family History Sister(s) Family Medical History: Cancer Additional Family Medical History / Comment(s): Skin cancer. Mother History Unknown: Yes Medications and Allergies Home Medications Medication Instructions Recorded Confirmed Type Omeprazole 40 mg PO DAILY 07/10/23 12/03/24 History Cyclobenzaprine HCl 10 mg PO TID PRN 11/18/23 12/03/24 History Valsartan 320 mg PO DAILY 11/18/23 12/03/24 History Ferrous Sulfate [Iron (65 MG 325 mg PO BID 11/30/23 12/03/24 History Elemental)] EPINEPHrine (Auto Inject) [Epipen] 0.3 mg IM ONCE PRN 01/16/24 12/03/24 History clonazePAM [KlonoPIN] 1 mg PO DAILY 01/16/24 12/03/24 History Aspirin 81 mg PO DAILY 30 Days #30 tab 02/10/24 12/03/24 Rx Acetaminophen Tab [Tylenol] 1,000 mg PO Q6HR PRN #30 tablet 06/03/24 12/03/24 Rx Apixaban [Eliquis] 5 mg PO BID 06/03/24 12/03/24 History Lactulose [Constulose] 30 gm PO BID 06/08/24 12/03/24 History Loratadine 10 mg PO DAILY 06/08/24 12/03/24 History Metoprolol Tartrate [Lopressor] 25 mg PO BID 06/08/24 12/03/24 History Docusate [Colace] 100 mg PO BID #60 capsule 07/27/24 12/03/24 Rx Atorvastatin [Lipitor] 80 mg PO HS 11/17/24 12/03/24 History Gabapentin 600 mg PO TID 11/17/24 12/03/24 History Tamsulosin HCl [Flomax] 0.4 mg PO DAILY 11/17/24 12/03/24 History oxyCODONE-APAP 10-325MG [Percocet 1 tab PO Q4-6H PRN 11/17/24 12/03/24 History 10-325 mg] Cyanocobalamin (Vitamin B-12) 1,000 mcg PO DAILY #30 tablet 11/19/24 12/03/24 Rx [Vitamin B-12] Folic Acid 1 mg PO DAILY #60 tablet 11/19/24 12/03/24 Rx Lidocaine 4% Patch 1 patch TOPICAL DAILY #14 patch 11/21/24 12/03/24 Rx clonazePAM [KlonoPIN] 2 mg PO BID@1200,2100 12/03/24 12/03/24 History Allergies Allergy/AdvReac Type Severity Reaction Status Date / Time No Known Allergies Allergy Verified 12/03/24 17:53 Physical Exam Vitals: Vital Signs Temp Pulse Pulse Resp BP BP Pulse Ox 12/04/24 04:00 97.5 F L 75 20 142/91 99 12/04/24 00:00 98.3 F 76 20 133/82 95 12/03/24 21:38 98.3 F 88 18 151/90 96 12/03/24 17:59 98.6 F 71 18 136/76 98 12/03/24 17:00 71 16 130/93 98 12/03/24 16:29 69 17 136/82 100 12/03/24 15:15 73 16 118/83 100 12/03/24 14:57 69 16 126/73 98 12/03/24 14:49 98 F 72 18 124/87 97 Intake and Output 12/03/24 12/04/24 12/04/24 22:59 06:59 14:59 Intake Total 240 Balance 240 Intake: Oral 240 Other: Voiding Method Toilet Weight 130.5 kg Results 12/03/24 15:17 12/03/24 15:17 Cardiac Enzymes 12/03/24 12/03/24 Range/Units 15:17 15:17 AST 17 (17-59) U/L Troponin I <0.012 (0.000-0.034) ng/mL Coagulation 12/03/24 Range/Units 15:17 PT 11.0 (10.0-12.5) sec APTT 24.3 (22.0-30.0) sec CBC 12/03/24 Range/Units 15:17 WBC 9.8 (3.8-10.6) k/uL RBC 5.06 (4.30-5.90) m/uL Hgb 13.5 (13.0-17.5) gm/dL Hct 42.0 (39.0-53.0) % Plt Count 285 (150-450) k/uL Comprehensive Metabolic Panel 12/03/24 Range/Units 15:17 Sodium 139 (137-145) mmol/L Potassium 4.5 (3.5-5.1) mmol/L Chloride 105 (98-107) mmol/L Carbon Dioxide 27 (22-30) mmol/L BUN 9 (9-20) mg/dL Creatinine 0.88 (0.66-1.25) mg/dL Glucose 107 H (74-99) mg/dL Calcium 9.7 (8.4-10.2) mg/dL AST 17 (17-59) U/L ALT 10 (4-49) U/L Alkaline Phosphatase 69 (38-126) U/L Total Protein 6.4 (6.3-8.2) g/dL Albumin 4.0 (3.5-5.0) g/dL Current Medications Generic Name Dose Route Start Last Admin Trade Name Freq PRN Reason Stop Dose Admin Acetaminophen 1,000 mg 12/03/24 21:32 Acetaminophen Tab 500 Mg Tab PO Q6HR PRN Pain Apixaban 5 mg 12/04/24 09:00 12/04/24 09:10 Apixaban 5 Mg Tab PO 5 mg BID LEONARD Administration Protocol Aspirin 81 mg 12/04/24 09:00 12/04/24 09:11 Aspirin 81 Mg PO 81 mg DAILY LEONARD Administration Atorvastatin Calcium 80 mg 12/03/24 21:00 12/03/24 21:52 Atorvastatin 80 Mg Tab PO 80 mg HS LEONARD Administration Clonazepam 1 mg 12/04/24 09:00 12/04/24 09:11 Clonazepam 1 Mg Tab PO 1 mg DAILY LEONARD Administration Cyanocobalamin 1,000 mcg 12/04/24 09:00 12/04/24 09:10 Cyanocobalamin 500 Mcg Tab PO 1,000 mcg DAILY LEONARD Administration Docusate Sodium 100 mg 12/04/24 09:00 12/04/24 09:10 Docusate 100 Mg Cap PO 100 mg BID LEONARD Administration Ferrous Sulfate 325 mg 12/04/24 09:00 12/04/24 09:11 Ferrous Sulfate 325 Mg Tab PO 325 mg BID LEONARD Administration Folic Acid 1 mg 12/04/24 09:00 12/04/24 09:11 Folic Acid 1 Mg Tab PO 1 mg DAILY LEONARD Administration Gabapentin 600 mg 12/03/24 22:00 12/04/24 09:10 Gabapentin 300 Mg Cap PO 600 mg TID LEONARD Administration Lactulose 30 gm 12/04/24 00:45 12/04/24 09:13 Lactulose 20 Gm/30 Ml Cup PO Not Given BID LEONARD Metoprolol Tartrate 25 mg 12/04/24 00:45 12/04/24 09:11 Metoprolol Tartrate 25 Mg Tab PO 25 mg BID LEONARD Administration Oxycodone/Acetaminophen 1 each 12/03/24 21:32 12/04/24 06:48 Oxycodone-Apap 10-325mg 1 Each Tab PO 1 each Q4H PRN Administration Pain Pantoprazole Sodium 40 mg 12/04/24 07:30 12/04/24 06:48 Pantoprazole 40 Mg Tablet PO 40 mg DAILY@0730 [facility] Administration Tamsulosin HCl 0.4 mg 12/04/24 09:00 12/04/24 09:11 Tamsulosin 0.4 Mg Cap.Er.24h PO 0.4 mg DAILY LEONARD Administration Valsartan 320 mg 12/04/24 09:00 12/04/24 09:12 Valsartan 160 Mg Tab PO 320 mg DAILY LEONARD Administration Intake and Output 12/03/24 12/04/24 12/04/24 22:59 06:59 14:59 Intake Total 240 Balance 240 Intake: Oral 240 Other: Voiding Method Toilet Weight 130.5 kg 12/03/24 15:17 12/03/24 15:17
[2024-12-04] MEDS: PROCHLORPERAZINE INJ 10 MG/2 ML VIAL IVP STA (10:50)
[2024-12-04] MEDS: diphenhydrAMINE 50 MG/ML 1 ML VIAL IVP STA (10:50)
[2024-12-04] MEDS: KETOROLAC 15 MG/ML 1 ML VIAL IVP STA (10:50)
--- NOTE | 2024-12-04 13:02 | P.CNNES ---
History of Present Illness Consult date: 12/04/24 Requesting physician: Clint Richardson Reason for Consult: CVA, TIA History of Present Illness: Patient is a 44-year-old right-handed male with history of previous possible TIA, came to the hospital yesterday at 2:46 PM for left-sided symptoms. Patient states that he woke up yesterday at 8:30 AM with headache, left-sided weakness, speech was slurred, could not see out of left side and whole left side was numb and tingling. As the symptoms persisted he came to the ER. Patient has presented with similar symptoms multiple times in the past as well. Patient had a DREW performed in November 2024, and was found to have PFO. Vital signs on arrival blood pressure 124/87 pulse 72 temperature 98.0. Blood test shows normal CBC, PT PTT, normal CMP. Troponin negative, CK normal. CT head showed. Process. I personally reviewed CT head, agree with the findings. No acute process. EKG showed sinus rhythm. Chest x-ray showed no acute cardiopulmonary process. Venous Doppler of the lower extremities negative for DVT. Probable large 6.4 x 2.5 cm left popliteal cyst. Home medications include Lipitor 80 mg, Eliquis 5 mg twice daily, aspirin 81 mg daily, B12 1000 mcg orally daily, folic acid 1 mg, gabapentin 600 mg 3 times daily and others. Patient was seen by myself on 11/18/2024 for transient symptoms including left- sided numbness, blurred vision, weakness left arm that resolved in 6 to 7 hours. Rule out TIA. Patient had a 2D echo performed which was normal. LVEF was 50%. EEG, CTA done with previous admission on 02/08/2024 were normal. Patient was found to have B12 deficiency started on B12 and folic acid. Patient has been seen by myself on 02/09/2024 for possible CVA. Patient had presented at that time with recurrent episodes of focal neurological symptoms of dizziness lightheadedness, left eye blurred vision, slurred speech and leaning to the left side. Patient had a brain MRI done at that time, which was normal. Carotid Doppler showed no evidence of hemodynamically significant stenosis. Patient had a CTA performed 02/08/2024, which revealed no evidence of significant stenosis in the neck. It was a poor study. 2D echo performed 12/01/2023 was significant for low normal LV systolic function with EF 50%. Normal left atrial size. No valvular abnormalities. Patient had a normal EEG on 02/09/2024. Patient has history of hypertension, hyperlipidemia but no diabetes. Denies any history of seizures. Patient states that he had history of mild stroke about 25 years ago with no residual deficits. He has never smoked, drinks alcohol so cially. Patient has history of atrial fibrillation diagnosed 2 years ago, and also has history of DVT. He states he is compliant with the medication. Patient states that he has been suffering from periodic headaches for last 15 years. It happens about 3-6 times a week associated with blurred vision on the left side. Patient states the headache could be mild which he rates 5/10, but sometimes could be bad which he rates 8-9/10. Once it happens, it last for the whole day. The headache is throbbing, left frontotemporal region, occasional nausea and vomiting but he does get light and noise sensitivity with the headache. His mother also suffers from migraines. Review of Systems All pertinent positive and negative review of system mentioned in the HPI, otherwise unremarkable. Past Medical History Past Medical History: Atrial Fibrillation, Blood Disorder, Deep Vein Thrombosis (DVT), GERD/Reflux, Hearing Disorder / Deafness, Hypertension, Myocardial Infarction ([place]), Osteoarthritis (OA), Sleep Apnea/CPAP/BIPAP Additional Past Medical History / Comment(s): DVT X 3- LAST TIME 2012- LT LEG, LUMBAR DDD- . HAS HX MTHFR GENE MUTATION-POSITIVE FOR HETEROZYGOUS PER DR. FRANCISCO'S OFFICE, doesn't not use CPAP, occasional swelling left lower leg Last Myocardial Infarction Date:: 09/2021 History of Any Multi-Drug Resistant Organisms: None Reported Past Surgical History: Bariatric Surgery, Cardiac Ablation, Cholecystectomy, Heart Catheterization, Joint Replacement Additional Past Surgical History / Comment(s): LEFT KNEE REPLACEMENT, LT INDEX JOINT REPLACEMENT, PAIN CLINIC PROCEDURES, COLONOSCOPY, EGD. Gastric bypass 07-06-23 Past Anesthesia/Blood Transfusion Reactions: Previous Problems w/ Anesthesia, Family History of Problems w/ Anesthesia, Motion Sickness Additional Past Anesthesia/Blood Transfusion Reaction / Comment(s): HARD TO PUT TO SLEEP-(pt and father)-needs more than normal. no hx blood transfusion Past Psychological History: Depression Smoking Status: Never smoker Past Alcohol Use History: Rare Additional Past Alcohol Use History / Comment(s): . Past Drug Use History: None Reported Additional Drug Use History / Comment(s): . - Past Family History Sister(s) Family Medical History: Cancer Additional Family Medical History / Comment(s): Skin cancer. Mother History Unknown: Yes Medications and Allergies Home Medications Medication Instructions Recorded Confirmed Type Omeprazole 40 mg PO DAILY 07/10/23 12/03/24 History Cyclobenzaprine HCl 10 mg PO TID PRN 11/18/23 12/03/24 History Valsartan 320 mg PO DAILY 11/18/23 12/03/24 History Ferrous Sulfate [Iron (65 MG 325 mg PO BID 11/30/23 12/03/24 History Elemental)] EPINEPHrine (Auto Inject) [Epipen] 0.3 mg IM ONCE PRN 01/16/24 12/03/24 History clonazePAM [KlonoPIN] 1 mg PO DAILY 01/16/24 12/03/24 History Aspirin 81 mg PO DAILY 30 Days #30 tab 02/10/24 12/03/24 Rx Acetaminophen Tab [Tylenol] 1,000 mg PO Q6HR PRN #30 tablet 06/03/24 12/03/24 Rx Apixaban [Eliquis] 5 mg PO BID 06/03/24 12/03/24 History Lactulose [Constulose] 30 gm PO BID 06/08/24 12/03/24 History Loratadine 10 mg PO DAILY 06/08/24 12/03/24 History Metoprolol Tartrate [Lopressor] 25 mg PO BID 06/08/24 12/03/24 History Docusate [Colace] 100 mg PO BID #60 capsule 07/27/24 12/03/24 Rx Atorvastatin [Lipitor] 80 mg PO HS 11/17/24 12/03/24 History Gabapentin 600 mg PO TID 11/17/24 12/03/24 History Tamsulosin HCl [Flomax] 0.4 mg PO DAILY 11/17/24 12/03/24 History oxyCODONE-APAP 10-325MG [Percocet 1 tab PO Q4-6H PRN 11/17/24 12/03/24 History 10-325 mg] Cyanocobalamin (Vitamin B-12) 1,000 mcg PO DAILY #30 tablet 11/19/24 12/03/24 Rx [Vitamin B-12] Folic Acid 1 mg PO DAILY #60 tablet 11/19/24 12/03/24 Rx Lidocaine 4% Patch 1 patch TOPICAL DAILY #14 patch 11/21/24 12/03/24 Rx clonazePAM [KlonoPIN] 2 mg PO BID@1200,2100 12/03/24 12/03/24 History Allergies Allergy/AdvReac Type Severity Reaction Status Date / Time No Known Allergies Allergy Verified 12/03/24 17:53 Physical Examination - Vital Signs Vital Signs: Vital Signs Temp Pulse Pulse Resp BP BP Pulse Ox 12/04/24 04:00 97.5 F L 75 20 142/91 99 12/04/24 00:00 98.3 F 76 20 133/82 95 12/03/24 21:38 98.3 F 88 18 151/90 96 12/03/24 17:59 98.6 F 71 18 136/76 98 12/03/24 17:00 71 16 130/93 98 12/03/24 16:29 69 17 136/82 100 12/03/24 15:15 73 16 118/83 100 12/03/24 14:57 69 16 126/73 98 12/03/24 14:49 98 F 72 18 124/87 97 Intake and Output 12/03/24 12/04/24 12/04/24 22:59 06:59 14:59 Intake Total 240 Balance 240 Intake: Oral 240 Other: Voiding Method Toilet Weight 130.5 kg Patient is a middle aged male, in no acute distress. Patient appears very comfortable. Patient is alert awake oriented to time place and person. Language functions are normal. Patient can name and repeat very well. No aphasia, although patient appears mildly dysarthric. Attention, concentration and fund of knowledge is adequate. On cranial nerve examination, pupils are equal, round and reacting to light, visual [place] are full on confrontation, with no neglect on double simultaneous stimulation. Extraocular muscles are intact with no nystagmus. Face is symmetric, tongue protrudes to the midline. Palatal elevation and sensation normal, hearing and shoulder shrug normal, facial sensation normal. On muscle strength testing, there is no pronator drift and the strength is n ormal in arms and legs distally and proximally, except left deltoid, which is slightly weak partly from left shoulder pain. Deep tendon reflexes are symmetric 1 at the biceps, 1 brachioradialis, 2 at the right knee, probably absent on the left from previous knee surgery. 1 at ankles and plantars downgoing bilaterally. Sensory to touch is equal in the arms, but decreased in the left leg as compared to the right. There is no neglect on double simultaneous stimulation. Cerebellar function showed no ataxia for [id number] testing. No dysdiadochokinesia. No ataxia for [id number] testing on either side. Tone and bulk of muscles normal. Gait deferred.. On general examination, there is no carotid bruit or murmur, S1-S2 audible. Chest is clear on consultation. Abdomen is soft nontender. No organomegaly, bowel sounds present. Peripheral pulses are present. No peripheral edema. Results - Laboratory Findings CBC and BMP: 12/03/24 15:17 12/03/24 15:17 Abnormal Lab Findings: Abnormal Labs 12/03/24 15:17 Glucose 107 H Creatine Kinase 48 L Assessment and Plan Assessment: * 44-year-old male presenting again with left-sided symptoms including numbness, blurred vision, weakness left arm and slurred speech. Patient still has some residual slurred speech and left leg numbness. Rule out stroke/TIA. Rule out complex migraine. Patient is already on optimal dose of anticoagulation with Eliquis and aspirin 81 mg. * Paroxysmal atrial fibrillation. * PFO noted on DREW. * Migraine headaches * Hypertension * Hyperlipidemia * Atrial fibrillation * History of DVT * Obesity * Vitamin B12 deficiency * Borderline folate * Chronic back pain, asking for Dilaudid. Plan: * Patient is already on optimal dose of medication regimen including Eliquis 5 mg twice daily and aspirin 81 mg daily. Patient still has some residual symptoms. Rule out stroke/TIA * MRI of the brain evaluate for any acute stroke. * CTA of head and neck revealed no evidence of dissection of the cervical internal carotid arteries or vertebral arteries. No evidence of significant stenosis of the carotid bifurcations. No evidence of intracranial high-grade stenosis or intracranial aneurysm. * Patient underwent DREW with Dr. Wolfe on 11/15/2024 revealing EF 50 to 55%, no left atrial appendage thrombus. Positive PFO. * Most recent echocardiogram obtained in November 2023 revealing ejection fraction 50% with trace TR. No need to repeat. * Patient has PFO noted on the DREW. May benefit from PFO closure. * Cardiology has ordered records from patient's outside neurologist. * Hemoglobin A1c 5.6 * Previous Vitamin B1 293, folic acid 8.7. Continue folic acid and B12 replacement. TSH normal. * Patient is asking for Dilaudid for migraine. We will give Fioricet as needed. * Dr. Arik Bob to resume neurology service in the morning. * Thank you for the consult.
[2024-12-04] MEDS ORDERED: ATORVASTATIN 80 MG TAB PO SCH (21:00)
[2024-12-05] MEDS: BUTALB/APAP/CAFF 50-325-40MG TAB PO PRN (06:08)
--- NOTE | 2024-12-05 10:17 | MR ---
INDICATION: Patient age:Male; 44 years old; Reason for study: Stroke/TIA; [facility]. COMPARISON: CT brain 12/03/2024, 11/20/2024, 11/17/2024, 02/08/2024, CTA head and neck 12/03/2024, 02/08/2024, MRI brain 02/09/2024. TECHNIQUE: Multi planar, multi sequence imaging was performed through the brain without administratio n of intravenous contrast. FINDINGS: The martin-white junctions, ventricular system, basal cisterns appear unremarkable. Age-appropriate cer ebral volume. Diffusion-weighted imaging shows no evidence of restricted diffusion to suggest acute/s ubacute infarct. Intracranial arterial flow voids are maintained. Midline structures show no abnormal ity. No new FLAIR signal abnormalities identified. The susceptibility weighted images do not reveal a ny evidence for micro-hemorrhage. The bone marrow signal is within normal limits. The paranasal sinuses and globes are unremarkable. IMPRESSION: No evidence of intracranial mass or acute/subacute infarct. [facility], , 12/05/2024 10:14 AM
[2024-12-05] MEDS ORDERED: clonazePAM 1 MG TAB PO SCH ×2 (12:00→21:15)
--- NOTE | 2024-12-05 12:22 | P.PN ---
Subjective Progress Note Date: 12/05/24 Hospital course: Patient is a 44-year-old male with a past medical history of atrial fibrillation status post cardiac ablation on anticoagulation with Eliquis, TIAs, recently diagnosed PFO, hypertension, hyperlipidemia, GERD, MTHFR gene mutation, chronic swelling left lower extremity, and gastric bypass. He presented to the emergency department on 12/03/2024 with a chief complaint of left upper and lower extremity numbness, weakness, and tingling accompanied by reports of difficulties with speech/stuttering and blurred vision of left eye. This is 3rd admit to our facility this month along with one additional known admission to [facility] for similar complaints. Upon arrival to our facility, patient underwent evaluation in the emergency department. Vital signs upon arrival show blood pressure 124/87, heart rate 72, respiratory rate 18, temp 98.0 F, and SpO2 of 97% on room air. EKG completed showing normal sinus rhythm at 70 bpm with no noted T wave or ST abnormality showing no signs of acute ischemia upon personal review and interpretation. Blood glucose 99. CT head negative for acute intracranial process. CTA head no evidence of acute process. CTA neck negative showing no evidence of dissection or significant stenosis. Dopplers bilateral lower extremity negative for DVT. Labs completed and reviewed. CBC unremarkable. Coagulation profile normal findings. BMP normal findings. Blood glucose 107. Magnesium 2.0. Liver profile normal findings. Creatinine kinase low at 48. Troponin was negative at less than 0.012. Patient was admitted under services with consultation to cardiology and neurology. Physical exam: Patient seen and fully evaluated at bedside this morning shortly after returning from MRI. Patient reports continued headache, stuttering speech, and left upper and lower extremity numbness and tingling. Vital signs reviewed and stable. General: Nontoxic, no distress and appears stated age. Derm: Skin warm and dry, normal coloration for ethnicity. Head: Atraumatic, normocephalic and symmetric. Eyes: EOM's intact, no lid lag, and anicteric sclera Mouth: no lip lesions, mucus membranes moist Cardiovascular: regular rate and rhythm with normal S1S2, no murmur, positive posterior tibial pulses bilaterally, and cap refill < 2 seconds. Lungs: Respirations even, regular, and unlabored on room air. Lungs CTA bilaterally, no rhonchi, no rales, no wheezing, and no accessory muscle usage. Abdominal: soft, nontender to palpation, no guarding, no appreciable organomegaly Ext: ROM intact. No gross muscle atrophy, no edema, no contractures Neuro: Speech clear, face symmetrical and CN II-XII grossly intact with no noted focal neuro deficits Psych: Alert and oriented to person, place, time, and situation. Appropriate and pleasant affect. Assessment and Plan of Care: Headache, blurred vision of left eye, difficulties with reported stuttering and left sided weakness/numbness/tingling, rule out TIA versus CVA versus complex migraine History of TIAs Recently diagnosed PFO -Neurology following. Reviewed documentation in chart -Cardiology following, reviewed documentation in chart. -MRI brain without contrast was completed and showing no evidence of intracranial mass or acute/subacute infarct with no new flair signal abnormalities reported. -Continue NIH stroke scale with neuro checks every 4 hours and as needed -Continue aspirin 81 mg daily, Eliquis 5 mg twice daily, and atorvastatin 80 mg nightly. -PT/OT consulted, appreciate recommendations -Speech and language pathologist consulted, appreciate recommendations -Telemetry monitoring. Paroxysmal atrial fibrillation status postcardiac ablation Hypertension Hyperlipidemia MTHFR gene mutation Chronic left lower extremity edema History of DVT -Continue daily medication regimen with Eliquis 5 mg twice daily, aspirin 81 mg daily, atorvastatin 80 mg nightly, metoprolol 25 mg twice daily, and valsartan 320 mg daily. GERD Continue Protonix 40 mg daily. Data and imaging reviewed: -MRI brain without contrast was completed and showing no evidence of intracranial mass or acute/subacute infarct with no new flair signal abnormalities reported. -Labs reviewed. CBC unremarkable. Coagulation profile normal findings. BMP normal findings. Blood glucose 107. Magnesium 2.0. Liver profile normal findings. Creatinine kinase low at 48. Troponin was negative at less than 0.012 -Blood pressure 142/87, heart rate 65, respiratory rate 16, temp 98.3 F, and SpO2 of 98% on room air. CODE STATUS: Full code DVT prophylaxis: Eliquis Anticipated discharge date: Pending cardiology and neurology clearance Anticipated discharge place: Home Patient was seen independently by Nurse Pracitioner. This document was prepared using [employer] dictation software. Please allow for errors in overseer kosher kitchen, while rare they do occur. Jacob Ying NP rendered care for this patient independently, reviewed the findings and plan as documented in the note above and agree with plan. I did not physically speak with or examine the patient on this date. Objective - Vital Signs Vital signs: Vital Signs Temp 98.0 F 12/05/24 03:50 Pulse 72 12/05/24 03:50 Resp 16 12/05/24 03:50 BP 136/89 12/05/24 03:50 Pulse Ox 97 12/05/24 03:50 FiO2 Intake & Output 12/04/24 12/05/24 12/05/24 18:59 06:59 18:59 Intake Total 560 Balance 560 Weight 130.7 kg Intake: Oral 560 Other: Voiding Method Toilet Toilet # Voids 2 1 - Labs CBC & Chem 7: 12/03/24 15:17 12/03/24 15:17
[2024-12-05] MEDS: diphenhydrAMINE 50 MG/ML 1 ML VIAL IVP STA (12:48)
[2024-12-05] MEDS: KETOROLAC 15 MG/ML 1 ML VIAL IVP STA (12:49)
--- NOTE | 2024-12-05 14:08 | P.PN ---
Subjective Progress Note Date: 12/05/24 HISTORY OF PRESENT ILLNESS: This is a 44-year-old male with a past medical history significant for DVT, obstructive sleep apnea, hypertension, normal coronary arteries, paroxysmal atrial fibrillation, and CVA. Patient follows in the office with Dr. Wolfe. We have been asked to see the patient in consultation for "known". Patient examined at the bedside. Patient presented to the hospital with a chief complaint of left-sided weakness that started yesterday. He also reports having dizziness and decreased vision. He states the symptoms lasted for approximately 15 minutes. He states that it was severe enough that he was afraid to drive. He denied having any chest pain or shortness of breath. This is the patients third admission to the hospital this month for neurological symptoms. However patient's neurological workup has been negative at each time. The patient reports that he followed up with his neurologist in [place] and states that his neurologist told him that he needed to have his PFO closed. DIAGNOSTICS: - EKG reveals sinus mechanism with no signs of acute ischemia - Chest xray negative for acute process - Venous Doppler no ultrasound evidence for DVT. Probable large 6.4 x 2.5 cm left popliteal cyst - CT of the brain: Negative for acute process - Laboratory data: WBC 9.8. Hemoglobin 13.5. Platelet count 285. Sodium 139. Potassium 4.5. BUN 9. Creatinine 0.88. Troponin negative x 1. - Current home cardiac medications include valsartan 320 mg daily, metoprolol tartrate 25 mg twice a day, atorvastatin 80 mg at night, aspirin 81 mg daily, Eliquis 5 mg twice a day. - Patient underwent DREW with Dr. Wolfe on 11/15/2024 revealing EF 50 to 55%, no left atrial appendage thrombus. Positive PFO. - Most recent echocardiogram obtained in November 2023 revealing ejection fraction 50% with trace TR - Cardiac catheterization history: June 2024 revealing normal coronary arteries 12/05 Patient was not seen today as he was gone for MRI. We will obtain records from his neurologist regarding request for PFO closure. PHYSICAL EXAM: VITAL SIGNS: Reviewed. GENERAL: Well-developed in no acute distress. HEENT: Head is normocephalic. Pupils are equal, round. Sclerae anicteric. Mucous membranes of the mouth are moist. Neck supple. No JVD or thyromegaly LUNGS: Respirations even and unlabored. Lungs essentially clear to auscultation bilaterally. HEART: Regular rate and rhythm. S1 and S2 heard. ABDOMEN: Soft. Nondistended. Nontender. EXTREMITIES: Normal range of motion. No clubbing or cyanosis. Peripheral pulses intact. No lower extremity edema NEUROLOGIC: Awake and alert. Oriented x 3. ASSESSMENT: Left-sided weakness, dizziness, and decrease vision Paroxysmal atrial fibrillation with previous ablation History of DVT Normal coronary arteries, per cardiac catheterization, 2023 Positive PFO, per DREW in 11/2024 Obstructive sleep apnea Hypertension Chronic venous insufficiency Obesity: BMI 42.4 History of CVA PLAN: No need to obtain echocardiogram as patient underwent DREW in November 2024 Continue e home cardiac medications Patient states that he saw his primary neurologist out of [place] within the last 1 to 2 weeks. He states that his neurologist told him that he needed to have his PFO closed. Will attempt to get records from patient's primary neurology office Case discussed with Dr. Wolfe. Unsure if patients symptoms are related to pa tients PFO. If patient's primary neurologist feels that patient needs to have his PFO closed, Dr. Wolfe will consider closing it. Further recommendations pending patient course Nurse practitioner note has been reviewed by physician. Signing provider agrees with the documented findings, assessment, and plan of care documented by PANEL MACHINE TENDER as a scribe. Objective - Vital Signs Vital signs: Vital Signs Temp 98.0 F 12/05/24 03:50 Pulse 72 12/05/24 03:50 Resp 16 12/05/24 03:50 BP 136/89 12/05/24 03:50 Pulse Ox 97 12/05/24 03:50 FiO2 Intake & Output 12/04/24 12/05/24 12/05/24 18:59 06:59 18:59 Intake Total 560 118 Balance 560 118 Weight 130.7 kg Intake: Oral 560 118 Other: Voiding Method Toilet Toilet # Voids 2 1 - Labs CBC & Chem 7: 12/03/24 15:17 12/03/24 15:17
--- NOTE | 2024-12-05 17:18 | P.PN ---
Subjective Progress Note Date: 12/05/24 I am seeing the patient for the first time during this hospital visit. Please refer to Dr. Persaud's note for further details. According the patient he has a history of stroke, he has methylenetetrahydrofolate reductase deficiency and states that he has a history of A-fib and he is on Eliquis. States he presented to the hospital because of worsening dysarthria. He states he has underlying history of left-sided weakness and dysarthria from his previous stroke but he feels his dysarthria got worse. Upon reviewing Dr. Persaud's note it seems that presents because of left-sided symptoms. Seems that he complained of headache left-sided weakness speech was slurred. I spoke with primary team nurse dora chung and she stated that patient was stuttering and was not consistent and it seems more functional. It seems that he had a DREW in November 2024 was found to have PFO. Also per Dr. Persaud's notes he has seen the patient in the past and he had recurrent episode of neurological symptoms of dizziness lightheadedness left blurred vision related to the left he had MRI in the past which was normal. Seems that he had a repeat MRI this time around which was normal. 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 Per the primary care nurse practitioner and she states that the patient's asking for pain medication. Objective - Vital Signs Vital signs: Vital Signs Temp 98.3 F 12/05/24 11:10 Pulse 65 12/05/24 14:11 Resp 16 12/05/24 14:11 BP 142/87 12/05/24 11:10 Pulse Ox 98 12/05/24 11:10 FiO2 Intake & Output 12/04/24 12/05/24 12/05/24 18:59 06:59 18:59 Intake Total 560 340 Balance 560 340 Weight 130.7 kg Intake: Oral 560 340 Other: Voiding Method Toilet Toilet # Voids 2 1 - Exam General: Lying in bed and is not in acute distress. Neuro: The patient is awake alert oriented to self place and time. Is following simple commands. No aphasia Visual carlisle are full confrontation. Extraocular moods intact no nystagmus. No facial weakness. No dysarthria. Patient feels he has dysarthria but on my examination he is not having any dysarthria Motor the strength is hard to assess individual muscle strength since the patient is not putting good effort on examination but is able to lift up all extremity above gravity and I stated earlier he is not placing good effort on multiple attempts - Labs CBC & Chem 7: 12/03/24 15:17 12/03/24 15:17 Assessment and Plan Assessment: This is a 44-year-old gentleman who presents to the emergency department because of left-sided weakness, headache, slurred speech, could not see out of the left side and had numbness tingling over the left side. Seems that he has recurrent symptoms with different neurological issues. Patient had multiple MRIs in the past as well as a current MRI and all the MRIs are negative for any acute process. I did not see any old lesions on the FLAIR to suggest an old stroke. Recent reported left-sided weakness, dysarthria, vision issue out of the left eye and paresthesia over the left side multiple prior recurrent neurological issues. I think this is more functional. Patient had a recent MRI during this hospital visit and is unremarkable for any acute or subacute process. 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 Per Dr. Persaud patient has a PFO and may benefit from PFO closure. I spoke with primary team nurse practitioner and seems that the patient is scheduled for PFO closure tomorrow I recommend the patient to follow-up with a neurologist as an outpatient within 2 to 3 weeks. As well as psychiatrist as an outpatient since I feel this is more functional. Consider psychiatry consultation during this hospital visit since it seems sanjay ent is having recurrent hospital visit for the same presentation and unsure if he will follow-up with psychiatry as an outpatient. Cardiology is on board. Will defer the rest of the medical management to primary and other specialist Plan discussed with the patient and the primary team nurse practitioner Time with Patient: Less than 30
[2024-12-06] MEDS: MELATONIN 5 MG TABLET PO STA (00:33)
[2024-12-06 11:03] VITALS: BP 137/86; PULSE 70; RESP 16; TEMP 98.1
[2024-12-06] MEDS: KETOROLAC 15 MG/ML 1 ML VIAL IVP STA (11:37)
--- NOTE | 2024-12-06 11:37 | P.PN ---
Progress Note - Text Please see full dictation with nurse practitioner I discussed the patient's case with Dr. Wolfe. I reviewed his records Recurrent symptoms: 4 episodes of paresthesias numbness and tingling in the left lower extremity left upper extremity and sometimes a speech disturbance. These episodes are prolonged and can last for a few days. He is still having some minor symptoms at this time Despite 4 prolonged episodes over the last several months and stated diagnosis of possible stroke, all his brain MRIs are normal in the sense that there is no evidence for an acute infarct or an old infarct. In addition the lesion/territory of involvement is always identical: Left lower extremity, left upper extremity and a little bit in the face, identical each time. He is experiencing symptoms despite aspirin and Eliquis and statins He has a history of recurrent DVT and history of clotting disorder and hence is on Eliquis His CT angio does not show any occlusive carotid or cranial disease. No evidence for intracranial aneurysm or high-grade stenosis. Patient is nondiabetic Morbid obesity positive Apparently has a PFO with [id number] shunt The patient came in wanting a PFO closure. He is seen a neurologist as an outpatient as well as inpatient neurology. Their notes state ",ay benefit from PFO closure" I discussed this with Dr. Wolfe and both he and I are not convinced that he has recurrent paradoxical embolism on aspirin and Eliquis in the exact same territory for prolonged periods of time without any evidence of infarction on multiple serial MRIs I explained this to the patient very clearly. He still desires PFO closure I explained the long-term disadvantages of PFO closure including difficulty in accessing the left atrium for an A-fib ablation which she may need in the future once again, any future mitral valve percutaneous mitral repair in the future, and pacemakers such as biventricular pacemakers in place the coronary sinus gets occluded. High septal pacing would also be difficult. In addition there is a long-term risk of stroke despite closure devices. Access to the left atrium, transmitral access to the left ventricle and access to the upper septum and sometimes even the coronary sinus could be challenging following PFO closure. The patient still desires PFO closure I made it very clear that Dr. Wolfe and I would not be recommending a closure but we would recommend that he see the neurology service at [facility] and get an opinion on whether this truly represents recurrent embolic stroke or not from them prior to proceeding with PFO closure at [facility] I would also recommend switching to Plavix and stopping aspirin Continue Eliquis Continuing statins and consideration for oral nicardipine in place of metoprolol
--- NOTE | 2024-12-06 11:48 | P.DS ---
Providers Date of admission: 12/03/24 17:30 Expected date of discharge: 12/06/24 Attending physician: Sintia Landaverde MD Consults: 12/03/24 17:30 Consult Physician Routine Consulting Provider: Josh Persaud Consult Reason/Comments: cva,tia Do you want consulting provider notified?: Yes Consult Physician Routine Consulting Provider: Bárbara Tompkins Consult Reason/Comments: known Do you want consulting provider notified?: Yes Primary care physician: Aden Diaz MD Hospital Course: Discharge Diagnosis: Headache, blurred vision of left eye, difficulties with reported stuttering and left sided weakness/numbness/tingling. CVA ruled out. MRI negative for any signs of acute/subacute stroke or any signs of previous old stroke. History of TIAs Recently diagnosed PFO Paroxysmal atrial fibrillation status postcardiac ablation Hypertension Hyperlipidemia MTHFR gene mutation Chronic left lower extremity edema History of DVT GERD Hospital course: Patient is a 44-year-old male with a past medical history of atrial fibrillation status post cardiac ablation on anticoagulation with Eliquis, TIAs, recently diagnosed PFO, hypertension, hyperlipidemia, GERD, MTHFR gene mutation, chronic swelling left lower extremity, and gastric bypass. He presented to the emergency department on 12/03/2024 with a chief complaint of left upper and lower extremity numbness, weakness, and tingling accompanied by reports of difficulties with speech/stuttering and blurred vision of left eye. This is 3rd admit to our facility this month along with one additional known admission to [facility] for similar complaints. Upon arrival to our facility, patient underwent evaluation in the emergency department. Vital signs upon arrival show blood pressure 124/87, heart rate 72, respiratory rate 18, temp 98.0 F, and SpO2 of 97% on room air. EKG completed showing normal sinus rhythm at 70 bpm with no noted T wave or ST abnormality showing no signs of acute ischemia upon personal review and interpretation. Blood glucose 99. CT head negative for acute intracranial process. CTA head no evidence of acute process. CTA neck negative showing no evidence of dissection or significant stenosis. Dopplers bilateral lower extremity negative for DVT. Labs completed and reviewed. CBC unremarkable. Coagulation profile normal findings. BMP normal findings. Blood glucose 107. Magnesium 2.0. Liver profile normal findings. Creatinine kinase low at 48. Troponin was negative at less than 0.012. Patient was admitted under services with consultation to cardiology and neurology. MRI brain without contrast was completed and showing no evidence of intracranial mass or acute/subacute infarct with no new flair signal abnormalities reported. Neurology evaluated stating upon assessment of patient and review of current MRI as well as previous MRIs reporting they are negative for any acute process or evidence of old lesions on the FLAIR to suggest even a previous stroke. Neurology reporting that it is felt that patient's symptoms are more functional and may benefit from an outpatient follow-up with a psychologist. Cardiology evaluated patient and stated despite four prolonged episodes of reported of left upper and lower extremity numbness and weakness accompanied by speech disturbances, all MRIs are normal in the sense that there are no evidence for acute infarct or an old infarct, cardiology stating they are not recommending a closure and recommend patient follow-up with neurology at [facility] to get a second opinion on whether this truly represents recurrent embolic strokes. Cardiology recommending stopping aspirin and placing patient on Plavix 75 mg daily, continuation of Eliquis 5 mg twice daily, continuing atorvastatin 80 mg nightly, and discontinuing metoprolol and starting patient on nicardipine HCl 20 mg 3 times daily. Patient cleared from both cardiology and neurology perspective and is medically optimized for discharge at this time. Physical exam: Vital signs reviewed and stable. General: Nontoxic, no distress and appears stated age. Derm: Skin warm and dry, normal coloration for ethnicity. Head: Atraumatic, normocephalic and symmetric. Eyes: EOM's intact, no lid lag, and anicteric sclera Mouth: no lip lesions, mucus membranes moist Cardiovascular: regular rate and rhythm with normal S1S2, no murmur, positive posterior tibial pulses bilaterally, and cap refill < 2 seconds. Lungs: Respirations even, regular, and unlabored on room air. Lungs CTA bilaterally, no rhonchi, no rales, no wheezing, and no accessory muscle usage. Abdominal: soft, nontender to palpation, no guarding, no appreciable organomegaly Ext: ROM intact. No gross muscle atrophy, no edema, no contractures Neuro: Speech clear, face symmetrical and CN II-XII grossly intact with no noted focal neuro deficits Psych: Alert and oriented to person, place, time, and situation. Appropriate and pleasant affect. A total of 35 minutes of time were spent preparing this complex discharge summary. Pt was discharged on 12/06/24 at 11:35 AM. Patient was seen independently by Nurse Practitioner. This document was prepared using BRIKA dictation software. Please allow for errors in neonatal nurse practitioner while rare they do occur. Jacob Ying NP rendered care for this patient independently, reviewed the findings and plan as documented in the note above. I did not physically speak with or examine the patient on this date. Patient Condition at Discharge: Stable Plan - Discharge Summary Discharge Rx Participant: Yes New Discharge Prescriptions: New Clopidogrel [Plavix] 75 mg PO DAILY 30 Days #30 tablet niCARdipine HCL 20 mg PO TID 30 Days #90 cap Continue Cyclobenzaprine HCl 10 mg PO TID PRN PRN Reason: Pain Valsartan 320 mg PO DAILY Ferrous Sulfate [Iron (65 MG Elemental)] 325 mg PO BID EPINEPHrine (Auto Inject) [Epipen] 0.3 mg IM ONCE PRN PRN Reason: Anaphylaxis Apixaban [Eliquis] 5 mg PO BID Docusate [Colace] 100 mg PO BID #60 capsule oxyCODONE-APAP 10-325MG [Percocet 10-325 mg] 1 tab PO Q4-6H PRN PRN Reason: Pain Tamsulosin HCl [Flomax] 0.4 mg PO DAILY Gabapentin 600 mg PO TID Atorvastatin [Lipitor] 80 mg PO HS Lidocaine 4% Patch 1 patch TOPICAL DAILY #14 patch clonazePAM [KlonoPIN] 2 mg PO BID@1200,2100 Omeprazole 40 mg PO DAILY clonazePAM [KlonoPIN] 1 mg PO DAILY Acetaminophen Tab [Tylenol] 1,000 mg PO Q6HR PRN #30 tablet PRN Reason: Pain Loratadine 10 mg PO DAILY Lactulose [Constulose] 30 gm PO BID Folic Acid 1 mg PO DAILY #60 tablet Cyanocobalamin (Vitamin B-12) [Vitamin B-12] 1,000 mcg PO DAILY #30 tablet Discontinued Aspirin 81 mg PO DAILY 30 Days #30 tab Metoprolol Tartrate [Lopressor] 25 mg PO BID Discharge Medication List Omeprazole 40 mg PO DAILY 07/10/23 [History] Cyclobenzaprine HCl 10 mg PO TID PRN 11/18/23 [History] Valsartan 320 mg PO DAILY 11/18/23 [History] Ferrous Sulfate [Iron (65 MG Elemental)] 325 mg PO BID 11/30/23 [History] EPINEPHrine (Auto Inject) [Epipen] 0.3 mg IM ONCE PRN 01/16/24 [History] clonazePAM [KlonoPIN] 1 mg PO DAILY 01/16/24 [History] Acetaminophen Tab [Tylenol] 1,000 mg PO Q6HR PRN #30 tablet 06/03/24 [Rx] Apixaban [Eliquis] 5 mg PO BID 06/03/24 [History] Lactulose [Constulose] 30 gm PO BID 06/08/24 [History] Loratadine 10 mg PO DAILY 06/08/24 [History] Docusate [Colace] 100 mg PO BID #60 capsule 07/27/24 [Rx] Atorvastatin [Lipitor] 80 mg PO HS 11/17/24 [History] Gabapentin 600 mg PO TID 11/17/24 [History] Tamsulosin HCl [Flomax] 0.4 mg PO DAILY 11/17/24 [History] oxyCODONE-APAP 10-325MG [Percocet 10-325 mg] 1 tab PO Q4-6H PRN 11/17/24 [History] Cyanocobalamin (Vitamin B-12) [Vitamin B-12] 1,000 mcg PO DAILY #30 tablet 11/19/24 [Rx] Folic Acid 1 mg PO DAILY #60 tablet 11/19/24 [Rx] Lidocaine 4% Patch 1 patch TOPICAL DAILY #14 patch 11/21/24 [Rx] clonazePAM [KlonoPIN] 2 mg PO BID@1200,2100 12/03/24 [History] Clopidogrel [Plavix] 75 mg PO DAILY 30 Days #30 tablet 12/06/24 [Rx] niCARdipine HCL 20 mg PO TID 30 Days #90 cap 12/06/24 [Rx] Follow up Appointment(s)/Referral(s): Fadi Wolfe DO [STAFF PHYSICIAN] - 1 Week (Please call to schedule hospital follow up. ) Aden Diaz MD [Primary Care Provider] - 1-2 days (Please call to schedule hospital follow up. ) Patient Instructions/Handouts: Migraine Headache (GEN) Activity/Diet/Wound Care/Special Instructions: Activity: As tolerated. Take breaks as needed. Diet: Heart healthy and carb consistent diet. Avoid salts, or foods with hidden salts such as canned or boxed foods and frozen dinners. Extra salt makes your heart work harder and traps the fluid in your body for longer. Special Instructions: Take all of your medications as directed and remember to keep all of your doctor's appointments and follow-up as needed. Recommend following up with your primary neurologist in 1 to 2 weeks. MRI and previous MRIs reviewed by neurologist stating no signs of acute or any signs of previous stroke. Recommending outpatient follow-up with both your neurologist and that you may benefit from following up with psychiatrist. Thank you for allowing us to participate in your care, it was truly a pleasure having you for our patient!!! . Discharge Disposition: HOME SELF-CARE
== END 2024-12-06 13:42 | disposition home or self-care (01) | DRG 861 ==
LOC: EC 14:46 → 3SCARD 17:30 → OBSVTOIN 17:30 → 3SCARD 17:53
PROVIDERS: ADMIT Internal Medicine; ATTEND Internal Medicine
DX: R53.1 Weakness (principal); Q21.12 Patent foramen ovale; I48.0 Paroxysmal atrial fibrillation; I10 Essential (primary) hypertension; E78.5 Hyperlipidemia, unspecified; E72.12 Methylenetetrahydrofolate reductase deficiency; R60.0 Localized edema; K21.9 Gastro-esophageal reflux disease without esophagitis; R47.1 Dysarthria and anarthria; I87.2 Venous insufficiency (chronic) (peripheral); E66.01 Morbid (severe) obesity due to excess calories; E53.8 Deficiency of other specified B group vitamins; G43.909 Migraine, unspecified, not intractable, without status migrainosus; R20.2 Paresthesia of skin; R73.9 Hyperglycemia, unspecified; M54.50 Low back pain, unspecified; G89.29 Other chronic pain; K59.09 Other constipation; N40.0 Benign prostatic hyperplasia without lower urinary tract symptoms; D50.9 Iron deficiency anemia, unspecified; G47.33 Obstructive sleep apnea (adult) (pediatric); Z86.718 Personal history of other venous thrombosis and embolism; Z98.84 Bariatric surgery status; Z79.01 Long term (current) use of anticoagulants; Z86.73 Personal history of transient ischemic attack (TIA), and cerebral infarction without residual deficits; Z68.41 Body mass index [BMI] 40.0-44.9, adult; Z79.82 Long term (current) use of aspirin
CPT/HCPCS: 36415; 70450; 70496; 70498; 70551; 71046; 80053; 82550; 83735; 84100; 84484; 85025; 85610; 85730; 93005; 93970; 96361; 96374; 96375; 99285

== ENCOUNTER 2025-01-03 19:02 | Emergency (ER) | payer OTHER ==
[2025-01-03 19:09] VITALS: TEMP 97.4
[2025-01-03] MEDS: HYDROmorphone 0.5 MG/0.5 ML SYRINGE IVP STA (21:50)
[2025-01-03 21:56] LABS: Basophils % (A) 0 %; Eosinophils # (A) 0.3 k/uL (0-0.7); Eosinophils % (A) 5 %; HCT 44.6 % (39.0-53.0); HGB 13.6 gm/dL (13.0-17.5); Hypochromasia Moderate; Lymphocytes # (A) 1.9 k/uL (1.0-4.8); Lymphocytes % (A) 29 %; MCH 26.1 pg (25.0-35.0); MCHC 30.4 g/dL (31.0-37.0); MCV 85.7 fL (80.0-100.0); Mean Platelet Volume 6.5; Monocytes # (A) 0.3 k/uL (0-1.0); Monocytes % (A) 5 %; Neutrophils # (A) 3.9 k/uL (1.3-7.7); Neutrophils % (A) 60 %; Platelet Count 234 k/uL (150-450); RDW 13.9 % (11.5-15.5); WBC 6.5 k/uL (3.8-10.6)
--- NOTE | 2025-01-03 21:58 | ED ---
General Adult HPI - General Chief complaint: Syncope Stated complaint: syncope, SOB Time Seen by Provider: 01/03/25 21:13 Source: patient Mode of arrival: ambulatory Limitations: no limitations - History of Present Illness Initial comments: This patient is a 44-year-old man who presents to have evaluation after he had an episode at home in which he passed out. The patient states that he had gone to the bathroom because he was not feeling well, he was having nausea. In the bathroom he vomited. Shortly after that he states that he passed out and woke up lying on the bathroom floor with the vomit. He denies feeling as if there was any injury in the fall. The patient does have some pain but he states its chronic pain he has low back pain that is usual for him. Patient denies headache, chest pain, abdominal pain or any extremity pain. Onset/Timin -: hour(s) Location: back Quality: aching Consistency: constant Improves with: none Worsens with: none Associated Symptoms: nausea/vomiting, syncope Treatments Prior to Arrival: none - Related Data Home Medications Medication Instructions Recorded Confirmed Omeprazole 40 mg PO DAILY 07/10/23 12/03/24 Cyclobenzaprine HCl 10 mg PO TID PRN 11/18/23 12/03/24 Valsartan 320 mg PO DAILY 11/18/23 12/03/24 Ferrous Sulfate [Iron (65 MG 325 mg PO BID 11/30/23 12/03/24 Elemental)] EPINEPHrine (Auto Inject) [Epipen] 0.3 mg IM ONCE PRN 01/16/24 12/03/24 clonazePAM [KlonoPIN] 1 mg PO DAILY 01/16/24 12/03/24 Apixaban [Eliquis] 5 mg PO BID 06/03/24 12/03/24 Lactulose [Constulose] 30 gm PO BID 06/08/24 12/03/24 Loratadine 10 mg PO DAILY 06/08/24 12/03/24 Atorvastatin [Lipitor] 80 mg PO HS 11/17/24 12/03/24 Gabapentin 600 mg PO TID 11/17/24 12/03/24 Tamsulosin HCl [Flomax] 0.4 mg PO DAILY 11/17/24 12/03/24 oxyCODONE-APAP 10-325MG [Percocet 1 tab PO Q4-6H PRN 11/17/24 12/03/24 10-325 mg] clonazePAM [KlonoPIN] 2 mg PO BID@1200,2100 12/03/24 12/03/24 Previous Rx's Medication Instructions Recorded Acetaminophen Tab [Tylenol] 1,000 mg PO Q6HR PRN #30 tablet 06/03/24 Docusate [Colace] 100 mg PO BID #60 capsule 07/27/24 Cyanocobalamin (Vitamin B-12) 1,000 mcg PO DAILY #30 tablet 11/19/24 [Vitamin B-12] Folic Acid 1 mg PO DAILY #60 tablet 11/19/24 Lidocaine 4% Patch 1 patch TOPICAL DAILY #14 patch 11/21/24 Clopidogrel [Plavix] 75 mg PO DAILY 30 Days #30 tablet 12/06/24 niCARdipine HCL 20 mg PO TID 30 Days #90 cap 12/06/24 Allergies Allergy/AdvReac Type Severity Reaction Status Date / Time No Known Allergies Allergy Verified 01/03/25 19:09 Review of Systems ROS Statement: Those systems with pertinent positive or pertinent negative responses have been documented in the HPI. ROS Other: All systems not noted in ROS Statement are negative. Constitutional: Denies: fever, chills, weakness Eyes: Denies: vision change ENT: Denies: congestion Respiratory: Denies: cough, dyspnea Cardiovascular: Reports: syncope. Denies: chest pain, palpitations, orthopnea, edema Gastrointestinal: Denies: abdominal pain, nausea, vomiting Genitourinary: Denies: dysuria, hematuria Musculoskeletal: Denies: back pain Skin: Denies: rash Neurological: Denies: headache, weakness Past Medical History Past Medical History: Atrial Fibrillation, Blood Disorder, Deep Vein Thrombosis (DVT), GERD/Reflux, Hearing Disorder / Deafness, Hypertension, Myocardial Infarction (GA), Osteoarthritis (OA), Sleep Apnea/CPAP/BIPAP Additional Past Medical History / Comment(s): DVT X 3- LAST TIME 2012- LT LEG, LUMBAR DDD- . HAS HX MTHFR GENE MUTATION-POSITIVE FOR HETEROZYGOUS PER DR. FRANCISCO'S OFFICE, doesn't not use CPAP, occasional swelling left lower leg Last Myocardial Infarction Date:: 09/2021 History of Any Multi-Drug Resistant Organisms: None Reported Past Surgical History: Bariatric Surgery, Cardiac Ablation, Cholecystectomy, Heart Catheterization, Joint Replacement Additional Past Surgical History / Comment(s): LEFT KNEE REPLACEMENT, LT INDEX JOINT REPLACEMENT, PAIN CLINIC PROCEDURES, COLONOSCOPY, EGD. Gastric bypass 07-06-23 Past Anesthesia/Blood Transfusion Reactions: Previous Problems w/ Anesthesia, Family History of Problems w/ Anesthesia, Motion Sickness Additional Past Anesthesia/Blood Transfusion Reaction / Comment(s): HARD TO PUT TO SLEEP-(pt and father)-needs more than normal. no hx blood transfusion Past Psychological History: Depression Smoking Status: Never smoker Past Alcohol Use History: Rare Past Drug Use History: None Reported - Past Family History Sister(s) Family Medical History: Cancer Additional Family Medical History / Comment(s): Skin cancer. Mother History Unknown: Yes General Exam Limitations: no limitations General appearance: alert, in no apparent distress Head exam: Present: atraumatic, normocephalic Eye exam: Present: normal appearance. Absent: scleral icterus, conjunctival injection ENT exam: Present: normal oropharynx Neck exam: Present: normal inspection Respiratory exam: Present: normal lung sounds bilaterally. Absent: respiratory distress, wheezes, rales, rhonchi, stridor, accessory muscle use Cardiovascular Exam: Present: regular rate, normal rhythm, normal heart sounds. Absent: systolic murmur, diastolic murmur, rubs, gallop GI/Abdominal exam: Present: soft. Absent: distended, tenderness, guarding, rebound, rigid, mass Extremities exam: Present: normal inspection, normal capillary refill. Absent: pedal edema, calf tenderness Back exam: Present: normal inspection. Absent: CVA tenderness (R), CVA tenderness (L), vertebral tenderness Neurological exam: Present: alert, oriented X3, CN II-XII intact. Absent: motor sensory deficit Skin exam: Present: warm, dry, intact, normal color. Absent: rash Course Vital Signs 01/03/25 01/03/25 19:07 23:35 Temperature 97.4 F L Pulse Rate 91 80 Respiratory 20 18 Rate Blood Pressure 128/84 131/75 O2 Sat by Pulse 99 98 Oximetry EKG Findings - EKG Results: EKG: interpreted by FAIZA, sinus rhythm (76 bpm), normal axis, normal ST/T (Will be interested to see what they serve) - Blocks, Spencer, Hypertrophy, ST Abn: QRS axis and voltage: low voltage (<0.5 MV total QRS and <1.0 MV in each precordial lead) Medical Decision Making - Medical Decision Making Patient had chest x-ray that I interpreted as negative for acute infiltrate, pneumothorax, congestive heart failure. Was pt. sent in by a medical professional or institution ([facility], [facility], urgent care, hospital, or retirement...) When possible be specific @ -[No] Did you speak to anyone other than the patient for history (EMS, parent, family, police, friend...)? What history was obtained from this source @ -[No] Did you review nursing and triage notes (agree or disagree)? Why? @ -[I reviewed and agree with nursing and triage notes] Were old charts reviewed (outside hosp., previous admission, EMS record, old EKG, old radiological studies, urgent care reports/EKG's, retirement records)? Report findings @ -[No old charts were reviewed] Differential Diagnosis (chest pain, altered mental status, abdominal pain women, abdominal pain men, vaginal bleeding, weakness, fever, dyspnea, syncope, headache, dizziness, GI bleed, back pain, seizure, CVA, palpatations, mental health, musculoskeletal)? @ -[Differential Syncope: Valvular disease, hypertrophic cardiomyopathy, pulmonary embolism, tamponade, tachycardia, bradycardia, GA, hypovolemia, hemorrhage, dissection, anemia, intracranial hemorrhage, seizure, hypoglycemia, carbon monoxide poisoning, this is not meant to be an all-inclusive list. EKG interpreted by me (3pts min.). @ -[I interpreted as above] X-rays interpreted by me (1pt min.). @ -[I interpreted as above CT interpreted by me (1pt min.). @ -[None done] U/S interpreted by me (1pt. min.). @ -[None done] What testing was considered but not performed or refused? (CT, X-rays, U/S, labs)? Why? @ -[None] What meds were considered but not given or refused? Why? @ -[None] Did you discuss the management of the patient with other professionals (professionals i.e. [facility], [facility], lab, RT, psych nurse, social science analyst, blow molding machine tender, teacher, service officer, transplant case manager)? Give summary @ -[No] Was smoking cessation discussed for >3mins.? @ -[No] Was critical care preformed (if so, how long)? @ -[No] Were there social determinants of health that impacted care today? How? (Homelessness, low income, unemployed, alcoholism, drug addiction, transportation, low edu. Level, literacy, decrease access to med. care, residential, rehab)? @ -[No] Was there de-escalation of care discussed even if they declined (Discuss DNR or withdrawal of care, Hospice)? DNR status @ -[No] What co-morbidities impacted this encounter? (DM, HTN, Smoking, COPD, CAD, Cancer, CVA, ARF, Chemo, Hep., AIDS, mental health diagnosis, sleep apnea, morbid obesity)? @ -[None] Was patient admitted / discharged? Hospital course, mention meds given and route, prescriptions, significant lab abnormalities, going to OR and other pertinent info. @ -[Patient is 44-year-old man here for evaluation after syncopal episode. The history and physical do not have any red flags related to syncope. The patient is reevaluated after the studies returned, he is feeling better and at this point would like to go home. We discussed appropriate further care and follow- up as well as return parameters. Undiagnosed new problem with uncertain prognosis? @ -[No] Drug Therapy requiring intensive monitoring for toxicity (Heparin, Nitro, Insulin, Cardizem)? @ -[No] Were any procedures done? @ -[No] Diagnosis/symptom? @ -[Acute syncopal episode Nausea and vomiting, resolved Acute, or Chronic, or Acute on Chronic? @ -[Acute Uncomplicated (without systemic symptoms) or Complicated (systemic symptoms)? @ -[Uncomplicated Side effects of treatment? @ -[No] Exacerbation, Progression, or Severe Exacerbation? @ -[No] Poses a threat to life or bodily function? How? (Chest pain, USA, GA, pneumonia, PE, COPD, DKA, ARF, appy, cholecystitis, CVA, Diverticulitis, Homicidal, Suicidal, threat to staff... and all critical care pts) @ -[No] All treatments are based on ideal body weight as in ED triage - Lab Data Result diagrams: 01/03/25 21:40 01/03/25 21:40 Lab Results 01/03/25 01/03/25 01/03/25 Range/Units 21:40 21:40 21:40 WBC 6.5 (3.8-10.6) k/uL RBC 5.20 (4.30-5.90) m/uL Hgb 13.6 (13.0-17.5) gm/dL Hct 44.6 (39.0-53.0) % MCV 85.7 (80.0-100.0) fL MCH 26.1 (25.0-35.0) pg MCHC 30.4 L (31.0-37.0) g/dL RDW 13.9 (11.5-15.5) % Plt Count 234 (150-450) k/uL MPV 6.5 Neutrophils % 60 % Lymphocytes % 29 % Monocytes % 5 % Eosinophils % 5 % Basophils % 0 % Neutrophils # 3.9 (1.3-7.7) k/uL Lymphocytes # 1.9 (1.0-4.8) k/uL Monocytes # 0.3 (0-1.0) k/uL Eosinophils # 0.3 (0-0.7) k/uL Basophils # 0.0 (0-0.2) k/uL Hypochromasia Moderate PT 10.5 (10.0-12.5) sec INR 0.9 (<1.2) APTT 25.6 (22.0-30.0) sec Sodium 139 (137-145) mmol/L Potassium 4.6 (3.5-5.1) mmol/L Chloride 103 (98-107) mmol/L Carbon Dioxide 30 (22-30) mmol/L Anion Gap 6 mmol/L BUN 11 (9-20) mg/dL Creatinine 0.94 (0.66-1.25) mg/dL Est GFR (CKD-EPI)AfAm >90 (>60 ml/min/1.73 sqM) Est GFR (CKD-EPI)NonAf >90 (>60 ml/min/1.73 sqM) Glucose 93 (74-99) mg/dL Calcium 9.2 (8.4-10.2) mg/dL Total Bilirubin 0.5 (0.2-1.3) mg/dL AST 18 (17-59) U/L ALT 12 (4-49) U/L Alkaline Phosphatase 76 (38-126) U/L Troponin I (0.000-0.034) ng/mL Total Protein 6.2 L (6.3-8.2) g/dL Albumin 4.0 (3.5-5.0) g/dL 01/03/25 Range/Units 21:40 WBC (3.8-10.6) k/uL RBC (4.30-5.90) m/uL Hgb (13.0-17.5) gm/dL Hct (39.0-53.0) % MCV (80.0-100.0) fL MCH (25.0-35.0) pg MCHC (31.0-37.0) g/dL RDW (11.5-15.5) % Plt Count (150-450) k/uL MPV Neutrophils % % Lymphocytes % % Monocytes % % Eosinophils % % Basophils % % Neutrophils # (1.3-7.7) k/uL Lymphocytes # (1.0-4.8) k/uL Monocytes # (0-1.0) k/uL Eosinophils # (0-0.7) k/uL Basophils # (0-0.2) k/uL Hypochromasia PT (10.0-12.5) sec INR (<1.2) APTT (22.0-30.0) sec Sodium (137-145) mmol/L Potassium (3.5-5.1) mmol/L Chloride (98-107) mmol/L Carbon Dioxide (22-30) mmol/L Anion Gap mmol/L BUN (9-20) mg/dL Creatinine (0.66-1.25) mg/dL Est GFR (CKD-EPI)AfAm (>60 ml/min/1.73 sqM) Est GFR (CKD-EPI)NonAf (>60 ml/min/1.73 sqM) Glucose (74-99) mg/dL Calcium (8.4-10.2) mg/dL Total Bilirubin (0.2-1.3) mg/dL AST (17-59) U/L ALT (4-49) U/L Alkaline Phosphatase (38-126) U/L Troponin I <0.012 (0.000-0.034) ng/mL Total Protein (6.3-8.2) g/dL Albumin (3.5-5.0) g/dL Disposition Clinical Impression: Syncope Disposition: HOME SELF-CARE Condition: Good Instructions (If sedation given, give patient instructions): Syncope (ED) Is patient prescribed a controlled substance at d/c from ED?: No Referrals: Aden Diaz MD [Primary Care Provider] - 1-2 days
[2025-01-03 22:06] LABS: ALT 12 U/L (4-49); AST 18 U/L (17-59); African American GFR (CKD) >90 (>60 ml/min/1.73 sqM); Alkaline Phosphatase 76 U/L (38-126); Anion Gap 6 mmol/L; Blood Urea Nitrogen 11 mg/dL (9-20); Calcium 9.2 mg/dL (8.4-10.2); Carbon Dioxide 30 mmol/L (22-30); Chloride 103 mmol/L (98-107); Glucose 93 mg/dL (74-99); Non-African American GFR(CKD) >90 (>60 ml/min/1.73 sqM); Potassium 4.6 mmol/L (3.5-5.1); Sodium 139 mmol/L (137-145); Total Bilirubin 0.5 mg/dL (0.2-1.3); Total Protein 6.2 g/dL (6.3-8.2)
[2025-01-03 22:15] LABS: INR 0.9 (<1.2); Partial Thromboplastin Time 25.6 sec (22.0-30.0); Prothrombin Time 10.5 sec (10.0-12.5)
--- NOTE | 2025-01-03 23:16 | XR ---
EXAM: XR Chest, 2 Views CLINICAL HISTORY: ITS.REASON XR Reason: syncope TECHNIQUE: Frontal and lateral views of the chest. COMPARISON: No relevant prior studies available. FINDINGS: Lungs: No consolidation. No overt edema. Pleural space: No pleural effusion. No pneumothorax. Heart: Unremarkable. No cardiomegaly. Bones/joints: Unremarkable. No fracture or malalignment. IMPRESSION: No acute cardiopulmonary abnormality.
[2025-01-03] MEDS: HYDROmorphone 1 MG/ML 1 ML SYRINGE IVP STA (23:25)
[2025-01-03] MEDS: KETOROLAC 15 MG/ML 1 ML VIAL IVP STA (23:27)
[2025-01-03 23:37] VITALS: BP 131/75; PULSE 80; RESP 18
== END 2025-01-03 23:36 | disposition home or self-care (01) ==
LOC: EC 19:02
DX: R55 Syncope and collapse (principal)
CPT/HCPCS: 36415; 93005; 80053; 84484; 85025; 85610; 85730; 71046; 99284; 96374; 96375; 96376; J1171 ×2; J1885

== ENCOUNTER → 2025-01-18 | Outpatient (CLI) | payer OTHER ==
[2025-01-18 14:46] VITALS: BP 152/93; PULSE 91; RESP 16; TEMP 98.1; BMI 37.0
--- NOTE | 2025-01-18 15:19 | P.BASOAP ---
Subjective Progress Note Date: 01/18/25 HE lost weight highest 425 pounds. He had a stroke in SEP 2025. He lost down to 281. No change in medications. He is going to [facility]. Tore rotator cuff and knee replacement needed. Already had knee replacement. Down 11 inches in waist. Lost 140 panniculectomy. Over 1 year. Nystatin 6 months treatment. Nutrition corrected. Lost vision and speech therapy. Needs picture. [facility] Objective - Vital Signs Vital signs: Vital Signs Temp 98.1 F 01/18/25 14:35 Pulse 91 01/18/25 14:35 Resp 16 01/18/25 14:35 BP 152/93 01/18/25 14:35 Pulse Ox FiO2 Intake & Output 01/17/25 01/18/25 01/18/25 18:59 06:59 18:59 Weight 127.459 kg Assessment/Plan Plan: Date: 01/18/25 Initial Weight: Initial BMI: Current Weight: 127.459 kg Current BMI: 37.0 Type of Surgery: Total Volume in Band: Previous Volume: Volume Removed: Volume Added: Band Size:
== END ==
LOC: BARWHC3 14:24
PROVIDERS: ATTEND Surgery Plastic and Reconstructive Surgery
DX: R63.4 Abnormal weight loss (principal); Z68.37 Body mass index [BMI] 37.0-37.9, adult
CPT/HCPCS: 99211

== ENCOUNTER 2025-01-25 11:27 | Emergency (ER) | payer OTHER ==
[2025-01-25 11:45] VITALS: TEMP 97.8
--- NOTE | 2025-01-25 12:07 | ED ---
General Adult HPI - General Chief complaint: Dizziness Stated complaint: syncope, dizziness Time Seen by Provider: 01/25/25 11:52 Source: patient, RN notes reviewed, old records reviewed Mode of arrival: wheelchair Limitations: no limitations - History of Present Illness Initial comments: 44-year-old male presenting for evaluation of syncope, fall. Patient did hit his head and is anticoagulated with history of DVT PE. No preceding chest pain or dyspnea. No significant headache. No focal numbness or weakness. Patient does feel somewhat dizzy and lightheaded. - Related Data Home Medications Medication Instructions Recorded Confirmed Omeprazole 40 mg PO DAILY 07/10/23 01/18/25 Cyclobenzaprine HCl 10 mg PO TID PRN 11/18/23 01/18/25 Valsartan 320 mg PO DAILY 11/18/23 01/18/25 Ferrous Sulfate [Iron (65 MG 325 mg PO BID 11/30/23 01/18/25 Elemental)] EPINEPHrine (Auto Inject) [Epipen] 0.3 mg IM ONCE PRN 01/16/24 01/18/25 clonazePAM [KlonoPIN] 1 mg PO DAILY 01/16/24 01/18/25 Apixaban [Eliquis] 5 mg PO BID 06/03/24 01/18/25 Lactulose [Constulose] 30 gm PO BID PRN 06/08/24 01/18/25 Loratadine 10 mg PO DAILY 06/08/24 01/18/25 Atorvastatin [Lipitor] 80 mg PO HS 11/17/24 01/18/25 Gabapentin 600 mg PO TID 11/17/24 01/18/25 Tamsulosin HCl [Flomax] 0.4 mg PO DAILY 11/17/24 01/18/25 oxyCODONE-APAP 10-325MG [Percocet 1 tab PO Q4-6H PRN 11/17/24 01/18/25 10-325 mg] clonazePAM [KlonoPIN] 2 mg PO BID@1200,2100 12/03/24 01/18/25 Previous Rx's Medication Instructions Recorded Acetaminophen Tab [Tylenol] 1,000 mg PO Q6HR PRN #30 tablet 06/03/24 Docusate [Colace] 100 mg PO BID #60 capsule 07/27/24 Cyanocobalamin (Vitamin B-12) 1,000 mcg PO DAILY #30 tablet 11/19/24 [Vitamin B-12] Folic Acid 1 mg PO DAILY #60 tablet 11/19/24 Clopidogrel [Plavix] 75 mg PO DAILY 30 Days #30 tablet 12/06/24 niCARdipine HCL 20 mg PO TID 30 Days #90 cap 12/06/24 Nystatin 100,000 Unit/gm Powd 1 applic TOPICAL BID #60 gm 01/18/25 [Mycostatin Powder] Allergies Allergy/AdvReac Type Severity Reaction Status Date / Time No Known Allergies Allergy Verified 01/25/25 11:44 Review of Systems ROS Statement: Those systems with pertinent positive or pertinent negative responses have been documented in the HPI. ROS Other: All systems not noted in ROS Statement are negative. Past Medical History Past Medical History: Atrial Fibrillation, Blood Disorder, CVA/TIA, Deep Vein Thrombosis (DVT), GERD/Reflux, Hearing Disorder / Deafness, Hypertension, Myocardial Infarction (OH), Osteoarthritis (OA), Sleep Apnea/CPAP/BIPAP Additional Past Medical History / Comment(s): DVT X 3- LAST TIME 2012- LT LEG, LUMBAR DDD- . HAS HX MTHFR GENE MUTATION-POSITIVE FOR HETEROZYGOUS PER DR. FRANCISCO'S OFFICE, doesn't not use CPAP, occasional swelling left lower leg, Pt states he had a stroke-September of 2024- left eye vision issues, speech slurring-going to speech therapy. PFO being seen by cardiology in [facility]. Last Myocardial Infarction Date:: 09/2021 History of Any Multi-Drug Resistant Organisms: None Reported Past Surgical History: Bariatric Surgery, Cardiac Ablation, Cholecystectomy, Heart Catheterization, Joint Replacement Additional Past Surgical History / Comment(s): LEFT KNEE REPLACEMENT, LT INDEX JOINT REPLACEMENT, PAIN CLINIC PROCEDURES, COLONOSCOPY, EGD. Gastric bypass Past Anesthesia/Blood Transfusion Reactions: Previous Problems w/ Anesthesia, Family History of Problems w/ Anesthesia, Motion Sickness Additional Past Anesthesia/Blood Transfusion Reaction / Comment(s): HARD TO PUT TO SLEEP-(pt and father)-needs more than normal. no hx blood transfusion Past Psychological History: Depression Smoking Status: Never smoker Past Alcohol Use History: Rare Past Drug Use History: None Reported - Past Family History Sister(s) Family Medical History: Cancer Additional Family Medical History / Comment(s): Skin cancer. Mother History Unknown: Yes General Exam Limitations: no limitations General appearance: alert, in no apparent distress Head exam: Present: atraumatic, normocephalic Eye exam: Present: normal appearance, PERRL Neck exam: Present: normal inspection. Absent: tenderness, meningismus Respiratory exam: Present: normal lung sounds bilaterally. Absent: respiratory distress, wheezes Cardiovascular Exam: Present: regular rate, normal rhythm GI/Abdominal exam: Present: soft. Absent: distended, tenderness Extremities exam: Present: normal inspection, normal capillary refill. Absent: calf tenderness Neurological exam: Present: alert, oriented X3, CN II-XII intact. Absent: motor sensory deficit Course Vital Signs 01/25/25 01/25/25 11:40 12:38 Temperature 97.8 F Pulse Rate 107 H 76 Respiratory 16 16 Rate Blood Pressure 91/61 110/62 O2 Sat by Pulse 97 97 Oximetry Medical Decision Making - Medical Decision Making Was pt. sent in by a medical professional or institution ([facility], [employer], urgent care, hospital, or [place] [facility] facility...) When possible be specific @ -No Did you speak to anyone other than the patient for history (EMS, parent, family, police, friend...)? What history was obtained from this source @ -No Did you review nursing and triage notes (agree or disagree)? Why? @ -I reviewed and agree with nursing and triage notes Were old charts reviewed (outside hosp., previous admission, EMS record, old EKG, old radiological studies, urgent care reports/EKG's, [place] health care facility records)? Report findings @ -No old charts were reviewed Differential Syncope: Valvular disease, hypertrophic cardiomyopathy, pulmonary embolism, tamponade, tachycardia, bradycardia, [place], hypovolemia, hemorrhage, dissection, anemia, intracranial hemorrhage, seizure, hypoglycemia, carbon monoxide poisoning, this is not meant to be an all-inclusive list. EKG interpreted by me (3pts min.). @ -Sinus rhythm rate of 87, MS interval 146, QRS duration 103, QTc [address] segment elevation. X-rays interpreted by me (1pt min.). @Chest x-ray negative for acute cardiopulmonary disease CT interpreted by me (1pt min.). @CT of the brain negative for intracranial hemorrhage or mass effect U/S interpreted by me (1pt. min.). @ -None done What testing was considered but not performed or refused? (CT, X-rays, U/S, labs)? Why? @ -None What meds were considered but not given or refused? Why? @ -None Did you discuss the management of the patient with other professionals (professionals i.e. , PA, [employer], lab, RT, psych nurse, certified social workers in health care, poultry tender, teacher, traffic maintenance officer, case management assistant)? Give summary @ -No Was smoking cessation discussed for >3mins.? @ -No Was critical care preformed (if so, how long)? @ -No Were there social determinants of health that impacted care today? How? (Homelessness, low income, unemployed, alcoholism, drug addiction, transportation, low edu. Level, literacy, decrease access to med. care, long term, rehab)? @ -No Was there de-escalation of care discussed even if they declined (Discuss DNR or withdrawal of care, Hospice)? DNR status @ -No What co-morbidities impacted this encounter? (DM, HTN, Smoking, COPD, CAD, Cancer, CVA, ARF, Chemo, Hep., AIDS, mental health diagnosis, sleep apnea, morbid obesity)? @ -Hypertension, DVT PE Was patient admitted / discharged? Hospital course, mention meds given and route, prescriptions, significant lab abnormalities, going to OR and other pertinent info. @ -44-year-old male with syncopal episode, head injury, patient is on anticoa gulation therefore head CT was obtained which is negative for hemorrhage, no acute findings. Workup for syncopal episode is unremarkable including EKG, CBC, CMP, negative troponin. Chest x-ray normal. Patient is given a liter of fluid with improvement in blood pressure. I do suspect he may need adjustment in his antihypertensive medications as he has not had taken these medications prior to the episode. He will monitor blood pressure closely, maintain hydration and follow-up with his primary care provider. Undiagnosed new problem with uncertain prognosis? @ -No Drug Therapy requiring intensive monitoring for toxicity (Heparin, Nitro, Insulin, Cardizem)? @ -No Were any procedures done? @ -No Diagnosis/symptom? @ -Syncope Acute, or Chronic, or Acute on Chronic? @ -[Acute Uncomplicated (without systemic symptoms) or Complicated (systemic symptoms)? @ -Default Side effects of treatment? @ -No Exacerbation, Progression, or Severe Exacerbation? @ -No Poses a threat to life or bodily function? How? (Chest pain, [place], [place], pneumonia, PE, COPD, DKA, ARF, appy, cholecystitis, CVA, Diverticulitis, Homicidal, Suicidal, threat to staff... and all critical care pts) @Low risk at this time - Lab Data Result diagrams: 01/25/25 12:35 01/25/25 12:35 Lab Results 01/25/25 01/25/25 01/25/25 Range/Units 12:35 12:35 12:35 WBC 6.0 (3.8-10.6) k/uL RBC 5.31 (4.30-5.90) m/uL Hgb 14.2 (13.0-17.5) gm/dL Hct 44.5 (39.0-53.0) % MCV 83.6 (80.0-100.0) fL MCH 26.7 (25.0-35.0) pg MCHC 32.0 (31.0-37.0) g/dL RDW 14.0 (11.5-15.5) % Plt Count 249 (150-450) k/uL MPV 6.7 Neutrophils % 65 % Lymphocytes % 24 % Monocytes % 5 % Eosinophils % 4 % Basophils % 0 % Neutrophils # 3.9 (1.3-7.7) k/uL Lymphocytes # 1.5 (1.0-4.8) k/uL Monocytes # 0.3 (0-1.0) k/uL Eosinophils # 0.3 (0-0.7) k/uL Basophils # 0.0 (0-0.2) k/uL Hypochromasia Slight PT 10.9 (10.0-12.5) sec INR 1.0 (<1.2) APTT 26.4 (22.0-30.0) sec Sodium 137 (137-145) mmol/L Potassium 4.1 (3.5-5.1) mmol/L Chloride 99 (98-107) mmol/L Carbon Dioxide 30 (22-30) mmol/L Anion Gap 8 mmol/L BUN 16 (9-20) mg/dL Creatinine 0.89 (0.66-1.25) mg/dL Est GFR (CKD-EPI)AfAm >90 (>60 ml/min/1.73 sqM) Est GFR (CKD-EPI)NonAf >90 (>60 ml/min/1.73 sqM) Glucose 102 H (74-99) mg/dL Plasma Lactic Acid Jordan (0.7-2.0) mmol/L Calcium 9.2 (8.4-10.2) mg/dL Magnesium 1.9 (1.6-2.3) mg/dL Total Bilirubin 0.6 (0.2-1.3) mg/dL AST 15 L (17-59) U/L ALT 9 (4-49) U/L Alkaline Phosphatase 72 (38-126) U/L Troponin I (0.000-0.034) ng/mL Total Protein 6.3 (6.3-8.2) g/dL Albumin 3.9 (3.5-5.0) g/dL 01/25/25 01/25/25 Range/Units 12:35 12:35 WBC (3.8-10.6) k/uL RBC (4.30-5.90) m/uL Hgb (13.0-17.5) gm/dL Hct (39.0-53.0) % MCV (80.0-100.0) fL MCH (25.0-35.0) pg MCHC (31.0-37.0) g/dL RDW (11.5-15.5) % Plt Count (150-450) k/uL MPV Neutrophils % % Lymphocytes % % Monocytes % % Eosinophils % % Basophils % % Neutrophils # (1.3-7.7) k/uL Lymphocytes # (1.0-4.8) k/uL Monocytes # (0-1.0) k/uL Eosinophils # (0-0.7) k/uL Basophils # (0-0.2) k/uL Hypochromasia PT (10.0-12.5) sec INR (<1.2) APTT (22.0-30.0) sec Sodium (137-145) mmol/L Potassium (3.5-5.1) mmol/L Chloride (98-107) mmol/L Carbon Dioxide (22-30) mmol/L Anion Gap mmol/L BUN (9-20) mg/dL Creatinine (0.66-1.25) mg/dL Est GFR (CKD-EPI)AfAm (>60 ml/min/1.73 sqM) Est GFR (CKD-EPI)NonAf (>60 ml/min/1.73 sqM) Glucose (74-99) mg/dL Plasma Lactic Acid Jordan 1.4 (0.7-2.0) mmol/L Calcium (8.4-10.2) mg/dL Magnesium (1.6-2.3) mg/dL Total Bilirubin (0.2-1.3) mg/dL AST (17-59) U/L ALT (4-49) U/L Alkaline Phosphatase (38-126) U/L Troponin I <0.012 (0.000-0.034) ng/mL Total Protein (6.3-8.2) g/dL Albumin (3.5-5.0) g/dL Disposition Clinical Impression: Syncope Disposition: HOME SELF-CARE Condition: Fair Instructions (If sedation given, give patient instructions): Syncope (ED) Additional Instructions: Please monitor your blood pressure at home. Please follow-up with your primary care provider regarding your current medications. Is patient prescribed a controlled substance at d/c from ED?: No Referrals: Aden Diaz MD [Primary Care Provider] - 1-2 days Time of Disposition: 13:46
--- NOTE | 2025-01-25 12:29 | XR ---
EXAMINATION TYPE: XR chest 2V DATE OF EXAM: 01/25/2025 12:24 PM COMPARISON: 01/03/2025 CLINICAL INDICATION: Male, 44 years old with history of Weakness, TECHNIQUE: Frontal and lateral views of the chest are obtained. FINDINGS: There is no focal air space opacity, pleural effusion, or pneumothorax seen. The cardiac silhouette size is within normal limits. The osseous structures are intact. IMPRESSION: No acute cardiopulmonary process. [facility], , 01/25/2025 12:27 PM
--- NOTE | 2025-01-25 12:29 | CT ---
EXAMINATION TYPE: CT brain wo con DATE OF EXAM: 01/25/2025 COMPARISON: 12/26/2024 CLINICAL INDICATION: Male, 44 years old with history of weakness; PHH, TECHNIQUE: CT of the brain performed without contrast with sagittal and coronal reformats. CT DLP: mGycm CT CTDI: mGy Automated exposure control for dose reduction was used. FINDINGS: There is no acute intracranial hemorrhage, mass effect, or midline shift identified. The ventricles and sulci are within normal limits in size. The globes are intact and the visualized sinuses are shantell ar. IMPRESSION: No acute intracranial hemorrhage, mass effect, or midline shift is seen. [facility], , 01/25/2025 12:26 PM
[2025-01-25] MEDS: SODIUM CHLORIDE 0.9% 1,000 ML IV ONE (12:37)
[2025-01-25 12:41] VITALS: BP 110/62
[2025-01-25 12:47] LABS: Basophils % (A) 0 %; Eosinophils # (A) 0.3 k/uL (0-0.7); Eosinophils % (A) 4 %; HCT 44.5 % (39.0-53.0); HGB 14.2 gm/dL (13.0-17.5); Hypochromasia Slight; Lymphocytes # (A) 1.5 k/uL (1.0-4.8); Lymphocytes % (A) 24 %; MCH 26.7 pg (25.0-35.0); MCV 83.6 fL (80.0-100.0); Mean Platelet Volume 6.7; Monocytes # (A) 0.3 k/uL (0-1.0); Monocytes % (A) 5 %; Neutrophils # (A) 3.9 k/uL (1.3-7.7); Neutrophils % (A) 65 %; Platelet Count 249 k/uL (150-450); RBC 5.31 m/uL (4.30-5.90)
[2025-01-25 13:07] LABS: ALT 9 U/L (4-49); AST 15 U/L (17-59); African American GFR (CKD) >90 (>60 ml/min/1.73 sqM); Albumin 3.9 g/dL (3.5-5.0); Alkaline Phosphatase 72 U/L (38-126); Anion Gap 8 mmol/L; Blood Urea Nitrogen 16 mg/dL (9-20); Calcium 9.2 mg/dL (8.4-10.2); Carbon Dioxide 30 mmol/L (22-30); Chloride 99 mmol/L (98-107); Glucose 102 mg/dL (74-99); Magnesium 1.9 mg/dL (1.6-2.3); Non-African American GFR(CKD) >90 (>60 ml/min/1.73 sqM); Potassium 4.1 mmol/L (3.5-5.1); Sodium 137 mmol/L (137-145); Total Bilirubin 0.6 mg/dL (0.2-1.3); Total Protein 6.3 g/dL (6.3-8.2)
[2025-01-25 13:08] LABS: Partial Thromboplastin Time 26.4 sec (22.0-30.0); Prothrombin Time 10.9 sec (10.0-12.5)
[2025-01-25 13:57] VITALS: PULSE 80; RESP 18
== END 2025-01-25 14:00 | disposition home or self-care (01) ==
LOC: EC 11:27
DX: R55 Syncope and collapse (principal); I10 Essential (primary) hypertension; Z86.718 Personal history of other venous thrombosis and embolism; W19.XXXA Unspecified fall, initial encounter
CPT/HCPCS: 36415; 70450; 71046; 80053; 83605; 83735; 84484; 85025; 85610; 85730; 93005; 96360; 99284

== ENCOUNTER 2025-01-30 13:05 | Emergency (ER) | payer OTHER ==
--- NOTE | 2025-01-30 13:16 | ED ---
Abdominal Pain HPI - General Source: patient, RN notes reviewed Mode of arrival: wheelchair Limitations: no limitations <Christina Weber - Last Filed: 01/30/25 13:15> - General Source: patient, RN notes reviewed, old records reviewed <Jose L Mccabe - Last Filed: 01/30/25 20:32> - General Stated Complaint: rectal bleeding, dizziness, on thinners Time Seen by Provider: 01/30/25 13:15 - History of Present Illness Initial Comments: Quick note: 44-year-old male presented the ER for evaluation of abdominal pain. Patient underwent gastric bypass with Dr. Sun in June 2024. He states he is currently having left-sided abdominal discomfort along with bright red blood per rectum and with bowel movements. He also admits to vomiting. Patient is on eliquis (Christina Weber) Patient is a 44-year-old male who presents emergency department complaining of concern for GI bleeding. Patient had rectal bleeding yesterday afternoon. States he is chronically constipated and is chronically on pain medications. History of history of gastric bypass and follows up with Dr. Sun but also is on Eliquis for atrial fibrillation. States he has not had any other episodes of GI bleeding. Has chronic constipation. Is endorsing chronic lower abdominal pain over the course of the entire lower abdomen. Has no other acute complaints at this time. Presents for further evaluation. Workup started in triage. I evaluated the patient in [facility]. (Jose L Mccabe) - Related Data Home Medications Medication Instructions Recorded Confirmed Omeprazole 40 mg PO DAILY 07/10/23 01/18/25 Cyclobenzaprine HCl 10 mg PO TID PRN 11/18/23 01/18/25 Valsartan 320 mg PO DAILY 11/18/23 01/18/25 Ferrous Sulfate [Iron (65 MG 325 mg PO BID 11/30/23 01/18/25 Elemental)] EPINEPHrine (Auto Inject) [Epipen] 0.3 mg IM ONCE PRN 01/16/24 01/18/25 clonazePAM [KlonoPIN] 1 mg PO DAILY 01/16/24 01/18/25 Apixaban [Eliquis] 5 mg PO BID 06/03/24 01/18/25 Lactulose [Constulose] 30 gm PO BID PRN 06/08/24 01/18/25 Loratadine 10 mg PO DAILY 06/08/24 01/18/25 Atorvastatin [Lipitor] 80 mg PO HS 11/17/24 01/18/25 Gabapentin 600 mg PO TID 11/17/24 01/18/25 Tamsulosin HCl [Flomax] 0.4 mg PO DAILY 11/17/24 01/18/25 oxyCODONE-APAP 10-325MG [Percocet 1 tab PO Q4-6H PRN 11/17/24 01/18/25 10-325 mg] clonazePAM [KlonoPIN] 2 mg PO BID@1200,2100 12/03/24 01/18/25 Previous Rx's Medication Instructions Recorded Acetaminophen Tab [Tylenol] 1,000 mg PO Q6HR PRN #30 tablet 06/03/24 Docusate [Colace] 100 mg PO BID #60 capsule 07/27/24 Cyanocobalamin (Vitamin B-12) 1,000 mcg PO DAILY #30 tablet 11/19/24 [Vitamin B-12] Folic Acid 1 mg PO DAILY #60 tablet 11/19/24 Clopidogrel [Plavix] 75 mg PO DAILY 30 Days #30 tablet 12/06/24 niCARdipine HCL 20 mg PO TID 30 Days #90 cap 12/06/24 Nystatin 100,000 Unit/gm Powd 1 applic TOPICAL BID #60 gm 01/18/25 [Mycostatin Powder] Allergies Allergy/AdvReac Type Severity Reaction Status Date / Time No Known Allergies Allergy Verified 01/30/25 13:22 Review of Systems ROS Other: All systems not noted in ROS Statement are negative. <Christina Weber - Last Filed: 01/30/25 13:15> ROS Other: All systems not noted in ROS Statement are negative. <Jose L Mccabe - Last Filed: 01/30/25 20:32> ROS Statement: Those systems with pertinent positive or pertinent negative responses have been documented in the HPI. Review of Systems: CONST: Denies fever EYES: Denies blurry vision ENT: Denies nasal congestion C/V: Denies Chest pain RESP: Denies shortness of breath GI: Endorses abdominal pain : Denies dysuria SKIN: Denies rash. MSK: Denies joint pain. NEURO: Denies headache (Jose L Mccabe) Past Medical History Past Medical History: Atrial Fibrillation, Blood Disorder, CVA/TIA, Deep Vein Thrombosis (DVT), GERD/Reflux, Hearing Disorder / Deafness, Hypertension, Myocardial Infarction (IN), Osteoarthritis (OA), Sleep Apnea/CPAP/BIPAP Additional Past Medical History / Comment(s): DVT X 3- LAST TIME 2012- LT LEG, LUMBAR DDD- . HAS HX MTHFR GENE MUTATION-POSITIVE FOR HETEROZYGOUS PER DR. FRANCISCO'S OFFICE, doesn't not use CPAP, occasional swelling left lower leg, Pt states he had a stroke-September of 2024- left eye vision issues, speech slurring-going to speech therapy. [facility]. Last Myocardial Infarction Date:: 09/2021 History of Any Multi-Drug Resistant Organisms: None Reported Past Surgical History: Bariatric Surgery, Cardiac Ablation, Cholecystectomy, Heart Catheterization, Joint Replacement Additional Past Surgical History / Comment(s): LEFT KNEE REPLACEMENT, LT INDEX JOINT REPLACEMENT, PAIN CLINIC PROCEDURES, COLONOSCOPY, EGD. Gastric bypass 07-06-23 Past Anesthesia/Blood Transfusion Reactions: Previous Problems w/ Anesthesia, Family History of Problems w/ Anesthesia, Motion Sickness Additional Past Anesthesia/Blood Transfusion Reaction / Comment(s): HARD TO PUT TO SLEEP-(pt and father)-needs more than normal. no hx blood transfusion Past Psychological History: Depression Smoking Status: Never smoker Past Alcohol Use History: Rare Past Drug Use History: None Reported - Past Family History Sister(s) Family Medical History: Cancer Additional Family Medical History / Comment(s): Skin cancer. Mother History Unknown: Yes <Christina Weber - Last Filed: 01/30/25 13:15> General Exam <Christina Weber - Last Filed: 01/30/25 13:15> <Jose L Mccabe - Last Filed: 01/30/25 20:32> - General Exam Comments Initial Comments: Visual Physical Exam Vital signs reviewed General: Well-appearing, nontoxic, no acute distress. Head: Normocephalic, atraumatic Eyes: PERRLA, EOMI ENT: Airway patent Chest: Nonlabored breathing Skin: No visual rash, normal skin tone Neuro: Alert and oriented 3 Musculoskeletal: No gross abnormalities (Christina Weber) General: Appears in no acute distress. HEAD: Normal with no signs of head trauma. EYES: EOMI ENT: Hearing grossly intact, normal oropharynx. RESPIRATORY: Clear breath sounds bilaterally. No wheezes, rales, or rhonchi. C/V: Regular rate and rhythm. S1 and S2 auscultated, no edema, peripheral pulses 2+ and intact throughout ABD: Abdomen soft, nondistended. Tender palpation across the lower abdomen. No obvious focal tenderness. No guarding or rebound tenderness. No peritoneal signs. Rectal exam performed and revealed no evidence of gross red blood per rectum. Light brown stool. Occult blood sent.. EXT: No obvious deformity SKIN: No rashes or lesions observed on exposed skin. NEURO: Alert and oriented x 4. (Jose L Mccabe) Course Vital Signs 01/30/25 01/30/25 01/30/25 13:20 18:46 20:08 Temperature 98.1 F 97.8 F 98.2 F Pulse Rate 87 72 116 H Respiratory 20 20 18 Rate Blood Pressure 122/75 137/80 164/82 O2 Sat by Pulse 98 97 95 Oximetry Medical Decision Making <Christina Weber - Last Filed: 01/30/25 13:15> - Lab Data Result diagrams: 01/30/25 14:13 01/30/25 14:13 <Jose L Mccabe - Last Filed: 01/30/25 20:32> - Medical Decision Making I performed the quick note portion of this chart. Electronically signed by Christina Weber PA-C (Christina Weber) Was pt. sent in by a medical professional or institution ([facility], [facility], urgent care, hospital, or custodial...) When possible be specific @ -No Did you speak to anyone other than the patient for history (EMS, parent, family, police, friend...)? What history was obtained from this source @ -No Did you review nursing and triage notes (agree or disagree)? Why? @ -I reviewed and agree with nursing and triage notes Were old charts reviewed (outside hosp., previous admission, EMS record, old EKG, old radiological studies, urgent care reports/EKG's, custodial records)? Report findings @ -Reviewed old charts confirming patient is on blood thinners Differential Diagnosis (chest pain, altered mental status, abdominal pain women, abdominal pain men, vaginal bleeding, weakness, fever, dyspnea, syncope, headache, dizziness, GI bleed, back pain, seizure, CVA, palpatations, mental health, musculoskeletal)? @ -Differential GI Bleed: Esophageal varices, aortoenteric fistula, Nya-Noonan, gastritis, peptic ulcer disease, diverticulosis, inflammatory bowel disease, hemorrhoids, fissure, colitis, malignancy, Meckel's diverticulum, this is not meant to be an all- inclusive list. EKG interpreted by me (3pts min.). @ -None done X-rays interpreted by me (1pt min.). @ -None done CT interpreted by me (1pt min.). @ -CT angio abdomen pelvis negative for any obvious acute process. No evidence of acute GI bleed. Possible mild constipation. U/S interpreted by me (1pt. min.). @ -None done What testing was considered but not performed or refused? (CT, X-rays, U/S, labs)? Why? @ -None What meds were considered but not given or refused? Why? @ -None Did you discuss the management of the patient with other professionals (professionals i.e. , PA, HOUSESMITH, lab, RT, psych nurse, social worker delinquency prevention, skilled nursing facilities professional, teacher, equal employment opportunity officer, registered nurse hh case manager)? Give summary @ -Discussed with patient's surgeon Dr. Sun who after review of imaging results and lab results was in agreement with plan for discharge home and follow-up with her in the office. Was smoking cessation discussed for >3mins.? @ -No Was critical care preformed (if so, how long)? @ -No Were there social determinants of health that impacted care today? How? (Homelessness, low income, unemployed, alcoholism, drug addiction, transportation, low edu. Level, literacy, decrease access to med. care, [facility], rehab)? @ -No Was there de-escalation of care discussed even if they declined (Discuss DNR or withdrawal of care, Hospice)? DNR status @ -No What co-morbidities impacted this encounter? (DM, HTN, Smoking, COPD, CAD, Cancer, CVA, ARF, Chemo, Hep., AIDS, mental health diagnosis, sleep apnea, morbid obesity)? @ -Abdominal surgeries, on blood thinners Was patient admitted / discharged? Hospital course, mention meds given and route, prescriptions, significant lab abnormalities, going to OR and other pertinent info. @ -Based on patient's presentation and physical exam, presents emergency department complaining of abdominal pain, as well as an episode of rectal bleeding 24 hours ago. No further episodes. Workup initiated in triage which showed a normal hemoglobin of 13.6, normal coags, no other obvious findings. Occult blood is positive. Rectal exam is unremarkable with no evidence of gross red blood per rectum. CT angiogram negative for any obvious acute intra- abdominal process. Mild constipation. Patient was symptomatic treatment IV fluids, pain medications, Protonix. I discussed the results with the patient as well as his surgeon, Dr. Sun. Dr. Sun believes patient is stable for discharge home as to why. Patient will follow-up with her in the office. He was also in agreement this plan. I instructed the patient to follow up with their PCP in the next 1-3 days. . I explained that the patient should return to the emergency department if they experience any worsening symptoms. Strict return precautions were discussed with the patient. The patient expressed understanding of these instructions. I answered all questions that the patient had. The patient was discharged home in good condition with their prescriptions and follow up information. Recommended he hold his dose of Eliquis this evening as well as tomorrow morning and then he can resume. He was in agreement this plan Undiagnosed new problem with uncertain prognosis? @ -No Drug Therapy requiring intensive monitoring for toxicity (Heparin, Nitro, Insulin, Cardizem)? @ -No Were any procedures done? @ -No Diagnosis/symptom? @ -Abdominal pain of unknown cause, constipation, rectal bleeding Acute, or Chronic, or Acute on Chronic? @ -Acute Uncomplicated (without systemic symptoms) or Complicated (systemic symptoms)? @ -Uncomplicated Side effects of treatment? @ -No Exacerbation, Progression, or Severe Exacerbation? @ -No Poses a threat to life or bodily function? How? (Chest pain, [place], [place], pneumonia, PE, COPD, DKA, ARF, appy, cholecystitis, CVA, Diverticulitis, Homicidal, Suicidal, threat to staff... and all critical care pts) @ -Unlikely at this time (Jose L Mccabe) - Lab Data Lab Results 01/30/25 01/30/25 01/30/25 Range/Units 14:13 14:13 14:13 WBC 5.8 (3.8-10.6) k/uL RBC 5.10 (4.30-5.90) m/uL Hgb 13.6 (13.0-17.5) gm/dL Hct 42.1 (39.0-53.0) % MCV 82.7 (80.0-100.0) fL MCH 26.7 (25.0-35.0) pg MCHC 32.3 (31.0-37.0) g/dL RDW 13.9 (11.5-15.5) % Plt Count 250 (150-450) k/uL MPV 6.8 Neutrophils % 57 % Lymphocytes % 32 % Monocytes % 5 % Eosinophils % 5 % Basophils % 0 % Neutrophils # 3.3 (1.3-7.7) k/uL Lymphocytes # 1.8 (1.0-4.8) k/uL Monocytes # 0.3 (0-1.0) k/uL Eosinophils # 0.3 (0-0.7) k/uL Basophils # 0.0 (0-0.2) k/uL Hypochromasia Slight PT (10.0-12.5) sec INR (<1.2) APTT (22.0-30.0) sec Sodium 134 L (137-145) mmol/L Potassium 4.3 (3.5-5.1) mmol/L Chloride 99 (98-107) mmol/L Carbon Dioxide 29 (22-30) mmol/L Anion Gap 6 mmol/L BUN 11 (9-20) mg/dL Creatinine 0.81 (0.66-1.25) mg/dL Est GFR (CKD-EPI)AfAm >90 (>60 ml/min/1.73 sqM) Est GFR (CKD-EPI)NonAf >90 (>60 ml/min/1.73 sqM) Glucose 86 (74-99) mg/dL Plasma Lactic Acid Jordan 1.4 (0.7-2.0) mmol/L Calcium 9.1 (8.4-10.2) mg/dL Total Bilirubin 0.5 (0.2-1.3) mg/dL AST 21 (17-59) U/L ALT 11 (4-49) U/L Alkaline Phosphatase 74 (38-126) U/L Total Protein 6.2 L (6.3-8.2) g/dL Albumin 3.9 (3.5-5.0) g/dL Amylase 42 (30-110) U/L Lipase 54 (23-300) U/L Urine Color Urine Appearance (Clear) Urine pH (5.0-8.0) Ur Specific [place] (1.001-1.035) Urine Protein (Negative) Urine Glucose (UA) (Negative) Urine Ketones (Negative) Urine Blood (Negative) Urine Nitrite (Negative) Urine Bilirubin (Negative) Urine Urobilinogen (<2.0) mg/dL Ur Leukocyte Esterase (Negative) Urine WBC (0-5) /hpf Ur Squamous Epith Cells (0-4) /hpf Urine Mucus (None) /hpf Stool Occult Blood (Negative) 01/30/25 01/30/25 01/30/25 Range/Units 14:25 17:30 18:01 WBC (3.8-10.6) k/uL RBC (4.30-5.90) m/uL Hgb (13.0-17.5) gm/dL Hct (39.0-53.0) % MCV (80.0-100.0) fL MCH (25.0-35.0) pg MCHC (31.0-37.0) g/dL RDW (11.5-15.5) % Plt Count (150-450) k/uL MPV Neutrophils % % Lymphocytes % % Monocytes % % Eosinophils % % Basophils % % Neutrophils # (1.3-7.7) k/uL Lymphocytes # (1.0-4.8) k/uL Monocytes # (0-1.0) k/uL Eosinophils # (0-0.7) k/uL Basophils # (0-0.2) k/uL Hypochromasia PT 10.9 (10.0-12.5) sec INR 1.0 (<1.2) APTT 25.7 (22.0-30.0) sec Sodium (137-145) mmol/L Potassium (3.5-5.1) mmol/L Chloride (98-107) mmol/L Carbon Dioxide (22-30) mmol/L Anion Gap mmol/L BUN (9-20) mg/dL Creatinine (0.66-1.25) mg/dL Est GFR (CKD-EPI)AfAm (>60 ml/min/1.73 sqM) Est GFR (CKD-EPI)NonAf (>60 ml/min/1.73 sqM) Glucose (74-99) mg/dL Plasma Lactic Acid Jordan (0.7-2.0) mmol/L Calcium (8.4-10.2) mg/dL Total Bilirubin (0.2-1.3) mg/dL AST (17-59) U/L ALT (4-49) U/L Alkaline Phosphatase (38-126) U/L Total Protein (6.3-8.2) g/dL Albumin (3.5-5.0) g/dL Amylase (30-110) U/L Lipase (23-300) U/L Urine Color Yellow Urine Appearance Cloudy (Clear) Urine pH 5.5 (5.0-8.0) Ur Specific [place] 1.039 H (1.001-1.035) Urine Protein Trace H (Negative) Urine Glucose (UA) Negative (Negative) Urine Ketones Negative (Negative) Urine Blood Negative (Negative) Urine Nitrite Negative (Negative) Urine Bilirubin Negative (Negative) Urine Urobilinogen 2.0 (<2.0) mg/dL Ur Leukocyte Esterase Moderate H (Negative) Urine WBC 13 H (0-5) /hpf Ur Squamous Epith Cells 6 H (0-4) /hpf Urine Mucus Rare H (None) /hpf Stool Occult Blood Positive (Negative) Disposition <Christina Weber - Last Filed: 01/30/25 13:15> Is patient prescribed a controlled substance at d/c from ED?: No Time of Disposition: 20:00 <Jose L Mccabe - Last Filed: 01/30/25 20:32> Clinical Impression: Abdominal pain of unknown cause, Rectal bleeding, Constipation Disposition: HOME SELF-CARE Condition: Good Additional Instructions: Your workup today was unremarkable. No obvious GI bleeding noted. Spoke with Dr. Sun who is in agreement plan for discharge and follow-up with her in the office. Return to the ER for any worsening symptoms. Hold your blood thinning medication tonight and tomorrow morning and resume tomorrow afternoon. Referrals: Aden Diaz MD [Primary Care Provider] - 1-2 days Lo Sun MD [STAFF PHYSICIAN] - 1-2 days
[2025-01-30 14:22] LABS: Basophils % (A) 0 %; Eosinophils # (A) 0.3 k/uL (0-0.7); Eosinophils % (A) 5 %; HCT 42.1 % (39.0-53.0); HGB 13.6 gm/dL (13.0-17.5); Hypochromasia Slight; Lymphocytes # (A) 1.8 k/uL (1.0-4.8); Lymphocytes % (A) 32 %; MCH 26.7 pg (25.0-35.0); MCHC 32.3 g/dL (31.0-37.0); MCV 82.7 fL (80.0-100.0); Mean Platelet Volume 6.8; Monocytes # (A) 0.3 k/uL (0-1.0); Monocytes % (A) 5 %; Neutrophils # (A) 3.3 k/uL (1.3-7.7); Neutrophils % (A) 57 %; Platelet Count 250 k/uL (150-450); RDW 13.9 % (11.5-15.5); WBC 5.8 k/uL (3.8-10.6)
[2025-01-30 14:40] LABS: Appearance,Urine Cloudy (Clear); Bilirubin,Urine Negative (Negative); Blood,Urine Negative (Negative); Color,Urine Yellow; Glucose,Urine (UA) Negative (Negative); Ketones,Urine Negative (Negative); Leukocyte Esterase,Urine Moderate (Negative); Mucus,Urine Rare /hpf; Nitrite,Urine Negative (Negative); PH, Urine 5.5 (5.0-8.0); Protein,Urine Trace (Negative); Specific Gravity,Urine 1.039 (1.001-1.035); Squamous Epithelial Cell,Urine 6 /hpf (0-4); WBC,Urine 13 /hpf (0-5)
[2025-01-30 14:54] LABS: ALT 11 U/L (4-49); AST 21 U/L (17-59); African American GFR (CKD) >90 (>60 ml/min/1.73 sqM); Albumin 3.9 g/dL (3.5-5.0); Alkaline Phosphatase 74 U/L (38-126); Amylase 42 U/L (30-110); Anion Gap 6 mmol/L; Blood Urea Nitrogen 11 mg/dL (9-20); Calcium 9.1 mg/dL (8.4-10.2); Carbon Dioxide 29 mmol/L (22-30); Chloride 99 mmol/L (98-107); Glucose 86 mg/dL (74-99); Lipase 54 U/L (23-300); Non-African American GFR(CKD) >90 (>60 ml/min/1.73 sqM); Potassium 4.3 mmol/L (3.5-5.1); Sodium 134 mmol/L (137-145); Total Bilirubin 0.5 mg/dL (0.2-1.3); Total Protein 6.2 g/dL (6.3-8.2)
[2025-01-30 17:49] LABS: Partial Thromboplastin Time 25.7 sec (22.0-30.0); Prothrombin Time 10.9 sec (10.0-12.5)
[2025-01-30] MEDS: HYDROmorphone 1 MG/ML 1 ML SYRINGE IVP STA (17:55)
[2025-01-30] MEDS: SODIUM CHLORIDE 0.9% 1,000 ML IV ONE (18:01)
[2025-01-30] MEDS: PANTOPRAZOLE 40 MG/10 ML VIAL IVP STA (18:08)
--- NOTE | 2025-01-30 19:01 | CT ---
EXAMINATION TYPE: CT abdomen and pelvis without contrast. CT angiogram abdomen and pelvis with contrast. DATE OF EXAM: 01/30/2025 6:44 PM COMPARISON: None. CLINICAL INDICATION: Male, 44 years old with history of gi bleed protocol; [facility], PT c.o of BM w/ brigh t red blood. Pt reprots it took him 5hrs to have the BM. Pt reports some dizziness. TECHNIQUE: CT angio abdomen pelvis CT noncontrast abdomen pelvis followed by CT angiogram abdomen and pelvis. Multiple thin slice sub-millimeter images were obtained before and after administration of contrast. maximum intensity projection images were obtained a separate workstation.. CT angio abdomen pelvis CT Contrast: Contrast used:100 ml mL of Isovue 300 with IV Contrast, Oral contrast used: without Oral Contrast None CT DLP: 4767 mGycm, Automated exposure control for dose reduction was used. FINDINGS: CTA Abdomen and pelvis: The abdominal aorta does not demonstrate aneurysmal dilatation. Atherosclero tic plaquing is identified within the abdominal aorta. The origins of the superior mesenteric artery , renal arteries, inferior mesenteric artery, and celiac axis are patent. The iliac vessels are norm al in morphology LOWER CHEST: No evidence of focal consolidation, pneumothorax or pleural effusion. Bilateral gynecoma stia changes LIVER: Unremarkable GALLBLADDER AND BILE DUCTS: The gallbladder is surgically absent. PANCREAS: Unremarkable. SPLEEN: Unremarkable. ADRENAL GLANDS: Unremarkable. KIDNEYS AND URETERS: No evidence of hydronephrosis or renal calculus. The ureters are unremarkable. PELVIS BLADDER: Unremarkable REPRODUCTIVE: Unremarkable. ABDOMEN & PELVIS STOMACH AND BOWEL: Evaluation of the gastrointestinal tract demonstrates no evidence of high density hemorrhage on arterial phase or pooling of blood on delayed phases. Redundant sigmoid colon. Post fix ation changes to the gastric lumen. Small hiatal hernia.Moderate to large amount stool in the colon. No evidence of bowel obstruction. The appendix is normal. PERITONEUM: No evidence of pneumoperitoneum or free fluid. VASCULATURE: No evidence of aortic aneurysm. MUSCULOSKELETAL: No acute osseous abnormalities LYMPH NODES: No gross evidence for lymphadenopathy. SOFT TISSUE/ABDOMINAL WALL: Unremarkable IMPRESSION: 1. No evidence for gastrointestinal hemorrhage. No evidence for occlusion. No acute abdominal proces s. 2. Redundant sigmoid colon with moderate to large amount stool. [facility], , 01/30/2025 6:58 PM
[2025-01-30] MEDS: HYDROmorphone 0.5 MG/0.5 ML SYRINGE IVP STA (19:49)
[2025-01-30 20:13] VITALS: BP 164/82; PULSE 116; RESP 18; TEMP 98.2
== END 2025-01-30 20:17 | disposition home or self-care (01) ==
LOC: EC 13:05
DX: K62.5 Hemorrhage of anus and rectum (principal); K59.00 Constipation, unspecified; I48.91 Unspecified atrial fibrillation; Z98.84 Bariatric surgery status; Z79.01 Long term (current) use of anticoagulants
CPT/HCPCS: 36415; 80053; 82150; 83605; 83690; 85025; 85610; 85730; 82272; 81001; 87086; 74174; 99285; 96374; 96375; 96376; 96361; J1171 ×2; Q9967; J2470

== ENCOUNTER → 2025-01-30 | Outpatient (CLI) | payer OTHER ==
[2025-01-30 15:27] LABS: INR 0.97 sec (0.93-1.11); Prothrombin Time 10.9 sec (9.9-11.9)
[2025-01-30 15:35] LABS: BUN/Creat Ratio 10.67 Ratio (12.00-20.00); Blood Urea Nitrogen 9.6 mg/dL (9.0-27.0); Calcium 9.2 mg/dL (8.7-10.3); Carbon Dioxide 27.8 mmol/L (21.6-31.8); Chloride 102 mmol/L (96-109); Glucose 88 mg/dL (70-110); Potassium 4.5 mmol/L (3.5-5.5); Sodium 140 mmol/L (135-145)
[2025-01-30 16:37] LABS: HCT 43.2 % (39.6-50.0); HGB 13.7 g/dL (13.0-17.0); MCH 27.1 pg (27.0-32.0); MCHC 31.7 g/dL (32.0-37.0); MCV 85.5 FL (80.0-97.0); Mean Platelet Volume 9.1 FL (9.5-12.2); NRBC Per 100 WBC 0 X 10*3/uL (0.00-0.01); Platelet Count 222 X 10*3/uL (140-440); RBC 5.05 X 10*6/uL (4.40-5.60); RDW 13.5 % (11.5-14.5); WBC 5.05 X 10*3/uL (4.50-10.00)
== END | disposition home or self-care (01) ==
LOC: LABWHC1 12:19
PROVIDERS: ATTEND Internal Medicine
DX: Q21.12 Patent foramen ovale (principal)
CPT/HCPCS: 36415; 80048; 85027; 85610

== ENCOUNTER → 2025-02-01 | Outpatient (CLI) | payer OTHER ==
[2025-02-01 15:06] VITALS: PULSE 96; TEMP 98.3; BMI 37.8
[2025-02-01 15:07] VITALS: BP 145/92; RESP 16
--- NOTE | 2025-02-01 15:59 | P.BASOAP ---
Subjective Progress Note Date: 02/01/25 Drinking 30 oz cup, Needs increase 4 cups of daily. Suprep for constipation. Drink soup. Hgb stable. Stay on blood thinner for heart. Pain medications advised. Seeing Dr Luke. Bath tubs soaks BID warm, 15 min. LIdocaine butt. Nitroglyrein bid. Objective - Vital Signs Vital signs: Vital Signs Temp 98.3 F 02/01/25 14:56 Pulse 96 02/01/25 14:56 Resp 16 02/01/25 14:56 BP 145/92 02/01/25 14:56 Pulse Ox FiO2 Intake & Output 01/31/25 02/01/25 02/01/25 18:59 06:59 18:59 Weight 130.181 kg Assessment/Plan Plan: Date: 02/01/25 Initial Weight: Initial BMI: Current Weight: 130.181 kg Current BMI: 37.8 Type of Surgery: Total Volume in Band: Previous Volume: Volume Removed: Volume Added: Band Size:
== END ==
LOC: BARWHC3 14:24
PROVIDERS: ATTEND Surgery Plastic and Reconstructive Surgery
DX: E66.01 Morbid (severe) obesity due to excess calories (principal); Z68.37 Body mass index [BMI] 37.0-37.9, adult
CPT/HCPCS: 99211

== ENCOUNTER 2025-03-17 17:58 | Emergency (ER) | payer OTHER ==
[2025-03-17 18:11] VITALS: TEMP 98.4
[2025-03-17] MEDS: NALOXONE 0.4 MG/ML 1 ML VIAL IVP STA (18:13)
--- NOTE | 2025-03-17 18:18 | ED ---
General Adult HPI - General Stated complaint: Dizziness Time Seen by Provider: 03/17/25 18:05 Source: patient, EMS Mode of arrival: EMS Limitations: no limitations - History of Present Illness Initial comments: Dictation was produced using [employer] dictation software. please excuse any grammatical, word or spelling errors. Chief Complaint: 45-year-old male with history of blood clot presents to the ER for fall History of Present Illness: Patient is 45-year-old male with history of blood clots. History of present illness obtained from daughter at the bedside along with the working on his boat. He started to stumble. Lowered to the chair with some assistance by family. Patient refused to sit so he stood straight up. EMS states that there is expressed concern by family that patient took too many of his narcotic pain medications anticoagulation medication for blood clots. Patient denies any complaints at this time. The ROS documented in this emergency department record has been reviewed and confirmed by me. Those systems with pertinent positive or negative responses have been documented in the HPI. All other systems are other negative and/or noncontributory. - Related Data Home Medications Medication Instructions Recorded Confirmed Omeprazole 40 mg PO DAILY 07/10/23 03/17/25 Cyclobenzaprine HCl 10 mg PO TID PRN 11/18/23 03/17/25 Valsartan 320 mg PO DAILY 11/18/23 03/17/25 clonazePAM [KlonoPIN] 1 mg PO DAILY 01/16/24 03/17/25 Apixaban [Eliquis] 5 mg PO BID 06/03/24 03/17/25 Tamsulosin HCl [Flomax] 0.4 mg PO DAILY 11/17/24 03/17/25 oxyCODONE-APAP 10-325MG [Percocet 1 tab PO Q4-6H PRN 11/17/24 03/17/25 10-325 mg] clonazePAM [KlonoPIN] 4 mg PO HS 12/03/24 03/17/25 Atorvastatin [Lipitor] 40 mg PO HS 03/17/25 03/17/25 Famotidine [Pepcid] 20 mg PO DAILY 03/17/25 03/17/25 Metoprolol Tartrate [Lopressor] 25 mg PO BID 03/17/25 03/17/25 Zinc Gluconate [Zinc] 50 mg PO DAILY 03/17/25 03/17/25 hydroCHLOROthiazide [Hydrodiuril] 25 mg PO DAILY 03/17/25 03/17/25 Previous Rx's Medication Instructions Recorded Docusate [Colace] 100 mg PO BID #60 capsule 07/27/24 Folic Acid 1 mg PO DAILY #60 tablet 11/19/24 Clopidogrel [Plavix] 75 mg PO DAILY 30 Days #30 tablet 12/06/24 Nystatin 100,000 Unit/gm Powd 1 applic TOPICAL BID #60 gm 01/18/25 [Mycostatin Powder] Allergies Allergy/AdvReac Type Severity Reaction Status Date / Time No Known Allergies Allergy Verified 03/17/25 19:47 Review of Systems ROS Statement: Those systems with pertinent positive or pertinent negative responses have been documented in the HPI. ROS Other: All systems not noted in ROS Statement are negative. Past Medical History Past Medical History: Atrial Fibrillation, Blood Disorder, CVA/TIA, Deep Vein Thrombosis (DVT), GERD/Reflux, Hearing Disorder / Deafness, Hypertension, Myocardial Infarction ([place]), Osteoarthritis (OA), Sleep Apnea/CPAP/BIPAP Additional Past Medical History / Comment(s): DVT X 3- LAST TIME 2012- LT LEG, LUMBAR DDD- . HAS HX MTHFR GENE MUTATION-POSITIVE FOR HETEROZYGOUS PER DR. FRANCISCO'S OFFICE, doesn't not use CPAP, occasional swelling left lower leg, Pt states he had a stroke-September of 2024- left eye vision issues, speech slurring-going to speech therapy. [facility] being [facility]. Last Myocardial Infarction Date:: 09/2021 History of Any Multi-Drug Resistant Organisms: None Reported Past Surgical History: Bariatric Surgery, Cardiac Ablation, Cholecystectomy, Hea rt Catheterization, Joint Replacement Additional Past Surgical History / Comment(s): LEFT KNEE REPLACEMENT, LT INDEX JOINT REPLACEMENT, PAIN CLINIC PROCEDURES, COLONOSCOPY, EGD. Gastric bypass 07-06-23 Past Anesthesia/Blood Transfusion Reactions: Previous Problems w/ Anesthesia, Family History of Problems w/ Anesthesia, Motion Sickness Additional Past Anesthesia/Blood Transfusion Reaction / Comment(s): HARD TO PUT TO SLEEP-(pt and father)-needs more than normal. no hx blood transfusion Past Psychological History: Depression Smoking Status: Never smoker Past Alcohol Use History: Rare Past Drug Use History: Prescription Drug Abuse - Past Family History Sister(s) Family Medical History: Cancer Additional Family Medical History / Comment(s): Skin cancer. Mother History Unknown: Yes General Exam - General Exam Comments Initial Comments: PHYSICAL EXAM: General Impression: Alert and oriented x3, somnolent, arousable HEENT: Normocephalic atraumatic, extra-ocular movements intact, pinpoint pupils bilaterally, mucous membranes moist. Cardiovascular: Heart regular rate and rhythm Chest: Able to complete full sentences, no retractions, no tachypnea Abdomen: abdomen soft, non-tender, non-distended, no organomegaly Musculoskeletal: Pulses present and equal in all extremities, no peripheral edema Motor: no focal deficits noted Neurological: CN II-XII grossly intact, no focal motor or sensory deficits noted Skin: Intact with no visualized rashes Psych: Normal affect and mood Limitations: no limitations Course Vital Signs 03/17/25 03/17/25 03/17/25 18:04 18:13 19:32 Temperature 98.4 F Pulse Rate 116 H 125 H Respiratory 10 L 10 L 18 Rate Blood Pressure 108/73 118/77 O2 Sat by Pulse 95 99 Oximetry - Reevaluation(s) Reevaluation #1: 03/17/25 18:34 patient given 0.4mg of Narcan with dramatic improvement of mentation EKG Findings - EKG Comments: EKG Findings:: My EKG interpretation: Ventricular rate 112, sinus tachycardia, HI 130, cures 116, QTc 36. No HI prolongation, no QTC prolongation, no ST or T- wave changes noted. Overall, this EKG is unremarkable Medical Decision Making - Medical Decision Making Was pt. sent in by a medical professional or institution (, PA, EVENT PLANNING INTERN, urgent care, hospital, or fpc...) When possible be specific @ -No Did you speak to anyone other than the patient for history (EMS, parent, family, police, friend...)? What history was obtained from this source @ -See above Did you review nursing and triage notes (agree or disagree)? Why? @ -I reviewed and agree with nursing and triage notes Were old charts reviewed (outside hosp., previous admission, EMS record, old EKG, old radiological studies, urgent care reports/EKG's, fpc records)? Report findings @ -No old charts were reviewed Differential Diagnosis (chest pain, altered mental status, abdominal pain women, abdominal pain men, vaginal bleeding, musculoskeletal, weakness, fever, dyspnea, syncope, headache, dizziness, GI bleed, back pain, seizure, CVA, palpatations, mental health)? @ -Differential Altered Mental Status: Hypoglycemia, DKA, hypercapnia, ETOH, overdose, CO poisoning, trauma, myxedema coma, HTN encephalopathy, infection, encephalitis, psychosis, intercranial hemorrhage, hepatic encephalopathy, meningitis, CVA, this is not meant to be an all-inclusive list EKG interpreted by me (3pts min.). @ -The above X-rays interpreted by me (1pt min.). @ -None done CT interpreted by me (1pt min.). @ -CT brain and C-spine shows no acute processes U/S interpreted by me (1pt. min.). @ -None done What testing was considered but not performed or refused? (CT, X-rays, U/S, labs)? Why? @ -None What meds were considered but not given or refused? Why? @ -None Was smoking cessation discussed for >3mins.? @ -No Were there social determinants of health that impacted care today? How? (Homelessness, low income, unemployed, alcoholism, drug addiction, transportation, low edu. Level, literacy, decrease access to med. care, [facility], rehab)? @ -No Was there de-escalation of care discussed even if they declined (Discuss DNR or withdrawal of care, Hospice)? DNR status @ -No What co-morbidities impacted this encounter? (DM, HTN, Smoking, COPD, CAD, Cancer, CVA, ARF, Chemo, Hep., AIDS, mental health diagnosis, sleep apnea, morbid obesity)? @ -None Was patient admitted / discharged? Hospital course, mention meds given and route, prescriptions, significant lab abnormalities, going to OR and other pertinent info. @ -45-year-old male presents after fall. Takes anticoagulation medications. Patient has symptoms of opiate toxidrome. Given Narcan with immediate resolution of his symptoms. Imaging studies are negative. Patient denies any suicidal homicidal ideation. Observed emergency department for approximately 2 hours. 8:00 PM patient awake alert showing no signs of distress or somnolence. Patient told that his symptoms are secondary to ingesting too much of his medications. She told to be careful. Patient states that he will be mindful of his use. Patient Did you discuss the management of the patient with other professionals (professionals i.e. , PA, EVENT PLANNING INTERN, lab, RT, psych nurse, social media assistant, asset protection officer, teacher, facilities officer, manager of case management)? Give summary @ -No Was critical care preformed (if so, how long)? @ -No Undiagnosed new problem with uncertain prognosis? @ -No Drug Therapy requiring intensive monitoring for toxicity (Heparin, Nitro, Insulin, Cardizem)? @ -No Were any procedures done? @ -No Diagnosis/symptom? Acute, or Chronic, or Acute on Chronic? Uncomplicated (without systemic symptoms) or Complicated (systemic symptoms)? @ -Opiate toxicity Side effects of treatment? @ -No Exacerbation, Progression, or Severe Exacerbation? @ -No Poses a threat to life or bodily function? How? (Chest pain, USA, [place], pneumonia, PE, COPD, DKA, ARF, appy, cholecystitis, CVA, Diverticulitis, Homicidal, Suicidal, threat to staff... and all critical care pts) @ -yes - Lab Data Result diagrams: 03/17/25 18:52 03/17/25 18:52 Lab Results 03/17/25 03/17/25 03/17/25 Range/Units 18:52 18:52 18:52 WBC 11.85 H (4.50-10.00) 10*3/uL RBC 4.86 (4.40-5.60) 10*6/uL Hgb 13.7 (13.0-17.0) g/dL Hct 40.8 (39.6-50.0) % MCV 84.0 (80.0-97.0) fL MCH 28.2 (27.0-32.0) pg MCHC 33.6 (32.0-37.0) g/dL Plt Count 183 (140-440) 10*3/uL MPV 8.7 L (9.5-12.2) fL Immature Gran % (Auto) 0.5 % Neutrophils % 82.8 % Lymphocytes % 10.6 % Monocytes % 4.8 % Eosinophils % 1.0 % Basophils % 0.3 % Immature Gran # 0.06 H (0.00-0.04) 10*3/uL Neutrophils # 9.81 H (1.80-7.70) 10*3/uL Lymphocytes # 1.26 (0.90-5.00) 10*3/uL Monocytes # 0.57 (0.20-1.00) 10*3/uL Eosinophils # 0.12 (0.04-0.35) 10*3/uL Basophils # 0.03 (0.00-0.10) 10*3/uL PT 10.5 (10.0-12.5) sec INR 0.9 (<1.2) APTT 23.7 (22.0-30.0) sec Sodium 136 L (137-145) mmol/L Potassium 4.0 (3.5-5.1) mmol/L Chloride 101 (98-107) mmol/L Carbon Dioxide 28 (22-30) mmol/L Anion Gap 7 mmol/L BUN 16 (9-20) mg/dL Creatinine 1.24 (0.66-1.25) mg/dL Est GFR (CKD-EPI)AfAm 81 (>60 ml/min/1.73 sqM) Est GFR (CKD-EPI)NonAf 70 (>60 ml/min/1.73 sqM) Glucose 79 (74-99) mg/dL Calcium 9.4 (8.4-10.2) mg/dL Acetaminophen 17.4 ug/mL Disposition Clinical Impression: Narcotic abuse Disposition: HOME SELF-CARE Condition: Fair Instructions (If sedation given, give patient instructions): Oxycodone/Acetaminophen (By mouth) Is patient prescribed a controlled substance at d/c from ED?: No Referrals: Aden Diaz MD [Primary Care Provider] - 1-2 days Time of Disposition: 19:57
[2025-03-17 18:56] LABS: Basophils # (A) 0.03 10*3/uL (0.00-0.10); Basophils % (A) 0.3 %; Eosinophils # (A) 0.12 10*3/uL (0.04-0.35); HCT 40.8 % (39.6-50.0); HGB 13.7 g/dL (13.0-17.0); Lymphocytes # (A) 1.26 10*3/uL (0.90-5.00); Lymphocytes % (A) 10.6 %; MCH 28.2 pg (27.0-32.0); MCHC 33.6 g/dL (32.0-37.0); Mean Platelet Volume 8.7 fL (9.5-12.2); Monocytes # (A) 0.57 10*3/uL (0.20-1.00); Monocytes % (A) 4.8 %; Neutrophils # (A) 9.81 10*3/uL (1.80-7.70); Neutrophils % (A) 82.8 %; Platelet Count 183 10*3/uL (140-440); RBC 4.86 10*6/uL (4.40-5.60); RDW 13.2 % (11.5-14.5); WBC 11.85 10*3/uL (4.50-10.00)
--- NOTE | 2025-03-17 19:01 | CT ---
EXAMINATION TYPE: CT brain cspine wo con DATE OF EXAM: 03/17/2025 6:40 PM COMPARISON: Previous CT study 01/25/2025. CLINICAL INDICATION: Male, 45 years old with history of fall; WEAKNESS, FALL TECHNIQUE: Brain: Multiple axial CT images of the brain were obtained without IV contrast. Cspine: Axial CT images from the skull base to the inferior aspect of T2 we obtained without intraven ous contrast. Coronal and sagittal reformatted images were also reviewed. . CT DLP: 1477.4 mGycm, Automated exposure control for dose reduction was used. FINDINGS: Brain: Extra-axial spaces: No abnormal extra-axial fluid collections. Ventricular system: Within normal limits Cerebral parenchyma: No acute intraparenchymal hemorrhage or mass effect. The martin-white junction is well differentiated. Cerebellum: Unremarkable. Mass effect: No evidence of midline shift. Intracranial vasculature: unremarkable Soft tissues: Normal. Calvarium/osseous structures: No depressed skull fracture. Paranasal sinuses and mastoid air cells: Clear. Visualized orbits: Orbital contents are intact. Cervical spine: Fracture: None. Osseous structures: Unremarkable Vertebral alignment: Within normal limits. Spinal canal/Neural Foramina: No evidence of high-grade spinal canal narrowing. No evidence for high- grade neural foraminal stenosis. Neck soft tissues: Prevertebral soft tissues are within normal limits. Other: The airway is patent. The lung apices are clear. IMPRESSION: 1. No acute intracranial process. 2. No evidence of cervical spine fracture. [facility], , 03/17/2025 6:59 PM
[2025-03-17 19:05] LABS: Acetaminophen 17.4 ug/mL; African American GFR (CKD) 81 (>60 ml/min/1.73 sqM); Anion Gap 7 mmol/L; Blood Urea Nitrogen 16 mg/dL (9-20); Calcium 9.4 mg/dL (8.4-10.2); Carbon Dioxide 28 mmol/L (22-30); Chloride 101 mmol/L (98-107); Glucose 79 mg/dL (74-99); Non-African American GFR(CKD) 70 (>60 ml/min/1.73 sqM); Sodium 136 mmol/L (137-145)
[2025-03-17 19:30] LABS: INR 0.9 (<1.2); Partial Thromboplastin Time 23.7 sec (22.0-30.0); Prothrombin Time 10.5 sec (10.0-12.5)
[2025-03-17 19:35] VITALS: RESP 18
[2025-03-17 20:03] VITALS: BP 106/77; PULSE 121
== END 2025-03-17 20:02 | disposition home or self-care (01) ==
LOC: EC 17:58
DX: F11.10 Opioid abuse, uncomplicated (principal)
CPT/HCPCS: 36415; 93005; 80048; 85025; 85610; 85730; 80143; 72125; 70450; 99284; 96374; J2310

== ENCOUNTER 2025-03-25 15:33 | Emergency (ER) | payer OTHER ==
[2025-03-25 15:41] VITALS: TEMP 98.6
--- NOTE | 2025-03-25 16:14 | ED ---
Neuro HPI - General Chief Complaint: Neuro Symptoms/Deficit Stated Complaint: stroke like symptoms Time Seen by Provider: 03/25/25 15:47 Source: patient, RN notes reviewed, old records reviewed Mode of arrival: wheelchair Limitations: no limitations - History of Present Illness Is the patient presenting with stroke symptoms?: No -: days(s) (2) Initial Comments: This is a 45-year-old male well-known to this ER for neurologic complaints coming in for evaluation regards to blurry vision dizziness off balance occasional headaches going on for 2 days now. Patient is on aspirin Plavix Eliquis which she has been taking. Patient states his symptoms have persisted especially the balance and coordination which he feels like is worse today. Patient does have a long medical history underlying gastric bypass surgery, A- fib high blood pressure prior [place] as well as multiple other surgeries abdominally. Location: speech, dysarthria, left arm, ataxia Place: home Severity: mild Quality: weak, numb, tingling Improves With: none Worsens With: none On Anticoagulants: Yes Context: gradual onset Associated Symptoms: denies other symptoms Treatments Prior to Arrival: none - Related Data Home Medications: Home Medications Medication Instructions Recorded Confirmed Omeprazole 40 mg PO DAILY 07/10/23 03/17/25 Cyclobenzaprine HCl 10 mg PO TID PRN 11/18/23 03/17/25 Valsartan 320 mg PO DAILY 11/18/23 03/17/25 clonazePAM [KlonoPIN] 1 mg PO DAILY 01/16/24 03/17/25 Apixaban [Eliquis] 5 mg PO BID 06/03/24 03/17/25 Tamsulosin HCl [Flomax] 0.4 mg PO DAILY 11/17/24 03/17/25 oxyCODONE-APAP 10-325MG [Percocet 1 tab PO Q4-6H PRN 11/17/24 03/17/25 10-325 mg] clonazePAM [KlonoPIN] 4 mg PO HS 12/03/24 03/17/25 Atorvastatin [Lipitor] 40 mg PO HS 03/17/25 03/17/25 Famotidine [Pepcid] 20 mg PO DAILY 03/17/25 03/17/25 Metoprolol Tartrate [Lopressor] 25 mg PO BID 03/17/25 03/17/25 Zinc Gluconate [Zinc] 50 mg PO DAILY 03/17/25 03/17/25 hydroCHLOROthiazide [Hydrodiuril] 25 mg PO DAILY 03/17/25 03/17/25 Previous Rx's Medication Instructions Recorded Docusate [Colace] 100 mg PO BID #60 capsule 07/27/24 Folic Acid 1 mg PO DAILY #60 tablet 11/19/24 Clopidogrel [Plavix] 75 mg PO DAILY 30 Days #30 tablet 12/06/24 Nystatin 100,000 Unit/gm Powd 1 applic TOPICAL BID #60 gm 01/18/25 [Mycostatin Powder] Allergies/Adverse Reactions: Allergies Allergy/AdvReac Type Severity Reaction Status Date / Time No Known Allergies Allergy Verified 03/25/25 15:41 Review of Systems ROS Statement: Those systems with pertinent positive or pertinent negative responses have been documented in the HPI. ROS Other: All systems not noted in ROS Statement are negative. General Exam Limitations: no limitations General appearance: alert, in no apparent distress Head exam: Present: atraumatic, normocephalic, normal inspection Eye exam: Present: normal appearance, PERRL, EOMI, nystagmus (Mild). Absent: scleral icterus, conjunctival injection, periorbital swelling ENT exam: Present: normal exam, mucous membranes moist Neck exam: Present: normal inspection. Absent: tenderness, meningismus, l ymphadenopathy Respiratory exam: Present: normal lung sounds bilaterally. Absent: respiratory distress, wheezes, rales, rhonchi, stridor Cardiovascular Exam: Present: regular rate, normal rhythm, normal heart sounds. Absent: systolic murmur, diastolic murmur, rubs, gallop, clicks GI/Abdominal exam: Present: soft, normal bowel sounds. Absent: distended, tenderness, guarding, rebound, rigid Extremities exam: Present: normal inspection, full ROM, normal capillary refill. Absent: tenderness, pedal edema, joint swelling, calf tenderness Back exam: Present: normal inspection Neurological exam: Present: alert, oriented X3, CN II-XII intact Psychiatric exam: Present: normal affect, normal mood Skin exam: Present: warm, dry, intact, normal color. Absent: rash Stroke MDM - NIH Stroke Scale 1a. Level of Consciousness: (0) alert 1b. LOC Questions: (0) answers correctly 1c. LOC Commands: (0) performs tasks correctly 2. Best Gaze: (0) normal 3. Visual: (0) no visual loss 4. Facial Palsy: (0) normal symmetrical movement 5a. Motor Arm Left: (0) no drift 5b. Motor Arm Right: (0) no drift 6a. Motor Leg Left: (0) no drift 6b. Motor Leg Right: (0) no drift 7. Limb Ataxia: (0) absent 8. Sensory: (0) normal 9. Best Language: (0) no aphasia 10. Dysarthria: (0) normal 11. Extinction/Inattention: (0) no abnormality - Thrombolytic Inclusion/Exclusion Thrombolytic Exclusion Criteria: Symptom Onset > 4.5 Hours - Medical Decision Making 45 male to the ER today for slurred speech ataxia and off-balance. Patient has normal CT scan here in the ER will be given vertiginous instructions and can be discharged home - Radiology Data Radiology results: report reviewed (CT brain is negative for acute disease), image reviewed Past Medical History Past Medical History: Atrial Fibrillation, Blood Disorder, CVA/TIA, Deep Vein Thrombosis (DVT), GERD/Reflux, Hearing Disorder / Deafness, Hypertension, Myocardial Infarction ([place]), Osteoarthritis (OA), Sleep Apnea/CPAP/BIPAP Additional Past Medical History / Comment(s): DVT X 3- LAST TIME 2012- LT LEG, LUMBAR DDD- . HAS HX MTHFR GENE MUTATION-POSITIVE FOR HETEROZYGOUS PER DR. FRANCISCO'S OFFICE, doesn't not use CPAP, occasional swelling left lower leg, Pt states he had a stroke-September of 2024- left eye vision issues, speech slurring-going to speech therapy. PFO being seen by cardiology in [facility]. Last Myocardial Infarction Date:: 09/2021 History of Any Multi-Drug Resistant Organisms: None Reported Past Surgical History: Bariatric Surgery, Cardiac Ablation, Cholecystectomy, Heart Catheterization, Joint Replacement Additional Past Surgical History / Comment(s): LEFT KNEE REPLACEMENT, LT INDEX JOINT REPLACEMENT, PAIN CLINIC PROCEDURES, COLONOSCOPY, EGD PF closure. Gastric bypass 07-06-23 Past Anesthesia/Blood Transfusion Reactions: Previous Problems w/ Anesthesia, Family History of Problems w/ Anesthesia, Motion Sickness Additional Past Anesthesia/Blood Transfusion Reaction / Comment(s): HARD TO PUT TO SLEEP-(pt and father)-needs more than normal. no hx blood transfusion Past Psychological History: Depression Smoking Status: Never smoker Past Alcohol Use History: Rare Past Drug Use History: Prescription Drug Abuse - Past Family History Sister(s) Family Medical History: Cancer Additional Family Medical History / Comment(s): Skin cancer. Mother History Unknown: Yes Course Vital Signs 03/25/25 15:36 Temperature 98.6 F Pulse Rate 100 Respiratory 18 Rate Blood Pressure 149/93 O2 Sat by Pulse 98 Oximetry - Reevaluation(s) Reevaluation #1: 03/25/25 16:42 Medical records reviewed Reevaluation #2: 03/25/25 16:42 Patient's symptoms are unchanged Reevaluation #3: 03/25/25 16:42 Patient informed of results questions answered Reevaluation #4: Was pt. sent in by a medical professional or institution (, [facility], TANK ASSEMBLER, urgent care, hospital, or [facility]...) When possible be specific @ -no Did you speak to anyone other than the patient for history (EMS, parent, family, police, friend...)? What history was obtained from this source @ -no Did you review nursing and triage notes (agree or disagree)? Why? @ -agree Are old charts reviewed (outside hosp., previous admission, EMS record, old EKG, old radiological studies, urgent care reports/EKG's, [facility] records)? Report findings @ -yes Differential Diagnosis (chest pain, altered mental status, abdominal pain women, abdominal pain men, vaginal bleeding, weakness, fever, dyspnea, syncope, headache, dizziness, GI bleed, back pain, seizure, CVA, palpatations, mental health, musculoskeletal)? @ -prior EKG interpreted by me (3pts min.). @ -yes X-rays interpreted by me (1pt min.). @ -yes negative for acute disease CT interpreted by me (1pt min.). @ -no U/S interpreted by me (1pt. min.). @ -no What testing was considered but not performed or refused? (CT, X-rays, U/S, labs)? Why? @ -none What meds were considered but not given or refused? Why? @ -none Did you discuss the management of the patient with other professionals (professionals i.e. [facility] Valdez, TANK ASSEMBLER, lab, RT, psych nurse, psychiatric social worker, babcock tester, teacher, ict help desk officer, case preparer and liner)? Give summary @ -no Was smoking cessation discussed for >3mins.? @ -no Was critical care preformed (if so, how long)? @ -no Were there social determinants of health that impacted care today? How? (Homelessness, low income, unemployed, alcoholism, drug addiction, transportation, low edu. Level, literacy, decrease access to med. care, prison, rehab)? @ -none Was there de-escalation of care discussed even if they declined (Discuss DNR or withdrawal of care, Hospice)? DNR status @ -no What co-morbidities impacted this encounter? (DM, HTN, Smoking, COPD, CAD, Cancer, CVA, ARF, Chemo, Hep., AIDS, mental health diagnosis, sleep apnea, morbid obesity)? @ -none Was patient admitted / discharged? Hospital course, mention meds given and route, prescriptions, significant lab abnormalities, going to OR and other pertinent info. @ - Undiagnosed new problem with uncertain prognosis? @ -no Drug Therapy requiring intensive monitoring for toxicity (Heparin, Nitro, Insulin, Cardizem)? @ -no Were any procedures done? @ -no Diagnosis/symptom? @ - Acute, or Chronic, or Acute on Chronic? @ -Acute Uncomplicated (without systemic symptoms) or Complicated (systemic symptoms)? @ -Complicated Side effects of treatment? @ -no Exacerbation, Progression, or Severe Exacerbation? @ -exacerbation Poses a threat to life or bodily function? How? (Chest pain, [place], [place], pneumonia, PE, COPD, DKA, ARF, appy, cholecystitis, CVA, Diverticulitis, Homicidal, Suicidal, threat to staff... and all critical care pts) @ -yes Reevaluation #5: Differential Dizziness: Benign paroxysmal positional Vertigo, Meniere's disease, otitis media, acoustic neuroma, vertebrobasilar insufficiency, cerebellar stroke, encephalitis, hypovolemic, arrhythmia, coronary artery syndrome, anemia, this is not meant to be an all-inclusive list Differential CVA Ischemic stroke, hemorrhagic stroke, brain tumor, atypical migraine, Wernicke's encephalopathy, seizure, multiple sclerosis, meningitis, encephalitis, hypoglycemia, Guillain-Camacho, electrolytes disturbance, myasthenia gravis.... This is not meant to be an all-inclusive list Disposition Clinical Impression: Vertigo Disposition: HOME SELF-CARE Condition: Fair Instructions (If sedation given, give patient instructions): Vertigo (ED) Is patient prescribed a controlled substance at d/c from ED?: No Referrals: Aden Diaz MD [Primary Care Provider] - 1-2 days Joann Quach MD [REFERRING] - 1-2 days Time of Disposition: 16:40
--- NOTE | 2025-03-25 16:29 | CT ---
EXAMINATION TYPE: CT brain wo con DATE OF EXAM: 03/25/2025 3:58 PM COMPARISON: Prior study 03/27/2025. CLINICAL INDICATION: Male, 45 years old with history of muniz, visual disturnbance, left arm numbness TECHNIQUE: Brain: Axial CT images of the brain were obtained with coronal and sagittal reformats created and rev iewed. Contrast used: None. Oral contrast used: None. CT DLP: 1240.4 mGycm, Automated exposure control for dose reduction was used. FINDINGS: Brain: Extra-axial spaces: No abnormal extra-axial fluid collections. Ventricular system: Within normal limits Cerebral parenchyma: No acute intraparenchymal hemorrhage or mass effect. The martin-white junction is well differentiated. Cerebellum: Unremarkable. Mass effect: No evidence of midline shift. Intracranial vasculature: unremarkable Soft tissues: Normal. Calvarium/osseous structures: No depressed skull fracture. Paranasal sinuses and mastoid air cells: Mild scattered paranasal sinus disease. Visualized orbits: Orbital contents are intact. IMPRESSION: No acute intracranial process. [facility], , 03/25/2025 4:27 PM
[2025-03-25] MEDS: traMADol 50 MG TAB PO STA (17:23)
[2025-03-25] MEDS: MECLIZINE 12.5 MG TAB PO STA (17:24)
[2025-03-25] MEDS: traMADol 50 MG STARTER PACK 3 TAB BTL PO STA (17:24)
[2025-03-25 17:29] VITALS: BP 145/93; PULSE 92; RESP 17
== END 2025-03-25 18:20 | disposition home or self-care (01) ==
LOC: EC 15:33
DX: R42 Dizziness and giddiness (principal)
CPT/HCPCS: 70450; 99284

== ENCOUNTER 2025-04-30 12:07 | Emergency (ER) | payer OTHER ==
[2025-04-30 12:34] VITALS: TEMP 98.2
--- NOTE | 2025-04-30 13:26 | XR ---
Chest, 2 view. CLINICAL INDICATION: Male, 45 years old with history of dysrhythmia COMPARISON: 01/25/2025. TECHNIQUE: PA and lateral views the chest are obtained. FINDINGS: The lungs are clear and there is no consolidative or interstitial opacity. There is no pleural effusion or pneumothorax. The heart, pulmonary vasculature, mediastinum and jacque appear normal. The osseous structures are intact. IMPRESSION: No significant abnormality seen. No acute cardiopulmonary disease. [facility], , 04/30/2025 1:24 PM
--- NOTE | 2025-04-30 13:41 | CT ---
EXAMINATION TYPE: CT brain wo con DATE OF EXAM: 04/30/2025 COMPARISON: 03/25/2025 CLINICAL INDICATION: Male, 45 years old with history of ROBLERO; PHH, dizziness, SOB, and feeling like his heart is racing. Patient has history of Afib. Patient also states having a severe headache yesterday with some vision loss CT DLP: 1166.7 mGycm Automated exposure control for dose reduction was used. Findings: The ventricles, basal cisterns and sulci over the convexities are within normal limits and there is n o mass effect or shift of midline structures. No abnormal density is seen throughout the brain parenchyma and there is no acute intra or extra-axia l hemorrhage. The posterior fossa including the brainstem, fourth ventricle and cerebellar pontine angles appear no rmal. Intraorbital contents appear normal and symmetric. Visualized paranasal sinuses and mastoid air cells are well aerated. The calvarium is intact. IMPRESSION: No significant abnormality seen. There is no acute bleed or mass effect. No interval change. [facility], Workstation: [id number] 04/30/2025 1:39 PM
--- NOTE | 2025-04-30 14:11 | ED ---
Arrhythmia/Palpitations HPI - General Chief Complaint: Arrhythmia/Palpitations Stated Complaint: heart flutters, dizziness Time Seen by Provider: 04/30/25 12:42 Source: patient, RN notes reviewed Mode of arrival: ambulatory Limitations: no limitations - History of Present Illness Initial Comments: 45-year-old male presents emergency department complaint of palpitations, lightheadedness and dizziness. Patient states she has had some chest discomfort has not felt well for the last day or so. Patient states she is also had a headache that has been ongoing. States one of the worst headache she has had was not sudden on its symptoms. Patient does admit that he has prior cardiac disease and prior strokes he had a PFO closed approximately 1 month ago. Patient denies any complications with his procedure. Patient states he is on Eliquis. Denies falls no head injury no focal weakness - Related Data Home Medications Medication Instructions Recorded Confirmed Omeprazole 40 mg PO DAILY 07/10/23 03/29/25 Cyclobenzaprine HCl 10 mg PO TID PRN 11/18/23 03/29/25 Valsartan 320 mg PO DAILY 11/18/23 03/29/25 clonazePAM [KlonoPIN] 1 mg PO DAILY 01/16/24 03/29/25 Apixaban [Eliquis] 5 mg PO BID 06/03/24 03/29/25 Tamsulosin HCl [Flomax] 0.4 mg PO DAILY 11/17/24 03/29/25 oxyCODONE-APAP 10-325MG [Percocet 1 tab PO Q4-6H PRN 11/17/24 03/29/25 10-325 mg] clonazePAM [KlonoPIN] 4 mg PO HS 12/03/24 03/29/25 Atorvastatin [Lipitor] 40 mg PO HS 03/17/25 03/29/25 Famotidine [Pepcid] 20 mg PO DAILY 03/17/25 03/29/25 Metoprolol Tartrate [Lopressor] 25 mg PO BID 03/17/25 03/29/25 Zinc Gluconate [Zinc] 50 mg PO DAILY 03/17/25 03/29/25 hydroCHLOROthiazide [Hydrodiuril] 25 mg PO DAILY 03/17/25 03/29/25 Previous Rx's Medication Instructions Recorded Docusate [Colace] 100 mg PO BID #60 capsule 07/27/24 Folic Acid 1 mg PO DAILY #60 tablet 11/19/24 Clopidogrel [Plavix] 75 mg PO DAILY 30 Days #30 tablet 12/06/24 Nystatin 100,000 Unit/gm Powd 1 applic TOPICAL BID #60 gm 01/18/25 [Mycostatin Powder] Meclizine [Antivert] 25 mg PO TID #30 tab 03/25/25 Allergies Allergy/AdvReac Type Severity Reaction Status Date / Time No Known Allergies Allergy Verified 04/30/25 12:34 Review of Systems ROS Statement: Those systems with pertinent positive or pertinent negative responses have been documented in the HPI. ROS Other: All systems not noted in ROS Statement are negative. Past Medical History Past Medical History: Atrial Fibrillation, Blood Disorder, CVA/TIA, Deep Vein Thrombosis (DVT), GERD/Reflux, Hearing Disorder / Deafness, Hypertension, Myocardial Infarction (NH), Osteoarthritis (OA), Sleep Apnea/CPAP/BIPAP Additional Past Medical History / Comment(s): DVT X 3- LAST TIME 2012- LT LEG, LUMBAR DDD- . HAS HX MTHFR GENE MUTATION-POSITIVE FOR HETEROZYGOUS PER DR. FRANCISCO'S OFFICE, doesn't not use CPAP, occasional swelling left lower leg, Pt states he had a stroke-September of 2024- left eye vision issues, speech slurring-going to speech therapy. PFO being seen by cardiology in [facility]. Last Myocardial Infarction Date:: 09/2021 History of Any Multi-Drug Resistant Organisms: None Reported Past Surgical History: Bariatric Surgery, Cardiac Ablation, Cholecystectomy, Heart Catheterization, Joint Replacement Additional Past Surgical History / Comment(s): LEFT KNEE REPLACEMENT, LT INDEX JOINT REPLACEMENT, PAIN CLINIC PROCEDURES, COLONOSCOPY, EGD, PFO closure in heart at [facility] 02/2025. Gastric bypass 07-06-23 Past Anesthesia/Blood Transfusion Reactions: Previous Problems w/ Anesthesia, Family History of Problems w/ Anesthesia, Motion Sickness Additional Past Anesthesia/Blood Transfusion Reaction / Comment(s): HARD TO PUT TO SLEEP-(pt and father)-needs more than normal. no hx blood transfusion Past Psychological History: Depression Smoking Status: Never smoker Past Alcohol Use History: Rare Past Drug Use History: Prescription Drug Abuse - Past Family History Sister(s) Family Medical History: Cancer Additional Family Medical History / Comment(s): Skin cancer. Mother History Unknown: Yes General Exam Limitations: no limitations General appearance: alert, in no apparent distress Head exam: Present: atraumatic, normocephalic, normal inspection Eye exam: Present: normal appearance, PERRL, EOMI. Absent: scleral icterus, conjunctival injection, periorbital swelling ENT exam: Present: normal exam, normal oropharynx, mucous membranes moist Neck exam: Present: normal inspection, full ROM. Absent: tenderness, meningismus, lymphadenopathy Respiratory exam: Present: normal lung sounds bilaterally. Absent: respiratory distress, wheezes, rales, rhonchi, stridor Cardiovascular Exam: Present: normal rhythm, tachycardia, normal heart sounds. Absent: systolic murmur, diastolic murmur, rubs, gallop, clicks GI/Abdominal exam: Present: soft, normal bowel sounds. Absent: distended, tenderness, guarding, rebound, rigid Back exam: Present: full ROM. Absent: tenderness Neurological exam: Present: alert, oriented X3, CN II-XII intact, reflexes normal. Absent: motor sensory deficit Skin exam: Present: warm, dry, intact, normal color. Absent: rash Course Vital Signs 04/30/25 12:31 Temperature 98.2 F Pulse Rate 111 H Respiratory 20 Rate Blood Pressure 122/83 O2 Sat by Pulse 99 Oximetry EKG Findings - EKG Comments: EKG Findings:: At 13: 45 sinus rhythm rate 93 IN 141 QRS 104 QT/QTc 354/404 other slight J-point elevation in V2, no other significant acute findings. - EKG Results: EKG: interpreted by FAIZA Medical Decision Making - Medical Decision Making Was pt. sent in by a medical professional or institution (, PA, [employer], urgent care, hospital, or assisted...) When possible be specific @ -No Did you speak to anyone other than the patient for history (EMS, parent, family, police, friend...)? What history was obtained from this source @ -No Did you review nursing and triage notes (agree or disagree)? Why? @ -I reviewed and agree with nursing and triage notes Were old charts reviewed (outside hosp., previous admission, EMS record, old EKG, old radiological studies, urgent care reports/EKG's, assisted records)? Report findings @ -No old charts were reviewed Differential Diagnosis (chest pain, altered mental status, abdominal pain women, abdominal pain men, vaginal bleeding, weakness, fever, dyspnea, syncope, headache, dizziness, GI bleed, back pain, seizure, CVA, palpatations, mental health, musculoskeletal)? @ -[Differential Palpitations Ventricular arrhythmias, atrial arrhythmias, myocardial infarction, anemia, thyrotoxicosis, electrolyte imbalance, hypokalemia, pulmonary embolism, pulmonary disease, drugs, alcohol, anxiety, stress.... This is not meant to be an all-inclusive list. EKG interpreted by me (3pts min.). @ -As above X-rays interpreted by me (1pt min.). @ -[X-ray shows no acute cardiopulmonary process. CT interpreted by me (1pt min.). @ -ET brain showing no acute intracranial hemorrhage, mass effect no acute process. U/S interpreted by me (1pt. min.). @ -None done What testing was considered but not performed or refused? (CT, X-rays, U/S, labs)? Why? @ -None What meds were considered but not given or refused? Why? @ -None Did you discuss the management of the patient with other professionals (idris gonzales i.e. , PA, [employer], lab, RT, psych nurse, social sciences department chair, consultants intern, teacher, chief digital media officer, case assistant)? Give summary @ -No Was smoking cessation discussed for >3mins.? @ -No Was critical care preformed (if so, how long)? @ -No Were there social determinants of health that impacted care today? How? (Homelessness, low income, unemployed, alcoholism, drug addiction, transportation, low edu. Level, literacy, decrease access to med. care, penitentiary, rehab)? @ -No Was there de-escalation of care discussed even if they declined (Discuss DNR or withdrawal of care, Hospice)? DNR status @ -No What co-morbidities impacted this encounter? (DM, HTN, Smoking, COPD, CAD, Cancer, CVA, ARF, Chemo, Hep., AIDS, mental health diagnosis, sleep apnea, morbid obesity)? @ -None Was patient admitted / discharged? Hospital course, mention meds given and route, prescriptions, significant lab abnormalities, going to OR and other pertinent info. @ -Discharge patient feels greatly improved after IV fluids. Patient is currently asymptomatic headache has resolved. Patient had negative imaging clued CT, x-rays and laboratories findings are unremarkable. Patient to closely follow-up with cardiology and he was offered admission but feels comfortable with discharge and follow-up with cardiology. Patient is currently neurologically intact without any neurologic deficits. Undiagnosed new problem with uncertain prognosis? @ -No Drug Therapy requiring intensive monitoring for toxicity (Heparin, Nitro, Insulin, Cardizem)? @ -No Were any procedures done? @ -No Diagnosis/symptom? @ -Palpitations, headache Acute, or Chronic, or Acute on Chronic? @ -Acute Uncomplicated (without systemic symptoms) or Complicated (systemic symptoms)? @ -Uncomplicated Side effects of treatment? @ -No Exacerbation, Progression, or Severe Exacerbation? @ -No Poses a threat to life or bodily function? How? (Chest pain, USA, NH, pneumonia, PE, COPD, DKA, ARF, appy, cholecystitis, CVA, Diverticulitis, Homicidal, Suicidal, threat to staff... and all critical care pts) @ -No - Lab Data Result diagrams: 04/30/25 12:49 04/30/25 12:49 Lab Results 04/30/25 04/30/25 04/30/25 Range/Units 12:49 12:49 12:49 WBC 8.98 (4.50-10.00) 10*3/uL RBC 5.48 (4.40-5.60) 10*6/uL Hgb 15.1 (13.0-17.0) g/dL Hct 45.4 (39.6-50.0) % MCV 82.8 (80.0-97.0) fL MCH 27.6 (27.0-32.0) pg MCHC 33.3 (32.0-37.0) g/dL Plt Count 284 (140-440) 10*3/uL MPV 9.2 L (9.5-12.2) fL Immature Gran % (Auto) 0.2 % Neutrophils % 75.7 % Lymphocytes % 14.9 % Monocytes % 7.5 % Eosinophils % 1.1 % Basophils % 0.6 % Immature Gran # 0.02 (0.00-0.04) 10*3/uL Neutrophils # 6.80 (1.80-7.70) 10*3/uL Lymphocytes # 1.34 (0.90-5.00) 10*3/uL Monocytes # 0.67 (0.20-1.00) 10*3/uL Eosinophils # 0.10 (0.04-0.35) 10*3/uL Basophils # 0.05 (0.00-0.10) 10*3/uL PT 11.1 (10.0-12.5) sec INR 1.0 (<1.2) APTT 24.7 (22.0-30.0) sec Sodium 136 L (137-145) mmol/L Potassium 4.3 (3.5-5.1) mmol/L Chloride 98 (98-107) mmol/L Carbon Dioxide 26 (22-30) mmol/L Anion Gap 12 mmol/L BUN 6 L (9-20) mg/dL Creatinine 0.82 (0.66-1.25) mg/dL Est GFR (CKD-EPI)AfAm >90 (>60 ml/min/1.73 sqM) Est GFR (CKD-EPI)NonAf >90 (>60 ml/min/1.73 sqM) Glucose 93 (74-99) mg/dL Calcium 10.4 H (8.4-10.2) mg/dL Magnesium 1.9 (1.6-2.3) mg/dL Total Bilirubin 1.1 (0.2-1.3) mg/dL AST 22 (17-59) U/L ALT 11 (4-49) U/L Alkaline Phosphatase 83 (38-126) U/L Troponin I (0.000-0.034) ng/mL Total Protein 6.8 (6.3-8.2) g/dL Albumin 4.4 (3.5-5.0) g/dL 04/30/25 Range/Units 12:49 WBC (4.50-10.00) 10*3/uL RBC (4.40-5.60) 10*6/uL Hgb (13.0-17.0) g/dL Hct (39.6-50.0) % MCV (80.0-97.0) fL MCH (27.0-32.0) pg MCHC (32.0-37.0) g/dL Plt Count (140-440) 10*3/uL MPV (9.5-12.2) fL Immature Gran % (Auto) % Neutrophils % % Lymphocytes % % Monocytes % % Eosinophils % % Basophils % % Immature Gran # (0.00-0.04) 10*3/uL Neutrophils # (1.80-7.70) 10*3/uL Lymphocytes # (0.90-5.00) 10*3/uL Monocytes # (0.20-1.00) 10*3/uL Eosinophils # (0.04-0.35) 10*3/uL Basophils # (0.00-0.10) 10*3/uL PT (10.0-12.5) sec INR (<1.2) APTT (22.0-30.0) sec Sodium (137-145) mmol/L Potassium (3.5-5.1) mmol/L Chloride (98-107) mmol/L Carbon Dioxide (22-30) mmol/L Anion Gap mmol/L BUN (9-20) mg/dL Creatinine (0.66-1.25) mg/dL Est GFR (CKD-EPI)AfAm (>60 ml/min/1.73 sqM) Est GFR (CKD-EPI)NonAf (>60 ml/min/1.73 sqM) Glucose (74-99) mg/dL Calcium (8.4-10.2) mg/dL Magnesium (1.6-2.3) mg/dL Total Bilirubin (0.2-1.3) mg/dL AST (17-59) U/L ALT (4-49) U/L Alkaline Phosphatase (38-126) U/L Troponin I <0.012 (0.000-0.034) ng/mL Total Protein (6.3-8.2) g/dL Albumin (3.5-5.0) g/dL Disposition Clinical Impression: Palpitations, Headache Disposition: HOME SELF-CARE Condition: Stable Instructions (If sedation given, give patient instructions): Heart Palpitations (ED) Additional Instructions: Please return to the Emergency Department if symptoms worsen or any other concerns. Is patient prescribed a controlled substance at d/c from ED?: No Referrals: Aden Diaz MD [Primary Care Provider] - 1-2 days Time of Disposition: 15:24
[2025-04-30] MEDS: SODIUM CHLORIDE 0.9% 1,000 ML IV STA (14:12)
[2025-04-30 14:13] LABS: Basophils # (A) 0.05 10*3/uL (0.00-0.10); Basophils % (A) 0.6 %; Eosinophils % (A) 1.1 %; HCT 45.4 % (39.6-50.0); HGB 15.1 g/dL (13.0-17.0); Lymphocytes # (A) 1.34 10*3/uL (0.90-5.00); Lymphocytes % (A) 14.9 %; MCH 27.6 pg (27.0-32.0); MCHC 33.3 g/dL (32.0-37.0); MCV 82.8 fL (80.0-97.0); Mean Platelet Volume 9.2 fL (9.5-12.2); Monocytes # (A) 0.67 10*3/uL (0.20-1.00); Monocytes % (A) 7.5 %; Neutrophils % (A) 75.7 %; Platelet Count 284 10*3/uL (140-440); RBC 5.48 10*6/uL (4.40-5.60); RDW 13.4 % (11.5-14.5); WBC 8.98 10*3/uL (4.50-10.00)
[2025-04-30 14:24] LABS: Partial Thromboplastin Time 24.7 sec (22.0-30.0); Prothrombin Time 11.1 sec (10.0-12.5)
[2025-04-30 14:35] LABS: Carbon Dioxide 26 mmol/L (22-30); Chloride 98 mmol/L (98-107); Glucose 93 mg/dL (74-99); Potassium 4.3 mmol/L (3.5-5.1); Sodium 136 mmol/L (137-145)
[2025-04-30 14:36] LABS: ALT 11 U/L (4-49); AST 22 U/L (17-59); African American GFR (CKD) >90 (>60 ml/min/1.73 sqM); Albumin 4.4 g/dL (3.5-5.0); Alkaline Phosphatase 83 U/L (38-126); Anion Gap 12 mmol/L; Blood Urea Nitrogen 6 mg/dL (9-20); Calcium 10.4 mg/dL (8.4-10.2); Magnesium 1.9 mg/dL (1.6-2.3); Non-African American GFR(CKD) >90 (>60 ml/min/1.73 sqM); Total Bilirubin 1.1 mg/dL (0.2-1.3); Total Protein 6.8 g/dL (6.3-8.2)
[2025-04-30] MEDS: HYDROmorphone 0.5 MG/0.5 ML SYRINGE IVP STA (14:51)
[2025-04-30 16:20] VITALS: BP 121/83; PULSE 94; RESP 17
== END 2025-04-30 16:00 | disposition home or self-care (01) ==
LOC: EC 12:07
DX: R00.2 Palpitations (principal); R51.9 Headache, unspecified; Z86.73 Personal history of transient ischemic attack (TIA), and cerebral infarction without residual deficits
CPT/HCPCS: 36415; 93005; 80053; 83735; 84484; 85025; 85610; 85730; 71046; 70450; 99285; 96374; 96361; J1171

== ENCOUNTER 2025-05-04 16:41 | Observation (INO) | payer OTHER ==
--- NOTE | 2025-05-04 18:14 | ED ---
Dizziness HPI - General Source: patient, RN notes reviewed Mode of arrival: ambulatory Limitations: no limitations <Amita Adams - Last Filed: 05/04/25 18:12> - General Source: patient, RN notes reviewed, old records reviewed <Jose L Mccabe - Last Filed: 05/05/25 02:32> - General Chief Complaint: Dizziness Stated Complaint: Light headed, body tingling Time Seen by Provider: 05/04/25 18:12 - History of Present Illness Initial Comments: Quick [id number] male presenting for lightheadedness x 1 week. States he has been experiencing lightheadedness and syncope when he stands up from sitting. He was seen for this several days ago and discharged with a negative workup. He started to experience chest pain 6 hours ago. [facility] who sent him here for further evaluation. He does have a history of atrial fibrillation, CVA, hypertension, and previous MIs. He is on Eliquis. (Amita Adams) Patient originally seen as a quick note. Is a 45-year-old male who presents em ergency department complaining of what sounds like orthostatic hypotension and syncopal episodes. Is been ongoing for few weeks. States that is when he is standing from a sitting position. Gets lightheaded and passes out. No obvious injuries. States he was seen here several days ago for similar complaints and discharged with a negative workup. He saw his houseman today who recommended coming to the ER for further evaluation. Has been having intermittent chest pain as well. Last 6 hours ago. Denies any current chest pain. Is on blood thinners. Has a mild headache. History of prior MIs, hypertension, CVA, A-fib. Presents for further evaluation at this time. (Slade canales,Jose L) - Related Data Home Medications Medication Instructions Recorded Confirmed Omeprazole 40 mg PO DAILY 07/10/23 03/29/25 Cyclobenzaprine HCl 10 mg PO TID PRN 11/18/23 03/29/25 Valsartan 320 mg PO DAILY 11/18/23 03/29/25 clonazePAM [KlonoPIN] 1 mg PO DAILY 01/16/24 03/29/25 Apixaban [Eliquis] 5 mg PO BID 06/03/24 03/29/25 Tamsulosin HCl [Flomax] 0.4 mg PO DAILY 11/17/24 03/29/25 oxyCODONE-APAP 10-325MG [Percocet 1 tab PO Q4-6H PRN 11/17/24 03/29/25 10-325 mg] clonazePAM [KlonoPIN] 4 mg PO HS 12/03/24 03/29/25 Atorvastatin [Lipitor] 40 mg PO HS 03/17/25 03/29/25 Famotidine [Pepcid] 20 mg PO DAILY 03/17/25 03/29/25 Metoprolol Tartrate [Lopressor] 25 mg PO BID 03/17/25 03/29/25 Zinc Gluconate [Zinc] 50 mg PO DAILY 03/17/25 03/29/25 hydroCHLOROthiazide [Hydrodiuril] 25 mg PO DAILY 03/17/25 03/29/25 Previous Rx's Medication Instructions Recorded Docusate [Colace] 100 mg PO BID #60 capsule 07/27/24 Folic Acid 1 mg PO DAILY #60 tablet 11/19/24 Clopidogrel [Plavix] 75 mg PO DAILY 30 Days #30 tablet 12/06/24 Nystatin 100,000 Unit/gm Powd 1 applic TOPICAL BID #60 gm 01/18/25 [Mycostatin Powder] Meclizine [Antivert] 25 mg PO TID #30 tab 03/25/25 Allergies Allergy/AdvReac Type Severity Reaction Status Date / Time No Known Allergies Allergy Verified 04/30/25 12:34 Review of Systems ROS Other: All systems not noted in ROS Statement are negative. <Amita Adams - Last Filed: 05/04/25 18:12> ROS Other: All systems not noted in ROS Statement are negative. <Jose L Mccabe - Last Filed: 05/05/25 02:32> ROS Statement: Those systems with pertinent positive or pertinent negative responses have been documented in the HPI. Review of Systems: CONST: Denies fever EYES: Denies blurry vision ENT: Denies nasal congestion C/V: Denies Chest pain RESP: Denies shortness of breath GI: Denies abdominal pain : Denies dysuria SKIN: Denies rash. MSK: Denies joint pain. NEURO: Endorses mild headache (Jose L Mccabe) Past Medical History Past Medical History: Atrial Fibrillation, Blood Disorder, CVA/TIA, Deep Vein Thrombosis (DVT), GERD/Reflux, Hearing Disorder / Deafness, Hypertension, Myocardial Infarction (DE), Osteoarthritis (OA), Sleep Apnea/CPAP/BIPAP Additional Past Medical History / Comment(s): DVT X 3- LAST TIME 2012- LT LEG, LUMBAR DDD- . HAS HX MTHFR GENE MUTATION-POSITIVE FOR HETEROZYGOUS PER DR. FRANCISCO'S OFFICE, doesn't not use CPAP, occasional swelling left lower leg, Pt states he had a stroke-September of 2024- left eye vision issues, speech slurring-going to speech therapy. PFO being seen by cardiology in [facility]. Last Myocardial Infarction Date:: 09/2021 History of Any Multi-Drug Resistant Organisms: None Reported Past Surgical History: Bariatric Surgery, Cardiac Ablation, Cholecystectomy, Heart Catheterization, Joint Replacement Additional Past Surgical History / Comment(s): LEFT KNEE REPLACEMENT, LT INDEX JOINT REPLACEMENT, PAIN CLINIC PROCEDURES, COLONOSCOPY, EGD, PFO closure in heart at [facility] 02/2025. Gastric bypass 07-06-23 Past Anesthesia/Blood Transfusion Reactions: Previous Problems w/ Anesthesia, Family History of Problems w/ Anesthesia, Motion Sickness Additional Past Anesthesia/Blood Transfusion Reaction / Comment(s): HARD TO PUT TO SLEEP-(pt and father)-needs more than normal. no hx blood transfusion Past Psychological History: Depression Smoking Status: Never smoker Past Alcohol Use History: Rare Past Drug Use History: Prescription Drug Abuse - Past Family History Sister(s) Family Medical History: Cancer Additional Family Medical History / Comment(s): Skin cancer. Mother History Unknown: Yes <Amita Adams - Last Filed: 05/04/25 18:12> General Exam Limitations: no limitations <Amita Adams - Last Filed: 05/04/25 18:12> <Jose L Mccabe - Last Filed: 05/05/25 02:32> - General Exam Comments Initial Comments: Visual Physical Exam Vital signs reviewed General: Well-appearing, nontoxic, no acute distress. Head: Normocephalic, atraumatic Eyes: PERRLA, EOMI ENT: Airway patent Chest: Nonlabored breathing Skin: No visual rash, normal skin tone Neuro: Alert and oriented 3 Musculoskeletal: No gross abnormalities (Amita Adams) General: Appears in no acute distress. HEAD: Normal with no signs of head trauma. EYES: EOMI ENT: Hearing grossly intact, normal oropharynx. RESPIRATORY: Clear breath sounds bilaterally. No wheezes, rales, or rhonchi. C/V: Regular rate and rhythm. S1 and S2 auscultated, no edema, peripheral pulses 2+ and intact throughout ABD: Abd is soft, nontender, nondistended EXT: Normal range of motion, no obvious deformity SKIN: No rashes or lesions observed on exposed skin. NEURO: Alert and oriented x 4. No focal deficits. (Jose L Mccabe) Course Vital Signs 05/04/25 05/04/25 05/04/25 16:50 22:14 22:44 Temperature 98.2 F 98.2 F Pulse Rate 109 H 89 90 Pulse Rate [ Sitting Lead Warehouse Associate] Pulse Rate [ Standing Lead Warehouse Associate ] Pulse Rate [ Supine Lead Warehouse Associate] Respiratory 15 20 18 Rate Blood Pressure 105/72 114/72 100/68 Blood Pressure [Left Arm Sitting] Blood Pressure [Left Arm Standing] Blood Pressure [Left Arm Supine] O2 Sat by Pulse 100 100 97 Oximetry 05/04/25 05/04/25 05/05/25 23:00 23:20 00:27 Temperature Pulse Rate 86 85 Pulse Rate [ 112 H Sitting Lead Warehouse Associate] Pulse Rate [ 109 H Standing Lead Warehouse Associate ] Pulse Rate [ 84 Supine Lead Warehouse Associate] Respiratory 18 18 Rate Blood Pressure 114/72 101/67 Blood Pressure 87/73 [Left Arm Sitting] Blood Pressure 79/67 [Left Arm Standing] Blood Pressure 105/68 [Left Arm Supine] O2 Sat by Pulse 98 97 Oximetry 05/05/25 01:00 Temperature 97.6 F Pulse Rate 79 Pulse Rate [ Sitting Lead Warehouse Associate] Pulse Rate [ Standing Lead Warehouse Associate ] Pulse Rate [ Supine Lead Warehouse Associate] Respiratory 16 Rate Blood Pressure 111/69 Blood Pressure [Left Arm Sitting] Blood Pressure [Left Arm Standing] Blood Pressure [Left Arm Supine] O2 Sat by Pulse 97 Oximetry Medical Decision Making <Amita Adams - Last Filed: 05/04/25 18:12> - Lab Data Result diagrams: 05/04/25 18:29 05/04/25 18:29 - EKG Data -: EKG Interpreted by Me <Jose L Mccabe - Last Filed: 05/05/25 02:32> - Medical Decision Making I completed the quick note portion of this chart signed Amita Adams PA-C (Amita Adams) Was pt. sent in by a medical professional or institution (, PA, PEDIATRIC CARDIOLOGIST, urgent care, hospital, or penitentiary...) When possible be specific @ -No Did you speak to anyone other than the patient for history (EMS, parent, family, police, friend...)? What history was obtained from this source @ -No Did you review nursing and triage notes (agree or disagree)? Why? @ -I reviewed and agree with nursing and triage notes Were old charts reviewed (outside hosp., previous admission, EMS record, old EKG, old radiological studies, urgent care reports/EKG's, penitentiary records)? Report findings @ -Reviewed EKG from April 30, 2025. No significant change on EKG. Differential Diagnosis (chest pain, altered mental status, abdominal pain women, abdominal pain men, vaginal bleeding, weakness, fever, dyspnea, syncope, headache, dizziness, GI bleed, back pain, seizure, CVA, palpatations, mental health, musculoskeletal)? @ -Differential Syncope: Valvular disease, hypertrophic cardiomyopathy, pulmonary embolism, tamponade, tachycardia, bradycardia, DE, hypovolemia, hemorrhage, dissection, anemia, intracranial hemorrhage, seizure, hypoglycemia, carbon monoxide poisoning, this is not meant to be an all-inclusive list. EKG interpreted by me (3pts min.). @ -As above X-rays interpreted by me (1pt min.). @ -Chest x-ray shows no obvious acute cardiopulmonary process. CT interpreted by me (1pt min.). @ -CT brain reveals no obvious acute intracranial process. U/S interpreted by me (1pt. min.). @ -None done What testing was considered but not performed or refused? (CT, X-rays, U/S, labs)? Why? @ -None What meds were considered but not given or refused? Why? @ -None Did you discuss the management of the patient with other professionals (professionals i.e. , KHA[facility], PEDIATRIC CARDIOLOGIST, lab, RT, psych nurse, social media marketing specialist, motor vehicle escort driver, teacher, airfield engineer officer, human services case manager)? Give summary @ -I spoke with the admitting provider, Dr. Luo who accepted the admission. Was smoking cessation discussed for >3mins.? @ -No Was critical care preformed (if so, how long)? @ -No Were there social determinants of health that impacted care today? How? (Homelessness, low income, unemployed, alcoholism, drug addiction, heredia sportation, low edu. Level, literacy, decrease access to med. care, residential, rehab)? @ -No Was there de-escalation of care discussed even if they declined (Discuss DNR or withdrawal of care, Hospice)? DNR status @ -No What co-morbidities impacted this encounter? (DM, HTN, Smoking, COPD, CAD, Cancer, CVA, ARF, Chemo, Hep., AIDS, mental health diagnosis, sleep apnea, morbid obesity)? @ -None Was patient admitted / discharged? Hospital course, mention meds given and route, prescriptions, significant lab abnormalities, going to OR and other pertinent info. @ -Based on patient's presentation physical exam, presents to the emergency department complaining of multiple complaints. Chest pain as well as syncopal episodes. Seems to orthostatic syncope in nature. Vitals currently within acceptable limits but we will provide migraine cocktail as well as IV fluids. Patient was in agreement this plan. Originally seen as a quick note. Workup completed so far shows undetectable troponin. Added on D-dimer within normal limits. CT brain was obtained which showed no obvious acute intracranial process. Chest x-ray unremarkable. EKG unremarkable. Orthostatic vital signs are positive. I discussed results with the patient. He will be admitted at this time. He was in agreement this plan. Cardiology will be consulted. Echo ordered. I spoke with the admitting provider, Dr. Luo who accepted the admission. Undiagnosed new problem with uncertain prognosis? @ -No Drug Therapy requiring intensive monitoring for toxicity (Heparin, Nitro, Insulin, Cardizem)? @ -No Were any procedures done? @ -No Diagnosis/symptom? @ -Syncope, orthostatic hypotension, chest pain Acute, or Chronic, or Acute on Chronic? @ -Acute Uncomplicated (without systemic symptoms) or Complicated (systemic symptoms)? @ -Complicated Side effects of treatment? @ -No Exacerbation, Progression, or Severe Exacerbation? @ -No Poses a threat to life or bodily function? How? (Chest pain, USA, DE, pneumonia, PE, COPD, DKA, ARF, appy, cholecystitis, CVA, Diverticulitis, Homicidal, Suicidal, threat to staff... and all critical care pts) @ -Possibly, yes (Jose L Mccabe) - Lab Data Lab Results 06/26/25 06/26/25 06/26/25 Range/Units 18:29 18:29 18:29 WBC 9.60 (4.50-10.00) 10*3/uL RBC 5.92 H (4.40-5.60) 10*6/uL Hgb 16.6 (13.0-17.0) g/dL Hct 50.1 H (39.6-50.0) % MCV 84.6 (80.0-97.0) fL MCH 28.0 (27.0-32.0) pg MCHC 33.1 (32.0-37.0) g/dL Plt Count 286 (140-440) 10*3/uL MPV 11.1 (9.5-12.2) fL Immature Gran % (Auto) 0.3 % Neutrophils % 70.9 % Lymphocytes % 19.4 % Monocytes % 7.9 % Eosinophils % 0.7 % Basophils % 0.8 % Immature Gran # 0.03 (0.00-0.04) 10*3/uL Neutrophils # 6.80 (1.80-7.70) 10*3/uL Lymphocytes # 1.86 (0.90-5.00) 10*3/uL Monocytes # 0.76 (0.20-1.00) 10*3/uL Eosinophils # 0.07 (0.04-0.35) 10*3/uL Basophils # 0.08 (0.00-0.10) 10*3/uL Manual Slide Review Performed RBC Morphology Normal PT (10.0-12.5) sec INR (<1.2) APTT (22.0-30.0) sec D-Dimer (<0.60) mg/L FEU Sodium 136 L (137-145) mmol/L Potassium 4.4 (3.5-5.1) mmol/L Chloride 98 (98-107) mmol/L Carbon Dioxide 26 (22-30) mmol/L Anion Gap 12 mmol/L BUN 14 (9-20) mg/dL Creatinine 1.18 (0.66-1.25) mg/dL Est GFR (CKD-EPI)AfAm 85 (>60 ml/min/1.73 sqM) Est GFR (CKD-EPI)NonAf 74 (>60 ml/min/1.73 sqM) Glucose 104 H (74-99) mg/dL Calcium 10.4 H (8.4-10.2) mg/dL Magnesium 2.2 (1.6-2.3) mg/dL Total Bilirubin 1.0 (0.2-1.3) mg/dL AST 29 (17-59) U/L ALT 18 (4-49) U/L Alkaline Phosphatase 98 (38-126) U/L Troponin I <0.012 (0.000-0.034) ng/mL Total Protein 7.8 (6.3-8.2) g/dL Albumin 5.1 H (3.5-5.0) g/dL 05/04/25 05/04/25 Range/Units 19:58 22:27 WBC (4.50-10.00) 10*3/uL RBC (4.40-5.60) 10*6/uL Hgb (13.0-17.0) g/dL Hct (39.6-50.0) % MCV (80.0-97.0) fL MCH (27.0-32.0) pg MCHC (32.0-37.0) g/dL Plt Count (140-440) 10*3/uL MPV (9.5-12.2) fL Immature Gran % (Auto) % Neutrophils % % Lymphocytes % % Monocytes % % Eosinophils % % Basophils % % Immature Gran # (0.00-0.04) 10*3/uL Neutrophils # (1.80-7.70) 10*3/uL Lymphocytes # (0.90-5.00) 10*3/uL Monocytes # (0.20-1.00) 10*3/uL Eosinophils # (0.04-0.35) 10*3/uL Basophils # (0.00-0.10) 10*3/uL Manual Slide Review RBC Morphology PT 10.7 (10.0-12.5) sec INR 1.0 (<1.2) APTT 24.4 (22.0-30.0) sec D-Dimer 0.33 (<0.60) mg/L FEU Sodium (137-145) mmol/L Potassium (3.5-5.1) mmol/L Chloride (98-107) mmol/L Carbon Dioxide (22-30) mmol/L Anion Gap mmol/L BUN (9-20) mg/dL Creatinine (0.66-1.25) mg/dL Est GFR (CKD-EPI)AfAm (>60 ml/min/1.73 sqM) Est GFR (CKD-EPI)NonAf (>60 ml/min/1.73 sqM) Glucose (74-99) mg/dL Calcium (8.4-10.2) mg/dL Magnesium (1.6-2.3) mg/dL Total Bilirubin (0.2-1.3) mg/dL AST (17-59) U/L ALT (4-49) U/L Alkaline Phosphatase (38-126) U/L Troponin I (0.000-0.034) ng/mL Total Protein (6.3-8.2) g/dL Albumin (3.5-5.0) g/dL - EKG Data EKG Comments: 12-lead Electrocardiogram Interpretation Note EKG was reviewed and interpreted by myself. 12-lead ECG performed at 1701 is interpreted by me as revealing atrial fibrillation at a rate of 113 beats per minute. Indeterminate axis. QRS duration is 109 ms, QTc is 372 ms.. There were no ST or T wave abnormalities to suggest myocardial ischemia or injury. R wave progression across the precordium was satisfactory. By my interpretation this EKG is non-diagnostic for acute ischemia. (Jose L Mccabe) Disposition <Amita Adams - Last Filed: 05/04/25 18:12> Time of Disposition: 00:40 <Jose L Mccabe - Last Filed: 05/05/25 02:32> Clinical Impression: Syncope, Orthostatic hypotension, Chest pain Disposition: ADMITTED IP TO THIS HOSP Condition: Stable
[2025-05-04 18:40] LABS: Basophils # (A) 0.08 10*3/uL (0.00-0.10); Basophils % (A) 0.8 %; Eosinophils # (A) 0.07 10*3/uL (0.04-0.35); Eosinophils % (A) 0.7 %; HCT 50.1 % (39.6-50.0); HGB 16.6 g/dL (13.0-17.0); Lymphocytes # (A) 1.86 10*3/uL (0.90-5.00); Lymphocytes % (A) 19.4 %; MCHC 33.1 g/dL (32.0-37.0); MCV 84.6 fL (80.0-97.0); Mean Platelet Volume 11.1 fL (9.5-12.2); Monocytes # (A) 0.76 10*3/uL (0.20-1.00); Monocytes % (A) 7.9 %; Neutrophils % (A) 70.9 %; RBC 5.92 10*6/uL (4.40-5.60); RDW 13.2 % (11.5-14.5)
[2025-05-04 18:52] LABS: ALT 18 U/L (4-49); AST 29 U/L (17-59); African American GFR (CKD) 85 (>60 ml/min/1.73 sqM); Albumin 5.1 g/dL (3.5-5.0); Alkaline Phosphatase 98 U/L (38-126); Anion Gap 12 mmol/L; Blood Urea Nitrogen 14 mg/dL (9-20); Calcium 10.4 mg/dL (8.4-10.2); Carbon Dioxide 26 mmol/L (22-30); Chloride 98 mmol/L (98-107); Glucose 104 mg/dL (74-99); Magnesium 2.2 mg/dL (1.6-2.3); Non-African American GFR(CKD) 74 (>60 ml/min/1.73 sqM); Potassium 4.4 mmol/L (3.5-5.1); Sodium 136 mmol/L (137-145); Total Protein 7.8 g/dL (6.3-8.2)
[2025-05-04 19:43] LABS: RBC Morphology Normal
[2025-05-04 19:47] LABS: Platelet Count 286 10*3/uL (140-440)
--- NOTE | 2025-05-04 20:13 | XR ---
EXAMINATION TYPE: XR chest 2V DATE OF EXAM: 05/04/2025 8:02 PM CLINICAL INDICATION:Male, 45 years old with history of Chest pain; [facility] COMPARISON: Chest radiograph 04/30/2025 TECHNIQUE: XR chest 2V Frontal view of the chest. FINDINGS: Lungs/Pleura: There is no evidence of pleural effusion, focal consolidation, or pneumothorax. Pulmonary vascularity: Unremarkable. Heart/mediastinum: Cardiomediastinal silhouette is unremarkable. Musculoskeletal: No acute osseous pathology. IMPRESSION: No acute cardiopulmonary disease/process. [facility], , 05/04/2025 8:10 PM
[2025-05-04 20:27] LABS: Partial Thromboplastin Time 24.4 sec (22.0-30.0); Prothrombin Time 10.7 sec (10.0-12.5)
[2025-05-04] MEDS: diphenhydrAMINE 50 MG/ML 1 ML VIAL IVP STA (22:41)
[2025-05-04] MEDS: ONDANSETRON 4 MG/2 ML VIAL IVP STA (22:41)
[2025-05-04] MEDS: ACETAMINOPHEN TAB 500 MG TAB PO STA (22:41)
[2025-05-04] MEDS: METOPROLOL TARTRATE 25 MG TAB PO STA (22:53)
[2025-05-04] MEDS: SODIUM CHLORIDE 0.9% 1,000 ML IV ONE (23:19)
--- NOTE | 2025-05-05 00:03 | CT ---
EXAMINATION TYPE: CT brain wo con CT DLP: 1156.4 mGycm, Automated exposure control for dose reduction was used. DATE OF EXAM: 05/04/2025 11:45 PM COMPARISON: CT brain 04/30/2025, 03/25/2025 CLINICAL INDICATION:Male, 45 years old with history of headache, TECHNIQUE: Brain: Multiple axial CT images of the brain were obtained without IV contrast. . Coronal and sagitta l reformats reviewed. FINDINGS: Brain: Extra-axial spaces: No abnormal extra-axial fluid collections. Ventricular system: Within normal limits Cerebral parenchyma: No acute intraparenchymal hemorrhage or mass effect. The martin-white junction is well differentiated. Cerebellum: Unremarkable. Mass effect: No evidence of midline shift. Intracranial vasculature: unremarkable Soft tissues: Normal. Calvarium/osseous structures: No depressed skull fracture. Paranasal sinuses and mastoid air cells: The mastoid air cells are clear. Minimal mucosal thickening of the inferior left maxillary sinus. The remaining paranasal sinuses are clear. Visualized orbits: Orbital contents are intact. IMPRESSION: No acute intracranial process. [facility], , 05/05/2025 12:01 AM
[2025-05-05] MEDS: HYDROmorphone 0.5 MG/0.5 ML SYRINGE IVP STA (00:29)
[2025-05-05] MEDS: SODIUM CHLORIDE 0.9% 1,000 ML IV ONE (00:31)
[2025-05-05] MEDS: ASPIRIN 81 MG PO STA (00:31)
[2025-05-05] MEDS: SODIUM CHLORIDE 0.9% 1,000 ML IV STA (00:32)
[2025-05-05] MEDS ORDERED: ONDANSETRON 4 MG/2 ML VIAL IVP PRN (00:45)
[2025-05-05] MEDS ORDERED: ACETAMINOPHEN TAB 325 MG TAB PO PRN (00:45)
[2025-05-05] MEDS ORDERED: NALOXONE 0.4 MG/ML 1 ML VIAL IV PRN (00:45)
[2025-05-05] MEDS: HYDROmorphone 0.5 MG/0.5 ML SYRINGE IVP PRN (04:47)
--- NOTE | 2025-05-05 09:12 | P.HPIM ---
History of Present Illness H&P Date: 05/05/25 Chief Complaint: Chest pain, dizziness when standing up, and passing out 45-year-old male with paroxysmal A-fib, on Eliquis congestive heart failure He presents with chest pain and dizziness when standing up, which started 2-3 weeks ago and has worsened over the last few days. The patient reports passing out 3 times yesterday when standing up. He experienced a racing heartbeat yesterday. The dizziness occurs when transitioning from sitting to standing. Blood pressure drops have been noted when standing. The patient denies any bleeding or current illness. He reports feeling weak when the symptoms occur. There has been no changes in his medications recently The patient denies smoking, drug use, or heavy alcohol consumption. He reports not currently working due to other health issues. review of systems Pertinent positives as noted in HPI. All other systems were reviewed and are negative Cardiovascular: Positive for chest pain, dizziness upon standing, and recent episode of tachycardia. Negative for shortness of breath. Neurological: Positive for syncope (passed out 3 times yesterday). Constitutional: Positive for weakness associated with symptoms. on exam Constitutional: No acute distress, conversant, pleasant Eyes: Anicteric sclerae, moist conjunctiva, Pupils equal round reactive to light ENMT: NC/AT Oropharynx clear, no erythema, or exudates Neck: Supple, no masses, or JVD No carotid bruits No thyromegaly Lungs: Clear to auscultation Clear to percussion Normal respiratory effort, no accessory muscle use Cardiovascular: Heart irregular in rate and rhythm, No murmurs, gallops, or rubs No peripheral edema Abdominal: Soft Nontender, no guarding, rebound or rigidity Abdomen moving with respiration Normoactive bowel sounds Extremities: No digital cyanosis No clubbing Pedal pulses intact and symmetrical Radial pulses intact and symmetrical No calf tenderness Psychiatric: Alert and oriented to person, place and time Appropriate affect fair judgement Neuro Muscles Strength 5/5 in all 4 extremities Sensation to light touch grossly present throughout Cranial nerves II-XII grossly intact Past Medical History Past Medical History: Atrial Fibrillation, Blood Disorder, CVA/TIA, Deep Vein Thrombosis (DVT), GERD/Reflux, Hearing Disorder / Deafness, Hypertension, Myocardial Infarction ([place]), Osteoarthritis (OA), Sleep Apnea/CPAP/BIPAP Additional Past Medical History / Comment(s): DVT X 3- LAST TIME 2012- LT LEG, LUMBAR DDD- . HAS HX MTHFR GENE MUTATION-POSITIVE FOR HETEROZYGOUS PER DR. FRANCISCO'S OFFICE, doesn't not use CPAP, occasional swelling left lower leg, Pt states he had a stroke-September of 2024- left eye vision issues, speech slurring-going to speech therapy. PFO being seen by cardiology in [facility]. Last Myocardial Infarction Date:: 09/2021 History of Any Multi-Drug Resistant Organisms: None Reported Past Surgical History: Bariatric Surgery, Cardiac Ablation, Cholecystectomy, Heart Catheterization, Joint Replacement Additional Past Surgical History / Comment(s): LEFT KNEE REPLACEMENT, LT INDEX JOINT REPLACEMENT, PAIN CLINIC PROCEDURES, COLONOSCOPY, EGD, PFO closure in heart at [facility] 02/2025. Gastric bypass 07-06-23 Past Anesthesia/Blood Transfusion Reactions: Previous Problems w/ Anesthesia, Family History of Problems w/ Anesthesia, Motion Sickness Additional Past Anesthesia/Blood Transfusion Reaction / Comment(s): HARD TO PUT TO SLEEP-(pt and father)-needs more than normal. no hx blood transfusion Past Psychological History: Depression Smoking Status: Never smoker Past Alcohol Use History: Rare Past Drug Use History: Prescription Drug Abuse - Past Family History Sister(s) Family Medical History: Cancer Additional Family Medical History / Comment(s): Skin cancer. Mother History Unknown: Yes Medications and Allergies Home Medications Medication Instructions Recorded Confirmed Type Omeprazole 40 mg PO DAILY 07/10/23 03/29/25 History Cyclobenzaprine HCl 10 mg PO TID PRN 11/18/23 03/29/25 History Valsartan 320 mg PO DAILY 11/18/23 03/29/25 History clonazePAM [KlonoPIN] 1 mg PO DAILY 01/16/24 03/29/25 History Apixaban [Eliquis] 5 mg PO BID 06/03/24 03/29/25 History Docusate [Colace] 100 mg PO BID #60 capsule 07/27/24 03/29/25 Rx Tamsulosin HCl [Flomax] 0.4 mg PO DAILY 11/17/24 03/29/25 History oxyCODONE-APAP 10-325MG [Percocet 1 tab PO Q4-6H PRN 11/17/24 03/29/25 History 10-325 mg] Folic Acid 1 mg PO DAILY #60 tablet 11/19/24 03/29/25 Rx clonazePAM [KlonoPIN] 4 mg PO HS 12/03/24 03/29/25 History Clopidogrel [Plavix] 75 mg PO DAILY 30 Days #30 tablet 12/06/24 03/29/25 Rx Nystatin 100,000 Unit/gm Powd 1 applic TOPICAL BID #60 gm 01/18/25 03/29/25 Rx [Mycostatin Powder] Atorvastatin [Lipitor] 40 mg PO HS 03/17/25 03/29/25 History Famotidine [Pepcid] 20 mg PO DAILY 03/17/25 03/29/25 History Metoprolol Tartrate [Lopressor] 25 mg PO BID 03/17/25 03/29/25 History Zinc Gluconate [Zinc] 50 mg PO DAILY 03/17/25 03/29/25 History hydroCHLOROthiazide [Hydrodiuril] 25 mg PO DAILY 03/17/25 03/29/25 History Meclizine [Antivert] 25 mg PO TID #30 tab 03/25/25 03/29/25 Rx Allergies Allergy/AdvReac Type Severity Reaction Status Date / Time No Known Allergies Allergy Verified 04/30/25 12:34 Physical Exam Vitals: Vital Signs Temp Pulse Pulse Pulse Pulse Resp BP 05/05/25 07:46 98.2 F 82 16 117/79 05/05/25 07:00 81 05/05/25 05:00 77 104/67 05/05/25 04:00 79 16 97/61 05/05/25 03:00 77 105/64 05/05/25 02:00 80 16 102/63 05/05/25 01:00 97.6 F 79 16 111/69 05/05/25 00:27 85 18 101/67 05/04/25 23:20 112 H 109 H 84 05/04/25 23:00 86 18 114/72 05/04/25 22:44 90 18 100/68 05/04/25 22:14 98.2 F 89 20 114/72 05/04/25 16:50 98.2 F 109 H 15 105/72 BP BP BP Pulse Ox 05/05/25 07:46 98 05/05/25 07:00 104/64 05/05/25 05:00 95 05/05/25 04:00 98 05/05/25 03:00 96 05/05/25 02:00 97 06/27/25 01:00 97 05/05/25 00:27 97 05/04/25 23:20 87/73 79/67 105/68 05/04/25 23:00 98 05/04/25 22:44 97 05/04/25 22:14 100 05/04/25 16:50 100 Intake and Output 05/04/25 05/05/25 05/05/25 22:59 06:59 14:59 Other: Weight 117.934 kg Results CBC & Chem 7: 05/04/25 18:29 05/04/25 18:29 Labs: Abnormal Lab Results - Last 24 Hours (Table) 05/04/25 05/04/25 Range/Units 18:29 18:29 RBC 5.92 H (4.40-5.60) 10*6/uL Hct 50.1 H (39.6-50.0) % Sodium 136 L (137-145) mmol/L Glucose 104 H (74-99) mg/dL Calcium 10.4 H (8.4-10.2) mg/dL Albumin 5.1 H (3.5-5.0) g/dL Assessment and Plan Assessment: 45-year-old male with A-fib on Eliquis congestive heart failure presenting with postural dizziness and hypotension I discussed case with ED doctor and accepted the admission to rule out underlying cardiac events with anticipated length of stay less than 2 midnights Assessment: 1. Orthostatic hypotension with syncope, likely related to underlying cardiovascular conditions 2. Atrial fibrillation, pre-existing on Eliquis 3. Congestive heart failure, pre-existing, compensated 4. Mild hypercalcemia 10.4 continue to monitor Differential Diagnosis: 1. Medication side effect 2. Dehydration 3. Autonomic dysfunction 4. Cardiac arrhythmia exacerbation Plan: 1. Cardiology consultation to evaluate current symptoms in context of known AFib and CHF 2. Review and potential adjustment of current medications, particularly anticoagulation therapy 3. Consider 24-hour Holter monitor to assess for arrhythmias 4. Educate patient on orthostatic hypotension management techniques (e.g., slow position changes, adequate hydration) 5. Follow-up appointment to review test results and specialist recommendations 6. Instruct patient to seek immediate medical attention if syncope recurs or symptoms worsen IV fluid hydration normal saline status post 2 L continue with 130 cc/h hold diuretics for now Verify home medications Continue with Eliquis and metoprolol Hold valsartan and diuretics CT of the brain no acute intracranial process Chest x-ray no acute cardiopulmonary process EKG shows A-fib no acute ST changes Blood work overall unremarkable showing white count of 9.6 hemoglobin 16.6 D-dimer is unremarkable 0.33 Sodium 136 potassium 4.4 BUN 14 creatinine 1.1 unremarkable Troponins negative x 2 Orthostatic vital signs are positive with a drop in systolic blood pressure more than 20 points
[2025-05-05] MEDS: METOPROLOL TARTRATE 25 MG TAB PO SCH (10:16)
[2025-05-05] MEDS: APIXABAN 5 MG TAB PO SCH (10:16)
[2025-05-05] MEDS ORDERED: VALSARTAN 40 MG TAB PO SCH (13:15)
--- NOTE | 2025-05-05 14:51 | P.DS ---
Providers Date of admission: 05/05/25 00:45 Expected date of discharge: 05/05/25 Attending physician: Ofe Luo MD Consults: 05/05/25 00:45 Consult Physician Routine Consulting Provider: [facility] Consult Reason/Comments: chest pain, orthostatic hypotension, syncope Do you want consulting provider notified?: Yes Primary care physician: Aden Diaz MD Hospital Course: 45 year old M with PMH AFib and CHF unknown EF presents to the ED for positional lightheadedness. In the ED he underwent extensive evaluation. BP 105/72, HR 109, RR 15, T 98.2F, 100% on RA. CBC, Coag panel, CMP significant for RBC 5.92, Hct 50.1, Na 136, glu 104, Ca 10.4, alb 5.1. Trop < 0.012 x 3 with EKG showing A-Flutter rate of 113. D-Dimer 0.33. CXR and CT brain negative. Orthostats positive. Patient was admitted for Cardiology evaluation. Valsartan and HCTZ held. Dizziness improved. 05/05 Patient was seen and examined. Reports no lightheadedness. Apparently lost > 100 lbs over the past year. Discussed with Dr. Malone OK for discharge if repeat orthostats negative. Discharge Plans: Per Dr. Malone, continue Metoprolol, DC HCTZ and decrease Valsartan to 20 mg PO QD. Repeat orthostats were positive. Plans for IVF and repeat orthostats later on today. If negative, he can be discharged home. General: non toxic, no distress, appears at stated age Derm: warm, dry Head: atraumatic, normocephalic, symmetric Eyes: EOMI, no lid lag, anicteric sclera Mouth: no lip lesion, mucus membranes moist Cardiovascular: S1S2 irreg, no murmur Lungs: Decreased BS bilateral, no rhonchi, no rales , no accessory muscle use Ext: no gross muscle atrophy, no edema, no contractures Neuro: no focal neuro deficits Psych: Alert, oriented, appropriate affect Discharge Diagnosis: Orthostatic hypotension likely due to overtitration of anti-hypertensive medication exacerbated by significant weight loss A-Fib on Eliquis CHF unknown EF This complex discharge took 35 minutes to complete. Patient Condition at Discharge: Stable Plan - Discharge Summary New Discharge Prescriptions: New Valsartan [Diovan] 20 mg PO DAILY #30 tab Continue Cyclobenzaprine HCl 10 mg PO TID PRN PRN Reason: Pain Apixaban [Eliquis] 5 mg PO BID Docusate [Colace] 100 mg PO BID #60 capsule oxyCODONE-APAP 10-325MG [Percocet 10-325 mg] 1 tab PO Q4-6H PRN PRN Reason: Pain Tamsulosin HCl [Flomax] 0.4 mg PO DAILY clonazePAM [KlonoPIN] 4 mg PO HS Clopidogrel [Plavix] 75 mg PO DAILY 30 Days #30 tablet Nystatin 100,000 Unit/gm Powd [Mycostatin Powder] 1 applic TOPICAL BID #60 gm Famotidine [Pepcid] 20 mg PO DAILY Metoprolol Tartrate [Lopressor] 25 mg PO BID Zinc Gluconate [Zinc] 50 mg PO DAILY Meclizine [Antivert] 25 mg PO TID #30 tab Omeprazole 40 mg PO DAILY clonazePAM [KlonoPIN] 1 mg PO DAILY Folic Acid 1 mg PO DAILY #60 tablet Atorvastatin [Lipitor] 40 mg PO HS Cetirizine HCl 10 mg PO DAILY Discontinued Valsartan 320 mg PO DAILY hydroCHLOROthiazide [Hydrodiuril] 25 mg PO DAILY Discharge Medication List Omeprazole 40 mg PO DAILY 07/10/23 [History] Cyclobenzaprine HCl 10 mg PO TID PRN 11/18/23 [History] clonazePAM [KlonoPIN] 1 mg PO DAILY 01/16/24 [History] Apixaban [Eliquis] 5 mg PO BID 06/03/24 [History] Docusate [Colace] 100 mg PO BID #60 capsule 07/27/24 [Rx] Tamsulosin HCl [Flomax] 0.4 mg PO DAILY 11/17/24 [History] oxyCODONE-APAP 10-325MG [Percocet 10-325 mg] 1 tab PO Q4-6H PRN 11/17/24 [History] Folic Acid 1 mg PO DAILY #60 tablet 11/19/24 [Rx] clonazePAM [KlonoPIN] 4 mg PO HS 12/03/24 [History] Clopidogrel [Plavix] 75 mg PO DAILY 30 Days #30 tablet 12/06/24 [Rx] Nystatin 100,000 Unit/gm Powd [Mycostatin Powder] 1 applic TOPICAL BID #60 gm 01/18/25 [Rx] Atorvastatin [Lipitor] 40 mg PO HS 03/17/25 [History] Famotidine [Pepcid] 20 mg PO DAILY 03/17/25 [History] Metoprolol Tartrate [Lopressor] 25 mg PO BID 03/17/25 [History] Zinc Gluconate [Zinc] 50 mg PO DAILY 03/17/25 [History] Meclizine [Antivert] 25 mg PO TID #30 tab 03/25/25 [Rx] Cetirizine HCl 10 mg PO DAILY 05/05/25 [History] Valsartan [Diovan] 20 mg PO DAILY #30 tab 05/05/25 [Rx] Follow up Appointment(s)/Referral(s): French Malone MD [Medical Doctor] - 1 Week Aden Diaz MD [Primary Care Provider] - 1-2 days Discharge Disposition: HOME SELF-CARE
[2025-05-05] MEDS: ATORVASTATIN 40 MG TAB PO SCH (20:34)
[2025-05-05] MEDS: clonazePAM 1 MG TAB PO SCH (22:30)
--- NOTE | 2025-05-06 00:40 | P.CRDCN ---
History of Present Illness Consult date: 05/05/25 History of present illness: HISTORY OF PRESENTING ILLNESS: 45-year-old known to Dr. Wolfe Per history of paroxysmal atrial fibrillation, PFO closure, essential hyperte nsion, bariatric surgery Presented the hospital because of feeling lightheaded and dizzy on admission he was found to have evidence of abnormal orthostatic vital signs. He was also noticed to have borderline low blood pressure. On review his home medication he is noticed to be on multiple antihypertensives which include valsartan 350 mg, metoprolol, Dyazide. His blood pressure medications were held and still his blood pressure was low normal. Repeat orthostatic vital signs the next day are still abnormal. Admission labs did not show any elevated troponin, and was essentially within normal limits EKG does not show any significant ST-T wave changes concerning for ischemia Telemetry shows sinus rhythm and sinus tachycardia REVIEW OF SYSTEMS: 14 point review of system is negative except what is mentioned above in HPI. PHYSICAL EXAMINATION: Neck: Brisk carotid upstroke, no jugular venous distention. Lungs: Clear to auscultation. Heart: Regular rate and rhythm, S1-S2, , no murmur or rub. Abdomen: Soft nontender, positive bowel sounds. Extremities: No edema, intact distal pulses. Neuro: Alert, oritented, no focal deficits. Detailed neuro exam was not performed. ASSESSMENT: # Lightheadedness and dizziness, likely related to orthostatic hypotension most likely because of excessive antihypertensive use # Prior history of essential hypertension # Prior history of paroxysmal atrial fibrillation # Prior history of DVT # Prior history of PFO closure # Ocular migraines PLAN: I recommend stopping his Dyazide. Continue valsartan at 20 mg daily and metoprolol 25 mg twice daily He is otherwise cleared to be discharged from cardiovascular standpoint Recommend outpatient follow-up with Dr. Aiden Malnoe MD, [facility], [facility] Thank you for allowing [facility] to participate in this patient's care. Feel free to reach out in case of any followup questions. Past Medical History Past Medical History: Atrial Fibrillation, Blood Disorder, CVA/TIA, Deep Vein Thrombosis (DVT), GERD/Reflux, Hearing Disorder / Deafness, Hypertension, Myocardial Infarction ([place]), Osteoarthritis (OA), Sleep Apnea/CPAP/BIPAP Additional Past Medical History / Comment(s): DVT X 3- LAST TIME 2012- LT LEG, LUMBAR DDD- . HAS HX MTHFR GENE MUTATION-POSITIVE FOR HETEROZYGOUS PER DR. FRANCISCO'S OFFICE, doesn't not use CPAP, occasional swelling left lower leg, Pt states he had a stroke-September of 2024- left eye vision issues, speech slurring-going to speech therapy. PFO being seen by cardiology in [facility]. Last Myocardial Infarction Date:: 09/2021 History of Any Multi-Drug Resistant Organisms: None Reported Past Surgical History: Bariatric Surgery, Cardiac Ablation, Cholecystectomy, Heart Catheterization, Joint Replacement Additional Past Surgical History / Comment(s): LEFT KNEE REPLACEMENT, LT INDEX JOINT REPLACEMENT, PAIN CLINIC PROCEDURES, COLONOSCOPY, EGD, PFO closure in heart at [facility] 02/2025. Gastric bypass 07-06-23 Past Anesthesia/Blood Transfusion Reactions: Previous Problems w/ Anesthesia, Family History of Problems w/ Anesthesia, Motion Sickness Additional Past Anesthesia/Blood Transfusion Reaction / Comment(s): HARD TO PUT TO SLEEP-(pt and father)-needs more than normal. no hx blood transfusion Past Psychological History: Depression Smoking Status: Never smoker Past Alcohol Use History: Rare Past Drug Use History: Prescription Drug Abuse - Past Family History Sister(s) Family Medical History: Cancer Additional Family Medical History / Comment(s): Skin cancer. Mother History Unknown: Yes Medications and Allergies Home Medications Medication Instructions Recorded Confirmed Type Omeprazole 40 mg PO DAILY 07/10/23 05/05/25 History Cyclobenzaprine HCl 10 mg PO TID PRN 11/18/23 05/05/25 History clonazePAM [KlonoPIN] 1 mg PO DAILY 01/16/24 05/05/25 History Apixaban [Eliquis] 5 mg PO BID 06/03/24 05/05/25 History Docusate [Colace] 100 mg PO BID #60 capsule 07/27/24 05/05/25 Rx Tamsulosin HCl [Flomax] 0.4 mg PO DAILY 11/17/24 05/05/25 History oxyCODONE-APAP 10-325MG [Percocet 1 tab PO Q4-6H PRN 11/17/24 05/05/25 History 10-325 mg] Folic Acid 1 mg PO DAILY #60 tablet 11/19/24 05/05/25 Rx clonazePAM [KlonoPIN] 4 mg PO HS 12/03/24 05/05/25 History Clopidogrel [Plavix] 75 mg PO DAILY 30 Days #30 tablet 12/06/24 05/05/25 Rx Nystatin 100,000 Unit/gm Powd 1 applic TOPICAL BID #60 gm 01/18/25 05/05/25 Rx [Mycostatin Powder] Atorvastatin [Lipitor] 40 mg PO HS 03/17/25 05/05/25 History Famotidine [Pepcid] 20 mg PO DAILY 03/17/25 05/05/25 History Metoprolol Tartrate [Lopressor] 25 mg PO BID 03/17/25 05/05/25 History Zinc Gluconate [Zinc] 50 mg PO DAILY 03/17/25 05/05/25 History Meclizine [Antivert] 25 mg PO TID #30 tab 03/25/25 05/05/25 Rx Cetirizine HCl 10 mg PO DAILY 05/05/25 05/05/25 History Valsartan [Diovan] 20 mg PO DAILY #30 tab 05/05/25 Rx Allergies Allergy/AdvReac Type Severity Reaction Status Date / Time No Known Allergies Allergy Verified 05/05/25 11:48 Physical Exam Vitals: Vital Signs Temp Pulse Pulse Pulse Pulse Pulse Pulse 05/05/25 20:34 86 92 82 05/05/25 18:05 98.2 F 95 90 85 05/05/25 15:00 88 05/05/25 08:00 83 05/05/25 07:46 98.2 F 82 05/05/25 07:00 81 05/05/25 05:00 77 05/05/25 04:00 79 05/05/25 03:00 77 05/05/25 02:00 80 05/05/25 01:00 97.6 F 79 Resp BP BP BP BP Pulse Ox 05/05/25 20:34 112/72 97/63 110/72 05/05/25 18:05 16 96/59 102/68 118/72 99 05/05/25 15:00 97/64 83/57 103/53 05/05/25 08:00 05/05/25 07:46 16 117/79 98 05/05/25 07:00 104/64 05/05/25 05:00 104/67 95 05/05/25 04:00 16 97/61 98 05/05/25 03:00 105/64 96 05/05/25 02:00 16 102/63 97 05/05/25 01:00 16 111/69 97 Intake and Output 05/05/25 05/05/25 05/06/25 14:59 22:59 06:59 Intake Total 75 Balance 75 Intake: IV 75 0.9 75 Other: # Voids 1 1 Results 05/04/25 18:29 05/04/25 18:29 Cardiac Enzymes 05/05/25 05/05/25 Range/Units 03:47 08:19 Troponin I <0.012 <0.012 (0.000-0.034) ng/mL Current Medications Generic Name Dose Route Start Last Admin Trade Name Freq PRN Reason Stop Dose Admin Acetaminophen 650 mg 05/05/25 00:45 Acetaminophen Tab 325 Mg Tab PO Q6HR PRN Mild Pain or Fever > 100.5 Apixaban 5 mg 05/05/25 09:15 05/05/25 20:34 Apixaban 5 Mg Tab PO 5 mg BID LEONARD Administration Protocol Atorvastatin Calcium 40 mg 05/05/25 21:00 05/05/25 20:34 Atorvastatin 40 Mg Tab PO 40 mg HS LEONARD Administration Clonazepam 4 mg 05/05/25 21:30 05/05/25 22:30 Clonazepam 1 Mg Tab PO 4 mg HS LEONARD Administration Hydromorphone HCl 0.5 mg 05/05/25 00:45 05/05/25 22:28 Hydromorphone 0.5 Mg/0.5 Ml Syringe IVP 0.5 mg Q3HR PRN Administration Moderate Pain (Scale 4 to 6) Metoprolol Tartrate 25 mg 05/05/25 09:15 05/05/25 20:34 Metoprolol Tartrate 25 Mg Tab PO 25 mg BID LEONARD Administration Naloxone HCl 0.2 mg 05/05/25 00:45 Naloxone 0.4 Mg/Ml 1 Ml Vial IV Q2M PRN Opioid Reversal Ondansetron HCl 4 mg 05/05/25 00:45 Ondansetron 4 Mg/2 Ml Vial IVP Q8HR PRN Nausea And Vomiting Intake and Output 05/05/25 05/05/25 05/06/25 14:59 22:59 06:59 Intake Total 75 Balance 75 Intake: IV 75 0.9 75 Other: # Voids 1 1 05/04/25 18:29 05/04/25 18:29
[2025-05-06] MEDS ORDERED: CYCLOBENZAPRINE 10 MG TAB PO PRN (06:39)
[2025-05-06] MEDS ORDERED: oxyCODONE-APAP 10-325MG 1 EACH TAB PO PRN (06:39)
[2025-05-06 07:25] VITALS: RESP 14; TEMP 97.9
[2025-05-06 07:49] LABS: Basophils # (A) 0.05 10*3/uL (0.00-0.10); Basophils % (A) 0.9 %; Eosinophils # (A) 0.21 10*3/uL (0.04-0.35); Eosinophils % (A) 3.8 %; HCT 43.2 % (39.6-50.0); Lymphocytes # (A) 1.36 10*3/uL (0.90-5.00); Lymphocytes % (A) 24.7 %; MCH 27.5 pg (27.0-32.0); MCHC 32.4 g/dL (32.0-37.0); MCV 84.9 fL (80.0-97.0); Monocytes # (A) 0.47 10*3/uL (0.20-1.00); Monocytes % (A) 8.5 %; Neutrophils % (A) 61.7 %; Platelet Count 203 10*3/uL (140-440); RBC 5.09 10*6/uL (4.40-5.60); RDW 13.2 % (11.5-14.5); WBC 5.51 10*3/uL (4.50-10.00)
[2025-05-06 07:57] VITALS: BP 100/62; PULSE 73
[2025-05-06 08:06] LABS: ALT 12 U/L (4-49); AST 14 U/L (17-59); African American GFR (CKD) >90 (>60 ml/min/1.73 sqM); Albumin 3.7 g/dL (3.5-5.0); Albumin/Globulin Ratio 1.8; Alkaline Phosphatase 67 U/L (38-126); Anion Gap 5 mmol/L; Blood Urea Nitrogen 13 mg/dL (9-20); Calcium 9.4 mg/dL (8.4-10.2); Carbon Dioxide 26 mmol/L (22-30); Chloride 103 mmol/L (98-107); Globulin 2.1 g/dL; Glucose 87 mg/dL (74-99); Non-African American GFR(CKD) >90 (>60 ml/min/1.73 sqM); Potassium 4.4 mmol/L (3.5-5.1); Sodium 134 mmol/L (137-145); Total Bilirubin 0.9 mg/dL (0.2-1.3); Total Protein 5.8 g/dL (6.3-8.2)
[2025-05-06] MEDS: FOLIC ACID 1 MG TAB PO SCH (09:11)
[2025-05-06] MEDS: DOCUSATE 100 MG CAP PO SCH (09:11)
[2025-05-06] MEDS: clonazePAM 1 MG TAB PO SCH (09:11)
[2025-05-06] MEDS: TAMSULOSIN 0.4 MG CAP.ER.24H PO SCH (09:11)
[2025-05-06] MEDS: CLOPIDOGREL 75 MG TAB PO SCH (09:11)
[2025-05-06] MEDS: FAMOTIDINE 20 MG TAB PO SCH (09:11)
[2025-05-06] MEDS: LORATADINE 10 MG TAB PO SCH (09:11)
[2025-05-06] MEDS: PANTOPRAZOLE 40 MG TABLET PO SCH (09:17)
--- NOTE | 2025-05-06 13:13 | P.DS ---
Providers Date of admission: 05/05/25 00:45 Expected date of discharge: 05/06/25 Attending physician: Ofe Luo MD Consults: 05/05/25 00:45 Consult Physician Routine Consulting Provider: [facility] Consult Reason/Comments: chest pain, orthostatic hypotension, syncope Do you want consulting provider notified?: Yes Primary care physician: Aden Diaz MD Hospital Course: 45 year old M with PMH AFib and CHF unknown EF presents to the ED for positional lightheadedness. In the ED he underwent extensive evaluation. BP 105/72, HR 109, RR 15, T 98.2F, 100% on RA. CBC, Coag panel, CMP significant for RBC 5.92, Hct 50.1, Na 136, glu 104, Ca 10.4, alb 5.1. Trop < 0.012 x 3 with EKG showing A-Flutter rate of 113. D-Dimer 0.33. CXR and CT brain negative. Orthostats positive. Patient was admitted for Cardiology evaluation. Valsartan and HCTZ held. Dizziness improved. 05/05 Patient was seen and examined. Reports no lightheadedness. Apparently lost > 100 lbs over the past year. Discussed with OZIEL Rosas for discharge if repeat orthostats negative. 05/06 Patient was seen and examined. Discharge held yesterday due to persistent orthostat +. His orthostats are negative this morning. Denies chest pain, SOB, palpitations, lightheadedness. CBC and CMP significant for Na 134, AST 14, total protein 5.8. Discharge Plans: Continue Metoprolol, DC HCTZ and decrease Valsartan to 20 mg PO QD. General: non toxic, no distress, appears at stated age Derm: warm, dry Head: atraumatic, normocephalic, symmetric Eyes: EOMI, no lid lag, anicteric sclera Mouth: no lip lesion, mucus membranes moist Cardiovascular: S1S2 irreg, no murmur Lungs: Decreased BS bilateral, no rhonchi, no rales , no accessory muscle use Ext: no gross muscle atrophy, no edema, no contractures Neuro: no focal neuro deficits Psych: Alert, oriented, appropriate affect Discharge Diagnosis: Orthostatic hypotension likely due to overtitration of anti-hypertensive medication exacerbated by significant weight loss A-Fib on Eliquis CHF unknown EF This complex discharge took 35 minutes to complete. Patient Condition at Discharge: Stable Plan - Discharge Summary New Discharge Prescriptions: New Valsartan [Diovan] 20 mg PO DAILY #30 tab Continue Cyclobenzaprine HCl 10 mg PO TID PRN PRN Reason: Pain Apixaban [Eliquis] 5 mg PO BID Docusate [Colace] 100 mg PO BID #60 capsule oxyCODONE-APAP 10-325MG [Percocet 10-325 mg] 1 tab PO Q4-6H PRN PRN Reason: Pain Tamsulosin HCl [Flomax] 0.4 mg PO DAILY clonazePAM [KlonoPIN] 4 mg PO HS Clopidogrel [Plavix] 75 mg PO DAILY 30 Days #30 tablet Nystatin 100,000 Unit/gm Powd [Mycostatin Powder] 1 applic TOPICAL BID #60 gm Famotidine [Pepcid] 20 mg PO DAILY Metoprolol Tartrate [Lopressor] 25 mg PO BID Zinc Gluconate [Zinc] 50 mg PO DAILY Meclizine [Antivert] 25 mg PO TID #30 tab Omeprazole 40 mg PO DAILY clonazePAM [KlonoPIN] 1 mg PO DAILY Folic Acid 1 mg PO DAILY #60 tablet Atorvastatin [Lipitor] 40 mg PO HS Cetirizine HCl 10 mg PO DAILY Discontinued Valsartan 320 mg PO DAILY hydroCHLOROthiazide [Hydrodiuril] 25 mg PO DAILY Discharge Medication List Omeprazole 40 mg PO DAILY 07/10/23 [History] Cyclobenzaprine HCl 10 mg PO TID PRN 11/18/23 [History] clonazePAM [KlonoPIN] 1 mg PO DAILY 01/16/24 [History] Apixaban [Eliquis] 5 mg PO BID 06/03/24 [History] Docusate [Colace] 100 mg PO BID #60 capsule 07/27/24 [Rx] Tamsulosin HCl [Flomax] 0.4 mg PO DAILY 11/17/24 [History] oxyCODONE-APAP 10-325MG [Percocet 10-325 mg] 1 tab PO Q4-6H PRN 11/17/24 [History] Folic Acid 1 mg PO DAILY #60 tablet 11/19/24 [Rx] clonazePAM [KlonoPIN] 4 mg PO HS 12/03/24 [History] Clopidogrel [Plavix] 75 mg PO DAILY 30 Days #30 tablet 12/06/24 [Rx] Nystatin 100,000 Unit/gm Powd [Mycostatin Powder] 1 applic TOPICAL BID #60 gm 01/18/25 [Rx] Atorvastatin [Lipitor] 40 mg PO HS 03/17/25 [History] Famotidine [Pepcid] 20 mg PO DAILY 03/17/25 [History] Metoprolol Tartrate [Lopressor] 25 mg PO BID 03/17/25 [History] Zinc Gluconate [Zinc] 50 mg PO DAILY 03/17/25 [History] Meclizine [Antivert] 25 mg PO TID #30 tab 03/25/25 [Rx] Cetirizine HCl 10 mg PO DAILY 05/05/25 [History] Valsartan [Diovan] 20 mg PO DAILY #30 tab 05/05/25 [Rx] Follow up Appointment(s)/Referral(s): French Malone MD [Medical Doctor] - 1 Week Aden Diaz MD [Primary Care Provider] - 1-2 days Patient Instructions/Handouts: Syncope (DC) Discharge Disposition: HOME SELF-CARE
== END 2025-05-06 11:18 | disposition home or self-care (01) ==
LOC: EC 16:41 → 6NMEDSUR 05-05 00:45 → 1SOBS 05-05 05:01 → 6NMEDSUR 05-05 17:33
PROVIDERS: ADMIT Internal Medicine; ATTEND Internal Medicine
DX: I95.1 Orthostatic hypotension (principal); G43.B0 Ophthalmoplegic migraine, not intractable; I11.0 Hypertensive heart disease with heart failure; I50.9 Heart failure, unspecified; E83.52 Hypercalcemia; I48.0 Paroxysmal atrial fibrillation; K21.9 Gastro-esophageal reflux disease without esophagitis; G47.30 Sleep apnea, unspecified; F32.A Depression, unspecified; I25.2 Old myocardial infarction; Z86.718 Personal history of other venous thrombosis and embolism; Z86.73 Personal history of transient ischemic attack (TIA), and cerebral infarction without residual deficits; Z87.74 Personal history of (corrected) congenital malformations of heart and circulatory system; Z79.01 Long term (current) use of anticoagulants; Z79.02 Long term (current) use of antithrombotics/antiplatelets; Z79.899 Other long term (current) drug therapy
CPT/HCPCS: 96376 ×3; 96374; 96375 ×2; 99285; 36415; 93005; 85379; 80053 ×2; 83735; 84484 ×2; 85025 ×2; 85610; 85730; 71046; 70450; G0378 ×2; J1200; J2405; J1171 ×2